=== PATIENT | male | born 1955 | race Caucasian/White ===

== ENCOUNTER → 2017-10-06 | Outpatient (CLI) | payer MEDICARE, SELFPAY | PROVIDERS: Visit Provider Emergency Medicine | DX: Z79.899 Other long term (current) drug therapy (principal) | CPT/HCPCS: 80305 ==

== ENCOUNTER → 2017-10-30 10:54 | Outpatient (REF) | payer MEDICARE, SELFPAY ==
[2017-10-30 13:02] LABS: Amphetamine/Metha Screen,Urine Negative ng/mL (<1000); Barbiturates Screen,Urine Negative ng/mL (<200); Benzodiazepines Screen,Urine Negative ng/mL (200); Cannabinoid Screen,Urine Negative ng/mL (<50); Cocaine Screen,Urine Negative ng/g (<300); Methadone Screen,Urine Negative ng/mL (<300); Opiate Screen,Urine Positive ng/mL (<300); Phencyclidine Screen,Urine Negative ng/mL (<25)
== END ==
LOC: LAB 10:54
PROVIDERS: Visit Provider Emergency Medicine
DX: Z79.899 Other long term (current) drug therapy (principal)
CPT/HCPCS: 80305

== ENCOUNTER → 2017-11-26 11:46 | Outpatient (CLI) | payer MEDICARE, SELFPAY ==
[2017-11-26 12:31] LABS: Anion Gap 11.9 mEq/L (5-15); Blood Urea Nitrogen 16 mg/dL (7-18); Carbon Dioxide 30 mmol/L (21.0-32.0); Chloride 105 mmol/L (98-107); Creatinine,Serum 0.88 mg/dL (0.70-1.30); Estimated Glomerular Filt Rate 87 ml/min (>60); GFR (African American) 106 ML/MIN (>60); Glucose 105 mg/dL (74-106); Potassium 3.9 mmoL/L (3.5-5.1); Sodium 143 mmol/L (136-145)
[2017-11-26 20:33] LABS: Basophils # 0.1 K/mm3 (0-0.2); Basophils % 0.9 % (0.1-2.0); Eosinophils # 0.2 K/mm3 (0.0-0.4); Eosinophils % 3.3 % (0.1-12.0); Hemoglobin 12.9 g/dL (14.1-18.0); Lymphocytes % 31.5 K/mm3 (10-50); Mean Corpuscular HGB Conc 33.2 g/dL (31.8-35.4); Mean Corpuscular Hemoglobin 29.9 pg (27.0-31.2); Mean Platelet Volume 8.5 fl (7.4-10.4); Monocytes # 0.4 K/mm3 (0.1-1.0); Monocytes % 6.5 % (1.7-9.3); Neutrophils # 3.6 K/mm3 (1.8-7.8); Neutrophils % 57.8 % (37.0-80.0); Platelet Count 179 K/mm3 (142-424); Red Blood Count 4.34 M/mm3 (4.60-6.20); Red Cell Distribution Width 12.6 % (11.5-17.5); White Blood Count 6.3 K/mm3 (4.8-10.8)
== END ==
PROVIDERS: PCP Emergency Medicine; Visit Provider Surgery
DX: Z01.818 Encounter for other preprocedural examination (principal)
CPT/HCPCS: 36415; 80048; 85025

== ENCOUNTER 2017-12-03 07:56 | Day surgery (SDC) | payer MEDICARE, SELFPAY ==
[2017-11-30 15:06] VITALS: BMI 36.8
[2017-12-03 08:22] VITALS: BP 134/70; PULSE 85; RESP 20; TEMP 36.9; O2SAT 95
[2017-12-03 08:41] VITALS: O2SAT 98
--- NOTE | 2017-12-03 09:18 | HMH.SCOPE ---
- Procedure: Date: 12/03/17 Procedure Performed:: Esophagogastroduodenoscopy with biopsy Colonoscopy with polypectomy Indications:: This is a 62-year-old gentleman who returns for repeat colonoscopy. On October 18, 2014 he had a colonoscopy that revealed a tubular adenoma at 5 cm. Some difficulty with visualization, as well as a size/nature of the polyp led to the need for short-term reevaluation. In addition, he has some fairly significant heartburn over the past few months. Performing Provider:: Willie Dawn MD Referring Provider:: Dr. Ryan Sedation:: Monitored anesthesia care Procedure:: After informed consent was obtained, the patient was taken to the endoscopy suite. Monitored anesthesia care ensued after he was transferred to the left lateral decubitus position. The gastroscope was advanced. Stomach was entered. Retroflexion revealed a moderate sliding hiatal hernia. Streaking gastritis distally versus GAVE was noted biopsies were obtained. The polyp intubated. The duodenal mucosa appeared relatively normal. The gastroesophageal junction was at 38 cm. The gastroscope was carefully removed. Digital rectal exam revealed some tags. No thrombosis or bleeding was noted. The colonoscope was placed in position. The entire colon was evaluated. Bowel preparation was poor. A cecal polyp was excised by way of snare. Visualization was very limited. The colonoscope was removed and the patient was transferred to recovery. Findings:: Gastroesophageal junction at 38cm GAVE versus streaking gastritis distally Moderate sliding hiatal hernia Bowel preparation poor for colonoscopy Cecal polyp Specimens:: Antral biopsy Cecal polyp (snared) Recommendations:: Repeat colonoscopy is pending pathology but will likely be around 6 months secondary to severe limitations in visualization/poor prep. Complications:: No immediate with the exception of poor bowel preparation Estimated blood obtained (mL): 1
[2017-12-03 09:20] VITALS: BP 116/82; PULSE 93; RESP 16; TEMP 36.8; O2SAT 96
[2017-12-03 09:30] VITALS: BP 117/69; PULSE 88; RESP 18; O2SAT 96
[2017-12-03 09:40] VITALS: BP 99/81; PULSE 81; RESP 16; O2SAT 95
[2017-12-03 09:50] VITALS: BP 109/71; PULSE 80; RESP 16; O2SAT 97
--- NOTE | 2017-12-03 10:20 | P.PN_ITS ---
[facility] Anesthesia Checklist - Structural Data Admitted From: Home Planned Operative Procedure/s: egd/colonoscopy Consent for Planned Operative Procedure(s) Verified: Yes - Airway Assessment C-Spine Mobility Assessed: Yes TMJ Mobility Assessed: Yes Dentition: Good Dentition - Neurological Assessment Level of Consciousness: Awake, Alert - Anesthesia Plan Anesthesia Risk discussed: Yes Anesthesia Plan: Verified ASA Class: III Anesthesia Type: MAC [facility] Anesthesia HX I have reviewed the patient's past medical history: Yes Medical History: Reports:: Coronary Artery Disease, Gastroesophageal Reflux Disease(GERD), Hyperlipidemia, Hypertension Denies:: Diabetes Mellitus Type 1, Diabetes Mellitus Type 2, Internal Pacemaker, Lung Disease, Seizures Other Medical History: Reports: Other (Stroke) Other Surgeries: Yes: Angioplasty, Colonoscopy, Coronary Stent (x4 in 2016), EGD , Other (Heart Stents). No: Pacemaker Amputation: No Fractures: No *Family Hx:: Diabetes, Heart Attack, Coronary Artery Disease
== END 2017-12-03 09:50 | disposition home or self-care (01) ==
LOC: OUTP 07:58
PROVIDERS: PCP Emergency Medicine; Visit Provider Surgery
PROC: 0DJ08ZZ Inspection of Upper Intestinal Tract, Via Natural or Artificial Opening Endoscopic (ICD-10-PCS; CPT 43235; principal; 2017-12-03 08:30)
DX: K44.9 Diaphragmatic hernia without obstruction or gangrene (principal); K29.70 Gastritis, unspecified, without bleeding; Z86.010 Personal history of colon polyps; K63.5 Polyp of colon; Z12.11 Encounter for screening for malignant neoplasm of colon; D12.0 Benign neoplasm of cecum; K31.819 Angiodysplasia of stomach and duodenum without bleeding
CPT/HCPCS: 43239; 45385; 88305

== ENCOUNTER → 2017-12-21 11:07 | Outpatient (REF) | payer MEDICARE, SELFPAY ==
[2017-12-21 15:00] LABS: Amphetamine/Metha Screen,Urine Negative ng/mL (<1000); Barbiturates Screen,Urine Negative ng/mL (<200); Benzodiazepines Screen,Urine Negative ng/mL (200); Cannabinoid Screen,Urine Negative ng/mL (<50); Cocaine Screen,Urine Negative ng/g (<300); Methadone Screen,Urine Negative ng/mL (<300); Opiate Screen,Urine Positive ng/mL (<300); Phencyclidine Screen,Urine Negative ng/mL (<25)
== END ==
LOC: LAB 11:07
PROVIDERS: Visit Provider Emergency Medicine
DX: Z79.899 Other long term (current) drug therapy (principal)
CPT/HCPCS: 80305

== ENCOUNTER → 2018-02-08 10:18 | Outpatient (REF) | payer MEDICARE, SELFPAY ==
[2018-02-08 13:55] LABS: Amphetamine/Metha Screen,Urine Negative ng/mL (<1000); Barbiturates Screen,Urine Negative ng/mL (<200); Benzodiazepines Screen,Urine Negative ng/mL (200); Cannabinoid Screen,Urine Negative ng/mL (<50); Cocaine Screen,Urine Negative ng/g (<300); Methadone Screen,Urine Negative ng/mL (<300); Opiate Screen,Urine Positive ng/mL (<300); Phencyclidine Screen,Urine Negative ng/mL (<25)
== END ==
LOC: LAB 10:18
PROVIDERS: Visit Provider Emergency Medicine
DX: Z79.899 Other long term (current) drug therapy (principal)
CPT/HCPCS: 80305

== ENCOUNTER → 2018-03-08 11:24 | Outpatient (REF) | payer MEDICARE, SELFPAY ==
[2018-03-08 14:21] LABS: Amphetamine/Metha Screen,Urine Negative ng/mL (<1000); Barbiturates Screen,Urine Negative ng/mL (<200); Benzodiazepines Screen,Urine Negative ng/mL (200); Cannabinoid Screen,Urine Negative ng/mL (<50); Cocaine Screen,Urine Negative ng/g (<300); Methadone Screen,Urine Negative ng/mL (<300); Opiate Screen,Urine Positive ng/mL (<300); Phencyclidine Screen,Urine Negative ng/mL (<25)
== END ==
LOC: LAB 11:24
PROVIDERS: Visit Provider Emergency Medicine
DX: Z79.899 Other long term (current) drug therapy (principal)
CPT/HCPCS: 80305

== ENCOUNTER → 2018-03-31 10:12 | Outpatient (REF) | payer MEDICARE, SELFPAY ==
[2018-03-31 14:17] LABS: Amphetamine/Metha Screen,Urine Negative ng/mL (<1000); Barbiturates Screen,Urine Negative ng/mL (<200); Benzodiazepines Screen,Urine Negative ng/mL (200); Cannabinoid Screen,Urine Negative ng/mL (<50); Cocaine Screen,Urine Negative ng/g (<300); Methadone Screen,Urine Negative ng/mL (<300); Opiate Screen,Urine Positive ng/mL (<300); Phencyclidine Screen,Urine Negative ng/mL (<25)
== END ==
LOC: LAB 10:12
PROVIDERS: Visit Provider Emergency Medicine
DX: Z79.899 Other long term (current) drug therapy (principal)
CPT/HCPCS: 80305

== ENCOUNTER → 2018-05-05 10:00 | Outpatient (REF) | payer MEDICARE, SELFPAY ==
[2018-05-05 18:34] LABS: Amphetamine/Metha Screen,Urine Negative ng/mL (<1000); Barbiturates Screen,Urine Negative ng/mL (<200); Benzodiazepines Screen,Urine Negative ng/mL (<200); Cannabinoid Screen,Urine Negative ng/mL (<50); Cocaine Screen,Urine Negative ng/mL (<300); Methadone Screen,Urine Negative ng/mL (<300); Opiate Screen,Urine Positive ng/mL (<300); Phencyclidine Screen,Urine Negative ng/mL (<25)
== END ==
LOC: LAB 10:00
PROVIDERS: Visit Provider Emergency Medicine
DX: Z79.899 Other long term (current) drug therapy (principal)
CPT/HCPCS: 80305

== ENCOUNTER → 2018-06-02 13:20 | Outpatient (REF) | payer MEDICARE, SELFPAY ==
[2018-06-02 19:32] LABS: Basophils % 0.7 % (0.1-2.0); Eosinophils # 0.1 K/mm3 (0.0-0.4); Eosinophils % 1.5 % (0.1-12.0); Hematocrit 40.3 % (42.0-52.0); Lymphocytes # 1.5 K/mm3 (0.7-4.5); Lymphocytes % 25.3 K/mm3 (10-50); Mean Corpuscular HGB Conc 32.4 g/dL (31.8-35.4); Mean Corpuscular Hemoglobin 28.9 pg (27.0-31.2); Mean Corpuscular Volume 89.1 fl (80-94); Monocytes # 0.3 K/mm3 (0.1-1.0); Monocytes % 5.9 % (1.7-9.3); Neutrophils # 3.9 K/mm3 (1.8-7.8); Neutrophils % 66.6 % (37.0-80.0); Platelet Count 228 K/mm3 (142-424); Red Blood Count 4.52 M/mm3 (4.60-6.20); Red Cell Distribution Width 12.6 % (11.5-17.5); White Blood Count 5.8 K/mm3 (4.8-10.8)
[2018-06-02 20:10] LABS: Alanine Aminotransferase 25 U/L (12-78); Albumin Level 3.9 gm/dL (3.4-5.0); Albumin/Globulin Ratio 1.3 (1.1-1.8); Alkaline Phosphatase 55 U/L (46-116); Anion Gap 13.4 mEq/L (5-15); Aspartate Amino Transferase 11 U/L (15-37); Bilirubin,Total 0.3 mg/dL (0.2-1.0); Blood Urea Nitrogen 19 mg/dL (7-18); Carbon Dioxide 28 mmol/L (21.0-32.0); Chloride 105 mmol/L (98-107); Cholesterol 116 mg/dL (140-200); Creatinine,Serum 1.13 mg/dL (0.70-1.30); Estimated Glomerular Filt Rate 66 ml/min (>60); Free T4 (Free Thyroxine) 0.76 ng/dl (0.76-1.46); GFR (African American) 79 ML/MIN (>60); Glucose 113 mg/dL (74-106); HDL Cholesterol 39 mg/dL (27-67); LDL Cholesterol 46 mg/dL (0-130); Potassium 4.4 mmoL/L (3.5-5.1); Sodium 142 mmol/L (136-145); Thyroid Stimulating Hormone 0.73 uIU/ml (0.358-3.740); Total Protein,Serum 6.9 gm/dL (6.4-8.2); Triglycerides 157 mg/dL (30-200); VLDL Cholesterol 31 mg/dL (0-40)
[2018-06-02 20:19] LABS: Amphetamine/Metha Screen,Urine Negative ng/mL (<1000); Barbiturates Screen,Urine Negative ng/mL (<200); Benzodiazepines Screen,Urine Negative ng/mL (<200); Cannabinoid Screen,Urine Negative ng/mL (<50); Cocaine Screen,Urine Negative ng/mL (<300); Methadone Screen,Urine Negative ng/mL (<300); Opiate Screen,Urine Positive ng/mL (<300); Phencyclidine Screen,Urine Negative ng/mL (<25)
[2018-06-02 22:11] LABS: Erythrocyte Sedimentation Rate 15 mm/hr (0-20)
[2018-06-04 09:10] LABS: Vitamin D 25 Hydroxy 36.1 ng/mL (30.0-100.0)
[2018-06-04 18:08] LABS: Vitamin B12 667 pg/mL (232-1245)
[2018-06-08 08:27] LABS: Testosterone, Total, LC/MS 268.9 ng/dL (264.0-916.0); Testosterone,Free 2.3 pg/mL (6.6-18.1)
== END ==
LOC: LAB 13:20
PROVIDERS: Visit Provider Emergency Medicine
DX: Z79.899 Other long term (current) drug therapy (principal); M54.9 Dorsalgia, unspecified; I25.10 Atherosclerotic heart disease of native coronary artery without angina pectoris; E78.5 Hyperlipidemia, unspecified
CPT/HCPCS: 80053; 80061; 80305; 82607; 82652; 84402; 84403; 84439; 84443; 85025; 85651

== ENCOUNTER → 2018-07-02 10:48 | Outpatient (CLI) | payer MEDICARE, SELFPAY ==
[2018-07-02 18:20] LABS: Amphetamine/Metha Screen,Urine Negative ng/mL (<1000); Barbiturates Screen,Urine Negative ng/mL (<200); Benzodiazepines Screen,Urine Negative ng/mL (<200); Cannabinoid Screen,Urine Negative ng/mL (<50); Cocaine Screen,Urine Negative ng/mL (<300); Methadone Screen,Urine Negative ng/mL (<300); Opiate Screen,Urine Positive ng/mL (<300); Phencyclidine Screen,Urine Negative ng/mL (<25)
[2018-07-05 05:25] LABS: PSA, Free 0.17 ng/mL; Prostate Specific Ag 0.9 ng/mL (0.0-4.0)
== END ==
PROVIDERS: Visit Provider Emergency Medicine
DX: Z79.899 Other long term (current) drug therapy (principal); N52.9 Male erectile dysfunction, unspecified; N42.9 Disorder of prostate, unspecified
CPT/HCPCS: 80305; 84153; 84154

== ENCOUNTER → 2018-07-08 09:36 | Outpatient (CLI) | payer MEDICARE, SELFPAY ==
--- NOTE | 2018-07-08 09:37 | CI_ITS ---
Cerebrovascular Exam Indications: 785.9 Bruit. IMPRESSIONS 1. The bilateral vertebral arteries are patent with normal antegrade flow. 2. The bilateral subclavian arteries reveal no evidence of significant stenosis. 3. The bilateral external carotid arteries reveal no evidence of significant stenosis. 4. Study suggests less than 20% stenosis involving the right internal carotid artery. 5. Study suggests less than 20% stenosis involving the left internal carotid artery. Carotid duplex study. Complete study and Doppler flow study including spectral analysis, color and schwarz scale imaging. Height: Height: 172.7cm. Height: 68in. Weight: Weight: 102.1kg. Weight: 224.5lb. Body mass index: BMI: 34.2kg/m^2. Body surface area: BSA: 2.25m^2. Location: Vascular laboratory. Patient status: Outpatient. Tables: Arterial flow: + +---------+--------+ Location V sys V ed + +---------+--------+ Right CCA - proximal 71.7cm/s 19.5cm/s + +---------+--------+ Right CCA - distal -59.9cm/s 17.2cm/s + +---------+--------+ Right ECA 116cm/s 24.3cm/s + +---------+--------+ Right ICA - proximal 61.8cm/s 24.3cm/s + +---------+--------+ Right ICA - mid 70cm/s 33.1cm/s + +---------+--------+ Right ICA - distal 56.2cm/s 20.4cm/s + +---------+--------+ Right vertebral 49.6cm/s 24.3cm/s + +---------+--------+ Left CCA - proximal 104cm/s 27.9cm/s + +---------+--------+ Left CCA - distal 71.1cm/s 22.6cm/s + +---------+--------+ Left ECA 72.8cm/s 20.4cm/s + +---------+--------+ Left ICA - proximal 66.3cm/s 31.4cm/s + +---------+--------+ Left ICA - mid 113cm/s 40.5cm/s + +---------+--------+ Left ICA - distal 66.3cm/s 24.4cm/s + +---------+--------+ Left vertebral 48.1cm/s 20.6cm/s + +---------+--------+ Velocity ratios: + + + + + Right, V ed Left, V sys Left, V ed + + + + + Max ICA/dist CCA 1.92 1.59 1.79 + + + + + (Report amended ) Electronically signed by: Herber Mena [id number]
== END ==
PROVIDERS: PCP Emergency Medicine; Visit Provider Internal Medicine
DX: I73.9 Peripheral vascular disease, unspecified (principal); I25.10 Atherosclerotic heart disease of native coronary artery without angina pectoris; R09.89 Other specified symptoms and signs involving the circulatory and respiratory systems
CPT/HCPCS: 93880

== ENCOUNTER → 2018-07-28 14:28 | Outpatient (REF) | payer MEDICARE, SELFPAY ==
[2018-07-28 19:32] LABS: Amphetamine/Metha Screen,Urine Negative ng/mL (<1000); Barbiturates Screen,Urine Negative ng/mL (<200); Benzodiazepines Screen,Urine Negative ng/mL (<200); Cannabinoid Screen,Urine Negative ng/mL (<50); Cocaine Screen,Urine Negative ng/mL (<300); Methadone Screen,Urine Negative ng/mL (<300); Opiate Screen,Urine Positive ng/mL (<300); Phencyclidine Screen,Urine Negative ng/mL (<25)
== END ==
LOC: LAB 14:28
PROVIDERS: Visit Provider Emergency Medicine
DX: Z79.899 Other long term (current) drug therapy (principal)
CPT/HCPCS: 80305

== ENCOUNTER → 2018-08-26 18:29 | Outpatient (CLI) | payer MEDICARE, SELFPAY ==
[2018-08-26 19:50] LABS: Amphetamine/Metha Screen,Urine Negative ng/mL (<1000); Barbiturates Screen,Urine Negative ng/mL (<200); Benzodiazepines Screen,Urine Negative ng/mL (<200); Cannabinoid Screen,Urine Negative ng/mL (<50); Cocaine Screen,Urine Negative ng/mL (<300); Methadone Screen,Urine Negative ng/mL (<300); Opiate Screen,Urine Positive ng/mL (<300); Phencyclidine Screen,Urine Negative ng/mL (<25)
== END ==
PROVIDERS: Visit Provider Emergency Medicine
DX: Z79.899 Other long term (current) drug therapy (principal)
CPT/HCPCS: 80305

== ENCOUNTER → 2018-09-22 13:44 | Outpatient (CLI) | payer MEDICARE, SELFPAY ==
[2018-09-22 15:19] LABS: Amphetamine/Metha Screen,Urine Negative ng/mL (<1000); Barbiturates Screen,Urine Negative ng/mL (<200); Benzodiazepines Screen,Urine Negative ng/mL (<200); Cannabinoid Screen,Urine Negative ng/mL (<50); Cocaine Screen,Urine Negative ng/mL (<300); Methadone Screen,Urine Negative ng/mL (<300); Opiate Screen,Urine Positive ng/mL (<300); Phencyclidine Screen,Urine Negative ng/mL (<25)
== END ==
PROVIDERS: Visit Provider Emergency Medicine
DX: G89.29 Other chronic pain (principal); M54.5 Low back pain
CPT/HCPCS: 80305

== ENCOUNTER → 2018-10-25 14:03 | Outpatient (CLI) | payer MEDICARE, SELFPAY ==
[2018-10-25 19:16] LABS: Amphetamine/Metha Screen,Urine Negative ng/mL (<1000); Barbiturates Screen,Urine Negative ng/mL (<200); Benzodiazepines Screen,Urine Negative ng/mL (<200); Cannabinoid Screen,Urine Negative ng/mL (<50); Cocaine Screen,Urine Negative ng/mL (<300); Methadone Screen,Urine Negative ng/mL (<300); Opiate Screen,Urine Negative ng/mL (<300); Phencyclidine Screen,Urine Negative ng/mL (<25)
[2018-10-31 07:08] LABS: Oxycodone (GC/MS) 1925 ng/mL (Cutoff=100)
[2018-11-01 07:02] LABS: Opiates Negative (Cutoff=100); Oxymorphone (GC/MS) 392 ng/mL (Cutoff=100)
== END ==
PROVIDERS: Visit Provider Emergency Medicine
DX: G89.29 Other chronic pain (principal); M54.5 Low back pain
CPT/HCPCS: 80305; 80361; 80365; G0480

== ENCOUNTER → 2018-12-22 14:01 | Outpatient (CLI) | payer MEDICARE, SELFPAY ==
[2018-12-22 15:00] LABS: Amphetamine/Metha Screen,Urine Negative ng/mL (<1000); Barbiturates Screen,Urine Negative ng/mL (<200); Benzodiazepines Screen,Urine Negative ng/mL (<200); Cannabinoid Screen,Urine Negative ng/mL (<50); Cocaine Screen,Urine Negative ng/mL (<300); Methadone Screen,Urine Negative ng/mL (<300); Opiate Screen,Urine Negative ng/mL (<300); Phencyclidine Screen,Urine Negative ng/mL (<25)
== END ==
PROVIDERS: Visit Provider Emergency Medicine
DX: Z79.899 Other long term (current) drug therapy (principal)
CPT/HCPCS: 80305

== ENCOUNTER → 2019-02-21 13:48 | Outpatient (CLI) | payer MEDICARE, SELFPAY ==
[2019-02-21 14:29] LABS: Amphetamine/Metha Screen,Urine Negative ng/mL (<1000); Barbiturates Screen,Urine Negative ng/mL (<200); Benzodiazepines Screen,Urine Negative ng/mL (<200); Cannabinoid Screen,Urine Negative ng/mL (<50); Cocaine Screen,Urine Negative ng/mL (<300); Methadone Screen,Urine Negative ng/mL (<300); Opiate Screen,Urine Negative ng/mL (<300); Phencyclidine Screen,Urine Negative ng/mL (<25)
[2019-03-01 15:09] LABS: Oxycodone (GC/MS) 667 ng/mL (Cutoff=100)
[2019-03-02 06:52] LABS: Opiates Negative (Cutoff=100)
== END ==
PROVIDERS: Visit Provider Emergency Medicine
DX: G89.29 Other chronic pain (principal); M54.5 Low back pain; Z79.899 Other long term (current) drug therapy
CPT/HCPCS: 80305; 80361; 80365; G0480

== ENCOUNTER → 2019-03-16 13:16 | Outpatient (CLI) | payer MEDICARE, SELFPAY ==
--- NOTE | 2019-03-16 13:17 | CA_ITS ---
PROCEDURE: 2-D M-mode and color Doppler study INDICATIONS FOR THE TEST: Chest pain+ COPD Heart Murmur Tobacco Smoking Palpitations Fatigue Syncope Edema Hypertension+Diabetes Mellitus Rheumatic Fever SOB [place] Obesity Hyperlipidemia+ Family History HD Additional History CAD, GERD, cath, 4 cardiac stents PATIENT INFORMATION HEIGHT: 68 WEIGHT: 228 GENDER: Male B/P: 118/70 2-D/M-MODE INTERPRETATION: 2-D MEASUREMENTS OBSERVED VALUES IN CMS Right Ventricular Dimension (RVDd) 2.4 Interventricular Septum (Thickness)(IVsd) 0.9 Left Ventricular Internal Dimensions(LVIDd) 4.6 Left Ventricular Posterior Wall (Thickness)(LVPWd) 0.9 Aortic Root 3.0 Aortic Cusp Separation 2.0 Left Atrial Dimensions (LAD) 3.7 2D 1. Left atrium is mildly enlarged, left ventricle is normal size, mild concentric left ventricular hypertrophy, visually estimated ejection fraction of 55% with no regional wall motion abnormality. 2. The right atrium and right ventricle are normal size and contractility. 3. The aortic valve is minimally thickened and fibrosed. 4. The mitral and tricuspid valvular normal. 5. The pulmonic valve is poorly visualized. 6. No significant pericardial effusion noted. DOPPLER INTERROGATION: Doppler interrogation of the aortic, mitral and tricuspid valvular presence of mild mitral and tricuspid regurgitation, tricuspid regurgitation jet velocity is inadequate for calculation of the right ventricular systolic pressure, grade 1 diastolic dysfunction seen without tissue Doppler evidence of raised left atrial pressure. CONCLUSION: 1. Mildly enlarged left atrium, normal left ventricular size, mild concentric left ventricular hypertrophy, visually estimated ejection fraction of 55% with no regional wall motion abnormality, grade 1 diastolic dysfunction seen without tissue Doppler evidence of raised left atrial pressure. 2. Mild mitral and tricuspid regurgitation 3. No significant pericardial effusion noted.
== END ==
PROVIDERS: PCP Emergency Medicine; Visit Provider Urology
DX: I25.10 Atherosclerotic heart disease of native coronary artery without angina pectoris (principal); R06.02 Shortness of breath
CPT/HCPCS: 93306

== ENCOUNTER → 2019-04-19 14:20 | Outpatient (CLI) | payer MEDICARE, SELFPAY ==
[2019-04-19 16:20] LABS: Amphetamine/Metha Screen,Urine Negative ng/mL (<1000); Barbiturates Screen,Urine Negative ng/mL (<200); Benzodiazepines Screen,Urine Negative ng/mL (<200); Cannabinoid Screen,Urine Negative ng/mL (<50); Cocaine Screen,Urine Negative ng/mL (<300); Methadone Screen,Urine Negative ng/mL (<300); Opiate Screen,Urine Negative ng/mL (<300); Phencyclidine Screen,Urine Negative ng/mL (<25)
[2019-05-01 23:20] LABS: Oxycodone Positive (.); Oxymorphone Positive (.)
[2019-05-02 16:40] LABS: Oxycodone Confirm 807 ng/mL (Cutoff=100); Oxymorphone Confirm 148 ng/mL (Cutoff=100)
== END ==
PROVIDERS: Visit Provider Emergency Medicine
DX: G89.29 Other chronic pain (principal); Z79.891 Long term (current) use of opiate analgesic
CPT/HCPCS: 80305; 80365

== ENCOUNTER → 2019-06-07 07:04 | Outpatient (CLI) | payer MEDICARE, SELFPAY ==
[2019-06-07 08:47] LABS: Alanine Aminotransferase 22 U/L (12-78); Albumin Level 3.8 gm/dL (3.4-5.0); Alkaline Phosphatase 50 U/L (46-116); Aspartate Amino Transferase 10 U/L (15-37); Bilirubin,Direct 0.1 mg/dL (0.0-0.2); Bilirubin,Indirect 0.3 mg/dL (0.0-0.9); Bilirubin,Total 0.4 mg/dL (0.2-1.0); Chol/HDL Ratio 4.2 (1-3.5); Cholesterol 160 mg/dL (140-200); HDL Cholesterol 38 mg/dL (27-67); LDL Cholesterol 89 mg/dL (0-130); Total Protein,Serum 7.1 gm/dL (6.4-8.2); Triglycerides 164 mg/dL (30-200); VLDL Cholesterol 33 mg/dL (0-40)
== END ==
PROVIDERS: Visit Provider Internal Medicine
DX: I10 Essential (primary) hypertension (principal); E78.2 Mixed hyperlipidemia; I25.10 Atherosclerotic heart disease of native coronary artery without angina pectoris; Z95.5 Presence of coronary angioplasty implant and graft
CPT/HCPCS: 36415; 80061; 80076

== ENCOUNTER → 2019-06-08 10:36 | Outpatient (CLI) | payer MEDICARE, SELFPAY ==
--- NOTE | 2019-06-08 11:04 | CT_ITS ---
PROCEDURE: CT HEAD/BRAIN WO/W CON CLINICAL INDICATION: chronic headaches COMPARISON: HDWO CT HEAD W/O CONTRAST from 06/05/2017 TECHNIQUE: IV Contrast: 100ML OPITRAY 320 Axial images obtained with sagittal and coronal reformats. All CT scans at the facility use one or more dose reduction, viz: automated exposure control, ma/kV adjustment per patient size (including targeted exams where dose is matched to indication, i.e. head), or iterative reconstruction technique. FINDINGS: No midline shift, mass effect, intracranial hemorrhage, hydrocephalus, or extra-axial fluid collection is evident. No enhancing lesions are evident. The calvarium has an unremarkable appearance. No mastoid effusion or sinus air-fluid level there is mild mucosal thickening of the right maxillary sinus IMPRESSION: Negative CT head without contrast. Mild sinus disease Dictated by: Herber Mena MD 06/08/2019 18:16 Signed by: <Electronically signed by Herber Mena MD in [facility]> 06/08/2019 18:16
[2019-06-08 11:20] LABS: Alanine Aminotransferase 22 U/L (12-78); Alkaline Phosphatase 52 U/L (46-116); Anion Gap 9.6 mEq/L (5-15); Aspartate Amino Transferase 11 U/L (15-37); Bilirubin,Direct 0.1 mg/dL (0.0-0.2); Bilirubin,Indirect 0.3 mg/dL (0.0-0.9); Bilirubin,Total 0.4 mg/dL (0.2-1.0); Blood Urea Nitrogen 17 mg/dL (7-18); Calcium 9.2 mg/dL (8.5-10.1); Carbon Dioxide 32 mmol/L (21.0-32.0); Chloride 99 mmol/L (98-107); Chol/HDL Ratio 3.8 (1-3.5); Cholesterol 150 mg/dL (140-200); Creatinine,Serum 1.23 mg/dL (0.70-1.30); Estimated Glomerular Filt Rate 59 ml/min (>60); GFR (African American) 72 ML/MIN (>60); Glucose 104 mg/dL (74-106); HDL Cholesterol 39 mg/dL (27-67); LDL Cholesterol 80 mg/dL (0-130); Potassium 4.6 mmoL/L (3.5-5.1); Sodium 136 mmol/L (136-145); Total Protein,Serum 7.6 gm/dL (6.4-8.2); Triglycerides 157 mg/dL (30-200); VLDL Cholesterol 31 mg/dL (0-40)
== END ==
PROVIDERS: Visit Provider Urology
DX: E78.2 Mixed hyperlipidemia; I25.118 Atherosclerotic heart disease of native coronary artery with other forms of angina pectoris; R06.02 Shortness of breath; I10 Essential (primary) hypertension; I25.10 Atherosclerotic heart disease of native coronary artery without angina pectoris; R55 Syncope and collapse; E78.5 Hyperlipidemia, unspecified; R42 Dizziness and giddiness; R51 Headache; Z95.5 Presence of coronary angioplasty implant and graft; I65.23 Occlusion and stenosis of bilateral carotid arteries
CPT/HCPCS: 36415; 70470; 80048; 80061; 80076; Q9967

== ENCOUNTER → 2019-06-21 13:40 | Outpatient (CLI) | payer MEDICARE, SELFPAY ==
[2019-06-21 15:58] LABS: Amphetamine/Metha Screen,Urine Negative ng/mL (<1000); Barbiturates Screen,Urine Negative ng/mL (<200); Benzodiazepines Screen,Urine Negative ng/mL (<200); Cannabinoid Screen,Urine Negative ng/mL (<50); Cocaine Screen,Urine Negative ng/mL (<300); Methadone Screen,Urine Negative ng/mL (<300); Opiate Screen,Urine Negative ng/mL (<300); Phencyclidine Screen,Urine Negative ng/mL (<25)
== END ==
PROVIDERS: Visit Provider Emergency Medicine
DX: G89.29 Other chronic pain (principal)
CPT/HCPCS: 80305

== ENCOUNTER → 2019-08-19 13:32 | Outpatient (CLI) | payer MEDICARE, SELFPAY ==
[2019-08-19 15:39] LABS: Amphetamine/Metha Screen,Urine Negative ng/mL (<1000); Barbiturates Screen,Urine Negative ng/mL (<200); Benzodiazepines Screen,Urine Negative ng/mL (<200); Cannabinoid Screen,Urine Negative ng/mL (<50); Cocaine Screen,Urine Negative ng/mL (<300); Methadone Screen,Urine Negative ng/mL (<300); Opiate Screen,Urine Negative ng/mL (<300); Phencyclidine Screen,Urine Negative ng/mL (<25)
[2019-08-28 13:17] LABS: Oxycodone Positive (.); Oxymorphone Negative (Cutoff=100)
[2019-08-28 17:23] LABS: Oxycodone Confirm 935 ng/mL (Cutoff=100)
== END ==
PROVIDERS: Visit Provider Emergency Medicine
DX: Z79.899 Other long term (current) drug therapy (principal)
CPT/HCPCS: 80305; 80365

== ENCOUNTER → 2019-10-05 13:30 | Outpatient (CLI) | payer MEDICARE, SELFPAY ==
[2019-10-05 19:37] LABS: Amphetamine/Metha Screen,Urine Negative ng/mL (<1000); Barbiturates Screen,Urine Negative ng/mL (<200); Benzodiazepines Screen,Urine Negative ng/mL (<200); Cannabinoid Screen,Urine Negative ng/mL (<50); Cocaine Screen,Urine Negative ng/mL (<300); Methadone Screen,Urine Negative ng/mL (<300); Opiate Screen,Urine Positive ng/mL (<300); Phencyclidine Screen,Urine Negative ng/mL (<25)
== END ==
PROVIDERS: Visit Provider Emergency Medicine
DX: Z79.899 Other long term (current) drug therapy (principal)
CPT/HCPCS: 80305

== ENCOUNTER → 2019-12-02 13:20 | Outpatient (CLI) | payer MEDICARE, SELFPAY ==
[2019-12-02 14:02] LABS: Blood Urea Nitrogen 23 mg/dL (7-18); Calcium 9.2 mg/dL (8.5-10.1); Carbon Dioxide 31 mmol/L (21.0-32.0); Chloride 104 mmol/L (98-107); Estimated Glomerular Filt Rate 61 ml/min (>60); GFR (African American) 74 ML/MIN (>60); Glucose 196 mg/dL (74-106); Sodium 143 mmol/L (137-145)
[2019-12-02 16:43] LABS: Amphetamine/Metha Screen,Urine Negative ng/mL (<1000); Barbiturates Screen,Urine Negative ng/mL (<200); Benzodiazepines Screen,Urine Negative ng/mL (<200); Cannabinoid Screen,Urine Negative ng/mL (<50); Cocaine Screen,Urine Negative ng/mL (<300); Methadone Screen,Urine Negative ng/mL (<300); Opiate Screen,Urine Negative ng/mL (<300); Phencyclidine Screen,Urine Negative ng/mL (<25)
[2019-12-02 17:24] LABS: Hemoglobin A1C 7.6 % (0.0-7.0)
[2019-12-11 18:13] LABS: Oxycodone (GC/MS) 1366 ng/mL (Cutoff=100)
[2019-12-11 22:07] LABS: Opiates Negative (Cutoff=100); Oxymorphone (GC/MS) 147 ng/mL (Cutoff=100)
== END ==
PROVIDERS: Visit Provider Emergency Medicine
DX: R53.83 Other fatigue (principal); Z79.899 Other long term (current) drug therapy
CPT/HCPCS: 80048; 80305; 80361; 80365; 83036; G0480

== ENCOUNTER → 2019-12-27 10:20 | Outpatient (CLI) | payer MEDICARE, SELFPAY ==
[2019-12-27 10:57] LABS: Basophils % 0.7 % (0.1-2.0); Eosinophils # 0.2 K/mm3 (0.0-0.4); Eosinophils % 3.9 % (0.1-12.0); Hemoglobin 11.7 g/dL (14.1-18.0); Lymphocytes # 1.2 K/mm3 (0.7-4.5); Lymphocytes % 22.6 % (10-50); Mean Corpuscular HGB Conc 33.5 g/dL (31.8-35.4); Mean Corpuscular Hemoglobin 29.4 pg (27.0-31.2); Mean Corpuscular Volume 87.7 fl (80-94); Mean Platelet Volume 7.6 fl (7.4-10.4); Monocytes # 0.4 K/mm3 (0.1-1.0); Monocytes % 6.5 % (1.7-9.3); Neutrophils # 3.5 K/mm3 (1.8-7.8); Neutrophils % 66.4 % (37.0-80.0); Platelet Count 216 K/mm3 (142-424); Red Blood Count 3.99 M/mm3 (4.60-6.20); Red Cell Distribution Width 12.6 % (11.5-17.5); White Blood Count 5.3 K/mm3 (4.8-10.8)
[2019-12-27 12:18] LABS: Alanine Aminotransferase 18 U/L (12-78); Albumin Level 4.2 g/dl (3.5-5.0); Alkaline Phosphatase 36 U/L (38-126); Aspartate Amino Transferase 27 U/L (17-59); Bilirubin,Indirect 0.4 mg/dL (0.0-0.9); Bilirubin,Total 0.4 mg/dl (0.2-1.3); Bilirubin,Unconjugated 0.4 mg/dL (0.0-1.1); Total Protein,Serum 6.8 g/dl (6.3-8.2)
== END ==
PROVIDERS: Visit Provider Surgery
DX: K82.8 Other specified diseases of gallbladder (principal); K82.9 Disease of gallbladder, unspecified
CPT/HCPCS: 36415; 80076; 85025

== ENCOUNTER → 2019-12-30 07:22 | Outpatient (CLI) | payer MEDICARE, SELFPAY ==
--- NOTE | 2019-12-30 07:23 | US_ITS ---
PROCEDURE: US GALLBLADDER CLINICAL INDICATION: RUQ and epigastric pain Right upper quadrant pain after eating COMPARISON: No exams were available for comparison FINDINGS: Pancreas: Poorly demonstrated and may be better evaluated with CT if clinically warranted Liver: Unremarkable. There is appropriate direction of blood flow within a non dilated portal vein. Right kidney: Unremarkable appearing. No hydronephrosis. Gallbladder: No stones are evident. There is no gallbladder wall thickening. Common duct is normal in diameter. IMPRESSION: Negative gallbladder ultrasound. No stones evident. Dictated by: Herber Mena MD 12/30/2019 10:14 Electronically signed by Herber Mena MD in [place] 12/30/2019 10:14
== END ==
PROVIDERS: PCP Emergency Medicine; Visit Provider Surgery
DX: K82.9 Disease of gallbladder, unspecified (principal); R10.11 Right upper quadrant pain
CPT/HCPCS: 76705

== ENCOUNTER → 2020-01-10 13:54 | Outpatient (CLI) | payer MEDICARE, SELFPAY ==
[2020-01-10 14:18] LABS: Basophils % 0.5 % (0.1-2.0); Eosinophils # 0.2 K/mm3 (0.0-0.4); Eosinophils % 2.6 % (0.1-12.0); Hematocrit 36.8 % (42.0-52.0); Hemoglobin 12.5 g/dL (14.1-18.0); Lymphocytes # 1.6 K/mm3 (0.7-4.5); Lymphocytes % 20.4 % (10-50); Mean Corpuscular HGB Conc 34.1 g/dL (31.8-35.4); Mean Platelet Volume 8.6 fl (7.4-10.4); Monocytes # 0.6 K/mm3 (0.1-1.0); Monocytes % 7.5 % (1.7-9.3); Neutrophils # 5.4 K/mm3 (1.8-7.8); Neutrophils % 68.9 % (37.0-80.0); Platelet Count 249 K/mm3 (142-424); Red Blood Count 4.18 M/mm3 (4.60-6.20); White Blood Count 7.8 K/mm3 (4.8-10.8)
[2020-01-10 14:25] LABS: Chloride 95 mmol/L (98-107); Potassium 4.7 mmoL/L (3.5-5.1); Sodium 136 mmol/L (136-145)
[2020-01-10 14:28] LABS: Anion Gap 14.7 mEq/L (5-15); Blood Urea Nitrogen 14 mg/dl (9-20); Calcium 9.5 mg/dl (8.4-10.2); Carbon Dioxide 31 mmol/L (22.0-30.0); Estimated Glomerular Filt Rate 67 ml/min (>60); GFR (African American) 81 ML/MIN (>60); Glucose 101 mg/dl (74-100)
[2020-01-10 14:41] LABS: Troponin I < 0.01 ng/ml (0.00-0.034)
[2020-01-10 15:12] LABS: Erythrocyte Sedimentation Rate 31 mm/hr (0-20)
== END ==
PROVIDERS: Visit Provider Physician Assistant
DX: R06.02 Shortness of breath (principal); R07.89 Other chest pain; R55 Syncope and collapse; I25.10 Atherosclerotic heart disease of native coronary artery without angina pectoris; R10.11 Right upper quadrant pain; R70.0 Elevated erythrocyte sedimentation rate
CPT/HCPCS: 36415; 80048; 84484; 85025; 85651

== ENCOUNTER → 2020-01-16 08:12 | Outpatient (CLI) | payer MEDICARE, SELFPAY ==
--- NOTE | 2020-01-16 08:13 | NM_ITS ---
PROCEDURE: NM HEPATOBILIARY WO PHARM CLINICAL INDICATION: ruq pain Chest pain with history of coronary stents COMPARISON: No exams were available for comparison TECHNIQUE: DOSE: 8.2 millicuries technetium 99 M Choletec administration FINDINGS: Homogeneous activity is present within the hepatic parenchyma. Activity is present in the gallbladder by 10 minutes. This is within normal limits. Approximately 45 minutes into the exam the patient reported the onset of chest pain and desired to discontinue the exam and present himself to the emergency department for evaluation of chest pain. Activity was not identified within the small intestine at termination of the exam at 45 minutes. This is nonspecific. The gallbladder ejection fraction was not performed. IMPRESSION: No evidence of cholecystitis. The exam was aborted by the patient at 45 minutes due to the onset of chest pain. Dictated by: Jack Salas 01/16/2020 10:00 Electronically signed by Jack Salas in [place] 01/16/2020 10:00
--- NOTE | 2020-01-16 09:46 | HMH.ITSHM ---
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 []RISPERIDONE MIRALAX METFORMIN LISINOPRIL GLIPIZIDE GABAPENTIN FLUOXETINE CLOPIDOGREL ATORVASTATIN FUROSEMIDE ASA PROAIR
== END ==
PROVIDERS: PCP Emergency Medicine; Visit Provider Surgery
DX: R10.11 Right upper quadrant pain (principal)
CPT/HCPCS: 78226; A9537

== ENCOUNTER → 2020-02-21 13:23 | Outpatient (CLI) | payer MEDICARE, SELFPAY ==
[2020-02-21 14:16] LABS: Erythrocyte Sedimentation Rate 28 mm/hr (0-20)
[2020-02-21 15:07] LABS: Thyroid Stimulating Hormone 0.76 uIU/mL (0.465-4.68)
[2020-02-22 08:42] LABS: Vitamin D 25 Hydroxy 19.9 ng/mL (30.0-100.0)
== END ==
PROVIDERS: Visit Provider Emergency Medicine
DX: K59.00 Constipation, unspecified (principal); R41.0 Disorientation, unspecified; R42 Dizziness and giddiness; R51 Headache; E55.9 Vitamin D deficiency, unspecified
CPT/HCPCS: 82652; 84439; 84443; 85651

== ENCOUNTER → 2020-02-23 10:33 | Outpatient (CLI) | payer MEDICARE, SELFPAY | PROVIDERS: PCP Emergency Medicine; Visit Provider Emergency Medicine | DX: J44.9 Chronic obstructive pulmonary disease, unspecified (principal) | CPT/HCPCS: 94060; 94618; 94726; 94729 ==

== ENCOUNTER → 2020-02-27 10:50 | Outpatient (CLI) | payer MEDICARE, SELFPAY ==
--- NOTE | 2020-02-27 10:50 | CA_ITS ---
APPROVED REPORT Nut Sheller: Yolie Padilla RVT Laterality: Bilateral Study Quality: Good Indications: dizziness/ possible TIA Risk Factors Hypertension: Doppler Spectral Velocity Analysis ECA (R) 106.30/8.70 cm/s ECA (L) 73.30/11.20 cm/s dICA (R) 66.60/24.00 cm/s dICA (L) 52.40/18.60 cm/s Lawrence (R) 62.60/22.20 cm/s Lawrence (L) 55.20/18.20 cm/s pICA (R) 68.40/25.30 cm/s pICA (L) 59.40/16.90 cm/s dCCA (R) 66.30/13.90 cm/s dCCA (L) 50.10/15.00 cm/s pCCA (R) 81.30/10.20 cm/s pCCA (L) 69.60/13.70 cm/s Vert (R) 35.40/13.10 cm/s Vert (L) 28.30/9.10 cm/s ICA/CCA 1.03 ICA/CCA 1.18 Conclusion Study suggests less than 20% stenosis of the right internal cartoid artery unchanged from 07/08/18. Study suggests less than 20% stenosis of the left internal cartoid artery unchanged from 07/08/18. Antegrade flow seen bilateral vertebral arteries. Left thyroid nodule visualized. Electronically signed by : Herber Mena MD 02/27/2020 18:18:36
== END ==
PROVIDERS: PCP Emergency Medicine; Visit Provider Emergency Medicine
DX: R42 Dizziness and giddiness (principal)
CPT/HCPCS: 93880

== ENCOUNTER → 2020-08-11 10:24 | Outpatient (CLI) | payer MEDICARE, SELFPAY ==
--- NOTE | 2020-08-11 10:24 | MR_ITS ---
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 3-D MIP and myelographic images are also rendered and reviewed FINDINGS: Normal alignment. Mild lumbar scoliosis convex right. The spinal cord ends at the L1 level. T11-T12: Mild degenerative disc disease with endplate of irregularity. T12-L1: Mild degenerative disc disease. L1-L2: Degenerate disc disease with minimal bulging disc along with facet and ligamentum hypertrophy with left-sided foraminal narrowing and anterior osteophytes. L2-L3: Mild degenerative disc disease with minimal bulging disc with facet and ligamentum hypertrophy with left-sided foraminal narrowing. L3-L4: Degenerative disc disease with bulging disc along with facet and ligamentum hypertrophy and a small central disc protrusion. Bilateral foraminal narrowing is present. The bulging disc is slightly worse in the small central disc protrusion has developed since the previous exam. L4-5: Severe degenerative disc disease with bulging disc and facet and ligamentum hypertrophy. There is severe left-sided foraminal narrowing and moderate right foraminal narrowing. These findings have worsened since the previous exam. There is prominent left lateral recess narrowing from the facet hypertrophy. L5-S1: Transitional segment is present at this level and is labeled as L5. Mild facet hypertrophy. IMPRESSION: 1. Multilevel lumbar spondylosis with degenerative disc disease along with facet and ligamentum hypertrophy and bulging discs. Please see above for detailed description at each level. 2. L3-L4: Degenerative disc disease with bulging disc along with facet and ligamentum hypertrophy and a small central disc protrusion. Bilateral foraminal narrowing is present. The bulging disc is slightly worse in the small central disc protrusion has developed since the previous exam. 3. L4-5: Severe degenerative disc disease with bulging disc and facet and ligamentum hypertrophy. There is severe left-sided foraminal narrowing and moderate right foraminal narrowing. These findings have worsened since the previous exam. There is prominent left lateral recess narrowing from the facet hypertrophy. Dictated by: Herber Mena MD 08/14/2020 11:35 Herber Mena MD in [place] 08/14/2020 11:35
== END ==
PROVIDERS: PCP Emergency Medicine; Visit Provider Emergency Medicine
DX: G89.29 Other chronic pain (principal); M54.5 Low back pain
CPT/HCPCS: 72148; 76376

== ENCOUNTER → 2021-01-23 14:07 | Outpatient (CLI) | payer MEDICARE, SELFPAY ==
[2021-01-23 15:27] LABS: Amphetamine/Metha Screen,Urine Negative ng/ml (<1000)
[2021-01-23 15:28] LABS: Barbiturates Screen,Urine Negative ng/ml (<200)
[2021-01-23 15:29] LABS: Benzodiazepines Screen,Urine Negative ng/ml (<200); Cannabinoid Screen,Urine Negative ng/ml (<50)
[2021-01-23 15:30] LABS: Cocaine Screen,Urine Negative ng/ml (<300); Methadone Screen,Urine Negative ng/ml (<300)
[2021-01-23 15:31] LABS: Opiate Screen,Urine Negative ng/ml (<300)
[2021-01-23 15:32] LABS: Phencyclidine Screen,Urine Negative ng/ml (<25)
== END ==
PROVIDERS: Visit Provider Emergency Medicine
DX: Z79.899 Other long term (current) drug therapy (principal)
CPT/HCPCS: 80305

== ENCOUNTER → 2021-03-08 07:47 | Outpatient (CLI) | payer MEDICARE, SELFPAY ==
[2021-03-08 09:08] LABS: Anion Gap 12.8 mEq/L (5-15); Blood Urea Nitrogen 13 mg/dl (9-20); Calcium 9.4 mg/dl (8.4-10.2); Carbon Dioxide 28 mmol/L (22.0-30.0); Chloride 102 mmol/L (98-107); Estimated Glomerular Filt Rate 75 ml/min (>60); GFR (African American) 90 ML/MIN (>60); Glucose 223 mg/dl (74-100); Potassium 4.8 mmoL/L (3.5-5.1); Sodium 138 mmol/L (136-145)
[2021-03-08 09:18] LABS: NT Pro Brain Natriuretic Pep. 50.4 pg/mL (0-125)
== END ==
PROVIDERS: Visit Provider Physician Assistant
DX: I10 Essential (primary) hypertension (principal); R06.01 Orthopnea
CPT/HCPCS: 36415; 80048; 83880

== ENCOUNTER → 2021-03-12 07:59 | Outpatient (CLI) | payer MEDICARE, SELFPAY ==
[2021-03-12 09:04] LABS: Hemoglobin A1C 7.1 % (4.0-6.0)
== END ==
PROVIDERS: Visit Provider Emergency Medicine
DX: R73.09 Other abnormal glucose (principal)
CPT/HCPCS: 36415; 83036

== ENCOUNTER → 2021-03-20 14:53 | Outpatient (CLI) | payer MEDICARE, SELFPAY ==
[2021-03-20 16:28] LABS: Amphetamine/Metha Screen,Urine Negative ng/ml (<1000); Barbiturates Screen,Urine Negative ng/ml (<200); Benzodiazepines Screen,Urine Negative ng/ml (<200); Cannabinoid Screen,Urine Negative ng/ml (<50); Cocaine Screen,Urine Negative ng/ml (<300); Methadone Screen,Urine Negative ng/ml (<300); Opiate Screen,Urine Negative ng/ml (<300); Phencyclidine Screen,Urine Negative ng/ml (<25)
== END ==
PROVIDERS: Visit Provider Emergency Medicine
DX: Z79.899 Other long term (current) drug therapy (principal)
CPT/HCPCS: 80305

== ENCOUNTER 2021-05-07 16:03 | Emergency (ER) | payer MEDICARE, SELFPAY ==
--- NOTE | 2021-05-07 15:51 | ECG_ITS ---
APPROVED REPORT Exam: Resting ECG HR:83 bpm ECG Measurements Heart Rate 83 AXES ME 144 P 40 QRSd 80 QRS 9 QT 344 T 34 QTc 404 Conclusion Normal sinus rhythm with sinus arrhythmia Normal ECG Electronically signed by : Malcolm Rodriguez, 05/09/2021 14:31:07
[2021-05-07 16:03] VITALS: BP 140/68; PULSE 83; RESP 19; TEMP 36.8; O2SAT 95; BMI 38.0
--- NOTE | 2021-05-07 16:07 | XR_ITS ---
PROCEDURE: XR CHEST 2V CLINICAL HISTORY: cough COMPARISON: CR XR CHEST PORTABLE from 01/04/[address] CHEST W CON from 01/04/2020 CR XR CHEST 2V from 01/13/2020 CR XR CHEST 2V from 01/16/2020 FINDINGS: Background of minor chronic interstitial changes are noted. Minor bibasal atelectasis. No lobar consolidation, pleural effusions or pneumothorax. Cardiac size and central pulmonary vasculature are within normal limits. Degenerative changes of the visualized thoracic spine are noted. IMPRESSION: Background of minor chronic interstitial changes. No lobar consolidation or pleural effusions. Dictated by: Lynette Foster 05/07/2021 16:44 Lynette Foster in [place] 05/07/2021 16:44
--- NOTE | 2021-05-07 16:21 | HMH.EDGENADL ---
ED Disposition Clinical Impression: Dyspnea Qualifiers: Dyspnea type: unspecified Qualified Code(s): R06.00 - Dyspnea, unspecified COPD (chronic obstructive pulmonary disease) Qualifiers: COPD type: COPD with acute exacerbation Qualified Code(s): J44.1 - Chronic obstructive pulmonary disease with (acute) exacerbation Disposition: Home, Self-Care Condition on Discharge: Fair Additional Instructions: You have been evaluated for shortness of breath. Possibly due to sleep apnea or COPD. Please take steroids and antibiotics for COPD exacerbation. Take double Lasix. Follow-up with your primary care doctor as soon as available, within the next 48 hours. Return to the emergency department at once for any new or worsening symptoms. Prescriptions: predniSONE [Prednisone 20mg Tab] 40 mg PO DAILY 5 Days #10 tab Transmission Status: Pending to [facility] Azithromycin [Z-Abdelrahman 250mg Tab] 250 mg PO DIRECTED #6 tab Transmission Status: Pending to [facility] Referrals: Provider,Referral, [Referring] - Time of Disposition: 18:44 - Critical Care Critical Care Time: No Attestation: On 05/07/21, the high probability of a clinically significant, sudden or life threatening deterioration of the following system(s) required my full and direct attention, intervention and personal management. The time I documented below is in addition to time spent performing reported procedures but includes the following listed in this critical care notation. Medical Decision Making - Medical Records Medical records reviewed: Yes: I reviewed the patient's medical records. - Taco Inquiry Pt receiving controlled substance: No Vital Signs: 05/07/21 16:03 05/07/21 17:11 Temperature 98.3 F Temperature Source Oral Pulse Rate 77 Pulse Rate [Right] 83 Respiratory Rate 19 Blood Pressure 113/61 Blood Pressure [Right Arm] 140/68 Blood Pressure Mean [Right Arm] 92 Blood Pressure Source Automatic Cuff Blood Pressure Position Sitting 02 Sat by Pulse Oximetry 95 95 Oxygen Delivery Method Room Air Room Air - Lab Data Lab Results 05/07/21 16:05: WBC 6.6, RBC 4.18 L, Hgb 13.0 L, Hct 37.3 L, MCV 89.2, MCH 31.1, MCHC 34.9, RDW 13.7, Plt Count 237, MPV 7.5, Neut % (Auto) 67.2, Lymph % (Auto) 23.5, [place] % (Auto) 5.3, Eos % (Auto) 3.1, Baso % (Auto) 0.9, Neut # (Auto) 4.4, Lymph # (Auto) 1.5, [place] # (Auto) 0.4, Eos # (Auto) 0.2, Baso # (Auto) 0.1 05/07/21 16:05: Sodium 141, Potassium 4.7, Chloride 106, Carbon Dioxide 22, Anion Gap 17.7 H, BUN 21 H, Creatinine 1.30 H, Estimated Creat Clear 90, Estimated GFR 55 L, Est GFR ( Amer) 67, Glucose 87, Calcium 9.7, Troponin I 0.01, NT-Pro-B Natriuret Pep 868 H 05/07/21 16:05: D-Dimer 0.40 05/07/21 16:26: VBG pH 7.34, VBG pCO2 36.7, VBG pO2 77.5 H, VBG HCO3 19.4 L, VBG Total CO2 20.5 L, VBG O2 Saturation 94.8 H, VBG Base Excess -6.4 L Result diagrams: 05/07/21 16:05 05/07/21 16:05 Orders (Tests/Meds): ED MEDICATIONS Discontinued Medications Generic Name Dose Route Start Last Admin Trade Name Freq PRN Reason Stop Dose Admin Aspirin 324 mg 05/07/21 16:07 05/07/21 16:24 Aspirin 81mg Chewable Tablet PO 05/07/21 16:08 324 mg ONCE ONE Administration Nitroglycerin 0.4 mg 05/07/21 16:07 Nitroglycerin 0.4mg Sl Tablet SL 05/08/21 16:07 Q5MINP PRN Chest Pain ORDERS Category Date Time Status Troponin I Q3H Lab 05/07/21 18:23 Received Troponin I Q3H Lab 05/07/21 22:15 Ordered - ECG Data Tracing #1 Sinus rhythm with ventricular rate of 83 bpm. QRS 80, QTc 404. Sinus arrhythmia. No ST segment elevation. - LORENZA Score for Non-Stemi Age of Patient: 60-69 years old Heart Rate: 70-89 bpm Systolic Blood Pressure: 140-159 mmHg Serum Creatinine: 0.80-1.19 mg/dl CHF [place] Class: I-No CHF Other Risk Factors: None Non-Stemi Risk Score: 98 Medical Decision Narrative: In summary this is a 65-year-old male with history
[2021-05-07 16:26] LABS: Basophils # 0.1 K/mm3 (0-0.2); Basophils % 0.9 % (0.1-2.0); Eosinophils # 0.2 K/mm3 (0.0-0.4); Eosinophils % 3.1 % (0.1-12.0); Hematocrit 37.3 % (42.0-52.0); Lymphocytes # 1.5 K/mm3 (0.7-4.5); Lymphocytes % 23.5 % (10-50); Mean Corpuscular HGB Conc 34.9 g/dL (31.8-35.4); Mean Corpuscular Hemoglobin 31.1 pg (27.0-31.2); Mean Corpuscular Volume 89.2 fl (80-94); Mean Platelet Volume 7.5 fl (7.4-10.4); Monocytes # 0.4 K/mm3 (0.1-1.0); Monocytes % 5.3 % (1.7-9.3); Neutrophils # 4.4 K/mm3 (1.8-7.8); Neutrophils % 67.2 % (37.0-80.0); Platelet Count 237 K/mm3 (142-424); Red Blood Count 4.18 M/mm3 (4.60-6.20); Red Cell Distribution Width 13.7 % (11.5-17.5); White Blood Count 6.6 K/mm3 (4.8-10.8)
[2021-05-07 16:34] LABS: Anion Gap 17.7 mEq/L (5-15); Blood Urea Nitrogen 21 mg/dl (9-20); Calcium 9.7 mg/dl (8.4-10.2); Carbon Dioxide 22 mmol/L (22.0-30.0); Chloride 106 mmol/L (98-107); Creatinine Clearance Estimated 90 mL/min (50-200); Estimated Glomerular Filt Rate 55 ml/min (>60); GFR (African American) 67 ML/MIN (>60); Glucose 87 mg/dl (74-100); Potassium 4.7 mmoL/L (3.5-5.1); Sodium 141 mmol/L (136-145)
[2021-05-07 16:48] LABS: NT Pro Brain Natriuretic Pep. 868 pg/mL (0-125)
[2021-05-07 16:49] LABS: VBG Base Excess -6.4 mmol/L (-2.4-2.3); VBG HCO3 19.4 mmol/L (23-30); VBG Oxygen Saturation 94.8 % (50-70); VBG PCO2 36.7 mmol/L (35-51); VBG PH 7.34 mmol/L (7.31-7.41); VBG PO2 77.5 mmol/L (28-40); VBG Total CO2 20.5 mmol/L (23-27)
[2021-05-07 16:52] LABS: Troponin I 0.01 ng/ml (0.00-0.034)
[2021-05-07 17:11] VITALS: BP 113/61; PULSE 77; O2SAT 95
--- NOTE | 2021-05-07 18:05 | PC.NURSE ---
dr ying states that she would like a 2 hr troponin on patient. I called lab to let them know to draw 2nd trop around 1810.
--- NOTE | 2021-05-07 18:29 | PC.NURSE ---
DR RAI REQUEST 2 HOUR [facility] HERE TO DRAW
[2021-05-07 18:55] LABS: Troponin I < 0.01 ng/ml (0.00-0.034)
[2021-05-07 19:08] VITALS: BP 129/77; PULSE 73; RESP 18; TEMP 36.8; O2SAT 98
== END 2021-05-07 19:10 | disposition home or self-care (01) ==
PROVIDERS: Emergency Provider Emergency Medicine; PCP Emergency Medicine
DX: J44.1 Chronic obstructive pulmonary disease with (acute) exacerbation (principal); E11.9 Type 2 diabetes mellitus without complications; K21.9 Gastro-esophageal reflux disease without esophagitis; E78.5 Hyperlipidemia, unspecified; I10 Essential (primary) hypertension; Z79.899 Other long term (current) drug therapy; Z87.891 Personal history of nicotine dependence
CPT/HCPCS: 36415; 71046; 80048; 82803; 83880; 84484; 85025; 85378; 93005; 99284

== ENCOUNTER → 2021-05-14 09:38 | Outpatient (CLI) | payer MEDICARE, SELFPAY ==
[2021-05-14 10:31] LABS: Basophils % 0.5 % (0.1-2.0); Eosinophils # 0.3 K/mm3 (0.0-0.4); Eosinophils % 2.9 % (0.1-12.0); Hematocrit 39.6 % (42.0-52.0); Hemoglobin 12.9 g/dL (14.1-18.0); Lymphocytes # 1.7 K/mm3 (0.7-4.5); Lymphocytes % 19.2 % (10-50); Mean Corpuscular HGB Conc 32.6 g/dL (31.8-35.4); Mean Corpuscular Volume 92.2 fl (80-94); Mean Platelet Volume 7.5 fl (7.4-10.4); Monocytes # 0.6 K/mm3 (0.1-1.0); Monocytes % 6.4 % (1.7-9.3); Neutrophils # 6.2 K/mm3 (1.8-7.8); Platelet Count 236 K/mm3 (142-424); White Blood Count 8.8 K/mm3 (4.8-10.8)
[2021-05-14 11:04] LABS: Chloride 102 mmol/L (98-107); Potassium 4.8 mmoL/L (3.5-5.1); Sodium 140 mmol/L (136-145)
[2021-05-14 11:07] LABS: Blood Urea Nitrogen 19 mg/dl (9-20); Estimated Glomerular Filt Rate 61 ml/min (>60); GFR (African American) 73 ML/MIN (>60)
[2021-05-14 11:08] LABS: Anion Gap 13.8 mEq/L (5-15); Calcium 8.8 mg/dl (8.4-10.2); Carbon Dioxide 29 mmol/L (22.0-30.0); Glucose 83 mg/dl (74-100)
== END ==
PROVIDERS: Visit Provider Physician Assistant
DX: R55 Syncope and collapse (principal); Z01.812 Encounter for preprocedural laboratory examination; Z20.822 Contact with and (suspected) exposure to COVID-19
CPT/HCPCS: 36415; 80048; 85025; U0003

== ENCOUNTER 2021-05-15 10:36 | Day surgery (SDC) | payer MEDICARE, SELFPAY ==
[2021-05-15] VITALS (13 sets, daily range): BP systolic 92–155; BP diastolic 44–86; PULSE 65–77; RESP 16–18; TEMP 36.7; O2SAT 93–99; BMI 38.0
--- NOTE | 2021-05-15 | IR_ITS ---
APPROVED REPORT Patient Location: Outpatient PROCEDURES Left heart catheterization Left ventriculogram Selective coronary angiogram INDICATION Known multivessel coronary disease, Accelerated angina pectoris, Syncope, Informed consent was obtained prior to the procedure. COMPLICATIONS NONE Estimated Blood Loss: LESS THAN 10 ML TECHNIQUE One percent lidocaine used to anesthetize the right anterior aspect of the wrist. The right radial artery was accessed via the Seldinger technique. A 6 [place] sheath was placed in the right radial artery. 2.5 mg of verapamil, 800 mcg of nitroglycerin, 1mg Lidocaine and 5000 U Heparin were given through the arterial sheath. The trap catheter was also used to perform left heart catheterization, left ventriculogram and selective coronary angiogram. At the end of the procedure the sheath was removed good hemostasis was achieved using Traclet band, patient was transferred to the postop holding area in stable condition. ANGIOGRAPHIC RESULTS The left main artery Normal The left anterior descending artery Has a stent in the proximal through mid segment with all aspects of the stent being widely patent free of in-stent restenosis with excellent proximal distal transitioning. The remaining LAD has mild atheromatous plaque with a 40% mid LAD myocardial bridge. The circumflex artery Is a dominant vessel and has proximal 10 to 20% stenosis with mid vessel 20% stenoses. The right coronary artery Vestigial normal The HU ventriculogram reveals Normal 65% The left ventricular end-diastolic pressure Moderately elevated at 25 mmHg IMPRESSION Widely patent coronary arteries as described above Normal ejection fraction Moderately elevated LVEDP which is the likely etiology for patient's angina PLAN 1. Treatment of diastolic dysfunction 2. Medical management for coronary disease 3. Consideration of loop recorder for syncope Electronically signed by : Dez Toscano, 05/15/2021 13:40:23
== END 2021-05-15 16:19 | disposition home or self-care (01) ==
LOC: CATHLAB 10:37
PROVIDERS: PCP Emergency Medicine; Visit Provider Internal Medicine
DX: I25.118 Atherosclerotic heart disease of native coronary artery with other forms of angina pectoris (principal); R55 Syncope and collapse; E11.9 Type 2 diabetes mellitus without complications; Z79.84 Long term (current) use of oral hypoglycemic drugs; Z95.5 Presence of coronary angioplasty implant and graft; I11.0 Hypertensive heart disease with heart failure; I50.9 Heart failure, unspecified; I65.23 Occlusion and stenosis of bilateral carotid arteries
CPT/HCPCS: 93458; 99152; C1725; C1769; J1644; Q9967

== ENCOUNTER → 2021-05-27 09:22 | Outpatient (CLI) | payer MEDICARE, SELFPAY ==
[2021-05-27 09:47] LABS: Basophils # 0.1 K/mm3 (0-0.2); Basophils % 0.8 % (0.1-2.0); Eosinophils # 0.2 K/mm3 (0.0-0.4); Eosinophils % 2.9 % (0.1-12.0); Hematocrit 38.9 % (42.0-52.0); Hemoglobin 13.4 g/dL (14.1-18.0); Lymphocytes # 1.7 K/mm3 (0.7-4.5); Lymphocytes % 23.5 % (10-50); Mean Corpuscular HGB Conc 34.4 g/dL (31.8-35.4); Mean Corpuscular Hemoglobin 30.7 pg (27.0-31.2); Mean Corpuscular Volume 89.4 fl (80-94); Monocytes # 0.4 K/mm3 (0.1-1.0); Monocytes % 6.1 % (1.7-9.3); Neutrophils # 4.8 K/mm3 (1.8-7.8); Neutrophils % 66.8 % (37.0-80.0); Platelet Count 240 K/mm3 (142-424); Red Blood Count 4.35 M/mm3 (4.60-6.20); White Blood Count 7.1 K/mm3 (4.8-10.8)
[2021-05-27 10:24] LABS: Chloride 100 mmol/L (98-107); Potassium 4.2 mmoL/L (3.5-5.1); Sodium 140 mmol/L (136-145)
[2021-05-27 10:27] LABS: Anion Gap 12.2 mEq/L (5-15); Blood Urea Nitrogen 12 mg/dl (9-20); Calcium 8.9 mg/dl (8.4-10.2); Carbon Dioxide 32 mmol/L (22.0-30.0); Estimated Glomerular Filt Rate 84 ml/min (>60); GFR (African American) 102 ML/MIN (>60); Glucose 139 mg/dl (74-100)
== END ==
PROVIDERS: Visit Provider Physician Assistant
DX: E78.5 Hyperlipidemia, unspecified (principal); I25.10 Atherosclerotic heart disease of native coronary artery without angina pectoris; I50.9 Heart failure, unspecified; I77.9 Disorder of arteries and arterioles, unspecified; R06.00 Dyspnea, unspecified; R55 Syncope and collapse; Z95.5 Presence of coronary angioplasty implant and graft; I11.0 Hypertensive heart disease with heart failure
CPT/HCPCS: 36415; 80048; 85025

== ENCOUNTER → 2021-06-05 12:30 | Outpatient (CLI) | payer MEDICARE, SELFPAY ==
[2021-06-05 13:30] VITALS: PULSE 54; PULSE 62
== END ==
PROVIDERS: PCP Emergency Medicine; Visit Provider Emergency Medicine
DX: J44.9 Chronic obstructive pulmonary disease, unspecified (principal)
CPT/HCPCS: 94060; 94618; 94640; 94727; 94729

== ENCOUNTER → 2021-07-08 13:43 | Outpatient (CLI) | payer MEDICARE, SELFPAY ==
[2021-07-08 15:38] LABS: Amphetamine/Metha Screen,Urine Negative ng/ml (<1000)
[2021-07-08 15:39] LABS: Barbiturates Screen,Urine Negative ng/ml (<200)
[2021-07-08 15:40] LABS: Benzodiazepines Screen,Urine Negative ng/ml (<200); Cannabinoid Screen,Urine Negative ng/ml (<50)
[2021-07-08 15:41] LABS: Cocaine Screen,Urine Negative ng/ml (<300)
[2021-07-08 15:42] LABS: Methadone Screen,Urine Negative ng/ml (<300); Opiate Screen,Urine Negative ng/ml (<300)
[2021-07-08 15:48] LABS: Phencyclidine Screen,Urine Negative ng/ml (<25)
== END ==
PROVIDERS: Visit Provider Emergency Medicine
DX: Z79.899 Other long term (current) drug therapy (principal)
CPT/HCPCS: 80305

== ENCOUNTER → 2021-07-18 09:46 | Outpatient (CLI) | payer MEDICARE, SELFPAY ==
--- NOTE | 2021-07-18 09:47 | CA_ITS ---
APPROVED REPORT EXAM: Comprehensive 2D, Doppler, and color-flow Echocardiogram Pastry Finisher: Yolie Padilla RVT Ht: 5 ft 8 in Wt: 251lbs BSA: 2.25 BP: 140/73 mmHg Indications: SOA,CAD,STENT,HTN,HLD,CHF 2D Dimensions LVOT 2.21 cm (M/F) 1.5-2.5 LA Volume 18.20 mL LA Volume Index 8.08 mL/m2 (M/F) 16-34 M-Mode Dimensions RVDd 2.82 cm (0.9-2.6) LA Diam 3.41 cm (1.9-4.0) LVDd 4.59 cm (3.5-5.7) Ao Diam 3.77 cm (2.0-3.7) LVDs 3.18 cm (3.5-5.7) IVSd 0.68 cm (0.6-1.1) PWd 0.81 cm (0.6-1.1) EF (Teich) 58.40% FS 30.70% EDV (Teich) 96.80 mL TAPSE 2.26 (<1.7) ESV (Teich) 40.30 mL LV Diastology E Decel Time 240.00 (160-240 msec) E/A Ratio 0.6 MED E' 4.90 (< 7 cm/sec) E'/MED E' Ratio 10.12 (>14) LAT E' 7.00 (<10 cm/sec) E/LAT E' Ratio 7.09 (>14) Aortic Valve AO Peak GR. 4.10 mmHg Mitral Valve MV E Max Jag. 50.00 (40-130 cm/s) MV A Velocity 77.00 (40-130 cm/s) E/A Ratio 0.64 MV Decel. Time 240.00 (160-240 ms) MV PHT 70.00 ms Pulmonary Valve PV Peak Velocity 73.00 (50-150 cm/s) Left Ventricle Left atrium is mildly enlarged, left ventricle is normal size, mild concentric left ventricular hypertrophy, visually estimated ejection fraction 55% with no regional wall motion abnormality, grade 1 diastolic dysfunction seen without tissue Doppler evidence of raise left atrial pressure. Right Ventricle Right atrium and right ventricle are mildly enlarged with normal contractility. Aortic Valve Aortic valve is minimally thickened and fibrosed, there is no aortic stenosis or aortic insufficiency. Mitral Valve Mitral valve is grossly normal, there is trace mitral regurgitation Tricuspid Valve Tricuspid valve grossly normal, there is trace tricuspid regurgitation, tricuspid regurgitation jet velocity is inadequate for calculation of the right ventricular systolic pressure. Pulmonic Valve Pulmonic valve is poorly visualized. Great Vessels Aortic root is normal size. Inferior vena cava is normal size with normal inspiratory collapse. Pericardium No significant pericardial effusion noted. There is anterior echo-free space seen. Conclusion 1. Mild biatrial enlargement, normal left ventricular size, mild concentric left ventricular hypertrophy, visually estimated ejection fraction 55% with no regional wall motion abnormality, grade 1 diastolic dysfunction seen without tissue Doppler evidence of raise left atrial pressure. 2. Mildly enlarged right ventricle with normal contractility. 3. Trace mitral and tricuspid regurgitation. 4. No significant pericardial effusion noted, there is anterior echo-free space seen. 5. Inferior vena cava is normal size with normal inspiratory collapse. Electronically signed by : Navneet Castillo MD 07/18/2021 16:04:33
== END ==
PROVIDERS: PCP Emergency Medicine; Visit Provider Urology
DX: E78.5 Hyperlipidemia, unspecified (principal); I25.10 Atherosclerotic heart disease of native coronary artery without angina pectoris; I50.9 Heart failure, unspecified; I77.9 Disorder of arteries and arterioles, unspecified; R06.00 Dyspnea, unspecified; Z95.5 Presence of coronary angioplasty implant and graft; I11.0 Hypertensive heart disease with heart failure; Z87.891 Personal history of nicotine dependence
CPT/HCPCS: 93306

== ENCOUNTER → 2021-09-06 13:22 | Outpatient (CLI) | payer MEDICARE, SELFPAY ==
[2021-09-06 21:24] LABS: Amphetamine/Metha Screen,Urine Negative ng/ml (<1000)
[2021-09-06 21:25] LABS: Barbiturates Screen,Urine Negative ng/ml (<200); Benzodiazepines Screen,Urine Negative ng/ml (<200)
[2021-09-06 21:26] LABS: Cannabinoid Screen,Urine Negative ng/ml (<50)
[2021-09-06 21:27] LABS: Cocaine Screen,Urine Negative ng/ml (<300); Methadone Screen,Urine Negative ng/ml (<300)
[2021-09-06 21:28] LABS: Opiate Screen,Urine Negative ng/ml (<300)
[2021-09-06 21:29] LABS: Phencyclidine Screen,Urine Negative ng/ml (<25)
== END ==
PROVIDERS: Visit Provider Emergency Medicine
DX: Z79.899 Other long term (current) drug therapy (principal)
CPT/HCPCS: 80305

== ENCOUNTER → 2021-11-11 15:43 | Outpatient (CLI) | payer MEDICARE, SELFPAY ==
[2021-11-11 17:37] LABS: Amphetamine/Metha Screen,Urine Negative ng/ml (<1000)
[2021-11-11 17:38] LABS: Barbiturates Screen,Urine Negative ng/ml (<200)
[2021-11-11 17:39] LABS: Benzodiazepines Screen,Urine Negative ng/ml (<200)
[2021-11-11 17:40] LABS: Cannabinoid Screen,Urine Negative ng/ml (<50); Cocaine Screen,Urine Negative ng/ml (<300)
[2021-11-11 17:41] LABS: Methadone Screen,Urine Negative ng/ml (<300)
[2021-11-11 17:42] LABS: Opiate Screen,Urine Negative ng/ml (<300); Phencyclidine Screen,Urine Negative ng/ml (<25)
== END ==
PROVIDERS: Visit Provider Emergency Medicine
DX: Z79.899 Other long term (current) drug therapy (principal)
CPT/HCPCS: 80305

== ENCOUNTER → 2021-11-21 07:37 | Outpatient (CLI) | payer MEDICARE, SELFPAY ==
--- NOTE | 2021-11-21 07:37 | US_ITS ---
FINAL REPORT CLINICAL HISTORY: abdominal pain COMPARISON: 01/17/2020 FINDINGS: RIGHT UPPER QUADRANT ULTRASOUND: Ultrasound images of right upper quadrant were obtained. Limited images of the pancreas are obscured by bowel gas. The liver parenchyma is normal echogenicity. There is sludge in the gallbladder. No stones are identified. There is borderline gallbladder wall thickening measuring 4 mm. The common duct measures 3 mm. There is right renal cortical thinning. IMPRESSION: Sludge in the gallbladder with borderline gallbladder wall thickening. Reviewed, Interpreted and Dictated by Giles Kaufman III, MD Transcribed by Izabela Garcia Authenticated by Giles Kaufman III, MD on 11/21/2021 12:12:57 PM [facility]
== END ==
PROVIDERS: PCP Emergency Medicine; Visit Provider Emergency Medicine
DX: R10.9 Unspecified abdominal pain (principal)
CPT/HCPCS: 76705

== ENCOUNTER 2021-12-09 06:58 | Emergency (ER) | payer MEDICARE, SELFPAY ==
[2021-12-09] VITALS (7 sets, daily range): BP systolic 114–137; BP diastolic 72–85; PULSE 65–84; RESP 14–18; TEMP 36.6–37.1; O2SAT 96–98; BMI 36.0
--- NOTE | 2021-12-09 07:05 | ECG_ITS ---
APPROVED REPORT Exam: Resting ECG HR:74 bpm ECG Measurements Heart Rate 74 AXES [place] 143 P 52 QRSd 84 QRS -7 QT 373 T 16 QTc 400 Conclusion SINUS RHYTHM NORMAL ECG UNCONFIRMED REPORT Electronically signed by : Malcolm Rodriguez MD 12/10/2021 13:51:17
--- NOTE | 2021-12-09 07:08 | XR_ITS ---
FINAL REPORT CLINICAL HISTORY: chest pain COMPARISON: 03/27/2020 FINDINGS: 2 views of the chest were obtained . The heart is normal in size. The mediastinum is within normal limits. The lungs are clear. There is no pneumothorax. Osseous structures are unremarkable. IMPRESSION: No acute cardiopulmonary process. Reviewed, Interpreted and Dictated by Nic Mancera MD Transcribed by Summer Boston Authenticated by Nic Mancera MD on 12/09/2021 08:21:01 AM [facility]
[2021-12-09 07:25] LABS: Basophils % 0.5 % (0.1-2.0); Eosinophils # 0.1 K/mm3 (0.0-0.4); Eosinophils % 1.8 % (0.1-12.0); Hematocrit 43.7 % (42.0-52.0); Hemoglobin 15.3 g/dL (14.1-18.0); Lymphocytes # 1.5 K/mm3 (0.7-4.5); Lymphocytes % 20.8 % (10-50); Mean Corpuscular Hemoglobin 31.8 pg (27.0-31.2); Mean Corpuscular Volume 90.8 fl (80-94); Mean Platelet Volume 7.4 fl (7.4-10.4); Monocytes # 0.3 K/mm3 (0.1-1.0); Monocytes % 4.5 % (1.7-9.3); Neutrophils # 5.2 K/mm3 (1.8-7.8); Neutrophils % 72.4 % (37.0-80.0); Platelet Count 262 K/mm3 (142-424); Red Blood Count 4.81 M/mm3 (4.60-6.20); White Blood Count 7.2 K/mm3 (4.8-10.8)
--- NOTE | 2021-12-09 07:28 | HMH.EDCP ---
ED Disposition Clinical Impression: Chest pain Qualifiers: Chest pain type: precordial pain Qualified Code(s): R07.2 - Precordial pain Disposition: Home, Self-Care Condition on Discharge: Good Instructions: DI for Atypical Chest Pain Additional Instructions: see pcp for follow up Referrals: Kaveh Ryan MD [Primary Care Provider] - - Critical Care Critical Care Time: No Attestation: On 12/09/21, the high probability of a clinically significant, sudden or life threatening deterioration of the following system(s) required my full and direct attention, intervention and personal management. The time I documented below is in addition to time spent performing reported procedures but includes the following listed in this critical care notation. Medical Decision Making - Medical Records Medical records reviewed: Yes: I reviewed the patient's medical records. - Taco Inquiry Pt receiving controlled substance: No Vital Signs: 12/09/21 07:00 12/09/21 07:29 12/09/21 07:32 Temperature 98.7 F Temperature Source Oral Pulse Rate 84 Pulse Rate [Orthostatic Lying] 68 Pulse Rate [Orthostatic Standing] 77 Pulse Rate [Radial] 76 Respiratory Rate 18 16 Blood Pressure 137/72 Blood Pressure [Orthostatic Lying] 137/72 Blood Pressure [Orthostatic Standing] 114/72 Blood Pressure [Right Arm] 127/85 Blood Pressure Mean 84 Blood Pressure Mean [Right Arm] 99 Blood Pressure Position [Right Arm] Sitting 02 Sat by Pulse Oximetry 98 97 Oxygen Delivery Method Room Air 12/09/21 08:00 12/09/21 08:30 12/09/21 09:00 Temperature Temperature Source Pulse Rate 66 72 65 Pulse Rate [Orthostatic Lying] Pulse Rate [Orthostatic Standing] Pulse Rate [Radial] Respiratory Rate 18 16 14 Blood Pressure 126/79 122/76 126/75 Blood Pressure [Orthostatic Lying] Blood Pressure [Orthostatic Standing] Blood Pressure [Right Arm] Blood Pressure Mean 88 84 93 Blood Pressure Mean [Right Arm] Blood Pressure Position [Right Arm] 02 Sat by Pulse Oximetry 96 97 97 Oxygen Delivery Method 12/09/21 09:16 Temperature 98 F Temperature Source Oral Pulse Rate 71 Pulse Rate [Orthostatic Lying] Pulse Rate [Orthostatic Standing] Pulse Rate [Radial] Respiratory Rate 16 Blood Pressure 122/73 Blood Pressure [Orthostatic Lying] Blood Pressure [Orthostatic Standing] Blood Pressure [Right Arm] Blood Pressure Mean Blood Pressure Mean [Right Arm] Blood Pressure Position [Right Arm] 02 Sat by Pulse Oximetry Oxygen Delivery Method Room Air - Lab Data Lab results reviewed: Yes: I reviewed the patient's lab results. Lab Results 12/09/21 07:12: WBC 7.2, RBC 4.81, Hgb 15.3, Hct 43.7, MCV 90.8, MCH 31.8 H, MCHC 35.0, RDW 13.0, Plt Count 262, MPV 7.4, Neut % (Auto) 72.4, Lymph % (Auto) 20.8, [place] % (Auto) 4.5, Eos % (Auto) 1.8, Baso % (Auto) 0.5, Neut # (Auto) 5.2, Lymph # (Auto) 1.5, [place] # (Auto) 0.3, Eos # (Auto) 0.1, Baso # (Auto) 0.0 12/09/21 07:12: Sodium 135 L, Potassium 3.8, Chloride 97 L, Carbon Dioxide 32 H, Anion Gap 9.8, BUN 13, Creatinine 0.90, Estimated Creat Clear 106, Estimated GFR 84, Est GFR ( Amer) 102, Glucose 135 H, Calcium 8.4, Troponin I < 0.01 12/09/21 07:12: Lipase 48 Result diagrams: 12/09/21 07:12 12/09/21 07:12 Orders (Tests/Meds): ED MEDICATIONS Generic Name Dose Route Start Last Admin Trade Name Freq PRN Reason Stop Dose Admin Sodium Chloride 8 ml 12/09/21 07:55 12/09/21 08:03 Sodium Chloride 0.9% 10ml Vial IV 01/08/22 07:54 8 ml NEEDED PRN Administration dilute pepcid Discontinued Medications Generic Name Dose Route Start Last Admin Trade Name Freq PRN Reason Stop Dose Admin Aspirin 324 mg 12/09/21 07:12 12/09/21 07:15 Aspirin 81mg Chewable Tablet PO 12/09/21 07:13 324 mg ONCE ONE Administration Famotidine 20 mg 12/09/21 07:55 12/09/21 08:02 Famotidine 20mg/2ml Vial IV 12/09/21 07:56 20 mg
[2021-12-09 07:33] LABS: Chloride 97 mmol/L (98-107); Sodium 135 mmol/L (136-145)
[2021-12-09 07:34] LABS: Potassium 3.8 mmoL/L (3.5-5.1)
[2021-12-09 07:36] LABS: Blood Urea Nitrogen 13 mg/dl (9-20); Creatinine Clearance Estimated 106 mL/min (50-200); Estimated Glomerular Filt Rate 84 ml/min (>60); GFR (African American) 102 ML/MIN (>60); Lipase 48 U/L (23-300)
[2021-12-09 07:37] LABS: Anion Gap 9.8 mEq/L (5-15); Calcium 8.4 mg/dl (8.4-10.2); Carbon Dioxide 32 mmol/L (22.0-30.0); Glucose 135 mg/dl (74-100)
[2021-12-09 07:49] LABS: Troponin I < 0.01 ng/ml (0.00-0.034)
== END 2021-12-09 09:18 | disposition home or self-care (01) ==
PROVIDERS: Emergency Provider Emergency Medicine; PCP Emergency Medicine
DX: R07.2 Precordial pain (principal); R11.0 Nausea; I25.10 Atherosclerotic heart disease of native coronary artery without angina pectoris; E11.9 Type 2 diabetes mellitus without complications; I10 Essential (primary) hypertension; E78.5 Hyperlipidemia, unspecified; K21.9 Gastro-esophageal reflux disease without esophagitis
CPT/HCPCS: 71046; 80048; 83690; 84484; 85025; 93005; 96365; 96375; 99283

== ENCOUNTER → 2021-12-16 10:10 | Outpatient (CLI) | payer MEDICARE, SELFPAY ==
--- NOTE | 2021-12-16 10:11 | NM_ITS ---
FINAL REPORT TECHNIQUE: The patient was injected with 8.1 mCi of technetium 99m Choletec and subsequently ingested 8 oz of Ensure. Images of the abdomen were obtained for one hour. CLINICAL HISTORY: abn u/s 10:50am 8.11 MCI TC CHOLETEC 12:00PM ENSURE NO PAIN AFTER DRINKING ENSURE FINDINGS: Hepatic uptake is normal. There is bile duct and small bowel activity at 5 minutes. There is gallbladder activity at 10 minutes. Post Ensure images render an ejection fraction of 89 %. Patient has no pain or symptoms after ingestion of Ensure. IMPRESSION: Normal hepatobiliary scan. Normal ejection fraction. Reviewed, Interpreted and Dictated by Giles Kaufman III, MD Transcribed by JAMILA Donahue Authenticated by Giles Kaufman III, MD on 12/16/2021 02:42:[address] [facility]
== END ==
PROVIDERS: PCP Emergency Medicine; Visit Provider Emergency Medicine
DX: R07.2 Precordial pain (principal)
CPT/HCPCS: 78226; A9537

== ENCOUNTER 2022-01-03 12:45 | Emergency (ER) | payer MEDICARE, SELFPAY ==
[2022-01-03] VITALS (11 sets, daily range): BP systolic 109–142; BP diastolic 64–78; PULSE 70–83; RESP 13–18; TEMP 36.7–37.8; O2SAT 93–99; BMI 39.5
--- NOTE | 2022-01-03 12:58 | ECG_ITS ---
APPROVED REPORT Exam: Resting ECG HR:83 bpm ECG Measurements Heart Rate 83 AXES AR 140 P 37 QRSd 84 QRS 1 QT 347 T 9 QTc 387 Conclusion SINUS RHYTHM NORMAL ECG UNCONFIRMED REPORT Electronically signed by : Malcolm Rodriguez MD 01/04/2022 12:27:57
[2022-01-03 13:00] LABS: POC Glucose,Bedside 90 (70-110)
--- NOTE | 2022-01-03 13:02 | XR_ITS ---
FINAL REPORT CLINICAL HISTORY: cough, fever COMPARISON: December 09, 2021 FINDINGS: A single portable view of the chest was obtained. The heart size and pulmonary vascularity are within normal limits. The mediastinum is within normal limits. There are mild bibasilar opacities. The bony thorax is intact. IMPRESSION: Mild bibasilar opacities, atelectasis or pneumonia. Reviewed, Interpreted and Dictated by Giles Kaufman III, MD Transcribed by Aryan Arndt Authenticated by Giles Kaufman III, MD on 01/03/2022 02:11:[address] [facility]
--- NOTE | 2022-01-03 13:04 | PC.NURSE ---
Notified rad of CXR
--- NOTE | 2022-01-03 13:13 | CT_ITS ---
FINAL REPORT CLINICAL HISTORY: Confused, more altered COMPARISON: June 08, 2019 FINDINGS: Axial images of the head were obtained without contrast. Coronal reformatted images were also obtained.This study was performed with techniques to keep radiation doses as low as reasonably achievable (ALARA). Individualized dose reduction techniques using automated exposure control or adjustment of mA and/or kV according to the patient's size were employed. There is no evidence of intracranial hemorrhage or mass. The ventricular size is within normal limits. There is no evidence of shift of the midline structures. No abnormal extra axial fluid collection is identified. No skull abnormality is seen on the bone window images. There is mucosal thickening of the maxillary sinuses. IMPRESSION: No acute intracranial abnormality. Reviewed, Interpreted and Dictated by Giles Kaufman III, MD Transcribed by Aryan Arndt Authenticated by Giles Kaufman III, MD on 01/03/2022 02:11:54 PM [facility]
--- NOTE | 2022-01-03 13:14 | HMH.EDGENADL ---
ED Disposition Clinical Impression: Acute renal failure Qualifiers: Acute renal failure type: unspecified Qualified Code(s): N17.9 - Acute kidney failure, unspecified Disposition: Xfer Critical Access Hosp Condition on Discharge: Fair Referrals: Kaveh Ryan MD [Primary Care Provider] - - Critical Care Critical Care Time: Yes Attestation: On 01/03/22, the high probability of a clinically significant, sudden or life threatening deterioration of the following system(s) required my full and direct attention, intervention and personal management. The time I documented below is in addition to time spent performing reported procedures but includes the following listed in this critical care notation. Total Critical Care Time: 30 Vital system(s) involved:: Renal Failure My critical care processes included: Assessment & monitoring of V/S, Initial and Re-exams, Data Review/Interpretation, Coordinating Care, Medication Orders and management, Documentation Medical Decision Making - Medical Records Medical records reviewed: Yes: I reviewed the patient's medical records. - Taco Inquiry Pt receiving controlled substance: No Vital Signs: 01/03/22 12:46 01/03/22 13:01 01/03/22 14:00 Temperature 100.1 F H Temperature Source Oral Pulse Rate 70 82 Pulse Rate [Right Radial] 83 Respiratory Rate 15 13 13 Blood Pressure 112/68 124/67 Blood Pressure [Right Arm] 121/74 Blood Pressure Mean 86 80 Blood Pressure Mean [Right Arm] 89 Blood Pressure Source [Right Arm] Automatic Cuff Blood Pressure Position [Right Arm] Sitting 02 Sat by Pulse Oximetry 93 L 95 95 Oxygen Delivery Method Room Air 01/03/22 14:31 01/03/22 15:00 01/03/22 15:31 Temperature Temperature Source Pulse Rate 82 81 77 Pulse Rate [Right Radial] Respiratory Rate 15 14 15 Blood Pressure 109/70 L 125/71 110/64 Blood Pressure [Right Arm] Blood Pressure Mean 78 88 79 Blood Pressure Mean [Right Arm] Blood Pressure Source [Right Arm] Blood Pressure Position [Right Arm] 02 Sat by Pulse Oximetry 97 97 95 Oxygen Delivery Method 01/03/22 16:31 01/03/22 17:01 01/03/22 17:30 Temperature Temperature Source Pulse Rate 79 78 81 Pulse Rate [Right Radial] Respiratory Rate 15 16 16 Blood Pressure 119/74 142/71 H 139/78 Blood Pressure [Right Arm] Blood Pressure Mean 82 91 98 Blood Pressure Mean [Right Arm] Blood Pressure Source [Right Arm] Blood Pressure Position [Right Arm] 02 Sat by Pulse Oximetry 95 95 96 Oxygen Delivery Method 01/03/22 18:00 Temperature Temperature Source Pulse Rate 83 Pulse Rate [Right Radial] Respiratory Rate 15 Blood Pressure 135/71 Blood Pressure [Right Arm] Blood Pressure Mean 101 Blood Pressure Mean [Right Arm] Blood Pressure Source [Right Arm] Blood Pressure Position [Right Arm] 02 Sat by Pulse Oximetry 96 Oxygen Delivery Method - Lab Data Lab results reviewed: Yes: I reviewed the patient's lab results. Lab Results 01/03/22 12:49: POC Glucose 90 01/03/22 12:51: WBC 9.8, RBC 3.79 L, Hgb 11.7 L, Hct 35.9 L, MCV 94.6 H, MCH 30.7, MCHC 32.5, RDW 13.5, Plt Count 266, MPV 8.6, Neut % (Auto) 79.5, Lymph % (Auto) 9.1 L, [place] % (Auto) 5.8, Eos % (Auto) 5.0, Baso % (Auto) 0.6, Neut # (Auto) 7.8, Lymph # (Auto) 0.9, [place] # (Auto) 0.6, Eos # (Auto) 0.5 H, Baso # (Auto) 0.1 01/03/22 12:51: Sodium 140, Potassium 4.5, Chloride 105, Carbon Dioxide 17 L, Anion Gap 22.5 H, BUN 85 H, Creatinine 11.30 H, Estimated Creat Clear 11, Estimated GFR 5 L*, Est GFR ( Amer) 5 L*, Glucose 90, Calcium 7.0 L, Total Bilirubin 0.6, AST 32, ALT 16, Alkaline Phosphatase 55, Troponin I < 0.01, Total Protein 7.2, Albumin 4.1, Globulin 3.1, Albumin/Globulin Ratio 1.3 01/03/22 12:51: TSH 0.74, Thyroxine (T4) 4.9 L 01/03/22 12:51: Magnesium 1.4 L 01/03/22 17:25: Urine Color Yellow, Urine Appearance Clear, Urine pH 6.0, Ur Specific [place] >= 1.030, Urine Protein 1+, Urine Glucose (UA) Ne
[2022-01-03 13:19] LABS: Chloride 105 mmol/L (98-107)
[2022-01-03 13:20] LABS: Basophils # 0.1 K/mm3 (0-0.2); Basophils % 0.6 % (0.1-2.0); Eosinophils # 0.5 K/mm3 (0.0-0.4); Hematocrit 35.9 % (42.0-52.0); Hemoglobin 11.7 g/dL (14.1-18.0); Lymphocytes # 0.9 K/mm3 (0.7-4.5); Lymphocytes % 9.1 % (10-50); Mean Corpuscular HGB Conc 32.5 g/dL (31.8-35.4); Mean Corpuscular Hemoglobin 30.7 pg (27.0-31.2); Mean Corpuscular Volume 94.6 fl (80-94); Mean Platelet Volume 8.6 fl (7.4-10.4); Monocytes # 0.6 K/mm3 (0.1-1.0); Monocytes % 5.8 % (1.7-9.3); Neutrophils # 7.8 K/mm3 (1.8-7.8); Neutrophils % 79.5 % (37.0-80.0); Platelet Count 266 K/mm3 (142-424); Potassium 4.5 mmoL/L (3.5-5.1); Red Blood Count 3.79 M/mm3 (4.60-6.20); Red Cell Distribution Width 13.5 % (11.5-17.5); Sodium 140 mmol/L (136-145); White Blood Count 9.8 K/mm3 (4.8-10.8)
[2022-01-03 13:22] LABS: Alanine Aminotransferase 16 U/L (12-78); Aspartate Amino Transferase 32 U/L (17-59); Creatinine Clearance Estimated 11 mL/min (50-200); Estimated Glomerular Filt Rate 5 ml/min (>60); GFR (African American) 5 ML/MIN (>60)
[2022-01-03 13:23] LABS: Albumin Level 4.1 g/dl (3.5-5.0); Albumin/Globulin Ratio 1.3 (1.1-1.8); Alkaline Phosphatase 55 U/L (38-126); Anion Gap 22.5 mEq/L (5-15); Bilirubin,Total 0.6 mg/dl (0.2-1.3); Carbon Dioxide 17 mmol/L (22.0-30.0); Globulin 3.1 g/dL (1.3-3.2); Glucose 90 mg/dl (74-100); Total Protein,Serum 7.2 g/dl (6.3-8.2)
[2022-01-03 13:27] LABS: Blood Urea Nitrogen 85 mg/dl (9-20)
[2022-01-03 13:35] LABS: Troponin I < 0.01 ng/ml (0.00-0.034)
[2022-01-03 13:37] LABS: Magnesium 1.4 mg/dl (1.6-2.3)
[2022-01-03 13:56] LABS: T4 (Thyroxine) 4.9 ug/dl (5.53-11.0)
[2022-01-03 14:09] LABS: Thyroid Stimulating Hormone 0.74 uIU/mL (0.465-4.68)
--- NOTE | 2022-01-03 15:09 | PC.NURSE ---
Called Dr. Ryan, asked if he could call us back in just a bit.
--- NOTE | 2022-01-03 15:19 | PC.NURSE ---
Spoke with pharmacy. They are going to mix the Mag and bring down to the ED
--- NOTE | 2022-01-03 15:40 | CT_ITS ---
FINAL REPORT TECHNIQUE: Axial CT images of the abdomen were obtained without contrast. Coronal reformatted images were also obtained.This study was performed with techniques to keep radiation doses as low as reasonably achievable (ALARA). Individualized dose reduction techniques using automated exposure control or adjustment of mA and/or kV according to the patient''s size were employed. CLINICAL HISTORY: new renal failure COMPARISON: January 04, 2020 FINDINGS: There is bibasilar atelectasis. There is severe coronary artery calcification. The liver has an unremarkable appearance, without evidence of mass. The gallbladder appears normal without evidence of gallstones. There is no evidence of biliary ductal dilatation. The pancreas appears normal. The spleen size is within normal limits. There is a 1.6 cm left adrenal lymph node which is stable and may represent an adenoma. There is no evidence of renal stone or hydronephrosis. There is no evidence of adenopathy. No abnormal fluid collection is seen. No localized inflammatory processes identified. There are moderate vascular calcifications. The appendix appears normal. There is sigmoid diverticulosis. There is a small left inguinal hernia containing fat. IMPRESSION: Stable left adrenal lymph node which may represent an adenoma. No evidence of renal stone or hydronephrosis. Reviewed, Interpreted and Dictated by Giles Kaufman III, MD Transcribed by Radha Allred Authenticated by Giles Kaufman III, MD on 01/03/2022 04:45:09 PM [facility]
[2022-01-03 17:29] LABS: Microscopic, Urine URINE MICROSCOPIC (MICROSCOPIC)
[2022-01-03 17:31] LABS: Appearance,Urine CLEAR (Clear); Bilirubin,Urine Negative (Negative); Blood, Urine Negative (Negative); Color,Urine YELLOW (Yellow); Glucose,Urine (UA) Negative (Negative); Ketones,Urine Negative (Negative); Leukocyte Esterase,Urine Negative (Negative); Nitrate,Urine Negative (Negative); Protein,Urine 1+ (Negative); Specific Gravity, Urine >= 1.030 (1.005-1.030); Urobilinogen,Urine 0.2 EU/dl (0.2)
[2022-01-03 17:51] LABS: Bacteria,Urine Trace /lpf; Squamous Epithelial Cell,Urine Occasional #/hpf (0-5); WBC,Urine Occasional #/hpf (0-3)
--- NOTE | 2022-01-03 17:55 | PC.NURSE ---
[facility] has been called for a bed.
--- NOTE | 2022-01-03 18:00 | PC.NURSE ---
on the phone with hospitalist at [facility]
[2022-01-03 18:06] LABS: Troponin I < 0.01 ng/ml (0.00-0.034)
--- NOTE | 2022-01-03 18:27 | PC.NURSE ---
pt placed on a waiting list at [facility]
[2022-01-03 18:32] LABS: VBG Base Excess -10.1 mmol/L (-2.4-2.3); VBG HCO3 17.2 mmol/L (23-30); VBG Oxygen Saturation 82.8 % (50-70); VBG PCO2 40.6 mmol/L (35-51); VBG PH 7.25 mmol/L (7.31-7.41); VBG PO2 52.3 mmol/L (28-40); VBG Total CO2 18.5 mmol/L (23-27)
--- NOTE | 2022-01-03 18:32 | PC.NURSE ---
[facility] main called patient room on 4A and left number to call report.
--- NOTE | 2022-01-03 18:32 | PC.NURSE ---
number to call report is [phone]
--- NOTE | 2022-01-03 18:36 | PC.NURSE ---
Bere notified of transfer, and Kelli calling report to [facility].
[2022-01-03 19:29] LABS: Lactic Acid 1.2 mmol/L (0.7-2.1)
[2022-01-03 19:42] LABS: Troponin I < 0.01 ng/ml (0.00-0.034)
== END 2022-01-03 19:42 | disposition short-term general hospital (02) ==
PROVIDERS: Emergency Provider Emergency Medicine; PCP Emergency Medicine
DX: R06.02 Shortness of breath (principal); R41.0 Disorientation, unspecified; R53.1 Weakness; R53.81 Other malaise; I10 Essential (primary) hypertension; N17.9 Acute kidney failure, unspecified; I25.10 Atherosclerotic heart disease of native coronary artery without angina pectoris; K21.9 Gastro-esophageal reflux disease without esophagitis; E78.5 Hyperlipidemia, unspecified; E11.9 Type 2 diabetes mellitus without complications; M54.2 Cervicalgia; M54.9 Dorsalgia, unspecified; Z86.73 Personal history of transient ischemic attack (TIA), and cerebral infarction without residual deficits; Z87.891 Personal history of nicotine dependence; Z79.02 Long term (current) use of antithrombotics/antiplatelets; Z79.51 Long term (current) use of inhaled steroids; Z79.82 Long term (current) use of aspirin; Z79.84 Long term (current) use of oral hypoglycemic drugs; Z79.899 Other long term (current) drug therapy; Z88.8 Allergy status to other drugs, medicaments and biological substances
CPT/HCPCS: 36415; 70450; 71045; 74176; 80053; 81001; 82803; 82962; 83605; 83735; 84436; 84443; 84484; 85025; 93005; 96361; 96365; 96367; 96374; 96375; 99285

== ENCOUNTER → 2022-01-13 09:21 | Outpatient (CLI) | payer MEDICARE, SELFPAY ==
[2022-01-13 16:13] LABS: Anion Gap 12.7 mEq/L (5-15); Blood Urea Nitrogen 25 mg/dl (9-20); Calcium 7.9 mg/dl (8.4-10.2); Carbon Dioxide 24 mmol/L (22.0-30.0); Chloride 107 mmol/L (98-107); Estimated Glomerular Filt Rate 51 ml/min (>60); GFR (African American) 61 ML/MIN (>60); Glucose 64 mg/dl (74-100); Potassium 3.7 mmoL/L (3.5-5.1); Sodium 140 mmol/L (136-145)
== END ==
PROVIDERS: Internal Medicine; PCP Emergency Medicine
DX: N17.9 Acute kidney failure, unspecified (principal)
CPT/HCPCS: 36415; 80048

== ENCOUNTER → 2022-01-15 16:00 | Outpatient (CLI) | payer MEDICARE, SELFPAY ==
[2022-01-15 17:53] LABS: Basophils # 0.1 K/mm3 (0-0.2); Basophils % 0.7 % (0.1-2.0); Eosinophils # 0.2 K/mm3 (0.0-0.4); Eosinophils % 2.5 % (0.1-12.0); Hematocrit 36.2 % (42.0-52.0); Hemoglobin 11.9 g/dL (14.1-18.0); Lymphocytes # 1.3 K/mm3 (0.7-4.5); Lymphocytes % 13.8 % (10-50); Mean Corpuscular HGB Conc 32.9 g/dL (31.8-35.4); Mean Corpuscular Hemoglobin 30.7 pg (27.0-31.2); Mean Corpuscular Volume 93.4 fl (80-94); Mean Platelet Volume 8.5 fl (7.4-10.4); Monocytes # 0.6 K/mm3 (0.1-1.0); Monocytes % 5.9 % (1.7-9.3); Neutrophils # 7.3 K/mm3 (1.8-7.8); Neutrophils % 77.1 % (37.0-80.0); Platelet Count 284 K/mm3 (142-424); Red Blood Count 3.87 M/mm3 (4.60-6.20); White Blood Count 9.4 K/mm3 (4.8-10.8)
[2022-01-15 19:29] LABS: Alanine Aminotransferase 37 U/L (12-78); Albumin Level 4.1 g/dl (3.5-5.0); Albumin/Globulin Ratio 1.6 (1.1-1.8); Alkaline Phosphatase 61 U/L (38-126); Anion Gap 18.4 mEq/L (5-15); Aspartate Amino Transferase 35 U/L (17-59); Bilirubin,Total 0.8 mg/dl (0.2-1.3); Blood Urea Nitrogen 14 mg/dl (9-20); Calcium 7.8 mg/dl (8.4-10.2); Carbon Dioxide 21 mmol/L (22.0-30.0); Chloride 106 mmol/L (98-107); Estimated Glomerular Filt Rate 60 ml/min (>60); GFR (African American) 73 ML/MIN (>60); Globulin 2.6 g/dL (1.3-3.2); Potassium 3.4 mmoL/L (3.5-5.1); Sodium 142 mmol/L (136-145); Total Protein,Serum 6.7 g/dl (6.3-8.2)
[2022-01-15 19:48] LABS: Glucose 37 mg/dl (74-100)
== END ==
PROVIDERS: Visit Provider Emergency Medicine
DX: N17.9 Acute kidney failure, unspecified (principal); J44.9 Chronic obstructive pulmonary disease, unspecified
CPT/HCPCS: 80053; 85025

== ENCOUNTER → 2022-01-21 10:49 | Outpatient (CLI) | payer MEDICARE, SELFPAY ==
[2022-01-21 12:22] LABS: Intact Parathyroid Hormone 166.6 pg/mL (7.5-53.5)
[2022-01-21 12:27] LABS: 25-OH Vitamin D, Total 69.5 ng/mL (30-100)
[2022-01-22 17:13] LABS: Calcium, Ionized 4.4 mg/dL (4.5-5.6)
== END ==
PROVIDERS: PCP Emergency Medicine; Visit Provider Physician Assistant
DX: E83.51 Hypocalcemia (principal)
CPT/HCPCS: 36415; 82306; 82330; 83970

== ENCOUNTER → 2022-01-29 12:15 | Outpatient (CLI) | payer MEDICARE, SELFPAY ==
[2022-01-29 12:45] LABS: Basophils # 0.1 K/mm3 (0-0.2); Basophils % 0.9 % (0.1-2.0); Eosinophils # 0.1 K/mm3 (0.0-0.4); Eosinophils % 1.8 % (0.1-12.0); Hematocrit 35.7 % (42.0-52.0); Hemoglobin 11.9 g/dL (14.1-18.0); Lymphocytes # 1.4 K/mm3 (0.7-4.5); Lymphocytes % 24.3 % (10-50); Mean Corpuscular HGB Conc 33.3 g/dL (31.8-35.4); Mean Corpuscular Hemoglobin 30.9 pg (27.0-31.2); Mean Corpuscular Volume 92.9 fl (80-94); Mean Platelet Volume 8.5 fl (7.4-10.4); Monocytes # 0.4 K/mm3 (0.1-1.0); Monocytes % 6.7 % (1.7-9.3); Neutrophils # 3.7 K/mm3 (1.8-7.8); Neutrophils % 66.4 % (37.0-80.0); Platelet Count 247 K/mm3 (142-424); Red Blood Count 3.84 M/mm3 (4.60-6.20); Red Cell Distribution Width 13.6 % (11.5-17.5); White Blood Count 5.6 K/mm3 (4.8-10.8)
[2022-01-29 12:57] LABS: Ammonia < 9 umol/L (9-30)
[2022-01-29 13:15] LABS: Erythrocyte Sedimentation Rate 79 mm/hr (0-20)
[2022-01-29 13:25] LABS: Alanine Aminotransferase 29 U/L (12-78); Albumin Level 4.2 g/dl (3.5-5.0); Albumin/Globulin Ratio 1.6 (1.1-1.8); Alkaline Phosphatase 72 U/L (38-126); Anion Gap 13.3 mEq/L (5-15); Aspartate Amino Transferase 29 U/L (17-59); Bilirubin,Total 0.6 mg/dl (0.2-1.3); Blood Urea Nitrogen 12 mg/dl (9-20); Calcium 9.1 mg/dl (8.4-10.2); Carbon Dioxide 26 mmol/L (22.0-30.0); Chloride 105 mmol/L (98-107); Estimated Glomerular Filt Rate 84 ml/min (>60); GFR (African American) 102 ML/MIN (>60); Globulin 2.6 g/dL (1.3-3.2); Glucose 92 mg/dl (74-100); Potassium 4.3 mmoL/L (3.5-5.1); Sodium 140 mmol/L (136-145); Total Protein,Serum 6.8 g/dl (6.3-8.2)
[2022-01-29 14:13] LABS: Vitamin B12 550 pg/mL (239-931)
== END ==
PROVIDERS: Visit Provider Emergency Medicine
DX: R06.00 Dyspnea, unspecified (principal); J44.9 Chronic obstructive pulmonary disease, unspecified
CPT/HCPCS: 36415; 80053; 82140; 82607; 85025; 85651

== ENCOUNTER 2022-01-30 08:31 | Emergency (ER) | payer MEDICARE, SELFPAY ==
[2022-01-30] VITALS (22 sets, daily range): BP systolic 134–234; BP diastolic 77–124; PULSE 78–107; RESP 14–20; TEMP 36.7–36.9; O2SAT 96–99; BMI 38.3
--- NOTE | 2022-01-30 08:27 | PC.NURSE ---
ED MD at
--- NOTE | 2022-01-30 08:28 | CT_ITS ---
FINAL REPORT TECHNIQUE: Axial CT images were performed through the head. Coronal reformatted images were submitted. This study was performed with techniques to keep radiation doses as low as reasonably achievable (ALARA). Individualized dose reduction techniques using automated exposure control or adjustment of mA and/or kV according to the patient's size were employed. CLINICAL HISTORY: weakness, dizziness, r/o stroke FINDINGS: There is mild atrophy. There is mild to moderate decreased attenuation in the deep white matter which is probably due to chronic ischemia. The ventricles are normal in size. There is no evidence of hemorrhage. There is no mass or edema identified. There is no abnormal extra-axial fluid seen. There is lobular mucoperiosteal thickening in both maxillary sinuses consistent with chronic sinusitis. IMPRESSION: Mild atrophy. Bilateral chronic maxillary sinusitis. Chronic changes of microvascular ischemia. Reviewed, Interpreted and Dictated by Nic Mancera MD Transcribed by Radha Allred Authenticated by Nic Mancera MD on 01/30/2022 08:47:55 AM [facility]
--- NOTE | 2022-01-30 08:28 | PC.NURSE ---
Radiology taking patient to CT by maged
--- NOTE | 2022-01-30 08:29 | XR_ITS ---
FINAL REPORT CLINICAL HISTORY: Acute cough COMPARISON: January 03, 2022 FINDINGS: The heart size is normal. The mediastinum is within normal limits. There are chronic changes at the lung bases. There is no pleural effusion. There is no pneumothorax. The bony thorax is intact. IMPRESSION: No acute cardiopulmonary process. Reviewed, Interpreted and Dictated by Nic Mancera MD Transcribed by Aryan Arndt Authenticated by Nic Mancera MD on 01/30/2022 09:25:24 AM [facility]
--- NOTE | 2022-01-30 08:36 | PC.NURSE ---
pt return from CT
--- NOTE | 2022-01-30 08:37 | PC.NURSE ---
patient back from CT by stretcher with cryptologic technician
--- NOTE | 2022-01-30 08:41 | ECG_ITS ---
APPROVED REPORT Exam: Resting ECG HR:77 bpm ECG Measurements Heart Rate 77 AXES [place] 137 P 59 QRSd 85 QRS 15 QT 367 T 64 QTc 399 Conclusion SINUS RHYTHM NORMAL ECG UNCONFIRMED REPORT Electronically signed by : Malcolm Rodriguez MD 01/30/2022 17:41:17
--- NOTE | 2022-01-30 08:46 | PC.NURSE ---
Family at BS
--- NOTE | 2022-01-30 08:52 | PC.NURSE ---
Patients call light within reach
[2022-01-30 08:57] LABS: Chloride 104 mmol/L (98-107); Potassium 4.5 mmoL/L (3.5-5.1); Sodium 137 mmol/L (136-145)
[2022-01-30 08:59] LABS: Alanine Aminotransferase 27 U/L (12-78); Alkaline Phosphatase 72 U/L (38-126); Aspartate Amino Transferase 38 U/L (17-59); Blood Urea Nitrogen 11 mg/dl (9-20); Creatinine Clearance Estimated 113 mL/min (50-200); Estimated Glomerular Filt Rate 84 ml/min (>60); GFR (African American) 102 ML/MIN (>60)
[2022-01-30 09:00] LABS: Albumin Level 4.2 g/dl (3.5-5.0); Albumin/Globulin Ratio 1.4 (1.1-1.8); Anion Gap 12.5 mEq/L (5-15); Basophils % 0.6 % (0.1-2.0); Calcium 8.6 mg/dl (8.4-10.2); Carbon Dioxide 25 mmol/L (22.0-30.0); Eosinophils # 0.1 K/mm3 (0.0-0.4); Eosinophils % 1.9 % (0.1-12.0); Glucose 97 mg/dl (74-100); Hematocrit 36.6 % (42.0-52.0); Hemoglobin 12.3 g/dL (14.1-18.0); Lymphocytes % 16.1 % (10-50); Mean Corpuscular HGB Conc 33.5 g/dL (31.8-35.4); Mean Corpuscular Volume 92.5 fl (80-94); Mean Platelet Volume 8.5 fl (7.4-10.4); Monocytes # 0.4 K/mm3 (0.1-1.0); Monocytes % 6.3 % (1.7-9.3); Neutrophils # 4.6 K/mm3 (1.8-7.8); Neutrophils % 75.1 % (37.0-80.0); Platelet Count 232 K/mm3 (142-424); Red Blood Count 3.95 M/mm3 (4.60-6.20); Red Cell Distribution Width 13.6 % (11.5-17.5); Total Protein,Serum 7.2 g/dl (6.3-8.2); White Blood Count 6.1 K/mm3 (4.8-10.8)
[2022-01-30 09:02] LABS: Activated Partial Thrombo Time 26.5 seconds (22.8-30.6); INR 1.03 (0.9-1.1); Prothrombin Time 11.6 seconds (10.1-12.5)
[2022-01-30 09:09] LABS: NT Pro Brain Natriuretic Pep. 193 pg/mL (0-125)
[2022-01-30 09:14] LABS: Troponin I < 0.01 ng/ml (0.00-0.034)
--- NOTE | 2022-01-30 09:50 | PC.NURSE ---
contacted MRI to request an MRI for pt per ER MD request. Spoke with [facility], states they can do MRI on pt now. Notified ER .
--- NOTE | 2022-01-30 09:56 | HMH.EDWEAK ---
ED Disposition Clinical Impression: Weakness, Dizziness Hypertension Qualifiers: Hypertension type: primary hypertension Qualified Code(s): I10 - Essential (primary) hypertension Disposition: Home, Self-Care Condition on Discharge: Good Instructions: Dizziness, Nonvertigo Referrals: Kaveh Ryan MD [Primary Care Provider] - Shilpa Menon MD [Staff Physician] - - Critical Care Critical Care Time: No Attestation: On 01/30/22, the high probability of a clinically significant, sudden or life threatening deterioration of the following system(s) required my full and direct attention, intervention and personal management. The time I documented below is in addition to time spent performing reported procedures but includes the following listed in this critical care notation. Medical Decision Making - Medical Records Medical records reviewed: Yes: I reviewed the patient's medical records. - Taco Inquiry Pt receiving controlled substance: No Vital Signs: 01/30/22 08:27 01/30/22 08:43 01/30/22 09:00 Temperature 98.1 F Temperature Source Oral Pulse Rate 78 85 Pulse Rate [Right Radial] 84 Respiratory Rate 18 16 15 Blood Pressure 168/88 H 167/90 H Blood Pressure [Right Arm] 169/94 H Blood Pressure Mean 125 128 Blood Pressure Mean [Right Arm] 119 Blood Pressure Source [Right Arm] Automatic Cuff Blood Pressure Position [Right Arm] Sitting 02 Sat by Pulse Oximetry 99 98 96 Oxygen Delivery Method Room Air Room Air Room Air 01/30/22 09:30 01/30/22 10:52 01/30/22 10:55 Temperature Temperature Source Pulse Rate 83 80 81 Pulse Rate [Right Radial] Respiratory Rate 16 18 15 Blood Pressure 170/92 H 218/124 H Blood Pressure [Right Arm] Blood Pressure Mean 132 163 Blood Pressure Mean [Right Arm] Blood Pressure Source [Right Arm] Blood Pressure Position [Right Arm] 02 Sat by Pulse Oximetry 97 97 Oxygen Delivery Method Room Air Room Air 01/30/22 10:56 01/30/22 11:05 01/30/22 11:31 Temperature Temperature Source Pulse Rate 80 83 97 H Pulse Rate [Right Radial] Respiratory Rate 14 15 18 Blood Pressure 215/117 H 154/93 H 167/84 H Blood Pressure [Right Arm] Blood Pressure Mean 149 113 106 Blood Pressure Mean [Right Arm] Blood Pressure Source [Right Arm] Blood Pressure Position [Right Arm] 02 Sat by Pulse Oximetry 98 99 Oxygen Delivery Method Room Air 01/30/22 12:00 Temperature Temperature Source Pulse Rate 96 H Pulse Rate [Right Radial] Respiratory Rate 15 Blood Pressure 183/102 H Blood Pressure [Right Arm] Blood Pressure Mean 120 Blood Pressure Mean [Right Arm] Blood Pressure Source [Right Arm] Blood Pressure Position [Right Arm] 02 Sat by Pulse Oximetry 99 Oxygen Delivery Method - Lab Data Lab Results 01/30/22 08:45: WBC 6.1, RBC 3.95 L, Hgb 12.3 L, Hct 36.6 L, MCV 92.5, MCH 31.0, MCHC 33.5, RDW 13.6, Plt Count 232, MPV 8.5, Neut % (Auto) 75.1, Lymph % (Auto) 16.1, [place] % (Auto) 6.3, Eos % (Auto) 1.9, Baso % (Auto) 0.6, Neut # (Auto) 4.6, Lymph # (Auto) 1.0, [place] # (Auto) 0.4, Eos # (Auto) 0.1, Baso # (Auto) 0.0 01/30/22 08:45: PT 11.6, INR 1.03, APTT 26.5 01/30/22 08:45: Sodium 137, Potassium 4.5, Chloride 104, Carbon Dioxide 25, Anion Gap 12.5, BUN 11, Creatinine 0.90, Estimated Creat Clear 113, Estimated GFR 84, Est GFR ( Amer) 102, Glucose 97, Calcium 8.6, Total Bilirubin 1.0, AST 38 D, ALT 27, Alkaline Phosphatase 72, Troponin I < 0.01, NT-Pro-B Natriuret Pep 193 H, Total Protein 7.2, Albumin 4.2, Globulin 3.0, Albumin/Globulin Ratio 1.4 Result diagrams: 01/30/22 08:45 01/30/22 08:45 Orders (Tests/Meds): ED MEDICATIONS Generic Name Dose Route Start Last Admin Trade Name Freq PRN Reason Stop Dose Admin Sodium Chloride 10 ml 01/30/22 08:38 Sodium Chloride 0.9% 10ml Flush Syringe IV 03/01/22 08:37 NEEDED PRN Maintain IV Site Discontinued Medications Generic Name Dose Route
--- NOTE | 2022-01-30 09:58 | MR_ITS ---
FINAL REPORT CLINICAL HISTORY: WEAKNESS, DIZZINESS UNABLE TO USE LEFT ARM , STARTED TODAY, NEGATIVE CT HEAD W/O COMPARISON: CT from the same day FINDINGS: Multi planar MR imaging was obtained through the brain without contrast. The midline structures appear intact. There is no evidence of Chiari malformation. There is an area of the vague, subtle abnormal signal in a right posterior parietal cortex best seen on images 19-23 of series 5. This may represent mild cortical edema. The underlying deep white matter appears preserved. There is mild increased signal on restricted diffusion imaging in the right posterior parietal lobe with no corresponding decreased signal on ADC map imaging. There are mild changes of chronic microvascular ischemia bilaterally. On FLAIR axial imaging there is curvilinear signal anterior to the right frontal lobe that appears related to dural thickening best seen on images 15-18 of series 5. There is lobular mucoperiosteal thickening in both maxillary sinuses. The seventh and eighth nerve root complexes are intact. IMPRESSION: Mild cortical edema in the right posterior parietal cortex of unclear significance. Recommend pre and postcontrast MRI. Differentials would include sequela of recent seizure or possibly cerebritis. Abnormal dural thickening anterior to the right frontal cortex. Again recommend pre and postcontrast MRI to better assess for meningitis. Reviewed, Interpreted and Dictated by Nic Mancera MD Transcribed by Aryan Arndt Authenticated by Nic Mancera MD on 01/30/2022 11:33:31 AM [facility]
--- NOTE | 2022-01-30 09:58 | PC.NURSE ---
patient to MRI by stretcher with opthalmic tech
--- NOTE | 2022-01-30 10:51 | PC.NURSE ---
patient back from MRI by stretcher with [employer] techs
--- NOTE | 2022-01-30 12:03 | PC.NURSE ---
ED MD at for update on POC
--- NOTE | 2022-01-30 12:03 | PC.NURSE ---
ER at discussing pt test results with pt and
--- NOTE | 2022-01-30 12:15 | PC.NURSE ---
Myra Rios RN and Peggy Lawrence RN are at BS helping patient get dressed and speaking with friend
--- NOTE | 2022-01-30 12:18 | PC.NURSE ---
ED MD at talking with patient
--- NOTE | 2022-01-30 12:20 | PC.NURSE ---
myself and chinmay dotson attempted to help pt get dressed, assisted pt into standing position, pt states felt like he was going to fall. Pt states he does not feel like he is able to stand independently or to attempt to ambulate. Pt reports he feels disoriented . Notified ER MD, ER MD came to BS to speak with pt and pt . Pt is requesting that we attempt to transfer him.
--- NOTE | 2022-01-30 12:20 | PC.NURSE ---
Contacting [facility] for possible transfer
--- NOTE | 2022-01-30 12:28 | PC.NURSE ---
SILVINO GAGE on phone with MD Neurologist
--- NOTE | 2022-01-30 13:05 | PC.NURSE ---
patient back to MRI by stretcher with emissions testing and repair technician
--- NOTE | 2022-01-30 13:06 | PC.NURSE ---
updated pt and that [facility] is requesting MRI with contrast.
--- NOTE | 2022-01-30 13:12 | MR_ITS ---
FINAL REPORT CLINICAL HISTORY: WEAKNESS, 22ML PROHANCE COMPARISON: 01/30/2022 FINDINGS: Multiplanar MR imaging of the brain was obtained after the administration of IV contrast. There is no evidence of abnormal contrast enhancement in the cortex. There is some asymmetric dural enhancement anteriorly over the right frontal lobe and generally within the right hemisphere. IMPRESSION: No evidence of abnormal enhancement associated with the signal abnormality in the right posterior parietal cortex. Again, findings may be related to sequela of recent seizure or developing cerebritis. Continued follow-up is recommended. Asymmetric dural enhancement in the right hemisphere, most evident anteriorly on the right. Differential diagnosis would include meningitis or post inflammatory reaction. Reviewed, Interpreted and Dictated by Nic Mancera MD Transcribed by Izabela Garcia Authenticated by Nic Mancera MD on 01/30/2022 02:20:59 PM [facility]
--- NOTE | 2022-01-30 13:29 | PC.NURSE ---
Dr Nicolas speaking with [facility]
--- NOTE | 2022-01-30 13:47 | PC.NURSE ---
SILVINO GAGE on phone with MD at [facility]
[2022-01-30 13:51] LABS: Troponin I < 0.01 ng/ml (0.00-0.034)
--- NOTE | 2022-01-30 13:51 | PC.NURSE ---
patient back from MRI by stretcher with senior laboratory technician
--- NOTE | 2022-01-30 13:57 | PC.NURSE ---
Contacting [facility] neurology team; ED speaking with stroke navigator
--- NOTE | 2022-01-30 14:10 | PC.NURSE ---
ED MD on phone with Neurologist at [facility]
--- NOTE | 2022-01-30 14:30 | PC.NURSE ---
patient used urinal with assistance from friend
[2022-01-30 14:39] LABS: Microscopic, Urine URINE MICROSCOPIC (MICROSCOPIC)
--- NOTE | 2022-01-30 14:40 | PC.NURSE ---
made aware of patients BP
[2022-01-30 14:42] LABS: Appearance,Urine CLEAR (Clear); Blood, Urine Negative (Negative); Color,Urine YELLOW (Yellow); Glucose,Urine (UA) Negative (Negative); Ketones,Urine 3+ (Negative); Leukocyte Esterase,Urine Negative (Negative); Nitrate,Urine Negative (Negative); PH,Urine 7.5 (5.0-8.5); Protein,Urine Negative (Negative); Urobilinogen,Urine 0.2 EU/dl (0.2)
[2022-01-30 14:45] LABS: Bilirubin,Urine Negative (Negative)
[2022-01-30 14:48] LABS: Influenza A, PCR Not Detected (NotDetected); Influenza B, PCR Not Detected (NotDetected)
[2022-01-30 14:49] LABS: Coronavirus 19, PCR Not Detected (NotDetected)
[2022-01-30 14:53] LABS: Bacteria,Urine Trace /lpf; Squamous Epithelial Cell,Urine Occasional #/hpf (0-5)
--- NOTE | 2022-01-30 16:08 | PC.NURSE ---
ED MD at for lumbar procedure with assistance from Myra Rios RN and Arelis Gambino Machine Design Checker
--- NOTE | 2022-01-30 16:24 | PC.NURSE ---
January, on phone with [facility] taking bed assignment
--- NOTE | 2022-01-30 17:28 | PC.NURSE ---
report called to breonna diaz rn at on 6th floor [facility]
--- NOTE | 2022-01-30 17:38 | PC.NURSE ---
report given to [facility]
== END 2022-01-30 18:00 | disposition home or self-care (01) ==
PROVIDERS: Emergency Provider Emergency Medicine; PCP Emergency Medicine
DX: R42 Dizziness and giddiness (principal); R20.2 Paresthesia of skin; R53.1 Weakness; M54.2 Cervicalgia; M54.9 Dorsalgia, unspecified; R26.81 Unsteadiness on feet; I10 Essential (primary) hypertension; I25.10 Atherosclerotic heart disease of native coronary artery without angina pectoris; E78.5 Hyperlipidemia, unspecified; K21.9 Gastro-esophageal reflux disease without esophagitis; E11.9 Type 2 diabetes mellitus without complications; J44.9 Chronic obstructive pulmonary disease, unspecified; Z79.02 Long term (current) use of antithrombotics/antiplatelets; Z79.51 Long term (current) use of inhaled steroids; Z79.82 Long term (current) use of aspirin; Z79.899 Other long term (current) drug therapy; Z88.8 Allergy status to other drugs, medicaments and biological substances; Z86.73 Personal history of transient ischemic attack (TIA), and cerebral infarction without residual deficits; Z87.891 Personal history of nicotine dependence; Z82.49 Family history of ischemic heart disease and other diseases of the circulatory system; Z83.3 Family history of diabetes mellitus; W17.89XA Other fall from one level to another, initial encounter; Y93.01 Activity, walking, marching and hiking; Y92.002 Bathroom of unspecified non-institutional (private) residence as the place of occurrence of the external cause
CPT/HCPCS: 70450; 70551; 70552; 71045; 80053; 81001; 83880; 84484; 85025; 85610; 85730; 93005; 96374; 96375; 99285; A9576; C9803; U0003; U0005

== ENCOUNTER 2022-06-23 03:41 | Emergency (ER) | payer MEDICARE, SELFPAY ==
[2022-06-23 03:41] VITALS: BP 145/82; PULSE 62; RESP 16; TEMP 36.6; O2SAT 98; BMI 34.4
--- NOTE | 2022-06-23 03:47 | CT_ITS ---
PROCEDURE INFORMATION: Exam: CT Thoracic Spine Without Contrast Exam date and time: 06/23/2022 4:12 AM Age: 66 years old Clinical indication: Injury or trauma; Fall; Blunt trauma (contusions or hematomas); Additional info: Fall, back pain TECHNIQUE: Imaging protocol: Computed tomography of the thoracic spine without contrast. Radiation optimization: All CT scans at this facility use at least one of these dose optimization techniques: automated exposure control; mA and/or kV adjustment per patient size (includes targeted exams where dose is matched to clinical indication); or iterative reconstruction. COMPARISON: CT CERVICAL SPINE WO CON 06/23/2022 4:10 AM FINDINGS: Bones/joints: No acute fracture. Normal alignment. No significant disc protrusion. No severe spinal canal stenosis. Small anterior osteophytes at multiple levels. Soft tissues: Unremarkable. Lymph nodes: Small calcified left hilar nodes. Other findings: Coronary artery calcifications are present. IMPRESSION: No thoracic spine fracture, subluxation or wedge compression deformity.
--- NOTE | 2022-06-23 03:47 | XR_ITS ---
PROCEDURE INFORMATION: Exam: XR Pelvis Exam date and time: 06/23/2022 4:36 AM Age: 66 years old Clinical indication: Injury or trauma; Fall; Blunt trauma (contusions or hematomas); Bilateral; Pelvic region TECHNIQUE: Imaging protocol: Radiologic exam of the pelvis. Views: 1 or 2 view. AP pelvis COMPARISON: CT ABDOMEN PELVIS WO CON 01/03/2022 3:46 PM FINDINGS: Bones/joints: Unremarkable. No acute fracture. Soft tissues: Unremarkable. IMPRESSION: There is no evidence of acute fracture or malalignment.
--- NOTE | 2022-06-23 03:47 | CT_ITS ---
PROCEDURE INFORMATION: Exam: CT Cervical Spine Without Contrast Exam date and time: 06/23/2022 4:10 AM Age: 66 years old Clinical indication: Injury or trauma; Fall; Blunt trauma TECHNIQUE: Imaging protocol: Computed tomography of the cervical spine without contrast. Radiation optimization: All CT scans at this facility use at least one of these dose optimization techniques: automated exposure control; mA and/or kV adjustment per patient size (includes targeted exams where dose is matched to clinical indication); or iterative reconstruction. COMPARISON: CT HEAD/BRAIN WO CON 06/23/2022 4:07 AM FINDINGS: Bones/joints: No acute fracture. Normal alignment. Multilevel discogenic endplate changes with disc ridging, no significant spinal canal narrowing. Multilevel uncovertebral hypertrophy and facet hypertrophic changes bilaterally with associated foraminal narrowing. Lungs: Lung apices are normal. Soft tissues: Unremarkable. IMPRESSION: 1. No acute fracture or malalignment. 2. Multilevel spondylitic changes.
--- NOTE | 2022-06-23 03:47 | XR_ITS ---
PROCEDURE INFORMATION: Exam: XR Chest Exam date and time: 06/23/2022 4:33 AM Age: 66 years old Clinical indication: Injury or trauma; Fall; Blunt trauma (contusions or hematomas); Additional info: Fall landed on his back TECHNIQUE: Imaging protocol: Radiologic exam of the chest. Views: 1 view. COMPARISON: CR XR CHEST PORTABLE 01/30/2022 8:33 AM FINDINGS: Lungs: Hypoventilatory changes of the lungs, with perihilar vascular crowding and a diffuse increase in pulmonary parenchymal density. No consolidation. Pleural spaces: Unremarkable. No pleural effusion. No pneumothorax. Heart/Mediastinum: Unremarkable. No cardiomegaly. Bones/joints: Mild degenerative changes bilateral acromioclavicular joints. No acute fracture. Degenerative changes of the spine. IMPRESSION: Hypoventilatory changes, no acute findings.
--- NOTE | 2022-06-23 03:47 | CT_ITS ---
PROCEDURE INFORMATION: Exam: CT Lumbar Spine Without Contrast Exam date and time: 06/23/2022 4:15 AM Age: 66 years old Clinical indication: Injury or trauma; Fall; Blunt trauma (contusions or hematomas); Additional info: Fall mid and low back pain TECHNIQUE: Imaging protocol: Computed tomography of the lumbar spine without contrast. Radiation optimization: All CT scans at this facility use at least one of these dose optimization techniques: automated exposure control; mA and/or kV adjustment per patient size (includes targeted exams where dose is matched to clinical indication); or iterative reconstruction. COMPARISON: MR LUMBAR SPINE WO CON 08/11/2020 10:36 AM FINDINGS: Bones/joints: Similar scoliosis. No acute fracture. No wedge compression deformity. Multilevel vacuum disc. Multilevel anterior osteophytes. Posterior calcified disc bulges again noted at L2-L3 and L3-L4 with similar spinal canal and foraminal narrowing at these levels. Similar bilateral hypertrophic facet changes. Vasculature: The aorta demonstrates moderate atherosclerotic calcification. 2.3 cm ectasia of the infrarenal abdominal aorta. Soft tissues: Unremarkable. IMPRESSION: No acute fracture or malalignment. Multilevel spondylitic changes appear similar to prior study.
--- NOTE | 2022-06-23 03:47 | CT_ITS ---
PROCEDURE INFORMATION: Exam: CT Head Without Contrast Exam date and time: 06/23/2022 4:07 AM Age: 66 years old Clinical indication: Injury or trauma; Fall; Blunt trauma (contusions or hematomas); Without loss of consciousness; Additional info: Fall landed on his back TECHNIQUE: Imaging protocol: Computed tomography of the head without contrast. Radiation optimization: All CT scans at this facility use at least one of these dose optimization techniques: automated exposure control; mA and/or kV adjustment per patient size (includes targeted exams where dose is matched to clinical indication); or iterative reconstruction. COMPARISON: MR HEAD/BRAIN W CON 01/30/2022 1:23 PM FINDINGS: Brain: There is diffuse enlargement CSF containing spaces consistent with global parenchymal volume loss. No acute intracranial hemorrhage. No evidence of large acute territorial infarct or significant cerebral edema. No midline shift or significant mass effect. Cerebral ventricles: No hydrocephalus. Paranasal sinuses: Mild mucosal thickening within the maxillary sinuses. Mastoid air cells: The mastoid air cells are clear. Orbital cavities: The orbits are unremarkable. Bones/joints: No acute fracture. Postsurgical changes of the right parietal calvarium. Soft tissues: The superficial soft tissues are normal. IMPRESSION: 1. No acute intracranial hemorrhage or large territorial infarct recommend correlation with history/physical exam and if clinical concern persists consider further evaluation with MRI. 2. Other findings as above.
[2022-06-23 04:14] LABS: Microscopic, Urine URINE MICROSCOPIC (MICROSCOPIC)
[2022-06-23 04:15] LABS: Appearance,Urine CLEAR (Clear); Bilirubin,Urine Negative (Negative); Blood, Urine TRACE-I (Negative); Color,Urine YELLOW (Yellow); Glucose,Urine (UA) Negative (Negative); Ketones,Urine Negative (Negative); Leukocyte Esterase,Urine Negative (Negative); Nitrate,Urine Negative (Negative); Protein,Urine Negative (Negative); Specific Gravity, Urine 1.015 (1.005-1.030); Urobilinogen,Urine 0.2 EU/dl (0.2)
--- NOTE | 2022-06-23 04:39 | HMH.EDFALL ---
Discharge Plan Disposition Patient Disposition: Home, Self-Care Condition: Good Prescriptions Prescriptions: No Action nitroglycerin 0.4 mg tablet, sublingual 0.4 mg SUBLINGUAL Q5M PRN (Reason: chest pain) Qty: 25 0RF Rx Instructions: ONE TABLET UNDER TONGUE FOR CHEST PAIN, MAY REPEAT EVERY 5 MINUTES 3 THREE TIMES IF NEEDED lacosamide 150 mg tablet 150 mg PO BID atorvastatin 80 mg tablet 80 mg PO HS divalproex 500 mg tablet,delayed release (DR/EC) 1,000 mg PO BID metformin 500 mg tablet 500 mg PO BID Qty: 60 2RF olanzapine 5 mg tablet 5 mg PO HS Qty: 90 0RF fluconazole [Diflucan] 150 mg tablet 150 mg PO DAILY Qty: 10 0RF clindamycin HCl 300 mg capsule 300 mg PO TID Qty: 30 0RF hydrocodone-acetaminophen 5-325 mg tablet 1 tab PO TID Qty: 90 0RF flu vacc [id number] 6mos up(PF) 60 mcg (15 mcg x 4)/0.5 mL syringe 0.5 ml IM ONCE Qty: 0.5 0RF (DME) OneTouch Verio test strips Strip See Rx Instructions .ROUTE .MEDSUPPLY Qty: 100 1RF Rx Instructions: Test once daily albuterol sulfate 90 mcg/actuation HFA aerosol inhaler 1 inh INHALATION QID Qty: 8.5 2RF Breo Ellipta 100-25 mcg/dose blister with device 1 inh INHALATION Q24H Qty: 60 3RF levetiracetam 1,000 mg tablet 2,000 mg PO BID Qty: 60 0RF metoprolol succinate [Toprol XL] 50 mg tablet extended release 24 hr 50 mg PO DAILY Qty: 90 3RF cholecalciferol (vitamin D3) 25 mcg (1,000 unit) capsule 1,000 unit PO DAILY Qty: 90 2RF aspirin 81 MG tablet,chewable 81 mg PO DAILY clopidogrel 75 MG tablet 75 mg PO DAILY Referrals Follow up/Referrals: Kaveh Ryan MD [Primary Care Provider] - See instructions Activity Restrictions/Add. Instructions Additional Instructions/Restrictions: Please follow up with your primary care physician in 2-3 days for evaluation. Please take tylenol for pain control. May also utilze your pain meds provided to you by your primary care physician. Please continue to do your excercises daily until you have physical therapy to help prevent deconditioning. Walk with walker at all times. Please return if unable to stand, worsening back pain, numbness, weakness or any other concerns. Clinical Impressions Clinical Impression: Fall, Physical deconditioning Instructions Patient Instructions: Strengthening Your Muscles, How to Prevent Falls Discharge ED Provider: Sujata Joyce HPI General Chief Complaint: Fall Stated Complaint: fall Time Seen by Provider: 06/23/22 04:00 Mode of Arrival: Ambulatory Source of Information: Patient Limitations: No Limitations Description of Symptoms (Recalled from ER Triage Doc. by RN): pt from home after a fall from standing in his bathroom pt stateds he turned and fell hitting hard landing on his back. no lacerations. no loc. pt is in a c-collar upon arrival History of Present Illness HPI Narrative: Mr. Maldonado is a 66 yo male w/ PMH significant for physical deconditioning, recent discharge from , walker dependent, chronic back pain, CAD, HLD, HTN presenting to the ED for generalized weakness. Patient reports that he was walking to the rest room and slipped, loosing his footing. He reports he was not using his walker at this time. Patient reports he fell from standing onto bathroom floor. He reports hitting head, -LOC. He landed on his back. He reports lower back pain and neck pain. No numbness, weakness. No sensorimotor changes. Patient denies headache, chest, abdominal, pelvis or other extremtiy pain at this time. Plavix and ASA daily no other blood thinner use. MD complaint: fall Onset (ago): minute(s) Fall from: standing Fall witnessed: no Place fall occurred: home Loss of consciousness: none Prolonged down time: no Symptoms prior to fall: none Context: tripped/slipped Location of injury: neck and back Related Data Home Medications Medication Instructions Recorded Confirmed aspirin 81 mg chewa
[2022-06-23 05:32] VITALS: BP 147/78; PULSE 61; RESP 98; TEMP 36.6
== END 2022-06-23 05:34 | disposition home or self-care (01) ==
PROVIDERS: Emergency Provider Student in an Organized Health Care Education/Training Program; PCP Emergency Medicine
DX: R53.81 Other malaise (principal); W19.XXXA Unspecified fall, initial encounter; Y92.002 Bathroom of unspecified non-institutional (private) residence as the place of occurrence of the external cause; Z72.3 Lack of physical exercise; I25.10 Atherosclerotic heart disease of native coronary artery without angina pectoris; E78.5 Hyperlipidemia, unspecified; I10 Essential (primary) hypertension
CPT/HCPCS: 70450; 71045; 72125; 72128; 72131; 72170; 81001; 99285

== ENCOUNTER 2022-07-06 13:19 | Observation (INO) | payer MEDICARE, SELFPAY ==
[2022-07-06] VITALS (9 sets, daily range): BP systolic 111–146; BP diastolic 64–93; PULSE 66–89; RESP 16–20; TEMP 36.5–36.9; O2SAT 92–98; BMI 27.1; BMI 27.8; BMI 31.4
[2022-07-06 14:17] LABS: Basophils # 0.1 K/mm3 (0-0.2); Eosinophils # 0.1 K/mm3 (0.0-0.4); Eosinophils % 1.7 % (0.1-12.0); Hematocrit 50.5 % (42.0-52.0); Hemoglobin 16.7 g/dL (14.1-18.0); Lymphocytes # 1.5 K/mm3 (0.7-4.5); Lymphocytes % 31.6 % (10-50); Mean Corpuscular HGB Conc 33.1 g/dL (31.8-35.4); Mean Corpuscular Hemoglobin 30.5 pg (27.0-31.2); Mean Corpuscular Volume 92.2 fl (80-94); Mean Platelet Volume 8.7 fl (7.4-10.4); Monocytes # 0.4 K/mm3 (0.1-1.0); Monocytes % 8.1 % (1.7-9.3); Neutrophils # 2.8 K/mm3 (1.8-7.8); Neutrophils % 56.7 % (37.0-80.0); Platelet Count 152 K/mm3 (142-424); Red Blood Count 5.48 M/mm3 (4.60-6.20); Red Cell Distribution Width 13.1 % (11.5-17.5); White Blood Count 4.9 K/mm3 (4.8-10.8)
[2022-07-06 14:21] LABS: Chloride 101 mmol/L (98-107); Sodium 142 mmol/L (136-145)
[2022-07-06 14:22] LABS: Potassium 4.8 mmoL/L (3.5-5.1)
[2022-07-06 14:24] LABS: Alanine Aminotransferase 41 U/L (12-78); Albumin Level 4.4 g/dl (3.5-5.0); Albumin/Globulin Ratio 1.2 (1.1-1.8); Alkaline Phosphatase 54 U/L (38-126); Anion Gap 21.8 mEq/L (5-15); Aspartate Amino Transferase 60 U/L (17-59); Bilirubin,Total 0.3 mg/dl (0.2-1.3); Blood Urea Nitrogen 41 mg/dl (9-20); Carbon Dioxide 24 mmol/L (22.0-30.0); Creatinine Clearance Estimated 92 mL/min (50-200); Estimated Glomerular Filt Rate 84 ml/min (>60); GFR (African American) 102 ML/MIN (>60); Globulin 3.7 g/dL (1.3-3.2); Total Protein,Serum 8.1 g/dl (6.3-8.2)
[2022-07-06 14:25] LABS: Calcium 9.6 mg/dl (8.4-10.2); Glucose 105 mg/dl (74-100)
--- NOTE | 2022-07-06 14:27 | XR_ITS ---
PROCEDURE INFORMATION: Exam: XR Chest Exam date and time: 07/06/2022 3:09 PM Age: 66 years old Clinical indication: Other: Weakness; Additional info: Weak TECHNIQUE: Imaging protocol: Radiologic exam of the chest. Views: 1 view. COMPARISON: CR XR CHEST PORTABLE 06/23/2022 4:33 AM FINDINGS: Lungs: Unremarkable. No consolidation. Pleural spaces: Unremarkable. No pleural effusion. No pneumothorax. Heart/Mediastinum: Unremarkable. No cardiomegaly. Bones/joints: Unremarkable. IMPRESSION: No acute findings.
--- NOTE | 2022-07-06 14:35 | HMH.EDGENADL ---
Discharge Plan Disposition Patient Disposition: Admitted as Observation Condition: Serious Clinical Impressions Clinical Impression: Enceph/encephmye oth dis Discharge ED Provider: Arnaldo Han Adult HPI General Chief complaint: PAIN Stated complaint: weakness Time Seen by Provider: 07/06/22 14:06 Mode of Arrival: EMS Source of Information: Patient Limitations: Physical Limitations Description of Symptoms (Recalled from ER Triage Doc. by RN): to ed per squad history obtained from family. states pt has had a decline in health, becoming combative at home. will not eat or drink. states he has had multiple falls. symptoms worse over the last week. pt d/lawrence from several weeks ago dx with brain lesions family unsure of dx. pt alert confused History of Present Illness HPI narrative: Patient arrives by ambulance. History obtained from the patient's girlfriend, who lives with him. She says that the patient had an extended hospital stay at [facility] for 3 months, last discharged on 04/17/2022. He has had altered mental status, generalized weakness, tremor. She says that brain lesions were found but no definitive diagnosis was made. He has had 1 follow-up at [facility] neurology on 05/28/2022. He was getting physical therapy at home and seemed to initially be improving but she says he is now backsliding. He had 6 falls in the period of 1 week, and has not walked at all in 1 week. He is not eating and is drinking very little. He will not get up even to go to the bathroom. He speaks in just a whisper. He is becoming violent and combative with her. Girlfriend states that she can no longer take care of him and has had it . Related Data Home Medications Medication Instructions Recorded Confirmed aspirin 81 mg chewable tablet 81 mg PO DAILY heart 03/11/19 07/06/22 clopidogrel 75 mg tablet 75 mg PO DAILY heart 01/30/22 07/06/22 atorvastatin 80 mg tablet 80 mg PO HS Cholesterol 05/05/22 07/06/22 divalproex 500 mg tablet,delayed 1,000 mg PO BID seizure 05/05/22 07/06/22 release lacosamide 150 mg tablet 150 mg PO BID unknown 05/05/22 07/06/22 blood sugar diagnostic (OneTouch 07/06/22 07/06/22 Verio test strips) cholecalciferol (vitamin D3) 25 1,000 unit PO DAILY Supplement 07/06/22 07/06/22 mcg (1,000 unit) capsule fluticasone furoate 100 1 inh inhalation Q24H Allergy 07/06/22 07/06/22 mcg-vilanterol 25 mcg/dose symptoms inhalation powder (Breo Ellipta) hydrocodone 5 mg-acetaminophen 325 1 tab PO TID Pain 07/06/22 07/06/22 mg tablet levetiracetam 1,000 mg tablet 2,000 mg PO BID seizure 07/06/22 07/06/22 metformin 500 mg tablet 500 mg PO BID Diabetes 07/06/22 07/06/22 metoprolol succinate 50 mg 50 mg PO DAILY High blood pressure 07/06/22 07/06/22 tablet,extended release 24 hr (Toprol XL) olanzapine 5 mg tablet 5 mg PO HS Anxiety 07/06/22 07/06/22 Previous Rx's Medication Instructions Recorded nitroglycerin 0.4 mg sublingual 0.4 mg sublingual Q5M PRN chest 05/14/21 tablet pain #25 tabs Allergies Allergy/AdvReac Type Severity Reaction Status Date / Time isosorbide [From Imdur] AdvReac Mild Verified 06/25/22 10:[facility] Medical History Carotid artery disease Coronary arteriosclerosis Hyperlipidemia Hypertensive disorder Lesion of brain SOB (shortness of breath) Surgical History Stented coronary artery Family History (Updated 07/06/22 @ 18:54 by Monica Mauro RN) Other No significant family history Social History (Updated 07/06/22 @ 18:54 by Monica Mauro RN) Smoking Status: Former smoker second hand exposure: No alcohol intake: former counseling provided: provider counseling substance use type: denies use current occupational status: retired Travel in the last 8 weeks: None household members: spouse housing: house
--- NOTE | 2022-07-06 14:45 | CT_ITS ---
PROCEDURE INFORMATION: Exam: CT Head Without Contrast Exam date and time: 07/06/2022 2:50 PM Age: 66 years old Clinical indication: Injury or trauma; Other: Fall & weakness; Additional info: AMS, falls, weakness TECHNIQUE: Imaging protocol: Computed tomography of the head without contrast. Radiation optimization: All CT scans at this facility use at least one of these dose optimization techniques: automated exposure control; mA and/or kV adjustment per patient size (includes targeted exams where dose is matched to clinical indication); or iterative reconstruction. COMPARISON: CT HEAD/BRAIN WO CON 06/23/2022 4:07 AM FINDINGS: Brain: Age-related atrophy and chronic white matter ischemic changes, with no evidence of an acute intracranial abnormality. No hemorrhage, mass effect or midline shift. Cerebral ventricles: No ventriculomegaly. Paranasal sinuses: Mild mucosal thickening noted within the maxillary sinuses. Mastoid air cells: Visualized mastoid air cells are well aerated. Bones/joints: Postoperative changes of the right posterior parietal bone. Soft tissues: No acute changes IMPRESSION: 1. Age-related atrophy and chronic white matter ischemic changes, with no evidence of an acute intracranial abnormality. 2. No hemorrhage, mass effect or midline shift.
--- NOTE | 2022-07-06 14:48 | ECG_ITS ---
APPROVED REPORT Exam: Resting ECG HR:79 bpm ECG Measurements Heart Rate 79 AXES IA 161 P 61 QRSd 88 QRS -4 QT 354 T 64 QTc 388 Conclusion SINUS RHYTHM NONSPECIFIC T-WAVE ABNORMALITY BORDERLINE ECG UNCONFIRMED REPORT Electronically signed by : Malcolm Rodriguez MD 07/07/2022 15:12:59
[2022-07-06 14:49] LABS: Valproic Acid, (Depakene) 101.2 ug/ml (50-100)
[2022-07-06 14:56] LABS: Creatine Kinase 68 U/L (55-170)
[2022-07-06 15:01] LABS: C-Reactive Protein 8.9 mg/L (0-4)
[2022-07-06 15:14] LABS: Erythrocyte Sedimentation Rate 11 mm/hr (0-20)
[2022-07-06 15:14] LABS: Coronavirus 19, PCR Not Detected (NotDetected); Influenza A, PCR Not Detected (NotDetected); Influenza B, PCR Not Detected (NotDetected)
[2022-07-06 15:52] LABS: Ammonia 12 umol/L (9-30)
--- NOTE | 2022-07-06 15:52 | PC.NURSE ---
pt changed and dry brief put back on.
--- NOTE | 2022-07-06 16:12 | PC.NURSE ---
Dr Han speaking with Dr Ryan
--- NOTE | 2022-07-06 16:30 | PC.NURSE ---
[facility] called for transfer, they requested images be power shared, they will call back as sooon as possible.
--- NOTE | 2022-07-06 16:33 | PC.NURSE ---
family at bedside pt straight cath pt layne well
[2022-07-06 16:38] LABS: Microscopic, Urine URINE MICROSCOPIC (MICROSCOPIC)
[2022-07-06 16:39] LABS: Appearance,Urine CLEAR (Clear); Blood, Urine TRACE-I (Negative); Color,Urine YELLOW (Yellow); Glucose,Urine (UA) Negative (Negative); Ketones,Urine 1+ (Negative); Leukocyte Esterase,Urine Negative (Negative); Nitrate,Urine Negative (Negative); Protein,Urine Negative (Negative); Specific Gravity, Urine 1.025 (1.005-1.030); Urobilinogen,Urine 0.2 EU/dl (0.2)
[2022-07-06 16:41] LABS: Bilirubin,Urine 2+ (Negative)
[2022-07-06 16:55] LABS: RBC,Urine Occasional #/hpf (0-3)
--- NOTE | 2022-07-06 16:55 | PC.NURSE ---
Dr Han speaking with [facility]
--- NOTE | 2022-07-06 17:06 | PC.NURSE ---
house called for admission
--- NOTE | 2022-07-06 17:54 | PC.NURSE ---
report called to floor
--- NOTE | 2022-07-06 17:56 | PC.NURSE ---
Received report from marisol. Just received two other admissions about 15 mins ago. Once we get them settled we will be down to get pt from ER.
--- NOTE | 2022-07-06 18:35 | PC.NURSE ---
patient arrived to floor from ED by stretcher
--- NOTE | 2022-07-06 19:56 | PC.NURSE ---
Pt was admitted to the floor at 1835. He is A/O to self and place. He whispers when he speaks, and is very disorganized speech.
--- NOTE | 2022-07-07 03:53 | PC.NURSE ---
No changes since previous assessment. Pt has been able to tell us his name and the year this shift. Pt responds to most commands (squeeze fingers, move feet, smile, stick tongue out.) When you ask pt questions he sometimes answers appropriately, and other times he will say random things or not respond at all. Pt has been calm, and cooperative. Pts fsbs at bedtime was 91. Pt has not had much of an appetite, and when asked if he wanted anything to drink he refused. Pt is total care, incontinent, [id number]. He has rested majority of my shift. IV infusing per order. Seizure pads in place, bed alarm on. Call light in reach.
[2022-07-07 04:00] VITALS: BP 124/66; PULSE 58; RESP 18; TEMP 36.5; O2SAT 96
[2022-07-07 05:00] VITALS: BMI 33.3
[2022-07-07 06:56] LABS: Basophils # 0.1 K/mm3 (0-0.2); Basophils % 1.7 % (0.1-2.0); Eosinophils # 0.1 K/mm3 (0.0-0.4); Eosinophils % 2.7 % (0.1-12.0); Hematocrit 44.5 % (42.0-52.0); Lymphocytes # 1.1 K/mm3 (0.7-4.5); Lymphocytes % 29.3 % (10-50); Mean Corpuscular HGB Conc 32.6 g/dL (31.8-35.4); Mean Corpuscular Hemoglobin 30.6 pg (27.0-31.2); Mean Corpuscular Volume 93.8 fl (80-94); Mean Platelet Volume 8.8 fl (7.4-10.4); Monocytes # 0.5 K/mm3 (0.1-1.0); Neutrophils % 53.2 % (37.0-80.0); Platelet Count 91 K/mm3 (142-424); Red Blood Count 4.74 M/mm3 (4.60-6.20); Red Cell Distribution Width 13.2 % (11.5-17.5); White Blood Count 3.7 K/mm3 (4.8-10.8)
[2022-07-07 07:29] LABS: Anion Gap 12.3 mEq/L (5-15); Blood Urea Nitrogen 36 mg/dl (9-20); Calcium 8.7 mg/dl (8.4-10.2); Carbon Dioxide 24 mmol/L (22.0-30.0); Chloride 107 mmol/L (98-107); Creatinine Clearance Estimated 98 mL/min (50-200); Estimated Glomerular Filt Rate 134 ml/min (>60); GFR (African American) 163 ML/MIN (>60); Glucose 86 mg/dl (74-100); Potassium 4.3 mmoL/L (3.5-5.1); Sodium 139 mmol/L (136-145)
[2022-07-07 07:31] LABS: Hemoglobin 14.5 g/dL (14.1-18.0)
--- NOTE | 2022-07-07 07:34 | EXP.PHA.VTE ---
[facility] Pharmacy VTE Monitoring Patient Demographics Admission date: 07/06/22 Report Date: 07/07/22 Time: 07:34 Patient Allergies isosorbide [From Imdur] Adverse Reaction (Mild, Verified 06/25/22 10:46) Height: 1.7 m Weight: 96.247 kg Current Active Problems (Updated 07/06/22 @ 18:40 by Nata Goodman RN) Enceph/encephmye oth dis (Acute) VTE Risk Labs: VTE Related Lab Results Hgb 14.5 g/dL (14.1-18.0) D 07/07/22 06:44 Hct 44.5 % (42.0-52.0) 07/07/22 06:44 Plt Count 91 K/mm3 (142-424) L D 07/07/22 06:44 BUN 36 mg/dl (9-20) H 07/07/22 06:44 Creatinine 0.60 mg/dl (0.66-1.25) L D 07/07/22 06:44 Estimated Creat Clear 98 mL/min (50-200) 07/07/22 06:44 VTE Score: 3 VTE Risk Level: Low Risk Prophylaxis VTE Prophylaxis Ordered?: Yes Types of VTE Prophylaxis: TEDS Knee High Location of Applied Device: Bilateral Lower Extremeties
[2022-07-07 08:00] VITALS: BP 126/62; PULSE 66; RESP 19; TEMP 36.6; O2SAT 96
--- NOTE | 2022-07-07 09:49 | HMH.OTEV ---
OT Inpatient Evaluation Rehab OT IP Evaluation Start: 07/07/22 08:13 Freq: ONCE Status: Complete Protocol: Document 07/07/22 09:42 RUPERTO (Rec: 07/07/22 09:49 [id number] Rehab OT IP Assessment Subjective History Pt oriented x 2 on arrival. Pt agreeable to engage in therapy evaluation. Pt does demonstrate with slight confusion. Pt was admitted via ED on 07/06/22 due to decline in functional status and weakness. Prior to being in the hospital, pt reports he lived at home with his girlfriend. Pt claims he was independent with feeding himself and dressing. However he was dependent upon his girlfriend for assistance while showering. He was also dependent upon girlfriend for all IADLs. Pt did use a walker during ambulation. Pt does require max verbal cueing for instruction during functional transfers. The following information was copied from ER documentation: Patient arrives by ambulance. History obtained from the patient's girlfriend, who lives with him. She says that the patient had an extended hospital stay at [facility] for 3 months, last discharged on 04/17/2022. He has had altered mental status, generalized weakness, tremor. She says that brain lesions were found but no definitive diagnosis was made. He has had 1 follow-up at [facility] neurology on 2021. He was getting physical therapy at home and seemed to initially be improving but she says he is now backsliding . He had 6 falls in the period of 1 week, and has not walked at all in 1 wee
--- NOTE | 2022-07-07 10:46 | HMH.PHAINT1 ---
Pharmacy Intervention Comments: MEDICATION RECONCILIATION COMPLETED ON PATIENT USING EXTERNAL FILL HISTORY FROM PHARMACY. -HECTOR RINCON, PATRIAD
--- NOTE | 2022-07-07 11:21 | HMH.PTEV ---
Physical Therapy Evaluation Rehab PT IP Evaluation Start: 07/07/22 08:12 Freq: ONCE Status: Active Protocol: Document 07/07/22 11:00 ALINA (Rec: 07/07/22 11:21 ALINA [id number]) Subjective/History History History This is the initial IP physical therapy evaluation for Efrain Maldonado, a 66 y/o male admitted to [facility] to monitor encephalitis. Pt has altered mental status, generalized weakness, and tremor. Pt also has h/o recurrent falls. Pt had extended stay at hospital - last discharge from was . Pt is still awaiting definitive diagnosis. Written by Мария Palma, SPT Subjective Subjective Pt presented confused / was poor historian. Pt states that he lives in an apartment w/ girlfriend that doesn't have steps to enter and denied using any AD prior to admission. Rehab PT IP Eval Objective Appearance Patient Behavior Cooperative,Wandering,Confused Patient Orientation Person,Place,Name,Year Difficulty following instructions mild Speech Pattern Coherent,Soft-Spoken Ambulation Patient Able to Ambulate Yes Ambulation Observation IP General Gait Pattern Observation Wide Based Gait,Shuffling Step ,Decrease Stride Lngth (R), Decrease Stride Lngth (L) Ambulation Distance (feet) 4 Ambulation Assistive Device Rolling Walker Ambulation Ability Moderate x 2 (50% assist) Balance Ability to Arise Able, uses arms to help Sitting Balance Leans or slides in chair Standing Balance Unsteady Dynamic Sitting Balance Ability Fair Dynamic Standing Balance Ability Poor Transfers Chair Transfer Ability Supervision/Stand by Sit to Stand Chair Transfer Ability Moderate x 2 (50% assist) MMT RLE PT MMT ABN Abnormal MMT Grade 3-/5 LLE PT MMT ABN Abnormal MMT Grade 3-/5 Rehab PT IP prob,goals,plan Problems Date of Evaluation: 07/07/22 PT IP Problems Bed Mobility,Transfers,Gait, Balance,Self care,Safety Rehab Potential Rehab Potential Fair Equipment Needs Assistive Devices
--- NOTE | 2022-07-07 12:30 | SW/DCPLANNER ---
Addendum entered by [facility] 07/09/22 13:28: [facility]. Patient will discharge today. I have updated patient's significant other. Addendum entered by [facility] 07/09/22 09:48: Per Alona arteaga [facility] patient was approved by insurance yesterday afternoon and then later in the day requested additional information (PT notes). Updated patient information is faxed and Alona stated that she would need to wait to hear back from insurance prior to accepting this patient. Alona gonzalez/ [facility] will contact me once she hears back from insurance. I will call and update patient's significant other. Patient is medically stable for discharge. Addendum entered by [facility] 07/08/22 13:17: Family is updated on plan of discharging to [facility] today. Addendum entered by [facility] 07/08/22 13:01: This patient has been accepted to [facility] SNF level of care. Patient will need a COVID swab prior to discharge. I will call and update MD, patient's nurse and family. Addendum entered by [facility] 07/08/22 10:19: I have updated patient's significant other (Angela) regarding precert at [facility]. Addendum entered by [facility] 07/08/22 07:27: Alona gonzalez/ [facility] stated that precert was started on 07/07/22 for this patient. Original Note: I spoke with patient's significant other (Angela) last week regarding placement for this patient. Angela expressed an interest in placement at [facility]: patient information has been faxed to Alona gonzalez/ [facility] today. I will continue to follow up with Alona until patient is medically stable for discharge. CM attempted to contact Angela this AM: no answer/VM left.
--- NOTE | 2022-07-07 13:07 | EXP.HP ---
History of Present Illness *Admission Date: 07/06/22 *Reason for visit:: altered mental status *History of present illness: this patient presented to the [facility] ed- per squad history obtained from family. states pt has had a decline in health, becoming combative at home. will not eat or drink. states he has had multiple falls. symptoms worse over the last week. pt d/lawrence from several weeks ago dx with brain lesions family unsure of dx. pt alert confused Patient arrives by ambulance.? History obtained from the patient's girlfriend, who lives with him.? She says that the patient had an extended hospital stay at [facility] for 3 months, last discharged on 04/17/2022.? He has had altered mental status, generalized weakness, tremor.? She says that brain lesions were found but no definitive diagnosis was made.? He has had 1 follow-up at [facility] neurology on 05/28/2022.? He was getting physical therapy at home and seemed to initially be improving but she says he is now backsliding.? He had 6 falls in the period of 1 week, and has not walked at all in 1 week.? He is not eating and is drinking very little.? He will not get up even to go to the bathroom.? He speaks in just a whisper.? He is becoming violent and combative with her.? Girlfriend states that she can no longer take care of him and has had it . [facility] Medical History Carotid artery disease Coronary arteriosclerosis Hyperlipidemia Hypertensive disorder Lesion of brain SOB (shortness of breath) Surgical History Stented coronary artery Family History (Updated 07/06/22 @ 18:54 by Monica Mauro RN) No significant family history Social History (Updated 07/06/22 @ 18:54 by Monica Mauro RN) Smoking Status: Former smoker second hand exposure: No alcohol intake: former counseling provided: provider counseling substance use type: denies use current occupational status: retired Travel in the last 8 weeks: None household members: spouse housing: house number of children: 3 current occupational exposures/hazards: No caffeine: Yes Review of Systems Review of Systems Review of systems:: pertinent systems reviewed and negative unless documented below Meds Home Medications and Allergies Home Medications Medication Instructions Recorded Confirmed Type aspirin 81 mg chewable tablet 81 mg PO DAILY HEART HEALTH 03/11/19 07/06/22 History atorvastatin 80 mg tablet 80 mg PO HS Cholesterol 05/05/22 07/06/22 History divalproex 500 mg tablet,delayed 1,000 mg PO BID seizure 05/05/22 07/06/22 History release cholecalciferol (vitamin D3) 25 1,000 unit PO DAILY Supplement 07/06/22 07/06/22 History mcg (1,000 unit) capsule levetiracetam 1,000 mg tablet 2,000 mg PO BID seizure 07/06/22 07/06/22 History metformin 500 mg tablet 500 mg PO BID Diabetes 07/06/22 07/06/22 History metoprolol succinate 50 mg 50 mg PO DAILY High blood pressure 07/06/22 07/06/22 History tablet,extended release 24 hr (Toprol XL) olanzapine 5 mg tablet 5 mg PO HS MOOD 07/06/22 07/06/22 History fluticasone 250 mcg-salmeterol 50 1 inh inhalation BID Breathing 07/07/22 07/07/22 History mcg/dose blistr powdr for problems inhalation clopidogrel 75 mg tablet See Rx Instructions .Route 07/09/22 Rx .COMPLEX #90 tabs hydrocodone 5 mg-acetaminophen 325 1 tab PO TID Pain #90 tabs 07/11/22 Rx mg tablet lacosamide 150 mg tablet 150 mg PO BID SEIZURES #180 tabs 07/17/22 Rx New Prescriptions to Start Prescriptions: Allergies Allergy/AdvReac Type Severity Reaction Status Date / Time isosorbide [From Imdur] AdvReac Mild Verified 06/25/22 10:46 Exam Data for Last 24 hours Vital signs and Labs for Last 24 Hours: Temp Pulse Resp BP Pulse Ox 98 F 66 19 126/62 96 07/07/22 08:00 07/07/22 08:00 07/07/22 08:00 07/07/22 08:00
--- NOTE | 2022-07-07 13:43 | PC.NURSE ---
ROUNDED ON PATIENT. FAMILY IS AT BEDSIDE. FAMILY ASKING ABOUT PLAN OF CARE. EDUCATED FROM ROUNDS THIS MORNING PLAN WAS TO HAVE PATIENT PLACED. FAMILY ASKING ABOUT [facility], MD SEEMED TO FEEL PATIENT WOULD BE READY FOR DISCHARGE, BEFORE WOULD HAVE A BED AVAILABLE AND THIS WAS RELAYED TO FAMILY. FAMILY IS OKAY WITH PLACEMENT TO EITHER [facility] OR [facility]. ALSO ASKING ABOUT MEDICAID AND REFERRED THEM TO FINANCE. FAMILY ALSO ASKING ABOUT MEDICATIONS FOR PARKINSON. PATIENT IS CURRENTLY ON NO MEDICATIONS AT THIS TIME. CALLED MD OFFICE AND LEFT MESSAGE ABOUT ORDERING HOME MEDS (SEIZURE MEDICATIONS, AND HEART MEDS), WELL FAMILY QUESTIONING IF PARKINSON MEDICATIONS MAY BE ORDERED. THEY STATED THEY WOULD CALL BACK AFTER SPEAKING WITH MD. EDUCATED FAMILY ON THIS
[2022-07-07 13:49] VITALS: BMI 33.3
[2022-07-07 16:00] VITALS: BP 134/50; PULSE 74; RESP 20; TEMP 36.8; O2SAT 97
--- NOTE | 2022-07-07 17:09 | PC.NURSE ---
PT IS ALERT TO PERSON AND CAN TELL STAFF HIS NAME. HE HAS BEEN FOLLOWING COMMANDS APPROPRIATELY AND IS ALERT TO HIS SURROUNDINGS. HE HAS BEEN COOPERATIVE WITH STAFF AND PLEASANTLY CONFUSED. HE HAS REQUIRED ASSISTANCE WITH EATING AND TURNING Q2HRS. ORAL INTAKE HAS BEEN FAIR. HE DID SPEND A FEW HOURS UP TO CHAIR AND PARTICIPATED WITH THERAPY. HE HAS NOT REQUIRED O2 SUPPORT. CALLED FOR UPDATE BUT STILL NO BED AVAILABLE. BED ALARM IN PLACE FOR SAFETY. CALL LIGHT WITHIN REACH.
[2022-07-07 20:00] VITALS: BP 147/75; PULSE 72; RESP 19; TEMP 36.6; O2SAT 96
[2022-07-07 20:12] LABS: POC Glucose,Bedside 140 (70-110)
--- NOTE | 2022-07-08 01:25 | PC.NURSE ---
Assumed care of this patient at this time. Report received from Ayaka Kolb RN
[2022-07-08 04:00] VITALS: BP 153/78; PULSE 67; RESP 18; TEMP 36.8; O2SAT 94
--- NOTE | 2022-07-08 05:05 | PC.NURSE ---
Pt has rested off and on this shift since this RN assumed care. Pt remains confused, with jumbled speech. Alert to self only. Pt was incontinent per bladder and bowel, and was digging in his brief. Pt received a total bath and bed change. Unable to answer most questions. Pt is being turned Q2. Bruising noted to left outer buttock. Pt propped on sides with pillows when turned. Remains on RA. VSS. No acute changes this shift. Will continue to monitor.
[2022-07-08 07:02] LABS: Basophils # 0.1 K/mm3 (0-0.2); Basophils % 1.2 % (0.1-2.0); Eosinophils # 0.3 K/mm3 (0.0-0.4); Eosinophils % 5.7 % (0.1-12.0); Hematocrit 41.6 % (42.0-52.0); Hemoglobin 13.6 g/dL (14.1-18.0); Lymphocytes # 1.4 K/mm3 (0.7-4.5); Lymphocytes % 27.3 % (10-50); Mean Corpuscular HGB Conc 32.6 g/dL (31.8-35.4); Mean Corpuscular Hemoglobin 30.6 pg (27.0-31.2); Mean Corpuscular Volume 93.9 fl (80-94); Mean Platelet Volume 8.9 fl (7.4-10.4); Monocytes # 0.6 K/mm3 (0.1-1.0); Monocytes % 10.9 % (1.7-9.3); Neutrophils # 2.8 K/mm3 (1.8-7.8); Neutrophils % 54.8 % (37.0-80.0); Platelet Count 95 K/mm3 (142-424); Red Blood Count 4.44 M/mm3 (4.60-6.20); Red Cell Distribution Width 13.2 % (11.5-17.5); White Blood Count 5.1 K/mm3 (4.8-10.8)
[2022-07-08 07:13] LABS: Anion Gap 12.4 mEq/L (5-15); Blood Urea Nitrogen 27 mg/dl (9-20); Calcium 8.6 mg/dl (8.4-10.2); Carbon Dioxide 28 mmol/L (22.0-30.0); Chloride 105 mmol/L (98-107); Creatinine Clearance Estimated 98 mL/min (50-200); Estimated Glomerular Filt Rate 134 ml/min (>60); GFR (African American) 163 ML/MIN (>60); Glucose 104 mg/dl (74-100); Potassium 4.4 mmoL/L (3.5-5.1); Sodium 141 mmol/L (136-145)
[2022-07-08 08:00] VITALS: BP 149/88; PULSE 76; RESP 17; TEMP 36.4; O2SAT 97
--- NOTE | 2022-07-08 09:48 | EXP.ACUTE.PN ---
Subjective *Date: 07/08/22 *Time: 09:48 Medical Exam Vital signs and Labs for Last 24 Hours: Temp Pulse Resp BP Pulse Ox 98.3 F 67 18 153/78 H 94 L 07/08/22 04:00 07/08/22 04:00 07/08/22 04:00 07/08/22 04:00 07/08/22 04:00 Laboratory Results - last 24 hr 07/07/22 20:02: POC Glucose 140 H 07/08/22 06:50: WBC 5.1 D, RBC 4.44 L, Hgb 13.6 L, Hct 41.6 L, MCV 93.9, MCH 30.6, MCHC 32.6, RDW 13.2, Plt Count 95 L, MPV 8.9, Neut % (Auto) 54.8, Lymph % (Auto) 27.3, [place] % (Auto) 10.9 H, Eos % (Auto) 5.7, Baso % (Auto) 1.2, Neut # (Auto) 2.8, Lymph # (Auto) 1.4, [place] # (Auto) 0.6, Eos # (Auto) 0.3, Baso # (Auto) 0.1 07/08/22 06:50: Sodium 141, Potassium 4.4, Chloride 105, Carbon Dioxide 28, Anion Gap 12.4, BUN 27 H, Creatinine 0.60 L, Estimated Creat Clear 98, Estimated GFR 134, Est GFR ( Amer) 163, Glucose 104 H, Calcium 8.6 I & O for Labs for Last 24 Hours: Intake & Output 07/05/22 07/06/22 07/07/22 07/08/22 23:59 23:59 23:59 23:59 Intake Total 3535 / 1001 Output Total 0 / 0 0 / 0 Balance 3535 / 3535 1001 / 1001 Weight 200 lb 6 oz 212 lb 2.766 oz
[2022-07-08 13:15] LABS: Coronavirus 19, PCR Not Detected (NotDetected); Influenza A, PCR Not Detected (NotDetected); Influenza B, PCR Not Detected (NotDetected)
--- NOTE | 2022-07-08 13:15 | EXP.DC.SUM ---
General Admission date:: 07/06/22 Discharge date: 07/08/22 HPI HPI HPI: this patient presented to the [facility] ed- per squad history obtained from family. states pt has had a decline in health, becoming combative at home. will not eat or drink. states he has had multiple falls. symptoms worse over the last week. pt d/lawrence from several weeks ago dx with brain lesions family unsure of dx. pt alert confused Patient arrives by ambulance.? History obtained from the patient's girlfriend, who lives with him.? She says that the patient had an extended hospital stay at [facility] for 3 months, last discharged on 04/17/2022.? He has had altered mental status, generalized weakness, tremor.? She says that brain lesions were found but no definitive diagnosis was made.? He has had 1 follow-up at [facility] neurology on 05/28/2022.? He was getting physical therapy at home and seemed to initially be improving but she says he is now backsliding.? He had 6 falls in the period of 1 week, and has not walked at all in 1 week.? He is not eating and is drinking very little.? He will not get up even to go to the bathroom.? He speaks in just a whisper.? He is becoming violent and combative with her.? Girlfriend states that she can no longer take care of him and has had it . Hospital Course Hospital Course Hospital Course: 56-year-old male patient admitted with increasing weakness and altered mental status. Patient had a delayed stay at [facility] family is unable to provide specific details but do report brain lesions . Lab work on admission essentially normal 07/06/[address]: FINDINGS: Brain: Age-related atrophy and chronic white matter ischemic changes, with no evidence of an acute intracranial abnormality. No hemorrhage, mass effect or midline shift. Cerebral ventricles: No ventriculomegaly. Paranasal sinuses: Mild mucosal thickening noted within the maxillary sinuses. Mastoid air cells: Visualized mastoid air cells are well aerated. Bones/joints: Postoperative changes of the right posterior parietal bone. Soft tissues: No acute changes IMPRESSION: 1. Age-related atrophy and chronic white matter ischemic changes, with no evidence of an acute intracranial abnormality. 2. No hemorrhage, mass effect or midline shift. Electronically signed by Sebastián Ribera DO 07/06/2022 chest x-ray: FINDINGS: Lungs: Unremarkable. No consolidation. Pleural spaces: Unremarkable. No pleural effusion. No pneumothorax. Heart/Mediastinum: Unremarkable. No cardiomegaly. Bones/joints: Unremarkable. IMPRESSION: No acute findings. Electronically signed by Sebastián Ribera DO Ammonia level 12 Keppra level 101 (100 high end of normal) 66-year-old male patient sitting up in bed resting quietly, he denies any chest pain, shortness of breath, or other needs. Is alert to name and follows simple commands. Discussed discharge to [facility]dc, he is in agreement with this. Discharged to [facility] today Exam Data for Last 24 hours Vital signs and Labs for Last 24 Hours: Temp Pulse Resp BP Pulse Ox 97.5 F L 76 17 149/88 H 97 07/08/22 08:00 07/08/22 08:00 07/08/22 08:00 07/08/22 08:00 07/08/22 08:00 Laboratory Results - last 24 hr 07/07/22 20:02: POC Glucose 140 H 07/08/22 06:50: WBC 5.1 D, RBC 4.44 L, Hgb 13.6 L, Hct 41.6 L, MCV 93.9, MCH 30.6, MCHC 32.6, RDW 13.2, Plt Count 95 L, MPV 8.9, Neut % (Auto) 54.8, Lymph % (Auto) 27.3, [place] % (Auto) 10.9 H, Eos % (Auto) 5.7, Baso % (Auto) 1.2, Neut # (Auto) 2.8, Lymph # (Auto) 1.4, [place] # (Auto) 0.6, Eos # (Auto) 0.3, Baso # (Auto) 0.1 07/08/22 06:50: Sodium 141, Potassium 4.4, Chloride 105, Carbon Dioxide 28, Anion Gap 12.4, BUN 27 H, Creatinine 0.60 L, Estimated Creat Clear 98, Estimated GFR 134, Est GFR ( Amer) 163, Glucose 104 H, Calcium 8.6 I & O for Last 24 hours: Intake & Output 07/05/22 07/06/22 07/07/22 07/08/22 23:59 23:59 23:59 23:59 Intake
--- NOTE | 2022-07-08 13:37 | PC.NURSE ---
ROUNDED ON PATIENT. FAMILY AT BEDSIDE. WENT OVER MEDICATIONS WITH THEM. AWAITING PRECERT AT [facility]. NO SPECIFIC QUESTIONS. ENCOURAGED THEM TO RING OUT NEEDED. CHAIR ALARM ON. CALL LIGHT WITHIN REACH. PATIENT UP IN CHAIR FEEDING SELF WELL. ENCOURAGED HIM TO ASK FOR ASSISTANCE NEEDED (WILL ALSO RELAY TO STAFF TO CHECK DURING MEALS IF HE MAY NEED ASSISTANCE WITH FEEDING.)
--- NOTE | 2022-07-08 14:42 | PC.NURSE ---
Addendum entered by Antonieta Mendoza RN 07/08/22 18:21: Called [facility] spoke with Roseanne they are still waiting for email from insurance approval; patient family aware Addendum entered by Antonieta Mendoza RN 07/08/22 16:13: Family here, called report to [facility] and they recvd notice from insurance company that PT notes were not sufficient; Delmy in CM and PT notified. Original Note: discharge delayed - patient waiting on ride
[2022-07-08 16:49] LABS: POC Glucose,Bedside 123 (70-110)
--- NOTE | 2022-07-08 17:29 | PC.NURSE ---
Patient VSS, has been up to chair since lunch, pending transfer to [facility]. Has episodes of confusion, is Alert x 4. No s/s of acute distress noted, call light within reach, bed at lowest level for safety; will continue to monitor.
[2022-07-08 20:00] VITALS: BP 136/72; PULSE 68; RESP 18; TEMP 36.6; O2SAT 97
--- NOTE | 2022-07-09 02:46 | PC.NURSE ---
Updated [facility] on pt status and care at this time. No beds available.
[2022-07-09 04:00] VITALS: BP 125/67; PULSE 59; RESP 16; TEMP 36.4; O2SAT 99
[2022-07-09 05:48] VITALS: BMI 32.2
[2022-07-09 06:26] LABS: POC Glucose,Bedside 100 (70-110)
[2022-07-09 06:34] LABS: Eosinophils # 0.4 K/mm3 (0.0-0.4); Eosinophils % 9.4 % (0.1-12.0); Hematocrit 40.9 % (42.0-52.0); Lymphocytes # 1.7 K/mm3 (0.7-4.5); Lymphocytes % 45.6 % (10-50); Mean Corpuscular HGB Conc 31.9 g/dL (31.8-35.4); Mean Corpuscular Hemoglobin 30.4 pg (27.0-31.2); Mean Corpuscular Volume 95.4 fl (80-94); Mean Platelet Volume 9.6 fl (7.4-10.4); Monocytes # 0.4 K/mm3 (0.1-1.0); Monocytes % 11.9 % (1.7-9.3); Neutrophils # 1.2 K/mm3 (1.8-7.8); Neutrophils % 32.1 % (37.0-80.0); Platelet Count 106 K/mm3 (142-424); Red Blood Count 4.29 M/mm3 (4.60-6.20); Red Cell Distribution Width 13.5 % (11.5-17.5); White Blood Count 3.7 K/mm3 (4.8-10.8)
[2022-07-09 06:42] LABS: Anion Gap 11.8 mEq/L (5-15); Blood Urea Nitrogen 18 mg/dl (9-20); Calcium 8.4 mg/dl (8.4-10.2); Carbon Dioxide 29 mmol/L (22.0-30.0); Chloride 104 mmol/L (98-107); Creatinine Clearance Estimated 94 mL/min (50-200); Estimated Glomerular Filt Rate 134 ml/min (>60); GFR (African American) 163 ML/MIN (>60); Glucose 109 mg/dl (74-100); Potassium 3.8 mmoL/L (3.5-5.1); Sodium 141 mmol/L (136-145)
--- NOTE | 2022-07-09 07:43 | PC.NURSE ---
Pt alert x1 through majority of shift. Pt has been very tearful and depressive during shift. No c/o voiced to staff. Pt q2 turned. Call light within reach.
[2022-07-09 08:00] VITALS: BP 112/67; PULSE 63; RESP 16; TEMP 36.4; O2SAT 96
[2022-07-09 12:11] LABS: POC Glucose,Bedside 103 (70-110)
--- NOTE | 2022-07-09 14:49 | PC.NURSE ---
PT TAKEN DOWN TO CAR BY STAFF
--- NOTE | 2022-07-10 14:00 | CARE MANAGER ---
Contacted [facility]. They state patient is doing well and deny and questions or concerns. DARIO Roberts
[2022-07-10 15:36] LABS: Levetiracetam (Keppra) 86.7 ug/mL (10.0-40.0)
== END 2022-07-09 14:50 ==
LOC: ER 13:40 → 2ND 17:13
PROVIDERS: Nurse Practitioner Family; Admitting Provider Emergency Medicine; Emergency Provider Emergency Medicine; PCP Emergency Medicine; Visit Provider Emergency Medicine
DX: G93.40 Encephalopathy, unspecified (principal); E86.0 Dehydration; I25.10 Atherosclerotic heart disease of native coronary artery without angina pectoris; E78.5 Hyperlipidemia, unspecified; I10 Essential (primary) hypertension; Z95.5 Presence of coronary angioplasty implant and graft; I65.23 Occlusion and stenosis of bilateral carotid arteries; G47.33 Obstructive sleep apnea (adult) (pediatric); Z20.822 Contact with and (suspected) exposure to COVID-19; E11.9 Type 2 diabetes mellitus without complications; Z79.84 Long term (current) use of oral hypoglycemic drugs; R29.6 Repeated falls; Z79.899 Other long term (current) drug therapy; R45.6 Violent behavior; F09 Unspecified mental disorder due to known physiological condition
CPT/HCPCS: G0378; 36415; 70450; 71045; 80048; 80053; 80164; 80177; 81001; 82140; 82550; 82962; 85025; 85651; 86140; 93005; 97116; 97162; 97166; 97530; 97535; 99285; C9803; U0003; U0005

== ENCOUNTER → 2022-08-22 10:15 | Outpatient (CLI) | payer MEDICARE, SELFPAY ==
--- NOTE | 2022-08-22 10:16 | MR_ITS ---
FINAL REPORT CLINICAL HISTORY: Suspected PRES, abnormal brain MRI, 2021. history brain biopsy March 2022. headache, dizziness and blurred vision. COMPARISON: January 2022 FINDINGS: Multiplanar MR imaging of the brain was performed without contrast. There is age-appropriate atrophy. There is new right parietal encephalomalacia. There is worsening periventricular increased T2 signal greatest in the right parietal region that may represent worsening chronic ischemic/gliotic change or PRES. There is no evidence of intracranial hemorrhage or mass. No abnormal ventricular dilatation is identified. No abnormal extra-axial fluid collection is seen. No abnormality is seen on the diffusion weighted images. The posterior fossa and brainstem are unremarkable. Normal major vessel vascular flow voids are seen. There is presumed postoperative change of the right skull. IMPRESSION: Worsening periventricular increased T2 signal may represent worsening chronic ischemic/gliotic change or PRES. Age-appropriate atrophy. No acute intracranial abnormality. Reviewed, Interpreted and Dictated by Giles Kaufman III, MD Transcribed by Aryan Arndt Authenticated and . [facility]
== END ==
PROVIDERS: PCP Specialist; Visit Provider Specialist
DX: G93.49 Other encephalopathy (principal); R56.9 Unspecified convulsions; R90.89 Other abnormal findings on diagnostic imaging of central nervous system
CPT/HCPCS: 70551

== ENCOUNTER 2022-09-24 20:15 | Emergency (ER) | payer MEDICARE, SELFPAY ==
[2022-09-24 20:15] VITALS: BP 110/59; PULSE 72; RESP 18; TEMP 37.3; O2SAT 97; BMI 29.6
--- NOTE | 2022-09-24 20:15 | ECG_ITS ---
APPROVED REPORT Exam: Resting ECG HR:71 bpm ECG Measurements Heart Rate 71 AXES PA 150 P 67 QRSd 89 QRS 14 QT 360 T 58 QTc 382 Conclusion SINUS RHYTHM NORMAL ECG UNCONFIRMED REPORT Electronically signed by : Malcolm Rodriguez MD 09/25/2022 20:17:11
[2022-09-24 20:30] VITALS: BMI 31.0
--- NOTE | 2022-09-24 20:44 | XR_ITS ---
PROCEDURE INFORMATION: Exam: XR Chest Exam date and time: 09/24/2022 8:59 PM Age: 67 years old Clinical indication: Other: AMS; Additional info: Per protocal TECHNIQUE: Imaging protocol: Radiologic exam of the chest. Views: 1 view. COMPARISON: CR XR CHEST PORTABLE 07/06/2022 3:09 PM FINDINGS: Lungs: No consolidation. Pleural spaces: No pneumothorax. Heart/Mediastinum: No cardiomegaly. Bones/joints: No acute abnormality. IMPRESSION: No acute findings.
[2022-09-24 20:48] LABS: Influenza A, PCR Not Detected (NotDetected); Influenza B, PCR Not Detected (NotDetected)
[2022-09-24 20:48] LABS: Basophils % 0.3 % (0.1-2.0); Eosinophils # 0.1 K/mm3 (0.0-0.4); Eosinophils % 1.3 % (0.1-12.0); Hematocrit 42.7 % (42.0-52.0); Lymphocytes # 1.1 K/mm3 (0.7-4.5); Lymphocytes % 18.6 % (10-50); Mean Corpuscular HGB Conc 32.7 g/dL (31.8-35.4); Mean Corpuscular Hemoglobin 30.3 pg (27.0-31.2); Mean Corpuscular Volume 92.7 fl (80-94); Mean Platelet Volume 8.2 fl (7.4-10.4); Monocytes # 0.3 K/mm3 (0.1-1.0); Monocytes % 5.3 % (1.7-9.3); Neutrophils # 4.5 K/mm3 (1.8-7.8); Neutrophils % 74.5 % (37.0-80.0); Platelet Count 172 K/mm3 (142-424); Red Blood Count 4.61 M/mm3 (4.60-6.20); Red Cell Distribution Width 15.1 % (11.5-17.5)
--- NOTE | 2022-09-24 20:56 | PC.NURSE ---
during inital assessment pt had dried fecal matter that on bottom upon further inspection the coccyx was red and a skin barrier was placed
[2022-09-24 20:59] LABS: C-Reactive Protein 49.5 mg/L (0-4)
[2022-09-24 21:03] LABS: ABG Base Excess 1.1 mmol/L (-2.4-2.3); ABG HCO3 25.8 mmhg (22.0-26.0); ABG Oxygen Saturation 95 % (90-100); ABG PCO2 41.7 mmhg (35.0-45.0); ABG PH 7.41 mmol/L (7.35-7.45); ABG PO2 79.3 mmhg (80-100); ABG TCO2 27.1 mmhg (23-27)
[2022-09-24 21:04] LABS: Microscopic, Urine URINE MICROSCOPIC (MICROSCOPIC)
[2022-09-24 21:04] LABS: Allen's Test Acceptable; Oxygen 21 %; Source Left Brachial
[2022-09-24 21:07] LABS: Chloride 104 mmol/L (98-107); Potassium 4.6 mmoL/L (3.5-5.1); Sodium 140 mmol/L (136-145)
[2022-09-24 21:10] LABS: Alanine Aminotransferase 20 U/L (12-78); Albumin Level 3.9 g/dl (3.5-5.0); Albumin/Globulin Ratio 1.3 (1.1-1.8); Alkaline Phosphatase 58 U/L (38-126); Anion Gap 14.6 mEq/L (5-15); Aspartate Amino Transferase 31 U/L (17-59); Bilirubin,Total 0.2 mg/dl (0.2-1.3); Blood Urea Nitrogen 29 mg/dl (9-20); Carbon Dioxide 26 mmol/L (22.0-30.0); Creatinine Clearance Estimated 90 mL/min (50-200); Estimated Glomerular Filt Rate 134 ml/min (>60); GFR (African American) 162 ML/MIN (>60); Globulin 3.1 g/dL (1.3-3.2)
[2022-09-24 21:11] LABS: Calcium 9.8 mg/dl (8.4-10.2); Glucose 95 mg/dl (74-100)
[2022-09-24 21:18] LABS: Appearance,Urine CLEAR (Clear); Blood, Urine Negative (Negative); Glucose,Urine (UA) Negative (Negative); Ketones,Urine 1+ (Negative); Leukocyte Esterase,Urine Negative (Negative); Nitrate,Urine Negative (Negative); Protein,Urine 1+ (Negative); Specific Gravity, Urine >= 1.030 (1.005-1.030)
[2022-09-24 21:18] LABS: Coronavirus 19, PCR Detected (NotDetected)
[2022-09-24 21:24] LABS: Bilirubin,Urine Negative (Negative); Color,Urine Dark Yellow (Yellow)
[2022-09-24 21:32] LABS: Bacteria,Urine 1+ /lpf; Mucus,Urine 1+ /lpf; RBC,Urine Occasional #/hpf (0-3); WBC,Urine Occasional #/hpf (0-3)
--- NOTE | 2022-09-24 22:04 | HMH.EDWEAK ---
Discharge Plan Disposition Patient Disposition: Home, Self-Care Chief Complaint: Weakness Prescriptions Prescriptions: No Action atorvastatin 80 mg tablet 80 mg PO HS divalproex 500 mg tablet,delayed release (DR/EC) 1,000 mg PO BID hydrocodone-acetaminophen 5-325 mg tablet 1 tab PO TID Qty: 90 0RF metoprolol tartrate 25 mg tablet 50 mg PO DAILY lacosamide 150 mg tablet 150 mg PO BID Qty: 180 1RF aspirin 81 MG tablet,chewable 81 mg PO DAILY clopidogrel 75 mg tablet 75 mg PO DAILY Rx Instructions: TAKE ONE TABLET BY MOUTH EVERY DAY meclizine 25 mg tablet 25 mg PO TID metformin 500 mg tablet 500 mg PO BID olanzapine 5 mg tablet 5 mg PO HS cholecalciferol (vitamin D3) 25 mcg (1,000 unit) capsule 1,000 unit PO DAILY levetiracetam 1,000 mg tablet 2,000 mg PO BID fluticasone propion-salmeterol 250-50 mcg/dose blister with device 1 inh INHALATION BID Referrals Follow up/Referrals: Provider,Referral, MD [Primary Care Provider] - See instructions Clinical Impressions Clinical Impression: COVID-19, Weakness, Adverse effects of medication Instructions Patient Instructions: DI for COVID-19 (Suspected or Confirmed ) Discharge ED Provider: Kaveh Ryan Weakness HPI General Chief complaint: Weakness Stated complaint: altered mental Time Seen by Provider: 09/24/22 22:04 Mode of Arrival: EMS Source of Information: EMS Limitations: No Limitations Description of Symptoms (Recalled from ER Triage Doc. by RN): per Ems pt family stated the pt wont help himself and they are unable to care for him. the pt family states that he came home from [facility] facility because insurance ran out and now he is declining again. History of Present Illness HPI Narrative: [facility] - this pt has complex hx with progressive neuro sx and general decline over the last yr with no def dx - has been seen by neuro at and dr avila - pt with recent admit and stay at [facility] - pt with no fever or vomiting Complaint: generalized weakness Onset (ago): day(s) Duration: intermittent Location: generalized Migration: none Severity: moderate Associated symptoms: denies other symptoms Related Data Home Medications Medication Instructions Recorded Confirmed aspirin 81 mg chewable tablet 81 mg PO DAILY HEART HEALTH 03/11/19 09/25/22 atorvastatin 80 mg tablet 80 mg PO HS Cholesterol 05/05/22 09/25/22 divalproex 500 mg tablet,delayed 1,000 mg PO BID seizure 05/05/22 09/25/22 release cholecalciferol (vitamin D3) 25 1,000 unit PO DAILY Supplement 07/06/22 09/25/22 mcg (1,000 unit) capsule levetiracetam 1,000 mg tablet 2,000 mg PO BID seizure 07/06/22 09/25/22 metformin 500 mg tablet 500 mg PO BID Diabetes 07/06/22 09/25/22 olanzapine 5 mg tablet 5 mg PO HS MOOD 07/06/22 09/25/22 fluticasone 250 mcg-salmeterol 50 1 inh inhalation BID Breathing 07/07/22 09/25/22 mcg/dose blistr powdr for problems inhalation metoprolol tartrate 25 mg tablet 50 mg PO DAILY htn 08/11/22 09/25/22 clopidogrel 75 mg tablet 75 mg PO DAILY antiplatelet 09/25/22 09/25/22 meclizine 25 mg tablet 25 mg PO TID dizziness 09/25/22 09/25/22 Previous Rx's Medication Instructions Recorded hydrocodone 5 mg-acetaminophen 325 1 tab PO TID Pain #90 tabs 08/05/22 mg tablet lacosamide 150 mg tablet 150 mg PO BID SEIZURES #180 tabs 08/14/22 Allergies Allergy/AdvReac Type Severity Reaction Status Date / Time isosorbide [From Imdur] AdvReac Mild Verified 08/20/22 13:31 [facility] Disclaimer: The information contained in this section may have been updated after the patient was seen, as this information can be updated by other users. Medical History Abdominal pain Acute exacerbation of chronic low back pain Acute renal failure CAD (coronary artery disease) Carotid artery dis
[2022-09-24 22:19] VITALS: BP 100/56; PULSE 69; RESP 18; O2SAT 98
[2022-09-24 22:30] VITALS: BP 101/64; PULSE 67; RESP 20; O2SAT 97
[2022-09-24 22:36] VITALS: BP 95/62; PULSE 66; RESP 18; O2SAT 96
[2022-09-24 22:51] LABS: Ammonia 9 umol/L (9-30)
[2022-09-24 22:51] LABS: Lactic Acid 1.3 mmol/L (0.7-2.1)
[2022-09-24 23:00] VITALS: BP 101/60; PULSE 65; RESP 17; O2SAT 97
[2022-09-24 23:31] VITALS: BP 129/85; PULSE 70; RESP 18; O2SAT 100
--- NOTE | 2022-09-24 23:57 | PC.NURSE ---
Called [facility] in [place] requesting discharge summary for patient.
[2022-09-25] VITALS (36 sets, daily range): BP systolic 87–136; BP diastolic 51–85; PULSE 58–89; RESP 16–20; TEMP 36.8; O2SAT 93–100
[2022-09-25 00:02] LABS: Valproic Acid, (Depakene) 114.1 ug/ml (50-100)
--- NOTE | 2022-09-25 03:05 | PC.NURSE ---
Called [facility] for release of medical record at this time
--- NOTE | 2022-09-25 03:19 | PC.NURSE ---
Spoke with nurseYolie, at [facility] regarding patients home medication list at discharged. Per nurse, they are unable to access patients discharge records at night and we should call back after 0800 to confirm the patients medication list. Yolie was able to review the medications that the patient was [facility] from [facility] on based on the discharge summary that they do have access to.
--- NOTE | 2022-09-25 07:21 | PC.NURSE ---
Patient sitting up eating breakfast at this time in tabby-chair. call light within reach
--- NOTE | 2022-09-25 07:46 | SW/DCPLANNER ---
Addendum entered by Shari Conway 09/25/22 14:31: Patient will return home from ED. I have asked Alona gonzalez/ [facility] to please follow up with patient once insurance provides skilled days information. Addendum entered by Shari Conway 09/25/22 13:11: [facility] is currently speaking w/ patient's insurance and I will update me regarding skilled days. Addendum entered by Shari Conway 09/25/22 11:25: All patient information has been faxed to Alona gonzalez/ [facility]. I have updated patient's family that due to patient recently leaving two facilities and not pursing LTC when offered placement may be difficult. I will continue to follow up with patient, family and [facility]. Original Note: Received notification from the ED that this patient is medically stable for discharge. Patient currently resides at home with his girlfriend after a short term stay SNF level of care at [facility]. PT/OT will evaluate this patient in ED. I have attempted to contact patient's S.O. w/ no answer. I will begin searching for placement from ED on this patient.
--- NOTE | 2022-09-25 07:57 | PC.NURSE ---
Pt finsihed with his breakfast tray; he ate about 50%. He is resting at this time
--- NOTE | 2022-09-25 08:06 | PC.NURSE ---
Neha with care management at , to inform patient they are gonna sent therapy to the ER to work with him and he can hopefully be discharged.
--- NOTE | 2022-09-25 08:21 | PC.NURSE ---
speaking with family about POC
--- NOTE | 2022-09-25 09:40 | PC.NURSE ---
PT/OT at the bedside
--- NOTE | 2022-09-25 11:13 | HMH.PTEV ---
Physical Therapy Evaluation Rehab PT IP Evaluation Start: 09/25/22 07:43 Freq: ONCE Status: Active Protocol: Document 09/25/22 10:00 PHORNE (Rec: 09/25/22 11:13 PHORNE [id number]) Subjective/History History History 67 yowm adm to [facility] with generalized weaknes. He reports he lives with significant other, 1-2 steps to enter the home and he ambulates with a RW independently at baseline. Over the past 2-3 days he reports feeling progressively weaker. He does report that generally his significant other assists him with all ADLs. Subjective Subjective Currently he has no c/o. Rehab PT IP Eval Objective Appearance Patient Behavior Appropriate Patient Orientation Person,Place,Time Difficulty following instructions none Speech Pattern Clear Ambulation Patient Able to Ambulate Yes Ambulation Observation IP General Gait Pattern Observation Shuffling Step Ambulation Distance (feet) 30 Ambulation Assistive Device None Ambulation Ability Contact Guard/Hand Hold Balance Ability to Arise Able, uses arms to help Sitting Balance Steady, safe Standing Balance Steady, wide stance Dynamic Sitting Balance Ability Good Dynamic Standing Balance Ability Fair Transfers Chair Transfer Ability Contact Guard/Hand Hold Sit to Stand Bed Transfer Ability Contact Guard/Hand Hold Sit to Stand Chair Transfer Ability Contact Guard/Hand Hold ROM All Extremities PT ROM Status WFL MMT All Extremities PT MMT WFL Rehab PT IP prob,goals,plan Problems Date of Evaluation: 09/25/22 PT IP Problems Transfers,Gait,Self care Rehab Potential Rehab Potential Good Plan PT Intervention Plan Transfers,Gait,Self care, Therapeutic Exercise PT Plan Frequency Daily Duration LOS Discharge Goals Bed Transfer Ability Supervision/Stand by Sit to Stand Chair Transfer Ability Supervision/Stand by Ambulation Assistive Device Rolling Walker Ambulation Distance (feet) 40 Discharge Plan PT Discharge Plan Pt currently is most appropriate for rehab placement, but could return home if he has family assist
--- NOTE | 2022-09-25 11:55 | PC.NURSE ---
pt continues resting in the chair with no needs voiced. care management working on finding placement for pt
--- NOTE | 2022-09-25 12:00 | PC.NURSE ---
son at the bedside. requesting to speak to care management. amanda dickinson called to the bedside
--- NOTE | 2022-09-25 12:00 | HMH.OTEV ---
OT Inpatient Evaluation Rehab OT IP Evaluation Start: 09/25/22 07:44 Freq: ONCE Status: Complete Protocol: Document 09/25/22 11:07 KATE (Rec: 09/25/22 12:00 KATE [id number]) Rehab OT IP Assessment Subjective History per Ems pt family stated the pt wont help himself and they are unable to care for him. the pt family states that he came home from [facility] nursing facility because insurance ran out and now he is declining again. History of Present Illness HPI Narrative: pt with recent admit at [facility] with weakness - this pt has complex hx with progressive neuro sx and general decline over the last yr with no def dx - has been seen by neuro at and dr avila - pt with recent admit and stay at [facility] - pt with no fever or vomiting. Per CM, Patient has been a short term patient at SNF 2-3 different times for therapy and once insurance stays are over, Patient is recommended to be placed buttermaker continuous churn and patient refuses to be buttermaker continuous churn in a facility and returns home. Family has difficulty per notes to provide care for patient. Patient unable to provide accurate PLOF hx at this time with ADLs and fx'l mobility tasks. Subjective I can try to stand. Instructed Patient on proper hand and foot placement to complete sit->stand transfer requiring Mod/Min A. Patient demonstrated fair+ dynamic standing balance with needing support to prevent fall risk. Objective Patient Orientation Person,Name,Year Upper Extremity Gross ROM WFL Transfer Training Sit/Stand Transfer Assist Level Moderate x 1 (50% assist) Chair Transfer Ability Moderate x 1 (50% assist)
--- NOTE | 2022-09-25 12:03 | PC.NURSE ---
amanda dickinson at the bedside
--- NOTE | 2022-09-25 13:12 | PC.NURSE ---
SO at the bedside with pt
--- NOTE | 2022-09-25 13:20 | PC.NURSE ---
DARIO Martinez took patient his lunch tray. SO at BS assisting patient
--- NOTE | 2022-09-25 14:38 | PC.NURSE ---
spoke with patient and family who is agreeable to care managements plan. pt is to be d/c home and [facility] for [facility].
[2022-09-29 19:20] LABS: Levetiracetam (Keppra) 72.3 ug/mL (10.0-40.0)
== END 2022-09-25 15:10 | disposition home or self-care (01) ==
PROVIDERS: Emergency Provider Emergency Medicine
DX: U07.1 COVID-19 (principal); T50.905A Adverse effect of unspecified drugs, medicaments and biological substances, initial encounter; Z79.82 Long term (current) use of aspirin; Z79.899 Other long term (current) drug therapy; Z79.84 Long term (current) use of oral hypoglycemic drugs; Z88.8 Allergy status to other drugs, medicaments and biological substances; J44.9 Chronic obstructive pulmonary disease, unspecified; I25.10 Atherosclerotic heart disease of native coronary artery without angina pectoris; I11.0 Hypertensive heart disease with heart failure; I50.9 Heart failure, unspecified; E78.5 Hyperlipidemia, unspecified; Z95.5 Presence of coronary angioplasty implant and graft; G47.33 Obstructive sleep apnea (adult) (pediatric)
CPT/HCPCS: 71045; 80053; 80164; 80177; 81001; 82140; 82803; 83605; 85025; 86140; 87040; 93005; 96365; 96366; 99284; C9803; U0003; U0005

== ENCOUNTER 2022-12-24 14:00 | Outpatient (RCR) | payer MEDICARE, SELFPAY ==
--- NOTE | 2022-11-05 11:46 | HMH.PTOPEV ---
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 Pt reports he was hospitalized at for ~3 months due to seizures and brain lesions and was mostly bedridden. Pt also reports noted weakness of the left side of his body since but is unsure if he had a stroke. Pt denies visual changes but his girlfriend states in the hospital he was having issues with peripheral vision of the left eye. Pt reports he continues to followup with neurology and has an appointment in January and he also sees a doctor for epilepsy in February. Pt's girlfriend reports when he has seizures his only symptom is severe headache. Pt's caregiver also reports he was having short-term memory issues but that has improved. Pt's girlfriend reports tremors have improved as well. Pt states he went to [facility] for rehab after his hospital stay but after ~1 week he returned to for further health issues. Pt states he has had home health OT/PT therapy since. Pt reports he was walking independently without a walker prior to these issues but uses it at all times now. Pt reports he has had 6-7 falls within the last year mostly at night time. Pt reports he had had multiple head/neck
--- NOTE | 2022-12-02 14:37 | HMH.RHREAS ---
Rehab Reassessment Rehab OP Re-assessment Start: 12/02/22 13:01 Freq: Status: Active Protocol: Document 12/02/22 13:05 ADDISONOVIDIO (Rec: 12/02/22 14:36 LYN [id number]) E-signed By Alona Jacobson PT Rehab Re-assessment Subjective Subjective Pt reports he feels that his strength and balance are improving with PT. Pt denies recent falls but states he still gets tired with prolonged walking. Pt reports he also continues to get dizzyheaded a lot. Pt reports this occurs in various positions such as sitting, standing, in the car and performing transfers and is often accompanied by feeling nauseous. Pt reports when he gets dizzy it lasts for awhile before it calms down. Pt's caregiver states he saw Dr. Toscano yesterday who decreased the dosage of one of his seizure medications. Objective Objective Notes BP: 122/78 mmHg taken seated in R arm during dizzy spell Special tests: oculomotor testing reproduced symptoms of dizziness/nausea RLE MMT: 5/5 grossly, LLE: 4+/ 5 grossly TU without AD Assessment Progress Assessment Progressing as Expected Assessment Notes Pt has attended 5 PT visits consisting of aerobic exercise , LE strengthening, and balance/proprioception training with good tolerance. Pt demonstrated improved TUG score and LE MMT this date compared to initial evaluation . Due to increased subjective complaint of dizziness per pt, oculomotor testing was performed causing repordiction of symptoms therefore pt was provided with written/ illustrated instructions of habituation exercises to incorporate into HEP whi
== END 2022-12-24 14:05 | disposition home or self-care (01) ==
LOC: PT 14:00
PROVIDERS: PCP Emergency Medicine; Visit Provider Emergency Medicine
DX: R53.1 Weakness (principal); W19.XXXA Unspecified fall, initial encounter
CPT/HCPCS: 97110; 97112; 97163; 97164; 97530

== ENCOUNTER 2022-12-24 15:00 | Outpatient (RCR) | payer MEDICARE, SELFPAY ==
--- NOTE | 2022-11-10 16:52 | HMH.OTOPEV ---
OT Inpatient Evaluation Rehab OT Outpatient Eval Start: 11/10/22 16:39 Freq: Status: Active Protocol: Document 11/10/22 16:39 KATE (Rec: 11/10/22 16:52 DEEPTHICHEMA [id number]) E-signed By Monika Persaud, OT Outpatient Therapy Subjective History Subjective History 67 year old male referred to skilled OP OT services for L shld weakness and limited AROM . present during initial evaluation this date and verbalize that patient injured his L shld back in late summer after falling out of the bed. Patient has a hx of falling at home. stated that patient has been in and out of the hosptial at last year for lesion in the brain. Patient has showned a significant decline with fx'l mobility and ADLs with needing increase assistance with drsg and bathing vs being independent 2* pain and limited AROM. Patient verbalize having numbness and tingling intermitted down the left hand. Patient is currently seeing PT for LE weakness. OT consulted with evaluating PT re: pain possibly may be coming from the neck and the c/o of symptoms. HOwever Patient would benefit from OP OT services to address the limited AROM, overall shoulder /ornament setter strength in order to improve mobility and ADLs at home. Chief Complaint Pain,Weakness,Decreased Chargeback Analyst Strength Symptom Type Ache,Sharp,Tingling,Shooting Symptoms Relieved By Nothing Symptoms Aggravated By Physical Activity Prior Functional Limitations None Current Functional Limitations Reaching,Lifting,Recreation Activity Symptom Description Constant and Continuous Level of pain today (0-10) 7 Pain scale - at its best (0-10) 7 Pain scale - at its worst (0-10) 9 Shoulder/Elbow Eval Shoulder Objective Measurements Shoulder ROM Left Sh
== END 2022-12-24 15:05 | disposition home or self-care (01) ==
LOC: OT 15:00
PROVIDERS: PCP Emergency Medicine; Visit Provider Emergency Medicine
DX: R29.898 Other symptoms and signs involving the musculoskeletal system (principal); M79.602 Pain in left arm
CPT/HCPCS: 97010; 97014; 97110; 97140; 97164; 97165; 97530; G0283

== ENCOUNTER → 2023-03-24 23:19 | Outpatient (CLI) | payer MEDICARE, SELFPAY ==
[2023-03-24 21:07] LABS: Benzodiazepines Screen,Urine Negative ng/ml (<200)
[2023-03-24 21:08] LABS: Amphetamine/Metha Screen,Urine Negative ng/ml (<1000)
[2023-03-24 21:09] LABS: Barbiturates Screen,Urine Negative ng/ml (<200); Cannabinoid Screen,Urine Negative ng/ml (<50)
[2023-03-24 21:10] LABS: Cocaine Screen,Urine Negative ng/ml (<300)
[2023-03-24 21:11] LABS: Methadone Screen,Urine Negative ng/ml (<300); Opiate Screen,Urine Positive ng/ml (<300)
[2023-03-24 21:12] LABS: Phencyclidine Screen,Urine Negative ng/ml (<25)
== END ==
PROVIDERS: PCP Emergency Medicine; Visit Provider Emergency Medicine
DX: R56.9 Unspecified convulsions (principal); Z79.899 Other long term (current) drug therapy
CPT/HCPCS: 80305

== ENCOUNTER → 2023-05-20 13:38 | Outpatient (CLI) | payer MEDICARE, SELFPAY ==
[2023-05-20 18:34] LABS: Cannabinoid Screen,Urine Negative ng/ml (<50); Methadone Screen,Urine Negative ng/ml (<300)
[2023-05-20 18:35] LABS: Opiate Screen,Urine Positive ng/ml (<300)
[2023-05-20 19:42] LABS: Amphetamine/Metha Screen,Urine Negative ng/ml (<1000); Barbiturates Screen,Urine Negative ng/ml (<200); Benzodiazepines Screen,Urine Negative ng/ml (<200)
[2023-05-20 20:28] LABS: Cocaine Screen,Urine Negative ng/ml (<300); Phencyclidine Screen,Urine Negative ng/ml (<25)
== END ==
PROVIDERS: PCP Emergency Medicine; Visit Provider Emergency Medicine
DX: R56.9 Unspecified convulsions (principal)
CPT/HCPCS: 80305

== ENCOUNTER → 2023-06-01 11:14 | Outpatient (CLI) | payer MEDICARE, SELFPAY ==
[2023-06-01 11:56] LABS: Basophils % 0.4 % (0.1-2.0); Eosinophils # 0.6 K/mm3 (0.0-0.4); Eosinophils % 10.5 % (0.1-12.0); Hematocrit 40.8 % (42.0-52.0); Hemoglobin 13.1 g/dL (14.1-18.0); Lymphocytes # 1.6 K/mm3 (0.7-4.5); Lymphocytes % 26.6 % (10-50); Mean Corpuscular HGB Conc 32.1 g/dL (31.8-35.4); Mean Corpuscular Hemoglobin 31.3 pg (27.0-31.2); Mean Corpuscular Volume 97.6 fl (80-94); Mean Platelet Volume 7.6 fl (7.4-10.4); Monocytes # 0.3 K/mm3 (0.1-1.0); Monocytes % 4.6 % (1.7-9.3); Neutrophils # 3.5 K/mm3 (1.8-7.8); Neutrophils % 57.9 % (37.0-80.0); Platelet Count 194 K/mm3 (142-424); Red Blood Count 4.18 M/mm3 (4.60-6.20); Red Cell Distribution Width 12.7 % (11.5-17.5)
[2023-06-01 12:04] LABS: Alanine Aminotransferase 22 U/L (12-78); Albumin Level 3.9 g/dl (3.5-5.0); Alkaline Phosphatase 46 U/L (38-126); Anion Gap 11.2 mEq/L (5-15); Aspartate Amino Transferase 23 U/L (17-59); Bilirubin,Unconjugated 0.4 mg/dL (0.0-1.1); Blood Urea Nitrogen 13 mg/dl (9-20); Calcium 8.9 mg/dl (8.4-10.2); Carbon Dioxide 30 mmol/L (22.0-30.0); Chloride 104 mmol/L (98-107); Chol/HDL Ratio 2.5 (1-3.5); Cholesterol 123 mg/dl (140-200); Estimated Glomerular Filt Rate 96 ml/min (>60); GFR (African American) 116 ML/MIN (>60); Glucose 153 mg/dl (74-100); HDL Cholesterol 49 mg/dl (40-60); Potassium 4.2 mmoL/L (3.5-5.1); Sodium 141 mmol/L (136-145); Total Protein,Serum 6.5 g/dl (6.3-8.2); Triglycerides 128 mg/dl (30-150); VLDL Cholesterol 26 mg/dL (0-40)
[2023-06-01 12:05] LABS: Bilirubin,Indirect 0.1 mg/dL (0.0-0.9); Bilirubin,Total 0.1 mg/dl (0.2-1.3)
[2023-06-01 12:15] LABS: Direct LDL Cholesterol 54.14 mg/dL (100-129)
[2023-06-01 12:35] LABS: Thyroid Stimulating Hormone 1.79 uIU/mL (0.465-4.68)
[2023-06-01 12:36] LABS: Free T4 (Free Thyroxine) 0.84 ng/dl (0.78-2.19)
== END ==
PROVIDERS: PCP Emergency Medicine; Visit Provider Nurse Practitioner
DX: E66.9 Obesity, unspecified (principal); E78.5 Hyperlipidemia, unspecified; G47.33 Obstructive sleep apnea (adult) (pediatric); I25.10 Atherosclerotic heart disease of native coronary artery without angina pectoris; I50.9 Heart failure, unspecified; I63.9 Cerebral infarction, unspecified; I77.9 Disorder of arteries and arterioles, unspecified; J44.9 Chronic obstructive pulmonary disease, unspecified; Z95.5 Presence of coronary angioplasty implant and graft; R06.00 Dyspnea, unspecified; E11.9 Type 2 diabetes mellitus without complications; I11.0 Hypertensive heart disease with heart failure; Z79.84 Long term (current) use of oral hypoglycemic drugs; Z68.31 Body mass index [BMI] 31.0-31.9, adult
CPT/HCPCS: 36415; 80048; 80061; 80076; 84439; 84443; 85025

== ENCOUNTER → 2023-07-06 13:00 | Outpatient (CLI) | payer MEDICARE, SELFPAY ==
[2023-07-06 23:38] LABS: Amphetamine/Metha Screen,Urine Negative ng/ml (<1000)
[2023-07-06 23:40] LABS: Cannabinoid Screen,Urine Negative ng/ml (<50)
[2023-07-06 23:41] LABS: Barbiturates Screen,Urine Negative ng/ml (<200); Benzodiazepines Screen,Urine Negative ng/ml (<200)
[2023-07-06 23:42] LABS: Opiate Screen,Urine Positive ng/ml (<300)
[2023-07-06 23:43] LABS: Cocaine Screen,Urine Negative ng/ml (<300); Methadone Screen,Urine Negative ng/ml (<300)
[2023-07-06 23:44] LABS: Phencyclidine Screen,Urine Negative ng/ml (<25)
== END ==
PROVIDERS: PCP Emergency Medicine; Visit Provider Emergency Medicine
DX: R56.9 Unspecified convulsions (principal); Z79.899 Other long term (current) drug therapy
CPT/HCPCS: 80305

== ENCOUNTER → 2023-07-22 13:18 | Outpatient (CLI) | payer MEDICARE, SELFPAY ==
--- NOTE | 2023-07-22 13:19 | MR_ITS ---
FINAL REPORT CLINICAL HISTORY: lumbar pain, no injury COMPARISON: 08/11/2020 FINDINGS: Multiplanar MR imaging of the lumbar spine was performed without contrast. There is S shaped scoliosis. On the sagittal T2-weighted images, disc degeneration is seen throughout. There is mild retrolisthesis of L2 on 3 and L3 on 4. Endplate changes are seen at multiple levels. There are Schmorl's nodes at multiple levels. There is no evidence of fracture. The conus has an unremarkable appearance. L1-2: An annular bulge is present. Facet arthropathy and osteophytes are present. There is mild right and moderate left neural foraminal narrowing. L2-3: An annular bulge is present. Facet arthropathy and osteophytes are present. There is a left foraminal disc protrusion with mild right and severe left neural foraminal narrowing. L3-4: An annular bulge is present. Facet arthropathy and osteophytes are present. There is moderate bilateral neural foraminal narrowing. L4-5: An annular bulge is present. Facet arthropathy and osteophytes are present. There is moderate right and severe left neural foraminal narrowing. L5-S1: There is partial sacralization of L5. Facet arthropathy is present. IMPRESSION: Multilevel degenerative disc disease and spondylosis. Left foraminal disc protrusion at L2-3 with severe left neural foraminal narrowing. Reviewed, Interpreted and Dictated by Giles Kaufman III, MD Transcribed by Izabela Garcia Authenticated and . [facility]
== END ==
PROVIDERS: PCP Emergency Medicine; Visit Provider Emergency Medicine
DX: M54.16 Radiculopathy, lumbar region (principal); M54.50 Low back pain, unspecified
CPT/HCPCS: 72148; 76376

== ENCOUNTER → 2023-08-24 08:25 | Outpatient (CLI) | payer MEDICARE, SELFPAY ==
[2023-08-24 20:07] LABS: Amphetamine/Metha Screen,Urine Negative ng/ml (<1000)
[2023-08-24 20:08] LABS: Barbiturates Screen,Urine Negative ng/ml (<200); Benzodiazepines Screen,Urine Negative ng/ml (<200)
[2023-08-24 20:09] LABS: Cannabinoid Screen,Urine Negative ng/ml (<50)
[2023-08-24 20:10] LABS: Cocaine Screen,Urine Negative ng/ml (<300); Methadone Screen,Urine Negative ng/ml (<300)
[2023-08-24 20:11] LABS: Opiate Screen,Urine Positive ng/ml (<300)
[2023-08-24 20:13] LABS: Phencyclidine Screen,Urine Negative ng/ml (<25)
== END ==
PROVIDERS: PCP Emergency Medicine; Visit Provider Emergency Medicine
DX: Z79.899 Other long term (current) drug therapy (principal)
CPT/HCPCS: 80305

== ENCOUNTER 2023-10-20 07:16 | Outpatient (CLI) | payer MEDICARE, SELFPAY ==
[2023-10-20 18:31] LABS: Basophils % 0.6 % (0.1-2.0); Eosinophils # 0.2 K/mm3 (0.0-0.4); Eosinophils % 2.3 % (0.1-12.0); Hemoglobin 14.8 g/dL (14.1-18.0); Lymphocytes # 1.9 K/mm3 (0.7-4.5); Lymphocytes % 24.2 % (10-50); Mean Corpuscular HGB Conc 32.8 g/dL (31.8-35.4); Mean Corpuscular Hemoglobin 30.8 pg (27.0-31.2); Mean Corpuscular Volume 93.8 fl (80-94); Mean Platelet Volume 8.7 fl (7.4-10.4); Monocytes # 0.4 K/mm3 (0.1-1.0); Monocytes % 5.2 % (1.7-9.3); Neutrophils # 5.4 K/mm3 (1.8-7.8); Neutrophils % 67.8 % (37.0-80.0); Platelet Count 248 K/mm3 (142-424); Red Cell Distribution Width 13.1 % (11.5-17.5); White Blood Count 7.9 K/mm3 (4.8-10.8)
[2023-10-20 18:54] LABS: Alanine Aminotransferase 22 U/L (12-78); Albumin Level 4.7 g/dl (3.5-5.0); Albumin/Globulin Ratio 1.8 (1.1-1.8); Alkaline Phosphatase 51 U/L (38-126); Anion Gap 14.7 mEq/L (5-15); Aspartate Amino Transferase 26 U/L (17-59); Bilirubin,Total 0.5 mg/dl (0.2-1.3); Blood Urea Nitrogen 19 mg/dl (9-20); Calcium 9.1 mg/dl (8.4-10.2); Carbon Dioxide 24 mmol/L (22.0-30.0); Chloride 102 mmol/L (98-107); Estimated Glomerular Filt Rate 84 ml/min (>60); GFR (African American) 101 ML/MIN (>60); Globulin 2.6 g/dL (1.3-3.2); Glucose 106 mg/dl (74-100); Potassium 4.7 mmoL/L (3.5-5.1); Sodium 136 mmol/L (136-145); Total Protein,Serum 7.3 g/dl (6.3-8.2)
[2023-10-20 19:12] LABS: 25-OH Vitamin D, Total 51.4 ng/mL (30-100)
[2023-10-20 19:27] LABS: Prostate Specific Ag Screen 0.8 ng/ml (0.0-4.0)
[2023-10-20 19:48] LABS: Iron 98 ug/dL (49-181)
[2023-10-20 19:57] LABS: Total Iron Binding Capacity 413 ug/dL (261-462)
[2023-10-20 20:24] LABS: Ferritin 61.8 ng/ml (17.9-464)
[2023-10-20 20:35] LABS: Hemoglobin A1C 6.1 % (4.0-6.0)
[2023-10-20 21:55] LABS: Amphetamine/Metha Screen,Urine Negative ng/ml (<1000); Barbiturates Screen,Urine Negative ng/ml (<200); Benzodiazepines Screen,Urine Negative ng/ml (<200); Cannabinoid Screen,Urine Negative ng/ml (<50); Cocaine Screen,Urine Negative ng/ml (<300); Methadone Screen,Urine Negative ng/ml (<300); Opiate Screen,Urine Positive ng/ml (<300); Phencyclidine Screen,Urine Negative ng/ml (<25)
[2023-10-20 22:22] LABS: Creatinine,Urine Random 276 mg/dL (Not Estab.); Microalbumin/Creatinine Ratio 4.6
== END 2023-10-20 23:59 ==
LOC: LAB.DROPOF 10-21 07:17
PROVIDERS: PCP Internal Medicine; Visit Provider Internal Medicine
DX: I25.10 Atherosclerotic heart disease of native coronary artery without angina pectoris (principal); Z68.31 Body mass index [BMI] 31.0-31.9, adult; E11.9 Type 2 diabetes mellitus without complications; M54.16 Radiculopathy, lumbar region; R56.9 Unspecified convulsions; R42 Dizziness and giddiness; I50.9 Heart failure, unspecified; D64.9 Anemia, unspecified; Z12.5 Encounter for screening for malignant neoplasm of prostate; E66.9 Obesity, unspecified; Z79.84 Long term (current) use of oral hypoglycemic drugs
CPT/HCPCS: 80053; 80307; 82043; 82306; 82570; 82728; 83036; 83540; 83550; 85025; G0103

== ENCOUNTER 2024-02-08 12:47 | Outpatient (CLI) | payer MEDICARE, SELFPAY ==
[2024-02-08 13:26] LABS: Blood Urea Nitrogen 17 mg/dl (9-20); Estimated Glomerular Filt Rate 84 ml/min (>60); GFR (African American) 101 ML/MIN (>60)
== END 2024-02-08 23:59 | disposition home or self-care (01) ==
PROVIDERS: PCP Internal Medicine; Visit Provider Specialist
DX: Z01.812 Encounter for preprocedural laboratory examination (principal)
CPT/HCPCS: 36415; 82565; 84520

== ENCOUNTER 2024-02-09 08:43 | Outpatient (CLI) | payer MEDICARE, SELFPAY ==
--- NOTE | 2024-02-09 08:44 | MR_ITS ---
FINAL REPORT CLINICAL HISTORY: Abnormal MRI COMPARISON: 08/22/2022 FINDINGS: Multiplanar MR imaging of the brain was performed without and with contrast. There is mild to moderate abnormal signal in the periventricular white matter, as well as in the right posterior parietal lobe cortex, which is stable since the prior MR examination of 08/22/2022. There is no evidence of intracranial hemorrhage or mass. No abnormal extra-axial fluid collection is seen. The ventricular size is within normal limits. There is no evidence of shift of the midline structures. The posterior fossa and brainstem have an unremarkable appearance. No area of abnormal restricted diffusion is identified. No abnormal contrast enhancement is seen. Normal major vessel vascular flow voids are noted. IMPRESSION: Mild to moderate abnormal signal is present in the periventricular white matter and in the right posterior parietal cortex, which is stable when compared to the prior exam of August 2022. This is likely the sequela of prior ischemia. There is no evidence of focal enhancement or restricted diffusion. Reviewed, Interpreted and Dictated by Nic Mancera MD Transcribed by Elsy Dominique Authenticated and [facility]
[2024-02-09] MEDS: SODIUM CHLORIDE 0.9% 10ML SYR (RAD ONLY) 10 ML IV (10:38)
[2024-02-09] MEDS: GADOTERIDOL INJ 17ML SYRINGE 19 ML IV (10:38)
== END 2024-02-09 23:59 | disposition home or self-care (01) ==
LOC: RAD 08:44
PROVIDERS: PCP Internal Medicine; Visit Provider Specialist
DX: R90.89 Other abnormal findings on diagnostic imaging of central nervous system (principal); R51.9 Headache, unspecified; G89.29 Other chronic pain; G93.49 Other encephalopathy
CPT/HCPCS: 70553; A9576

== ENCOUNTER 2024-02-24 12:08 | Outpatient (CLI) | payer MEDICARE, SELFPAY ==
[2024-02-24 12:14] LABS: MANUAL DIFFERENTIAL MANUAL DIFFERENTIAL (MANUAL DIFF)
[2024-02-24 12:27] LABS: Basophils # 0.1 K/mm3 (0-0.2); Basophils % 1.1 % (0.1-2.0); Eosinophils # 0.3 K/mm3 (0.0-0.4); Eosinophils % 4.3 % (0.1-12.0); Hematocrit 42.6 % (42.0-52.0); Hemoglobin 14.1 g/dL (14.1-18.0); Lymphocytes # 1.9 K/mm3 (0.7-4.5); Lymphocytes % 28.5 % (10-50); Mean Corpuscular HGB Conc 33.1 g/dL (31.8-35.4); Mean Corpuscular Hemoglobin 31.2 pg (27.0-31.2); Mean Corpuscular Volume 94.1 fl (80-94); Mean Platelet Volume 7.9 fl (7.4-10.4); Monocytes # 0.4 K/mm3 (0.1-1.0); Monocytes % 6.6 % (1.7-9.3); Neutrophils # 3.9 K/mm3 (1.8-7.8); Neutrophils % 59.5 % (37.0-80.0); Platelet Count 246 K/mm3 (142-424); Red Blood Count 4.53 M/mm3 (4.60-6.20); Red Cell Distribution Width 13.5 % (11.5-17.5); White Blood Count 6.6 K/mm3 (4.8-10.8)
[2024-02-24 12:53] LABS: Alanine Aminotransferase 18 U/L (12-78); Albumin Level 4.2 g/dl (3.5-5.0); Albumin/Globulin Ratio 1.7 (1.1-1.8); Alkaline Phosphatase 46 U/L (38-126); Anion Gap 14.2 mEq/L (5-15); Aspartate Amino Transferase 25 U/L (17-59); Bilirubin,Total 0.4 mg/dl (0.2-1.3); Blood Urea Nitrogen 16 mg/dl (9-20); Calcium 9.5 mg/dl (8.4-10.2); Carbon Dioxide 29 mmol/L (22.0-30.0); Chloride 98 mmol/L (98-107); Estimated Glomerular Filt Rate 84 ml/min (>60); GFR (African American) 101 ML/MIN (>60); Globulin 2.5 g/dL (1.3-3.2); Glucose 93 mg/dl (74-100); Potassium 4.2 mmoL/L (3.5-5.1); Sodium 137 mmol/L (136-145); Total Protein,Serum 6.7 g/dl (6.3-8.2)
[2024-02-24 14:33] LABS: Eosinophils % 1 % (0-3); Lymphocytes % 26 % (10-50); Monocytes % 13 % (2-9); Neutrophils % 60 % (42-76); Total Cells Counted 100
[2024-02-24 14:34] LABS: Platelet Estimate Normal; RBC Morphology Normal
== END 2024-02-24 23:59 | disposition home or self-care (01) ==
LOC: LAB 12:09
PROVIDERS: PCP Internal Medicine; Visit Provider Specialist
DX: D64.9 Anemia, unspecified (principal); R56.9 Unspecified convulsions; R51.9 Headache, unspecified; G89.29 Other chronic pain; T50.905A Adverse effect of unspecified drugs, medicaments and biological substances, initial encounter; D69.6 Thrombocytopenia, unspecified
CPT/HCPCS: 36415; 80053; 85007; 85014; 85018; 85048; 85049

== ENCOUNTER 2024-04-05 22:23 | Outpatient (CLI) | payer MEDICARE, SELFPAY ==
[2024-04-05 23:29] LABS: Chol/HDL Ratio 4.1 (1-3.5); Cholesterol 186 mg/dl (140-200); HDL Cholesterol 45 mg/dl (40-60); Triglycerides 154 mg/dl (30-150); VLDL Cholesterol 31 mg/dL (0-40)
[2024-04-05 23:40] LABS: Direct LDL Cholesterol 112.99 mg/dL (100-129)
== END 2024-04-05 23:59 | disposition home or self-care (01) ==
LOC: LAB 22:25
PROVIDERS: PCP Internal Medicine; Visit Provider Internal Medicine
DX: E78.5 Hyperlipidemia, unspecified (principal)
CPT/HCPCS: 80061

== ENCOUNTER 2024-04-14 09:24 | Outpatient (CLI) | payer MEDICARE, SELFPAY ==
[2024-04-14 09:30] LABS: MANUAL DIFFERENTIAL MANUAL DIFFERENTIAL (MANUAL DIFF)
[2024-04-14 10:36] LABS: Basophils # 0.1 K/mm3 (0-0.2); Basophils % 0.9 % (0.1-2.0); Eosinophils # 0.5 K/mm3 (0.0-0.4); Eosinophils % 9.3 % (0.1-12.0); Lymphocytes # 1.7 K/mm3 (0.7-4.5); Mean Corpuscular HGB Conc 33.4 g/dL (31.8-35.4); Mean Corpuscular Hemoglobin 31.6 pg (27.0-31.2); Mean Corpuscular Volume 94.7 fl (80-94); Monocytes # 0.4 K/mm3 (0.1-1.0); Monocytes % 7.8 % (1.7-9.3); Neutrophils # 2.4 K/mm3 (1.8-7.8); Platelet Count 228 K/mm3 (142-424); Red Blood Count 4.43 M/mm3 (4.60-6.20); Red Cell Distribution Width 13.8 % (11.5-17.5); White Blood Count 4.9 K/mm3 (4.8-10.8)
[2024-04-14 11:19] LABS: Eosinophils % 3 % (0-3); Lymphocytes % 30 % (10-50); Monocytes % 7 % (2-9); Neutrophils % 60 % (42-76); Platelet Estimate Normal; RBC Morphology Normal; Total Cells Counted 100
== END 2024-04-14 23:59 | disposition home or self-care (01) ==
LOC: LAB 09:25
PROVIDERS: PCP Internal Medicine; Visit Provider Specialist
DX: R51.9 Headache, unspecified (principal); G89.29 Other chronic pain
CPT/HCPCS: 36415; 85007; 85014; 85018; 85048; 85049

== ENCOUNTER 2024-04-25 15:12 | Outpatient (CLI) | payer MEDICARE, SELFPAY ==
--- NOTE | 2024-04-25 15:12 | MR_ITS ---
FINAL REPORT CLINICAL HISTORY: Chronic intractable headache FINDINGS: Multiple projection images of the brain arterial and venous vasculature were obtained. The distal internal carotid, distal vertebral and basilar arteries are patent without significant stenosis or occlusion. The proximal anterior, middle and posterior cerebral arteries are patent without evidence of significant stenosis or major branch occlusion. There is no evidence of aneurysm or vascular malformation. The major dural venous sinuses appear patent. IMPRESSION: Unremarkable MR angiogram and MR venogram of the head. Authenticated and [facility]
[2024-04-25 15:54] LABS: Blood Urea Nitrogen 16 mg/dl (9-20); Estimated Glomerular Filt Rate 84 ml/min (>60); GFR (African American) 101 ML/MIN (>60)
[2024-04-25] MEDS: GADOTERIDOL INJ 20ML SYRINGE 19 ML IV (16:32)
[2024-04-25] MEDS: SODIUM CHLORIDE 0.9% 10ML SYR (RAD ONLY) 10 ML IV (16:33)
[2024-04-25] MEDS: 0.9 % SODIUM CHLORIDE 50 ML VIAL 10 ML IV (16:33)
== END 2024-04-25 23:59 | disposition home or self-care (01) ==
LOC: RAD 15:12
PROVIDERS: PCP Internal Medicine; Visit Provider Specialist
DX: I67.83 Posterior reversible encephalopathy syndrome (principal); Z86.61 Personal history of infections of the central nervous system; R51.9 Headache, unspecified; G89.29 Other chronic pain; R56.9 Unspecified convulsions; Z87.891 Personal history of nicotine dependence
CPT/HCPCS: 36415; 70546; 82565; 84520; A9576

== ENCOUNTER 2024-05-20 12:34 | Day surgery (SDC) | payer MEDICARE, SELFPAY ==
[2024-05-20 12:50] VITALS: BP 172/91; PULSE 63; RESP 18; TEMP 36.7; O2SAT 98; BMI 33.8
[2024-05-20 13:02] VITALS: BP 157/78; PULSE 66; RESP 18; O2SAT 97
[2024-05-20 14:11] VITALS: BP 182/91; PULSE 62; RESP 18; O2SAT 97
[2024-05-20 14:55] LABS: Glucose,CSF 74 mg/dl (40-70)
[2024-05-20 15:39] LABS: Appearance,CSF Clear (Clear); Red Blood Cell,CSF 2 cells/uL (0); Volume,CSF 7 mL; White Blood Cell,CSF 4 cells/uL (0-5)
[2024-05-20 15:41] LABS: Polynuclear WBCs,CSF 0 %
--- NOTE | 2024-05-20 15:41 | EXP.PAIN.PRO ---
Procedure Date: 05/20/24 Time: 15:42 Anesthesiologist:: Sukumar Euceda MD Complications:: None Pre-procedure Diagnosis:: Headaches Post-procedure Diagnosis:: Same Indications for Procedure:: This patient is a pleasant 68-year-old white male who is referred by Dr. Menon for diagnostic lumbar puncture with opening closing pressures for headaches. Procedure Details:: Informed consent was obtained risk and benefits of the procedure were explained to the patient. Patient was placed in left lateral decubitus position. C-arm fluoroscopy was used to view the L4-5 interspace. The skin and subcutaneous tissues were anesthetized using lidocaine. A 20-gauge spinal needle was inserted we did obtain clear CSF. Opening pressures were found to be 26 cm of water. We obtained approximately 10 mL of CSF this was placed into 4 tubes. We had trouble getting additional fluid. Closing pressures were not able to be obtained because of stoppage of flow CSF. We tried multiple times to reaccessed intrathecal space without success. We attempted multiple times to get additional fluid we were not able to get any additional fluid from this patient. Patient tolerated the procedure well with no complications. Plan and Disposition:: Will follow-up with this patient as needed.
[2024-05-20 15:45] LABS: Appearance,CSF Clear (Clear); Mononuclear WBCs,CSF 100 %; Polynuclear WBCs,CSF 0 %; Red Blood Cell,CSF 2 cells/uL (0); Volume,CSF 7 mL; White Blood Cell,CSF 3 cells/uL (0-5)
[2024-05-23 16:18] LABS: VDRL, Cerebrospinal Fluid Non Reactive (Non Rea:<1:1)
[2024-05-24 15:14] LABS: CAP Mandated Reflex to Culture Not Indicated (.); Cryptococcus Antigen, CSF Negative (Negative)
[2024-05-25 12:36] LABS: Lyme B. burgdorferi PCR Blood Negative (Negative)
== END 2024-05-20 14:11 | disposition home or self-care (01) ==
LOC: SC.PAINP 12:36
PROVIDERS: PCP Internal Medicine; Visit Provider Anesthesiology
DX: R51.9 Headache, unspecified (principal)
CPT/HCPCS: 62328; 82945; 84155; 86592; 87070; 87102; 87116; 87205; 87206; 87476; 87899; 89051

== ENCOUNTER 2024-05-23 09:53 | Outpatient (CLI) | payer MEDICARE, SELFPAY ==
[2024-05-24 12:45] LABS: Immunoglobulin G, Qn 885 mg/dL (603-1613)
== END 2024-05-23 23:59 | disposition home or self-care (01) ==
LOC: LAB 09:55
PROVIDERS: PCP Internal Medicine; Visit Provider Specialist
DX: R51.9 Headache, unspecified (principal); G89.29 Other chronic pain
CPT/HCPCS: 36415; 82784

== ENCOUNTER 2024-07-07 09:19 | Day surgery (SDC) | payer MEDICARE, SELFPAY ==
[2024-07-07] VITALS (12 sets, daily range): BP systolic 99–162; BP diastolic 59–98; PULSE 62–77; RESP 18–20; TEMP 36.9; O2SAT 93–95; BMI 34.2
--- NOTE | 2024-07-07 07:07 | IR_ITS ---
APPROVED REPORT Patient Location: Outpatient Health Policy Manager: ALISSON Carpio RT (R) PROCEDURES Left heart catheterization Left ventriculogram Selective coronary angiogram INDICATION Abnormal Myoview, Angina pectoris, Known coronary artery disease Informed consent was obtained prior to the procedure. COMPLICATIONS NONE Estimated Blood Loss: LESS THAN 10 ML TECHNIQUE One percent lidocaine used to anesthetize the right anterior aspect of the wrist. The right radial artery was accessed via the Seldinger technique. A 6 Syriac sheath was placed in the right radial artery. 2.5 mg of Verapamil, 800 mcg of nitroglycerin, 1mg Lidocaine and 5000 U Heparin were given through the arterial sheath. The papa catheter was also used to perform left heart catheterization, left ventriculogram and selective coronary angiogram. At the end of the procedure the sheath was removed good hemostasis was achieved using Traclet band, patient was transferred to the postop holding area in stable condition. ANGIOGRAPHIC RESULTS The left main artery Has a stent in the ostial segment which extends distally and bifurcates into the proximal LAD and proximal dominant circumflex artery The left anterior descending artery Has a stent originating off the left main artery and in the proximal segment. The stent is widely patent with minimal ostial in-stent restenosis with excellent distal transitioning. The remaining LAD is widely patent The circumflex artery Large dominant vessel with a stent originating off the left main artery. The ostial stent has a 30% compression with wide patency of the remaining vessel. The right coronary artery Small nondominant normal The HU ventriculogram reveals Normal 65% The left ventricular end-diastolic pressure 20 mmHg IMPRESSION Widely patent coronary artery stents as described above Normal ejection fraction Elevated LVEDP PLAN 1. Medical management for coronary disease 2. Maximize antianginal medications 3. Treatment of diastolic dysfunction 4. Consider sleep study if clinically appropriate Electronically signed by : Dez Toscano MD 07/07/2024 14:38:08
[2024-07-07 09:49] LABS: Basophils # 0.1 K/mm3 (0-0.2); Eosinophils # 0.3 K/mm3 (0.0-0.4); Eosinophils % 4.1 % (0.1-12.0); Hematocrit 43.6 % (42.0-52.0); Hemoglobin 14.2 g/dL (14.1-18.0); Lymphocytes % 24.6 % (10-50); Mean Corpuscular HGB Conc 32.6 g/dL (31.8-35.4); Mean Corpuscular Hemoglobin 31.7 pg (27.0-31.2); Mean Corpuscular Volume 97.4 fl (80-94); Mean Platelet Volume 8.1 fl (7.4-10.4); Monocytes # 0.6 K/mm3 (0.1-1.0); Monocytes % 7.6 % (1.7-9.3); Neutrophils # 5.1 K/mm3 (1.8-7.8); Neutrophils % 62.6 % (37.0-80.0); Platelet Count 268 K/mm3 (142-424); Red Blood Count 4.48 M/mm3 (4.60-6.20); Red Cell Distribution Width 13.6 % (11.5-17.5); White Blood Count 8.1 K/mm3 (4.8-10.8)
[2024-07-07 09:54] LABS: Chloride 98 mmol/L (98-107); Potassium 4.2 mmoL/L (3.5-5.1); Sodium 135 mmol/L (136-145)
[2024-07-07 09:57] LABS: Anion Gap 12.2 mEq/L (5-15); Blood Urea Nitrogen 23 mg/dl (9-20); Calcium 9.9 mg/dl (8.4-10.2); Carbon Dioxide 29 mmol/L (22.0-30.0); Creatinine Clearance Estimated 75 mL/min (50-200); Estimated Glomerular Filt Rate 55 ml/min (>60); GFR (African American) 66 ML/MIN (>60); Glucose 129 mg/dl (74-100)
[2024-07-07] MEDS: HEPARIN 1,000 UNITS/ML 10ML VIAL (CATH LAB) 10000 UNIT IV (10:51)
[2024-07-07] MEDS: LIDOCAINE 1% 10ML MDV 20 ML IJ (10:52)
[2024-07-07] MEDS: diphenhydrAMINE 50MG/ML VIAL 50 MG IV (10:52)
[2024-07-07] MEDS: 0.9 % SODIUM CHLORIDE 500 ML 25 ML IV (10:52)
[2024-07-07] MEDS: VERAPAMIL 2.5MG/ML 2ML VIAL 2.5 MG IV (10:52)
[2024-07-07] MEDS: NITROGLYCERIN 800MCG/8ML SYR (CATH LAB) 800 MCG IA (10:53)
[2024-07-07] MEDS: HEPARIN 1,000 UNITS/500ML NS (CATH LAB) 3000 UNIT IV (10:53)
[2024-07-07] MEDS: FENTANYL 100MCG/2ML VIAL 50 MCG IV (11:31)
[2024-07-07] MEDS: MIDAZOLAM HCL 1MG/1ML 5ML VIAL 1 MG IV (11:32)
[2024-07-07] MEDS: IOPAMIDOL-370 (76%);100ML BOTTLE 70 ML IV (14:16)
== END 2024-07-07 14:07 | disposition home or self-care (01) ==
LOC: CATHLAB 09:21
PROVIDERS: PCP Internal Medicine; Visit Provider Internal Medicine
DX: R93.1 Abnormal findings on diagnostic imaging of heart and coronary circulation (principal); I25.118 Atherosclerotic heart disease of native coronary artery with other forms of angina pectoris; I65.23 Occlusion and stenosis of bilateral carotid arteries; Z95.5 Presence of coronary angioplasty implant and graft; E55.9 Vitamin D deficiency, unspecified; Z79.899 Other long term (current) drug therapy; I11.0 Hypertensive heart disease with heart failure; I50.9 Heart failure, unspecified; F17.210 Nicotine dependence, cigarettes, uncomplicated
CPT/HCPCS: 80048; 85025; 93458; 99152; C1725; C1769; J1200; J1644; J2250; J3010; Q9967

== ENCOUNTER 2024-07-19 10:15 | Outpatient (CLI) | payer MEDICARE, SELFPAY ==
[2024-07-19 23:16] LABS: Hemoglobin A1C 6.8 % (4.0-6.0)
[2024-07-19 23:36] LABS: Alanine Aminotransferase 23 U/L (12-78); Albumin Level 4.5 g/dl (3.5-5.0); Albumin/Globulin Ratio 1.6 (1.1-1.8); Alkaline Phosphatase 41 U/L (38-126); Anion Gap 16.9 mEq/L (5-15); Aspartate Amino Transferase 25 U/L (17-59); Bilirubin,Total 0.4 mg/dl (0.2-1.3); Blood Urea Nitrogen 35 mg/dl (9-20); Carbon Dioxide 27 mmol/L (22.0-30.0); Chloride 97 mmol/L (98-107); Estimated Glomerular Filt Rate 46 ml/min (>60); GFR (African American) 56 ML/MIN (>60); Globulin 2.8 g/dL (1.3-3.2); Glucose 109 mg/dl (74-100); Potassium 4.9 mmoL/L (3.5-5.1); Sodium 136 mmol/L (136-145); Total Protein,Serum 7.3 g/dl (6.3-8.2)
== END 2024-07-19 23:59 | disposition home or self-care (01) ==
LOC: LAB.DROPOF 07-20 11:13
PROVIDERS: PCP Internal Medicine; Visit Provider Internal Medicine
DX: Z13.1 Encounter for screening for diabetes mellitus (principal); E66.9 Obesity, unspecified; Z68.34 Body mass index [BMI] 34.0-34.9, adult
CPT/HCPCS: 80053; 83036

== ENCOUNTER 2024-07-28 12:05 | Outpatient (CLI) | payer MEDICARE, SELFPAY | END 2024-07-28 23:59 | disposition home or self-care (01) | LOC: RT 12:08 | PROVIDERS: PCP Internal Medicine; Visit Provider Specialist | DX: G47.33 Obstructive sleep apnea (adult) (pediatric) (principal); R51.9 Headache, unspecified; G89.29 Other chronic pain | CPT/HCPCS: 94762 ==

== ENCOUNTER 2024-08-18 11:41 | Outpatient (CLI) | payer MEDICARE, SELFPAY ==
[2024-08-18 12:22] LABS: Alanine Aminotransferase 20 U/L (12-78); Albumin Level 4.3 g/dl (3.5-5.0); Albumin/Globulin Ratio 1.8 (1.1-1.8); Alkaline Phosphatase 32 U/L (38-126); Anion Gap 15.3 mEq/L (5-15); Aspartate Amino Transferase 25 U/L (17-59); Bilirubin,Total 0.6 mg/dl (0.2-1.3); Blood Urea Nitrogen 27 mg/dl (9-20); Calcium 9.5 mg/dl (8.4-10.2); Carbon Dioxide 30 mmol/L (22.0-30.0); Chloride 94 mmol/L (98-107); Estimated Glomerular Filt Rate 40 ml/min (>60); GFR (African American) 49 ML/MIN (>60); Globulin 2.4 g/dL (1.3-3.2); Glucose 114 mg/dl (74-100); Potassium 3.3 mmoL/L (3.5-5.1); Sodium 136 mmol/L (136-145); Total Protein,Serum 6.7 g/dl (6.3-8.2)
== END 2024-08-18 23:59 | disposition home or self-care (01) ==
LOC: LAB 11:42
PROVIDERS: PCP Internal Medicine; Visit Provider Internal Medicine
DX: I10 Essential (primary) hypertension (principal); N28.9 Disorder of kidney and ureter, unspecified
CPT/HCPCS: 80053

== ENCOUNTER 2024-08-22 09:09 | Outpatient (CLI) | payer MEDICARE, SELFPAY ==
[2024-08-22 09:44] LABS: Blood Urea Nitrogen 22 mg/dl (9-20); Estimated Glomerular Filt Rate 50 ml/min (>60); GFR (African American) 61 ML/MIN (>60)
[2024-08-22 09:53] LABS: Anion Gap 11.8 mEq/L (5-15); Blood Urea Nitrogen 23 mg/dl (9-20); Calcium 9.6 mg/dl (8.4-10.2); Carbon Dioxide 30 mmol/L (22.0-30.0); Chloride 95 mmol/L (98-107); Estimated Glomerular Filt Rate 55 ml/min (>60); GFR (African American) 66 ML/MIN (>60); Glucose 110 mg/dl (74-100); Potassium 3.8 mmoL/L (3.5-5.1); Sodium 133 mmol/L (136-145)
== END 2024-08-22 23:59 | disposition home or self-care (01) ==
LOC: LAB 09:10
PROVIDERS: PCP Internal Medicine; Visit Provider Nurse Practitioner Family
DX: R79.89 Other specified abnormal findings of blood chemistry (principal); I50.9 Heart failure, unspecified; I65.23 Occlusion and stenosis of bilateral carotid arteries; I10 Essential (primary) hypertension; E78.2 Mixed hyperlipidemia; I25.10 Atherosclerotic heart disease of native coronary artery without angina pectoris; N28.9 Disorder of kidney and ureter, unspecified
CPT/HCPCS: 36415; 80048; 82565; 84520

== ENCOUNTER 2024-09-02 08:00 | Outpatient (RCR) | payer MEDICARE, SELFPAY ==
--- NOTE | 2024-08-17 16:19 | HMH.PTOPEV ---
PT Outpatient Evaluation Rehab PT Outpatient Evaluation Start: 08/17/24 12:58 Freq: Status: Active Protocol: Document 08/17/24 12:58 ABHINAV (Rec: 08/17/24 16:17 ABHINAV [id number]) E-signed By Maru Hicks, PT Outpatient Therapy Subjective History Subjective History This is an initial PT eval for 68 y/o male, Efrain Maldonado, who presents to PT for fall assessment . Pt's present to assist with providing history. Pt reports he gets dizzy frequently and falls. Pt reports he was at for almost 4 months (in 2020) for unknown neurological diagnosis . Pt has had success with PT in the past for his balance and strength. Pt does see a neurologist but reports they don't know the diagnosis to explain his HAs or dizziness. Pt with difficulty negotiating uneven surfaces, stairs, and obstacles. Pt's reports he has depth perception impairments and cataracts. Denies neuropathy in feet. Pt falls frequently. Falls: 4 falls in past week. Mobility: Pt uses RW most of the time. No cane or w/c. Uses walker for household and community ambulation. PMH: diabetes, cardiac stents, Encephalopathy chronic, Lesion of brain New diagnosis of cancer in past 12 No months? Chief Complaint Gives out/Unstable,Weakness Hip/Knee Eval Assistive Device Assistive Devices Rolling / Wheeled Walker MMT right Hip Flexion Strength Grade 4 Good Hip Abduction Strength Grade 4 Good Hip Adduction Strength Grade 4 Good Hip Extension Strength Grade 4 Good Knee Extension Strength Grade 4 Good Knee Flexion Strength Grade 4 Good left Hip Flexion Strength Grade 4- Good- Hip Abduction Strength Grade 4 Good Hip Adduction Strength Grade 4 Good Hip Extension Strength Grade 4 Good Knee Extension Strength Grade 4 Good Knee Flexion Strength Grade 4 Good Balance Eval Timed Up and Go Test 1. Is the Timed Up and Go test result > yes or = to 12 seconds? Rhomberg Feet Together/Eyes open/Stable Surface pass Feet Together/Eyes Closed/Stable Surface pass Feet Together/Eyes open/Unstable Surface pass Feet Together/Eyes Closed/Unstable fail Surface Dynamic Gait Index Test Protocol Gait Level Surface Mild Impairment Query Text: Instructions: Walk at your normal speed from here to the next ely (20'). Grading: Ely the lowest category that applies. Change in Gait Speed Mild Impairment Query Text: Instructions: Begin walking at your normal pace (for 5'), when I tell you go , walk as fast as you can (for 5'). When I tell you slow , walk as slowly as you can (for 5'). Grading: Ely the lowest category that applies. Gait with Horizontal Head Turns Mild Impairment Query Text: Instructions: Begin walking at your normal pace. When I tell you to look right , keep walking straight, but turn you head to the right. Keep looking to the right unit I tell you look left , then keep walking straight and turn your head to the left. Keep your head to the left until I tell you look straight , then keep walking straight, but return you head to the center. Grading: Ely the lowest category that applies. Gait with Vertical Head Turns Mild Impairment Query Text: Instructions: Begin walking at your normal pace. When I tell you to look up , keep walking staight, but tip your head up. Keep looking up until I tell you to look down , then keep walking straight and tip your head down. Keep your head down until I tell you look straight , then keep walking straight, but return your head to the center. Grading: Ely the lowest category that applies. Gait and Pivot Turn Mild Impairment Query Text: Instructions: Begin walking at your normal pace. When I tell you turn and stop , turn as quickly as you can to face the opposite direction and stop. Grading: Ely the lowest category that applies. Step Over Obstacle Severe Impairment Query Text: Instructions: Begin walking at your normal speed. When you come to the shoebox, step over it, not around it and keep walking. Grading: Ely the lowest category that applies. Step Around Obstacles Severe Impairment Query Text: Instructions: Begin walking at normal speed. When you come to the first cone (about 6' away), walk around the right side of it. When you come to the second cone (6' past first cone), walk around it to the left. Grading: Ely the lowest category that applies. Steps Moderate Impairment Query Text: Instructions: Walk up these stairs as you would at home. At the top, turn around and walk down. Grading: Ely the lowest category that applies. Scoring Dynamic Gait Index Score 11 Miscellaneous Dx PT Eval Objective Objective 5 x STS: 16 seconds TU seconds with RW Romberg: Fail eyes closed on uneven. DGI: 09/11 (fall risk) Tandem stance: requires UE support to prevent fall. [id number]: pass/ normal Alternating toe taps: pass/ normal Miscellaneous Goals Short Term Goals In 4 weeks, pt will: 1) Verbalize IND with HEP 2) Improve TUG to 17 seconds with LRAD 3) Improve DGI by 2 points to improve safety 4) Will negotiate 4 4 tall obstacles without LOB on 3/4 trials Retirement Goals In 8 weeks, pt will: 1) Verbalize IND with HEP 2) Improve TUG to 15 seconds with LRAD 3) Improve DGI to 15 points to improve safety 4) Will negotiate 4 6 obstacles without LOB on 3/4 trials 5) Demo 5/5 strength to maximize daily functioning Outpatient Therapy Assessment Impairments Problems/Impairmments Impaired Strength,Impaired Endurance,Impaired Transfers, Impaired Gait Pattern,Impaired Walking,Impaired Standing, Impaired Stair Climbing, Impaired Incline Stepping, Impaired Stepping on Uneven Surface,Impaired Squatting, Impaired Bending,Impaired Recreational Activities, Impaired Balance,Impaired DGI Score,Impaired TUG Time Prognosis Rehab Potential Good Comment Pt presents with impaired balance and impaired safety awareness. Pt's objective measures (TUG, 5xSTS, DGI, and Romberg) all put him at an increased risk for falls. Pt would benefit from skilled OP PT to address deficits. Clinical Impression Consistent with Diagnosis Yes Outpatient Therapy Plan of Care Treatment Plan May Include Therapeutic Exercise Including Home Yes Exercise Program Manual Therapy Techniques Yes Neuromuscular Re-education Yes Therapeutic Activities to Return to Yes Previous Functional/Work Level Gait Training Yes ADL/Self Care Education Yes Eval/Re-Eval Yes Frequency Times per week 2-3 times Duration Number of Weeks 6-8 weeks Addendums This patient is a candidate for social No or vocational rehab? Patient/Guardian verbally acknowledges Yes understanding of treatment program and consents to further treatment? Patient/Guardian verbally acknowledges Yes understanding of diagnosis, prognosis and goals for treatment? Eval Complexity PT Charges 21790 - Moderate Complexity Shoulder/Elbow Eval Shoulder Objective Measurements Elbow Objective Measurements PHYSICIAN CERTIFICATION: I certify the specified therapy services for Efrain Maldonado are required, authorized, and reviewed every 30 days.
== END 2024-09-02 23:59 | disposition home or self-care (01) ==
LOC: PT 08:00
PROVIDERS: Visit Provider Internal Medicine
DX: R26.81 Unsteadiness on feet (principal); R53.1 Weakness
CPT/HCPCS: 97110; 97112; 97163; 97530

== ENCOUNTER 2024-09-14 12:20 | Outpatient (CLI) | payer MEDICARE, SELFPAY ==
[2024-09-14 13:35] LABS: Anion Gap 13.6 mEq/L (5-15); Blood Urea Nitrogen 20 mg/dl (9-20); Calcium 9.4 mg/dl (8.4-10.2); Carbon Dioxide 27 mmol/L (22.0-30.0); Chloride 99 mmol/L (98-107); Estimated Glomerular Filt Rate 74 ml/min (>60); GFR (African American) 89 ML/MIN (>60); Glucose 98 mg/dl (74-100); Potassium 4.6 mmoL/L (3.5-5.1); Sodium 135 mmol/L (136-145)
== END 2024-09-14 23:59 | disposition home or self-care (01) ==
LOC: LAB 12:21
PROVIDERS: Nurse Practitioner Family; PCP Internal Medicine; Visit Provider Obstetrics & Gynecology
DX: I65.23 Occlusion and stenosis of bilateral carotid arteries (principal); R40.0 Somnolence; G47.33 Obstructive sleep apnea (adult) (pediatric)
CPT/HCPCS: 36415; 80048

== ENCOUNTER 2024-11-03 09:08 | Outpatient (CLI) | payer MEDICARE, SELFPAY ==
[2024-11-03 19:09] LABS: Hemoglobin A1C 5.4 % (4.0-6.0)
[2024-11-03 19:16] LABS: Microalbumin/Creatinine Ratio 4.4; Prostate Specific Ag Screen 0.8 ng/ml (0.0-4.0)
[2024-11-03 19:21] LABS: Creatinine,Urine Random 205 mg/dL (Not Estab.)
== END 2024-11-03 23:59 | disposition home or self-care (01) ==
LOC: LAB.DROPOF 11-04 09:09
PROVIDERS: PCP Internal Medicine; Visit Provider Internal Medicine
DX: I10 Essential (primary) hypertension (principal); Z12.5 Encounter for screening for malignant neoplasm of prostate; Z13.1 Encounter for screening for diabetes mellitus
CPT/HCPCS: 82043; 82570; 83036; G0103

== ENCOUNTER 2024-12-26 09:38 | Outpatient (CLI) | payer MEDICARE, SELFPAY ==
[2024-12-26 09:47] LABS: Microscopic, Urine URINE MICROSCOPIC (MICROSCOPIC)
[2024-12-26 10:20] LABS: Hematocrit 40.1 % (42.0-52.0); Hemoglobin 13.4 g/dL (14.1-18.0); Mean Corpuscular HGB Conc 33.4 g/dL (31.8-35.4); Mean Corpuscular Hemoglobin 31.7 pg (27.0-31.2); Mean Corpuscular Volume 94.8 fl (80-94); Platelet Count 222 K/mm3 (142-424); Red Blood Count 4.23 M/mm3 (4.60-6.20); Red Cell Distribution Width 12.7 % (11.5-17.5); White Blood Count 6.7 K/mm3 (4.8-10.8)
[2024-12-26 10:44] LABS: Total Protein,Urine Random < 5.0 mg/dL (0.0-12.0)
[2024-12-26 10:48] LABS: Albumin Level 4.9 g/dl (3.5-5.0); Blood Urea Nitrogen 26 mg/dl (9-20); Carbon Dioxide 28 mmol/L (22.0-30.0); Chloride 102 mmol/L (98-107); Estimated Glomerular Filt Rate 60 ml/min (>60); GFR (African American) 72 ML/MIN (>60); Glucose 95 mg/dl (74-100); Phosphorous 3.3 mg/dl (2.5-4.5); Sodium 139 mmol/L (136-145)
[2024-12-26 10:52] LABS: Anion Gap 13.4 mEq/L (5-15); Potassium 4.4 mmoL/L (3.5-5.1)
[2024-12-26 11:00] LABS: Creatinine,Urine Random 425 mg/dL (Not Estab.); Intact Parathyroid Hormone 95.9 pg/mL (7.5-53.5)
[2024-12-26 11:07] LABS: 25-OH Vitamin D, Total 48.8 ng/mL (30-100)
[2024-12-26 11:12] LABS: Appearance,Urine Clear (Clear); Blood, Urine Negative (Negative); Color,Urine Dark Yellow (Yellow); Glucose,Urine (UA) M (Negative); Ketones,Urine Negative (Negative); Nitrate,Urine Negative (Negative); PH,Urine 5.5 (5.0-8.5); Protein,Urine 1+ (Negative)
[2024-12-26 11:13] LABS: Bilirubin,Urine Negative (Negative); Leukocyte Esterase,Urine Negative (Negative); Urobilinogen,Urine 0.2 EU/dl (0.2); WBC,Urine Occasional #/hpf (0-3)
== END 2024-12-26 23:59 | disposition home or self-care (01) ==
LOC: LAB 09:39
PROVIDERS: PCP Internal Medicine; Visit Provider Nurse Practitioner
DX: N18.30 Chronic kidney disease, stage 3 unspecified (principal); E55.9 Vitamin D deficiency, unspecified
CPT/HCPCS: 36415; 80069; 81001; 82306; 82570; 83970; 84156; 85027

== ENCOUNTER 2025-03-02 09:10 | Outpatient (CLI) | payer MEDICARE, SELFPAY ==
--- NOTE | 2025-03-02 10:00 | CT_ITS ---
FINAL REPORT TECHNIQUE: Axial CT images of the chest were obtained without contrast. Low-dose protocol was utilized. This study was performed with techniques to keep radiation doses as low as reasonably achievable (ALARA). Individualized dose reduction techniques using automated exposure control or adjustment of mA and/or kV according to the patient's size were employed. CLINICAL HISTORY: lung cancer screening, former smoker (quit 6 yrs ago), smoked 1 1/2 pack per day for 10 yrs. exposed to second hand smoke COMPARISON: None FINDINGS: CT CHEST WITHOUT, LOW DOSE SCREENING CT Di Vol: 2.90 mGy DLP: 100.03 mGy*cm There is no axillary, mediastinal, or hilar adenopathy. The heart size is normal. There are dense coronary artery calcifications. There is no pleural or pericardial effusion. The lung windows show a 3 mm noncalcified nodule in the posterior right upper lobe, well-seen on image 32 of series 4. Limited images of the upper abdomen demonstrate no acute findings. IMPRESSION: 3 mm right upper lobe nodule. LR Category 2S: 12 month follow-up low-dose chest CT is recommended per Fleischner criteria. Modifier S: Dense coronary artery calcifications. Reviewed, Interpreted and Dictated by Nic Mancera MD Transcribed by Neha Arreola Authenticated and [facility]
== END 2025-03-02 23:59 | disposition home or self-care (01) ==
LOC: RAD 09:10
PROVIDERS: PCP Family Medicine; Visit Provider Family Medicine
DX: R91.1 Solitary pulmonary nodule (principal); F17.210 Nicotine dependence, cigarettes, uncomplicated; Z12.2 Encounter for screening for malignant neoplasm of respiratory organs
CPT/HCPCS: 71271

== ENCOUNTER 2025-03-19 17:01 | Inpatient (IN) | payer MEDICARE, SELFPAY ==
[2025-03-19] VITALS (10 sets, daily range): BP systolic 123–137; BP diastolic 69–80; PULSE 63–72; RESP 13–17; TEMP 36.6–36.8; O2SAT 96–100; BMI 29.2; BMI 29.1
--- NOTE | 2025-03-19 17:05 | ECG_ITS ---
APPROVED REPORT Exam: Resting ECG HR:75 bpm ECG Measurements Heart Rate 75 AXES VT 172 P 73 QRSd 92 QRS 1 QT 374 T 70 QTc 403 Conclusion SINUS RHYTHM WITH OCCASIONAL SUPRAVENTRICULAR PREMATURE COMPLEXES BORDERLINE ECG WARNING: DATA QUALITY MAY AFFECT INTERPRETATION UNCONFIRMED REPORT Electronically signed by : Ivan Clifford, 03/21/2025 23:14:52
--- OUTSIDE RECORDS SUMMARY | 2025-03-19 17:09 | XMS_ITS ---
Author Organization Unknown Encounters Encounter Type Performer Location Encounter Date Encoun ter Notes virtual Aislinn Salas - [id number]:22.00 0Z no notes virtual [employer] User - [id number] :22.000Z no notes virtual [employer] User - [id number] :02.000Z no notes virtual [employer] User - [id number] :12.000Z no notes virtual Humbertorenuka Brandon - [id number]:28.000 Z no notes Patient Care team information Name Category Status Period Participants - - Proposed period not known -
--- NOTE | 2025-03-19 17:16 | XR_ITS ---
PROCEDURE INFORMATION: Exam: XR Chest Exam date and time: 03/19/2025 5:20 PM Age: 69 years old Clinical indication: Dyspnea TECHNIQUE: Imaging protocol: Radiologic exam of the chest. Views: 1 view. COMPARISON: CT LUNG SCREENING 03/02/2025 9:16 AM FINDINGS: Lungs: Lung volumes are mildly diminished. The lungs appear clear. No focal areas of consolidation. Pleural spaces: No pleural effusions. Negative for pneumothorax. Heart/Mediastinum: Cardiac silhouette and pulmonary vasculature are within range of normal. Bones/joints: There is no evidence of acute fracture. The thoracic spine is normal. IMPRESSION: 1. Diminished lung volumes. 2. Otherwise, negative for an acute cardiopulmonary abnormality.
--- NOTE | 2025-03-19 17:20 | ED_ITS ---
Discharge Plan Disposition Patient Disposition: Admitted Prescriptions Prescriptions: No Action divalproex 125 mg capsule, delayed rel sprinkle 500 mg PO HS MDD 500 mg 90 Days Qty: 360 3RF ranolazine 1,000 mg tablet extended release 12 hr 1,000 mg PO BID 90 Days Qty: 180 3RF fluticasone propionate [Flonase Allergy Relief] 50 mcg/actuation spray,suspension 1 spray intranasal BID Qty: 16 3RF Rx Instructions: administer into each nostril azelastine 137 mcg (0.1 %) spray,non-aerosol 1 spray intranasal BID Qty: 30 2RF Rx Instructions: administer into each nostril for 1 week amoxicillin-pot clavulanate 875-125 mg tablet 1 tab PO BID Qty: 14 0RF metformin 500 mg tablet 500 mg PO BID 90 Days Qty: 180 4RF lacosamide 150 mg tablet 150 mg PO BID 90 Days Qty: 180 4RF sildenafil [Viagra] 50 mg tablet 50 mg PO .PRN Qty: 30 2RF chlorthalidone 25 mg tablet 25 mg PO DAILY 90 Days Qty: 90 3RF potassium chloride 10 mEq tablet extended release 10 meq PO DAILY 90 Days Qty: 90 2RF clopidogrel 75 mg tablet See Rx Instructions .ROUTE .COMPLEX Qty: 90 4RF Dose Instruction: TAKE 1 TABLET BY MOUTH DAILY FOR ANTIPLATELET Rx Instructions: TAKE 1 TABLET BY MOUTH DAILY FOR ANTIPLATELET quetiapine 50 mg tablet See Rx Instructions .ROUTE .COMPLEX Qty: 90 0RF Dose Instruction: TAKE 1 TABLET ORALLY EVERY DAY AT BEDTIME Rx Instructions: TAKE 1 TABLET ORALLY EVERY DAY AT BEDTIME prochlorperazine maleate 10 mg tablet 10 mg PO Q8H PRN (Reason: nausea and vomiting) Qty: 90 1RF levocetirizine 5 mg tablet 5 mg PO DAILY Qty: 120 4RF atorvastatin 80 mg tablet 80 mg PO DAILY 90 Days Qty: 90 4RF cholecalciferol (vitamin D3) 25 mcg (1,000 unit) capsule 25 mcg PO DAILY 90 Days Qty: 90 4RF hydrocodone-acetaminophen 7.5-325 mg tablet 1 tab PO QID PRN (Reason: pain) Qty: 120 0RF metoprolol succinate 50 mg tablet extended release 24 hr 50 mg PO DAILY 90 Days Qty: 90 4RF aspirin 81 MG tablet,chewable 81 mg PO DAILY Referrals Follow up/Referrals: Provider,Referral, [Referring, Medical] - See instructions Clinical Impressions Clinical Impression: Chest pain, Headache, Acute hyponatremia Print Language Print Language: Romanian Discharge ED Provider: Stacie Clifford HPI General Chief Complaint: Chest Pain Stated Complaint: cp Time Seen by Provider: 03/19/25 17:12 Mode of Arrival: Wheelchair Source of Information: Patient Description of Symptoms (Recalled from ER Triage Doc. by RN): Pt reports CP with radiation to left arm, that started this date. Pt also c/o PIÑA, N/V. Pt rates pain 8/10 and sharp. History of Present Illness HPI narrative: Patient is a 69-year-old male with known history of coronary artery disease has had 4 stents in the past most recent heart cath he states was several years ago is accompanied by his significant other who states that he also has some dementia at baseline. She states that he has chronic chest pain as well as chronic headaches the patient complains of both today. She states that his chest pain is at a proportion to what his has been in the past which is why he came to the emergency department today. He states it started about 5 hours ago has been constant. He has exertional took some nitroglycerin without any significant improvement still is having the chest pain at the moment. No diaphoresis or shortness of breath associated with this. Headache is chronic in at his baseline according to the significant other. Related Data Home Medications ?Medication ?Instructions ?Recorded ?Confirmed aspirin 81 mg chewable tablet 81 mg PO DAILY HEART HEA LTH 03/11/03/10/25 Previous Rx's ?Medication ?Instructions ?Recorded divalproex 125 mg capsule,delayed 500 mg (4 x 125 mg) PO HS History 09/22/24 release sprinkle of seizures, headache 90 day s #360 caps ranolazine 1,000 mg 1,000 mg PO BID 90 days #180 tabs 09/22/24 tablet,extended release,12 hr metformin 500 mg tablet 500 mg PO BID 90 days #180 t abs 10/17/24 lacosamide 150 mg tablet 150 mg PO BID 90 days #180 t abs 10/31/24 sildenafil 50 mg tablet (Viagra) 50 mg PO .PRN #30 tab s 11/08/24 chlorthalidone 25 mg tablet 25 mg PO DAILY 90 days #90 tabs 11/14/24 potassium chloride 10 mEq 10 meq PO DAILY 90 days #90 tabs 11/14/24 tablet,extended release clopidogrel 75 mg tablet See Rx Instructions .Route 0 12/22/24 .COMPLEX #90 tabs prochlorperazine maleate 10 mg 10 mg PO Q8H PRN nausea and 01/02/25 tablet vomiting #90 tabs quetiapine 50 mg tablet See Rx Instructions .Route 0 01/02/25 .COMPLEX #90 tabs levocetirizine 5 mg tablet 5 mg PO DAILY #120 tabs atorvastatin 80 mg tablet 80 mg PO DAILY 90 days #90 t abs 01/17/25 cholecalciferol (vitamin D3) 25 25 mcg PO DAILY 90 day s #90 caps 01/25/25 mcg (1,000 unit) capsule fluticasone propionate 50 1 spray intranasal BID #16 g laney 02/02/25 mcg/actuation nasal spray,suspension (Flonase Allergy Relief) hydrocodone 7.5 mg-acetaminophen 1 tab PO QID PRN pain #120 tabs 03/02/25 325 mg tablet amoxicillin 875 mg-potassium 1 tab PO BID #14 tabs clavulanate 125 mg tablet azelastine 137 mcg (0.1 %) nasal 1 spray intranasal BI D #30 mL 03/10/25 spray metoprolol succinate 50 mg 50 mg PO DAILY 90 days #90 tabs 03/14/25 tablet,extended release 24 hr Allergies Allergy/AdvReac Type Severity Reaction Status Date / Time isosorbide (From Imdur) AdvReac Mild Verified 03/10/25 08:20 PFSH PFS Disclaimer: The information contained in this section may have been updated after the patient was seen, as this information can be updated by other users. Medical History Cigarette smoker 40 pack years, quit in 2014 Diabetes SNHL (sensorineural hearing loss) Fluid level behind tympanic membrane of both ears Worsening headaches Hearing loss Poor balance Elevated serum creatinine Decreased GFR SOB (shortness of breath) on exertion Angina pectoris Elevated left ventricular end-diastolic pressure (LVEDP) Colon cancer screening Abnormal findings on diagnostic imaging of heart and coronary circulation Typical angina Diastolic dysfunction Encephalopathy chronic Major depressive disorder Lesion of brain Acute renal failure Chest pain Dyspnea Palpitations Sinus tachycardia Vitamin D deficiency Orthopnea COPD exacerbation Constipation Abdominal pain Near syncope Headache Lightheadedness SOB (shortness of breath) Other director long term care (current) drug therapy Chest pain, atypical CAD (coronary artery disease) Acute exacerbation of chronic low back pain Carotid artery disease Hypertensive disorder Hyperlipidemia Coronary arteriosclerosis Surgical History History of cardiac catheterization Stented coronary artery Family History Other Coronary artery disease Diabetes Heart attack Hyperlipidemia Hypertension No significant family history Stroke Social History Smoking Status: Smoker, status unknown tobacco type: cigarettes packs per day: 1 years smoked: 40 how long ago did patient quit smokin years ago second hand exposure: No alcohol intake: former counseling provided: provider counseling substance use type: denies use current occupational status: retired Travel in the last 8 weeks?: None household members: significant other housing: house number of children: 3 current occupational exposures/hazards: No caffeine: Yes Have you lived/traveled outside [place] in past 30 days?: No Contact w/someone who lives/traveled outside [place] past 30 days?: No Exposure to someone with infectious disease in past 14 days?: No Do you have a fever (greater than 100.4 F or 38 C)?: No Have you tested positive for COVID-19?: No Exposed to someone with COVID-19 in past 14 days?: No Do you have a sore throat?: No Do you have a cough?: No Do you have any weakness?: No Do you have any diarrhea?: No Are you experiencing any unusual bleeding?: No Do you have any muscle aches/pain?: No Do you have any abdominal pain?: No Are you experiencing loss of taste or smell?: No Other Medical History Have you received the Flu Vaccine for this season: No Have you received the Pneumonia Vaccine: Yes ROS Obtained: Yes All systems reviewed & no additional complaints except as documented Physical Exam General General appearance: alert Respiratory Respiratory exam: Present normal lung sounds bilaterally; Absent respiratory distress Cardiovascular Cardiovascular exam: Present regular rate; Absent normal rhythm Neurological Exam Neurological exam: Present alert and oriented X3 HEART Score HEART Score HEART Score assessment performed?: Yes History (anamnesis): Moderately suspicious ECG: Non-specific disturbance Age: >65 years Risk factors: Atherosclerosis history Troponin: </= normal limit HEART Score: 6 Critical Care Critical Care Time Critical Care Time: Yes Attestation: On 03/19/25, the high probability of a clinically significant, sudden or life threatening deterioration of the following system(s) required my full and direct attention, intervention and personal management. The time I documented below is in addition to time spent performing reported procedures but includes the following listed in this critical care notation. Total Time Total Critical Care Time: 35 Medical Decision Making Taco Inquiry Pt receiving controlled substance: No Vital Signs Vital Signs: 03/19/25 17:03 03/19/25 17:14 03/19/25 17:30 Temperature 97.8 F Temperature Source Oral Pulse Rate 66 70 Pulse Rate [Left] 68 Respiratory Rate 14 15 Blood Pressure 127/78 125/69 Blood Pressure [Right Arm] 127/78 Blood Pressure Mean [Right Arm] 94 Blood Pressure Source [Right Arm] Automatic Cuff 02 Sat by Pulse Oximetry 98 98 98 Oxygen Delivery Method Room Air 03/19/25 18:00 03/19/25 18:30 Temperature Temperature Source Pulse Rate 70 63 Pulse Rate [Left] Respiratory Rate 13 15 Blood Pressure 132/71 123/71 Blood Pressure [Right Arm] Blood Pressure Mean [Right Arm] Blood Pressure Source [Right Arm] 02 Sat by Pulse Oximetry 98 98 Oxygen Delivery Method Room Air Lab Data Lab results reviewed: Yes I reviewed the patient's lab results. Labs: Lab Results 03/19/25 16:54: WBC 9.6, RBC 4.35 L, Hgb 13.1 L, Hct 37.8 L, MCV 86.9, MCH 30.1, MCHC 34.7, RDW 13.0, Plt Count 312, MPV 9.3, Neut % (Auto) 56.7, Lymph % (Auto) 25.4, Gaines % (Auto) 12.9 H, Eos % (Auto) 1.7, Baso % (Auto) 0.6, Neut # (Auto) 5.4, Lymph # (Auto) 2.4, Gaines # (Auto) 1.2 H, Eos # (Auto) 0.2, Baso # (Auto) 0.1, D-Dimer 0.73 H, Sodium 124 L, Potassium 3.7, Chloride 87 L, Carbon Dioxide 26, Anion Gap 14.7, BUN 23 H, Creatinine 1.30 H, Estimated Creat Clear 65, E stimated GFR 55 L, Est GFR ( Amer) 66, Glucose 108 H, Calcium 9.8, Total Bilirubin 0.5, AST 31, ALT 18, Alkaline Phosphatase 43, Troponin I < 0.01, Total Protein 7.6, Albumin 4.6, Globulin 3.0, Albumin/Globulin Ratio 1.5 03/19/25 16:54 03/19/25 16:54 Response Orders (Tests/Meds): ED MEDICATIONS Discontinued Medications Generic Name Dose Route Start Last Admin Trade Name Freq PRN Reason Stop Dose Admin Acetaminophen 1,000 mg 03/19/25 17:16 03/19/25 17:23 Acetaminophen 1,000mg/100ml Vial IV 03/19/25 17:17 1,000 mg ONCE ONE Administration Lactated Ringer's 1,000 mls @ 999 mls/hr 03/19/25 17:30 03/19/25 17:23 Lactated Ringer's 1000 Ml Bag IV 03/19/25 18:30 999 mls/hr .Q1H1M FRANK Administration ORDERS Category Date Time Status CXR --portable [XR chest portable] Stat Exams 03/19/25 17:16 Taken CBC w/Auto Diff [Complete Blood Count Auto Diff] Stat Lab 03/19/25 16:54 Completed CMP [Comprehensive Metabolic Panel] Stat Lab 03/19/25 16:54 Completed D-Dimer Stat Lab 03/19/25 16:54 Completed Trop I [Troponin I] Stat Lab 03/19/25 16:54 Completed Troponin I Q3H Lab 03/19/25 20:30 Ordered Troponin I Q3H Lab 03/19/25 23:30 Ordered ECG Data Tracing #1: Attestation: I reviewed this ECG and interpreted as documented below: ECG Narrative: Ventricular rate of 75 sinus rhythm no acute ischemic changes noted no significant conduction abnormalities indeterminate axis MDM Narrative Medical Decision Narrative: Patient with above history and physical presented of chest pain. Cannot utilize pulmonary embolism rule out criteria to rule out a PE will obtain a D-dimer and use years criteria with cutoff of 1.[address] PE. Given the fact this patient is within 8 hours of symptoms will get serial troponins to rule out acute coronary syndrome which I believe is unlikely. EKG is nonischemic. Chest x-ray was performed which I personally interpreted shows no acute cardiopulmonary emergency. Patient will be placed in ED observation status pending second troponin assuming that the first 1 is undetectable. Reassessment 7:13 PM patient still pending second troponin however first set of labs came back and incidentally were found to have a sodium of 124. Patient does have a history of lesions in his brain according to his significant other and has been on multiple medications including quetiapine lacosamide and valproic acid for treatment of this all of which could cause hyponatremia. I have no other explanation for his hyponatremia at the moment but he will need to be admitted given the severity of this. Currently no symptoms from this that I am aware of. No hypertonic saline is indicated for the treatment. He is stable to be evaluated further and worked up by hospital medicine. I spoke with Anselmo with hospital medicine who agreed to admit the patient for further evaluation management. ACS has not given completely ruled out at this point but is unlikely at the moment. From chest pain standpoint aside from the hyponatremia I believe he is stable for outpatient management however will be admitted for this severe hyponatremia.
[2025-03-19] MEDS: ACETAMINOPHEN 1,000MG/100ML VIAL 1000 MG IV (17:23)
[2025-03-19] MEDS: LACTATED RINGERS 1000ML 1,000 ML 999 ML IV (17:23)
[2025-03-19 17:24] LABS: Basophils # 0.1 K/mm3 (0-0.2); Basophils % 0.6 % (0.1-2.0); Eosinophils # 0.2 Kmm3 (0.0-0.4); Eosinophils % 1.7 % (0.1-12.0); Hematocrit 37.8 % (42.0-52.0); Hemoglobin 13.1 g/dL (14.1-18.0); Immature Granulocytes # 0.26 10^3uL; Immature Granulocytes % 2.7 %; Lymphocytes # 2.4 K/mm3 (0.7-4.5); Lymphocytes % 25.4 % (10-50); Mean Corpuscular HGB Conc 34.7 g/dL (31.8-35.4); Mean Corpuscular Hemoglobin 30.1 pg (27.0-31.2); Mean Corpuscular Volume 86.9 fl (80-94); Mean Platelet Volume 9.3 fl (7.4-10.4); Monocytes # 1.2 K/mm3 (0.1-1.0); Monocytes % 12.9 % (1.7-9.3); Neutrophils # 5.4 K/mm3 (1.8-7.8); Neutrophils % 56.7 % (37.0-80.0); Nucleated Red Blood Cells # 0 10^3/uL; Nucleated Red Blood Cells % 0 %; Platelet Count 312 K/mm3 (142-424); Red Blood Count 4.35 M/mm3 (4.60-6.20); White Blood Count 9.6 K/mm3 (4.8-10.8)
[2025-03-19 17:32] LABS: Alanine Aminotransferase 18 U/L (12-78); Albumin Level 4.6 g/dl (3.5-5.0); Albumin/Globulin Ratio 1.5 (1.1-1.8); Alkaline Phosphatase 43 U/L (38-126); Anion Gap 14.7 mEq/L (5-15); Aspartate Amino Transferase 31 U/L (17-59); Bilirubin,Total 0.5 mg/dl (0.2-1.3); Blood Urea Nitrogen 23 mg/dl (9-20); Calcium 9.8 mg/dl (8.4-10.2); Carbon Dioxide 26 mmol/L (22.0-30.0); Chloride 87 mmol/L (98-107); Creatinine Clearance Estimated 65 mL/min (50-200); Estimated Glomerular Filt Rate 55 ml/min (>60); GFR (African American) 66 ML/MIN (>60); Glucose 108 mg/dl (74-100); Potassium 3.7 mmoL/L (3.5-5.1); Sodium 124 mmol/L (136-145); Total Protein,Serum 7.6 g/dl (6.3-8.2)
[2025-03-19 17:36] LABS: D-Dimer 0.73 ug/mL (0.0-0.5)
[2025-03-19 17:48] LABS: Troponin I < 0.01 ng/ml (0.00-0.034)
--- NOTE | 2025-03-19 19:51 | PC.NURSE ---
Notified house pt is being admitted and will need room assignment
--- NOTE | 2025-03-19 20:01 | PC.NURSE ---
Report given to Keagan BISHOP
--- NOTE | 2025-03-19 20:24 | PC.NURSE ---
pt arrived to floor at this time
--- NOTE | 2025-03-19 20:29 | P.HP_ITS ---
<Statement entered by Ivan Alonso MD - 03/20/25 16:57> Rounded on patient after nurse practitioner. Personally examined and interviewed patient. Agree with exam findings and care plan as documented. Concern for SIADH. Urine sodium pending. Review of labs shows sodium of 123. Having confusion and weakness. Case was discussed with ER physician, requesting admission for further management. Medicine decided to admit. Repeat CBC, CMP, magnesium ordered for the morning and repeat serial sodium levels every 8 hours. Correct between 8 to 10 mEq a day. Holding diuretics. Cautiously resume seizure medications. Would benefit from fluid restriction. 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 The significant other noted that he has a history of chronic chest pain and also chronic headaches. Patient has a past history of alcohol and substance abuse, also history of cardiac vascular disease with several stents. Noting a chronic renal insufficiency started since around 07/07/2024. HIs creatinine kicked up with BUN from 16/0.9 to 23/1.30 and now higher. This correlates with a admission related to chest pain and cardiac catheterization. Also noting about that time that Lasix was stopped. Noting that the patient's weights been kind of variable as high as 226 presently at 191. Approximately May 2024 was at 217 pounds. No signs of congestive heart failure at this time and patient is not complaining of chest pain during my exam Mentation evaluation: Patient's significant other (they have been together for 50 years, lived together for last 10 yrs.) tells me that his sundowning is getting worse. Review of chart shows this problem has been addressed for the last 7 months. There has been an increase in Seroquel due to behavior and sundowning. Patient also noted with chronic headaches. Has been on several antiseizure medications including valproic acid. Noted that also patient had been seeing a physician and in note stated that hydrocodone had helped his headaches. Present plan is to have the patient admitted to determine the cause of the new onset hyponatremia question medications and renal status. Awaiting serial troponin results for anything cardiac. D-dimer is slightly elevated but no signs of any shortness of breath. Also will have pharmacology consult to evaluate medications if this hyponatremia cannot be corrected as to what might be a cause on a medication basis. Will admit patient to the floor. Continue to monitor labs and check for any cardiac abnormalities. Physical therapy to evaluate due to unstable walking risk of falls. And will have case management involved to check with significant other about any help that can be done in the home as the patient is becoming more confused with continued sundowning. Also note that the patient has the hydrocodone prescribed for his back pain averages 4 tablets a day. Patient also let the nurse know on the floor that he was having heartburn/reflux symptoms, medication ordered [facility] Disclaimer: The information contained in this section may have been updated after the patient was seen, as this information can be updated by other users. Medical History Cigarette smoker 40 pack years, quit in 2014 Diabetes SNHL (sensorineural hearing loss) Fluid level behind tympanic membrane of both ears Worsening headaches Hearing loss Poor balance Elevated serum creatinine Decreased GFR SOB (shortness of breath) on exertion Angina pectoris Elevated left ventricular end-diastolic pressure (LVEDP) Colon cancer screening Abnormal findings on diagnostic imaging of heart and coronary circulation Typical angina Diastolic dysfunction Encephalopathy chronic Major depressive disorder Lesion of brain Acute renal failure Chest pain Dyspnea Palpitations Sinus tachycardia Vitamin D deficiency Orthopnea COPD exacerbation Constipation Abdominal pain Near syncope Headache Lightheadedness SOB (shortness of breath) Other assisted (current) drug therapy Chest pain, atypical CAD (coronary artery disease) Acute exacerbation of chronic low back pain Carotid artery disease Hypertensive disorder Hyperlipidemia Coronary arteriosclerosis Surgical History History of cardiac catheterization Stented coronary artery Family History Other Coronary artery disease Diabetes Heart attack Hyperlipidemia Hypertension No significant family history Stroke Social History Smoking Status: Smoker, status unknown tobacco type: cigarettes packs per day: 1 years smoked: 40 how long ago did patient quit smokin years ago second hand exposure: No alcohol intake: former counseling provided: provider counseling substance use type: denies use current occupational status: retired Travel in the last 8 weeks?: None household members: significant other housing: house number of children: 3 current occupational exposures/hazards: No caffeine: Yes Have you lived/traveled outside [place] in past 30 days?: No Contact w/someone who lives/traveled outside US past 30 days?: No Exposure to someone with infectious disease in past 14 days?: No Do you have a fever (greater than 100.4 F or 38 C)?: No Have you tested positive for COVID-19?: No Exposed to someone with COVID-19 in past 14 days?: No Do you have a sore throat?: No Do you have a cough?: No Do you have any weakness?: No Do you have any diarrhea?: No Are you experiencing any unusual bleeding?: No Do you have any muscle aches/pain?: No Do you have any abdominal pain?: No Are you experiencing loss of taste or smell?: No Other Medical History Have you received the Flu Vaccine for this season: No Have you received the Pneumonia Vaccine: Yes Review of Systems Review of Systems Review of systems:: pertinent systems reviewed and negative unless documented below Constitutional Constitutional: Reports as per HPI and Reports headache(s) (History of chronic headache) Eyes Eyes: Reports as per HPI Comments: Denies changes in vision ENT Ears, Nose, Mouth, and Throat: Reports as per HPI and Reports headache(s) (History of chronic headache) *Cardiovascular Cardiovascular: Reports as per HPI and Reports chest pain Comments: Patient was complaining of chest pain none at this time *Respiratory Comments: Patient has no cough no signs of difficulty breathing on room air *Gastrointestinal Gastrointestinal: Reports as per HPI *Genitourinary Genitourinary: Reports as per HPI *Musculoskeletal Musculoskeletal: Reports as per HPI and Reports abnormal gait Integumentary/Breasts Skin/Breast: Reports as per HPI *Neurologic Neurologic: Reports as per HPI, Reports abnormal gait, Reports behavioral changes, Reports confusion, Reports headache(s) (History of chronic headache) and Reports memory loss Psychiatric Psychiatric: Reports behavioral changes, Reports confusion and Reports memory loss Endocrine Endocrine: Reports as per HPI Hematologic/Lymphatic Hematologic/Lymphatic: Reports as per HPI Allergic/Immunologic Allergic/Immunologic: Reports as per HPI Meds Home Medications and Allergies Home Medications ?Medication ?Instructions ?Recorded ?Confirmed ?Type aspirin 81 mg chewable tablet 81 mg PO DAILY [facility] 03/11/19 03/19/25 History divalproex 125 mg capsule,delayed 500 mg (4 x 125 mg) PO HS History 09/22/24 03/19/25 Rx release sprinkle of seizures, headache 90 day s #360 caps ranolazine 1,000 mg 1,000 mg PO BID 90 days #180 tabs 09/22/24 03/19/25 Rx tablet,extended release,12 hr metformin 500 mg tablet 500 mg PO BID 90 days #180 t abs 10/17/24 03/19/25 Rx lacosamide 150 mg tablet 150 mg PO BID 90 days #180 t abs 10/31/24 03/19/25 Rx sildenafil 50 mg tablet (Viagra) 50 mg PO .PRN #30 tab s 11/08/24 03/19/25 Rx chlorthalidone 25 mg tablet 25 mg PO DAILY 90 days #90 tabs 11/14/24 03/19/25 Rx potassium chloride 10 mEq 10 meq PO DAILY 90 days #90 tabs 11/14/24 03/19/25 Rx tablet,extended release prochlorperazine maleate 10 mg 10 mg PO Q8H PRN nausea and 01/02/25 03/19/25 Rx tablet vomiting #90 tabs levocetirizine 5 mg tablet 5 mg PO DAILY #120 tabs 03/19/25 Rx atorvastatin 80 mg tablet 80 mg PO DAILY 90 days #90 t abs 01/17/25 03/19/25 Rx cholecalciferol (vitamin D3) 25 25 mcg PO DAILY 90 day s #90 caps 01/25/25 03/19/25 Rx mcg (1,000 unit) capsule fluticasone propionate 50 1 spray intranasal BID #16 g laney 02/02/25 03/19/25 Rx mcg/actuation nasal spray,suspension (Flonase Allergy Relief) hydrocodone 7.5 mg-acetaminophen 1 tab PO QID PRN pain #120 tabs 03/02/25 03/19/25 Rx 325 mg tablet azelastine 137 mcg (0.1 %) nasal 1 spray intranasal BI D #30 mL 03/10/25 03/19/25 Rx spray metoprolol succinate 50 mg 50 mg PO DAILY 90 days #90 tabs 03/14/25 03/19/25 Rx tablet,extended release 24 hr clopidogrel 75 mg tablet 75 mg PO DAILY 03/19/2511/12 History nitroglycerin 0.4 mg sublingual 0.4 mg sublingual N EEDED PRN 03/19/25 03/19/25 History tablet Chest Pain quetiapine 50 mg tablet 50 mg PO HS PRN Insomnia 11/1203/19/25 History New Prescriptions to Start Prescriptions: Allergies Allergy/AdvReac Type Severity Reaction Status Date / Time isosorbide (From Imdur) AdvReac Mild Verified 03/10/25 08:20 Exam Data for Last 24 hours Vital signs and Labs for Last 24 Hours: Temp Pulse Resp BP Pulse Ox O2 Del Method 97.9 F 69 15 136/80 100 Room Air 03/19/25 20:25 03/19/25 20:25 03/19/25 20:25 03/19/25 20:25 03/19/25 19:31 03/19/25 20:25 Laboratory Results - last 24 hr 03/19/25 16:54: WBC 9.6, RBC 4.35 L, Hgb 13.1 L, Hct 37.8 L, MCV 86.9, MCH 30.1, MCHC 34.7, RDW 13.0, Plt Count 312, MPV 9.3, Neut % (Auto) 56.7, Lymph % (Auto) 25.4, [place] % (Auto) 12.9 H, Eos % (Auto) 1.7, Baso % (Auto) 0.6, Neut # (Auto) 5.4, Lymph # (Auto) 2.4, [place] # (Auto) 1.2 H, Eos # (Auto) 0.2, Baso # (Auto) 0.1, D-Dimer 0.73 H, Sodium 124 L, Potassium 3.7, Chloride 87 L, Carbon Dioxide 26, Anion Gap 14.7, BUN 23 H, Creatinine 1.30 H, Estimated Creat Clear 65, Estimated GFR 55 L, Est GFR ( Amer) 66, Glucose 108 H, Calcium 9.8, Total Bilirubin 0.5, AST 31, ALT 18, Alkaline Phosphatase 43, Troponin I < 0.01, Total Protein 7.6, Albumin 4.6, Globulin 3.0, Albumin/Globulin Ratio 1.5 I & O for Last 24 hours: Intake & Output 05/30/03/18/25 03/19/25 03/20/25 05:59 05:59 05:59 05:59 Weight 192 lb Radiology Reports for the Last 24 Hours: Chest x-ray really no acute findings Constitutional Constitutional: mild distress and cooperative Comments: Patient is calm he is cooperative but does appear to be slightly blunted as far as mental response. Most questions being answered by significant other who is at bedside *Routine HEENT Exam Head: Present normocephalic Eye: Present EOMI, PERRL and normal accommodation ENT: Present mucous membranes moist *Routine Neck Exam Neck: Present supple and full ROM Routine Chest/Breast/Axilla Exam Comments: No signs of chest wall injury or pain, no lip adenopathy found *Routine Respiratory Exam Respiratory: Present CTA bilaterally, normal respiratory effort, able to speak in complete sentences and symmetric chest movement *Routine Cardiovascular Exam Cardiovascular: Present RRR, Normal S1 and Normal S2 *Routine Abdominal Exam Abdominal: Present soft and normoactive bowel sounds Comments: No tenderness on abdominal exam *Routine Rectal Exam Rectal:: deferred *Routine Genitalia Exam Genitalia:: deferred *Routine Extremities Exam Comments: Examination of arms and legs find no edema brisk capillary refill equal strength bilaterally equal sensation bilateral Routine Back/Spine/Pelvis Exam Back/Spine: Present full ROM Comments: Patient has a long history of back pain being treated with narcotics I did not stand him during this exam but he was able to sit up without assistance he is able to turn both directions and did not appear to be in any discomfort *Routine Skin Exam Skin: Present intact, dry and warm Comments: No abnormal bruising or lesions found on skin exam *Routine Neurological Exam Neurological: Present alert, oriented X3, CN II-XII intact, normal reflexes, vision grossly intact, hearing grossly intact and normal speech Comments: Patient shows no obvious signs of dementia while talking to him slowly. But he does seem blunted looks as if he is a little confused when you are talking to him. But was able to respond appropriately to me. Routine Psychiatric Exam Psychiatric: Present cooperative H&P: Result Impressions 1. Chest pain, mid sternum history of cardiovascular disease with stents 2. Decreased renal function over past 7 months with sudden onset of hyponatremia of unknown cause 3. Dementia with sundowning by history slowly worsening. On multiple medications that may be contributing to hyponatremia 4. Chronic back pain and over the past 8 months headaches on a regular basis has hydrocodone ordered for the back pain. Imaging and Cardiology Chest x-ray: Status: image reviewed by me Additional comments: No acute finding Assessment and Plan *Assessment and plan (1) Chest pain: Status: Acute Qualifiers: Chest pain type: precordial pain Qualified Code(s): R07.2 - Precordial pain Category: Medical Code(s): R07.9 - Chest pain, unspecified (2) Acute hyponatremia: Status: Acute Category: Medical Code(s): E87.1 - Hypo-osmolality and hyponatremia (3) Decreased GFR: Status: Acute Category: Medical Code(s): R94.4 - Abnormal results of kidney function studies (4) Headache: Status: Acute Qualifiers: Headache chronicity pattern: episodic headache Headache type: unspecified Intractability: not intractable Qualified Code(s): R51.9 - Headache, unspecified Category: Medical Code(s): R51.9 - Headache, unspecified (5) Dementia: Status: Chronic Qualifiers: Alzheimer's disease onset: late onset Dementia behavioral or psychological symptom: with mood disturbance Dementia severity: moderate Dementia type: Alzheimer's Qualified Code(s): G30.1 - Alzheimer's disease with late onset; F02.B3 - Dementia in other diseases classified elsewhere, moderate, with mood disturbance Category: Medical Code(s): F03.90 - Unspecified dementia, unspecified severity, without behavioral disturbance, psychotic disturbance, mood disturbance, and anxiety (6) History of seizure: Status: Resolved Category: Medical Code(s): Z87.898 - Personal history of other specified conditions (7) Diabetes: Status: Acute Qualifiers: Diabetes mellitus complication status: with other specified complication 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: without assisted use Diabetes mellitus type: type 2 Qualified Code(s): E11.69 - Type 2 diabetes mellitus with other specified complication Category: Medical Code(s): E11.9 - Type 2 diabetes mellitus without complications (8) Low back pain: Status: Acute Qualifiers: Back pain laterality: unspecified Chronicity: unspecified Sciatica laterality: sciatica laterality unspecified Sciatica presence: with sciatica Qualified Code(s): M54.40 - Lumbago with sciatica, unspecified side Category: Medical Code(s): M54.50 - Low back pain, unspecified (9) Coronary arteriosclerosis: Status: Chronic Category: Medical Code(s): I25.10 - Atherosclerotic heart disease of [place] coronary artery without angina pectoris (10) Dizziness: Status: Acute Category: Medical Code(s): R42 - Dizziness and giddiness (11) Abnormal finding on MRI of brain: Problem Comment: History, findings on brain MRI in January 2022, work-up results and clinical course consistent with acute encephalopathy in the setting of symptomatic hypertension over imposed on chronic multifactorial dementia. 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 Atypical, focal enhancement including meningeal enhancement can be seen with PRESS. Extensive work-up failed to demonstrate another etiology He also has history of left-sided numbness, weakness in 2014 and was admitted to [facility]?neurology. 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 Cannot exclude acute sinus thrombosis with partial revascularization. Status: Chronic Category: Medical Code(s): R90.89 - Other abnormal findings on diagnostic imaging of central nervous system Plan 1. Patient will be admitted to the floor continue to evaluate for any abnormal labs.. Pharmacology consult to look at medications that could be causing hyponatremia and with evaluation of renal function.. Patient is diabetic but will keep on a regular diet at this time to increase the amount of sodium. Noted elevated PTH, also increased D-dimer. Will have cardiac evaluation to make sure that cardiology does not deem necessary for any type of testing. 2. If hyponatremia was to worsen the balance of changing medications for his seizure activity could be complicated. Plus may be possible further evaluation of lesions of the brain making sure the pituitary is not involved question SAIDH.
[2025-03-19 20:42] LABS: Troponin I < 0.01 ng/ml (0.00-0.034)
[2025-03-19] MEDS: FAMOTIDINE 20MG TABLET 40 MG PO (21:22)
[2025-03-20] VITALS: PULSE 70
[2025-03-20 00:04] LABS: Troponin I < 0.01 ng/ml (0.00-0.034)
[2025-03-20 04:00] VITALS: BP 144/78; PULSE 63; PULSE 70; RESP 17; TEMP 36.9; O2SAT 98; BMI 29.3
--- NOTE | 2025-03-20 06:25 | PC.NURSE ---
Pt A&OX4 and has tolerated room air. Lung sounds clear and bowel sounds active. He has ambulated the room with standby assist. He did complain of heart burn once and was medicated per DEC. Seizure pads and bed alarm in place. No complaints at this time, call light within reach.
[2025-03-20 06:48] LABS: Eosinophils # 0.2 Kmm3 (0.0-0.4); Eosinophils % 2.6 % (0.1-12.0); Nucleated Red Blood Cells # 0 10^3/uL; Nucleated Red Blood Cells % 0 %
[2025-03-20 07:06] LABS: Albumin Level 3.8 g/dl (3.5-5.0); Chloride 90 mmol/L (98-107); Sodium 123 mmol/L (136-145)
[2025-03-20 07:07] LABS: Potassium 3.5 mmoL/L (3.5-5.1)
[2025-03-20 07:09] LABS: Alanine Aminotransferase 11 U/L (12-78); Anion Gap 11.5 mEq/L (5-15); Aspartate Amino Transferase 26 U/L (17-59); Blood Urea Nitrogen 18 mg/dl (9-20); Carbon Dioxide 25 mmol/L (22.0-30.0); Creatinine Clearance Estimated 85 mL/min (50-200); Estimated Glomerular Filt Rate 74 ml/min (>60); GFR (African American) 89 ML/MIN (>60)
[2025-03-20 07:10] LABS: Albumin/Globulin Ratio 1.7 (1.1-1.8); Alkaline Phosphatase 37 U/L (38-126); Bilirubin,Total 0.3 mg/dl (0.2-1.3); Globulin 2.3 g/dL (1.3-3.2); Glucose 86 mg/dl (74-100); Total Protein,Serum 6.1 g/dl (6.3-8.2)
[2025-03-20 07:43] LABS: Magnesium 1.3 mg/dl (1.6-2.3)
[2025-03-20 07:45] LABS: Basophils % 0.6 % (0.1-2.0); Immature Granulocytes # 0.12 10^3uL; Immature Granulocytes % 1.7 %; Lymphocytes # 1.8 K/mm3 (0.7-4.5); Mean Corpuscular HGB Conc 34.1 g/dL (31.8-35.4); Mean Corpuscular Hemoglobin 29.6 pg (27.0-31.2); Mean Corpuscular Volume 86.7 fl (80-94); Mean Platelet Volume 9.6 fl (7.4-10.4); Monocytes # 0.9 K/mm3 (0.1-1.0); Monocytes % 12.8 % (1.7-9.3); Neutrophils % 57.3 % (37.0-80.0); Platelet Count 261 K/mm3 (142-424); Red Blood Count 3.92 M/mm3 (4.60-6.20); Red Cell Distribution Width 13.1 % (11.5-17.5)
[2025-03-20 07:52] LABS: Hemoglobin 11.6 g/dL (14.1-18.0)
[2025-03-20] MEDS: ACETAMINOPHEN 325MG TAB 650 MG PO (07:52)
[2025-03-20] MEDS: ONDANSETRON 4MG/2ML VIAL 4 MG IV (07:53)
[2025-03-20 08:00] VITALS: BP 129/63; PULSE 66; PULSE 70; RESP 18; TEMP 36.7; O2SAT 99
--- NOTE | 2025-03-20 10:25 | HMH.PTEV ---
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 The significant other noted that he has a history of chronic chest pain and also chronic headaches. Patient has a past history of alcohol and substance abuse, also history of cardiac vascular disease with several stents. Subjective Subjective Pt reports he lives with his friend in a single-story home. Pt reports he is usually IND with mobility but his friend helps with walking sometimes. Pt uses a RW. Pt not driving. New diagnosis of No cancer in past 12 months? [facility] How much help from another person do you currently need... Turning from your None back to your side while in a flat bed without using bedrails? Moving from lying on None back to sitting on the side of a flat bed without using bedrails? Moving to and from a None bed to a chair ( including a wheelchair)? Standing up from a None chair using your arms? (e.g., wheelchair, bedside chair) Walking in hospital A little room? Climbing 3-5 steps A little with a railing? Mobility Score [address] [facility] Mobility 7 Walk 25 feet or more Mobility Calculator Rehab PT IP Eval Objective Appearance Patient Behavior Appropriate,Cooperative Patient Orientation Person,Situation Difficulty following none instructions Speech Pattern Clear Ambulation Patient Able to Yes Ambulate Ambulation Observation IP General Gait Shuffling Step Pattern Observation Ambulation Distance 50 (feet) Ambulation Assistive Standard Walker Device Ambulation Ability Supervision/Stand by Balance Ability to Arise Able, uses arms to help Sitting Balance Steady, safe Standing Balance Steady, wide stance Dynamic Sitting Good Balance Ability Dynamic Standing Good Balance Ability Transfers Bed Transfer Ability Independent Sit to Stand Bed Supervision/Stand by Transfer Ability Sit to Stand Chair Supervision/Stand by Transfer Ability Rehab PT IP prob,goals,plan Problems Date of Evaluation: 03/20/25 Rehab Potential Rehab Potential Innapropriate for Skilled Therapy Discharge Plan PT Discharge Plan Pt most appropriate to d/c home when deemed medically necessary d/t current level of mobility, home set-up, and friend support. PT recommending HH to address strength and endurance deficits. Pt not appropriate for skilled acute care PT at this time d/t pt?s mobility being at baseline. Eval Complexity Eval Charge Codes 56934 - Moderate Complexity PHYSICIAN CERTIFICATION: I certify the specified therapy services for Efrain Maldonado JR are required, authorized, and reviewed every 30 days.
--- NOTE | 2025-03-20 10:43 | EXP.CARD.CON ---
History of Present Illness History of Present Illness Consult date: 03/20/25 Requesting physician: Ivan Alonso Consult reason: chest pain Chief complaint: chest pain History of present illness: This is a 69-year-old white male with past medical history of dementia, CAD and seizures/encephalopathy who presented to emergency department with complaints of headache and chest pain. Patient reports he suffers from both chronic headaches and chronic chest pain. Upon presentation to emergency department initial EKG shows sinus rhythm with occasional PVCs at a rate of 75 without acute ischemic changes noted. A chest x-ray was obtained which showed diminished lung volumes but otherwise negative for acute cardiopulmonary process. Initial labs as follow: WBC 9.6, hemoglobin 13.1, D-dimer elevated at 0.75, sodium 124, BUN 23, creatinine 1.3 trending down to 1 on repeat labs and serial troponins negative. Patient was admitted for hyponatremia and cardiology evaluation. This morning patient is resting comfortably in bed and denies chest pain. He reports he continues to have a headache. [facility] Disclaimer: The information contained in this section may have been updated after the patient was seen, as this information can be updated by other users. Medical History Cigarette smoker 40 pack years, quit in 2014 Diabetes SNHL (sensorineural hearing loss) Fluid level behind tympanic membrane of both ears Worsening headaches Hearing loss Poor balance Elevated serum creatinine Decreased GFR SOB (shortness of breath) on exertion Angina pectoris Elevated left ventricular end-diastolic pressure (LVEDP) Colon cancer screening Abnormal findings on diagnostic imaging of heart and coronary circulation Typical angina Diastolic dysfunction Encephalopathy chronic Major depressive disorder Lesion of brain Acute renal failure Chest pain Dyspnea Palpitations Sinus tachycardia Vitamin D deficiency Orthopnea COPD exacerbation Constipation Abdominal pain Near syncope Headache Lightheadedness SOB (shortness of breath) Other fpc (current) drug therapy Chest pain, atypical CAD (coronary artery disease) Acute exacerbation of chronic low back pain Carotid artery disease Hypertensive disorder Hyperlipidemia Coronary arteriosclerosis Surgical History History of cardiac catheterization Stented coronary artery Family History Other Coronary artery disease Diabetes Heart attack Hyperlipidemia Hypertension No significant family history Stroke Social History Smoking Status: Smoker, status unknown tobacco type: cigarettes packs per day: 1 years smoked: 40 how long ago did patient quit smokin years ago second hand exposure: No alcohol intake: former counseling provided: provider counseling substance use type: denies use current occupational status: retired Travel in the last 8 weeks?: None household members: significant other housing: house number of children: 3 current occupational exposures/hazards: No caffeine: Yes Have you lived/traveled outside [place] in past 30 days?: No Contact w/someone who lives/traveled outside US past 30 days?: No Exposure to someone with infectious disease in past 14 days?: No Do you have a fever (greater than 100.4 F or 38 C)?: No Have you tested positive for COVID-19?: No Exposed to someone with COVID-19 in past 14 days?: No Do you have a sore throat?: No Do you have a cough?: No Do you have any weakness?: No Do you have any diarrhea?: No Are you experiencing any unusual bleeding?: No Do you have any muscle aches/pain?: No Do you have any abdominal pain?: No Are you experiencing loss of taste or smell?: No Review of Systems Constitutional Constitutional: Reports headache(s) (History of chronic headache) ENT Ears, Nose, Mouth, and Throat: Reports headache(s) (History of chronic headache) *Cardiovascular Cardiovascular: Reports chest pain *Musculoskeletal Musculoskeletal: Reports abnormal gait *Neurologic Neurologic: Reports as per HPI, Reports abnormal gait, Reports behavioral changes, Reports confusion, Reports headache(s) (History of chronic headache) and Reports memory loss Psychiatric Psychiatric: Reports behavioral changes, Reports confusion and Reports memory loss Exam Data for Last 24 hours Vital signs and Labs for Last 24 Hours: Temp Pulse Resp BP Pulse Ox O2 Del Method 98.0 F 70 18 129/63 99 Room Air 03/20/25 08:00 03/20/25 08:00 03/20/25 08:00 03/20/25 08:00 03/20/25 08:00 03/20/25 09:00 Laboratory Results - last 24 hr 03/19/25 16:54: WBC 9.6, RBC 4.35 L, Hgb 13.1 L, Hct 37.8 L, MCV 86.9, MCH 30.1, MCHC 34.7, RDW 13.0, Plt Count 312, MPV 9.3, Neut % (Auto) 56.7, Lymph % (Auto) 25.4, [place] % (Auto) 12.9 H, Eos % (Auto) 1.7, Baso % (Auto) 0.6, Neut # (Auto) 5.4, Lymph # (Auto) 2.4, [place] # (Auto) 1.2 H, Eos # (Auto) 0.2, Baso # (Auto) 0.1, D-Dimer 0.73 H, Sodium 124 L, Potassium 3.7, Chloride 87 L, Carbon Dioxide 26, Anion Gap 14.7, BUN 23 H, Creatinine 1.30 H, Estimated Creat Clear 65, Estimated GFR 55 L, Est GFR ( Amer) 66, Glucose 108 H, Calcium 9.8, Total Bilirubin 0.5, AST 31, ALT 18, Alkaline Phosphatase 43, Troponin I < 0.01, Total Protein 7.6, Albumin 4.6, Globulin 3.0, Albumin/Globulin Ratio 1.5 03/19/25 20:12: Troponin I < 0.01 03/19/25 23:25: Troponin I < 0.01 03/20/25 06:00: WBC 7.0 D, RBC 3.92 L, Hgb 11.6 L D, Hct 34.0 L, MCV 86.7, MCH 29.6, MCHC 34.1, RDW 13.1, Plt Count 261, MPV 9.6, Neut % (Auto) 57.3, Lymph % (Auto) 25.0, [place] % (Auto) 12.8 H, Eos % (Auto) 2.6, Baso % (Auto) 0.6, Neut # (Auto) 4.0, Lymph # (Auto) 1.8, [place] # (Auto) 0.9, Eos # (Auto) 0.2, Baso # (Auto) 0.0, Sodium 123 L, Potassium 3.5, Chloride 90 L, Carbon Dioxide 25, Anion Gap 11.5, BUN 18, Creatinine 1.00 D, Estimated Creat Clear 85, Estimated GFR 74, Est GFR ( Amer) 89 D, Glucose 86 D, Calcium 9.0, Magnesium 1.3 L, Total Bilirubin 0.3, AST 26, ALT 11 L D, Alkaline Phosphatase 37 L, Total Protein 6.1 L, Albumin 3.8 D, Globulin 2.3, Albumin/Globulin Ratio 1.7 I & O for Last 24 hours: Intake & Output 03/17/25 03/18/25 03/19/25 03/20/25 23:59 23:59 23:59 23:59 Intake Total 270 / 270 Output Total 0 / 0 Balance 270 / 270 Weight 192 lb 6.4 oz 193 lb 8 oz Constitutional Constitutional: no acute distress *Routine Respiratory Exam Respiratory: Present CTA bilaterally and symmetric chest movement *Routine Cardiovascular Exam Cardiovascular: Present RRR, Normal S1 and Normal S2 *Routine Abdominal Exam Abdominal: Present soft and normoactive bowel sounds; Absent tenderness *Routine Extremities Exam Extremities: Present full ROM and normal capillary refill; Absent edema *Routine Skin Exam Skin: Present intact, dry and warm Detailed Neck Exam: Thyroids Thyroid: Absent bruit Meds Home Medications and Allergies Home Medications ?Medication ?Instructions ?Recorded ?Confirmed ?Type aspirin 81 mg chewable tablet 81 mg PO DAILY 03/11/19 03/19/25 History divalproex 125 mg capsule,delayed 500 mg (4 x 125 mg) PO HS History 09/22/24 03/19/25 Rx release sprinkle of seizures, headache 90 days #360 caps ranolazine 1,000 mg 1,000 mg PO BID 90 days #180 tabs 09/22/24 03/19/25 Rx tablet,extended release,12 hr metformin 500 mg tablet 500 mg PO BID 90 days #180 tabs 10/17/24 03/19/25 Rx lacosamide 150 mg tablet 150 mg PO BID 90 days #180 tabs 10/31/24 03/19/25 Rx chlorthalidone 25 mg tablet 25 mg PO DAILY 90 days #90 tabs 11/14/24 03/19/25 Rx potassium chloride 10 mEq 10 meq PO DAILY 90 days #90 tabs 11/14/24 03/19/25 Rx tablet,extended release prochlorperazine maleate 10 mg 10 mg PO Q8H PRN nausea and 01/02/25 03/19/25 Rx tablet vomiting #90 tabs levocetirizine 5 mg tablet 5 mg PO DAILY #120 tabs 01/16/25 03/19/25 Rx atorvastatin 80 mg tablet 80 mg PO DAILY 90 days #90 tabs 01/17/25 03/19/25 Rx cholecalciferol (vitamin D3) 25 25 mcg PO DAILY 90 days #90 caps 01/25/25 03/19/25 Rx mcg (1,000 unit) capsule fluticasone propionate 50 1 spray intranasal BID #16 grams 02/02/25 03/19/25 Rx mcg/actuation nasal spray,suspension (Flonase Allergy Relief) hydrocodone 7.5 mg-acetaminophen 1 tab PO QID PRN pain #120 tabs 03/02/25 03/19/25 Rx 325 mg tablet azelastine 137 mcg (0.1 %) nasal 1 spray intranasal BID #30 mL 03/10/25 03/19/25 Rx spray metoprolol succinate 50 mg 50 mg PO DAILY 90 days #90 tabs 03/14/25 03/19/25 Rx tablet,extended release 24 hr clopidogrel 75 mg tablet 75 mg PO DAILY 03/19/25 03/19/25 History nitroglycerin 0.4 mg sublingual 0.4 mg sublingual NEEDED PRN 03/19/25 03/19/25 History tablet Chest Pain quetiapine 50 mg tablet 50 mg PO HS PRN Insomnia 03/19/25 03/19/25 History sildenafil 50 mg tablet (Viagra) 50 mg PO DIRECTED 03/20/25 03/20/25 History New Prescriptions to Start Prescriptions: Allergies Allergy/AdvReac Type Severity Reaction Status Date / Time isosorbide (From Imdur) AdvReac Mild Verified 03/10/25 08:20 Assessment and Plan *Assessment and plan (1) Acute hyponatremia: Status: Acute Category: Medical Code(s): E87.1 - Hypo-osmolality and hyponatremia (2) Chest pain: Status: Acute Qualifiers: Chest pain type: precordial pain Qualified Code(s): R07.2 - Precordial pain Category: Medical Code(s): R07.9 - Chest pain, unspecified Plan History of coronary artery disease History of stenting 2016 Stable angina Elevated D-dimer Serial troponins negative EKG without acute ischemic changes noted D-dimer was positive on admission. Suspicion for PE is low, however, cannot be ruled out at this time. Will obtain cta chest to r/o PE. Medical management heart cath noted June 2024, 2020 and 2018 Continue aspirin 81 mg p.o. daily atorvastatin 80 mg p.o. daily Continue Ranexa 1000 mg p.o. twice daily Continue metoprolol succinate 50 mg p.o. daily Add Imdur 30 mg p.o. daily Echo shows normal biventricular systolic function with no significant valvular stenosis or regurg Repeat outpatient ischemic evaluation to further evaluate ongoing chest pain Hyponatremia Stop chlorthalidone If diuretic is later needed can consider low-dose Lasix or Aldactone instead CV summary 03/20/2025: Echocardiogram shows normal biventricular systolic function with no significant valvular stenosis or regurg noted. Recommend stopping chlorthalidone in the setting of hyponatremia. Will add Imdur 30 mg p.o. daily to medication regiment for ongoing episodes of chest pain. Also recommend outpatient ischemic evaluation. Cardiac meds Aspirin 81 mg daily Atorvastatin 80 mg p.o. daily Ranexa 1000 mg p.o. twice daily Imdur 30 mg p.o. daily Metoprolol succinate 50 mg p.o. daily
--- NOTE | 2025-03-20 10:49 | SW/DCPLANNER ---
I spoke w/ this patient regarding plans once medically stable for discharge. PT evaluated patient and recommended home health services. Patient is agreeable to home health and does not have an agency preference. I will set up home health at time of discharge. Discharge date is unknown at this time. I will continue to follow up.
--- NOTE | 2025-03-20 10:52 | CA_ITS ---
APPROVED REPORT EXAM: Comprehensive 2D, Doppler, and color-flow Echocardiogram [employer] Analyst: Yolie Padilla RVT Ht: 5 ft 7 in Wt: 216lbs BSA: 2.09 BP: 129/63 mmHg Indications: CP,CAD,DM,HTN,HLD,DEMENTIA 2D Dimensions IVSd 0.78 cm M: 0.6-1.2 LVEF (Visual) 59.00 % PWd 1.19 cm M: 0.6 - 1.2 LA Volume 17.10 mL LVDd 4.94 cm M: 4.2 - 5.9 LA Volume Index 8.18 mL/m2 (M/F) 16-34 LVDs 3.39 cm M: 2.5 - 4.0 EF AP4 72.60 % GL Strain -28.1 % M-Mode Dimensions LA Diam 3.03 cm (1.9-4.0) TAPSE 2.11 (<1.7) LV Diastology E Decel Time 150 (160-240 msec) E/A Ratio 0.7 Aortic Valve AoV Peak Jag. 114.0 (50-130 cm/s) AO Peak GR. 5.20 mmHg AO Mean GR. 3.40 (<5 mmHg) AO VTI 22.1 (18-25 cm) KAMAR (VTI) 4.18 (2.5-4.5 cm2) Mitral Valve MV E Max Jag. 54.0 (40-130 cm/s) MV A Velocity 75.0 (40-130 cm/s) E/A Ratio 0.71 MV PHT 44.0 ms Pulmonary Valve PV Peak Velocity 60.0 (50-150 cm/s) Tricuspid Valve TR P. Velocity 248.00 cm/s RAP Estimate 10.00 mmHg RVSP 34.60 mmHg Left Ventricle The left ventricle is normal size. The left ventricular systolic function is normal. The left ventricular ejection fraction is within the normal range. There is normal left ventricular wall thickness. There is normal LV segmental wall motion. Transmitral Doppler flow pattern suggests impaired LV relaxation. LVEF is 60%. Right Ventricle The right ventricle is normal size. The right ventricular systolic function is normal. Atria The left atrium size is normal. The right atrium size is normal. There is no Doppler evidence of interatrial shunt. Aortic Valve The aortic valve is mildly thickened. There is no aortic valvular stenosis. No aortic regurgitation is present. Mitral Valve The mitral valve is normal in structure. No evidence of mitral valve stenosis. There is no mitral valve regurgitation noted. Tricuspid Valve Tricuspid valve is grossly normal in structure and function. Trace tricuspid regurgitation. There is insufficient TR jet to estimate RVSP. Pulmonic Valve The pulmonary valve is normal in structure. Trace pulmonic regurgitation. Great Vessels The aortic root is normal in size. IVC is normal in size and collapses >50% with inspiration. Pericardium There is no pericardial effusion. Other Information Study Quality: Fair Conclusion Normal biventricular systolic function. No significant valvular stenosis or regurgitation. Electronically signed by : Raquel Cuellar MD 03/20/2025 12:56:57
[2025-03-20] MEDS: METOPROLOL SUCCINATE XL 50MG TABLET 50 MG PO (11:36)
[2025-03-20] MEDS: ISOSORBIDE MONO 30MG TAB.ER.24H 30 MG PO (11:36)
[2025-03-20] MEDS: ASPIRIN EC 81MG TABLET 81 MG PO (11:36)
[2025-03-20] MEDS: RANOLAZINE 500MG ER TABLET 1000 MG PO ×2 (11:37→21:12)
[2025-03-20 12:00] VITALS: PULSE 80
[2025-03-20] MEDS: MAGNESIUM SULFATE IN WATER 2 GM/50 ML PIGGYBACK IV ×3 (12:20→14:12)
[2025-03-20] MEDS: POTASSIUM CHLORIDE 20MEQ TAB 40 MEQ PO ×2 (12:21→17:55)
--- NOTE | 2025-03-20 12:45 | P.PN_ITS ---
<Statement entered by Ivan Alonso MD - 03/20/25 19:48> Rounded on patient with nurse practitioner. Personally examined and interviewed patient. Agree with exam findings and care plan as documented. Subjective *Date: 03/20/25 *Time: 14:18 Medical Exam Vital signs and Labs for Last 24 Hours: Vital Signs Temp Pulse Pulse Resp BP BP Pulse Ox 03/20/25 09:00 03/20/25 08:00 98.0 F 70 18 129/63 99 03/20/25 08:00 66 03/20/25 08:00 03/20/25 06:32 03/20/25 05:00 03/20/25 04:00 98.4 F 63 17 144/78 H 98 03/20/25 04:00 70 03/20/25 03:00 03/20/25 01:00 03/20/25 00:00 70 03/19/25 23:00 03/19/25 21:00 03/19/25 21:00 70 03/19/25 20:25 97.9 F 69 15 136/80 03/19/25 20:00 98.3 F 72 16 136/80 98 03/19/25 19:58 03/19/25 19:31 72 17 133/79 100 03/19/25 19:01 72 14 137/78 98 03/19/25 18:30 63 15 123/71 98 03/19/25 18:00 70 13 132/71 98 03/19/25 17:30 70 15 125/69 98 03/19/25 17:14 97.8 F 68 14 127/78 98 03/19/25 17:03 66 127/78 98 O2 Del Method 03/20/25 09:00 Room Air 03/20/25 08:00 Room Air 03/20/25 08:00 03/20/25 08:00 Room Air 03/20/25 06:32 Room Air 03/20/25 05:00 Room Air 03/20/25 04:00 Room Air 03/20/25 04:00 03/20/25 03:00 Room Air 03/20/25 01:00 Room Air 03/20/25 00:00 03/19/25 23:00 Room Air 03/19/25 21:00 Room Air 03/19/25 21:00 03/19/25 20:25 Room Air 03/19/25 20:00 Room Air 03/19/25 19:58 Room Air 03/19/25 19:31 03/19/25 19:01 03/19/25 18:30 03/19/25 18:00 Room Air 03/19/25 17:30 03/19/25 17:14 Room Air 03/19/25 17:03 Intake and Output 03/19/25 03/20/25 03/20/25 23:59 07:59 15:59 Intake Total 150 / 270 120 / 270 Output Total 0 / 0 Balance 150 / 270 120 / 270 Intake: Intake, Oral Amount 150 / 270 120 / 270 Output: Output, Urine Amount 0 / 0 Other: Number of Unmeasured Voids 1 Weight 87.271 kg 87.77 kg Patient Weight 03/20/25 23:59 Weight 87.77 kg Laboratory Results - last 24 hr 03/19/25 16:54: WBC 9.6, RBC 4.35 L, Hgb 13.1 L, Hct 37.8 L, MCV 86.9, MCH 30.1, MCHC 34.7, RDW 13.0, Plt Count 312, MPV 9.3, Neut % (Auto) 56.7, Lymph % (Auto) 25.4, [place] % (Auto) 12.9 H, Eos % (Auto) 1.7, Baso % (Auto) 0.6, Neut # (Auto) 5.4, Lymph # (Auto) 2.4, Will # (Auto) 1.2 H, Eos # (Auto) 0.2, Baso # (Auto) 0.1, D-Dimer 0.73 H, Sodium 124 L, Potassium 3.7, Chloride 87 L, Carbon Dioxide 26, Anion Gap 14.7, BUN 23 H, Creatinine 1.30 H, Estimated Creat Clear 65, Estimated GFR 55 L, Est GFR ( Amer) 66, Glucose 108 H, Calcium 9.8, Total Bilirubin 0.5, AST 31, ALT 18, Alkaline Phosphatase 43, Troponin I < 0.01, Total Protein 7.6, Albumin 4.6, Globulin 3.0, Albumin/Globulin Ratio 1.5 03/19/25 20:12: Troponin I < 0.01 03/19/25 23:25: Troponin I < 0.01 03/20/25 06:00: WBC 7.0 D, RBC 3.92 L, Hgb 11.6 L D, Hct 34.0 L, MCV 86.7, MCH 29.6, MCHC 34.1, RDW 13.1, Plt Count 261, MPV 9.6, Neut % (Auto) 57.3, Lymph % (Auto) 25.0, Will % (Auto) 12.8 H, Eos % (Auto) 2.6, Baso % (Auto) 0.6, Neut # (Auto) 4.0, Lymph # (Auto) 1.8, Will # (Auto) 0.9, Eos # (Auto) 0.2, Baso # (Auto) 0.0, Sodium 123 L, Potassium 3.5, Chloride 90 L, Carbon Dioxide 25, Anion Gap 11.5, BUN 18, Creatinine 1.00 D, Estimated Creat Clear 85, Estimated GFR 74, Est GFR ( Amer) 89 D, Glucose 86 D, Calcium 9.0, Magnesium 1.3 L, Total Bilirubin 0.3, AST 26, ALT 11 L D, Alkaline Phosphatase 37 L, Total Protein 6.1 L, Albumin 3.8 D, Globulin 2.3, Albumin/Globulin Ratio 1.7 03/20/25 11:06: Urine Sodium 142.0 H I & O for Labs for Last 24 Hours: Intake & Output 03/17/25 03/18/25 03/19/25 03/20/25 23:59 23:59 23:59 23:59 Intake Total 270 / 270 Output Total 0 / 0 Balance 270 / 270 Weight 87.271 kg 87.77 kg Constitutional: Present no acute distress Neck: Present normal inspection Respiratory: Present CTA bilaterally, normal respiratory effort and able to speak in complete sentences Cardiac: Present Reg Rate and Rhythm GI: Present soft and hyperactive bowel sounds Rectal (male): Present deferred (male): Present deferred Extremities: Present normal inspection Skin: Present intact, dry and normal turgor Neuro: Present Weakness, alert, awake, oriented x 3 and moves all extremities Assessment and Plan *Assessment and plan (1) Acute hyponatremia: Status: Acute Category: Medical Code(s): E87.1 - Hypo-osmolality and hyponatremia (2) Chest pain: Status: Acute Qualifiers: Chest pain type: precordial pain Qualified Code(s): R07.2 - Precordial pain Category: Medical Code(s): R07.9 - Chest pain, unspecified (3) Decreased GFR: Status: Acute Category: Medical Code(s): R94.4 - Abnormal results of kidney function studies (4) Headache: Status: Acute Qualifiers: Headache chronicity pattern: episodic headache Headache type: unspecified Intractability: not intractable Qualified Code(s): R51.9 - Headache, unspecified Category: Medical Code(s): R51.9 - Headache, unspecified (5) Dementia: Status: Chronic Qualifiers: Alzheimer's disease onset: late onset Dementia behavioral or psychological symptom: with mood disturbance Dementia severity: moderate Dementia type: Alzheimer's Qualified Code(s): G30.1 - Alzheimer's disease with late onset; F02.B3 - Dementia in other diseases classified elsewhere, moderate, with mood disturbance Category: Medical Code(s): F03.90 - Unspecified dementia, unspecified severity, without behavioral disturbance, psychotic disturbance, mood disturbance, and anxiety (6) History of seizure: Status: Resolved Category: Medical Code(s): Z87.898 - Personal history of other specified conditions (7) Diabetes: Status: Acute Qualifiers: Diabetes mellitus complication status: with other specified complication Diabetes mellitus prison insulin use: without prison use Diabetes mellitus type: type 2 Qualified Code(s): E11.69 - Type 2 diabetes mellitus with other specified complication Category: Medical Code(s): E11.9 - Type 2 diabetes mellitus without complications (8) Low back pain: Status: Acute Qualifiers: Back pain laterality: unspecified Chronicity: unspecified Sciatica laterality: sciatica laterality unspecified Sciatica presence: with sciatica Qualified Code(s): M54.40 - Lumbago with sciatica, unspecified side Category: Medical Code(s): M54.50 - Low back pain, unspecified (9) Coronary arteriosclerosis: Status: Chronic Category: Medical Code(s): I25.10 - Atherosclerotic heart disease of [place]o coronary artery without angina pectoris (10) Dizziness: Status: Acute Category: Medical Code(s): R42 - Dizziness and giddiness (11) Abnormal finding on MRI of brain: Problem Comment: History, findings on brain MRI in January 2022, work-up results and clinical course consistent with acute encephalopathy in the setting of symptomatic hypertension over imposed on chronic multifactorial dementia. 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 Atypical, focal enhancement including meningeal enhancement can be seen with PRESS. Extensive work-up failed to demonstrate another etiology He also has history of left-sided numbness, weakness in 2014 and was admitted to [facility]?neurology. 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 Cannot exclude acute sinus thrombosis with partial revascularization. Status: Chronic Category: Medical Code(s): R90.89 - Other abnormal findings on diagnostic imaging of central nervous system Plan Pt. admitted over night for assessment of hyponatremia and weakness. Cardiology consulted. Acute Hyponatremia: Urine sodium results of 142 this morning to evaluate for SIADH. Patient sodium this morning 123, potassium 3.5, chloride 90. Kidney function normal BUN 18, creatinine 1. Magnesium low at 1.3. Replacing per protocol. Monitor sodium with a correction rate of 8 to 10 mEq/day. Repeat BMP ordered every 8 hours. CBC, CMP, magnesium ordered for the morning. Fluid restriction to 1500 mL/day. Chest Pain: D-dimer positive on admission, serial troponins negative. Heart cath 2023 recommended medical management. Echo performed today normal per cardiology. Resume home medications: Aspirin 81 mg daily, atorvastatin 80 mg daily, metoprolol 50 mg daily, and ranolazine 1000 mg twice a day. Add Imdur 30 mg per cards. History of Seizures: Seizure precautions in place. Home medication resumed. Including divalproex acid 500 mg twice a day, lacosamide 150 mg twice a day. Patient does follow with outpatient neurology. Dementia: Hold Seroquel 50 mg at night to evaluate for confusion/ sundowners related to dementia versus SIADH.
--- NOTE | 2025-03-20 12:48 | CT_ITS ---
FINAL REPORT TECHNIQUE: Postcontrast axial images of the chest were performed in a CTA protocol. This study was performed with techniques to keep radiation doses as low as reasonably achievable, (ALARA). Individualized dose reduction technique using automated exposure control or adjustment of mA and/or kV according to the patient's size were employed. CLINICAL HISTORY: elevated d dimer COMPARISON: 03/02/2025 FINDINGS: The heart is normal in size. No adenopathy is identified. No pleural or pericardial effusion is identified. The thoracic aorta is normal in caliber with no focal aneurysm or dissection identified. There is no filling defect to suggest pulmonary embolism. Again seen is a 2-3 mm posterior right lower lobe nodule seen on series 3, image 22. This is unchanged from prior exam performed 03/02/2025. Lungs are otherwise clear. The images of the upper abdomen demonstrate a stable left adrenal nodule consistent with adenoma. IMPRESSION: No evidence for PE on this exam. Reviewed, Interpreted and Dictated by Gwendolyn Bryant MD Transcribed by Summer Boston Authenticated and [facility]
[2025-03-20] MEDS: SODIUM CHLORIDE 0.9% 10ML SYR (RAD ONLY) 10 ML IV (13:39)
[2025-03-20] MEDS: 0.9 % SODIUM CHLORIDE 50 ML VIAL IV (13:39)
[2025-03-20] MEDS: IOPAMIDOL-370 (76%);100ML BOTTLE 75 ML IV (13:40)
[2025-03-20 16:00] VITALS: BP 134/76; PULSE 77; RESP 16; TEMP 36.7; O2SAT 98
[2025-03-20 17:32] LABS: Anion Gap 14.6 mEq/L (5-15); Blood Urea Nitrogen 17 mg/dl (9-20); Calcium 9.4 mg/dl (8.4-10.2); Carbon Dioxide 26 mmol/L (22.0-30.0); Chloride 87 mmol/L (98-107); Creatinine Clearance Estimated 85 mL/min (50-200); Estimated Glomerular Filt Rate 74 ml/min (>60); GFR (African American) 89 ML/MIN (>60); Glucose 130 mg/dl (74-100); Potassium 3.6 mmoL/L (3.5-5.1); Sodium 124 mmol/L (136-145)
--- NOTE | 2025-03-20 18:12 | PC.NURSE ---
AOX4, HAS NOT REQUIRED O2 SUPPORT. HAS RESTED IN BED FOR MOST OF SHIFT. ELECTROLYTES REPLACED TODAY.
[2025-03-20 20:00] VITALS: BP 124/67; PULSE 72; RESP 16; TEMP 36.7; O2SAT 96
[2025-03-20] MEDS: METFORMIN 500MG TABLET 500 MG PO (21:12)
[2025-03-20] MEDS: DIVALPROEX SOD SPRINKLE 125MG CAPSULE 500 MG PO (21:12)
[2025-03-20] MEDS: ATORVASTATIN 40MG TABLET 80 MG PO (21:12)
[2025-03-21 04:00] VITALS: BP 139/78; PULSE 67; RESP 16; TEMP 36.8; O2SAT 98; BMI 28.7
[2025-03-21 06:36] LABS: Basophils # 0.1 K/mm3 (0-0.2); Basophils % 0.7 % (0.1-2.0); Eosinophils # 0.2 Kmm3 (0.0-0.4); Hematocrit 34.4 % (42.0-52.0); Hemoglobin 11.7 g/dL (14.1-18.0); Immature Granulocytes # 0.11 10^3uL; Immature Granulocytes % 1.4 %; Lymphocytes # 1.9 K/mm3 (0.7-4.5); Lymphocytes % 25.3 % (10-50); Mean Corpuscular Hemoglobin 29.8 pg (27.0-31.2); Mean Corpuscular Volume 87.8 fl (80-94); Mean Platelet Volume 9.9 fl (7.4-10.4); Monocytes % 12.8 % (1.7-9.3); Neutrophils # 4.4 K/mm3 (1.8-7.8); Neutrophils % 57.8 % (37.0-80.0); Nucleated Red Blood Cells # 0 10^3/uL; Nucleated Red Blood Cells % 0 %; Platelet Count 117 K/mm3 (142-424); Red Blood Count 3.92 M/mm3 (4.60-6.20); Red Cell Distribution Width 13.3 % (11.5-17.5); Red Cell Distribution Width-SD 42.1 fL; White Blood Count 7.6 K/mm3 (4.8-10.8)
[2025-03-21 07:07] LABS: Chloride 94 mmol/L (98-107)
[2025-03-21 07:08] LABS: Albumin Level 3.9 g/dl (3.5-5.0); Potassium 4.7 mmoL/L (3.5-5.1); Sodium 122 mmol/L (136-145)
[2025-03-21 07:10] LABS: Blood Urea Nitrogen 18 mg/dl (9-20); Creatinine Clearance Estimated 83 mL/min (50-200); Estimated Glomerular Filt Rate 83 ml/min (>60); GFR (African American) 101 ML/MIN (>60)
[2025-03-21 07:11] LABS: Alanine Aminotransferase 11 U/L (12-78); Albumin/Globulin Ratio 1.6 (1.1-1.8); Alkaline Phosphatase 31 U/L (38-126); Anion Gap 11.7 mEq/L (5-15); Aspartate Amino Transferase 33 U/L (17-59); Bilirubin,Total 0.5 mg/dl (0.2-1.3); Calcium 8.5 mg/dl (8.4-10.2); Carbon Dioxide 21 mmol/L (22.0-30.0); Globulin 2.5 g/dL (1.3-3.2); Glucose 94 mg/dl (74-100); Magnesium 1.9 mg/dl (1.6-2.3); Total Protein,Serum 6.4 g/dl (6.3-8.2)
[2025-03-21 08:00] VITALS: BP 144/70; PULSE 73; RESP 16; TEMP 36.6; O2SAT 98
[2025-03-21] MEDS: CLOPIDOGREL 75MG TAB 75 MG PO (08:06)
[2025-03-21] MEDS: ASPIRIN EC 81MG TABLET 81 MG PO (08:06)
[2025-03-21] MEDS: METFORMIN 500MG TABLET 500 MG PO ×2 (08:07→20:49)
[2025-03-21] MEDS: ISOSORBIDE MONO 30MG TAB.ER.24H 30 MG PO (08:07)
[2025-03-21] MEDS: METOPROLOL SUCCINATE XL 50MG TABLET 50 MG PO (08:07)
[2025-03-21] MEDS: RANOLAZINE 500MG ER TABLET 1000 MG PO ×2 (08:08→20:49)
[2025-03-21] MEDS: ACETAMINOPHEN 325MG TAB 650 MG PO ×2 (09:47→16:38)
[2025-03-21] MEDS: SODIUM CHLORIDE 1,000MG TABLET 1000 MG PO ×3 (10:28→20:49)
[2025-03-21] MEDS: APAP/HYDROCODONE 325MG/7.5MG TAB 1 TAB PO (12:27)
--- NOTE | 2025-03-21 13:21 | SW/DCPLANNER ---
Spoke with patient about once he is medically stable and ready for discharge if he would be interested in home health services. Patient stated that he would and he has no preference of what agency. I sent the patient's information to [facility] and they are able to accept. Dieter Hernandez
--- NOTE | 2025-03-21 13:47 | P.PN_ITS ---
<Statement entered by Kaveh Johnson MD - 03/27/25 17:48> Personally evaluated the patient and agree with the plan of care as outlined by the [employer]AMINER. Subjective *Date: 03/21/25 *Time: 16:00 Interval history: Pt. resting comfortably in the bed this morning.? Discussed with the patient fluid intake at home.? Patient states he is drinking 500 mL bottles of water 5-6 times a day in addition to Mountain Dew.? This information gives high suspicion for polydipsia induced hyponatremia. Medical Exam Vital signs and Labs for Last 24 Hours: Vital Signs Temp Pulse Resp BP Pulse Ox O2 Del Method 03/21/25 11:00 Room Air 03/21/25 09:00 Room Air 03/21/25 08:00 Room Air 03/21/25 08:00 97.9 F 73 16 144/70 H 98 Room Air 03/21/25 07:00 Room Air 03/21/25 05:00 Room Air 03/21/25 04:00 98.3 F 67 16 139/78 98 Room Air 03/21/25 03:00 Room Air 03/21/25 01:00 Room Air 03/20/25 23:00 Room Air 03/20/25 21:00 Room Air 03/20/25 20:00 Room Air 03/20/25 20:00 98.0 F 72 16 124/67 96 Room Air 03/20/25 18:11 Room Air 03/20/25 17:00 Room Air 03/20/25 16:00 98.0 F 77 16 134/76 98 Room Air 03/20/25 15:00 Room Air Intake and Output 03/20/25 03/21/25 03/21/25 23:59 07:59 15:59 Intake Total 600 / 1110 Output Total 0 / 0 0 / 0 Balance 600 / 860 0 / 0 0 / 0 Intake: Intake, Oral Amount 600 / 1110 Output: Output, Urine Amount 0 / 0 0 / 0 Other: Number of Unmeasured Voids 1 1 Weight 85.865 kg Patient Weight 03/21/25 23:59 Weight 85.865 kg Laboratory Results - last 24 hr 03/20/25 17:14: Sodium 124 L, Potassium 3.6, Chloride 87 L, Carbon Dioxide 26, Anion Gap 14.6, BUN 17, Creatinine 1.00, Estimated Creat Clear 85, Estimated GFR 74, Est GFR ( Amer) 89, Glucose 130 H D, Calcium 9.4 03/21/25 05:57: WBC 7.6, RBC 3.92 L, Hgb 11.7 L, Hct 34.4 L, MCV 87.8, MCH 29.8, MCHC 34.0, RDW 13.3, Plt Count 117 L D, MPV 9.9, Neut % (Auto) 57.8, Lymph % (Auto) 25.3, [place] % (Auto) 12.8 H, Eos % (Auto) 2.0, Baso % (Auto) 0.7, Neut # (Auto) 4.4, Lymph # (Auto) 1.9, [place] # (Auto) 1.0, Eos # (Auto) 0.2, Baso # (Auto) 0.1, Sodium 122 L, Potassium 4.7 D, Chloride 94 L, Carbon Dioxide 21 L, Anion Gap 11.7, BUN 18, Creatinine 0.90, Estimated Creat Clear 83, Estimated GFR 83, Est GFR ( Amer) 101, Glucose 94 D, Calcium 8.5, Magnesium 1.9 D, Total Bilirubin 0.5, AST 33 D, ALT 11 L, Alkaline Phosphatase 31 L, Total Protein 6.4, Albumin 3.9, Globulin 2.5, Albumin/Globulin Ratio 1.6 I & O for Labs for Last 24 Hours: Intake & Output 03/18/25 03/19/25 03/20/25 03/21/25 23:59 23:59 23:59 23:59 Intake Total 1110 / 1110 Output Total 250 / 250 0 / 0 Balance 860 / 860 0 / 0 Weight 87.271 kg 87.77 kg 85.865 kg Constitutional: Present no acute distress Head: Present normocephalic Neck: Present normal inspection Respiratory: Present CTA bilaterally, normal respiratory effort and able to speak in complete sentences Comment:: Dry cough Cardiac: Present Reg Rate and Rhythm GI: Present soft and normal bowel sounds Rectal (male): Present deferred (male): Present deferred Extremities: Present normal inspection Skin: Present intact, dry and normal turgor Neuro: Present Weakness, alert, awake, oriented x 3 and moves all extremities Assessment and Plan *Assessment and plan (1) Acute hyponatremia: Status: Acute Category: Medical Code(s): E87.1 - Hypo-osmolality and hyponatremia (2) Chest pain: Status: Acute Qualifiers: Chest pain type: precordial pain Qualified Code(s): R07.2 - Precordial pain Category: Medical Code(s): R07.9 - Chest pain, unspecified (3) Decreased GFR: Status: Acute Category: Medical Code(s): R94.4 - Abnormal results of kidney function studies (4) Headache: Status: Acute Qualifiers: Headache chronicity pattern: episodic headache Headache type: unspecified Intractability: not intractable Qualified Code(s): R51.9 - Headache, unspecified Category: Medical Code(s): R51.9 - Headache, unspecified (5) Dementia: Status: Chronic Qualifiers: Alzheimer's disease onset: late onset Dementia behavioral or psychological symptom: with mood disturbance Dementia severity: moderate Dementia type: Alzheimer's Qualified Code(s): G30.1 - Alzheimer's disease with late onset; F02.B3 - Dementia in other diseases classified elsewhere, moderate, with mood disturbance Category: Medical Code(s): F03.90 - Unspecified dementia, unspecified severity, without behavioral disturbance, psychotic disturbance, mood disturbance, and anxiety (6) History of seizure: Status: Resolved Category: Medical Code(s): Z87.898 - Personal history of other specified conditions (7) Diabetes: Status: Acute Qualifiers: Diabetes mellitus complication status: with other specified complication Diabetes mellitus intermediate insulin use: without intermediate use Diabetes mellitus type: type 2 Qualified Code(s): E11.69 - Type 2 diabetes mellitus with other specified complication Category: Medical Code(s): E11.9 - Type 2 diabetes mellitus without complications (8) Low back pain: Status: Acute Qualifiers: Back pain laterality: unspecified Chronicity: unspecified Sciatica laterality: sciatica laterality unspecified Sciatica presence: with sciatica Qualified Code(s): M54.40 - Lumbago with sciatica, unspecified side Category: Medical Code(s): M54.50 - Low back pain, unspecified (9) Coronary arteriosclerosis: Status: Chronic Category: Medical Code(s): I25.10 - Atherosclerotic heart disease of [place] coronary artery without angina pectoris (10) Dizziness: Status: Acute Category: Medical Code(s): R42 - Dizziness and giddiness (11) Abnormal finding on MRI of brain: Problem Comment: History, findings on brain MRI in January 2022, work-up results and clinical course consistent with acute encephalopathy in the setting of symptomatic hypertension over imposed on chronic multifactorial dementia. 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 Atypical, focal enhancement including meningeal enhancement can be seen with PRESS. Extensive work-up failed to demonstrate another etiology He also has history of left-sided numbness, weakness in 2014 and was admitted to [facility]?neurology. 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 Cannot exclude acute sinus thrombosis with partial revascularization. Status: Chronic Category: Medical Code(s): R90.89 - Other abnormal findings on diagnostic imaging of central nervous system Plan #Acute Hyponatremia: - Sodium today was 122, potassium 4.7. - Continued fluid restriction to 1500 mL a day. - Initiated sodium tablets 1000 mg 3 times a day. - Discussed with patient in detail the importance of fluid restriction. - Continue to check BMP every 8 hours. - Magnesium back within normal range at 1.9 today after replacement. ?Urine osmolarity, TSH, cortisol, and lipid panel ordered to further investigate hyponatremia. #Chest Pain: -Continued home medications: Aspirin 81 mg daily, atorvastatin 80 mg daily, metoprolol 50 mg daily, and ranolazine 1000 mg twice a day. Add Imdur 30 mg per cards. -Continuing to hold chlorthalidone. Patient tolerating Imdur 30 without issues. Vital signs stable blood pressure 144/70, pulse 73. #History of Seizures: - Seizure precautions in place. - No seizure-like activity noted. - Home medication continued. divalproex acid 500 mg twice a day, lacosamide 150 mg twice a day. Patient does follow with outpatient neurology. #Dementia: Continuing to hold Seroquel 50 mg at night to evaluate for confusion/ sundowners related to dementia versus SIADH.
--- NOTE | 2025-03-21 14:06 | EXP.CARD.PN ---
Subjective Subjective Date: 03/21/25 Time: 08:30 Principal diagnosis: Chest pain and headache with hyponatremia Interval history: Patient reports he continues to feel better. He denies any chest pain or shortness of breath with the addition of Imdur. He reports he still has a mild headache but better than it was when he came in. Morning labs reviewed and sodium remains low at 122. Exam Data for Last 24 hours Vital signs and Labs for Last 24 Hours: Temp Pulse Resp BP Pulse Ox O2 Del Method 97.9 F 73 16 144/70 H 98 Room Air 03/21/25 08:00 03/21/25 08:00 03/21/25 08:00 03/21/25 08:00 03/21/25 08:00 03/21/25 13:00 Laboratory Results - last 24 hr 03/20/25 17:14: Sodium 124 L, Potassium 3.6, Chloride 87 L, Carbon Dioxide 26, Anion Gap 14.6, BUN 17, Creatinine 1.00, Estimated Creat Clear 85, Estimated GFR 74, Est GFR ( Amer) 89, Glucose 130 H D, Calcium 9.4 03/21/25 05:57: WBC 7.6, RBC 3.92 L, Hgb 11.7 L, Hct 34.4 L, MCV 87.8, MCH 29.8, MCHC 34.0, RDW 13.3, Plt Count 117 L D, MPV 9.9, Neut % (Auto) 57.8, Lymph % (Auto) 25.3, [place] % (Auto) 12.8 H, Eos % (Auto) 2.0, Baso % (Auto) 0.7, Neut # (Auto) 4.4, Lymph # (Auto) 1.9, [place] # (Auto) 1.0, Eos # (Auto) 0.2, Baso # (Auto) 0.1, Sodium 122 L, Potassium 4.7 D, Chloride 94 L, Carbon Dioxide 21 L, Anion Gap 11.7, BUN 18, Creatinine 0.90, Estimated Creat Clear 83, Estimated GFR 83, Est GFR ( Amer) 101, Glucose 94 D, Calcium 8.5, Magnesium 1.9 D, Total Bilirubin 0.5, AST 33 D, ALT 11 L, Alkaline Phosphatase 31 L, Total Protein 6.4, Albumin 3.9, Globulin 2.5, Albumin/Globulin Ratio 1.6 I & O for Last 24 hours: Intake & Output 03/18/25 03/19/25 03/20/25 03/21/25 23:59 23:59 23:59 23:59 Intake Total 1110 / 1110 Output Total 250 / 250 0 / 0 Balance 860 / 860 0 / 0 Weight 192 lb 6.4 oz 193 lb 8 oz 189 lb 4.8 oz Constitutional Constitutional: no acute distress *Routine Respiratory Exam Respiratory: Present CTA bilaterally and symmetric chest movement *Routine Cardiovascular Exam Cardiovascular: Present RRR, Normal S1 and Normal S2 *Routine Abdominal Exam Abdominal: Present soft and normoactive bowel sounds; Absent tenderness *Routine Extremities Exam Extremities: Present full ROM and normal capillary refill; Absent edema *Routine Skin Exam Skin: Present intact, dry and warm Detailed Neck Exam: Thyroids Thyroid: Absent bruit Progress Note: A&P Assessment and plan (1) Acute hyponatremia: Status: Acute (2) Chest pain: Status: Acute (3) Decreased GFR: Status: Acute (4) Headache: Status: Acute (5) Dementia: Status: Chronic (6) History of seizure: Status: Resolved (7) Diabetes: Status: Acute (8) Low back pain: Status: Acute (9) Coronary arteriosclerosis: Status: Chronic (10) Dizziness: Status: Acute (11) Abnormal finding on MRI of brain: Problem details: History, findings on brain MRI in January 2022, work-up results and clinical course consistent with acute encephalopathy in the setting of symptomatic hypertension over imposed on chronic multifactorial dementia. 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 Atypical, focal enhancement including meningeal enhancement can be seen with PRESS. Extensive work-up failed to demonstrate another etiology He also has history of left-sided numbness, weakness in 2015 and was admitted to [facility]?neurology. 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 Cannot exclude acute sinus thrombosis with partial revascularization. Status: Chronic Assessment and Plan Assessment and Plan for All Diagnoses:: History of coronary artery disease History of stenting 2015 Stable angina Elevated D-dimer Serial troponins negative EKG without acute ischemic changes noted CTA negative for PE Medical management heart cath noted June 2024, 2020 and 2018 Continue aspirin 81 mg p.o. daily atorvastatin 80 mg p.o. daily Continue Ranexa 1000 mg p.o. twice daily Continue metoprolol succinate 50 mg p.o. daily Continue Imdur 30 mg p.o. daily Echo shows normal biventricular systolic function with no significant valvular stenosis or regurg Repeat outpatient ischemic evaluation to further evaluate ongoing chest pain Hyponatremia Continue to hold chlorthalidone Continue fluid restrictions of to 1500 mL a day Primary service is initiating sodium tablets 1000 mg 3 times daily TSH and cortisol pending CV summary 03/21/2025: Continue to monitor sodium and hold chlorthalidone. Cardiac meds Aspirin 81 mg daily Atorvastatin 80 mg p.o. daily Ranexa 1000 mg p.o. twice daily Imdur 30 mg p.o. daily Metoprolol succinate 50 mg p.o. daily
[2025-03-21 14:32] LABS: NT Pro Brain Natriuretic Pep. 121 pg/mL (0-125)
[2025-03-21 15:53] LABS: Chol/HDL Ratio 2.4 (1-3.5); Cholesterol 158 mg/dl (140-200); HDL Cholesterol 66 mg/dl (40-60); Triglycerides 171 mg/dl (30-150); VLDL Cholesterol 34 mg/dL (0-40)
[2025-03-21 16:00] VITALS: BP 130/77; PULSE 71; RESP 18; TEMP 36.7; O2SAT 97
[2025-03-21 16:03] LABS: Direct LDL Cholesterol 47.87 mg/dL (100-129)
[2025-03-21 16:25] LABS: Thyroid Stimulating Hormone 2.12 uIU/mL (0.465-4.68)
[2025-03-21 17:51] LABS: Anion Gap 13.5 mEq/L (5-15); Blood Urea Nitrogen 19 mg/dl (9-20); Calcium 8.9 mg/dl (8.4-10.2); Carbon Dioxide 23 mmol/L (22.0-30.0); Chloride 93 mmol/L (98-107); Creatinine Clearance Estimated 83 mL/min (50-200); Estimated Glomerular Filt Rate 83 ml/min (>60); GFR (African American) 101 ML/MIN (>60); Glucose 97 mg/dl (74-100); Potassium 4.5 mmoL/L (3.5-5.1); Sodium 125 mmol/L (136-145)
[2025-03-21 20:00] VITALS: BP 149/82; PULSE 77; RESP 18; TEMP 36.6; O2SAT 97
[2025-03-21] MEDS: DIVALPROEX SOD SPRINKLE 125MG CAPSULE 500 MG PO (20:48)
[2025-03-21] MEDS: ATORVASTATIN 40MG TABLET 80 MG PO (20:49)
[2025-03-21 23:10] LABS: Anion Gap 11.3 mEq/L (5-15); Blood Urea Nitrogen 18 mg/dl (9-20); Carbon Dioxide 26 mmol/L (22.0-30.0); Chloride 94 mmol/L (98-107); Creatinine Clearance Estimated 83 mL/min (50-200); Estimated Glomerular Filt Rate 96 ml/min (>60); GFR (African American) 116 ML/MIN (>60); Glucose 85 mg/dl (74-100); Potassium 4.3 mmoL/L (3.5-5.1); Sodium 127 mmol/L (136-145)
--- NOTE | 2025-03-22 03:48 | PC.NURSE ---
Pt A&OX4 and has tolerated room air. Lung sounds clear and bowel sounds active. He has rested well in bed. He has ambulated room with standby assist. No complaints at this time, call light within reach.
[2025-03-22 04:00] VITALS: BP 158/80; PULSE 75; RESP 16; TEMP 37; O2SAT 94; BMI 28.5
[2025-03-22 06:50] LABS: Albumin Level 3.8 g/dl (3.5-5.0); Chloride 95 mmol/L (98-107); Potassium 4.1 mmoL/L (3.5-5.1); Sodium 127 mmol/L (136-145)
[2025-03-22 06:52] LABS: Blood Urea Nitrogen 16 mg/dl (9-20)
[2025-03-22 06:53] LABS: Alanine Aminotransferase 11 U/L (12-78); Albumin/Globulin Ratio 1.6 (1.1-1.8); Alkaline Phosphatase 40 U/L (38-126); Anion Gap 11.1 mEq/L (5-15); Aspartate Amino Transferase 26 U/L (17-59); Bilirubin,Total 0.2 mg/dl (0.2-1.3); Calcium 8.9 mg/dl (8.4-10.2); Carbon Dioxide 25 mmol/L (22.0-30.0); Creatinine Clearance Estimated 83 mL/min (50-200); Estimated Glomerular Filt Rate 96 ml/min (>60); GFR (African American) 116 ML/MIN (>60); Globulin 2.4 g/dL (1.3-3.2); Glucose 90 mg/dl (74-100); Total Protein,Serum 6.2 g/dl (6.3-8.2)
[2025-03-22 08:00] VITALS: BP 132/59; PULSE 71; RESP 14; TEMP 36.8; O2SAT 96
[2025-03-22] MEDS: METOPROLOL SUCCINATE XL 50MG TABLET 50 MG PO (08:33)
[2025-03-22] MEDS: ASPIRIN EC 81MG TABLET 81 MG PO (08:33)
[2025-03-22] MEDS: SODIUM CHLORIDE 1,000MG TABLET 1000 MG PO (08:33)
[2025-03-22] MEDS: CLOPIDOGREL 75MG TAB 75 MG PO (08:33)
[2025-03-22] MEDS: RANOLAZINE 500MG ER TABLET 1000 MG PO (08:33)
[2025-03-22] MEDS: METFORMIN 500MG TABLET 500 MG PO (08:34)
[2025-03-22] MEDS: ISOSORBIDE MONO 30MG TAB.ER.24H 30 MG PO (08:35)
--- NOTE | 2025-03-22 11:21 | P.DS_ITS ---
<Statement entered by Kaveh Johnson MD - 03/27/25 17:47> Personally evaluated the patient and agree with the plan of care as outlined by the CONTACT LENS LATHE OPERATOR. 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 The significant other noted that he has a history of chronic chest pain and also chronic headaches. Patient has a past history of alcohol and substance abuse, also history of cardiac vascular disease with several stents. Noting a chronic renal insufficiency started since around 07/07/2024. HIs creatinine kicked up with BUN from 16/0.9 to 23/1.30 and now higher. This co rrelates with a admission related to chest pain and cardiac catheterization. Also noting about that time that Lasix was stopped. Noting that the patient's weights been kind of variable as high as 226 presently at 191. Approximately May 2024 was at 217 pounds. No signs of congestive heart failure at this time and patient is not complaining of chest pain during my exam Mentation evaluation: Patient's significant other (they have been together for 50 years, lived together for last 10 yrs.) tells me that his sundowning is getting worse. Review of chart shows this problem has been addressed for the last 7 months. There has been an increase in Seroquel due to behavior and sundowning. Patient also noted with chronic headaches. Has been on several antiseizure medications including valproic acid. Noted that also patient had been seeing a physician and in note stated that hydrocodone had helped his headaches. Present plan is to have the patient admitted to determine the cause of the new onset hyponatremia question medications and renal status. Awaiting serial troponin results for anything cardiac. D-dimer is slightly elevated but no signs of any shortness of breath. Also will have pharmacology consult to evaluate medications if this hyponatremia cannot be corrected as to what might be a cause on a medication basis. Will admit patient to the floor. Continue to monitor labs and check for any cardiac abnormalities. Physical therapy to evaluate due to unstable walking risk of falls. And will have case management involved to check with significant other about any help that can be done in the home as the patient is becoming more confused with continued sundowning. Also note that the patient has the hydrocodone prescribed for his back pain averages 4 tablets a day. Patient also let the nurse know on the floor that he was having heartburn/reflux symptoms, medication ordered Hospital Course Hospital Course Hospital Course: Hyponatremia likely secondary to chlorthalidone, polydipsia with free water. Lower suspicion for SIADH from seizure medications as hyponatremia is chronic and patient has been taking seizure medications for a long time. Cardiology started Imdur 30 mg for stable angina. Will follow-up with cardiology within 2 weeks. Patient is agreeable to discontinuing Viagra which she does not use often due to risk of hypotension with Imdur/nitrates. Will get repeat BMP on Thursday, and hopefully follow-up with PCP on that day too. #Acute Hyponatremia: -Sodium on admission was 124, 127 at discharge today. -Discussed continued fluid restriction to 1500 mL a day. - Initiated sodium tablets 1000 mg 3 times a day during inpatient stay. - Discussed with patient in detail the importance of fluid restriction. - BMP every 8 hours. - Magnesium replaced per protocol. ?Urine osmolarity, TSH, cortisol, and lipid panel unremarkable. #Chest Pain: -Continued home medications: Aspirin 81 mg daily, atorvastatin 80 mg daily, metoprolol 50 mg daily, and ranolazine 1000 mg twice a day. Add Imdur 30 mg per cards. -Continuing to hold chlorthalidone. Patient tolerating Imdur 30 without issues. Vital signs stable blood pressure at discharge 132/59, pulse 71, respirations 14, temperature 98.3, O2 96% on room air. ?Discussed with patient stopping Viagra while taking the Imdur. Discussed with patient to inform cardiology if he would like to go back on his Viagra to switch to an alternative medication. ?Chlorthalidone stopped. #History of Seizures: - Seizure precautions in place during admission. - No seizure-like activity noted. - Home medication continued. divalproex acid 500 mg twice a day, lacosamide 150 mg twice a day. Patient does follow with outpatient neurology. #Dementia: ?Seroquel 50 mg at night held during admission, patient to restart medication upon discharge Total time spent on discharge: 32 minutes on chart review, counseling, documentation, and direct care with patient. Exam Data for Last 24 hours Vital signs and Labs for Last 24 Hours: Temp Pulse Resp BP Pulse Ox O2 Del Method 98.3 F 71 14 132/59 L 96 Room Air 03/22/25 08:00 03/22/25 08:00 03/22/25 08:00 03/22/25 08:00 03/22/25 08:00 03/22/25 08:45 Laboratory Results - last 24 hr 03/21/25 05:57: NT-Pro-B Natriuret Pep 121 03/21/25 15:06: Sodium 125 L, Potassium 4.5, Chloride 93 L, Carbon Dioxide 23, Anion Gap 13.5, BUN 19, Creatinine 0.90, Estimated Creat Clear 83, Estimated GFR 83, Est GFR ( Amer) 101, Glucose 97, Calcium 8.9, Triglycerides 171 H, Cholesterol 158, LDL Cholesterol Direct 47.87 L, VLDL Cholesterol 34, HDL Cholesterol 66 H, Cholesterol/HDL Ratio 2.4, TSH 2.12 03/21/25 22:28: Sodium 127 L, Potassium 4.3, Chloride 94 L, Carbon Dioxide 26, Anion Gap 11.3, BUN 18, Creatinine 0.80, Estimated Creat Clear 83, Estimated GFR 96, Est GFR ( Amer) 116, Glucose 85, Calcium 9.0 03/22/25 06:02: Sodium 127 L, Potassium 4.1, Chloride 95 L, Carbon Dioxide 25, Anion Gap 11.1, BUN 16, Creatinine 0.80, Estimated Creat Clear 83, Estimated GFR 96, Est GFR ( Amer) 116, Glucose 90, Calcium 8.9, Total Bilirubin 0.2, AST 26, ALT 11 L, Alkaline Phosphatase 40, Total Protein 6.2 L, Albumin 3.8, Globulin 2.4, Albumin/Globulin Ratio 1.6 I & O for Last 24 hours: Intake & Output 03/19/25 03/20/25 03/21/25 03/22/25 23:59 23:59 23:59 23:59 Intake Total 1110 / 1110 1220 / 1370 390 / 390 Output Total 250 / 250 0 / 0 Balance 860 / 860 1220 / 1370 390 / 390 Weight 87.271 kg 87.77 kg 85.865 kg 85.445 kg Constitutional Constitutional: no acute distress and cooperative *Routine Neck Exam Neck: Present full ROM; Absent JVD *Routine Respiratory Exam Respiratory: Present CTA bilaterally, normal respiratory effort and symmetric chest movement *Routine Cardiovascular Exam Cardiovascular: Present RRR, Normal S1 and Normal S2 *Routine Abdominal Exam Abdominal: Present soft and normoactive bowel sounds; Absent tenderness *Routine Extremities Exam Extremities: Present full ROM and normal capillary refill; Absent edema *Routine Skin Exam Skin: Present intact, dry and warm *Routine Neurological Exam Neurological: Present alert, oriented X3 and normal speech Detailed Neck Exam: Thyroids Thyroid: Absent bruit Results Data Completed and Pending Labs on day of discharge: Labs from last 24 hours 03/22/25 03/21/25 03/21/25 06:02 22:28 15:06 Sodium 127 L 127 L 125 L Potassium 4.1 4.3 4.5 Chloride 95 L 94 L 93 L Carbon Dioxide 25 26 23 Anion Gap 11.1 11.3 13.5 BUN 16 18 19 Creatinine 0.80 0.80 0.90 Estimated Creat Clear 83 83 83 Estimated GFR 96 96 83 Est GFR ( Amer) 116 116 101 Glucose 90 85 97 Calcium 8.9 9.0 8.9 Total Bilirubin 0.2 AST 26 ALT 11 L Alkaline Phosphatase 40 NT-Pro-B Natriuret Pep Total Protein 6.2 L Albumin 3.8 Globulin 2.4 Albumin/Globulin Ratio 1.6 Triglycerides 171 H Cholesterol 158 LDL Cholesterol Direct 47.87 L VLDL Cholesterol 34 HDL Cholesterol 66 H Cholesterol/HDL Ratio 2.4 TSH 2.12 03/21/25 05:57 Sodium Potassium Chloride Carbon Dioxide Anion Gap BUN Creatinine Estimated Creat Clear Estimated GFR Est GFR ( Amer) Glucose Calcium Total Bilirubin AST ALT Alkaline Phosphatase NT-Pro-B Natriuret Pep 121 Total Protein Albumin Globulin Albumin/Globulin Ratio Triglycerides Cholesterol LDL Cholesterol Direct VLDL Cholesterol HDL Cholesterol Cholesterol/HDL Ratio TSH DS: Diagnosis Discharge Diagnosis (1) Acute hyponatremia: Status: Acute Code(s): E87.1 - Hypo-osmolality and hyponatremia (2) Chest pain: Status: Acute Code(s): R07.9 - Chest pain, unspecified Qualifiers: Chest pain type: precordial pain Qualified Code(s): R07.2 - Precordial pain (3) Decreased GFR: Status: Acute Code(s): R94.4 - Abnormal results of kidney function studies (4) Headache: Status: Acute Code(s): R51.9 - Headache, unspecified Qualifiers: Headache chronicity pattern: episodic headache Headache type: unspecified Intractability: not intractable Qualified Code(s): R51.9 - Headache, unspecified (5) Dementia: Status: Chronic Code(s): F03.90 - Unspecified dementia, unspecified severity, without behavioral disturbance, psychotic disturbance, mood disturbance, and anxiety Qualifiers: Alzheimer's disease onset: late onset Dementia behavioral or psychological symptom: with mood disturbance Dementia severity: moderate Dementia type: Alzheimer's Qualified Code(s): G30.1 - Alzheimer's disease with late onset; F02.B3 - Dementia in other diseases classified elsewhere, moderate, with mood disturbance (6) History of seizure: Status: Resolved Code(s): Z87.898 - Personal history of other specified conditions (7) Diabetes: Status: Acute Code(s): E11.9 - Type 2 diabetes mellitus without complications Qualifiers: Diabetes mellitus complication status: with other specified complication Diabetes mellitus care home insulin use: without tank terminal gauger use Diabetes mellitus type: type 2 Qualified Code(s): E11.69 - Type 2 diabetes mellitus with other specified complication (8) Low back pain: Status: Acute Code(s): M54.50 - Low back pain, unspecified Qualifiers: Back pain laterality: unspecified Chronicity: unspecified Sciatica laterality: sciatica laterality unspecified Sciatica presence: with sciatica Qualified Code(s): M54.40 - Lumbago with sciatica, unspecified side (9) Coronary arteriosclerosis: Status: Chronic Code(s): I25.10 - Atherosclerotic heart disease of [place] coronary artery without angina pectoris (10) Dizziness: Status: Acute Code(s): R42 - Dizziness and giddiness (11) Abnormal finding on MRI of brain: Status: Chronic Code(s): R90.89 - Other abnormal findings on diagnostic imaging of central nervous system Problem details: History, findings on brain MRI in January 2022, work-up results and clinical course consistent with acute encephalopathy in the setting of symptomatic hypertension over imposed on chronic multifactorial dementia. 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 Atypical, focal enhancement including meningeal enhancement can be seen with PRESS. Extensive w ork-up failed to demonstrate another etiology He also has history of left-sided numbness, weakness in 2015 and was admitted to [facility]?neurology. 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 Cannot exclude acute sinus thrombosis with partial revascularization. Meds Home Medications and Allergies Home Medications ?Medication ?Instructions ?Recorded ?Confirmed ?Type aspirin 81 mg chewable tablet 81 mg PO DAILY 03/11/19 03/19/25 History divalproex 125 mg capsule,delayed 500 mg (4 x 125 mg) PO HS History 09/22/24 03/19/25 Rx release sprinkle of seizures, headache 90 day s #360 caps ranolazine 1,000 mg 1,000 mg PO BID 90 days #180 tabs 09/22/24 03/19/25 Rx tablet,extended release,12 hr metformin 500 mg tablet 500 mg PO BID 90 days #180 t abs 10/17/24 03/19/25 Rx lacosamide 150 mg tablet 150 mg PO BID 90 days #180 t abs 10/31/24 03/19/25 Rx potassium chloride 10 mEq 10 meq PO DAILY 90 days #90 tabs 11/14/24 03/19/25 Rx tablet,extended release levocetirizine 5 mg tablet 5 mg PO DAILY #120 tabs 03/19/25 Rx atorvastatin 80 mg tablet 80 mg PO DAILY 90 days #90 t abs 01/17/25 03/19/25 Rx cholecalciferol (vitamin D3) 25 25 mcg PO DAILY 90 day s #90 caps 01/25/25 03/19/25 Rx mcg (1,000 unit) capsule fluticasone propionate 50 1 spray intranasal BID #16 g laney 02/02/25 03/19/25 Rx mcg/actuation nasal spray,suspension (Flonase Allergy Relief) hydrocodone 7.5 mg-acetaminophen 1 tab PO QID PRN pain #120 tabs 03/02/25 03/19/25 Rx 325 mg tablet azelastine 137 mcg (0.1 %) nasal 1 spray intranasal BI D #30 mL 03/10/25 03/19/25 Rx spray metoprolol succinate 50 mg 50 mg PO DAILY 90 days #90 tabs 03/14/25 03/19/25 Rx tablet,extended release 24 hr clopidogrel 75 mg tablet 75 mg PO DAILY 03/19/2511/12 History nitroglycerin 0.4 mg sublingual 0.4 mg sublingual N EEDED PRN 03/19/25 03/19/25 History tablet Chest Pain quetiapine 50 mg tablet 50 mg PO HS PRN Insomnia 11/1203/19/25 History isosorbide mononitrate 30 mg 30 mg PO DAILY 30 days #3 0 tabs 03/22/25 Rx tablet,extended release 24 hr New Prescriptions to Start Prescriptions: isosorbide mononitrate Kaveh Johnson Allergies Allergy/AdvReac Type Severity Reaction Status Date / Time isosorbide (From Imdur) AdvReac Mild Verified 03/10/25 08:20 Discharge Plan Disposition Patient Disposition: Home, Self-Care Condition: Fair Discharge Order Discharge Orders: Discharge Order (Routine); Ordered 03/22/25 Ordered By: Kaveh Jonhson Follow up Plan Follow up with: Brandon Mays PA [Physician Customer Quality Engineer, Cardiology] - 04/05/25 10:30 am Malcolm Dickerson MD [Primary Care Provider, Family Practice] - 04/04/25 9:00 am Prescriptions/Medication Reconciliation: New isosorbide mononitrate 30 mg Tablet Extended Release 24 Hr 30 mg PO DAILY 30 Days Qty: 30 0RF Continued divalproex 125 mg capsule, delayed rel sprinkle 500 mg PO HS 90 Days Qty: 360 3RF ranolazine 1,000 mg tablet extended release 12 hr 1,000 mg PO BID 90 Days Qty: 180 3RF fluticasone propionate [Flonase Allergy Relief] 50 mcg/actuation spray,suspension 1 spray intranasal BID Qty: 16 3RF Rx Instructions: administer into each nostril azelastine 137 mcg (0.1 %) spray,non-aerosol 1 spray intranasal BID Qty: 30 2RF Rx Instructions: administer into each nostril for 1 week metformin 500 mg tablet 500 mg PO BID 90 Days Qty: 180 4RF lacosamide 150 mg tablet 150 mg PO BID 90 Days Qty: 180 4RF potassium chloride 10 mEq tablet extended release 10 meq PO DAILY 90 Days Qty: 90 2RF levocetirizine 5 mg tablet 5 mg PO DAILY Qty: 120 4RF atorvastatin 80 mg tablet 80 mg PO DAILY 90 Days Qty: 90 4RF cholecalciferol (vitamin D3) 25 mcg (1,000 unit) capsule 25 mcg PO DAILY 90 Days Qty: 90 4RF hydrocodone-acetaminophen 7.5-325 mg tablet 1 tab PO QID PRN (Reason: pain) Qty: 120 0RF metoprolol succinate 50 mg tablet extended release 24 hr 50 mg PO DAILY 90 Days Qty: 90 4RF aspirin 81 MG tablet,chewable 81 mg PO DAILY nitroglycerin 0.4 mg tablet, sublingual 0.4 mg sublingual NEEDED PRN (Reason: Chest Pain) clopidogrel 75 mg tablet 75 mg PO DAILY quetiapine 50 mg tablet 50 mg PO HS PRN (Reason: Insomnia) Discontinued chlorthalidone 25 mg tablet 25 mg PO DAILY 90 Days Qty: 90 3RF prochlorperazine maleate 10 mg tablet 10 mg PO Q8H PRN (Reason: nausea and vomiting) Qty: 90 1RF sildenafil [Viagra] 50 mg tablet 50 mg PO DIRECTED Other Ambulatory Orders: Basic Metabolic Panel (Routine) Timeframe: [id number] Facility: [facility] - Location: Laboratory Ordered By: Kaveh Johnson Problem Reconciliation Problems Reviewed?: Yes Patient Discharge Instructions Patient Instructions: DI for Hyponatremia, DI for Headache, DI for Chest Pain Print Language: Swedish Providers Primary Care Provider: Malcolm Dickerson Admit Provider: Ivan Alonso Attending Provider: Ivan Alonso
--- NOTE | 2025-03-22 12:08 | EXP.DC.SUM ---
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 The significant other noted that he has a history of chronic chest pain and also chronic headaches. Patient has a past history of alcohol and substance abuse, also history of cardiac vascular disease with several stents. Noting a chronic renal insufficiency started since around 07/07/2024. HIs creatinine kicked up with BUN from 16/0.9 to 23/1.30 and now higher. This correlates with a admission related to chest pain and cardiac catheterization. Also noting about that time that Lasix was stopped. Noting that the patient's weights been kind of variable as high as 226 presently at 191. Approximately May 2024 was at 217 pounds. No signs of congestive heart failure at this time and patient is not complaining of chest pain during my exam Mentation evaluation: Patient's significant other (they have been together for 50 years, lived together for last 10 yrs.) tells me that his sundowning is getting worse. Review of chart shows this problem has been addressed for the last 7 months. There has been an increase in Seroquel due to behavior and sundowning. Patient also noted with chronic headaches. Has been on several antiseizure medications including valproic acid. Noted that also patient had been seeing a physician and in note stated that hydrocodone had helped his headaches. Present plan is to have the patient admitted to determine the cause of the new onset hyponatremia question medications and renal status. Awaiting serial troponin results for anything cardiac. D-dimer is slightly elevated but no signs of any shortness of breath. Also will have pharmacology consult to evaluate medications if this hyponatremia cannot be corrected as to what might be a cause on a medication basis. Will admit patient to the floor. Continue to monitor labs and check for any cardiac abnormalities. Physical therapy to evaluate due to unstable walking risk of falls. And will have case management involved to check with significant other about any help that can be done in the home as the patient is becoming more confused with continued sundowning. Also note that the patient has the hydrocodone prescribed for his back pain averages 4 tablets a day. Patient also let the nurse know on the floor that he was having heartburn/reflux symptoms, medication ordered Exam Data for Last 24 hours Vital signs and Labs for Last 24 Hours: Temp Pulse Resp BP Pulse Ox O2 Del Method 98.3 F 71 14 132/59 L 96 Room Air 03/22/25 08:00 03/22/25 08:00 03/22/25 08:00 03/22/25 08:00 03/22/25 08:00 03/22/25 08:45 Laboratory Results - last 24 hr 03/21/25 05:57: NT-Pro-B Natriuret Pep 121 03/21/25 15:06: Sodium 125 L, Potassium 4.5, Chloride 93 L, Carbon Dioxide 23, Anion Gap 13.5, BUN 19, Creatinine 0.90, Estimated Creat Clear 83, Estimated GFR 83, Est GFR ( Amer) 101, Glucose 97, Calcium 8.9, Triglycerides 171 H, Cholesterol 158, LDL Cholesterol Direct 47.87 L, VLDL Cholesterol 34, HDL Cholesterol 66 H, Cholesterol/HDL Ratio 2.4, TSH 2.12 03/21/25 22:28: Sodium 127 L, Potassium 4.3, Chloride 94 L, Carbon Dioxide 26, Anion Gap 11.3, BUN 18, Creatinine 0.80, Estimated Creat Clear 83, Estimated GFR 96, Est GFR ( Amer) 116, Glucose 85, Calcium 9.0 03/22/25 06:02: Sodium 127 L, Potassium 4.1, Chloride 95 L, Carbon Dioxide 25, Anion Gap 11.1, BUN 16, Creatinine 0.80, Estimated Creat Clear 83, Estimated GFR 96, Est GFR ( Amer) 116, Glucose 90, Calcium 8.9, Total Bilirubin 0.2, AST 26, ALT 11 L, Alkaline Phosphatase 40, Total Protein 6.2 L, Albumin 3.8, Globulin 2.4, Albumin/Globulin Ratio 1.6 I & O for Last 24 hours: Intake & Output 03/19/25 03/20/25 03/21/25 03/22/25 23:59 23:59 23:59 23:59 Intake Total 1110 / 1110 1220 / 1370 390 / 390 Output Total 250 / 250 0 / 0 Balance 860 / 860 1220 / 1370 390 / 390 Weight 87.271 kg 87.77 kg 85.865 kg 85.445 kg Constitutional Constitutional: no acute distress *Routine HEENT Exam Head: Present normocephalic ENT: Present mucous membranes moist *Routine Neck Exam Neck: Present full ROM *Routine Respiratory Exam Respiratory: Present CTA bilaterally, normal respiratory effort and symmetric chest movement *Routine Cardiovascular Exam Cardiovascular: Present RRR, Normal S1 and Normal S2 *Routine Abdominal Exam Abdominal: Present soft and normoactive bowel sounds; Absent tenderness *Routine Extremities Exam Extremities: Present full ROM and normal capillary refill; Absent edema *Routine Skin Exam Skin: Present intact, dry and warm *Routine Neurological Exam Neurological: Present alert and oriented X3 Detailed Neck Exam: Thyroids Thyroid: Absent bruit Results Data Completed and Pending Labs on day of discharge: Labs from last 24 hours 03/22/25 03/21/25 03/21/25 06:02 22:28 15:06 Sodium 127 L 127 L 125 L Potassium 4.1 4.3 4.5 Chloride 95 L 94 L 93 L Carbon Dioxide 25 26 23 Anion Gap 11.1 11.3 13.5 BUN 16 18 19 Creatinine 0.80 0.80 0.90 Estimated Creat Clear 83 83 83 Estimated GFR 96 96 83 Est GFR ( Amer) 116 116 101 Glucose 90 85 97 Calcium 8.9 9.0 8.9 Total Bilirubin 0.2 AST 26 ALT 11 L Alkaline Phosphatase 40 NT-Pro-B Natriuret Pep Total Protein 6.2 L Albumin 3.8 Globulin 2.4 Albumin/Globulin Ratio 1.6 Triglycerides 171 H Cholesterol 158 LDL Cholesterol Direct 47.87 L VLDL Cholesterol 34 HDL Cholesterol 66 H Cholesterol/HDL Ratio 2.4 TSH 2.12 03/21/25 05:57 Sodium Potassium Chloride Carbon Dioxide Anion Gap BUN Creatinine Estimated Creat Clear Estimated GFR Est GFR ( Amer) Glucose Calcium Total Bilirubin AST ALT Alkaline Phosphatase NT-Pro-B Natriuret Pep 121 Total Protein Albumin Globulin Albumin/Globulin Ratio Triglycerides Cholesterol LDL Cholesterol Direct VLDL Cholesterol HDL Cholesterol Cholesterol/HDL Ratio TSH DS: Diagnosis Discharge Diagnosis (1) Acute hyponatremia: Status: Acute Code(s): E87.1 - Hypo-osmolality and hyponatremia (2) Chest pain: Status: Acute Code(s): R07.9 - Chest pain, unspecified Qualifiers: Chest pain type: precordial pain Qualified Code(s): R07.2 - Precordial pain (3) Decreased GFR: Status: Acute Code(s): R94.4 - Abnormal results of kidney function studies (4) Headache: Status: Acute Code(s): R51.9 - Headache, unspecified Qualifiers: Headache type: unspecified Headache chronicity pattern: episodic headache Intractability: not intractable Qualified Code(s): R51.9 - Headache, unspecified (5) Dementia: Status: Chronic Code(s): F03.90 - Unspecified dementia, unspecified severity, without behavioral disturbance, psychotic disturbance, mood disturbance, and anxiety Qualifiers: Dementia type: Alzheimer's Alzheimer's disease onset: late onset Dementia severity: moderate Dementia behavioral or psychological symptom: with mood disturbance Qualified Code(s): G30.1 - Alzheimer's disease with late onset; F02.B3 - Dementia in other diseases classified elsewhere, moderate, with mood disturbance (6) History of seizure: Status: Resolved Code(s): Z87.898 - Personal history of other specified conditions (7) Diabetes: Status: Acute Code(s): E11.9 - Type 2 diabetes mellitus without complications Qualifiers: Diabetes mellitus type: type 2 Diabetes mellitus skilled nursing insulin use: without skilled nursing use Diabetes mellitus complication status: with other specified complication Qualified Code(s): E11.69 - Type 2 diabetes mellitus with other specified complication (8) Low back pain: Status: Acute Code(s): M54.50 - Low back pain, unspecified Qualifiers: Chronicity: unspecified Back pain laterality: unspecified Sciatica presence: with sciatica Sciatica laterality: sciatica laterality unspecified Qualified Code(s): M54.40 - Lumbago with sciatica, unspecified side (9) Coronary arteriosclerosis: Status: Chronic Code(s): I25.10 - Atherosclerotic heart disease of [place] coronary artery without angina pectoris (10) Dizziness: Status: Acute Code(s): R42 - Dizziness and giddiness (11) Abnormal finding on MRI of brain: Status: Chronic Code(s): R90.89 - Other abnormal findings on diagnostic imaging of central nervous system Problem details: History, findings on brain MRI in January 2022, work-up results and clinical course consistent with acute encephalopathy in the setting of symptomatic hypertension over imposed on chronic multifactorial dementia. 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 Atypical, focal enhancement including meningeal enhancement can be seen with PRESS. Extensive work-up failed to demonstrate another etiology He also has history of left-sided numbness, weakness in 2015 and was admitted to [facility]?neurology. 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 Cannot exclude acute sinus thrombosis with partial revascularization. Meds Home Medications and Allergies Home Medications ?Medication ?Instructions ?Recorded ?Confirmed ?Type aspirin 81 mg chewable tablet 81 mg PO DAILY 03/11/19 03/19/25 History divalproex 125 mg capsule,delayed 500 mg (4 x 125 mg) PO HS History 09/22/24 03/19/25 Rx release sprinkle of seizures, headache 90 days #360 caps ranolazine 1,000 mg 1,000 mg PO BID 90 days #180 tabs 09/22/24 03/19/25 Rx tablet,extended release,12 hr metformin 500 mg tablet 500 mg PO BID 90 days #180 tabs 10/17/24 03/19/25 Rx lacosamide 150 mg tablet 150 mg PO BID 90 days #180 tabs 10/31/24 03/19/25 Rx potassium chloride 10 mEq 10 meq PO DAILY 90 days #90 tabs 11/14/24 03/19/25 Rx tablet,extended release levocetirizine 5 mg tablet 5 mg PO DAILY #120 tabs 01/16/25 03/19/25 Rx atorvastatin 80 mg tablet 80 mg PO DAILY 90 days #90 tabs 01/17/25 03/19/25 Rx cholecalciferol (vitamin D3) 25 25 mcg PO DAILY 90 days #90 caps 01/25/25 03/19/25 Rx mcg (1,000 unit) capsule fluticasone propionate 50 1 spray intranasal BID #16 grams 02/02/25 03/19/25 Rx mcg/actuation nasal spray,suspension (Flonase Allergy Relief) hydrocodone 7.5 mg-acetaminophen 1 tab PO QID PRN pain #120 tabs 03/02/25 03/19/25 Rx 325 mg tablet azelastine 137 mcg (0.1 %) nasal 1 spray intranasal BID #30 mL 03/10/25 03/19/25 Rx spray metoprolol succinate 50 mg 50 mg PO DAILY 90 days #90 tabs 03/14/25 03/19/25 Rx tablet,extended release 24 hr clopidogrel 75 mg tablet 75 mg PO DAILY 03/19/25 03/19/25 History nitroglycerin 0.4 mg sublingual 0.4 mg sublingual NEEDED PRN 03/19/25 03/19/25 History tablet Chest Pain quetiapine 50 mg tablet 50 mg PO HS PRN Insomnia 03/19/25 03/19/25 History isosorbide mononitrate 30 mg 30 mg PO DAILY 30 days #30 tabs 03/22/25 Rx tablet,extended release 24 hr New Prescriptions to Start Prescriptions: isosorbide mononitrate Kaveh Johnson Allergies Allergy/AdvReac Type Severity Reaction Status Date / Time isosorbide (From Imdur) AdvReac Mild Verified 03/10/25 08:20 Discharge Plan Disposition Patient Disposition: Home, Self-Care Condition: Fair Discharge Order Discharge Orders: Discharge Order (Routine); Ordered 03/22/25 Ordered By: Kaveh Johnson Follow up Plan Follow up with: Brandon Mays PA [Physician Quality Reviewer, Cardiology] - 04/05/25 10:30 am Malcolm Dickerson MD [Primary Care Provider, Family Practice] - 04/04/25 9:00 am Prescriptions/Medication Reconciliation: New isosorbide mononitrate 30 mg Tablet Extended Release 24 Hr 30 mg PO DAILY 30 Days Qty: 30 0RF Continued divalproex 125 mg capsule, delayed rel sprinkle 500 mg PO HS 90 Days Qty: 360 3RF ranolazine 1,000 mg tablet extended release 12 hr 1,000 mg PO BID 90 Days Qty: 180 3RF fluticasone propionate [Flonase Allergy Relief] 50 mcg/actuation spray,suspension 1 spray intranasal BID Qty: 16 3RF Rx Instructions: administer into each nostril azelastine 137 mcg (0.1 %) spray,non-aerosol 1 spray intranasal BID Qty: 30 2RF Rx Instructions: administer into each nostril for 1 week metformin 500 mg tablet 500 mg PO BID 90 Days Qty: 180 4RF lacosamide 150 mg tablet 150 mg PO BID 90 Days Qty: 180 4RF potassium chloride 10 mEq tablet extended release 10 meq PO DAILY 90 Days Qty: 90 2RF levocetirizine 5 mg tablet 5 mg PO DAILY Qty: 120 4RF atorvastatin 80 mg tablet 80 mg PO DAILY 90 Days Qty: 90 4RF cholecalciferol (vitamin D3) 25 mcg (1,000 unit) capsule 25 mcg PO DAILY 90 Days Qty: 90 4RF hydrocodone-acetaminophen 7.5-325 mg tablet 1 tab PO QID PRN (Reason: pain) Qty: 120 0RF metoprolol succinate 50 mg tablet extended release 24 hr 50 mg PO DAILY 90 Days Qty: 90 4RF aspirin 81 MG tablet,chewable 81 mg PO DAILY nitroglycerin 0.4 mg tablet, sublingual 0.4 mg sublingual NEEDED PRN (Reason: Chest Pain) clopidogrel 75 mg tablet 75 mg PO DAILY quetiapine 50 mg tablet 50 mg PO HS PRN (Reason: Insomnia) Discontinued chlorthalidone 25 mg tablet 25 mg PO DAILY 90 Days Qty: 90 3RF prochlorperazine maleate 10 mg tablet 10 mg PO Q8H PRN (Reason: nausea and vomiting) Qty: 90 1RF sildenafil [Viagra] 50 mg tablet 50 mg PO DIRECTED Other Ambulatory Orders: Basic Metabolic Panel (Routine) Timeframe: [id number] Facility: [facility] - Location: Laboratory Ordered By: Kaveh Johnson Problem Reconciliation Problems Reviewed?: Yes Patient Discharge Instructions Patient Instructions: DI for Hyponatremia, DI for Headache, DI for Chest Pain Print Language: Haitian Providers Primary Care Provider: Malcolm Dickerson Admit Provider: Ivan Alonso Attending Provider: Ivan Alonso
--- NOTE | 2025-03-23 10:42 | SW/DCPLANNER ---
Spoke with patient on the phone. Patient's stated that he is doing well. Patient's stated that she is aware of his upcoming appointments. Patient's stated that she is going today to pick up and delivery driver his new medicine due to [facility] not having it. Patient's stated that she has no concerns or questions at this time. Dieter BEATTY Residence Counselor.
[2025-03-24 02:14] LABS: Osmolality, Urine 735 mOsmol/kg (.)
== END 2025-03-22 12:03 | disposition home health service (06) | DRG 641 ==
LOC: ER 19:12 → 2ND 19:59
PROVIDERS: Nurse Practitioner Family; Student in an Organized Health Care Education/Training Program; Admitting Provider Internal Medicine Adolescent Medicine; Emergency Provider Student in an Organized Health Care Education/Training Program; PCP Family Medicine; Visit Provider Internal Medicine Adolescent Medicine
DX: E87.1 Hypo-osmolality and hyponatremia (principal); F02.83 Dementia in other diseases classified elsewhere, unspecified severity, with mood disturbance; G30.1 Alzheimer's disease with late onset; M54.40 Lumbago with sciatica, unspecified side; E11.9 Type 2 diabetes mellitus without complications; T50.2X5A Adverse effect of carbonic-anhydrase inhibitors, benzothiadiazides and other diuretics, initial encounter; R51.9 Headache, unspecified; R07.2 Precordial pain; I25.118 Atherosclerotic heart disease of native coronary artery with other forms of angina pectoris; Z79.82 Long term (current) use of aspirin; Z87.891 Personal history of nicotine dependence; Z79.84 Long term (current) use of oral hypoglycemic drugs; Z95.5 Presence of coronary angioplasty implant and graft
CPT/HCPCS: 36415; 71045; 71275; 80048; 80053; 80061; 82533; 83735; 83880; 83935; 84443; 84484; 84540; 85025; 85378; 93005; 93306; 97162; J0131; J2405; J3475; J7120; Q9967

== ENCOUNTER 2025-03-24 07:35 | Outpatient (CLI) | payer MEDICARE, SELFPAY ==
[2025-03-24 09:18] LABS: Chloride 95 mmol/L (98-107); Potassium 4.5 mmoL/L (3.5-5.1); Sodium 129 mmol/L (136-145)
[2025-03-24 09:21] LABS: Anion Gap 10.5 mEq/L (5-15); Blood Urea Nitrogen 16 mg/dl (9-20); Calcium 9.5 mg/dl (8.4-10.2); Carbon Dioxide 28 mmol/L (22.0-30.0); Estimated Glomerular Filt Rate 74 ml/min (>60); GFR (African American) 89 ML/MIN (>60); Glucose 101 mg/dl (74-100)
== END 2025-03-24 23:59 | disposition home or self-care (01) ==
LOC: LAB 07:35
PROVIDERS: PCP Family Medicine; Visit Provider Student in an Organized Health Care Education/Training Program
DX: E87.1 Hypo-osmolality and hyponatremia (principal)
CPT/HCPCS: 80048

== ENCOUNTER 2025-03-30 09:59 | Outpatient (CLI) | payer MEDICARE, SELFPAY ==
[2025-03-30 19:44] LABS: Alanine Aminotransferase 11 U/L (12-78); Albumin/Globulin Ratio 1.5 (1.1-1.8); Alkaline Phosphatase 36 U/L (38-126); Anion Gap 13.8 mEq/L (5-15); Aspartate Amino Transferase 23 U/L (17-59); Bilirubin,Total 0.4 mg/dl (0.2-1.3); Blood Urea Nitrogen 24 mg/dl (9-20); Calcium 9.4 mg/dl (8.4-10.2); Carbon Dioxide 25 mmol/L (22.0-30.0); Chloride 102 mmol/L (98-107); Estimated Glomerular Filt Rate 66 ml/min (>60); GFR (African American) 80 ML/MIN (>60); Globulin 2.6 g/dL (1.3-3.2); Glucose 90 mg/dl (74-100); Potassium 5.8 mmoL/L (3.5-5.1); Sodium 135 mmol/L (136-145); Total Protein,Serum 6.6 g/dl (6.3-8.2)
--- OUTSIDE RECORDS SUMMARY | 2025-03-31 23:42 | XMS_ITS | Encounter Summary ---
Author Organization [facility] [facility] Address [address] [place] [address] Care Team Providers Care Technology Lab Teacher Name Role Phone Unavailable Primary Care Provider Unavailabl e Encounter Details Date Type Department Care Team (Late st Contact Info) Description 01/08/2022 Transcribed Document [facility] [place] [facility] [address] ProviderCarlos MD [facility] [place] [id number] Social History Tobacco Use Types Packs/Day Years Used Date Smoking Tobacco: Never Assessed Sex and Gender Information Value Date Recorded Sex Assigned at Male 04/15/2022 4:33 PM CDT Legal Sex Male 4:33 PM CDT Gender Identity Male 04/15/2022 4:33 PM CDT Sexual Orientation Not on file documented as of this encounter Miscellaneous Notes * Cerner Conversion Note - Carlos ProviderMD - 01/08/2022 2:04 PM CDT UM Authorization Entered On: 01/08/2022 14:04 EDT Performed On: 01/08/2022 14:04 EDT by Angelique Joyce, Sign Shop Supervisor Primary Insurance Authorization Authorization and Policy Numbers : Insurance 1 Health Plan: [place] [employer] Policy Number: [id number] Authorization Number: Insurance Primary Name : [place] [employer] - Policy Number: [id number] Authorization Status-Primary : Drg approved Auth/Referral Contact Name-Primary : DC Reference Number-Primary : [id number] Authorization Number-Primary : [id number] Number of Days Authorized-Primary : 5 Day(s) Authorized Service Begin Date-Primary : 01/03/2022 EDT Authorized Service End Date-Primary : 01/08/2022 EDT Authorization Comments-Primary : Discharge summary faxed. Historical Authorization Comments-Primary : Comment 1: Authorized per fax 01/08/22 @ 1237. Approved DRG inpatient length of stay 01/03 - 01/09. (Angelique Joyce, Sign Shop Supervisor 01/08/2022 14:03) Comment 2: Clinicals faxed via [employer] for IP approval (ISAIAS NAVARRO RN 01/07/2022 12:21) Comment 3: AUTH SUBMITTED VIA [employer] CLINICALS ATTACHED (Olive Dolan RN 01/04/2022 15:27) Angelique Joyce, Sign Shop Supervisor - 01/08/2022 14:04 EDT Electronically signed by Jayde Babin Conversion Adjunct Psychology Faculty Member Cerner at 02/02/2023 1:40 PM CDT documented in this encounter Plan of Treatment Not on file documented as of this encounter Visit Diagnoses Not on filedocumented in this encounter
--- OUTSIDE RECORDS SUMMARY | 2025-03-31 23:42 | XMS_ITS | Encounter Summary ---
Author Organization [employer] Address [address] [place] [address] Care Team Providers Care Mailroom Supervisor Name Role Phone Unavailable Primary Care Provider Unavailabl e Encounter Details Date Type Department Care Team (Late st Contact Info) Description 01/06/2022 Transcribed Document [facility] [place] [address] [place] [address] ProviderCarlos MD [address] [place] [address] Social History Tobacco Use Types Packs/Day Years Used Date Smoking Tobacco: Never Assessed Sex and Gender Information Value Date Recorded Sex Assigned at Male 04/15/2022 4:33 PM CDT Legal Sex Male 4:33 PM CDT Gender Identity Male 04/15/2022 4:33 PM CDT Sexual Orientation Not on file documented as of this encounter Miscellaneous Notes * Cerner Conversion Note - Historical Provider, - 01/06/2022 12:07 PM CDT Patient: INEZ SHOOK JR Age: 66 years Sex: Male : 1955 Associated Diagnoses: None Author: ANA TORRES DO Subjective pt seen by me this morning, he tells me that he is doing ok, no coughing or sob, no abd pain or n/v, no wheezing. did have a bm overnight. Objective Intake and Output Intake & Output Totals Last 24 Hours (7a-7a) Intake (11 Events) Continuous Infusions (800 mL) Medications (1 mL) Oral Intake (720 mL) Output (2 Events) Schmid Catheter (1000 mL) Input Total: 1521 mL Output Total: 1000 mL Balance: 521 mL VS/Measurements Vitals Signs (last 24 hrs) Last Charted Minimum Maximum Temp 97.5 (JAN 06 06:00) 97.5 (JAN 06 06:00) 98.3 (JAN 05 15:35) Apical HR 60 (JAN 06 09:41) 60 (JAN 06 09:41) 60 (JAN 06 09:41) Mon HR 69 (JAN 06 11:27) 58 (JAN 05 15:35) 77 (JAN 06 08:23) Resp Rate 20 (JAN 06:) 16 (JAN 05 18:00) 20 (JAN 06 11:23) SBP 120 (JAN 06 06:00) 112 (JAN 05:35) 135 (JAN 05 18:00) DBP 74 (JAN 06 06:00) 66 (JAN 05 23:45) 74 (JAN 06 06:00) MAP 103 (JAN 06 03:30) 82 (JAN 05:35) 108 (JAN 05 18:00) SpO2 98 (JAN 06:) 95 (JAN 05 23:45) 98 (JAN 06:) General: No acute distress. Eye: Pupils are equal, round and reactive to light, Normal conjunctiva. HENT: Normocephalic, Normal hearing. Respiratory: on room air, no wheezing or rhonchi. Cardiovascular: Normal rate, Regular rhythm, No murmur, No edema. Gastrointestinal: Soft, Non-tender, Non-distended, Normal bowel sounds. Genitourinary: schmid in place draining clear pink urine. . Integumentary: Warm, Dry. Neurologic: Alert, knows its december 2021. tells me that he is 23 yo. no tremor. . Psychiatric: Cooperative, Appropriate mood & affect. Results Review General results Interpretation: JAN 06 06:38 L 134 103 C 109 / H 161 4.0 L 19 H 8.60 \ JAN 06 06:38 \ L 9.8 / 8.5 217 / L 29.4 \ Labs (Last four charted values) WBC 8.5 (JAN 06) 5.3 (JAN 05) 6.7 (JAN 04) 8.2 (JAN 03) HB L 9.8 (JAN 06) L 11.2 (JAN 05) L 11.4 (JAN 04) L 11.3 (JAN 03) HCT L 29.4 (JAN 06) L 32.8 (JAN 05) L 36.4 (JAN 04) L 34.6 (DEC 18) Plt 217 (JAN 06) 228 (JAN 05) 206 (JAN 04) 207 (JAN 03) Na L 134 (JAN 06) 136 (JAN 05) L 135 (JAN 04) 138 (JAN 04) K 4.0 (JAN 06) 4.7 (JAN 05) 4.2 (JAN 04) 4.7 (JAN 04) Cl 103 (JAN 06) 103 (JAN 05) 103 (JAN 04) 106 (JAN 04) CO2 L 19 (JAN 06) 21 (JAN 05) L 19 (JAN 04) L 15 (JAN 04) BUN C 109 (JAN 06) C 108 (JAN 05) C 98 (JAN 04) C 97 (JAN 04) Cr H 8.60 (JAN 06) H 9.90 (JAN 05) H 10.60 (JAN 04) H 11.00 (JAN 04) Glu R H 161 (JAN 06) H 159 (JAN 05) 104 (JAN 04) 94 (JAN 04) Ca L 8.1 (JAN 06) 8.7 (JAN 05) L 8.2 (JAN 04) L 8.1 (JAN 04) Lactic 1.7 (JAN 04) PT 10.6 (JAN 04) INR 1.0 (JAN 04) AST 25 (JAN 04) 25 (JAN 03) ALT L 14 (JAN 04) 16 (JAN 03) ALK P 51 (JAN 04) 49 (JAN 03) T Bili 0.4 (JAN 04) 0.4 (JAN 03) PTN 6.7 (JAN 04) 7.3 (JAN 03) ALB L 2.5 (JAN 06) L 2.6 (JAN 05) L 2.8 (JAN 04) L 2.9 (JAN 03) Radiology Results (Last 48 hours) [id number] -- 01/03/2022 20:35 CR Abdomen 1 Vw Portable (01/05/2022 07:40) Result: Single view abdomenHISTORY: Epigastric pain .ABDOMEN: Single view of the abdomen demonstrates a nonspecific bowelgas pattern . No abnormal calcifications are identified .IMPRESSION: Nonspecific bowel gas pattern .Images reviewed, interpreted, and dictated by Jose Aaron MD Impression and Plan ZAHRA with metabolic acidosis, improving. - baseline renal function, per ER note, with creatinine of 0.9 on 11/08. - added po bicarb on 01/04 -renal us nml - nephrology consult appreciated - creatinine slowly improving with iv fluids. - hold lasix/lisinopril - ER CT Abd showed no hydronephrosis or stones uremic encephalopathy - from above - monitor copd with acute exacerbation from rhinovirus, poa - wean solumedrol to prednisone 40 mg x 5 days today. - continue nebs and doxy - stopped smoking in 2014 [place] - noncompliant with cpap at home htn - hold lisinopril chf, type unknown - continue aspirin, statin, plavix. type 2 dm - a1c 6.7 - ssi d/w rn and CM 01/04 d/w girlfriend yajaira, via phone on 01/04. pt has 2 sons and daughter. per girlfriend pt does not have HCS or POA. 01/05: no family present. creatinine slightly improved, pt less confused, no wheezing today- wean solumedrol to prednisone. 01/06: creatinine continues to slowly improve, pt still confused today- tells me that he is 23 yo- mentation is slightly better than two days ago. continue ivf and monitor renal function. time spent: 28 min discharge goals: monitor renal function anticipated discharge disposition: home when ZAHRA resolved, likely in 2 days. Ana Tabor Hospitalist pager- [phone] documented in this encounter Plan of Treatment Not on file documented as of this encounter Visit Diagnoses Not on filedocumented in this encounter
--- OUTSIDE RECORDS SUMMARY | 2025-03-31 23:42 | XMS_ITS | Encounter Summary ---
Author Organization [employer] Address [address] [place] [address] Care Team Providers Care Veneer Clipper Name Role Phone Unavailable Primary Care Provider Unavailabl e Encounter Details Date Type Department Care Team (Late st Contact Info) Description 01/03/2022 Transcribed Document [facility] [place] [facility] [place] [address] ProviderCarlos MD [facility] [place], [place] [id number] Social History Tobacco Use Types Packs/Day Years Used Date Smoking Tobacco: Never Assessed Sex and Gender Information Value Date Recorded Sex Assigned at Male 04/15/2022 4:33 PM CDT Legal Sex Male 4:33 PM CDT Gender Identity Male 04/15/2022 4:33 PM CDT Sexual Orientation Not on file documented as of this encounter Miscellaneous Notes * Cerner Conversion Note - Historical Provider, - 01/03/2022 8:32 PM CDT Admission History, Adult Entered On: 01/03/2022 21:46 EDT Performed On: 01/03/2022 20:32 EDT by nAg Regan NON EMP RN Advance Directive Patient has Advance Directive *Q : Yes, Advance Directive with the patient Advance Directive Type : Living will Copy Advance Directive Verified/on Chart : No Ang Regan NON EMP RN - 01/03/2022 21:38 EDT Anesthesia/Transfusion History Family History of Anesthesia Reaction : No prior transfusion(s) Transfusion History : Prior anesthesia without reaction Family History of Anesthesia Reaction : None Ang Regan NON EMP RN - 01/03/2022 21:38 EDT Functional Assessment Living Situation : Home Patient Lives With : Significant other(s) Current Home Treatments : Blood glucose monitoring Ang Regan NON EMP RN - 01/03/2022 21:38 EDT General Info Want Family/Rep/Phys Notified of Admit : No Emergency Contact #1 : Izabela Stovall Emergency Contact #1 Phone Number : [phone] Emergency Contact #1 Relationship : girlfriend Emergency Contact #2 : none Emergency Contact #2 Phone Number : none Emergency Contact #2 Relationship : none Primary Language : Danish Communication Barrier : Cognitive Corn Cutter Operator Needed : No Ang Regan NON EMP RN - 01/03/2022 21:38 EDT Fall Risk Scales ABCs Fall Injury Risk Identification : Bones ABC Fall Injury Risk : Moderate to high injury risk SUAREZ Hx Falls Immediate/Within 3 Months : Yes Suarez Secondary Diagnosis : Yes SUAREZ Use of Ambulatory Aid : None SUAREZ IV Therapy or IV Access : Yes Suarez Gait/Transferring : Weak Suarez Mental Status : Overestimates/Forgets limitations Suarez Fall Risk Score : 85 SUAREZ Fall Scale Risk Level : 46 or > High Risk [place] Fall Interventions : Adequate lighting, Assistive devices within reach, Bed in low position, Call device within reach, Hourly comfort/safety rounds, Non-slip footwear, Personal items within reach, Reinforced to call for assistance before getting out of bed, Room free of clutter/spills, Upper side-rails up, Wheels locked Ang Regan NON EMP RN - 01/03/2022 21:38 EDT Health Histories Smoking Status : Former smoker, quit more than 30 days ago Smokeless Tobacco Status : Former smokeless tobacco user, quit more than 30 days ago Ang Regan NON EMP RN - 01/03/2022 21:38 EDT Social History (As Of: 01/03/2022 21:46:59 EDT) Height and Weight, Clinical Dosing Weight Source : Stated Farzana Lomeli RN-PATIENT CARE BEDSIDE NON-EXEMPT - 01/04/2022 14:43 EDT Height Source : Stated Height Entry Format : [place] Height, Feet : 5 ft(Converted to: 152 cm, 60 Inch) Height, Inches : 8 Inch(Converted to: 0 ft 8 Inch, 20.32 cm) Clinical Height : 172.72 cm [place] Body Weight : 67 kg Ang Regan NON EMP RN - 01/03/2022 21:38 EDT Estimated Weight Type of Weight Measurement Est : [place] Weight, est lb : 260 lb(Converted to: 118 kg) Estimated Clinical Dosing Weight : 118.18 kg Farzana Lomeli RN-PATIENT CARE BEDSIDE NON-EXEMPT - 01/04/2022 14:43 EDT Infectious Disease History Does patient have symptoms of COVID-19? : Unable to obtain or unsure Has the Patient Been Tested for COVID-19 in the last 14 days? : Unable to obtain or unsure Does the Patient state known exposure to a COVID-19 positive case in the last 14 days? : Unable to obtain or unsure Patient Vaccinated for COVID-19 : Fully vaccinated Ang Regan NON EMP RN - 01/03/2022 21:38 EDT Infectious Disease Risk Screening Grid Cough < 2 wks of unknown origin : NO Cough > 2 weeks : NO Blood in Sputum : NO Fever or self-reported Fever : NO Rash of unknown origin : NO Headache : NO Stiff neck : NO Night Sweats : NO Unexplained Weight Loss : NO Diarrhea (3 episode per day) : NO Ang Regan NON EMP RN - 01/03/2022 21:38 EDT Physical contact outside [place] in the last 30 days : No Hospitalized in Foreign Country : No Infectious Disease History : None INF Disease TB Screening Calc : 0 INF Disease Recent Travel Calc : 0 Ang Regan NON EMP RN - 01/03/2022 21:38 EDT Influenza Vaccine Asmt, Adult Previous Vaccines from Immunization Schedule : No qualifying data available. Influenza Immunization, Current Season : Yes Ang Regan NON EMP RN - 01/03/2022 21:38 EDT Pneumococcal Vaccine Previous Vaccines from Immunization Schedule : No qualifying data available. Pneumonia Immunization Received : Unknown Pneumococcal Risk Assessment < Age 65 : N/A- Patient 65 years of age or older Pneumococcal Vaccine Contraindications : No contraindications to pneumococcal vaccine Transplant Workup/Recent Transplant : No Order for Pneumococcal Vaccine : Declined Vaccination Ang Regan NON EMP RN - 01/03/2022 21:38 EDT Order Details Isolation Precautions Order Detail : Standard Precautions Order Detail : N/A Oxygen Order Detail : 1 Lift/Transfer : Moderate assist Room Service : Not Appropriate Patient Needs Meds Crushed/Liquid : No Ang Regan NON EMP RN - 01/03/2022 21:38 EDT Nutrition History Eating Poorly Due to Decreased Appetite : No Unplanned Weight Loss in Past 3-6 Months : No Malnutrition Screening Tool Total(mal) : 0 Malnutrition Screening Tool Risk Level : Patient not at risk Ang Regan NON EMP RN - 01/03/2022 21:38 EDT [place] Suicide Severity Rating Scale (C-SSRS) CSSRS Past Month Wish to be : No CSSRS Past Month Suicidal Thoughts : No CSSRS Lifetime Suicide Behavior : No Suicide Severity Rating Score : 0 Suicide Severity Rating : No Additional Care Required at this time Jorgetoriepauline SHAYE Fry RN - 01/03/2022 21:38 EDT Psychosocial History Currently in Unsafe Situation : No Ang Regan NON EMP RN - 01/03/2022 21:38 EDT Sleep Apnea Risk Assmt BiPAP/CPAP Ordered for Home Use : No Hx of Obstructive Sleep Apnea Diagnosis : Yes Age over 50 Years Old : Yes Gender Male : Yes Ang Regan NON EMP RN - 01/03/2022 21:38 EDT Valuables and Belongings Valuables and Belongings : Clothing Clothing : Common streetwear Clothing Disposition : With patient Jass SHAYE Fry RN - 01/03/2022 21:38 EDT documented in this encounter Plan of Treatment Not on file documented as of this encounter Visit Diagnoses Not on filedocumented in this encounter
--- OUTSIDE RECORDS SUMMARY | 2025-03-31 23:42 | XMS_ITS | Encounter Summary ---
Author Organization [employer] Address [address] [place] [address] Care Team Providers Care Sales Program Coordinator Name Role Phone Unavailable Primary Care Provider Unavailabl e Encounter Details Date Type Department Care Team (Late st Contact Info) Description 01/05/2022 Transcribed Document [facility] [place] [address] [place] [address] ProviderCarlos MD [address], [place] [id number] Social History Tobacco Use Types Packs/Day Years Used Date Smoking Tobacco: Never Assessed Sex and Gender Information Value Date Recorded Sex Assigned at Male 04/15/2022 4:33 PM CDT Legal Sex Male 4:33 PM CDT Gender Identity Male 04/15/2022 4:33 PM CDT Sexual Orientation Not on file documented as of this encounter Miscellaneous Notes * Cerner Conversion Note - Historical ProviderMD - 01/05/2022 12:11 PM CDT Patient: INEZ SHOOK JR Age: 66 Years Sex: Male : 1955 Subjective At the time of nephrology rounds, he is much more clear headed. He denies worsening tremor, confusion or nausea. Review of his laboratory data shows that his urine output has been improving and his serum creatinine is downtrending. He is tolerating his medications. I performed a basic mental status assessment and he is alert and oriented x4. He correctly identifies the [place] president. He does not attempt mental calculations such as subtractions. However, he speaks in full sentences and is appropriate. Vital Signs T: 36.6 ??C TMIN: 36.1 ??C TMAX: 37.7 ??C HR: 68(Monitored) RR: 18 BP: 140/82 SpO2: 96% Oxygen Settings (Last) Oxygen Therapy Mode: Room air (01/05/22 11:39:00) Intake & Output Totals Last 24 Hours (7a-7a) Input Total: 952 mL Output Total: 1350 mL Balance: -398 mL Physical Exam Gen.: Alert, no acute distress, well-nourished, conversant, oriented HEENT: No temporal wasting, no scleral icterus, no conjunctival erythema Neck: Supple no masses Cardiovascular: Normal S1-S2, regular rhythm, normal rate no rub no gallop Pulmonary: Clear to auscultation bilaterally no wheezes or rhonchi, fair air movement Gastrointestinal: Abdomen is soft, nontender, nondistended, no guarding Genitourinary: Resendiz catheter draining pink urine, no clots Musculoskeletal good muscle tone no significant lower extremity edema Neuro/psych: Mood and affect are appropriate, thoughts are fluent, moves all extremities spontaneously, no focal deficits, no tremor/asterixis Skin: No lesions, rashes or ecchymoses, I did not examine the sacral area Assessment and plan: Acute kidney injury, severe-nonoliguric Uremia with uremic encephalopathy Viral bronchitis Diabetes mellitus on insulin Toxic metabolic encephalopathy Acute kidney injury, nonoliguric I am reassured that his renal ultrasound, CPK, lactic acid and electrolytes are all normal. His serum creatinine is slowly downtrending. I asked the nursing staff to continue with maintenance IV fluids and I have challenged the patient have good oral nutrition/good oral fluid intake. I have ordered a serologic work-up to evaluate for autoimmune mediated glomerulonephritis. I am reassured that his mental status is much improved and he is oriented today. I think he may just have had severe volume depletion compounded by possible NSAIDs. I am reassured that his urine output is improving and his electrolytes are stable. We will continue with sodium bicarbonate therapy. -I will defer to hospital medicine regarding strategies to maintain his diabetes control with insulin especially in the setting of his steroid use for his pulmonary infection. We will provide supportive care for his viral bronchitis. He seems to be globally improving. Although he has severely elevated uremic toxin levels, there is no urgent indication for dialysis today. Hopefully, with supportive care, fluids, diabetes control and good nutrition his kidney function will continue to improve. Sebastián Sanchez M.D. Nephrology Partner with , Dr. Paulson and Dr. Rocha Note dictated with Dragon voice recognition system Medications acetaminophen, 650 mg= 2 Tab, Oral, Q6H, PRN acetaminophen-oxyCODONE 325 mg-10 mg oral tablet, 1 Tab, Oral, Q6H, PRN aspirin, 81 mg= 1 Tab, Oral, Daily Ativan, 0.5 mg= 0.25 mL, IntraMuscular, 1-Time, PRN clopidogrel, 75 mg= 1 Tab, Oral, Daily Colace, 100 mg= 1 Cap, Oral, BID Dextrose 50% injection, 25 Gram= 50 mL, IV Push, Q15Min, PRN Dextrose 50% injection, 25 Gram= 50 mL, IV Push, Q15Min, PRN Dextrose 50% injection, 25 Gram= 50 mL, IV Push, Q15Min, PRN Dextrose 50% injection, 12.5 Gram= 25 mL, IV Push, Q15Min, PRN doxycycline, 100 mg= 1 Cap, Oral, BID DuoNeb 0.5 mg-2.5 mg/3 mL inhalation solution, 3 mL, Nebulized Inhalation , RT_Q6H glucagon, 1 mg= 1 mL, IntraMuscular, Q15Min, PRN glucose 4 g oral tablet, chewable, 16 Gram= 4 Tab, Chew, Q15Min, PRN glucose 40% oral gel, 15 Gram= 37.5 mL, Oral, Q15Min, PRN heparin, 5000 Units= 1 mL, SubCutaneous, Q8HInt insulin lispro sliding scale, Scale A:, SubCutaneous, AC and at Bedtime Lipitor, 80 mg= 2 Tab, Oral, Daily Normal Saline 1,000 mL, 1000 mL, IntraVENous predniSONE, 40 mg= 2 Tab, Oral, Daily Pulmicort Respules, 0.5 mg= 2 mL, Nebulized Inhalation , RT_BID senna, 8.6 mg= 1 Tab, Oral, BID sodium bicarbonate 650 mg oral tablet, 1300 mg= 2 Tab, Oral, TID Toprol-XL, 50 mg= 1 Tab, Oral, Daily Vitamin D2, 58676 Units= 1 Cap, Oral, Weekly Lab Results Test Name Test Result Date/Time Sodium Level 136 mmol/L 01/05/2022 08:52 EDT Sodium Level 135 mmol/L (Low) 01/04/2022 13:47 EDT Potassium Level 4.7 mmol/L 01/05/2022 08:52 EDT Potassium Level 4.2 mmol/L 01/04/2022 13:47 EDT Chloride Level 103 mmol/L 01/05/2022 08:52 EDT Chloride Level 103 mmol/L 01/04/2022 13:47 EDT Carbon Dioxide Level 21 mmol/L 01/05/2022 08:52 EDT Carbon Dioxide Level 19 mmol/L (Low) 01/04/2022 13:47 EDT Anion Gap 17 01/05/2022 08:52 EDT Anion Gap 17 01/04/2022 13:47 EDT Glucose Level 159 mg/dL (High) 01/05/2022 08:52 EDT Glucose Level 104 mg/dL 01/04/2022 13:47 EDT Blood Urea Nitrogen 108 mg/dL (Critical) 01/05/2022 08:52 EDT Blood Urea Nitrogen 98 mg/dL (Critical) 01/04/2022 13:47 EDT Creatinine Level 9.90 mg/dL (High) 01/05/2022 08:52 EDT Creatinine Level 10.60 mg/dL (High) 01/04/2022 13:47 EDT eGFR 6 mL/min/1.73m2 (Low) 01/05/2022 08:52 EDT eGFR 6 mL/min/1.73m2 (Low) 01/04/2022 13:47 EDT eGFR NonAfrican 5 mL/min/1.73m2 (Low) 01/05/2022 08:52 EDT eGFR NonAfrican 5 mL/min/1.73m2 (Low) 01/04/2022 13:47 EDT Bun/Creatinine 10.9 01/05/2022 08:52 EDT Bun/Creatinine 9.2 01/04/2022 13:47 EDT Calcium Level 8.7 mg/dL 01/05/2022 08:52 EDT Calcium Level 8.2 mg/dL (Low) 01/04/2022 13:47 EDT Albumin Level 2.6 Gram/dL (Low) 01/05/2022 08:52 EDT Phosphorus 7.9 mg/dL (High) 01/05/2022 08:52 EDT Phosphorus 7.7 mg/dL (High) 01/04/2022 13:47 EDT Device Comment 1 Notified Nurse RBV 01/05/2022 11:10 EDT Device Comment 1 Notified Nurse RBV 01/05/2022 06:02 EDT Device Comment 1 Notified Nurse RBV 01/04/2022 19:40 EDT Device Comment 1 Notified Nurse RBV 01/04/2022 16:19 EDT Glucose POC2 176 mg/dL (High) 01/05/2022 11:10 EDT Glucose POC2 160 mg/dL (High) 01/05/2022 06:02 EDT Glucose POC2 229 mg/dL (High) 01/04/2022 19:40 EDT Glucose POC2 115 mg/dL (High) 01/04/2022 16:19 EDT Lactic Acid Level 1.7 mmol/L 01/04/2022 13:47 EDT Creatinine Urine Random 133 mg/dL 01/05/2022 10:47 EDT Sodium Ur [place] 31 mMole/Liter 01/05/2022 10:47 EDT CK 311 Units/Liter (High) 01/04/2022 13:47 EDT WBC 5.3 K/uL 01/05/2022 08:52 EDT RBC 3.59 Million/uL (Low) 01/05/2022 08:52 EDT Hgb 11.2 g/dL (Low) 01/05/2022 08:52 EDT Hct 32.8 % (Low) 01/05/2022 08:52 EDT MCV 91.4 fL 01/05/2022 08:52 EDT MCH 31.2 pg 01/05/2022 08:52 EDT MCHC 34.1 Gram/dL 01/05/2022 08:52 EDT Platelet Count 228 K/uL 01/05/2022 08:52 EDT MPV 10.3 fL 01/05/2022 08:52 EDT RDW 12.7 % 01/05/2022 08:52 EDT Neut % 82.1 % (High) 01/05/2022 08:52 EDT Neut # 4.33 K/uL 01/05/2022 08:52 EDT Lymph % 11.0 % (Low) 01/05/2022 08:52 EDT Lymph # 0.58 x10(3)/uL (Low) 01/05/2022 08:52 EDT Morton % 5.9 % 01/05/2022 08:52 EDT Morton # 0.31 K/uL 01/05/2022 08:52 EDT Eos % 0.0 % 01/05/2022 08:52 EDT Eos # 0.00 x10(3)/uL 01/05/2022 08:52 EDT Baso % 0.2 % 01/05/2022 08:52 EDT Baso # .01 x10(3)/uL 01/05/2022 08:[address] Oth 0 % 01/05/2022 10:47 EDT Slide Review No 01/05/2022 08:52 EDT IG# 0.04 x10(3)/uL 01/05/2022 08:52 EDT IG% 0.80 % (High) 01/05/2022 08:52 EDT PT 10.6 Second(s) 01/04/2022 13:47 EDT INR 1.0 01/04/2022 13:47 EDT Hep A IgM AB Non Reactive 01/04/2022 13:47 EDT Hep B Surf AG Non Reactive 01/04/2022 13:47 EDT Hep B Core Non Reactive 01/04/2022 13:47 EDT Hep C AB Non Reactive 01/04/2022 13:47 EDT Bordatella pertussis Not Detected 01/04/2022 13:24 EDT Chlamydia pneumoniae Not Detected2 01/04/2022 13:24 EDT Mycoplasma pneumoniae Not Detected 01/04/2022 13:24 EDT Bordatella parapertussis Not Detected 01/04/2022 13:24 EDT Adenovirus Not Detected 01/04/2022 13:24 EDT Coronavirus 229E Not Detected 01/04/2022 13:24 EDT Coronavirus HKU1 Not Detected 01/04/2022 13:24 EDT Coronavirus NL63 Not Detected 01/04/2022 13:24 EDT Coronavirus OC43 Not Detected 01/04/2022 13:24 EDT Human metapneumovirus Not Detected 01/04/2022 13:24 EDT Influenza A Not Detected 01/04/2022 13:24 EDT Influenza A H3 Not Detected 01/04/2022 13:24 EDT Influenza A 2009 H1N1 Not Detected 01/04/2022 13:24 EDT Influenza A H1 Not Detected 01/04/2022 13:24 EDT Influenza B Not Detected 01/04/2022 13:24 EDT Parainfluenza 1 Not Detected 01/04/2022 13:24 EDT Parainfluenza 2 Not Detected 01/04/2022 13:24 EDT Parainfluenza 3 Not Detected 01/04/2022 13:24 EDT Parainfluenza 4 Not Detected 01/04/2022 13:24 EDT Respiratory Syncytial Virus Not Detected 01/04/2022 13:24 EDT Rhinovirus/Enterovirus Detected (Abnormal) 01/04/2022 13:24 EDT SARS-CoV-2 (COVID19 PCR) Not Detected 01/04/2022 13:24 EDT Electronically signed by Jayde Babin Conversion Continuous Pickling Line Pickler Helper Cerner at 02/02/2023 1:51 PM CDT documented in this encounter Plan of Treatment Not on file documented as of this encounter Visit Diagnoses Not on filedocumented in this encounter
--- OUTSIDE RECORDS SUMMARY | 2025-03-31 23:42 | XMS_ITS | Encounter Summary ---
Author Organization [employer] Address [address] [facility] [address] Care Team Providers Care Cnc Maintenance Mechanic Name Role Phone Unavailable Primary Care Provider Unavailabl e Encounter Details Date Type Department Care Team (Late st Contact Info) Description 01/06/2022 Transcribed Document [facility] [place] [address] [place] [address] ProviderCarlos MD [address] [place] [address] Social History Tobacco Use Types Packs/Day Years Used Date Smoking Tobacco: Never Assessed Sex and Gender Information Value Date Recorded Sex Assigned at Male 04/15/2022 4:33 PM CDT Legal Sex Male 4:33 PM CDT Gender Identity Male 04/15/2022 4:33 PM CDT Sexual Orientation Not on file documented as of this encounter Miscellaneous Notes * Cerner Conversion Note - Historical ProviderMD - 01/06/2022 2:[address] Light Wirer Details Entered On: 01/06/2022 2:10 EDT Performed On: 01/06/2022 2:00 EDT by EMMA DIEGO LPN Order Details Transport Mode Order Detail : Wheelchair Isolation Precautions Order Detail : Standard Precautions Order Detail : N/A IV Order Detail : 1 Oxygen Order Detail : 0 Nurse Collect Order Detail : 0 Lift/Transfer : Minimal Central Line Order Detail : No Room Service : Not Appropriate Arterial Line : No Patient Needs Meds Crushed/Liquid : No EMMA DIEGO LPN - 01/06/2022 2:10 EDT documented in this encounter Plan of Treatment Not on file documented as of this encounter Visit Diagnoses Not on filedocumented in this encounter
--- OUTSIDE RECORDS SUMMARY | 2025-03-31 23:42 | XMS_ITS | Encounter Summary ---
Author Organization [employer] i[employer] Address [address] [place] [address] Care Team Providers Care Tin Worker Name Role Phone Unavailable Primary Care Provider Unavailabl e Encounter Details Date Type Department Care Team (Late st Contact Info) Description 01/04/2022 Transcribed Document [facility] [place] Family Medicine [address] [place] [address] ProviderCarlos MD [address] [place], [place] [id number] Social History Tobacco Use Types Packs/Day Years Used Date Smoking Tobacco: Never Assessed Sex and Gender Information Value Date Recorded Sex Assigned at Male 04/15/2022 4:33 PM CDT Legal Sex Male 4:33 PM CDT Gender Identity Male 04/15/2022 4:33 PM CDT Sexual Orientation Not on file documented as of this encounter Miscellaneous Notes * Cerner Conversion Note - Historical ProviderMD - 01/04/2022 1:20 PM CDT Patient: INEZ SHOOK JR Age: 66 Years Sex: Male : 1955 Chief Complaint Confusion, acute kidney injury Reason for Consultation Confusion, acute kidney injury History of Present Illness Mr. Shook is a 66-year-old man with a past medical history significant for diabetes and coronary artery disease who was transferred to our facility for evaluation of altered mental status and acute kidney injury. He is a very distractible and poor historian. He has slowed mentation and poor recall. He cannot identify his hometown. He does not know his medications. He believes that he takes NSAIDs with ibuprofen and/or naproxen but he is not certain. He cannot tell me how long he has had diabetes. No family is at the bedside at the time of my interview. He has had a renal ultrasound which was unremarkable. He also has severely abnormal lab work with a serum creatinine as high as 11.6 mg/dL at presentation at our facility. His outpatient medication regimen includes CONCEPCION inhibitor and loop diuretics. He denies GI fluid losses with vomiting or diarrhea. He complains that he is simply very tired and sleepy. He denies focal pain, fever, sweats, chills. He denies worsening shortness of breath. Review of Systems He is distractible and its difficult to collect a comprehensive review of systems due to his altered mental status Vital Signs T: 37.9 ??C TMIN: 37.2 ??C TMAX: 37.9 ??C HR: 86(Monitored) RR: 18 BP: 141/90 SpO2: 96% HT: 172.72 cm Oxygen Settings (Last) Oxygen Therapy Mode: Room air (01/04/22 11:13:00) Physical Exam Gen.: Alert, no acute distress, obese, confused, positive tremor HEENT: No temporal wasting, no scleral icterus, no conjunctival erythema Neck: Supple no masses Cardiovascular: Normal S1-S2, regular rhythm, normal rate no rub no gallop Pulmonary: Clear to auscultation bilaterally no wheezes or rhonchi, fair air movement Gastrointestinal: Abdomen is soft, nontender, nondistended, no guarding Genitourinary: No CVA tenderness to percussion, Resendiz catheter draining pink urine Musculoskeletal good muscle tone no significant lower extremity edema Neuro/psych: Awake but sleepy, positive tremor, confused Skin: No lesions, rashes or ecchymoses, I did not examine the sacral area Assessment/Plan Acute kidney injury-severe Uremia with uremic encephalopathy Diabetes mellitus Hypertension History of coronary artery disease Obesity Altered mental status/toxic metabolic encephalopathy Acute kidney injury: -I am reassured that his renal ultrasound was unremarkable and there is a good amount of urine in his Resendiz catheter collection bag. -Is plausible that he could have reduced renal perfusion in the setting of his loop diuretics and CONCEPCION inhibitor compounded by decreased oral nutrition/decreased oral fluid intake. At the time of my evaluation, his initial IV fluid bolus of lactated Ringer's has completed and have asked the nursing staff to restart his fluids with normal saline. I have also challenged the patient have good oral fluid intake. -We are avoiding his CONCEPCION inhibitor, diuretics and Metformin. I will order a lactic acid level. -He has a history of coronary artery disease and he may have a component of cardiorenal syndrome. He is undergoing an assessment for LVEF/systolic congestive heart failure. -His diabetes is well controlled and he does not have hyperglycemia. Currently, he is on Solu-Medrol in the setting of his history of COPD. He will need good glycemic control in order to avoid hyperglycemia, glucosuria and osmotic diuresis. He should avoid Metformin in the setting of his reduced kidney function. -We will check his laboratory data this afternoon to assess for improvement in his clearance and to evaluate for metabolic indications for dialysis. -He has asterixis/tremor and confusion all consistent with uremic encephalopathy. I have discontinued his gabapentin since this can also be a factor with altered mental status. -I have increased his sodium bicarbonate dosing to 1300 mg p.o. 3 times daily. -I am reassured that he does not have hyperkalemia. -Although he has uremic encephalopathy I would like to avoid dialysis today. Hopefully with his improving urine output, improving volume status, avoidance of CONCEPCION inhibitor, avoidance of diuretics and stable blood pressure his kidney function can improve soon. It is reassuring that his renal ultrasound was unremarkable. We will follow closely with you. Sebastián Sanchez M.D. Nephrology Partner with , Dr. Paulson and Dr. Rocha Note dictated with [employer] recognition system Problem List/Past Medical History Ongoing Back pain COPD (chronic obstructive pulmonary disease) Coronary disease Diabetes GERD (gastroesophageal reflux disease) History of obstructive sleep apnea Procedure/Surgical History DIAGNOSTIC COLONOSCOPY, stent placement. Medications Inpatient acetaminophen, 650 mg= 2 Tab, Oral, Q6H, PRN acetaminophen-oxyCODONE 325 mg-10 mg oral tablet, 1 Tab, Oral, Q6H, PRN aspirin, 81 mg= 1 Tab, Oral, Daily clopidogrel, 75 mg= 1 Tab, Oral, Daily Dextrose 50% injection, 25 Gram= 50 mL, IV Push, Q15Min, PRN Dextrose 50% injection, 25 Gram= 50 mL, IV Push, Q15Min, PRN Dextrose 50% injection, 25 Gram= 50 mL, IV Push, Q15Min, PRN Dextrose 50% injection, 12.5 Gram= 25 mL, IV Push, Q15Min, PRN doxycycline, 100 mg= 1 Cap, Oral, BID Dulera 200 mcg-5 mcg/inh inhalation aerosol, 2 Puff, Inhalation, RT_BID DuoNeb 0.5 mg-2.5 mg/3 mL inhalation solution, 3 mL, Nebulized Inhalation , RT_Q6H glucagon, 1 mg= 1 mL, IntraMuscular, Q15Min, PRN glucose 4 g oral tablet, chewable, 16 Gram= 4 Tab, Chew, Q15Min, PRN glucose 40% oral gel, 15 Gram= 37.5 mL, Oral, Q15Min, PRN heparin, 5000 Units= 1 mL, SubCutaneous, Q8HInt hydrALAZINE, 10 mg= 0.5 mL, IV Push, Q6H, PRN insulin lispro sliding scale, Scale A:, SubCutaneous, AC and at Bedtime labetalol, 10 mg= 2 mL, IV Push, Q6H, PRN Lipitor, 80 mg= 2 Tab, Oral, Daily morphine, 2 mg= 1 mL, IV Push, Q4H, PRN ondansetron, 4 mg= 2 mL, IV Push, Q6H, PRN sodium bicarbonate 650 mg oral tablet, 1300 mg= 2 Tab, Oral, TID SOLU-Medrol, 40 mg, IV Push, Q12H Toprol-XL, 50 mg= 1 Tab, Oral, Daily Vitamin D2, 54547 Units= 1 Cap, Oral, Weekly Home acetaminophen-oxyCODONE 325 mg-10 mg oral tablet, 1 Tab, Oral, Q6H, PRN aspirin 81 mg oral tablet, chewable, 81 mg= 1 Tab, Oral, Daily atorvastatin 80 mg oral tablet, Oral, Daily Breo Ellipta 100 mcg-25 mcg inhalation powder, 1 Puff, Inhalation, Daily clopidogrel 75 mg oral tablet, Oral, Daily furosemide 40 mg oral tablet, Oral, BID gabapentin 600 mg oral tablet, 600 mg= 1 Tab, Oral, TID glipiZIDE 10 mg oral tablet, Oral, Daily lisinopril 20 mg oral tablet, 20 mg= 1 Tab, Oral, BID metFORMIN 500 mg oral tablet, 500 mg= 1 Tab, Oral, BID metoprolol succinate 50 mg oral capsule, extended release, Oral, Daily Vitamin D3 25 mcg (1000 intl units) oral tablet, 25 mcg= 1 Tab, Oral, Daily Vitamin D3 50,000 units oral capsule, 1250 mcg= 1 Cap, Oral, Weekly Allergies Imdur Social History , lives in [facility], former smoker, no active illegal drug use or alcohol use Family History He is uncertain of his family history. He is too confused to give a reliable family history regarding kidney disease Diagnostic Results Renal ultrasound FINDINGS: Limited images of the liver parenchyma demonstrate normal echogenicity . The right kidney measures 12 cm in length. It is normal echogenicity . There is no hydronephrosis . The left kidney measures 13 cm in length. It is normal echogenicity . There is no hydronephrosis . IMPRESSION: Normal renal ultrasound . Lab Results Test Name Test Result Date/Time Sodium Level 138 mmol/L 01/04/2022 06:38 EDT Sodium Level 136 mmol/L 01/03/2022 21:48 EDT Potassium Level 4.7 mmol/L 01/04/2022 06:38 EDT Potassium Level 4.9 mmol/L 01/03/2022 21:48 EDT Chloride Level 106 mmol/L 01/04/2022 06:38 EDT Chloride Level 106 mmol/L 01/03/2022 21:48 EDT Carbon Dioxide Level 15 mmol/L (Low) 01/04/2022 06:38 EDT Carbon Dioxide Level 18 mmol/L (Low) 01/03/2022 21:48 EDT Anion Gap 22 (High) 01/04/2022 06:38 EDT Anion Gap 17 01/03/2022 21:48 EDT Glucose Level 94 mg/dL 01/04/2022 06:38 EDT Glucose Level 85 mg/dL 01/03/2022 21:48 EDT Blood Urea Nitrogen 97 mg/dL (Critical) 01/04/2022 06:38 EDT Blood Urea Nitrogen 95 mg/dL (Critical) 01/03/2022 21:48 EDT Creatinine Level 11.00 mg/dL (High) 01/04/2022 06:38 EDT Creatinine Level 11.60 mg/dL (High) 01/03/2022 21:48 EDT eGFR 6 mL/min/1.73m2 (Low) 01/04/2022 06:38 EDT eGFR 5 mL/min/1.73m2 (Low) 01/03/2022 21:48 EDT eGFR NonAfrican 5 mL/min/1.73m2 (Low) 01/04/2022 06:38 EDT eGFR NonAfrican 4 mL/min/1.73m2 (Low) 01/03/2022 21:48 EDT Bun/Creatinine 8.8 01/04/2022 06:38 EDT Bun/Creatinine 8.2 01/03/2022 21:48 EDT Calcium Level 8.1 mg/dL (Low) 01/04/2022 06:38 EDT Calcium Level 8.0 mg/dL (Low) 01/03/2022 21:48 EDT Protein Total 6.7 Gram/dL 01/04/2022 06:38 EDT Protein Total 7.3 Gram/dL 01/03/2022 21:48 EDT Albumin Level 2.8 Gram/dL (Low) 01/04/2022 06:38 EDT Albumin Level 2.9 Gram/dL (Low) 01/03/2022 21:48 EDT Globulin 3.9 Gram/dL 01/04/2022 06:38 EDT Globulin 4.4 Gram/dL 01/03/2022 21:48 EDT A/G Ratio 0.7 (Low) 01/04/2022 06:38 EDT A/G Ratio 0.7 (Low) 01/03/2022 21:48 EDT Bilirubin Total 0.4 mg/dL 01/04/2022 06:38 EDT Bilirubin Total 0.4 mg/dL 01/03/2022 21:48 EDT Alk Phos 51 Units/Liter 01/04/2022 06:38 EDT Alk Phos 49 Units/Liter 01/03/2022 21:48 EDT AST 25 Units/Liter 01/04/2022 06:38 EDT AST 25 Units/Liter 01/03/2022 21:48 EDT ALT 14 Units/Liter (Low) 01/04/2022 06:38 EDT ALT 16 Units/Liter 01/03/2022 21:48 EDT Magnesium Level 1.9 mg/dL 01/04/2022 06:38 EDT Device Comment 1 Notified Nurse RBV 01/04/2022 11:12 EDT Device Comment 1 Protocols Followed 01/04/2022 06:28 EDT Device Comment 1 Notified Nurse RBV 01/04/2022 05:47 EDT Glucose POC2 100 mg/dL 01/04/2022 11:12 EDT Glucose POC2 80 mg/dL 01/04/2022 06:28 EDT Glucose POC2 67 mg/dL (Low) 01/04/2022 05:47 EDT Hgb A1C 6.7 % 01/04/2022 06:38 EDT eAVG Glucose 146 mg/dL 01/04/2022 06:38 EDT WBC 6.7 K/uL 01/04/2022 06:38 EDT WBC 8.2 K/uL 01/03/2022 21:48 EDT RBC 3.75 Million/uL (Low) 01/04/2022 06:38 EDT RBC 3.69 Million/uL (Low) 01/03/2022 21:48 EDT Hgb 11.4 g/dL (Low) 01/04/2022 06:38 EDT Hgb 11.3 g/dL (Low) 01/03/2022 21:48 EDT Hct 36.4 % (Low) 01/04/2022 06:38 EDT Hct 34.6 % (Low) 01/03/2022 21:48 EDT MCV 97.1 fL (High) 01/04/2022 06:38 EDT MCV 93.8 fL 01/03/2022 21:48 EDT MCH 30.4 pg 01/04/2022 06:38 EDT MCH 30.6 pg 01/03/2022 21:48 EDT MCHC 31.3 Gram/dL (Low) 01/04/2022 06:38 EDT MCHC 32.7 Gram/dL 01/03/2022 21:48 EDT Platelet Count 206 K/uL 01/04/2022 06:38 EDT Platelet Count 207 K/uL 01/03/2022 21:48 EDT MPV 9.9 fL 01/04/2022 06:38 EDT MPV 9.6 fL 01/03/2022 21:48 EDT RDW 13.0 % 01/04/2022 06:38 EDT RDW 13.1 % 01/03/2022 21:48 EDT Neut % 72.6 % (High) 01/04/2022 06:38 EDT Neut % 78.6 % (High) 01/03/2022 21:48 EDT Neut # 4.88 K/uL 01/04/2022 06:38 EDT Neut # 6.48 K/uL (High) 01/03/2022 21:48 EDT Lymph % 12.0 % (Low) 01/04/2022 06:38 EDT Lymph % 8.7 % (Low) 01/03/2022 21:48 EDT Lymph # 0.81 x10(3)/uL (Low) 01/04/2022 06:38 EDT Lymph # 0.72 x10(3)/uL (Low) 01/03/2022 21:48 EDT [place] % 11.9 % (High) 01/04/2022 06:38 EDT [place] % 8.9 % 01/03/2022 21:48 EDT [place] # 0.80 K/uL 01/04/2022 06:38 EDT [place] # 0.73 K/uL 01/03/2022 21:48 EDT Eos % 2.2 % 01/04/2022 06:38 EDT Eos % 2.8 % 01/03/2022 21:48 EDT Eos # 0.15 x10(3)/uL 01/04/2022 06:38 EDT Eos # 0.23 x10(3)/uL 01/03/2022 21:48 EDT Baso % 0.7 % 01/04/2022 06:38 EDT Baso % 0.5 % 01/03/2022 21:48 EDT Baso # 0.05 x10(3)/uL 01/04/2022 06:38 EDT Baso # 0.04 x10(3)/uL 01/03/2022 21:48 EDT Slide Review No 01/04/2022 06:38 EDT Slide Review No 01/03/2022 21:48 EDT IG# 0.04 x10(3)/uL 01/04/2022 06:38 EDT IG# 0.04 x10(3)/uL 01/03/2022 21:48 EDT IG% 0.60 % 01/04/2022 06:38 EDT IG% 0.50 % 01/03/2022 21:48 EDT Electronically signed by Talya [facility] Conversion Backing In Machine Tender Cerner at 02/02/2023 1:41 PM CDT documented in this encounter Plan of Treatment Not on file documented as of this encounter Visit Diagnoses Not on filedocumented in this encounter
--- OUTSIDE RECORDS SUMMARY | 2025-03-31 23:42 | XMS_ITS | Encounter Summary ---
Author Organization [employer] Address [address] [place] [address] Care Team Providers Care Nursing Home Manager Name Role Phone Unavailable Primary Care Provider Unavailabl e Encounter Details Date Type Department Care Team (Late st Contact Info) Description 01/06/2022 Transcribed Document [facility] [place] [address] [place] [address] ProviderCarlos MD [address] [place] [address] Social History Tobacco Use Types Packs/Day Years Used Date Smoking Tobacco: Never Assessed Sex and Gender Information Value Date Recorded Sex Assigned at Male 04/15/2022 4:33 PM CDT Legal Sex Male 4:33 PM CDT Gender Identity Male 04/15/2022 4:33 PM CDT Sexual Orientation Not on file documented as of this encounter Miscellaneous Notes * [employer]ner Conversion Note - Historical ProviderMD - 01/06/2022 1:33 PM CDT Meds to Bed Enrollment Entered On: 01/06/2022 13:33 EDT Performed On: 01/06/2022 13:33 EDT by Donaldo Darden Tv News Director Cert Lead Meds to Bed Enrollment Patient Enrollment Decision: : Yes/enroll in meds to bed program Donaldo Darden Tv News Director Cert Lead - 01/06/2022 13:33 EDT documented in this encounter Plan of Treatment Not on file documented as of this encounter Visit Diagnoses Not on filedocumented in this encounter
--- OUTSIDE RECORDS SUMMARY | 2025-03-31 23:42 | XMS_ITS | Encounter Summary ---
Author Organization [employer] Address [address] [place] [address] Care Team Providers Care Sap Bi Architect Name Role Phone Unavailable Primary Care Provider Unavailabl e Encounter Details Date Type Department Care Team (Late st Contact Info) Description 01/05/2022 Transcribed Document [facility] [place] [address] [place] [address] ProviderCarlos MD [facility] [place], [place] [id number] Social History Tobacco Use Types Packs/Day Years Used Date Smoking Tobacco: Never Assessed Sex and Gender Information Value Date Recorded Sex Assigned at Male 04/15/2022 4:33 PM CDT Legal Sex Male 4:33 PM CDT Gender Identity Male 04/15/2022 4:33 PM CDT Sexual Orientation Not on file documented as of this encounter Miscellaneous Notes * [employer]ner Conversion Note - Historical ProviderMD - 01/05/2022 12:40 AM CDT Event Note Entered On: 01/05/2022 0:47 EDT Performed On: 01/05/2022 0:40 EDT by Monica Callahan RN Event Note Event Date/Time : 01/04/2022 19:00 EDT Event Location : Assigned room Event Details : Nursing assessment additional narrative Description of Event : DELIVERY ARCHITECT approached RN at shift change stating that patient was walking around his room, attempted to pull out his catheter, and had pulled out his IV. RN entered the room to find patient standing by the bed, visibly irritated stating, I'm getting the fuck out of this place where are my clothes? RN persuaded patient to sit in the bed to phone his girlfriend. Patient was able to be redirected and placed back in the bed with Monica Alarm and Fall Socks in place. A new IV was placed and patient left comfortable with call light. At approximately 0015, DELIVERY ARCHITECT approached RN stating that patient had again started to get irritable and want to leave. Patient had pulled out his new IV. Patient was moved closer to the nurses station and MD was consulted. MD stated to D/C IV until dayshift and give a 1 Time dose of 0.5mg Ativan IM. RN will continue to monitor patient. Monica Callahan V RN - 01/05/2022 0:40 EDT documented in this encounter Plan of Treatment Not on file documented as of this encounter Visit Diagnoses Not on filedocumented in this encounter
--- OUTSIDE RECORDS SUMMARY | 2025-03-31 23:42 | XMS_ITS | Encounter Summary ---
Author Organization [employer] Address [address] [place] [address] Care Team Providers Care Criminal Investigator Name Role Phone Unavailable Primary Care Provider Unavailabl e Encounter Details Date Type Department Care Team (Late st Contact Info) Description 01/03/2022 Transcribed Document [facility] [place] [address] [place] [address] ProviderCarlos MD [address] [place] [address] Social History Tobacco Use Types Packs/Day Years Used Date Smoking Tobacco: Never Assessed Sex and Gender Information Value Date Recorded Sex Assigned at Male 04/15/2022 4:33 PM CDT Legal Sex Male 4:33 PM CDT Gender Identity Male 04/15/2022 4:33 PM CDT Sexual Orientation Not on file documented as of this encounter Miscellaneous Notes * [employer]ner Conversion Note - Historical ProviderMD - 01/03/2022 11:39 PM CDT Education-Diabetes Topics Entered On: 01/05/2022 0:19 EDT Performed On: 01/03/2022 23:39 EDT by Monica Callahan V RN Teaching/Learning Assessment Barriers To Learning : Acuity of Illness, Cognitive deficit Monica Callahan V RN - 01/05/2022 0:19 EDT Education, Diabetes Diabetes Education Grid Symptom Identification & Action Plan *Q : Needs reinforcement Acute Complications : Needs reinforcement Blood Glucose Monitoring : Needs reinforcement Chronic Complications : Needs reinforcement Community Resources : Needs reinforcement Compliance Strategies : Needs reinforcement Coping/Care Regimen : Needs reinforcement Cost Issues : Needs reinforcement Disease Process : Needs reinforcement DKA Signs and Symptoms : Needs reinforcement Follow-up Care : Needs reinforcement Foot Care : Needs reinforcement Gestational Management : Needs reinforcement Infection Control : Needs reinforcement Insulin Administration : Needs reinforcement Insulin Types/Onset/Duration : Needs reinforcement Medical Alert Band : Needs reinforcement Medication Storage : Needs reinforcement Medication Dosage/Route : Needs reinforcement Medication Generic/Brand : Needs reinforcement Medication Precautions : Needs reinforcement Medication Special Administration : Needs reinforcement Medication, Preadministration : Needs reinforcement Monitoring Results : Needs reinforcement Nutritional Management/Exercise : Needs reinforcement Oral Agents : Needs reinforcement Physical Activity : Needs reinforcement Post-Contrast Instructions : Needs reinforcement Preconception Care : Needs reinforcement Management : Needs reinforcement Psychosocial Adjustment : Needs reinforcement Sexual Dysfunction : Needs reinforcement Treatment Plan/Options : Needs reinforcement Treatment/Management Goal : Needs reinforcement Urine Ketone Monitoring : Needs reinforcement Weight Loss : Needs reinforcement Diabetes, Other : Needs reinforcement Monica Callahan RN - 01/05/2022 0:19 EDT documented in this encounter Plan of Treatment Not on file documented as of this encounter Visit Diagnoses Not on filedocumented in this encounter
--- OUTSIDE RECORDS SUMMARY | 2025-03-31 23:42 | XMS_ITS | Encounter Summary ---
Author Organization [employer] Address [address] [place] [address] Care Team Providers Care Plush Weaver Name Role Phone Unavailable Primary Care Provider Unavailabl e Encounter Details Date Type Department Care Team (Late st Contact Info) Description 01/07/2022 Transcribed Document [facility] [place] Family Medicine [address] [place] [address] ProviderCarlos MD [address] [place] [address] Social History Tobacco Use Types Packs/Day Years Used Date Smoking Tobacco: Never Assessed Sex and Gender Information Value Date Recorded Sex Assigned at Male 04/15/2022 4:33 PM CDT Legal Sex Male 4:33 PM CDT Gender Identity Male 04/15/2022 4:33 PM CDT Sexual Orientation Not on file documented as of this encounter Miscellaneous Notes * Cerner Conversion Note - Historical Provider, - 01/07/2022 12:52 PM CDT Patient: INEZ SHOOK JR Age: 66 years Sex: Male : 1955 Associated Diagnoses: None Author: ANA TORRES, Subjective pt seen by me this morning, he denies cp or sob, no abd pain or n/v. admits to some confusion but it is improving. Objective Intake and Output Intake & Output Totals Last 24 Hours (7a-7a) Intake (0 Events) No intake events found in the last 24 hours. Output (1 Events) Schmid Catheter (1000 mL) Input Total: 0 mL Output Total: 1000 mL Balance: -1000 mL VS/Measurements Vitals Signs (last 24 hrs) Last Charted Minimum Maximum Temp 98.1 (JAN 07 11:04) 97.6 (JAN 07 06:04) 98.1 (JAN 07 11:04) Apical HR 64 (JAN 07 11:04) 64 (JAN 07 11:01) 64 (JAN 07 11:01) Mon HR 65 (JAN 07:20) 57 (JAN 07 06:04) 75 (JAN 06 21:00) Resp Rate 18 (JAN 07:20) 14 (JAN 07 06:00) 18 (JAN 06:00) SBP 130 (JAN 07 11:04) 124 (JAN 07 03:12) 134 (JAN 07 06:04) DBP 71 (JAN 07 11:04) 63 (JAN 07 03:12) 81 (JAN 07 06:04) MAP 85 (JAN 07 11:04) 80 (JAN 07 03:12) 97 (JAN 07 06:04) SpO2 96 (JAN 07:20) 94 (JAN 06:01) 98 (JAN 06 21:00) General: No acute distress. Eye: Pupils are equal, round and reactive to light, Normal conjunctiva. HENT: Normocephalic, Normal hearing. Respiratory: on room air, no wheezing or rhonchi. Cardiovascular: Normal rate, Regular rhythm, No murmur, No edema. Gastrointestinal: Soft, Non-tender, Non-distended, Normal bowel sounds. Genitourinary: schmid in place draining clear urine. Integumentary: Warm, Dry. Neurologic: Alert, knows its december 2021 and that he is at [facility], knows correct age and . no tremor. Psychiatric: Cooperative, Appropriate mood & affect. Results Review General results Interpretation: JAN 07 06:08 Labs (Last four charted values) WBC 8.5 (JAN 06) 5.3 (JAN 05) 6.7 (JAN 04) 8.2 (JAN 03) HB L 9.8 (JAN 06) L 11.2 (JAN 05) L 11.4 (JAN 04) L 11.3 (JAN 03) HCT L 29.4 (JAN 06) L 32.8 (JAN 05) L 36.4 (JAN 04) L 34.6 (JAN 03) Plt 217 (JAN 06) 228 (JAN 05) 206 (JAN 04) 207 (JAN 03) Na 138 (JAN 07) L 134 (JAN 06) 136 (JAN 05) L 135 (JAN 04) K 4.3 (JAN 07) 4.0 (JAN 06) 4.7 (JAN 05) 4.2 (JAN 04) Cl 106 (JAN 07) 103 (JAN 06) 103 (JAN 05) 103 (JAN 04) CO2 22 (JAN 07) L 19 (JAN 06) 21 (JAN 05) L 19 (JAN 04) BUN C 111 (JAN 07) C 109 (JAN 06) C 108 (JAN 05) C 98 (JAN 04) Cr H 7.00 (JAN 07) H 8.60 (JAN 06) H 9.90 (JAN 05) H 10.60 (JAN 04) Glu R H 131 (JAN 07) H 161 (JAN 06) H 159 (JAN 05) 104 (JAN 04) Ca L 8.2 (JAN 07) L 8.1 (JAN 06) 8.7 (JAN 05) L 8.2 (JAN 04) Lactic 1.7 (JAN 04) PT 10.6 (JAN 04) INR 1.0 (JAN 04) AST 25 (JAN 04) 25 (JAN 03) ALT L 14 (JAN 04) 16 (JAN 03) ALK P 51 (JAN 04) 49 (JAN 03) T Bili 0.4 (JAN 04) 0.4 (JAN 03) PTN 6.7 (JAN 04) 7.3 (JAN 03) ALB L 2.5 (JAN 07) L 2.5 (JAN 06) L 2.6 (JAN 05) L 2.8 (JAN 04) No Radiology Results Found Impression and Plan ZAHRA with metabolic acidosis, improving. - baseline renal function, per ER note, with creatinine of 0.9 on 11/08. - added po bicarb on 01/04 -renal us nml - nephrology consult appreciated - creatinine slowly improving with iv fluids. - hold lasix/lisinopril - dc schmid and pvr today. - ER CT Abd showed no hydronephrosis [...] ago. continue ivf and monitor renal function. 01/07: creatinine improving. mentation better today. netta schmid and do PVR today. d/w dr starks, possible dc tomorrow if renal function continues to improve. time spent: 28 min discharge goals: monitor renal function anticipated discharge disposition: home hopefully tomorrow if creatinine < 6.0 Ana Tabor Hospitalist pager- [phone] documented in this encounter Plan of Treatment Not on file documented as of this encounter Visit Diagnoses Not on filedocumented in this encounter
--- OUTSIDE RECORDS SUMMARY | 2025-03-31 23:42 | XMS_ITS | Encounter Summary ---
Author Organization [employer] Address [address] [place] [address] Care Team Providers Care Animal Care Taker Name Role Phone Unavailable Primary Care Provider Unavailabl e Encounter Details Date Type Department Care Team (Late st Contact Info) Description 01/03/2022 Transcribed Document [facility] [place] [address] [place] [address] ProviderCarlos MD [facility] [place], [place] [address] Social History Tobacco Use Types Packs/Day Years Used Date Smoking Tobacco: Never Assessed Sex and Gender Information Value Date Recorded Sex Assigned at Male 04/15/2022 4:33 PM CDT Legal Sex Male 4:33 PM CDT Gender Identity Male 04/15/2022 4:33 PM CDT Sexual Orientation Not on file documented as of this encounter Miscellaneous Notes * Cerner Conversion Note - Historical ProviderMD - 01/03/2022 11:48 PM CDT Patient: INEZ MALDONADO JR Age: 66 Years Sex: Male : 1955 Chief Complaint weakness Primary Care Provider SAMY, UNKNOWN History of Present Illness 66 yo m w/ h/o dm2, htn chf with unknown lvef presents to [facility] from outside facility where he allegedly presented c/o generalized weakness. he is confused, oriented only to self, has no idea where he is or why, has no physical complaints at this time. he arrives with no documentation other than labs and allergies. unknown onset, inciting event, exacerbating or relieving factors or severity of his initial complaints. in the ed his cr was 11, bun 85. the erst of his labs are grossly unrevealing. will admit for acute renal failure and uremic encephalopathy. Review of Systems A 14 point review of systems was obtained and is noncontributory except as noted above. All past medical, social and family history reviewed. Social & Psychosocial Habits No Data Available Vital Signs T: 37.3 ??C HR: 78(Monitored) RR: 16 BP: 122/81 SpO2: 94% HT: 172.72 cm Oxygen Settings (Last) Oxygen Therapy Mode: Room air (01/03/22 20:53:00) Physical Exam Based on new provisions and guidance offered in setting of COVID 19 outbreak and in order to preserve personal protective equipment in accordance with the flexibilities announced by [facility] limited examination is performed. General: Well appearing, not diaphoretic, no acute distress Head: Normocephalic, atraumatic Eyes: No ocular discharge, no scleral injection, no icterus Ears: Normal external auricles Nose: No rhinorrhea, no epistaxis Throat: Not examined, no difficulty swallowing Pulm: No apparent respiratory distress Cardio: Normal rate, regular rhythm, no peripheral edema GI: non-distended Neuro: Alert but disoriented, cn2-12 grossly intact, strength 5/5 bilaterally. Psych: Cooperative Skin: No jaundice Assessment/Plan - acute renal failure, pt confused unsure if h/o renal disease - stop lisinopril, lasix - ivf - nephrology consult, urine studies, suspect pre-renal andrei - guru, cpap if pt tolerates - Continue to monitor electrolytes and replete as appropriate - Pt high risk for vte, UFH for vte ppx. - Continue medications for chronic problems - Pt will require inpatient admission for >48 hrs for work up and stabilization of their condition - NSOC: Remains admitted I have personally reviewed pertinent laboratory, ekg and imaging results, as well as documentation in the patient's emr. Laboratory and imaging orders per the above plan have been addressed, see orders below. Home medications have been reviewed. Patient's case, assessment and plan have been discussed on this date with patient and RN. Code Status Start: 01/03/22 21:25:00 EDT, Full Code, Continuous Order 1. Acute renal failure 2. HTN (hypertension) 3. CHF with unknown LVEF 4. COPD (chronic obstructive pulmonary disease) 5. Diabetes mellitus type 2, noninsulin dependent 6. History of obstructive sleep apnea 7. Uremic encephalopathy Orders: acetaminophen, 650 mg, Oral, Tab, Q6H, PRN for Pain (Mild 1-3), Routine, Start 01/03/22 21:55:00 EDT, 01/03/22 21:55:00 EDT acetaminophen-oxyCODONE, 1 Tab, Oral, Tab, Q6H, PRN for Pain (Moderate 4-6), Routine, Start 01/04/22 0:06:00 EDT aspirin, 81 mg, Oral, Chew Tab, Daily, Routine, Start 01/04/22 9:00:00 EDT, 01/04/22 0:06:00 EDT cholecalciferol, 1,250 mcg, Oral, Cap, Weekly, Routine, Start 01/04/22 1:00:00 EDT, 01/04/22 0:06:00 EDT cholecalciferol, 25 mcg, Oral, Tab, Daily, Routine, Start 01/04/22 9:00:00 EDT, 01/04/22 0:06:00 EDT formoterol-mometasone, 2 Puff, Inhalation, Inh, BID, Routine, Start 01/04/22 0:06:00 EDT gabapentin, 600 mg, Oral, Tab, TID, Routine, Start 01/04/22 0:06:00 EDT, 01/04/22 0:06:00 EDT glucagon, 1 mg, IntraMuscular, Inj, Q15Min, PRN for Other (See Comment), Routine, Start 01/04/22 0:09:00 EDT, 01/04/22 0:09:00 EDT glucose, 15 Gram 37.5 mL, Oral, Gel, Q15Min, PRN for Other (See Comment), Routine, Start 01/04/22 0:09:00 EDT, 01/04/22 0:09:00 EDT glucose, 25 Gram, IV Push, Inj, Q15Min, PRN for Other (See Comment), Routine, Start 01/04/22 0:09:00 EDT, 01/04/22 0:09:00 EDT glucose, 25 Gram, IV Push, Inj, Q15Min, PRN for Other (See Comment), Routine, Start 01/04/22 0:09:00 EDT, 01/04/22 0:09:00 EDT glucose, 25 Gram, IV Push, Inj, Q15Min, PRN for Other (See Comment), Routine, Start 01/04/22 0:09:00 EDT, 01/04/22 0:09:00 EDT glucose, 16 Gram, 4 Tab, Chew, Tab, Q15Min, PRN for Other (See Comment), Routine, Start 01/04/22 0:09:00 EDT glucose, 12.5 Gram, IV Push, Inj, Q15Min, PRN for Other (See Comment), Routine, Start 01/04/22 0:09:00 EDT, 01/04/22 0:09:00 EDT heparin, 5,000 Units, SubCutaneous, Inj, Q8HInt, Routine, Start 01/03/22 22:00:00 EDT, 01/03/22 21:55:00 EDT hydrALAZINE, 10 mg, IV Push, Inj, Q6H, order duration: 24 Hour(s), PRN for Hypertension, Routine, Start 01/03/22 21:55:00 EDT, Stop 01/04/22 21:54:00 EDT, 01/03/22 21:55:00 EDT insulin lispro, Scale A:, SubCutaneous, Inj, AC and at Bedtime, Routine, Start 01/04/22 7:00:00 EDT, At HS give only if FSBG > 180 mg/dL labetalol, 10 mg, IV Push, Inj, Q6H, order duration: 24 Hour(s), PRN for Hypertension, Routine, Start 01/03/22 21:55:00 EDT, Stop 01/04/22 21:54:00 EDT, 01/03/22 21:55:00 EDT Lactated Ringers Injection intravenous solution 1,000 mL, 1,000 mL, Bag Volume (mL) = 1,000, IntraVENous, Rate = 150 mL/Hr, start date 01/04/22 0:03:00 EDT, Routine morphine, 2 mg, IV Push, Inj, Q4H, order duration: 24 Hour(s), PRN for Pain (Severe 7-10), Routine, Start 01/03/22 21:55:00 EDT, Stop 01/04/22 21:54:00 EDT, 01/03/22 21:55:00 EDT ondansetron, 4 mg, IV Push, Inj, Q6H, order duration: 24 Hour(s), PRN for Nausea/Vomiting, Routine, Start 01/03/22 21:55:00 EDT, Stop 01/04/22 21:54:00 EDT, 01/03/22 21:55:00 EDT CBC w/ Auto Diff CMP Comprehensive Metabolic Panel Communication to Nursing Communication to Nursing Communication to Nursing Communication to Nursing Communication to Nursing Consult to Physician CPAP Creatinine Urine Random Diabetes Education (Nursing) Diet, Adult Eosinophil Count Other Intake and Output Strict Lab Order Instructions to Nursing Medication Administration Instructions Notify Provider Notify Provider Notify Provider Patient Position Peripheral IV Insertion Platelet Count POC Glucose Resuscitation Status Seizure Precautions Seizure Precautions Sequential Compression Device Sodium Level Urine Random Urinalysis UA Rflx Microscopic Cult if Ind VTE Prophylaxis - Medical Heparin 5,000 Units, SubCutaneous, Inj, Q8HInt, Routine, Start 01/03/22 22:00:00 EDT, 01/03/22 21:55:00 EDT ([facility]) Sequential Compression Device Start: 01/03/22 21:25:00 EDT, Bilateral, Length: Knee High, While patient is in bed, Continuous Order ([facility]) Problem List/Past Medical History Ongoing Back pain COPD (chronic obstructive pulmonary disease) Coronary disease Diabetes GERD (gastroesophageal reflux disease) History of obstructive sleep apnea Renal failure Historical No qualifying data Procedure/Surgical History DIAGNOSTIC COLONOSCOPY, stent placement. Home Medications (13) Active acetaminophen-oxyCODONE 325 mg-10 mg oral tablet 1 Tab, PRN, Oral, Q6H aspirin 81 mg oral tablet, chewable 81 mg = 1 Tab, Oral, Daily atorvastatin 80 mg oral tablet , Oral, Daily Breo Ellipta 100 mcg-25 mcg inhalation powder 1 Puff, Inhalation, Daily clopidogrel 75 mg oral tablet , Oral, Daily furosemide 40 mg oral tablet , Oral, BID gabapentin 600 mg oral tablet 600 mg = 1 Tab, Oral, TID glipiZIDE 10 mg oral tablet , Oral, Daily lisinopril 20 mg oral tablet 20 mg = 1 Tab, Oral, BID metFORMIN 500 mg oral tablet 500 mg = 1 Tab, Oral, BID metoprolol succinate 50 mg oral capsule, extended release , Oral, Daily Vitamin D3 25 mcg (1000 intl units) oral tablet 25 mcg = 1 Tab, Oral, Daily Vitamin D3 50,000 units oral capsule 1,250 mcg = 1 Cap, Oral, Weekly Allergies Imdur Social History nonsmoker Family History Unable to assess due to pt's condition Diagnostic Results No Radiology Results Found Lab Results Test Name Test Result Date/Time Sodium Level 136 mmol/L 01/03/2022 21:48 EDT Potassium Level 4.9 mmol/L 01/03/2022 21:48 EDT Chloride Level 106 mmol/L 01/03/2022 21:48 EDT Carbon Dioxide Level 18 mmol/L (Low) 01/03/2022 21:48 EDT Anion Gap 17 01/03/2022 21:48 EDT Glucose Level 85 mg/dL 01/03/2022 21:48 EDT Blood Urea Nitrogen 95 mg/dL (Critical) 01/03/2022 21:48 EDT Creatinine Level 11.60 mg/dL (High) 01/03/2022 21:48 EDT eGFR 5 mL/min/1.73m2 (Low) 01/03/2022 21:48 EDT eGFR NonAfrican 4 mL/min/1.73m2 (Low) 01/03/2022 21:48 EDT Bun/Creatinine 8.2 01/03/2022 21:48 EDT Calcium Level 8.0 mg/dL (Low) 01/03/2022 21:48 EDT Protein Total 7.3 Gram/dL 01/03/2022 21:48 EDT Albumin Level 2.9 Gram/dL (Low) 01/03/2022 21:48 EDT Globulin 4.4 Gram/dL 01/03/2022 21:48 EDT A/G Ratio 0.7 (Low) 01/03/2022 21:48 EDT Bilirubin Total 0.4 mg/dL 01/03/2022 21:48 EDT Alk Phos 49 Units/Liter 01/03/2022 21:48 EDT AST 25 Units/Liter 01/03/2022 21:48 EDT ALT 16 Units/Liter 01/03/2022 21:48 EDT WBC 8.2 K/uL 01/03/2022 21:48 EDT RBC 3.69 Million/uL (Low) 01/03/2022 21:48 EDT Hgb 11.3 g/dL (Low) 01/03/2022 21:48 EDT Hct 34.6 % (Low) 01/03/2022 21:48 EDT MCV 93.8 fL 01/03/2022 21:48 EDT MCH 30.6 pg 01/03/2022 21:48 EDT MCHC 32.7 Gram/dL 01/03/2022 21:48 EDT Platelet Count 207 K/uL 01/03/2022 21:48 EDT MPV 9.6 fL 01/03/2022 21:48 EDT RDW 13.1 % 01/03/2022 21:48 EDT Neut % 78.6 % (High) 01/03/2022 21:48 EDT Neut # 6.48 K/uL (High) 01/03/2022 21:48 EDT Lymph % 8.7 % (Low) 01/03/2022 21:48 EDT Lymph # 0.72 x10(3)/uL (Low) 01/03/2022 21:48 EDT Callaway % 8.9 % 01/03/2022 21:48 EDT Callaway # 0.73 K/uL 01/03/2022 21:48 EDT Eos % 2.8 % 01/03/2022 21:48 EDT Eos # 0.23 x10(3)/uL 01/03/2022 21:48 EDT Baso % 0.5 % 01/03/2022 21:48 EDT Baso # 0.04 x10(3)/uL 01/03/2022 21:48 EDT Slide Review No 01/03/2022 21:48 EDT IG# 0.04 x10(3)/uL 01/03/2022 21:48 EDT IG% 0.50 % 01/03/2022 21:48 EDT Additional Documentation Code Status Start: 01/03/22 21:25:00 EDT, Full Code, Continuous Order documented in this encounter Plan of Treatment Not on file documented as of this encounter Visit Diagnoses Not on filedocumented in this encounter
--- OUTSIDE RECORDS SUMMARY | 2025-03-31 23:42 | XMS_ITS | Encounter Summary ---
Author Organization [email or web address] Address [address] [place] [address] Care Team Providers Care Operations Team Leader Name Role Phone Unavailable Primary Care Provider Unavailabl e Encounter Details Date Type Department Care Team (Late st Contact Info) Description 01/07/2022 Transcribed Document [facility] [place] Family Medicine [address] [place] [address] ProviderCarlos MD [address] [place], [place] [address] Social History Tobacco Use Types Packs/Day Years Used Date Smoking Tobacco: Never Assessed Sex and Gender Information Value Date Recorded Sex Assigned at Male 04/15/2022 4:33 PM CDT Legal Sex Male 4:33 PM CDT Gender Identity Male 04/15/2022 4:33 PM CDT Sexual Orientation Not on file documented as of this encounter Miscellaneous Notes * Cerner Conversion Note - Historical ProviderMD - 01/07/2022 12:21 PM CDT UM Authorization Entered On: 01/07/2022 12:22 EDT Performed On: 01/07/2022 12:21 EDT by ISAIAS NAVARRO RN Primary Insurance Authorization Authorization and Policy Numbers : Insurance 1 Health Plan: [employer] Policy Number: [id number] Authorization Number: Insurance Primary Name : [employer] Policy Number: [id number] Authorization Status-Primary : Awaiting callback Reference Number-Primary : [id number] Authorized Service Begin Date-Primary : 01/03/2022 EDT Authorization Comments-Primary : Clinicals faxed via [employer] for IP approval Historical Authorization Comments-Primary : Comment 1: AUTH SUBMITTED VIA [employer] /w CLINICALS ATTACHED (Olive Dolan RN 01/04/2022 15:27) ISAIAS NAVARRO RN - 01/07/2022 12:21 EDT documented in this encounter Plan of Treatment Not on file documented as of this encounter Visit Diagnoses Not on filedocumented in this encounter
--- OUTSIDE RECORDS SUMMARY | 2025-03-31 23:42 | XMS_ITS | Encounter Summary ---
Author Organization [employer] Address [address] [place] [address] Care Team Providers Care Interstate Planner Name Role Phone Unavailable Primary Care Provider Unavailabl e Encounter Details Date Type Department Care Team (Late st Contact Info) Description 01/04/2022 Transcribed Document [facility] [place] Family Medicine [address] [place] [address] ProviderCarlos MD [address] [place] [address] Social History Tobacco Use Types Packs/Day Years Used Date Smoking Tobacco: Never Assessed Sex and Gender Information Value Date Recorded Sex Assigned at Male 04/15/2022 4:33 PM CDT Legal Sex Male 4:33 PM CDT Gender Identity Male 04/15/2022 4:33 PM CDT Sexual Orientation Not on file documented as of this encounter Miscellaneous Notes * Cerner Conversion Note - Historical ProviderMD - 01/04/2022 10:16 AM CDT Consult Phone Call Documentation Entered On: 01/04/2022 10:52 EDT Performed On: 01/04/2022 10:16 EDT by Mikaela Mendoza Patient Latex Caster Phan Phone Call for Consults Consult Phone Call/Page Attempt : First call Consult Reason : ZAHRA Provider Service Notified Name : Nephrology Physician Returning Call : SEBASTIÁN RUTH MD-NEP Consult, Additional Information : Consult called on 01/04/2022 spoke with Sebastián Montanez. is aware of the consult and pt is on his list. Mikaela Mendoza Patient Latex Caster I - 01/04/2022 10:49 EDT documented in this encounter Plan of Treatment Not on file documented as of this encounter Visit Diagnoses Not on filedocumented in this encounter
--- OUTSIDE RECORDS SUMMARY | 2025-03-31 23:42 | XMS_ITS | Encounter Summary ---
Author Organization [employer] Address [address] [place] [address] Care Team Providers Care Veterinary Laboratory Diagnostician Name Role Phone Unavailable Primary Care Provider Unavailabl e Encounter Details Date Type Department Care Team (Late st Contact Info) Description 01/08/2022 Transcribed Document [facility] [place] Family Medicine [address] [place] [address] ProviderCarlos MD [address] [place] [address] Social History Tobacco Use Types Packs/Day Years Used Date Smoking Tobacco: Never Assessed Sex and Gender Information Value Date Recorded Sex Assigned at Male 04/15/2022 4:33 PM CDT Legal Sex Male 4:33 PM CDT Gender Identity Male 04/15/2022 4:33 PM CDT Sexual Orientation Not on file documented as of this encounter Miscellaneous Notes * Cerner Conversion Note - Historical ProviderMD - 01/08/2022 1:12 PM CDT Nursing Discharge Summary Entered On: 01/08/2022 13:13 EDT Performed On: 01/08/2022 13:12 EDT by Irene Gomez Discharge Documentation Discharge Date/Time : 01/08/2022 13:12 EDT Patient Disposition, General : Discharge Discharge To : Home with ambulatory/outpatient follow-up Mode Of Departure, General Discharge : Private vehicle Accompanied By, Discharge : Spouse IV Discontinued : Yes Personal Belongings With Patient : Yes Prescriptions Given to Patient : Yes Education Comment : patient verbalizes understanding of POC, meds, safety Irene Gomez - 01/08/2022 13:12 EDT documented in this encounter Plan of Treatment Not on file documented as of this encounter Visit Diagnoses Not on filedocumented in this encounter
--- OUTSIDE RECORDS SUMMARY | 2025-03-31 23:42 | XMS_ITS | Encounter Summary ---
Author Organization [employer] Address [address] [place] [address] Care Team Providers Care Principal Trainer Name Role Phone Unavailable Primary Care Provider Unavailabl e Encounter Details Date Type Department Care Team (Late st Contact Info) Description 01/04/2022 Transcribed Document [facility] [place] Family Medicine [address] [place] [address] ProviderCarlos MD [facility] [address] [place], [place] [address] Social History Tobacco Use Types Packs/Day Years Used Date Smoking Tobacco: Never Assessed Sex and Gender Information Value Date Recorded Sex Assigned at Male 04/15/2022 4:33 PM CDT Legal Sex Male 4:33 PM CDT Gender Identity Male 04/15/2022 4:33 PM CDT Sexual Orientation Not on file documented as of this encounter Miscellaneous Notes * Cerner Conversion Note - Historical ProviderMD - 01/04/2022 8:01 AM CDT Patient: INEZ SHOOK JR Age: 66 years Sex: Male : 1955 Associated Diagnoses: None Author: MIRTHA TORRES, Subjective 01/04 d/w girlfriend- yajaira via phone today. had been sick with no energy and was nausea and vomiting for 1 week. he also complained of not being able to urinate with lower output. patient seen by met his morning, no coughing or sob, no n/v, no abd pain. Health Status Current medications: Medications (24) Active Scheduled: (10) aspirin 81 mg chew tab 81 mg 1 Tab, Oral, Daily atorvastatin 40 mg tab 80 mg 2 Tab, Oral, Daily clopidogrel 75 mg tab 75 mg 1 Tab, Oral, Daily ergocalciferol 50,000 unit cap 50,000 Units 1 Cap, Oral, Weekly gabapentin 600 mg tab 600 mg 1 Tab, Oral, TID heparin 5,000 units/1 mL inj 5,000 Units 1 mL, SubCutaneous, Q8HInt insulin lispro 1 unit/0.01 mL inj Scale A:, SubCutaneous, AC and at Bedtime metoprolol succinate XL 50 mg tab 50 mg 1 Tab, Oral, Daily mometasone/formoterol 200/5 mcg inh 2 Puff, Inhalation, RT_BID sodium bicarbonate 650 mg tab 1,300 mg 2 Tab, Oral, BID Continuous: (1) lactated ringers 1,000 mL 1,000 mL, IntraVENous, 150 mL/Hr PRN: (13) acetaminophen 325 mg tab 650 mg 2 Tab, Oral, Q6H acetaminophen/oxyCODONE 325/10 mg tab 1 Tab, Oral, Q6H dextrose 50% 25 g/50 mL inj syr 25 Gram 50 mL, IV Push, Q15Min dextrose 50% 25 g/50 mL inj syr 25 Gram 50 mL, IV Push, Q15Min dextrose 50% 25 g/50 mL inj syr 25 Gram 50 mL, IV Push, Q15Min dextrose 50% 25 g/50 mL inj syr 12.5 Gram 25 mL, IV Push, Q15Min glucagon 1 mg/1 mL inj 1 mg 1 mL, IntraMuscular, Q15Min glucose 4 g tab 16 Gram 4 Tab, Chew, Q15Min glucose 40% gel 15 g 15 Gram 37.5 mL, Oral, Q15Min hydrALAZINE 20 mg/1 mL inj 10 mg 0.5 mL, IV Push, Q6H labetalol 100 mg/20 mL inj 10 mg 2 mL, IV Push, Q6H morphine 2 mg/1 ml inj 2 mg 1 mL, IV Push, Q4H ondansetron 4 mg/2 mL inj 4 mg 2 mL, IV Push, Q6H Objective Intake and Output Intake & Output Totals Last 24 Hours (7a-7a) Intake (0 Events) No intake events found in the last 24 hours. Output (1 Events) Schmid Catheter (350 mL) Input Total: 0 mL Output Total: 350 mL Balance: -350 mL VS/Measurements Vitals Signs (last 24 hrs) Last Charted Minimum Maximum Temp 98.9 (JAN 04 06:00) 98.9 (JAN 04 06:00) 99.2 (JAN 03 20:53) Mon HR 75 (JAN 04 06:00) 75 (JAN 04 06:00) 81 (JAN 04 03:28) Resp Rate 16 (JAN 04 06:00) 16 (JAN 03 20:53) 18 (JAN 04 03:28) SBP H 167 (JAN 04 06:00) 122 (JAN 03 20:53) H 167 (JAN 04 06:00) DBP 90 (JAN 04 06:00) 81 (JAN 03 20:53) 90 (JAN 04 06:00) MAP 112 (JAN 04:00) 92 (JAN 03 20:53) 112 (JAN 04 06:00) SpO2 L 93 (JAN 04:) L 93 (JAN 04:) 100 (JAN 04:28) General: No acute distress. Eye: Pupils are equal, round and reactive to light, Normal conjunctiva. HENT: Normocephalic, Normal hearing. Respiratory: on room air, bilateral wheezing at bases, no rhonchi. Cardiovascular: Normal rate, Regular rhythm, No murmur, No edema. Gastrointestinal: Soft, Non-tender, Non-distended, Normal bowel sounds. Genitourinary: schmid in place draining clear pink urine. . Integumentary: Warm, Dry. Neurologic: Alert, knows name and but not month. tells me that it is 2022. for age he tells me that he is getting up in age . . Psychiatric: Cooperative, Appropriate mood & affect. Results Review General results Interpretation: JAN 04 06:38 138 106 C 97 / 94 4.7 L 15 H 11.00 \ JAN 04 06:38 \ L 11.4 / 6.7 206 / L 36.4 \ Labs (Last four charted values) WBC 6.7 (JAN 04) 8.2 (JAN 03) HB L 11.4 (JAN 04) L 11.3 (JAN 03) HCT L 36.4 (JAN 04) L 34.6 (JAN 03) Plt 206 (JAN 04) 207 (JAN 03) Na 138 (JAN 04) 136 (JAN 03) K 4.7 (JAN 04) 4.9 (JAN 03) Cl 106 (JAN 04) 106 (JAN 03) CO2 L 15 (JAN 04) L 18 (JAN 03) BUN C 97 (JAN 04) C 95 (JAN 03) Cr H 11.00 (JAN 04) H 11.60 (JAN 03) Glu R 94 (JAN 04) 85 (JAN 03) Ca L 8.1 (JAN 04) L 8.0 (JAN 03) AST 25 (JAN 04) 25 (JAN 03) ALT L 14 (JAN 04) 16 (JAN 03) ALK P 51 (JAN 04) 49 (JAN 03) T Bili 0.4 (JAN 04) 0.4 (JAN 03) PTN 6.7 (JAN 04) 7.3 (JAN 03) ALB L 2.8 (JAN 04) L 2.9 (JAN 03) No Radiology Results Found Impression and Plan ZAHRA with metabolic acidosis - baseline renal function, per ER note, with creatinine of 0.9 on 11/08. - add po bicarb - check renal US - check UA - nephrology consulted - hold lasix/lisinopril - ER CT Abd showed no hydronephrosis or stones uremic encephalopathy - from above - monitor copd with acute exacerbation, poa - start nebs, steroids, doxy -check resp pcr panel. - stopped smoking in 2014 [place] - noncompliant with cpap htn - hold lisinopril chf, type unknown - continue aspirin, statin, plavix. type 2 dm - check a1c - ssi d/w rn d/w girlfriend yajaira, via phone today. pt has 2 sons and daughter. per girlfriend pt does not have HCS or POA. time spent: 28 min discharge goals: eval renal function, nephrology consult, monitor closely. wheezing on exam- start steroids/nebs/doxy for copd exac anticipated discharge disposition: home when ZAHRA resolved. Mirtha Tabor Hospitalist pager- [phone] documented in this encounter Plan of Treatment Not on file documented as of this encounter Visit Diagnoses Not on filedocumented in this encounter
--- OUTSIDE RECORDS SUMMARY | 2025-03-31 23:42 | XMS_ITS | Encounter Summary ---
Author Organization [employer] Address [address] [place] [address] Care Team Providers Care Bone Plant Supervisor Name Role Phone Unavailable Primary Care Provider Unavailabl e Encounter Details Date Type Department Care Team (Late st Contact Info) Description 01/05/2022 Transcribed Document [facility] [place] [address] [place] [address] ProviderCarlos MD [address] [place] [address] Social History Tobacco Use Types Packs/Day Years Used Date Smoking Tobacco: Never Assessed Sex and Gender Information Value Date Recorded Sex Assigned at Male 04/15/2022 4:33 PM CDT Legal Sex Male 4:33 PM CDT Gender Identity Male 04/15/2022 4:33 PM CDT Sexual Orientation Not on file documented as of this encounter Miscellaneous Notes * Cerner Conversion Note - Historical ProviderMD - 01/05/2022 5:00 AM CDT Chart Check - Review Order Profile Entered On: 01/05/2022 4:39 EDT Performed On: 01/05/2022 5:00 EDT by Monica Callahan V RN Chart Check Powerplans Initiated/Discontinued as Appropriate : Yes All Active Orders Reviewed : Yes Monica Callahan RN - 01/05/2022 4:39 EDT documented in this encounter Plan of Treatment Not on file documented as of this encounter Visit Diagnoses Not on filedocumented in this encounter
--- OUTSIDE RECORDS SUMMARY | 2025-03-31 23:42 | XMS_ITS | Encounter Summary ---
Author Organization [employer] Address [address] [place] [address] Care Team Providers Care Nursing Home Admissions Director Name Role Phone Unavailable Primary Care Provider Unavailabl e Encounter Details Date Type Department Care Team (Late st Contact Info) Description 01/08/2022 Transcribed Document [facility] [place] [address] ProviderCarlos MD [facility] [address], [place] [address] Social History Tobacco Use Types Packs/Day Years Used Date Smoking Tobacco: Never Assessed Sex and Gender Information Value Date Recorded Sex Assigned at Male 04/15/2022 4:33 PM CDT Legal Sex Male 4:33 PM CDT Gender Identity Male 04/15/2022 4:33 PM CDT Sexual Orientation Not on file documented as of this encounter Miscellaneous Notes * Cerner Conversion Note - Historical ProviderMD - 01/08/2022 2:03 PM CDT UM Authorization Entered On: 01/08/2022 14:04 EDT Performed On: 01/08/2022 14:03 EDT by Angelique Joyce, Steam Heating Installer Primary Insurance Authorization Authorization and Policy Numbers : Insurance 1 Health Plan: [employer] Policy Number: [id number] Authorization Number: Insurance Primary Name : [employer] - Policy Number: [id number] Authorization Status-Primary : Drg approved Auth/Referral Contact Name-Primary : [place] Reference Number-Primary : [id number] Authorization Number-Primary : [id number] Number of Days Authorized-Primary : 5 Day(s) Authorized Service Begin Date-Primary : 01/03/2022 EDT Authorized Service End Date-Primary : 01/08/2022 EDT Authorization Comments-Primary : Authorized per fax 01/08/22 @ 1237. Approved DRG inpatient length of stay 01/03 - 01/09. Historical Authorization Comments-Primary : Comment 1: Clinicals faxed via [employer] for IP approval (ISAIAS NAVARRO RN 01/07/2022 12:21) Comment 2: AUTH SUBMITTED VIA [employer] CLINICALS ATTACHED (Olive Dolan RN 01/04/2022 15:27) Angelique Joyce, Steam Heating Installer - 01/08/2022 14:03 EDT Electronically signed by Jayde Babin Conversion Billing And Accounting Staff Assistant Cerner at 02/02/2023 1:42 PM CDT documented in this encounter Plan of Treatment Not on file documented as of this encounter Visit Diagnoses Not on filedocumented in this encounter
--- OUTSIDE RECORDS SUMMARY | 2025-03-31 23:42 | XMS_ITS | Encounter Summary ---
Author Organization [employer] Address [address] [facility] [place] [address] Care Team Providers Care Food Service Aide Name Role Phone Unavailable Primary Care Provider Unavailabl e Encounter Details Date Type Department Care Team (Late st Contact Info) Description 01/03/2022 Transcribed Document [facility] [place] Family Medicine [address] [place] [address] ProviderCarlos MD [address] [place] [address] Social History Tobacco Use Types Packs/Day Years Used Date Smoking Tobacco: Never Assessed Sex and Gender Information Value Date Recorded Sex Assigned at Male 04/15/2022 4:33 PM CDT Legal Sex Male 4:33 PM CDT Gender Identity Male 04/15/2022 4:33 PM CDT Sexual Orientation Not on file documented as of this encounter Miscellaneous Notes * Cerner Conversion Note - Historical ProviderMD - 01/03/2022 11:33 PM CDT Education-Wound Care Entered On: 01/05/2022 0:19 EDT Performed On: 01/03/2022 23:33 EDT by Monica Callahan V RN Teaching/Learning Assessment Barriers To Learning : Acuity of Illness, Cognitive deficit Monica Callahan RN - 01/05/2022 0:18 EDT Education Topics, Wound Care Wound Education Grid Cleansing Wound : Needs reinforcement Debridement : Needs reinforcement Decrease Friction/Shear : Needs reinforcement Dressing Changes : Needs reinforcement Diapering : Needs reinforcement Etiology/Risk Factors : Needs reinforcement Hygiene : Needs reinforcement Incontinence Management : Needs reinforcement Infection Control : Needs reinforcement Nutritional Support : Needs reinforcement Pain Management : Needs reinforcement Plan of Care : Needs reinforcement Positioning : Needs reinforcement Postoperative Care : Needs reinforcement Pressure Relief : Needs reinforcement Pressure Ulcer Definition : Needs reinforcement Prevention : Needs reinforcement Principles of Wound Healing : Needs reinforcement Product Use : Needs reinforcement Recognize Signs and Symptoms of Skin Integrity Impairment : Needs reinforcement Reports Skin Changes to Healthcare Team : Needs reinforcement Risk Assessment : Needs reinforcement Skin Assessment : Needs reinforcement Skin Care : Needs reinforcement Support Surfaces : Needs reinforcement Wound Symptoms of Infection : Needs reinforcement Wound vacuum : Needs reinforcement Wound Care, Other : Needs reinforcement Monica Callahan RN - 01/05/2022 0:18 EDT Electronically signed by Talya [facility] Conversion Blast Furnace Auxiliaries Supervisor Cerner at 02/02/2023 1:49 PM CDT documented in this encounter Plan of Treatment Not on file documented as of this encounter Visit Diagnoses Not on filedocumented in this encounter
--- OUTSIDE RECORDS SUMMARY | 2025-03-31 23:42 | XMS_ITS | Encounter Summary ---
Author Organization [employer] Address [address] [facility] [place] [address] Care Team Providers Care Flotation Tender Name Role Phone Unavailable Primary Care Provider Unavailabl e Encounter Details Date Type Department Care Team (Late st Contact Info) Description 01/08/2022 Transcribed Document [facility] [place] Family Medicine [address] [place] [address] ProviderCarlos MD [address] [place], [place] [address] Social History Tobacco Use Types Packs/Day Years Used Date Smoking Tobacco: Never Assessed Sex and Gender Information Value Date Recorded Sex Assigned at Male 04/15/2022 4:33 PM CDT Legal Sex Male 4:33 PM CDT Gender Identity Male 04/15/2022 4:33 PM CDT Sexual Orientation Not on file documented as of this encounter Miscellaneous Notes * Cerner Conversion Note - Historical ProviderMD - 01/08/2022 7:27 AM CDT Stroke/Warfarin Instructions Entered On: 01/08/2022 7:28 EDT Performed On: 01/08/2022 7:27 EDT by Lilian Lucero RN Stroke/Warfarin Instructions Stroke/TIA Discharge Ins : Open Warfarin Discharge Ins : N/A Lilian Lucero RN - 01/08/2022 7:27 EDT Stroke/TIA Discharge Instructions Individualized Stroke Risk Factors *Q : Congestive heart failure, Diabetes, Hypertension/High blood pressure Stroke Education Handouts Given *Q : Yes Lilian Lucero RN - 01/08/2022 7:27 EDT Stroke Education Materials Given-Grid Activation of EMS *Q : Verbalizes understanding Follow-up Care After Discharge *Q : Verbalizes understanding Medications prescribed at DC *Q : Verbalizes understanding Risk Factors for Stroke *Q : Verbalizes understanding Warning S&S of Stroke *Q : Verbalizes understanding Lilian Lucero RN - 01/08/2022 7:27 EDT Stroke/TIA Signs/Symptoms to Report Immediately : Sudden onset difficulty speaking, Sudden onset difficulty understanding speech, Sudden onset change in vision, Sudden onset weakness particulary on one side of the body, Sudden onset numbness/tingling, Sudden severe headache, Sudden dizziness or trouble with gait, Call 9-: EMS activation is crucial My LDL Level: : LDL Level No qualifying data available. Lilian Lucero RN - 01/08/2022 7:27 EDT Education Topics: Anticoagulant Education Anticoagulant : Anticoagulant other than warfarin Compliance Issues *Q : Verbalizes understanding Diet *Q : Verbalizes understanding Adverse drug reactions/interactions *Q : Verbalizes understanding Action/Interaction with Other Drugs : Verbalizes understanding Follow-up care/monitoring *Q : Verbalizes understanding Follow-up Care Details : Physician's office/clinic Lilian Lucero RN - 01/08/2022 7:27 EDT documented in this encounter Plan of Treatment Not on file documented as of this encounter Visit Diagnoses Not on filedocumented in this encounter
--- OUTSIDE RECORDS SUMMARY | 2025-03-31 23:42 | XMS_ITS | Encounter Summary ---
Author Organization [employer] Address [address] [facility] [place] [address] Care Team Providers Care Poolroom Table Attendant Name Role Phone Unavailable Primary Care Provider Unavailabl e Encounter Details Date Type Department Care Team (Late st Contact Info) Description 01/04/2022 Transcribed Document [facility] [place] [address] [place] [address] ProviderCarlos MD [address] [place], [place] [address] Social History Tobacco Use Types Packs/Day Years Used Date Smoking Tobacco: Never Assessed Sex and Gender Information Value Date Recorded Sex Assigned at Male 04/15/2022 4:33 PM CDT Legal Sex Male 4:33 PM CDT Gender Identity Male 04/15/2022 4:33 PM CDT Sexual Orientation Not on file documented as of this encounter Miscellaneous Notes * Cerner Conversion Note - Historical ProviderMD - 01/04/2022 3:27 PM CDT UM Authorization Entered On: 01/04/2022 15:33 EDT Performed On: 01/04/2022 15:27 EDT by TERESA RUEDA RN Primary Insurance Authorization Authorization and Policy Numbers : Insurance 1 Health Plan: [employer] Medicaid Policy Number: [id number] Authorization Number: Insurance Primary Name : [employer] Medicaid Policy Number: [id number] Reference Number-Primary : [id number] Authorized Service Begin Date-Primary : 01/03/2022 EDT Authorization Comments-Primary : AUTH SUBMITTED VIA [employer] /[employer] CLINICALS ATTACHED Historical Authorization Comments-Primary : No Authorization Comments Found TERESA RUEDA RN - 01/04/2022 15:27 EDT documented in this encounter Plan of Treatment Not on file documented as of this encounter Visit Diagnoses Not on filedocumented in this encounter
--- OUTSIDE RECORDS SUMMARY | 2025-03-31 23:42 | XMS_ITS ---
Author Organization Unknown Encounters Encounter Type Performer Location Encounter Date Encoun ter Notes virtual Aislinn Salas - [id number]:22.00 0Z no notes virtual [employer] User - [id number] :22.000Z no notes virtual [employer] User - [id number] :02.000Z no notes virtual [employer] User - [id number] :12.000Z no notes virtual Humbertorenuka Brandon - [id number]:57:28.000 Z no notes Patient Care team information Name Category Status Period Participants - - Proposed period not known -
--- OUTSIDE RECORDS SUMMARY | 2025-03-31 23:42 | XMS_ITS | Encounter Summary ---
Author Organization [employer] Address [address] [place] [address] Care Team Providers Care Supervisor Engraving Name Role Phone Unavailable Primary Care Provider Unavailabl e Encounter Details Date Type Department Care Team (Late st Contact Info) Description 01/06/2022 Transcribed Document [facility] [place] [address] [place] [address] ProviderCarlos MD [facility] [place] [id number] Social History Tobacco Use Types Packs/Day Years Used Date Smoking Tobacco: Never Assessed Sex and Gender Information Value Date Recorded Sex Assigned at Male 04/15/2022 4:33 PM CDT Legal Sex Male 4:33 PM CDT Gender Identity Male 04/15/2022 4:33 PM CDT Sexual Orientation Not on file documented as of this encounter Miscellaneous Notes * Cerner Conversion Note - Historical ProviderMD - 01/06/2022 11:25 AM CDT Patient: INEZ SHOOK JR Age: 66 years Sex: Male : 1955 Associated Diagnoses: None Author: BARBRA HANNA MD-NEP Subjective Patient is feeling better, his urine output improved and his serum creatinine slowly improving with hydration Health Status Allergies: Allergic Reactions (Selected) Severity Not Documented Imdur- No reactions were documented., Allergies (1) Active Reaction Imdur None Documented Current medications: (Selected) Inpatient Medications Ordered Ativan: 0.5 mg, IntraMuscular, 1-Time, PRN: Irritability Colace: 100 mg, Oral, BID Dextrose 50% injection: 12.5 Gram, IV Push, Q15Min, PRN: Other (See Comment) Dextrose 50% injection: 25 Gram, IV Push, Q15Min, PRN: Other (See Comment) Dextrose 50% injection: 25 Gram, IV Push, Q15Min, PRN: Other (See Comment) Dextrose 50% injection: 25 Gram, IV Push, Q15Min, PRN: Other (See Comment) DuoNeb 0.5 mg-2.5 mg/3 mL inhalation solution: 3 mL, Nebulized Inhalation, RT_Q6H Lipitor: 80 mg, Oral, Daily Normal Saline 1,000 mL: 100 mL/Hr, IntraVENous Pulmicort Respules: 0.5 mg, Nebulized Inhalation, RT_BID Toprol-XL: 50 mg, Oral, Daily Vitamin D2: 50,000 Units, Oral, Weekly acetaminophen-oxyCODONE 325 mg-10 mg oral tablet: 1 Tab, Oral, Q6H, PRN: Pain (Moderate 4-6) acetaminophen: 650 mg, Oral, Q6H, PRN: Pain (Mild 1-3) aspirin: 81 mg, Oral, Daily clopidogrel: 75 mg, Oral, Daily doxycycline: 100 mg, Oral, BID glucagon: 1 mg, IntraMuscular, Q15Min, PRN: Other (See Comment) glucose 4 g oral tablet, chewable: 16 Gram, 4 Tab, Chew, Q15Min, PRN: Other (See Comment) glucose 40% oral gel: 15 Gram, 37.5 mL, Oral, Q15Min, PRN: Other (See Comment) heparin: 5,000 Units, SubCutaneous, Q8HInt insulin lispro sliding scale: Scale A:, SubCutaneous, AC and at Bedtime predniSONE: 40 mg, Oral, Daily senna: 8.6 mg, Oral, BID sodium bicarbonate 650 mg oral tablet: 1,300 mg, 2 Tab, Oral, TID Documented Medications Documented Breo Ellipta 100 mcg-25 mcg inhalation powder: 1 Puff, Inhalation, Daily, 0 Refill(s) Vitamin D3 25 mcg (1000 intl units) oral tablet: 1 Tab, Oral, Daily, 30 Tab, 0 Refill(s) Vitamin D3 50,000 units oral capsule: 1 Cap, Oral, Weekly, 12 Cap, 0 Refill(s) acetaminophen-oxyCODONE 325 mg-10 mg oral tablet: 1 Tab, Oral, Q6H, PRN: for pain, 0 Refill(s) aspirin 81 mg oral tablet, chewable: 1 Tab, Oral, Daily, 30 Tab, 0 Refill(s) atorvastatin 80 mg oral tablet: Tab, Oral, Daily, 0 Refill(s) clopidogrel 75 mg oral tablet: Tab, Oral, Daily, 0 Refill(s) furosemide 40 mg oral tablet: Tab, Oral, BID, 0 Refill(s) gabapentin 600 mg oral tablet: 1 Tab, Oral, TID, 90 Tab, 0 Refill(s) glipiZIDE 10 mg oral tablet: Tab, Oral, Daily, 0 Refill(s) lisinopril 20 mg oral tablet: 1 Tab, Oral, BID, 60 Tab, 0 Refill(s) metFORMIN 500 mg oral tablet: 1 Tab, Oral, BID, 60 Tab, 0 Refill(s) metoprolol succinate 50 mg oral capsule, extended release: Cap, Oral, Daily, 0 Refill(s), Home Medications (13) Active acetaminophen-oxyCODONE 325 mg-10 [...] 1,250 mcg = 1 Cap, Oral, Weekly , Medications (25) Active Scheduled: (14) albuterol-ipratropium inh 3 mL 3 mL, Nebulized Inhalation, RT_Q6H aspirin 81 mg chew tab 81 mg 1 Tab, Oral, Daily atorvastatin 40 mg tab 80 mg 2 Tab, Oral, Daily budesonide 0.5 mg/2 mL inh susp 0.5 mg 2 mL, Nebulized Inhalation, RT_BID clopidogrel 75 mg tab 75 mg 1 Tab, Oral, Daily docusate sodium 100 mg cap 100 mg 1 Cap, Oral, BID doxycycline hyclate 100 mg cap 100 mg 1 Cap, Oral, BID ergocalciferol 50,000 unit cap 50,000 Units 1 Cap, Oral, Weekly heparin 5,000 units/1 mL inj 5,000 Units 1 mL, SubCutaneous, Q8HInt insulin lispro 1 unit/0.01 mL inj Scale A:, SubCutaneous, AC and at Bedtime metoprolol succinate XL 50 mg tab 50 mg 1 Tab, Oral, Daily predniSONE 20 mg tab 40 mg 2 Tab, Oral, Daily senna 8.6 mg tab 8.6 mg 1 Tab, Oral, BID sodium bicarbonate 650 mg tab 1,300 mg 2 Tab, Oral, TID Continuous: (1) NaCl 0.9% 1,000 mL 1,000 mL, IntraVENous, 100 mL/Hr PRN: (10) acetaminophen 325 mg tab 650 mg 2 [...] g 15 Gram 37.5 mL, Oral, Q15Min LORazepam 2 mg/mL inj 0.5 mg 0.25 mL, IntraMuscular, 1-Time Problem list: Medical At risk for violence / IMO [id number] / Confirmed History of obstructive sleep apnea / IMO [id number] / Confirmed, Active Problems (8) At risk for violence Back pain COPD (chronic obstructive pulmonary disease) Coronary disease Diabetes GERD (gastroesophageal reflux disease) History of obstructive sleep apnea Renal failure Objective Intake and Output 24 hour intake VS/Measurements Vitals Signs (last 24 hrs) Last Charted Minimum Maximum Temp 97.5 (JAN 06 06:00) 97.5 (JAN 06 06:00) 98.3 (JAN 05 15:35) Apical HR 60 (JAN 06 09:41) 60 (JAN 06 09:41) 60 (JAN 06 09:41) Mon HR 77 (JAN 06 08:23) 58 (JAN 05 15:35) 77 (JAN 06 08:23) Resp Rate 16 (JAN 06 08:23) 16 (JAN 05 18:00) 18 (JAN 05 23:45) SBP 120 (JAN 06 06:00) 112 (JAN 05 15:35) 135 (JAN 05 18:00) DBP 74 (JAN 06 06:00) 66 (JAN 05 23:45) 74 (JAN 06 06:00) MAP 103 (JAN 06 03:30) 82 (JAN 05 15:35) 108 (JAN 05 18:00) SpO2 96 (JAN 06 08:23) 95 (JAN 05 23:45) 97 (JAN 05:35) General: Alert and oriented, No acute distress. Eye: Normal conjunctiva. HENT: Normocephalic, Normal hearing, Oral mucosa is moist. Neck: Supple, No carotid bruit, No jugular venous distention, No lymphadenopathy, No thyromegaly. Respiratory: Lungs are clear to auscultation, Respirations are non-labored, Breath sounds are equal, Symmetrical chest wall expansion. Cardiovascular: No murmur, No gallop. Gastrointestinal: Soft, Non-tender, Non-distended, Normal bowel sounds, No organomegaly. Musculoskeletal: No swelling. Neurologic: Alert. Psychiatric: Cooperative, Appropriate mood & affect, Normal judgment, Non-suicidal. Results Review Intake & Output Totals Last 24 Hours (7a-7a) Intake (11 Events) Continuous Infusions (800 mL) Medications (1 mL) Oral Intake (720 mL) Output (2 Events) Resendiz Catheter (1000 mL) Input Total: 1521 mL Output Total: 1000 mL Balance: 521 mL Labs (Last four charted values) WBC 8.5 [...] 2.8 (JAN 04) L 2.9 (JAN 03) Impression and Plan Acute kidney injury, severe-nonoliguric Uremia with uremic [...] have good oral nutrition/good oral fluid intake. Serum creatinine is trending down, I will continue with hydration and correction of the metabolic acidosis, no indication for dialysis at this point and will keep watching. documented in this encounter Plan of Treatment Not on file documented as of this encounter Visit Diagnoses Not on filedocumented in this encounter
--- OUTSIDE RECORDS SUMMARY | 2025-03-31 23:42 | XMS_ITS | Encounter Summary ---
Author Organization [employer] Address [address] [place] [address] Care Team Providers Care Swatch Checker Name Role Phone Unavailable Primary Care Provider Unavailabl e Encounter Details Date Type Department Care Team (Late st Contact Info) Description 01/05/2022 Transcribed Document [facility] [place] Family Medicine [address] [place] [address] ProviderCarlos MD [address] [place] [address] Social History Tobacco Use Types Packs/Day Years Used Date Smoking Tobacco: Never Assessed Sex and Gender Information Value Date Recorded Sex Assigned at Male 04/15/2022 4:33 PM CDT Legal Sex Male 4:33 PM CDT Gender Identity Male 04/15/2022 4:33 PM CDT Sexual Orientation Not on file documented as of this encounter Miscellaneous Notes * Cerner Conversion Note - Historical ProviderMD - 01/05/2022 2:00 AM CDT Spreader Box Operator Details Entered On: 01/05/2022 0:20 EDT Performed On: 01/05/2022 2:00 EDT by Monica Callahan V, RN Order Details Transport Mode Order Detail : Wheelchair Isolation Precautions Order Detail : Standard Precautions Order Detail : N/A IV Order Detail : 0 Oxygen Order Detail : 0 Nurse Collect Order Detail : 0 Lift/Transfer : Minimal Central Line Order Detail : No Room Service : Not Appropriate Arterial Line : No Patient Needs Meds Crushed/Liquid : No Monica Callahan V, RN - 01/05/2022 0:20 EDT Electronically signed by Jayde Babin Conversion Straight Slicing Machine Operator Cerner at 02/02/2023 2:07 PM CDT documented in this encounter Plan of Treatment Not on file documented as of this encounter Visit Diagnoses Not on filedocumented in this encounter
--- OUTSIDE RECORDS SUMMARY | 2025-03-31 23:42 | XMS_ITS | Encounter Summary ---
Author Organization [employer] Address [address] [place] [address] Care Team Providers Care Informatics Consultant Name Role Phone Unavailable Primary Care Provider Unavailabl e Encounter Details Date Type Department Care Team (Late st Contact Info) Description 01/06/2022 Transcribed Document [facility] [place] [address] [place] [address] ProviderCarlos MD [address] [place], [place] [address] Social History Tobacco Use Types Packs/Day Years Used Date Smoking Tobacco: Never Assessed Sex and Gender Information Value Date Recorded Sex Assigned at Male 04/15/2022 4:33 PM CDT Legal Sex Male 4:33 PM CDT Gender Identity Male 04/15/2022 4:33 PM CDT Sexual Orientation Not on file documented as of this encounter Miscellaneous Notes * Cerner Conversion Note - Historical ProviderMD - 01/06/2022 3:50 PM CDT Initial Discharge Planning Entered On: 01/06/2022 15:52 EDT Performed On: 01/06/2022 15:50 EDT by RODDY PHILLIPS RN - Combine Inspector Initial Assessment I Previously Documented Living Environment : No qualifying data available. Living Situation : Home Patient Lives With : Significant other(s) Emergency Contact #1 : Izabela Sanchezn Emergency Contact #1 Phone Number : [phone] Emergency Contact #1 Relationship : girlfriend Emergency Contact #2 : none Emergency Contact #2 Phone Number : none Emergency Contact #2 Relationship : none Identified Medical Decision Maker : self Number of People in Class : 1 Identified Medical Decision Maker Class : self Enter Doctors Name : Dr. Ryan Does Patient have PCP Listed? : Yes Legal Guardian : No RODDY PHILLIPS RN - Combine Inspector - 01/06/2022 15:50 EDT Initial Assessment II Current Home Treatments and Equipment : DONTE BradleyH, RN - Combine Inspector - 01/06/2022 15:50 EDT Discharge Needs I Anticipated Discharge Date : 01/07/2022 EDT Anticipated Discharge To, CM : Home independently Current Home Treatment/Equipment : Current Home Treatment/Equipment No qualifying data available. Documentation Status Complete : Yes RODDY PHILLIPS RN - Combine Inspector - 01/06/2022 15:50 EDT Discharge Needs II Professional Skilled Services : Professional Skilled Services No qualifying data available. Needs Assistance with Transportation : No Patient Discharge Goal : Home RODDY PHILLIPS RN - Combine Inspector - 01/06/2022 15:50 EDT Narrative Note Narrative Note : RRS Mod Day 3 Patient was admitted for ZAHRA, AMS. Hx CHF, COPD. Has Rhinovirus in precautions. Consult to nephrology. He lives at home with his girlfriend. Has a walker. No oxygen or home health. covid x 3. He says he is ind with ADLs and can get in and out of a car. Probable discharge home with girlfriend to transport. RODDY PHILLIPS RN - Combine Inspector - 01/06/2022 15:50 EDT documented in this encounter Plan of Treatment Not on file documented as of this encounter Visit Diagnoses Not on filedocumented in this encounter
--- OUTSIDE RECORDS SUMMARY | 2025-03-31 23:42 | XMS_ITS | Referral Summary ---
Author Organization [employer] Address [address] [place] [address] Care Team Providers Care Tool Planner Name Role Phone Unavailable Primary Care Provider Unavailabl e Social History Tobacco Use Types Packs/Day Years Used Date Smoking Tobacco: Never Assessed Sex and Gender Information Value Date Recorded Sex Assigned at Male 04/15/2022 4:33 PM CDT Legal Sex Male 4:33 PM CDT Gender Identity Male 04/15/2022 4:33 PM CDT Sexual Orientation Not on file Plan of Treatment Not on file
--- OUTSIDE RECORDS SUMMARY | 2025-03-31 23:42 | XMS_ITS | Encounter Summary ---
Author Organization [employer] Address [address] [place] [address] Care Team Providers Care Teletypist Name Role Phone Unavailable Primary Care Provider Unavailabl e Encounter Details Date Type Department Care Team (Late st Contact Info) Description 01/05/2022 Transcribed Document [facility] [place] [address] [place] [address] ProviderCarlos MD [facility] [place] [address] Social History Tobacco Use Types [...] Conversion Note - Historical ProviderMD - 01/05/2022 11:16 AM CDT Patient: INEZ SHOOK JR Age: 66 years Sex: Male : 1955 Associated Diagnoses: None Author: ANA TORRES, Subjective pt seen by me this morning, he tells me that he is having some pain from the schmid and would like it dc'd. he denies cp or sob, no wheezing, no abd pain. no bm in 3 days and he does feel constipated. he is passing gas. Objective Intake and Output Intake & Output Totals Last 24 Hours (7a-7a) Intake (6 Events) Medications (2 mL) Oral Intake (950 mL) Output (2 Events) Schmid Catheter (1350 mL) Input Total: 952 mL Output Total: 1350 mL Balance: -398 mL VS/Measurements Vitals Signs (last 24 hrs) Last Charted Minimum Maximum Temp 97.9 (JAN 05 10:23) 96.9 (JAN 05 07:00) H 99.8 (JAN 04 14:29) Apical HR 67 (JAN 05 10:25) 67 (JAN 05 10:25) 67 (JAN 05 10:25) Mon HR 62 (JAN 05 10:23) 53 (JAN 05 07:00) 121 (JAN 05 02:24) Resp Rate 18 (JAN 05 07:00) L 12 (JAN 04 23:34) 19 (JAN 04 23:51) SBP 140 (JAN 05 10:) 118 (JAN 05 07:00) H 173 (JAN 04 18:31) DBP 82 (JAN 05 10:) 73 (JAN 04 14:29) 86 (JAN 04 18:31) MAP 101 (JAN 05 10:) 90 (JAN 05 07:00) 122 (JAN 04 18:31) SpO2 96 (JAN 05:23) L 93 (JAN 04 14:29) 96 (JAN 04 23:34) General: No acute distress. Eye: Pupils are equal, round and reactive to light, Normal conjunctiva. HENT: Normocephalic, Normal hearing. Respiratory: on room air, bilateral wheezing at bases, no rhonchi. Cardiovascular: Normal rate, Regular rhythm, No murmur, No edema. Gastrointestinal: Soft, Non-tender, Non-distended, Normal bowel sounds. Genitourinary: schmid in place draining clear pink urine. . Integumentary: Warm, Dry. Neurologic: Alert, knows its december 2021. knows . no tremor. Psychiatric: Cooperative, Appropriate mood & affect. Results Review General results Interpretation: JAN 05 08:52 136 103 C 108 / H 159 4.7 21 H 9.90 \ JAN 05 08:52 \ L 11.2 / 5.3 228 / L 32.8 \ Labs (Last four charted values) WBC 5.3 (JAN 05) 6.7 (JAN 04) 8.2 (JAN 03) HB L 11.2 (JAN 05) L 11.4 (JAN 04) L 11.3 (MAR 18) HCT L 32.8 (DEC 20) L 36.4 (DEC 19) L 34.6 (DEC 18) Plt 228 (DEC 20) 206 (DEC 19) 207 (DEC 18) Na 136 (DEC 20) L 135 (DEC 19) 138 (DEC 19) 136 (DEC 18) K 4.7 (DEC 20) 4.2 (DEC 19) 4.7 (DEC 19) 4.9 (DEC 18) Cl 103 (DEC 20) 103 (JAN 04) 106 (JAN 04) 106 (DEC 18) CO2 21 (DEC 20) L 19 (JAN 04) L 15 (JAN 04) L 18 (DEC 18) BUN C 108 (JAN 05) C 98 (JAN 04) C 97 (JAN 04) C 95 (JAN 03) Cr H 9.90 (JAN 05) H 10.60 (JAN 04) H 11.00 (JAN 04) H 11.60 (DEC 18) Glu R H 159 (JAN 05) 104 (JAN 04) 94 (JAN 04) 85 (DEC 18) Ca 8.7 (JAN 05) L 8.2 (JAN 04) L 8.1 (JAN 04) L 8.0 (JAN 03) Lactic 1.7 (JAN 04) PT 10.6 (JAN 04) INR 1.0 (JAN 04) AST 25 (JAN 04) 25 (JAN 03) ALT L 14 (JAN 04) 16 (JAN 03) ALK P 51 (JAN 04) 49 (JAN 03) T Bili 0.4 (JAN 04) 0.4 (JAN 03) PTN 6.7 (JAN 04) 7.3 (JAN 03) ALB L 2.6 (JAN 05) L 2.8 (JAN 04) L 2.9 (JAN 03) Radiology Results (Last 48 hours) [id number] -- 01/03/2022 20:35 US Renal Comp (01/04/2022 09:56) Result: RENAL ULTRASOUNDHISTORY: Renal failure .PROCEDURE: Ultrasound images of the kidneys were obtained.FINDINGS: Limited images of the liver parenchyma demonstrate normal echogenicity . The right kidney measures 12 cm in length. It is normal echogenicity . There is no hydronephrosis .The left kidney measures 13 cm in length. It is normal echogenicity . There is no hydronephrosis .IMPRESSION: Normal renal ultrasound .Images reviewed, interpreted, and dictated by Jose Aaron MD CR Chest 1 Vw Portable (01/04/2022 10:43) Result: PORTABLE CHEST 01/04/2022 10:17 AM HISTORY: Cough.COMPARISON: None.FINDINGS: The heart is normal in size . The mediastinum isunremarkable . Prominent perihilar interstitial changes are noted,likely secondary to viral pneumonia. There is no pneumothorax . Theosseous structures are unremarkable . The lungs are hypoaerated.IMPRESSION: Prominent interstitial changes are likely secondary toviral pneumonia. Continued follow-up is recommended .Images reviewed, interpreted, and dictated by Jose Aaron MD Impression and Plan ZAHRA with metabolic acidosis - baseline renal function, per ER note, with creatinine of 0.9 on 11/08. - added po bicarb on 01/04 -renal us nml - nephrology consult appreciated - hold lasix/lisinopril - ER CT Abd [...] - a1c 6.7 - ssi d/w rn 01/04 d/w girlfriend yajaira, via phone on 01/04. pt has 2 sons and daughter. per girlfriend pt does not have HCS or POA. 01/05: no family present. creatinine slightly improved, pt less confused, no wheezing today- wean solumedrol to prednisone. time spent: 28 min discharge goals: monitor renal function anticipated discharge disposition: home when ZAHRA resolved. Ana Tabor Hospitalist pager- [phone] documented in this encounter Plan of Treatment Not on file documented as of this encounter Visit Diagnoses Not on filedocumented in this encounter
--- OUTSIDE RECORDS SUMMARY | 2025-03-31 23:42 | XMS_ITS | Encounter Summary ---
Author Organization [employer] Address [address] [place] [address] Care Team Providers Care Termite Treater Helper Name Role Phone Unavailable Primary Care Provider Unavailabl e Encounter Details Date Type Department Care Team (Late st Contact Info) Description 01/03/2022 Transcribed Document [facility] [place] Family [place] [address] [place] [address] ProviderCarlos MD [address] [place] [address] Social History Tobacco Use Types Packs/Day Years Used Date Smoking Tobacco: Never Assessed Sex and Gender Information Value Date Recorded Sex Assigned at Male 04/15/2022 4:33 PM CDT Legal Sex Male 4:33 PM CDT Gender Identity Male 04/15/2022 4:33 PM CDT Sexual Orientation Not on file documented as of this encounter Miscellaneous Notes * Cerner Conversion Note - Historical ProviderMD - 01/03/2022 9:25 PM CDT Consult Phone Call Documentation Entered On: 01/04/2022 17:27 EDT Performed On: 01/03/2022 21:25 EDT by Mikaela Mendoza Patient Stress Analyst Phan Phone Call for Consults Consult Phone Call/Page Attempt : First call Consult Reason : ZAHRA Consult, Additional Information : pt was seen on by Dr. Sanchez [place]. Mikaela Mendoza, Patient Stress Analyst I - 01/04/2022 17:26 EDT documented in this encounter Plan of Treatment Not on file documented as of this encounter Visit Diagnoses Not on filedocumented in this encounter
--- OUTSIDE RECORDS SUMMARY | 2025-03-31 23:42 | XMS_ITS | Encounter Summary ---
Author Organization [employer] Address [address] [place] [address] Care Team Providers Care Warehouse Worker Name Role Phone Unavailable Primary Care Provider Unavailabl e Encounter Details Date Type Department Care Team (Late st Contact Info) Description 01/07/2022 Transcribed Document [facility] [place] [address] [place] [address] ProviderCarlos MD [facility] [place] [address] Social History Tobacco Use Types Packs/Day Years Used Date Smoking Tobacco: Never Assessed Sex and Gender Information Value Date Recorded Sex Assigned at Male 04/15/2022 4:33 PM CDT Legal Sex Male 4:33 PM CDT Gender Identity Male 04/15/2022 4:33 PM CDT Sexual Orientation Not on file documented as of this encounter Miscellaneous Notes * Cerner Conversion Note - Historical ProviderMD - 01/07/2022 12:22 PM CDT Patient: INEZ SHOOK JR Age: [...] Inhalation, RT_Q6H Lipitor: 80 mg, Oral, Daily Pulmicort Respules: 0.5 mg, Nebulized Inhalation, RT_BID [...] tablet: 1,300 mg, 2 Tab, Oral, TID sodium bicarbonate injection 75 mEq + Sodium Chloride 0.45% intravenous solution 1,000 mL: 150 mL/Hr, IntraVENous Documented Medications Documented Breo Ellipta 100 mcg-25 [...] mg 2 Tab, Oral, TID Continuous: (1) sodium bicarbonate 75 mEq + NaCl 0.45% 1,000 mL 1,000 mL, IntraVENous, 150 mL/Hr PRN: (10) acetaminophen 325 mg tab [...] Medical At risk for violence / IMO [id number] / Confirmed History of obstructive sleep apnea / IMO [id number] / Confirmed, Active Problems (8) At risk [...] HR 64 (JAN 07 11:04) 64 (JAN 07:01) 64 (JAN 07:01) Mon HR 65 (JAN 07:20) 57 (JAN 07 06:04) 75 (JAN 06:00) Resp Rate 18 (JAN 07:20) 14 (JAN 07 06:00) 18 (JAN 06:00) SBP 130 (JAN 07 11:04) 124 (JAN 07 03:12) 134 (JAN 07 06:04) DBP 71 (JAN 07 11:04) 63 (JAN 07 03:12) 81 (JAN 07 06:04) MAP 85 (JAN 07:) 80 (JAN 07 03:12) 97 (JAN 07 06:04) SpO2 96 (JAN 07) 94 (JAN 06:) 98 (JAN 06:00) General: Alert and oriented, No acute distress. [...] the last 24 hours. Output (1 Events) Resendiz Catheter (1000 mL) Input Total: 0 mL Output Total: 1000 mL Balance: -1000 mL Labs (Last four charted values) WBC [...] 2.6 (JAN 05) L 2.8 (JAN 04) Impression and Plan Acute kidney injury, severe-nonoliguric Uremia with uremic encephalopathy Viral bronchitis Diabetes mellitus on insulin Toxic metabolic encephalopathy Acute kidney injury, nonoliguric I am reassured that his renal ultrasound, CPK, lactic acid and electrolytes are all normal. His serum creatinine is slowly downtrending. I will continue with IV fluids at the current rate with added sodium bicarbonate to correct the acidosis. If the serum creatinine continues to improve in a.m. patient can be discharged from the renal point of view and we will follow him up as outpatient next week. documented in this encounter Plan of Treatment Not on file documented as of this encounter Visit Diagnoses Not on filedocumented in this encounter
--- OUTSIDE RECORDS SUMMARY | 2025-03-31 23:42 | XMS_ITS | Encounter Summary ---
Author Organization [employer] Address [address] [facility] [place] [address] Care Team Providers Care Investment Professional Name Role Phone Unavailable Primary Care Provider Unavailabl e Encounter Details Date Type Department Care Team (Late st Contact Info) Description 01/07/2022 Transcribed Document [facility] [place] [address] [place] [address] ProviderCarlos MD [address], [place] [address] Social History Tobacco Use Types Packs/Day Years Used Date Smoking Tobacco: Never Assessed Sex and Gender Information Value Date Recorded Sex Assigned at Male 04/15/2022 4:33 PM CDT Legal Sex Male 4:33 PM CDT Gender Identity Male 04/15/2022 4:33 PM CDT Sexual Orientation Not on file documented as of this encounter Miscellaneous Notes * Cerner Conversion Note - Historical Provider, - 01/07/2022 2:16 PM CDT On Going Discharge Planning Entered On: 01/07/2022 14:18 EDT Performed On: 01/07/2022 14:16 EDT by RODDY PHILLIPS RN - Photographic EditorCall Center Nurse Progress Note Discharge Arrangements : Patient Post-Acute Information Patient Name: INEZ MALDONADO JR Gender: Male : [birth year] Age: 66 Years No Post-Acute Placement(s) Listed No Post-Acute Service(s) Listed No Curaspan Referral(s) Listed Patient Discharge Goal : Home Is the Patient Meeting Medical Necessity : Yes Did you Attend Multidisciplinary Rounds? : Yes RODDY PHILLIPS RN - Photographic Editor - 01/07/2022 14:16 EDT Narrative Progress Note Narrative Progress Note : RRS Mod Day 01/20 Patient was admitted for renal failure. Hx CHF, COPD. Consults to neph. Order to discontinue his schmid catheter today. Per hospitalist note if his creatinine stays under 6 he can go home tomorrow 01/08. Probable discharge home with girlfriend to transport. DCP: home RODDY PHILLIPS, RN - Photographic Editor - 01/07/2022 14:16 EDT Electronically signed by Talya [facility] Conversion Museum Tour Guide Cerner at 02/02/2023 1:53 PM CDT documented in this encounter Plan of Treatment Not on file documented as of this encounter Visit Diagnoses Not on filedocumented in this encounter
--- OUTSIDE RECORDS SUMMARY | 2025-03-31 23:42 | XMS_ITS | Encounter Summary ---
Author Organization [employer] Address [address] [place] [address] Care Team Providers Care Finishing Tunnel Operator Name Role Phone Unavailable Primary Care Provider Unavailabl e Encounter Details Date Type Department Care Team (Late st Contact Info) Description 01/04/2022 Transcribed Document [facility] [place] [address] [place] [address] ProviderCarlos MD [facility] [place], [place] [id number] Social History Tobacco Use Types Packs/Day Years Used Date Smoking Tobacco: Never Assessed Sex and Gender Information Value Date Recorded Sex Assigned at Male 04/15/2022 4:33 PM CDT Legal Sex Male 4:33 PM CDT Gender Identity Male 04/15/2022 4:33 PM CDT Sexual Orientation Not on file documented as of this encounter Miscellaneous Notes * Cerner Conversion Note - Historical ProviderMD - 01/04/2022 12:06 AM CDT Pain Assessment Entered On: 01/06/2022 2:09 EDT Performed On: 01/05/2022 21:58 EDT by EMMA DIEGO LPN Intervention Information: acetaminophen-oxyCODONE Performed by EMMA DIEGO LPN on 01/05/2022 20:58:00 EDT acetaminophen-oxyCODONE,1Tab Oral,Pain (Moderate 4-6) Pain Assessment Pain Assessment : Follow-up assessment Pain Scale Goal : 4 Pain Scale Used : 0-10 Scale EMMA DIEGO LPN - 01/06/2022 2:09 EDT Pain Scale Intensity : 0 EMMA DIEGO LPN - 01/06/2022 2:09 EDT Image 4 - Images currently included in the form version of this document have not been included in the text rendition version of the form. documented in this encounter Plan of Treatment Not on file documented as of this encounter Visit Diagnoses Not on filedocumented in this encounter
--- OUTSIDE RECORDS SUMMARY | 2025-03-31 23:43 | XMS_ITS | Clinical Summary ---
Author Organization [facility] Address [address] [place] [address] Care Team Providers Care Mailer Apprentice Name Role Phone Kaveh Ryan MD Primary Care Provider + [phone] Kalli Shipley MD Unavailable + [phone] Allergies Active Allergy Reactions Criticality Noted Date Comments Isosorbide Headache Low 08/20/2022 Medications atorvastatin (Lipitor) 80 MG tablet Take 1 tablet (80 mg) by mouth every night. Active clopidogrel (Plavix) 75 MG tabletIndications: Dual anti-platelet therapy for 3 months (End date: 03/30/2022) for management of Right subclavian artery dissection. Take 1 tablet (75 mg) by mouth 1 (one) time each day. Active metFORMIN (Glucophage) 850 MG tablet Take 500 mg by mouth in the morning and 500 mg in the evening. Take with meals. Active aspirin 81 MG EC tablet Take 1 tablet (81 mg) by mouth 1 (one) time each day. Active acetaminophen (Tylenol) 325 MG tablet Take 2 tablets (650 mg) by mouth every 4 (four) hours if needed for mild pain. Active pantoprazole (Protonix) 40 MG EC tablet Take 40 mg by mouth 2 (two) times a day. Do not crush, chew, or split. Active albuterol 108 (90 Base) MCG/ACT inhaler Inhale 2 puffs every 4 (four) hours if needed for wheezing or shortness of breath. 18 g 04/17/20 22 Active Additional Information Patient not taking.Reported on 12/30/2024 metoprolol tartrate (Lopressor) 25 MG tablet Take 1 tablet (25 mg total) by mouth 2 (two) times a day. 60 tablet 1 04/17/20 22 Active Additional Information Patient not taking.Reason: Other, Reported on 12/30/2024 mometasone-formote rol (Dulera 200) 200-5 MCG/ACT inhaler Inhale 2 puffs 2 (two) times a day. Rinse mouth with water after use to reduce aftertaste and incidence of candidiasis. Do not swallow. 13 g 1 04/17/20 22 Active Additional Information Patient not taking.Reason: Other, Reported on 12/30/2024 OLANZapine zydis (ZyPREXA) 5 MG disintegrating tablet Take 1 tablet (5 mg total) by mouth every night. 30 tablet 1 04/17/20 22 Active Additional Information Patient not taking.Reason: Other, Reported on 12/30/2024 levETIRAcetam (Keppra) 1000 MG tablet Take 1 tablet (1,000 mg total) by mouth 2 (two) times a day. 60 tablet 5 04/25/20 22 Active Additional Information Patient not taking.Reported on 12/30/2024 metoprolol succinate XL (Toprol-XL) 50 MG 24 hr tablet Take 1 tablet (50 mg) by mouth in the morning. 05/16/20 22 Active HYDROcodone-acetam inophen ([place]) 5-325 MG tablet 01/27/20 23 Active nitroglycerin (Nitrostat) 0.4 MG SL tablet 05/05/20 23 Active lacosamide (Vimpat) 150 mg tablet tablet Take 1 tablet (150 mg) by mouth 2 (two) times a day. 60 tablet 3 07/04/20 24 Active chlorthalidone (Hygroton) 25 MG tablet Take 1 tablet (25 mg) by mouth in the morning. 06/21/20 24 Active cyproheptadine (Periactin) 4 MG tablet 06/13/20 24 Active ranolazine (Ranexa) 1000 MG 12 hr tablet Take 1 tablet (1,000 mg) by mouth in the morning and 1 tablet (1,000 mg) before bedtime. 06/29/20 24 Active venlafaxine XR (Effexor-XR) 150 MG 24 hr capsule Take 1 capsule (150 mg) by mouth in the morning. 06/08/20 24 Active divalproex sprinkle (Depakote Sprinkle) [address] capsule Take 1 capsule (125 mg) by mouth in the morning and 1 capsule (125 mg) in the evening and 1 capsule (125 mg) before bedtime. 06/08/20 24 Active furosemide (Lasix) 20 MG tablet Take 1 tablet (20 mg) by mouth as needed. Active cholecalciferol (Vitamin D3) 25 MCG (1000 UT) capsule Take 1 capsule (1,000 Units) by mouth in the morning. Active prochlorperazine (Compazine) 10 MG tablet Take 1 tablet (10 mg) by mouth every 6 hours as needed for nausea or vomiting. Active sildenafil (Viagra) 50 MG tablet Take 1 tablet (50 mg) by mouth daily as needed for erectile dysfunction. Active HYDROcodone-acetam inophen ([place]) 7.5-325 MG tablet Take 7.5 tablets (56.25 mg of hydrocodone) by mouth as needed for severe pain. Active QUEtiapine (SEROquel) 25 MG tablet Take 1 tablet (25 mg) by mouth nightly. Active Active Problems Problem Noted Date Diagnosed Date Chronic tension-type headache, not intractable 0 01/28/2023 Left-sided weakness 10/22/2022 Dissection of right subclavian artery 02/17/2022 Overview (02/17/2022): Seen on angio 02/05 Vascular surgery consulted Was initially on heparin gtt, discontinued 02/12, transitioned to DAPT Follow up with repeat imaging in 3months Focal seizure 02/16/2022 Overview (02/17/2022): 02/16 overnight had focal seizures arising from right hemisphere. S/p 8mg ativan and 300mg lacosamide load per Neurology Continue antiseizure medications per Neurology: Levetiracetam 2000mg BID, VPA 1000mg BID, Lacosamide 150mg BID Continues on video EEG, per neurology plan to discontinue today Seizure precautions Management per Neurology Diabetes 02/16/2022 Overview (02/18/2022): 01/30/22: A1c 6.0 Glucose, Plasma (mg/dL) Date/Time Value 02/08/2022 0447 155 (H) Sliding Scale Insulin for glycemic control while in ICU Hold home regimen while in ICU Well controlled on current regimen COPD (chronic obstructive pulmonary disease) 10/2021 Overview (02/18/2022): Will monitor end tidal CO2 O2 titrate per NC to maintain SpO2 >88% PRN duoNebs CAD (coronary artery disease) 02/16/2022 Overview (02/16/2022): Monitor closely Continue home medications as appropriate CKD (chronic kidney disease) 02/16/2022 Overview (02/18/2022): BUN and Cr stable Avoid nephrotoxins Renally dose medications to GFR Hypertension 02/16/2022 Overview (02/17/2022): Continue current medications: Lisinopril 20mg and Metoprolol 50mg daily BP goals per Neurology Encephalitis 01/30/2022 Overview (02/18/2022): Refer to CJD and focal seizure problems below Frequent neuro checks with NIHSS Limit sedation to continue to assess mentation Brain lesion 01/30/2022 Overview (02/25/2022): Added automatically from request for surgery [id number] Thrombocytopenia Resolved Problems Problem Noted Date Diagnosed Date Resolved Date 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 02/24/2022 Overview (02/17/2022): Per Neurology 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 MRI brain w/wo: asymmetric dural enhancement of right frontal lobe with cortical edema in right posterior parietal cortex, evolution of left occipital lobe cortical enhancement PET with increased uptake in same areas seen on MRI LP at OSH negative for malignancy Repeat LP 02/11: glucose 70, protein 49, NCC 0 (NCC 2 on recheck), negative for malignancy Protein 14-3-3 and RT QuIC pending Monitor for decline in Neuro status Encounters Date Type Department Care Team Description 12/30/2024 10:00 AM EDT Consult [facility] [address] [place] [phone] Juliann Adrian APRN Stage 3a chronic kidney disease ([facility]) (Primary Dx); Abnormal results of kidney function studies; Acute kidney injury superimposed on CKD ([facility]); Chronic kidney disease-mineral and bone disorder 12/30/2024 Travel from Last 3 Months Immunizations Immunization Administration Dates Next Due Influenza, high-dose, quadrivalent 09/06/2021, Influenza, injectable, quadrivalent 12/02/2019 Influenza, injectable, quadrivalent, preservativ e free 10/25/2018 Influenza, seasonal, injectable 10/30/2017 Pneumococcal Conjugate PCV 13 12/02/2019 Pneumococcal Polysaccharide PPV23 01/23/2021 Family History Medical History Relation Name Comments Stroke Other 1 Heart attack Other 2 Relation Name Status Comments Other 1 Other 2 Social History Tobacco Use Types Packs/Day Years Used Date Smoking Tobacco: Former Cigarettes Smokeless Tobacco: Never Alcohol Use Standard Drinks/Week Comments Not Currently 0 (1 standard drink = 0.6 oz pur e alcohol) Sex and Gender Information Value Date Recorded Sex Assigned at Male 01/30/2022 11:52 PM EDT Legal Sex Male 7:16 PM EDT Gender Identity Male 01/30/2022 11:52 PM EDT Sexual Orientation Not on file Last Filed Vital Signs Vital Sign Reading Time Taken Comments Blood Pressure 131/74 12/30/2024 9:49 AM EDT Pulse 71 12/30/2024 9:49 AM EDT Temperature 36.3 C (97.3 F) 09/29/2022 9:05 AM EST Respiratory Rate 18 12/30/2024 9:49 AM EDT Oxygen Saturation 99% 12/30/2024 9:49 AM EDT Inhaled Oxygen Concentration - - Weight 89.4 kg (197 lb) 12/30/2024 9:49 AM EDT Height 170.2 cm (5' 7 ) 12/30/2024 9:49 AM EDT Body Mass Index 30.85 12/30/2024 9:49 AM EDT Plan of Treatment Upcoming Encounters Date Type Department Care Team (Late st Contact Info) Description 05/12/2025 10:40 AM EDT Office Visit [facility] [address] [place] [phone] Juliann Adrian, LANE ATTENDANT [address] [facility] [address] [place] [address] Health Maintenance Due Date Last Done Comments [facility]-Depression Screening 1954 [facility]-Medicare Annual Wellness (AWV) 1955 [facility]-Infant/Child/Adol SDOH Screenings 1954 Diabetes: Dental Exam 1964 [facility]- SDOH Screenings 1972 [facility]-Adult SDOH Screenings 1972 [facility]-DTaP,Tdap,and Td Vaccines (1 - Tdap) 1973 CT Colonography 1999 Colonoscopy 1999 FIT-DNA 1999 FIT 1999 FOBT 1999 Sigmoidoscopy 1999 [facility]-Colorectal Cancer Screening 1999 [facility]-Zoster Vaccines (1 of 2) 2004 [facility]-RSV Vaccine: 60+ Years or (1 - Risk 60-74 years 1-dose series) 2014 [facility]-Abdominal Aortic Aneurysm (AAA) Screening 2019 [facility]-Diabetes: Hemoglobin A1C 02/25/202307/2022, 01/30/2022, 10/15/2015 [facility]-ABGOP-16 Vaccine ( season) 2024 07/21/2022, 09/09/2021, 01/16/2021, Additional history exists [facility]-Pneumococcal Vaccine: 50+ Years Completed 01/23/2021, 12/02/2019 [facility]-Hepatitis C Screening Completed 03/19/2022 [facility]-Influenza Vaccine Completed 11/03/2024 , 10/20/2023, 10/29/2022, Additional history exists [facility]-Obesity Intervention Completed 025, 08/05/2023, 02/26/2023, Additional history exists HPV Vaccines Aged Out No longer eligi ble based on patient's age to complete this topic [facility]-HIB Vaccines Aged Out No longer e ligible based on patient's age to complete this topic [facility]-Hepatitis A Vaccines Aged Out No longer eligible based on patient's age to complete this topic [facility]-IPV Vaccines Aged Out No longer e ligible based on patient's age to complete this topic [facility]-Rotavirus Vaccines Aged Out No lo nger eligible based on patient's age to complete this topic Medical Devices Implanted Type Area Infection Preventionist Device Identifier Shelf Expiration Date Model / Serial / Lot Graft Collagen 5x5cm Durepair Mater - [id number] Implanted:Qty: 1 on 02/26/2022 by Martin Banegas MD at [facility] [employer] (Tissue [id number] 07/18/2023 [id number] / / [id number] Cement Bone Pneum Mix 5cc Strl - [id number] Implanted:Qty: 1 on 02/26/2022 by Martin Banegas MD at [facility]-[id number] 12/16/2022 [id number] .[id number] / / [id number] Procedures Procedure Name Priority Date/Time Associated Diagnosis Comments HEPATITIS C ANTIBODY - ED W/REFLEX TO HCV QUANT PCR STAT 03/19/2022 10:48 AM EDT HEMOGLOBIN A1C Add-On 01/30/2022 8:46 PM EDT from Last 3 Months or Most Recently Relevant to Health Maintenance Results * [place] Hepatitis C Antibody (03/19/2022 10:48 AM EDT) Hepatitis C Antibody Negative Negative 03/19/2022 12:52 PM EDT [facility] Blood Venous blood specimen / Unknown Venipuncture / Unknown 03/19/2022 10:48 AM EDT 03/19/2022 11:14 AM EDT us Giles Gonzales MD LAB BLOOD ORDERABLES Radha alves Result [facility] [address] [place] [phone] * (ABNORMAL) Hemoglobin A1c (01/30/2022 8:46 PM EDT) Hemoglobin A1c 6.0(H) <5.7 % 01/31/2022 4:03 PM EDT [facility] Blood Venous blood specimen / Unknown Venipuncture / Unknown 01/30/2022 8:46 PM EDT 01/30/2022 8:54 PM EDT Narrative [facility] - 01/31/2022 4:03 PM EDT HA1C Interpretive Data: Diagnosis of Diabetes: Diabetic > or = 6.5% Pre-diabetic 5.7 to 6.4% Non-diabetic < or = 5.6% Glycemic Targets for Type I and Type II Diabetics: Non- Adults <7.0% Adults <6.0% Children and Adolescents <7.5% Source: [place] [employer]. Standards of medical care in diabetes,2017. Diabetes Care.2017:40 (suppl 1):S1-S135. HbA1c assay performed by an ion-exchange chromatography method that is certified traceable to the DCCT. Omid Steven MD LAB BLOOD ORDERABLES Final Result [facility] [address] [place] [phone] from Last 3 Months or Most Recently Relevant to Health Maintenance Insurance [facility] MEDICARE [place] [id number] Advance Directives * DNR/DNI (Latest Code Status on File) Date Activated Date Inactivated Comments 03/19/2022 2:28 PM 04/17/2022 1:09 PM Question Answer Comments DNR determined on/before admission date? Yes Patient has decision-making capacity? No Healthcare Surrogate: Adult child of the patient Name of Healthcare Surrogate: Elias Maldonado * DNR/DNI Date Activated Date Inactivated Comments 02/18/2022 2:32 PM 03/11/2022 4:37 PM Pts son maite rmed with siblings that they would like to go with hospice care and make pt DNR/DNI Question Answer Comments DNR determined on/before admission date? No Patient has decision-making capacity? No Healthcare Surrogate: Adult child of the patient Name of Healthcare Surrogate: Elias Maldonado * DNR - Ok to intubate Date Activated Date Inactivated Comments 02/17/2022 3:29 PM 02/18/2022 2:32 PM Elias has a goo d understanding of his fathers progressive dementia. He does not want his father to have resuscitation or intubation at the end of life, however in the temporary setting of increased seizures he is ok to intubate with the acknowledgement that he would not be sustained on a ventilator residential. Question Answer Comments DNR determined on/before admission date? No Patient has decision-making capacity? No Healthcare Surrogate: Adult child of the patient Name of Healthcare Surrogate: Elias Maldonado * DNR/DNI Date Activated Date Inactivated Comments 02/14/2022 2:57 PM 02/17/2022 3:29 PM Elias has a go od understanding of his fathers progressive dementia. He does not want his father to have resuscitation or intubation at the end of life. Question Answer Comments DNR determined on/before admission date? No Patient has decision-making capacity? No Healthcare Surrogate: Adult child of the patient Name of Healthcare Surrogate: Elias Maldonado Care Teams Mailer Apprentice Relationship Specialty Start Date End Date Kaveh Ryan MD [address] [facility] [place] [address] PCP - General 05/28/22 Kalli Shipley MD [address] [place] [address] Service Attending Neurology 05/28/22
--- OUTSIDE RECORDS SUMMARY | 2025-03-31 23:43 | XMS_ITS | Clinical Summary ---
Author Organization [employer] Address [address] [place] [address] Care Team Providers Care [facility] Counselor Name Role Phone Unavailable Primary Care Provider [...]
--- OUTSIDE RECORDS SUMMARY | 2025-03-31 23:43 | XMS_ITS | Encounter Summary ---
Author Organization [employer] Address [address] [facility] [place] [address] Care Team Providers Care Manager Trade Name Role Phone Unavailable Primary Care Provider Unavailabl e Encounter Details Date Type Department Care Team (Late st Contact Info) Description 01/08/[address] [facility] [place] [address] [place] [address] ProviderCarlos MD [facility] [place] [address] Social History Tobacco Use Types [...] Conversion Note - Historical ProviderMD - 01/08/2022 10:37 AM CDT Patient: INEZ SHOOK JR Age: 66 years Sex: Male : 1955 Associated Diagnoses: None Author: ANA TORRES, Results Review Admission Date: Admit Date 01/03/2022 20:35 Discharge Date: 01/08/2022 Discharge Information discharge to home Physical Examination VS/Measurements Vitals Signs (last 24 hrs) Last Charted Minimum Maximum Temp 97.7 (JAN 08 07:00) 97.7 (JAN 08 07:00) 98.1 (JAN 07 11:04) Apical HR 63 (JAN 08 09:03) 63 (JAN 08 09:03) 64 (JAN 07 11:01) Mon HR 63 (JAN 08 07:00) 63 (JAN 08 03:40) 80 (JAN 07 19:49) Resp Rate 18 (JAN 08 07:00) 16 (JAN 08 03:40) 18 (JAN 07 11:04) SBP H 161 (JAN 08 07:00) 130 (JAN 07 11:04) H 161 (JAN 08 07:00) DBP 86 (JAN 08 07:00) 71 (JAN 07 11:04) 86 (JAN 08 07:00) MAP 116 (JAN 08 07:00) 85 (JAN 07 11:04) 116 (JAN 08 07:00) SpO2 95 (JAN 08 07:00) 94 (JAN 07 23:00) 97 (JAN 08 04:41) on 01/08 he is awake, alert and pleasant, heart RRR, lungs CTA bilaterally ,abd soft, no le edema. Hospital Course Significant labs/imaging: No Radiology Results Found CBC Results (Current Encounter/Past 24 Hours) WBC 7.2 K/uL 01/08/2022 09:08 Hct 29.3 % LOW 01/08/2022 09:08 Hgb 9.8 g/dL LOW 01/08/2022 09:21 Platelet Count 207 K/uL 01/08/2022 09:08 CMP Results (Current Encounter/Past 24 Hours) eGFR 14 mL/min/1.73m2 LOW 01/08/2022 09:26 Bun/Creatinine 21.0 [place] 01/08/2022 09:26 eGFR NonAfrican 12 mL/min/1.73m2 LOW 01/08/2022 09:26 Creatinine Level 4.90 mg/dL [place] 01/08/2022 09:26 Sodium Level 143 mmol/L 01/08/2022 09:26 Potassium Level 3.7 mmol/L 01/08/2022 09:26 Chloride Level 109 mmol/L 01/08/2022 09:26 Carbon Dioxide Level 22 mmol/L 01/08/2022 09:26 Anion Gap 16 01/08/2022 09:26 Blood Urea Nitrogen 103 mg/dL CRIT 01/08/2022 09:26 Glucose Level 137 mg/dL [place] 01/08/2022 09:26 Albumin Level 2.5 Gram/dL LOW 01/07/2022 07:26 Calcium Level 8.0 mg/dL LOW 01/08/2022 09:26 01/04 renal ultrasound: RENAL ULTRASOUND HISTORY: Renal failure . PROCEDURE: Ultrasound images of the kidneys were obtained. FINDINGS: Limited images of the liver parenchyma demonstrate normal echogenicity . The right kidney measures 12 cm in length. It is normal echogenicity . There is no hydronephrosis . The left kidney measures 13 cm in length. It is normal echogenicity . There is no hydronephrosis . IMPRESSION: Normal renal ultrasound . Consultants: dr solomon/dr starks- nephrology Procedures: none Problem List: ZAHRA with metabolic acidosis, improving. - baseline renal function, per ER note, with creatinine of 0.9 on 11/08. - added po bicarb on 01/04, acidosis improved, will not dc on bicarb. -renal us nml - nephrology consult appreciated - creatinine slowly improving with iv fluids initial creatinine of 11 down to 4.9 on day of discharge - hold lasix/lisinopril/metformin - ER CT Abd showed no hydronephrosis or stones uremic encephalopathy - from above - improved copd with acute exacerbation from rhinovirus, poa - wean solumedrol to prednisone 40 mg while in hospital, no steroids needed on dc - continue nebs and doxy - stopped smoking in 2014 INOCENTE - noncompliant with cpap at home htn - hold lisinopril, continue home metoprolol, start hydralazine on 01/08 chf, type unknown - continue aspirin, statin, plavix. type 2 dm - a1c 6.7 - [facility]: Mr. Shook is a 66 year old male with history of CHF type unknown, HTN, INOCENTE, COPD who presented to outside hospital with one week of nausea and vomiting, there he was found ot have creatinine over 11 and was sent to [facility] for nephrology evaluation. Here IV fluids were started and po bicarb, his home lasix and lisinopril were held. Renal ultrasound here was normal. P-ANCA, ALEXIS and c-anca here were normal. He had slow improvement of creatinine down to 4.9 on day of discharge. He also had rhinovirus copd exacerbation on admission, he was given solumedrol which was quickly weaned to prednisone here and wheezing has resolved. His creatinine is still 4.9 at time of discharge I have instructed him to STOP his metformin, lasix, lisinopril, gabapentin 600 mg po tid until he follows up with PCP next week, i gave him a lab slip to see have BMP drawn next week with results to pcp prior to his 01/15 appointment. I did give him gabapentin 100 bid for a week to prevent gabapentin withdrawal and will give him hydralazine for Blood pressure control on dc. Discharge Follow Up HALLIE SOLOMON - 03:15 PM SAMINA BONILLA - 03:15 PM Discharge Activity Activity as tolerated Discharge Plan Discharge Summary Plan Discharge Status: improved. Discharge instructions given: to patient. Prescriptions: Home Medications (16) Active acetaminophen-oxyCODONE 325 mg-10 mg oral tablet 1 Tab, PRN, Oral, Q6H aspirin 81 mg oral tablet, chewable 81 mg = 1 Tab, Oral, Daily atorvastatin 80 mg oral tablet , Oral, Daily Breo Ellipta 100 mcg-25 mcg inhalation powder 1 Puff, Inhalation, Daily clopidogrel 75 mg oral tablet , Oral, Daily furosemide 40 mg oral tablet 40 mg = 1 Tab, Oral, BID DO NOT RESTART UNTIL AFTER YOU SEE YOUR PRIMARY CARE DOCTOR gabapentin 100 mg oral capsule 200 mg = 2 Cap, Oral, BID gabapentin 600 mg oral tablet 600 mg = 1 Tab, Oral, TID DO NOT RESTART UNTIL AFTER YOU SEE YOUR PRIMARY CARE DOCTOR glipiZIDE 10 mg oral tablet , Oral, Daily hydrALAZINE 25 mg oral tablet 25 mg = 1 Tab, Oral, BID lab draw See Instructions- BMP drawn on 01/13 with results to PCP and nephrology lisinopril 20 mg oral tablet 20 mg = 1 Tab, Oral, BID DO NOT RESTART UNTIL AFTER YOU SEE YOUR PRIMARY CARE DOCTOR metFORMIN 500 mg oral tablet 500 mg = 1 Tab, Oral, BID DO NOT RESTART UNTIL AFTER YOU SEE YOUR PRIMARY CARE DOCTOR metoprolol succinate 50 mg oral capsule, extended release , Oral, Daily Vitamin D3 25 mcg (1000 intl units) oral tablet 25 mcg = 1 Tab, Oral, Daily Vitamin D3 50,000 units oral capsule 1,250 mcg = 1 Cap, Oral, Weekly . Time spent on discharge: 35 min Ana [facility]abor Hospitalist Electronically signed by Jayde Babin Conversion Quality Assurance Test Program Manager Cerner at 02/02/2023 1:59 PM CDT documented in this encounter Plan of Treatment Not on file documented as of this encounter Visit Diagnoses Not on filedocumented in this encounter
--- OUTSIDE RECORDS SUMMARY | 2025-03-31 23:43 | XMS_ITS | Encounter Summary ---
Author Organization [employer] Address [address] [place] [address] Care Team Providers Care Global Marketing Specialist Name Role Phone Unavailable Primary Care Provider Unavailabl e Encounter Details Date Type Department Care Team (Late st Contact Info) Description 01/08/2022 Transcribed Document [facility] [place] [address] [place] [address] ProviderCarlos MD [facility] [place], [place] [id number] Social History Tobacco Use Types Packs/Day Years Used Date Smoking Tobacco: Never Assessed Sex and Gender Information Value Date Recorded Sex Assigned at Male 04/15/2022 4:33 PM CDT Legal Sex Male 4:33 PM CDT Gender Identity Male 04/15/2022 4:33 PM CDT Sexual Orientation Not on file documented as of this encounter Miscellaneous Notes * [employer]ner Conversion Note - Historical ProviderMD - 01/08/2022 10:30 AM CDT Patient: INEZ MALDONADO JR Age: 66 years Sex: Male : 1955 Associated Diagnoses: None Author: BARBRA HANNA MD-NEP Subjective Patient is feeling better, he started having swelling in the lower extremities and IV fluids will be stopped, his serum creatinine continues to improve Health Status Allergies: Allergic Reactions (Selected) Severity [...] (See Comment) heparin: 5,000 Units, SubCutaneous, Q8HInt hydrALAZINE: 25 mg, Oral, BID insulin lispro sliding scale: Scale A:, SubCutaneous, [...] Oral, Weekly , Medications (25) Active Scheduled: (15) albuterol-ipratropium inh 3 mL 3 mL, Nebulized [...] inj 5,000 Units 1 mL, SubCutaneous, Q8HInt hydrALAZINE 25 mg tab 25 mg 1 Tab, Oral, BID insulin lispro 1 unit/0.01 mL inj Scale A:, SubCutaneous, AC and at Bedtime metoprolol succinate XL 50 mg tab 50 mg 1 Tab, Oral, Daily predniSONE 20 mg tab 40 mg 2 Tab, Oral, Daily senna 8.6 mg tab 8.6 mg 1 Tab, Oral, BID sodium bicarbonate 650 mg tab 1,300 mg 2 Tab, Oral, TID Continuous: (0) PRN: (10) acetaminophen 325 mg tab 650 [...] Medical At risk for violence / IMO 98632702 / Confirmed History of obstructive sleep apnea / IMO [id number] / Confirmed, Active Problems (8) At risk [...] 116 (JAN 08 07:00) SpO2 95 (JAN 08:) 94 (JAN 07 23:00) 97 (JAN 08 04:41) General: Alert and oriented, No acute distress. [...] Output Totals Last 24 Hours (7a-7a) Intake (2 Events) Oral Intake (360 mL) Output (2 Events) Urine Voided (Volume) (950 mL) Input Total: 360 mL Output Total: 950 mL Balance: -590 mL Labs (Last four charted values) WBC 7.2 (JAN 08) 8.5 (JAN 06) 5.3 (JAN 05) 6.7 (JAN 04) HB L 9.8 (JAN 08) L 9.8 (JAN 06) L 11.2 (JAN 05) L 11.4 (JAN 04) HCT L 29.3 (JAN 08) L 29.4 (JAN 06) L 32.8 (JAN 05) L 36.4 (JAN 04) Plt 207 (JAN 08) 217 (JAN 06) 228 (JAN 05) 206 (JAN 04) Na 143 (JAN 08) 138 (JAN 07) L 134 (JAN 06) 136 (JAN 05) K 3.7 (JAN 08) 4.3 (JAN 07) 4.0 (JAN 06) 4.7 (JAN 05) Cl 109 (JAN 08) 106 (JAN 07) 103 (JAN 06) 103 (JAN 05) CO2 22 (JAN 08) 22 (JAN 07) L 19 (JAN 06) 21 (JAN 05) BUN C 103 (JAN 08) C 111 (JAN 07) C 109 (JAN 06) C 108 (JAN 05) Cr H 4.90 (JAN 08) H 7.00 (JAN 07) H 8.60 (JAN 06) H 9.90 (JAN 05) Glu R H 137 (JAN 08) H 131 (JAN 07) H 161 (JAN 06) H 159 (JAN 05) Ca L 8.0 (JAN 08) L 8.2 (JAN 07) L 8.1 (JAN 06) 8.7 (JAN 05) Lactic 1.7 (JAN 04) PT 10.6 (JAN [...] are all normal. His serum creatinine is improving down to 4.9 milligrams, I will discontinue IV fluids by now due to worsening peripheral edema. Patient is eager to go home, at this point we can continue to follow up as outpatient after discharge. documented in this encounter Plan of Treatment Not on file documented as of this encounter Visit Diagnoses Not on filedocumented in this encounter
--- OUTSIDE RECORDS SUMMARY | 2025-03-31 23:43 | XMS_ITS | Encounter Summary ---
Author Organization [employer] Address [address] [facility] [place] [address] Care Team Providers Care Vegetables Cook Name Role Phone Unavailable Primary Care Provider Unavailabl e Encounter Details Date Type Department Care Team (Late st Contact Info) Description 01/08/2022 Transcribed Document [facility] [address] [place] [address] ProviderCarlos MD [address] [place] [id number] Social History Tobacco Use Types Packs/Day Years Used Date Smoking Tobacco: Never Assessed Sex and Gender Information Value Date Recorded Sex Assigned at Male 04/15/2022 4:33 PM CDT Legal Sex Male 4:33 PM CDT Gender Identity Male 04/15/2022 4:33 PM CDT Sexual Orientation Not on file documented as of this encounter Miscellaneous Notes * Cerner Conversion Note - Carlos ProviderMD - 01/08/2022 11:05 AM CDT [facility] [place] [address] INEZ SHOOK JR :1955 Visit Time:01/03/2022 Your Visit Summary Your Care Team Admitting Physician - LUISA WILSON MD-INT Attending Physician - ANA TORRES DO Primary Care Physician - SINCERE BONILLA (REF)MD-FAM Referring Physician - SAMY, SELF REFERRED Your Diagnosis Acute renal failure HTN (hypertension) CHF with unknown LVEF COPD (chronic obstructive pulmonary disease) Diabetes mellitus type 2, noninsulin dependent History of obstructive sleep apnea Uremic encephalopathy These Are Your Goals Patient Discharge Goal Patient Discharge Goal: Home Discharge Vitals Temperature 36.5 ??C Heart Rate 63 Heart Rate 63 Respiratory Rate 18 Blood Pressure 161/86 What to do next Instructions From Your Care Team HOLD the following medications: HOLD Lasix (furosemide) HOLD Gabapentin 600 mg tablets --- New, lower dose RX has been provided until your kidney function improves. HOLD Lisinopril HOLD Metformin Discharge Activity: Discharge Activity: Activity as tolerated Diet: limits all liquids to less than 2L of fluid a day, Discharge Diet: Resume usual diet as tolerated Follow-Up Appointments Follow Up with HALLIE SANCHEZ When 01/22/2022 03:15 PM EDT Comments NEPH appt made, Bring discharge instructions with you Where: [address] [place] [address]- Business (1) Follow Up with SINCERE BONILLA When 01/15/2022 03:15 PM EDT Comments PCP appt made, Bring discharge instructions with you Where: [address] [place] [address]- Medications What How Much When Instructions Next Dose hydrALAZINE (hydrALAZINE 25 mg oral tablet) 1 Tablet(s) Oral Two Times A Day Duration: 30 Day(s) Pickup at [facility] this evening Non Formulary (lab draw) See instructions BMP drawn on 2021 with results to PCP, sincere Martines and Dieter Sanchez. diagnosis ZAHRA. Printed Prescription as directed furosemide (furosemide 40 mg oral tablet) 1 Tablet(s) Oral Two Times A Day Duration: 30 Day(s) DO NOT RESTART UNTIL AFTER YOU SEE YOUR PRIMARY CARE DOCTOR as directed gabapentin (gabapentin 100 mg oral capsule) 2 Capsule(s) Oral Two Times A Day Duration: 7 Day(s) New Dose. 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 Pickup at [facility] this evening gabapentin (gabapentin 600 mg oral tablet) 1 Tablet(s) Oral Three Times A Day DO NOT RESTART UNTIL AFTER YOU SEE YOUR PRIMARY CARE DOCTOR as directed lisinopril (lisinopril 20 mg oral tablet) 1 Tablet(s) Oral Two Times A Day DO NOT RESTART UNTIL AFTER YOU SEE YOUR PRIMARY CARE DOCTOR as directed metFORMIN (metFORMIN 500 mg oral tablet) 1 Tablet(s) Oral Two Times A Day DO NOT RESTART UNTIL AFTER YOU SEE YOUR PRIMARY CARE DOCTOR as directed acetaminophen-oxyCODONE (acetaminophen-oxyCODONE 325 mg-10 mg oral tablet) 1 Tablet(s) Oral Every 6 Hours as needed for for pain as needed aspirin (aspirin 81 mg oral tablet, chewable) 1 Tablet(s) Oral Every Day tomorrow atorvastatin (atorvastatin 80 mg oral tablet) Oral Every Day tomorrow cholecalciferol (Vitamin D3 25 mcg (1000 intl units) oral tablet) 1 Tablet(s) Oral Every Day resume home schedule cholecalciferol (Vitamin D3 50,000 units oral capsule) 1 Capsule(s) Oral Weekly resume home schedule clopidogrel (clopidogrel 75 mg oral tablet) Oral Every Day tomorrow fluticasone-vilanterol (Breo Ellipta 100 mcg-25 mcg inhalation powder) 1 Puff(s) Inhalation Every Day resume home schedule glipiZIDE (glipiZIDE 10 mg oral tablet) Oral Every Day resume home schedule metoprolol (metoprolol succinate 50 mg oral capsule, extended release) Oral Every Day tomorrow Pharmacy Information On License Of [facility] [place]: [address] [place], [place] [id number] [phone] Take your medications faithfully. Do NOT skip medication. Do NOT stop taking medications without the direction of a physician. Carry a list of your medications with you at all times, and take this medication list with you to your first follow up visit. Report any side effects. Avoid herbal remedies unless discussed with your physician. As part of your treatment plan, your physician may have prescribed a limited course of a controlled substance. This medication may be given to help people with moderate or severe pain or for other medical conditions, but there are risks involved with treatment. Common side effects may include nausea, constipation, drowsiness, sweating, itching, dry mouth, and rash. More serious side effects may include cognitive and motor impairment, like problems with thinking, concentrating, alertness, and movement (e.g. slowed reflexes), and driving and operating heavy machinery can be dangerous. It is important for you to talk to your physician if you have these side effects or questions. These controlled substances can produce physical dependence and be habit-forming if taken for an extended period of time, which means that the body has gotten used to them and may experience withdrawal symptoms if they are abruptly stopped. Withdrawal symptoms can include runny nose, sweating, goose bumps, diarrhea, abdominal cramping, rapid heartbeat, difficulty sleeping, and nervousness. Please dispose of unused and medications per your retail pharmacy guidance. Allergies Imdur Immunizations This Visit No Immunizations Found Stroke/TIA Instructions Individualized Stroke Risk Factors Individualized Stroke Risk Factors *Q: Congestive heart failure, Diabetes, Hypertension/High blood pressure Stroke/TIA Signs/Symptoms to Report Immediately: Sudden onset difficulty speaking, Sudden onset difficulty understanding speech, Sudden onset change in vision, Sudden onset weakness particulary on one side of the body, Sudden onset numbness/tingling, Sudden severe headache, Sudden dizziness or trouble with gait, Call : EMS activation is crucial Mutually Agreed Upon Goals My LDL Level: My LDL Level: Education Materials Acute Kidney Injury, Adult Acute kidney injury is a sudden worsening of kidney function. The kidneys are organs that have several jobs. They filter the blood to remove waste products and extra fluid. They also maintain a healthy balance of minerals and hormones in the body, which helps control blood pressure and keep bones strong. With this condition, your kidneys do not do their jobs as well as they should. This condition ranges from mild to severe. Over time, it may develop into long-lasting (chronic) kidney disease. Early detection and treatment may prevent acute kidney injury from developing into a chronic condition. What are the causes? Common causes of this condition include: ??? A problem with blood flow to the kidneys. This may be caused by: ? Low blood pressure (hypotension) or shock. ? Blood loss. ? Heart and blood vessel (cardiovascular) disease. ? Severe taylor. ? Liver disease. ??? Direct damage to the kidneys. This may be caused by: ? Certain medicines. ? A kidney infection. ? Poisoning. ? Being around or in contact with toxic substances. ? A surgical wound. ? A hard, direct hit to the kidney area. ??? A sudden blockage of urine flow. This may be caused by: ? Cancer. ? Kidney stones. ? An enlarged prostate in males. What increases the risk? You are more likely to develop this condition if you: ??? Are older than age 65. ??? Are female. ??? Are hospitalized, especially if you are in critical condition. ??? Have certain conditions, such as: ? Chronic kidney disease. ? Diabetes. ? Coronary artery disease and heart failure. ? Pulmonary disease. ? Chronic liver disease. What are the signs or symptoms? Symptoms of this condition may not be obvious until the condition becomes severe. Symptoms of this condition can include: ??? Tiredness (lethargy) or difficulty staying awake. ??? Nausea or vomiting. ??? Swelling (edema) of the face, legs, ankles, or feet. ??? Problems with urination, such as: ? Pain in the abdomen, or pain along the side of your stomach (flank). ? Producing little or no urine. ? Passing urine with a weak flow. ??? Muscle twitches and cramps, especially in the legs. ??? Confusion or trouble concentrating. ??? Loss of appetite. ??? Fever. How is this diagnosed? Your health care provider can diagnose this condition based on your symptoms, medical history, and a physical exam. You may also have other tests, such as: ??? Blood tests. ??? Urine tests. ??? Imaging tests. ??? A test in which a sample of tissue is removed from the kidneys to be examined under a microscope (kidney biopsy). How is this treated? Treatment for this condition depends on the cause and how severe the condition is. In mild cases, treatment may not be needed. The kidneys may heal on their own. In more severe cases, treatment will involve: ??? Treating the cause of the kidney injury. This may involve changing any medicines you are taking or adjusting your dosage. ??? Fluids. You may need specialized IV fluids to balance your body's needs. ??? Having a catheter placed to drain urine and prevent blockages. ??? Preventing problems from occurring. This may mean avoiding certain medicines or procedures that can cause further injury to the kidneys. In some cases, treatment may also require: ??? A procedure to remove toxic wastes from the body (dialysis or continuous renal replacement therapy, CRRT). ??? Surgery. This may be done to repair a torn kidney or to remove the blockage from the urinary system. Follow these instructions at home: Medicines ??? Take guen-ppf-fdmhlem and prescription medicines only as told by your health care provider. ??? Do not take any new medicines without your health care provider's approval. Many medicines can worsen your kidney damage. ??? Do not take any vitamin and mineral supplements without your health care provider's approval. Many nutritional supplements can worsen your kidney damage. Lifestyle ??? If your health care provider prescribed changes to your diet, follow them. You may need to decrease the amount of protein you eat. ??? Achieve and maintain a healthy weight. If you need help with this, ask your health care provider. ??? Start or continue an exercise plan. Try to exercise at least 30 minutes a day, 5 days a week. ??? Do not use any products that contain nicotine or tobacco, such as cigarettes, e-cigarettes, and chewing tobacco. If you need help quitting, ask your health care provider. General instructions ??? Keep track of your blood pressure. Report changes in your blood pressure as told by your health care provider. ??? Stay up to date with your vaccines. Ask your health care provider which vaccines you need. ??? Keep all follow-up visits as told by your health care provider. This is important. Where to find more information ??? [place] Association of Kidney Patients: www.aakp.org ??? National Kidney Foundation: www.kidney.org ??? [place] Kid[employer]: www.akfinc.org ??? Life Options Rehabilitation Program: ? www.lifeoptions.org ? www.kidneyschool.org Contact a health care provider if: ??? Your symptoms get worse. ??? You develop new symptoms. Get help right away if: ??? You develop symptoms of worsening kidney disease, which include: ? Headaches. ? Abnormally dark or light skin. ? Easy bruising. ? Frequent hiccups. ? Chest pain. ? Shortness of breath. ? End of menstruation in women. ? Seizures. ? Confusion or altered mental status. ? Abdominal or back pain. ? Itchiness. ??? You have a fever. ??? Your body is producing less urine. ??? You have pain or bleeding when you urinate. Summary ??? Acute kidney injury is a sudden worsening of kidney function. ??? Acute kidney injury can be caused by problems with blood flow to the kidneys, direct damage to the kidneys, and sudden blockage of urine flow. ??? Symptoms of this condition may not be obvious until it becomes severe. Symptoms may include edema, lethargy, confusion, nausea or vomiting, and problems passing urine. ??? This condition can be diagnosed with blood tests, urine tests, and imaging tests. Sometimes a kidney biopsy is done to diagnose this condition. ??? Treatment for this condition often involves treating the underlying cause. It is treated with fluids, medicines, diet changes, dialysis, or surgery. This information is not intended to replace advice given to you by your health care provider. Make sure you discuss any questions you have with your health care provider. Document Revised: 08/14/2020 Document Reviewed: 08/14/2020 [employer] Patient Education ?? 2020 [employer]. Heart Failure Action Plan A heart failure action plan helps you understand what to do when you have symptoms of heart failure. Follow the plan that was created by you and your health care provider. Review your plan each time you visit your health care provider. Red zone These signs and symptoms mean you should get medical help right away: ??? You have trouble breathing when resting. ??? You have a dry cough that is getting worse. ??? You have swelling or pain in your legs or abdomen that is getting worse. ??? You suddenly gain more than 2???3 lb (0.9???1.4 kg) in a day, or more than 5 lb (2.3 kg) in one week. This amount may be more or less depending on your condition. ??? You have trouble staying awake or you feel confused. ??? You have chest pain. ??? You do not have an appetite. ??? You pass out. If you experience any of these symptoms: ??? Call your local emergency services (911 in the [place] right away or seek help at the emergency department of the nearest hospital. Yellow zone These signs and symptoms mean your condition may be getting worse and you should make some changes: ??? You have trouble breathing when you are active or you need to sleep with extra pillows. ??? You have swelling in your legs or abdomen. ??? You gain 2???3 lb (0.9???1.4 kg) in one day, or 5 lb (2.3 kg) in one week. This amount may be more or less depending on your condition. ??? You get tired easily. ??? You have trouble sleeping. ??? You have a dry cough. If you experience any of these symptoms: ??? Contact your health care provider within the next day. ??? Your health care provider may adjust your medicines. Green zone These signs mean you are doing well and can continue what you are doing: ??? You do not have shortness of breath. ??? You have very little swelling or no new swelling. ??? Your weight is stable (no gain or loss). ??? You have a normal activity level. ??? You do not have chest pain or any other new symptoms. Follow these instructions at home: ??? Take mhyf-qga-iewflis and prescription medicines only as told by your health care provider. ??? Weigh yourself daily. Your target weight is lb ( kg). ? Call your health care provider if you gain more than lb ( kg) in a day, or more than lb ( kg) in one week. ??? Eat a heart-healthy diet. Work with a diet and compensation specialist (dietitian) to create an eating plan that is best for you. ??? Keep all follow-up visits as told by your health care provider. This is important. Where to find more information ??? [place] Heart Association: www.heart.org Summary ??? Follow the action plan that was created by you and your health care provider. ??? Get help right away if you have any symptoms in the Red zone. This information is not intended to replace advice given to you by your health care provider. Make sure you discuss any questions you have with your health care provider. Document Revised: 09/17/2018 Document Reviewed: 11/14/2017 [employer] Patient Education ?? 2020 [employer]. Chronic Obstructive Pulmonary Disease Exacerbation Chronic obstructive pulmonary disease (COPD) is a long-term (chronic) lung problem. In COPD, the flow of air from the lungs is limited. COPD exacerbations are times that breathing gets worse and you need more than your normal treatment. Without treatment, they can be life threatening. If they happen often, your lungs can become more damaged. If your COPD gets worse, your doctor may treat you with: ??? Medicines. ??? Oxygen. ??? Different ways to clear your airway, such as using a mask. Follow these instructions at home: Medicines ??? Take fbon-hxv-jjsumku and prescription medicines only as told by your doctor. ??? If you take an antibiotic or steroid medicine, do not stop taking the medicine even if you start to feel better. ??? Keep up with shots (vaccinations) as told by your doctor. Be sure to get a yearly (annual) flu shot. Lifestyle ??? Do not smoke. If you need help quitting, ask your doctor. ??? Eat healthy foods. ??? Exercise regularly. ??? Get plenty of sleep. ??? Avoid tobacco smoke and other things that can bother your lungs. ??? Wash your hands often with soap and water. This will help keep you from getting an infection. If you cannot use soap and water, use hand material engineer. ??? During flu season, avoid areas that are crowded with people. General instructions ??? Drink enough fluid to keep your pee (urine) clear or pale yellow. Do not do this if your doctor has told you not to. ??? Use a cool mist machine (vaporizer). ??? If you use oxygen or a machine that turns medicine into a mist (nebulizer), continue to use it as told. ??? Follow all instructions for rehabilitation. These are steps you can take to make your body work better. ??? Keep all follow-up visits as told by your doctor. This is important. Contact a doctor if: ??? Your COPD symptoms get worse than normal. Get help right away if: ??? You are short of breath and it gets worse. ??? You have trouble talking. ??? You have chest pain. ??? You cough up blood. ??? You have a fever. ??? You keep throwing up (vomiting). ??? You feel weak or you pass out (faint). ??? You feel confused. ??? You are not able to sleep because of your symptoms. ??? You are not able to do daily activities. Summary ??? COPD exacerbations are times that breathing gets worse and you need more treatment than normal. ??? COPD exacerbations can be very serious and may cause your lungs to become more damaged. ??? Do not smoke. If you need help quitting, ask your doctor. ??? Stay up-to-date on your shots. Get a flu shot every year. This information is not intended to replace advice given to you by your health care provider. Make sure you discuss any questions you have with your health care provider. Document Revised: 09/17/2018 Document Reviewed: 11/09/2017 [employer] Patient Education ?? 2020 [employer] Carbohydrate Counting for Diabetes Mellitus, Adult Carbohydrate counting is a method of keeping track of how many carbohydrates you eat. Eating carbohydrates naturally increases the amount of sugar (glucose) in the blood. Counting how many carbohydrates you eat improves your blood glucose control, which helps you manage your diabetes. It is important to know how many carbohydrates you can safely have in each meal. This is different for every person. A dietitian can help you make a meal plan and calculate how many carbohydrates you should have at each meal and snack. What foods contain carbohydrates? Carbohydrates are found in the following foods: ??? Grains, such as breads and cereals. ??? Dried beans and soy products. ??? Starchy vegetables, such as potatoes, peas, and corn. ??? Fruit and fruit juices. ??? Milk and yogurt. ??? Sweets and snack foods, such as cake, cookies, candy, chips, and soft drinks. How do I count carbohydrates in foods? There are two ways to count carbohydrates in food. You can read food labels or learn standard serving sizes of foods. You can use either of the methods or a combination of both. Using the Nutrition Facts label The Nutrition Facts list is included on the labels of almost all packaged foods and beverages in the [place] It includes: ??? The serving size. ??? Information about nutrients in each serving, including the grams (g) of carbohydrate per serving. To use the Nutrition Facts: ??? Decide how many servings you will have. ??? Multiply the number of servings by the number of carbohydrates per serving. ??? The resulting number is the total amount of carbohydrates that you will be having. Learning the standard serving sizes of foods When you eat carbohydrate foods that are not packaged or do not include Nutrition Facts on the label, you need to measure the servings in order to count the amount of carbohydrates. ??? Measure the foods that you will eat with a food scale or measuring cup, if needed. ??? Decide how many standard-size servings you will eat. ??? Multiply the number of servings by 15. For foods that contain carbohydrates, one serving equals 15 g of carbohydrates. ? For example, if you eat 2 cups or 10 oz (300 g) of strawberries, you will have eaten 2 servings and 30 g of carbohydrates (2 servings x 15 g = 30 g). ??? For foods that have more than one food mixed, such as soups and casseroles, you must count the carbohydrates in each food that is included. The following list contains standard serving sizes of common carbohydrate-rich foods. Each of these servings has about 15 g of carbohydrates: ??? 1 slice of bread. ??? 1 six-inch (15 cm) tortilla. ? cup or 2 oz (53 g) cooked rice or pasta. ? cup or 3 oz (85 g) cooked or canned, drained and rinsed beans or lentils. ? cup or 3 oz (85 g) starchy vegetable, such as peas, corn, or squash. ? cup or 4 oz (120 g) hot cereal. ? cup or 3 oz (85 g) boiled or mashed potatoes, or ?? or 3 oz (85 g) of a large baked potato. ? cup or 4 fl oz (118 mL) fruit juice. ??? 1 cup or 8 fl oz (237 mL) milk. ??? 1 small or 4 oz (106 g) apple. ? or 2 oz (63 g) of a medium banana. ??? 1 cup or 5 oz (150 g) strawberries. ??? 3 cups or 1 oz (24 g) popped popcorn. What is an example of carbohydrate counting? To calculate the number of carbohydrates in this sample meal, follow the steps shown below. Sample meal ??? 3 oz (85 g) chicken breast. ? cup or 4 oz (106 g) brown rice. ? cup or 3 oz (85 g) corn. ??? 1 cup or 8 fl oz (237 mL) milk. ??? 1 cup or 5 oz (150 g) strawberries with sugar-free whipped topping. Carbohydrate calculation 1. Identify the foods that contain carbohydrates: ??? Rice. ??? [place]. ??? Milk. ??? Strawberries. 2. Calculate how many servings you have of each food: ??? 2 servings rice. ??? 1 serving corn. ??? 1 serving milk. ??? 1 serving strawberries. 3. Multiply each number of servings by 15 g: ??? 2 servings rice x 15 g = 30 g. ??? 1 serving corn x 15 g = 15 g. ??? 1 serving milk x 15 g = 15 g. ??? 1 serving strawberries x 15 g = 15 g. 4. Add together all of the amounts to find the total grams of carbohydrates eaten: ??? 30 g + 15 g + 15 g + 15 g = 75 g of carbohydrates total. What are tips for following this plan? Shopping ??? Develop a meal plan and then make a shopping list. ??? Buy fresh and frozen vegetables, fresh and frozen fruit, dairy, eggs, beans, lentils, and whole grains. ??? Look at food labels. Choose foods that have more fiber and less sugar. ??? Avoid processed foods and foods with added sugars. Meal planning ??? Aim to have the same amount of carbohydrates at each meal and for each snack time. ??? Plan to have regular, balanced meals and snacks. Where to find more information ??? [place] Diabetes Association: www.diabetes.org ??? Centers for Disease Control and Prevention: www.cdc.gov Summary ??? Carbohydrate counting is a method of keeping track of how many carbohydrates you eat. ??? Eating carbohydrates naturally increases the amount of sugar (glucose) in the blood. ??? Counting how many carbohydrates you eat improves your blood glucose control, which helps you manage your diabetes. ??? A dietitian can help you make a meal plan and calculate how many carbohydrates you should have at each meal and snack. This information is not intended to replace advice given to you by your health care provider. Make sure you discuss any questions you have with your health care provider. Document Revised: 10/04/2020 Document Reviewed: 10/05/2020 Elsevier Patient Education ?? 2020 [employer]. Diabetes Mellitus and Skin Care Diabetes, also called diabetes mellitus, can lead to skin problems. People with diabetes have a higher risk for many types of skin complications because poorly controlled blood sugar (glucose) levels can cause problems over time. These problems include: ??? Damage to nerves. This can affect your ability to feel wounds, which means you may not notice minor skin injuries that could lead to serious problems. This can also decrease the amount that you sweat, causing dry skin that can break down. ??? Damage to blood vessels. The lack of blood flow can cause skin to break down and can slow healing time, which can lead to infections. ??? Areas of skin that become thick or discolored. What are some common skin conditions that affect people with diabetes? There are certain skin conditions that commonly affect people who have diabetes, such as: ??? Dry skin. ??? Thin skin. The skin on the feet may get thinner, break more easily, and heal more slowly than normal. ??? Bacterial skin infections, including: ? Styes. ? Boils. ? Infected hair follicles. ? Infections of the skin around the nails. ??? Fungal skin infections. These are most common in areas where skin rubs together, such as in the armpits or under the breasts. Diabetes can also cause the skin to change. You may develop: ??? Dark, velvety markings on the skin that usually appear on the face, neck, armpits, inner thighs, and groin (acanthosis nigricans). ??? Red, raised, scar-like tissue that may itch, feel painful, or develop into a wound (necrobiosis lipoidica). ??? Blisters on the feet, toes, hands, or fingers (bullosis diabeticorum). ??? Thickened, wax-like areas of skin that usually occur on the hands, forehead, or toes (digital sclerosis). ??? Brown or red, ring-shaped or [id number] patches of skin on the ears or fingers (disseminated granuloma). ??? Pea-shaped, yellow bumps that may be itchy and surrounded by a red ring (eruptive xanthomatosis). This usually affects the arms, feet, buttocks, and the top of the hands. ??? Round, discolored patches of anderson skin that do not hurt or itch (diabetic dermopathy). These may look like age spots. What do I need to know about itchy skin? It is common for people with diabetes to have itchy skin caused by dryness. Frequent high blood glucose levels can cause itchiness, and poor circulation and certain skin infections can make dry, itchy skin worse. If you have itchy skin that is red or covered in a rash, this could be a sign of an allergic reaction to a medicine. If you have a rash or if your skin is very itchy, contact your health care provider. You may need help to manage your diabetes better, or you may need treatment for an infection. Untreated fungal infections can be dangerous because they allow more serious bacterial infections to enter the body. To relieve dry skin and itching: ??? Avoid very hot showers and baths. ??? Use mild soap and gentle skin cleansers. Do not use soap that is perfumed or harsh or that dries your skin. Moisturizing soaps may help. ??? Put on lotion as soon as you finish bathing. How can I prevent skin problems? Most skin problems can be prevented or treated easily if caught early. Talk with your health care provider if you have any concerns. General tips usually include: ??? Check your skin every day for cuts, bruises, redness, blisters, or sores, especially on your feet. Tell your health care provider about any cuts, wounds, or sores that you have and if they are healing slowly. ??? Keep your skin clean and dry. Do not use hot water. ??? Moisturize your skin to prevent chapping. ??? Do not scratch dry skin. Scratching dry skin can open it up to infection. ??? Keep your blood glucose controlled. Follow these instructions at home: ??? Schedule a foot exam with your health care provider once every year. This exam includes an inspection of the structure and skin of your feet. ??? Make sure that your health care provider performs a visual foot exam at every medical visit. ??? If you get a skin injury, such as a cut, blister, or sore, check the area every day for signs of infection. Check for: ? Redness, swelling, or pain. ? Fluid or blood. ? Warmth. ? Pus or a bad smell. ??? Do not use any products that contain nicotine or tobacco, such as cigarettes, e-cigarettes, and chewing tobacco. These can delay healing. If you need help quitting, ask your health care provider. Contact a health care provider if you: ??? Develop a cut or sore, especially on your feet. ??? Develop signs of infection after a skin injury. ??? Have itchy skin that develops redness or a rash. ??? Have discolored areas of skin. ??? Have areas where your skin is changing, such as thickening or appearing shiny. Summary ??? People with diabetes have a higher risk for many types of skin complications. This is because poorly controlled blood sugar (glucose) levels can cause problems over time. ??? Check your skin every day for cuts, bruises, redness, blisters, or sores, especially on your feet. ??? Most skin problems can be prevented or treated easily if caught early. ??? Tell your health care provider about any cuts, wounds, or sores that you have and if they are healing slowly. This information is not intended to replace advice given to you by your health care provider. Make sure you discuss any questions you have with your health care provider. Document Revised: 07/10/2020 Document Reviewed: 07/24/2020 [employer] Patient Education ?? 2020 [employer] Diabetes Mellitus and Nutrition, Adult When you have diabetes, or diabetes mellitus, it is very important to have healthy eating habits because your blood sugar (glucose) levels are greatly affected by what you eat and drink. Eating healthy foods in the right amounts, at about the same times every day, can help you: ??? Control your blood glucose. ??? Lower your risk of heart disease. ??? Improve your blood pressure. ??? Reach or maintain a healthy weight. What can affect my meal plan? Every person with diabetes is different, and each person has different needs for a meal plan. Your health care provider may recommend that you work with a dietitian to make a meal plan that is best for you. Your meal plan may vary depending on factors such as: ??? The calories you need. ??? The medicines you take. ??? Your weight. ??? Your blood glucose, blood pressure, and cholesterol levels. ??? Your activity level. ??? Other health conditions you have, such as heart or kidney disease. How do carbohydrates affect me? Carbohydrates, also called carbs, affect your blood glucose level more than any other type of food. Eating carbs naturally raises the amount of glucose in your blood. Carb counting is a method for keeping track of how many carbs you eat. Counting carbs is important to keep your blood glucose at a healthy level, especially if you use insulin or take certain oral diabetes medicines. It is important to know how many carbs you can safely have in each meal. This is different for every person. Your dietitian can help you calculate how many carbs you should have at each meal and for each snack. How does alcohol affect me? Alcohol can cause a sudden decrease in blood glucose (hypoglycemia), especially if you use insulin or take certain oral diabetes medicines. Hypoglycemia can be a life-threatening condition. Symptoms of hypoglycemia, such as sleepiness, dizziness, and confusion, are similar to symptoms of having too much alcohol. ??? Do not drink alcohol if: ? Your health care provider tells you not to drink. ? You are , may be , or are planning to become . ??? If you drink alcohol: ? Do not drink on an empty stomach. ? Limit how much you use to: ? 0???1 drink a day for women. ? 0???2 drinks a day for men. ? Be aware of how much alcohol is in your drink. In the [place] one drink equals one 12 oz bottle of beer (355 mL), one 5 oz glass of wine (148 mL), or one 1?? oz glass of hard liquor (44 mL). ? Keep yourself hydrated with water, diet soda, or unsweetened iced tea. ? Keep in mind that regular soda, juice, and other mixers may contain a lot of sugar and must be counted as carbs. What are tips for following this plan? Reading food labels ??? Start by checking the serving size on the Nutrition Facts label of packaged foods and drinks. The amount of calories, carbs, fats, and other nutrients listed on the label is based on one serving of the item. Many items contain more than one serving per package. ??? Check the total grams (g) of carbs in one serving. You can calculate the number of servings of carbs in one serving by dividing the total carbs by 15. For example, if a food has 30 g of total carbs per serving, it would be equal to 2 servings of carbs. ??? Check the number of grams (g) of saturated fats and trans fats in one serving. Choose foods that have a low amount or none of these fats. ??? Check the number of milligrams (mg) of salt (sodium) in one serving. Most people should limit total sodium intake to less than 2,300 mg per day. ??? Always check the nutrition information of foods labeled as low-fat or nonfat. These foods may be higher in added sugar or refined carbs and should be avoided. ??? Talk to your dietitian to identify your daily goals for nutrients listed on the label. Shopping ??? Avoid buying canned, pre-made, or processed foods. These foods tend to be high in fat, sodium, and added sugar. ??? Shop around the outside edge of the grocery store. This is where you will most often find fresh fruits and vegetables, bulk grains, fresh meats, and fresh dairy. Cooking ??? Use low-heat cooking methods, such as baking, instead of high-heat cooking methods like deep frying. ??? Cook using healthy oils, such as olive, canola, or sunflower oil. ??? Avoid cooking with butter, cream, or high-fat meats. Meal planning ??? Eat meals and snacks regularly, preferably at the same times every day. Avoid going long periods of time without eating. ??? Eat foods that are high in fiber, such as fresh fruits, vegetables, beans, and whole grains. Talk with your dietitian about how many servings of carbs you can eat at each meal. ??? Eat 4???6 oz (112???168 g) of lean protein each day, such as lean meat, chicken, fish, eggs, or tofu. One ounce (oz) of lean protein is equal to: ? 1 oz (28 g) of meat, chicken, or fish. ? 1 egg. ? ?? cup (62 g) of tofu. ??? Eat some foods each day that contain healthy fats, such as avocado, nuts, seeds, and fish. What foods should I eat? Fruits Berries. Apples. Oranges. Peaches. Apricots. Plums. Grapes. Kelvin. Papaya. Pomegranate. Kiwi. Cherries. Vegetables Lettuce. Spinach. Leafy greens, including kale, chard, giovanni greens, and mustard greens. Beets. Cauliflower. Cabbage. Broccoli. Carrots. Green beans. Tomatoes. Peppers. Onions. Cucumbers. [place] sprouts. Grains Whole grains, such as whole-wheat or whole-grain bread, crackers, tortillas, cereal, and pasta. Unsweetened oatmeal. Quinoa. Brown or wild rice. Meats and other proteins Seafood. Poultry without skin. Lean cuts of poultry and beef. Tofu. Nuts. Seeds. Dairy Low-fat or fat-free dairy products such as milk, yogurt, and cheese. The items listed above may not be a complete list of foods and beverages you can eat. Contact a dietitian for more information. What foods should I avoid? Fruits Fruits canned with syrup. Vegetables Canned vegetables. Frozen vegetables with butter or cream sauce. Grains Refined white flour and flour products such as bread, pasta, snack foods, and cereals. Avoid all processed foods. Meats and other proteins Fatty cuts of meat. Poultry with skin. Breaded or fried meats. Processed meat. Avoid saturated fats. Dairy Full-fat yogurt, cheese, or milk. Beverages Sweetened drinks, such as soda or iced tea. The items listed above may not be a complete list of foods and beverages you should avoid. Contact a dietitian for more information. Questions to ask a health care provider ??? Do I need to meet with a after school driver? Do I need to meet with a dietitian? What number can I call if I have questions? When are the best times to check my blood glucose? Where to find more information: ??? [place] [employer]: diabetes.org ??? Academy of Nutrition and Dietetics: www.eatright.org ??? National [place] of Diabetes and Digestive and Kidney Diseases: www.niddk.nih.gov ??? Association of Diabetes Care and Education Specialists: www.diabeteseducator.org Summary ??? It is important to have healthy eating habits because your blood sugar (glucose) levels are greatly affected by what you eat and drink. ??? A healthy meal plan will help you control your blood glucose and maintain a healthy lifestyle. ??? Your health care provider may recommend that you work with a dietitian to make a meal plan that is best for you. ??? Keep in mind that carbohydrates (carbs) and alcohol have immediate effects on your blood glucose levels. It is important to count carbs and to use alcohol carefully. This information is not intended to replace advice given to you by your health care provider. Make sure you discuss any questions you have with your health care provider. Document Revised: 09/11/2020 Document Reviewed: 09/11/2020 [employer] Patient Education ?? 2020 [employer]. gabapentin (GA ba PEN tin) Gralise, Horizant, Neurontin What is the most important information I should know about gabapentin? Gabapentin can cause life-threatening breathing problems, especially if you already have a breathing disorder or if you use other medicines that can make you drowsy or slow your breathing. Seek emergency medical attention if you have very slow breathing. Some people have thoughts about suicide or behavior changes while taking gabapentin. Stay alert to changes in your mood or symptoms. Report any new or worsening symptoms to your doctor. Do not stop using gabapentin suddenly, even if you feel fine. What is gabapentin? Gabapentin is used together with other medicines to treat partial seizures in adults and children at least 3 years old. Gabapentin is also used to treat nerve pain caused by herpes virus or shingles (herpes zoster) in adults. Use only the brand and form of gabapentin your doctor has prescribed. Check your medicine each time you get a refill to make sure you receive the correct form. Gralise is used only to treat nerve pain. Horizant is used to treat nerve pain and restless legs syndrome (RLS). Neurontin is used to treat nerve pain and seizures. Gabapentin may also be used for purposes not listed in this medication guide. What should I discuss with my healthcare provider before taking gabapentin? You should not use gabapentin if you are allergic to it. Tell your doctor if you have ever had: ?? breathing problems or lung disease, such as chronic obstructive pulmonary disease (COPD); ?? kidney disease (or if you are on dialysis); ?? diabetes; ?? depression, a mood disorder, or suicidal thoughts or actions; ?? a drug addiction; ?? a seizure (unless you take gabapentin to treat seizures); ?? liver disease; ?? heart disease; or ?? (for patients with RLS) if you are a day sleeper or work a seasonal package handler. Some people have thoughts about suicide while taking this medicine. Children taking gabapentin may have behavior changes. Stay alert to changes in your mood or symptoms. Report any new or worsening symptoms to your doctor. It is not known whether this medicine will harm an unborn baby. Tell your doctor if you are or plan to become . Seizure control is very important during , and having a seizure could harm both mother and baby. Do not start or stop taking gabapentin for seizures without your doctor's advice, and tell your doctor right away if you become . If you are , your name may be listed on a registry to track the effects of gabapentin on the baby. It may not be safe to breastfeed while using this medicine. Ask your doctor about any risk. How should I take gabapentin? Follow all directions on your prescription label. Do not take this medicine in larger or smaller amounts or for longer than recommended. If your doctor changes your brand, strength, or type of gabapentin, your dosage needs may change. Ask your pharmacist if you have any questions about the new kind of gabapentin you receive at the pharmacy. Both Gralise and Horizant should be taken with food. Neurontin can be taken with or without food. If you break a Neurontin tablet and take only half of it, take the other half at your next dose. Any tablet that has been broken should be used as soon as possible or within a few days. Swallow the capsule or tablet whole and do not crush, chew, break, or open it. Measure liquid medicine carefully. Use the dosing syringe provided, or use a medicine dose-measuring device (not a kitchen spoon). Do not stop using gabapentin suddenly, even if you feel fine. Stopping suddenly may cause increased seizures. Follow your doctor's instructions about tapering your dose. In case of emergency, wear or carry medical identification to let others know you have seizures. This medicine can cause unusual results with certain medical tests. Tell any doctor who treats you that you are using gabapentin. Store gabapentin tablets and capsules at room temperature away from light and moisture. Store the liquid medicine in the refrigerator. Do not freeze. What happens if I miss a dose? Take the medicine as soon as you can, but skip the missed dose if it is almost time for your next dose. Do not take two doses at one time. If you take Horizant: Skip the missed dose and use your next dose at the regular time. Do not use two doses of Horizant at one time. What happens if I overdose? Seek emergency medical attention or call the Poison Help line at . What should I avoid while taking gabapentin? Avoid driving or hazardous activity until you know how this medicine will affect you. Your reactions could be impaired. Dizziness or drowsiness can cause falls, accidents, or severe injuries. Avoid taking an antacid within 2 hours before you take gabapentin. Antacids can make it harder for your body to absorb gabapentin. Avoid drinking alcohol while taking gabapentin. What are the possible side effects of gabapentin? Get emergency medical help if you have signs of an allergic reaction: hives; difficult breathing; swelling of your face, lips, tongue, or throat. Seek medical treatment if you have a serious drug reaction that can affect many parts of your body. Symptoms may include: skin rash, fever, swollen glands, muscle aches, severe weakness, unusual bruising, upper stomach pain, or yellowing of your skin or eyes. Report any new or worsening symptoms to your doctor, such as: mood or behavior changes, anxiety, panic attacks, trouble sleeping, or if you feel impulsive, irritable, agitated, hostile, aggressive, restless, hyperactive (mentally or physically), depressed, or have thoughts about suicide or hurting yourself. Call your doctor at once if you have: ?? weak or shallow breathing; ?? blue-colored skin, lips, fingers, and toes; ?? confusion, extreme drowsiness or weakness; ?? problems with balance or muscle movement; ?? unusual or involuntary eye movements; or ?? increased seizures. Gabapentin can cause life-threatening breathing problems. A person caring for you should seek emergency medical attention if you have slow breathing with long pauses, blue colored lips, or if you are hard to wake up. Breathing problems may be more likely in older adults or in people with COPD. Some side effects are more likely in children taking gabapentin. Contact your doctor if the child taking this medicine has any of the following side effects: ?? changes in behavior; ?? memory problems; ?? trouble concentrating; or ?? acting restless, hostile, or aggressive. Common side effects may include: ?? fever, chills, sore throat, body aches, unusual tiredness; ?? jerky movements; ?? headache; ?? double vision; ?? swelling of your legs and feet; ?? tremors; ?? trouble speaking; ?? dizziness, drowsiness, tiredness; ?? problems with balance or eye movements; or ?? nausea, vomiting. This is not a complete list of side effects and others may occur. Call your doctor for medical advice about side effects. You may report side effects to FDA at 0-853-EDQ-8940. What other drugs will affect gabapentin? Using gabapentin with other drugs that make you drowsy or slow your breathing can cause dangerous side effects or . Ask your doctor before using opioid medication, a sleeping pill, cold or allergy medicine, a muscle relaxer, or medicine for anxiety or seizures. Other drugs may affect gabapentin, including prescription and [id number]-gauwlfu medicines, vitamins, and herbal products. Tell your doctor about all your current medicines and any medicine you start or stop using. Where can I get more information? Your pharmacist can provide more information about gabapentin. Remember, keep this and all other medicines out of the reach of children, never share your medicines with others, and use this medication only for the indication prescribed. Every effort has been made to ensure that the information provided by [employer]. [employer]') is accurate, up-to-date, and complete, but no guarantee is made to that effect. Drug information contained herein may be time sensitive. [employer] information has been compiled for use by healthcare practitioners and consumers in the [place] and therefore [employer] does not warrant that uses outside of the [place] are appropriate, unless specifically indicated otherwise. [employer] drug information does not endorse drugs, diagnose patients or recommend therapy. [employer] drug information is an informational resource designed to assist licensed healthcare practitioners in caring for their patients and/or to serve consumers viewing this service as a supplement to, and not a substitute for, the expertise, skill, knowledge and judgment of healthcare practitioners. The absence of a warning for a given drug or drug combination in no way should be construed to indicate that the drug or drug combination is safe, effective or appropriate for any given patient. [facility] does not assume any responsibility for any aspect of healthcare administered with the aid of information [facility] provides. The information contained herein is not intended to cover all possible uses, directions, precautions, warnings, drug interactions, allergic reactions, or adverse effects. If you have questions about the drugs you are taking, check with your doctor, nurse or pharmacist. Copyright 8835-2730 [facility] [employer]. Version: 17.. Revision Date: 11/13/2020. hydralazine (ju burnette) Apresoline What is the most important information I should know about hydralazine? You should not use this medicine if you have coronary artery disease, or rheumatic heart disease affecting the mitral valve. What is hydralazine? Hydralazine is a vasodilator that works by relaxing the muscles in your blood vessels to help them dilate (widen). This lowers blood pressure and allows blood to flow more easily through your veins and arteries. Hydralazine is used to treat high blood pressure (hypertension). Hydralazine may also be used for purposes not listed in this medication guide. What should I discuss with my healthcare provider before taking hydralazine? You should not use hydralazine if you are allergic to it, or if you have: ?? coronary artery disease; or ?? rheumatic heart disease affecting the mitral valve. To make sure hydralazine is safe for you, tell your doctor if you have ever had: ?? kidney disease; ?? systemic lupus erythematosus; ?? angina (chest pain); or ?? a stroke. It is not known whether this medicine will harm an unborn baby. Tell your doctor if you are or plan to become . Hydralazine can pass into breast milk, but effects on the nursing baby are not known. Tell your doctor if you are breast-feeding. Hydralazine is not approved for use by anyone younger than 18 years old. How should I take hydralazine? Follow all directions on your prescription label. Do not take this medicine in larger or smaller amounts or for longer than recommended. Your blood pressure will need to be checked often. You may also need frequent blood tests. Keep using this medicine as directed, even if you feel well. High blood pressure often has no symptoms. You may need to use blood pressure medicine for the rest of your life. Store at room temperature away from moisture and heat. What happens if I miss a dose? Take the missed dose as soon as you remember. Skip the missed dose if it is almost time for your next scheduled dose. Do not take extra medicine to make up the missed dose. What happens if I overdose? Seek emergency medical attention or call the Poison Help line at . Overdose symptoms may include rapid heartbeats, warmth or tingling under your skin, chest pain, or fainting. What should I avoid while taking hydralazine? Avoid getting up too fast from a sitting or lying position, or you may feel dizzy. Get up slowly and steady yourself to prevent a fall. What are the possible side effects of hydralazine? Get emergency medical help if you have signs of an allergic reaction: hives; difficult breathing; swelling of your face, lips, tongue, or throat. Call your doctor at once if you have: ?? chest pain or pressure, pain spreading to your jaw or shoulder; ?? fast or pounding heartbeats; ?? a light-headed feeling, like you might pass out; ?? numbness, tingling, or burning pain in your hands or feet; ?? painful or difficult urination; ?? little or no urination; or ?? lupus-like syndrome--joint pain or swelling with fever, swollen glands, muscle aches, chest pain, vomiting, unusual thoughts or behavior, and patchy skin color. Common side effects may include: ?? chest pain, fast heart rate; ?? headache; or ?? nausea, vomiting, diarrhea, loss of appetite. This is not a complete list of side effects and others may occur. Call your doctor for medical advice about side effects. You may report side effects to FDA at 6-220-NKE-4408. What other drugs will affect hydralazine? Tell your doctor about all your current medicines and any you start or stop using, especially: ?? diazoxide (an injectable blood pressure medication); or ?? an MAO inhibitor--isocarboxazid, linezolid, methylene blue injection, phenelzine, rasagiline, selegiline, tranylcypromine, and others. This list is not complete. Other drugs may interact with hydralazine, including prescription and jrqv-xtl-pkvvorg medicines, vitamins, and herbal products. Not all possible interactions are listed in this medication guide. Where can I get more information? Your pharmacist can provide more information about hydralazine. Remember, keep this and all other medicines out of the reach of children, never share your medicines with others, and use this medication only for the indication prescribed. Every effort has been made to ensure that the information provided by [employer]. ('[employer]') is accurate, up-to-date, and complete, but no guarantee is made to that effect. Drug information contained herein may be time sensitive. [employer] information has been compiled for use by healthcare practitioners and consumers in the [place] and therefore [employer] does not warrant that uses outside of the [place] are appropriate, unless specifically indicated otherwise. [employer] drug information does not endorse drugs, diagnose patients or recommend therapy. [employer] drug information is an informational resource designed to assist licensed healthcare practitioners in caring for their patients and/or to serve consumers viewing this service as a supplement to, and not a substitute for, the expertise, skill, knowledge and judgment of healthcare practitioners. The absence of a warning for a given drug or drug combination in no way should be construed to indicate that the drug or drug combination is safe, effective or appropriate for any given patient. [employer] does not assume any responsibility for any aspect of healthcare administered with the aid of information [employer] provides. The information contained herein is not intended to cover all possible uses, directions, precautions, warnings, drug interactions, allergic reactions, or adverse effects. If you have questions about the drugs you are taking, check with your doctor, nurse or pharmacist. Copyright 4812-1703 [employer]. Version: 5.01. Revision Date: 10/28/2017. lisinopril (lyse [place] pril) Prinivil, Qbrelis, Zestril What is the most important information I should know about lisinopril? Do not use if you are , and tell your doctor right away if you become . If you have diabetes, do not use lisinopril together with any medication that contains aliskiren (a blood pressure medicine). Do not take lisinopril within 36 hours before or after taking medicine that contains sacubitril (such as Entresto). What is lisinopril? Lisinopril is an CONCEPCION inhibitor that is used to treat high blood pressure (hypertension) in adults and children who are at least 6 years old. Lisinopril is also used to treat congestive heart failure in adults, or to improve survival after a heart attack. Lisinopril may also be used for purposes not listed in this medication guide. What should I discuss with my healthcare provider before taking lisinopril? You should not use lisinopril if you are allergic to it, or if you: ?? have a history of angioedema; ?? recently took a heart medicine called sacubitril; or ?? are allergic to any other CONCEPCION inhibitor, such as benazepril, captopril, enalapril, fosinopril, moexipril, perindopril, quinapril, ramipril, or trandolapril. Do not take lisinopril within 36 hours before or after taking medicine that contains sacubitril (such as Entresto). If you have diabetes, do not use lisinopril together with any medication that contains aliskiren (a blood pressure medicine). You may also need to avoid taking lisinopril with aliskiren if you have kidney disease. Tell your doctor if you have ever had: ?? kidney disease (or if you are on dialysis); ?? liver disease; or ?? high levels of potassium in your blood. Do not use if you are , and tell your doctor right away if you become . Lisinopril can cause injury or to the unborn baby if you take the medicine during your second or third trimester. You should not breastfeed while using this medicine. How should I take lisinopril? Follow all directions on your prescription label and read all medication guides or instruction sheets. Your doctor may occasionally change your dose. Use the medicine exactly as directed. Drink plenty of water each day while you are taking this medicine. Lisinopril can be taken with or without food. Measure liquid medicine carefully. Use the dosing syringe provided, or use a medicine dose-measuring device (not a kitchen spoon). Your blood pressure will need to be checked often. Your kidney function and electrolytes may also need to be checked. Call your doctor if you are sick with vomiting or diarrhea, or if you are sweating more than usual. You can easily become dehydrated while taking lisinopril. This can lead to very low blood pressure, a serious electrolyte imbalance, or kidney failure. If you need surgery, tell the surgeon ahead of time that you are using lisinopril. If you have high blood pressure, keep using this medicine even if you feel well. High blood pressure often has no symptoms. You may need to use blood pressure medicine for the rest of your life. Store at room temperature away from moisture and heat. Do not freeze the oral liquid. What happens if I miss a dose? Take the medicine as soon as you can, but skip the missed dose if it is almost time for your next dose. Do not take two doses at one time. What happens if I overdose? Seek emergency medical attention or call the Poison Help line at . What should I avoid while taking lisinopril? Drinking alcohol can further lower your blood pressure and may increase certain side effects of lisinopril. Avoid becoming overheated or dehydrated during exercise, in hot weather, or by not drinking enough fluids. Lisinopril can decrease sweating and you may be more prone to heat stroke. Do not use potassium supplements or salt substitutes, unless your doctor has told you to. Avoid getting up too fast from a sitting or lying position, or you may feel dizzy. What are the possible side effects of lisinopril? Get emergency medical help if you have signs of an allergic reaction: hives; severe stomach pain; difficulty breathing; swelling of your face, lips, tongue, or throat. You may be more likely to have an allergic reaction if you are -Polish. Call your doctor at once if you have: ?? a light-headed feeling, like you might pass out; ?? fever, sore throat; documented in this encounter Plan of Treatment Not on file documented as of this encounter Visit Diagnoses Not on filedocumented in this encounter
--- OUTSIDE RECORDS SUMMARY | 2025-03-31 23:43 | XMS_ITS | Encounter Summary ---
Author Organization [employer] Address [address] [place] [address] Care Team Providers Care Technical Stenographer Name Role Phone Unavailable Primary Care Provider Unavailabl e Encounter Details Date Type Department Care Team (Late st Contact Info) Description 01/08/2022 Transcribed Document [facility] Family Medicine [address] [place] [address] ProviderCarlos MD [address] [place] [address] Social History Tobacco Use Types Packs/Day Years Used Date Smoking Tobacco: Never Assessed Sex and Gender Information Value Date Recorded Sex Assigned at Male 04/15/2022 4:33 PM CDT Legal Sex Male 4:33 PM CDT Gender Identity Male 04/15/2022 4:33 PM CDT Sexual Orientation Not on file documented as of this encounter Miscellaneous Notes * Cerner Conversion Note - Historical ProviderMD - 01/08/2022 2:00 AM CDT Helper/Driver Details Entered On: 01/08/2022 6:49 EDT Performed On: 01/08/2022 2:00 EDT by Dedra Lucero NON EMP RN - INTERNATIONAL Order Details Transport Mode Order Detail : Wheelchair Isolation Precautions Order Detail : Standard Precautions Order Detail : N/A IV Order Detail : 1 Lift/Transfer : Minimal Central Line Order Detail : No Room Service : Not Appropriate Arterial Line : No Patient Needs Meds Crushed/Liquid : No Dedra Lucero NON EMP RN - INTERNATIONAL - 01/08/2022 6:49 EDT documented in this encounter Plan of Treatment Not on file documented as of this encounter Visit Diagnoses Not on filedocumented in this encounter
--- OUTSIDE RECORDS SUMMARY | 2025-03-31 23:43 | XMS_ITS | Encounter Summary ---
Author Organization [employer] Address [address] [place] [address] Care Team Providers Care Medical Cost Consultant Name Role Phone Unavailable Primary Care Provider Unavailabl e Encounter Details Date Type Department Care Team (Late st Contact Info) Description 01/06/2022 Transcribed Document [facility] [place] Family Medicine [address] [place] [address] ProviderCarlos MD [address] [place] [address] Social History Tobacco Use Types Packs/Day Years Used Date Smoking Tobacco: Never Assessed Sex and Gender Information Value Date Recorded Sex Assigned at Male 04/15/2022 4:33 PM CDT Legal Sex Male 4:33 PM CDT Gender Identity Male 04/15/2022 4:33 PM CDT Sexual Orientation Not on file documented as of this encounter Miscellaneous Notes * Cerner Conversion Note - Historical ProviderMD - 01/06/2022 5:00 AM CDT Chart Check - Review Order Profile Entered On: 01/06/2022 5:08 EDT Performed On: 01/06/2022 5:00 EDT by EMMA DIEGO LPN Chart Check Powerplans Initiated/Discontinued as Appropriate : Yes All Active Orders Reviewed : Yes EMMA DIEGO LPN - 01/06/2022 5:08 EDT documented in this encounter Plan of Treatment Not on file documented as of this encounter Visit Diagnoses Not on filedocumented in this encounter
--- OUTSIDE RECORDS SUMMARY | 2025-03-31 23:43 | XMS_ITS | Encounter Summary ---
Author Organization [employer] Address [address] [place] [address] Care Team Providers Care Internal Corrosion Specialist Name Role Phone Unavailable Primary Care Provider Unavailabl e Encounter Details Date Type Department Care Team (Late st Contact Info) Description 01/08/2022 Transcribed Document [facility] [place] [address] [place] [address] ProviderCarlos MD [address] [place] [address] Social History Tobacco Use Types Packs/Day Years Used Date Smoking Tobacco: Never Assessed Sex and Gender Information Value Date Recorded Sex Assigned at Male 04/15/2022 4:33 PM CDT Legal Sex Male 4:33 PM CDT Gender Identity Male 04/15/2022 4:33 PM CDT Sexual Orientation Not on file documented as of this encounter Miscellaneous Notes * Cerner Conversion Note - Historical ProviderMD - 01/08/2022 5:00 AM CDT Chart Check - Review Order Profile Entered On: 01/08/2022 6:49 EDT Performed On: 01/08/2022 5:00 EDT by Dedra Lucero NON EMP RN - INTERNATIONAL Chart Check Powerplans Initiated/Discontinued as Appropriate : Yes All Active Orders Reviewed : Yes Dedra Lucero NON EMP RN - INTERNATIONAL - 01/08/2022 6:49 EDT documented in this encounter Plan of Treatment Not on file documented as of this encounter Visit Diagnoses Not on filedocumented in this encounter
--- OUTSIDE RECORDS SUMMARY | 2025-03-31 23:43 | XMS_ITS | Encounter Summary ---
Author Organization [employer] Address [address] [place] [address] Care Team Providers Care Construction Inspector Name Role Phone Unavailable Primary Care Provider Unavailabl e Encounter Details Date Type Department Care Team (Late st Contact Info) Description 01/08/2022 Transcribed Document [facility] [place] Family Medicine [address] [place] [address] ProviderCarlos MD [address] [place] [address] Social History Tobacco Use Types Packs/Day Years Used Date Smoking Tobacco: Never Assessed Sex and Gender Information Value Date Recorded Sex Assigned at Male 04/15/2022 4:33 PM CDT Legal Sex Male 4:33 PM CDT Gender Identity Male 04/15/2022 4:33 PM CDT Sexual Orientation Not on file documented as of this encounter Miscellaneous Notes * Cerner Conversion Note - Historical ProviderMD - 01/08/2022 12:49 PM CDT Final Discharge Planning Entered On: 01/08/2022 12:50 EDT Performed On: 01/08/2022 12:49 EDT by RODDY PHILLIPS RN - Structural Metal Worker Final Discharge Planning Discharge Arrangements : Patient Post-Acute Information Patient Name: INEZ MALDONADO JR Gender: Male : [birth year] Age: 66 Years No Post-Acute Placement(s) Listed No Post-Acute Service(s) Listed No [place] Referral(s) Listed Transportation Needs : Family/Friend Follow Up Appointment Scheduled : Yes Is Patient High/Moderate Readmission Risk? : Yes Is Patient Ready for Discharge? : Yes Physician Notified Patient is Ready for Discharge? : Yes Discharge To Care Management : Home/Residential/Halfway or Self Care -01 JACQUELINE, RODDY, RN - Structural Metal Worker - 01/08/2022 12:49 EDT documented in this encounter Plan of Treatment Not on file documented as of this encounter Visit Diagnoses Not on filedocumented in this encounter
--- OUTSIDE RECORDS SUMMARY | 2025-03-31 23:43 | XMS_ITS | Encounter Summary ---
Author Organization [employer] Address [address] [place] [address] Care Team Providers Care Fiber Product Cutting Machine Operator Name Role Phone Unavailable Primary Care Provider Unavailabl e Encounter Details Date Type Department Care Team (Late st Contact Info) Description 01/08/2022 Transcribed Document [facility] Family Medicine [address] [place] [address] ProviderCarlos MD [facility] [place], [place] [address] Social History Tobacco Use Types Packs/Day Years Used Date Smoking Tobacco: Never Assessed Sex and Gender Information Value Date Recorded Sex Assigned at Male 04/15/2022 4:33 PM CDT Legal Sex Male 4:33 PM CDT Gender Identity Male 04/15/2022 4:33 PM CDT Sexual Orientation Not on file documented as of this encounter Miscellaneous Notes * Cerner Conversion Note - Carlos ProviderMD - 01/08/2022 8:33 AM CDT Patient Resource Center Entered On: 01/08/2022 8:35 EDT Performed On: 01/08/2022 8:33 EDT by Celia Rodriguez, DIAGNOSTIC ASSISTANT Patient Resource Center Provider Status : EST Other Established Provider Name : Kaveh Ryan Patient Phone Number : [phone] Patient Insurance Type : Medicaid (ex. Wellcare, Passport) Source of Referral : Case management Location of Patient : Case management referral Primary Care Scheduled : Yes Primary Care Scheduled Type : Non CMG Primary Care Provider Name : Kaveh Ryan Primary Care Appointment Date/Time : 01/15/2022 15:15 EDT Specialty Care Scheduled : Yes Specialty Type Scheduled2 : Nephrology Nephrology Provider Name : Sebastián Sanchez Nephrology Appointment Date/Time : 01/22/2022 15:30 EDT Qualify for Diabetes and/or Nutrition Referral : No Wound Care Appointment Made : No Why Patient Visited ED- Specialty spent : Other How Patient Arrived at ED : Other Primary Language : Nigerien Patient Resource Center Comment : PCP and NEPH appts made Follow Up Needed : Celia James, DIAGNOSTIC ASSISTANT - 01/08/2022 8:33 EDT Electronically signed by [facility] Conversion Motorcycle Repairer Cerner at 02/02/2023 2:06 PM CDT documented in this encounter Plan of Treatment Not on file documented as of this encounter Visit Diagnoses Not on filedocumented in this encounter
--- OUTSIDE RECORDS SUMMARY | 2025-03-31 23:43 | XMS_ITS | Encounter Summary ---
Author Organization [employer] Address [address] [place] [address] Care Team Providers Care File Drawer Finisher Name Role Phone Unavailable Primary Care Provider Unavailabl e Encounter Details Date Type Department Care Team (Late st Contact Info) Description 01/08/2022 Transcribed Document [facility] [place] Family Medicine [address] [place] [address] ProviderCarlos MD [address] [place], [place] [id number] Social History Tobacco Use Types Packs/Day Years Used Date Smoking Tobacco: Never Assessed Sex and Gender Information Value Date Recorded Sex Assigned at Male 04/15/2022 4:33 PM CDT Legal Sex Male 4:33 PM CDT Gender Identity Male 04/15/2022 4:33 PM CDT Sexual Orientation Not on file documented as of this encounter Miscellaneous Notes * Cerner Conversion Note - Carlos ProviderMD - 01/08/2022 11:04 AM CDT Patient Education Materials Follows: Heart Failure Action Plan A heart failure [...] worse. ??? You suddenly gain more than 2?3 lb (0.9?1.4 kg) in a day, or more than [...] your legs or abdomen. ??? You gain 2?3 lb (0.9?1.4 kg) in one day, or 5 lb [...] Follow these instructions at home: ??? Take xcjl-bpw-mcjiyok and prescription medicines only as told by your health care provider. ??? Weigh yourself daily. Your target weight is lb ( kg). ? Call your health care provider if you gain more than lb ( kg) in a day, or more than lb ( kg) in one week. ??? Eat a heart-healthy diet. Work with a diet and shredding specialist (dietitian) to create an eating plan that is best for you. ??? Keep all follow-up visits as told by your health care provider. This is important. Where to find more information ??? [place] [employer] Association: www.heart.org Summary ??? Follow the [...] provider. Document Revised: 09/17/2018 Document Reviewed: 11/14/2017 [employer] Patient Education ? 2020 [employer] Endocrinology Carbohydrate Counting for Diabetes Mellitus, Adult Carbohydrate [...] (85 g) boiled or mashed potatoes, or ? or 3 oz (85 g) of a [...] foods that contain carbohydrates: ??? Rice. ??? [place]. ??? Milk. ??? Strawberries. 2. Calculate how [...] snacks. Where to find more information ??? [place] Diabetes Association: www.diabetes.org ??? Centers for Disease [...] provider. Document Revised: 10/04/2020 Document Reviewed: 10/05/2020 [employer] Patient Education ? 2020 [employer] Diabetes Mellitus and Skin Care Diabetes, also [...] sclerosis). ??? Brown or red, ring-shaped or oumy-nida-qiffch patches of skin on the ears or [...] provider. Document Revised: 07/10/2020 Document Reviewed: 07/24/2020 [employer] Patient Education ? 2020 [employer] Diabetes Mellitus and Nutrition, Adult When [...] Limit how much you use to: ? 0?1 drink a day for women. ? 0?2 drinks a day for men. ? Be aware of how much alcohol is in your drink. In the [place] one drink equals one 12 oz bottle of beer (355 mL), one 5 oz glass of wine (148 mL), or one 1? oz glass of hard liquor (44 mL). [...] can eat at each meal. ??? Eat 4?6 oz (112?168 g) of lean protein each day, such as lean meat, chicken, fish, eggs, or tofu. One ounce (oz) of lean protein is equal to: ? 1 oz (28 g) of meat, chicken, or fish. ? 1 egg. ? ? cup (62 g) of tofu. ??? Eat some foods each day that contain healthy fats, such as avocado, nuts, seeds, and fish. What foods should I eat? Fruits Berries. Apples. Oranges. Peaches. Apricots. Plums. Grapes. [place]. Papaya. Pomegranate. Kiwi. Cherries. Vegetables Lettuce. Spinach. Leafy greens, including kale, chard, giovanni greens, and mustard greens. Beets. Cauliflower. Cabbage. Broccoli. Carrots. Green beans. Tomatoes. Peppers. Onions. Cucumbers. [place] sprouts. Grains Whole grains, such as whole-wheat [...] Do I need to meet with a scale operator? Do I need to meet with a dietitian? What number can I call if I have questions? When are the best times to check my blood glucose? Where to find more information: ??? [place] Diabetes Association: diabetes.org ??? Academy of Nutrition and Dietetics: www.eatright.org ??? National [place] of Diabetes and Digestive and Kidney Diseases: [...] provider. Document Revised: 09/11/2020 Document Reviewed: 09/11/2020 [employer] Patient Education ? 2020 [employer]. Nephrology Acute Kidney Injury, Adult Acute kidney injury [...] these instructions at home: Medicines ??? Take xhco-qlu-hxkxgsd and prescription medicines only as told by [...] important. Where to find more information ??? [place] Association of Kidney Patients: www.aakp.org ??? National Kidney Foundation: www.kidney.org ??? [place] Kidney Fund: www.akfinc.org ??? [employer] [facility] [...] provider. Document Revised: 08/14/2020 Document Reviewed: 08/14/2020 [employer] [facility] Patient Education ? 2020 [employer]. Pulmonary Medicine Chronic Obstructive Pulmonary Disease Exacerbation Chronic obstructive [...] these instructions at home: Medicines ??? Take qpab-tnu-rwpvlyp and prescription medicines only as told by [...] cannot use soap and water, use hand redrying machine operator. ??? During flu season, avoid areas that [...] provider. Document Revised: 09/17/2018 Document Reviewed: 11/09/2017 [employer] [facility] Patient Education ? 2020 [employer] documented in this encounter Plan of Treatment Not on file documented as of this encounter Visit Diagnoses Not on filedocumented in this encounter
--- OUTSIDE RECORDS SUMMARY | 2025-03-31 23:43 | XMS_ITS | Encounter Summary ---
Author Organization [employer] i[employer] Address [address] [place] [address] Care Team Providers Care Newsperson Name Role Phone Unavailable Primary Care Provider Unavailabl e Encounter Details Date Type Department Care Team (Late st Contact Info) Description 01/08/2022 Transcribed Document [facility] Family Medicine [address] [place] [address] ProviderCarlos MD [address] [place], [place] [address] Social History Tobacco Use Types Packs/Day Years Used Date Smoking Tobacco: Never Assessed Sex and Gender Information Value Date Recorded Sex Assigned at Male 04/15/2022 4:33 PM CDT Legal Sex Male 4:33 PM CDT Gender Identity Male 04/15/2022 4:33 PM CDT Sexual Orientation Not on file documented as of this encounter Miscellaneous Notes * Cerner Conversion Note - Historical ProviderMD - 01/08/2022 2:24 PM CDT SAMINA BONILLA, [address] [place] [address] Re: INEZ SHOOK Date of Visit: 01/03/2022 Dear SAMINA BONILLA Thank you for allowing me to participate in your patient's care. Please see the accompanying information that I would like to share with you regarding your patient. This Document is confidential and intended solely for the use of the individual or entity to which it is addressed. If you are not the named addressee, please disregard and do not disseminate, distribute or copy this information. If you are the intended recipient any disclosure of this information and its contents is strictly prohibited. Sincerely, ANA TORRES [address] [facility] [address] [place] [address] The following document(s) were included in the letter: January 08, 2022 10:37:00 EDT - (01/08/2022) Discharge Summary * documented in this encounter Plan of Treatment Not on file documented as of this encounter Visit Diagnoses Not on filedocumented in this encounter
--- OUTSIDE RECORDS SUMMARY | 2025-03-31 23:43 | XMS_ITS | Encounter Summary ---
Author Organization [facility] Address [address] [place] [address] Care Team Providers Care Main Line Assembler Name Role Phone Kaveh Ryan MD Primary Care Provider + [phone] Kalli Shipley MD Unavailable + [phone] Reason for Visit * Reason Comments Med Refill Encounter Details Date Type Department Care Team (Late st Contact Info) Description 05/07/2023 [facility]ill [place] [facility] [address] [place] [address] Kalli Shipley MD [address] [place] [address] Social History Tobacco Use Types Packs/Day Years Used Date Smoking Tobacco: Never Smokeless Tobacco: Never Alcohol Use Standard Drinks/Week Comments Not Currently 0 (1 standard drink = 0.6 oz pur e alcohol) Sex and Gender Information Value Date Recorded Sex Assigned at Male 01/30/2022 11:52 PM EDT Legal Sex Male 7:16 PM EDT Gender Identity Male 01/30/2022 11:52 PM EDT Sexual Orientation Not on file documented as of this encounter Miscellaneous Notes * Telephone Encounter - Quinn Alford MD - 05/07/2023 3:44 PM EDT I reviewed the PDMP and refilled the lacosamide 150mg BID. documented in this encounter Plan of Treatment Upcoming Encounters Date Type Department Care Team (Late st Contact Info) Description 05/12/2025 10:40 AM EDT Office Visit [facility] [address] [place] [address] [place] [address] Juliann Adrian, WEATHER FORCASTER [address] [facility] [address] [place] [address] documented as of this encounter Visit Diagnoses Not on filedocumented in this encounter Additional Health Concerns Assessment Noted Time A fall risk assessment has been complete d for the patient 02/26/2023 9:15 AM EDT A Body Mass Index follow-up plan has been documented for the patient 02/26/2023 12:36 PM EDT documented as of this encounter Care Teams Main Line Assembler Relationship Specialty Start Date End Date Kaveh Ryan MD [address] [facility] [place] [address] PCP - General 05/28/22 Kalli Shipley MD [address] [facility] [address] [place] [address] Service Attending Neurology 05/28/22 documented as of this encounter
--- OUTSIDE RECORDS SUMMARY | 2025-04-01 00:42 | XMS_ITS | CCD ---
Author Organization Unknown Care Team Providers Care Screed Person Name Role Phone Unavailable Primary Care Provider Unavailabl e Unavailable Chronic Care Management Unavaila ble Summary Purpose DataExchange Insurance Providers Payer name Policy type / Coverage type Covered libertarian ID Effective Begin Date Effective End Date [facility] [id number] Unknown Unknown Family History Family History data not found Medication Administered No Medication Administered data Reason For Visit No Reason For Visit data Medical Equipment No Medical Equipment data Advance Directives No Advance Directive data
--- OUTSIDE RECORDS SUMMARY | 2025-04-01 00:42 | XMS_ITS | CCD ---
Author Organization Unknown Care Team Providers Care Gate Shear Operator Name Role Phone Unavailable Primary Care Provider Unavailabl e Unavailable Chronic Care Management Unavaila ble Summary Purpose DataExchange Insurance Providers Payer name Policy type / Coverage type Covered libertarian ID Effective Begin Date Effective End Date [facility] [id number] Unknown Unknown Family History Family History data not found Medication Administered No Medication Administered data Reason For Visit No Reason For Visit data Medical Equipment No Medical Equipment data Advance Directives No Advance Directive data
--- OUTSIDE RECORDS SUMMARY | 2025-05-25 20:00 | XMS_ITS | Clinical Summary ---
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 Active 03-28 00:00: 00 TYPE 2 DIABETES MELLITUS WITHOUT COMPLICATION S Active 03-28 00:00: 00 CHRONIC OBSTRUCTIVE PULMONARY DISEASE, UNSPECIFIED Active 03-28 00:00: 00 ESSENTIAL (PRIMARY) HYPERTENSION Active 03-28 00:00: 00 OLD MYOCARDIAL INFARCTION Active 03-28 00:00: 00 HYPERLIPIDEM IA, UNSPECIFIED Active 03-28 00:00: 00 PRSNL HX OF TIA (TIA), AND CEREB INFRC W/O RESID DEFICITS Active 03-28 00:00: 00 UNSP DEMENTIA, UNSP SEVERITY, WITHOUT BEH/PSYCH/MO OD/ANX Active 03-28 00:00: 00 Allergies, Adverse Reactions, Alerts Allergy Name Allergy Type Status Severity Reaction(s) Onset Date Inactive Date Treating Clinician Comments NO KNOWN ALLERGIES Propensity to adverse reactions Active 03-28 10:00: 25 Vital Signs Vital Name Observation Time Observation Value Commen ts Temperature 2025-03-28 10:42:00.000 97.6 [degF] BMI (%) 2025-03-28 10:42:00.000 29 kg/m2 Height 2025-03-28 10:42:00.000 68 [in_us] Pulse 2025-03-28 10:42:00.000 68 /min O2 Saturation (%) 2025-03-28 10:42:00.000 96 % Respirations 2025-03-28 10:42:00.000 18 /min Weight (lbs) 2025-03-28 10:42:00.000 192 [lb_av] Systolic Blood Pressure 2025-03-28 10:42:00.000 114 mm [Hg] Diastolic Blood Pressure 2025-03-28 10:42:00.000 68 mm [Hg] Plan of Treatment Planned Activity Planned Date Details Comments Future Scheduled Test RN TO OBSE RVE, ASSESS, EVALUATE, AND DEVELOP AN INDIVIDUALIZED PLAN OF CARE. AGENCY MAY ACCEPT ORDERS FROM CONSULTING PHYSICIANS PCP RN TO OBSERVE AND ASSESS, GAS LEAK TESTER/DIRECTOR SOFTWARE TO OBSERVE FOR RISK FOR FALLS AND INSTRUCT IN FALL PREVENTION, HOME SAFETY, MEDICATION MANAGEMENT, INFECTION PREVENTION, AND NUTRITION MANAGEMENT. RN/GAS LEAK TESTER/DIRECTOR SOFTWARE NURSE MAY PERFORM O2 SATURATION LEVEL ON ADMISSION AND PRN FOR SOB FOR RN TO ASSESS/GAS LEAK TESTER TO OBSERVE PATIENT, WITH NOTIFICATION TO THE PHYSICIAN IF SATURATION IS 90% IN THE ABSENCE OF MORE SPECIFIC PARAMETERS FROM THE PHYSICIAN. AGENCY MAY PERFORM A RESUMPTION OF CARE VISIT FOLLOWING ANY HOSPITAL ADMISSION. RN/GAS LEAK TESTER/DIRECTOR SOFTWARE TO MONITOR CO-MORBID CONDITIONS LISTED ON THE PLAN OF CARE AND ANY NEW CONDITIONS THAT PRESENT THEMSELVES DURING THIS EPISODE TO IDENTIFY CHANGES AND INTERVENE TO MINIMIZE COMPLICATIONS. [code = RN TO OBSERVE, ASSESS, EVALUATE, AND DEVELOP AN INDIVIDUALIZED PLAN OF CARE. AGENCY MAY ACCEPT ORDERS FROM CONSULTING PHYSICIANS PCP RN TO OBSERVE AND ASSESS, GAS LEAK TESTER/DIRECTOR SOFTWARE TO OBSERVE FOR RISK FOR FALLS AND INSTRUCT IN FALL PREVENTION, HOME SAFETY, MEDICATION MANAGEMENT, INFECTION PREVENTION, AND NUTRITION MANAGEMENT. RN/GAS LEAK TESTER/DIRECTOR SOFTWARE NURSE MAY PERFORM O2 SATURATION LEVEL ON ADMISSION AND PRN FOR SOB FOR RN TO ASSESS/GAS LEAK TESTER TO OBSERVE PATIENT, WITH NOTIFICATION TO THE PHYSICIAN IF SATURATION IS 90% IN THE ABSENCE OF MORE SPECIFIC PARAMETERS FROM THE PHYSICIAN. AGENCY MAY PERFORM A RESUMPTION OF CARE VISIT FOLLOWING ANY HOSPITAL ADMISSION. RN/GAS LEAK TESTER/DIRECTOR SOFTWARE TO MONITOR CO-MORBID CONDITIONS LISTED ON THE PLAN OF CARE AND ANY NEW CONDITIONS THAT PRESENT THEMSELVES DURING THIS EPISODE TO IDENTIFY CHANGES AND INTERVENE TO MINIMIZE COMPLICATIONS.] Future Scheduled Test MEDICATION MANAGEMENT; RN/GAS LEAK TESTER/DIRECTOR SOFTWARE TO REVIEW MEDICATIONS FOR INTERACTIONS, EFFECTIVENESS OF DRUG THERAPY, AND SIGNS/SYMPTOMS OF ADVERSE REACTIONS. MAY INSTRUCT AND REINFORCE MEDICATION TEACHING RELATED TO THE USE OF MEDICATIONS, DOSAGE, FREQUENCY, PURPOSE, SIDE EFFECTS, AND TO REPORT COMPLICATIONS. [code = MEDICATION MANAGEMENT; RN/GAS LEAK TESTER/DIRECTOR SOFTWARE TO REVIEW MEDICATIONS FOR INTERACTIONS, EFFECTIVENESS OF DRUG THERAPY, AND SIGNS/SYMPTOMS OF ADVERSE REACTIONS. MAY INSTRUCT AND REINFORCE MEDICATION TEACHING RELATED TO THE USE OF MEDICATIONS, DOSAGE, FREQUENCY, PURPOSE, SIDE EFFECTS, AND TO REPORT COMPLICATIONS.] Future Scheduled Test CARDIOVASC ULAR SYSTEM; RN TO ASSESS/TEACH, GAS LEAK TESTER/DIRECTOR SOFTWARE TO OBSERVE/TEACH RELATED TO ALTERED CARDIOVASCULAR STATUS TO MINIMIZE COMPLICATIONS AND REDUCE HOSPITALIZATION. [code = CARDIOVASCULAR SYSTEM; RN TO ASSESS/TEACH, GAS LEAK TESTER/DIRECTOR SOFTWARE TO OBSERVE/TEACH RELATED TO ALTERED CARDIOVASCULAR STATUS TO MINIMIZE COMPLICATIONS AND REDUCE HOSPITALIZATION.] Future Scheduled Test ANGINA MAN AGEMENT; RN TO ASSESS AND TEACH, GAS LEAK TESTER/DIRECTOR SOFTWARE TO OBSERVE AND TEACH WARNING SIGNS AND SYMPTOMS TO AVOID HOSPITALIZATION. [code = ANGINA MANAGEMENT; RN TO ASSESS AND TEACH, GAS LEAK TESTER/DIRECTOR SOFTWARE TO OBSERVE AND TEACH WARNING SIGNS AND SYMPTOMS TO AVOID HOSPITALIZATION.] Future Scheduled Test RESPIRATOR Y SYSTEM MANAGEMENT; RN TO ASSESS AND TEACH, GAS LEAK TESTER/DIRECTOR SOFTWARE TO OBSERVE AND TEACH RELATED TO ALTERED RESPIRATORY STATUS TO MINIMIZE COMPLICATIONS AND REDUCE HOSPITALIZATION. [code = RESPIRATORY SYSTEM MANAGEMENT; RN TO ASSESS AND TEACH, GAS LEAK TESTER/DIRECTOR SOFTWARE TO OBSERVE AND TEACH RELATED TO ALTERED RESPIRATORY STATUS TO MINIMIZE COMPLICATIONS AND REDUCE HOSPITALIZATION.] Future Scheduled Test COPD MANAG EMENT; RN TO ASSESS AND TEACH, GAS LEAK TESTER/DIRECTOR SOFTWARE TO OBSERVE AND TEACH SIGNS/SYMPTOMS OF COPD EXACERBATION AND PROVIDE EARLY INTERVENTIONS TO MINIMIZE RISK OF HOSPITALIZATION. RN/GAS LEAK TESTER/DIRECTOR SOFTWARE TO INSTRUCT ON SELF-CARE MANAGEMENT INCLUDING BREATHING TECHNIQUES, AIRWAY CLEARANCE, AND PROPER USE OF COPD MEDICATIONS. RN TO ASSESS AND TEACH, GAS LEAK TESTER/DIRECTOR SOFTWARE TO OBSERVE AND TEACH PATIENT/CAREGIVER ABILITY TO MONITOR AND RECORD VITAL SIGNS INCLUDING PULSE OXIMETRY AND BLOOD PRESSURE. PULSE OXIMETER AND BP MONITOR TO BE PROVIDED IF NEEDED [code = COPD MANAGEMENT; RN TO ASSESS AND TEACH, GAS LEAK TESTER/DIRECTOR SOFTWARE TO OBSERVE AND TEACH SIGNS/SYMPTOMS OF COPD EXACERBATION AND PROVIDE EARLY INTERVENTIONS TO MINIMIZE RISK OF HOSPITALIZATION. RN/GAS LEAK TESTER/DIRECTOR SOFTWARE TO INSTRUCT ON SELF-CARE MANAGEMENT INCLUDING BREATHING TECHNIQUES, AIRWAY CLEARANCE, AND PROPER USE OF COPD MEDICATIONS. RN TO ASSESS AND TEACH, GAS LEAK TESTER/DIRECTOR SOFTWARE TO OBSERVE AND TEACH PATIENT/CAREGIVER ABILITY TO MONITOR AND RECORD VITAL SIGNS INCLUDING PULSE OXIMETRY AND BLOOD PRESSURE. PULSE OXIMETER AND BP MONITOR TO BE PROVIDED IF NEEDED ] Future Scheduled Test SKIN INTEG RITY RN TO ASSESS AND TEACH, GAS LEAK TESTER/DIRECTOR SOFTWARE TO OBSERVE AND TEACH INTEGUMENTARY STATUS TO IDENTIFY CHANGES AND INTERVENE TO MINIMIZE COMPLICATIONS. PROVIDE SKILLED TEACHING OF GENERAL WOUND AND SKIN CARE AND PREVENTION RELATED TO POTENTIAL FOR OR ACTUAL ALTERED SKIN INTEGRITY [code = SKIN INTEGRITY RN TO ASSESS AND TEACH, GAS LEAK TESTER/DIRECTOR SOFTWARE TO OBSERVE AND TEACH INTEGUMENTARY STATUS TO IDENTIFY CHANGES AND INTERVENE TO MINIMIZE COMPLICATIONS. PROVIDE SKILLED TEACHING OF GENERAL WOUND AND SKIN CARE AND PREVENTION RELATED TO POTENTIAL FOR OR ACTUAL ALTERED SKIN INTEGRITY ] Future Scheduled Test PAIN MANAG EMENT; RN TO ASSESS AND TEACH, DIRECTOR SOFTWARE/GAS LEAK TESTER TO OBSERVE AND TEACH AND PROVIDE EDUCATION ON PAIN MANAGEMENT TECHNIQUES. [code = PAIN MANAGEMENT; RN TO ASSESS AND TEACH, DIRECTOR SOFTWARE/GAS LEAK TESTER TO OBSERVE AND TEACH AND PROVIDE EDUCATION ON PAIN MANAGEMENT TECHNIQUES.] Future Scheduled Test FALL REDUC TION MANAGEMENT; RN TO ASSESS AND OBSERVE, GAS LEAK TESTER/DIRECTOR SOFTWARE TO OBSERVE FALL RISK FACTORS AND EDUCATE PATIENT/CAREGIVER ON STRATEGIES TO MINIMIZE THE RISK OF FALLING. [code = FALL REDUCTION MANAGEMENT; RN TO ASSESS AND OBSERVE, GAS LEAK TESTER/DIRECTOR SOFTWARE TO OBSERVE FALL RISK FACTORS AND EDUCATE [...] End Date/Time Encounter Type Admission Type Attending [facility] Care Department Encounter ID Discharge Date Discharge Status Discharge Condition Discharge Reason Percent Goals Met 2025-03-28 00:00:00 2025-05-26 00:00:00 Outpatient WILFREDO KELLEY [facility] [id number] 100.00
--- OUTSIDE RECORDS SUMMARY | 2025-05-25 20:00 | XMS_ITS | Clinical Summary ---
Author Organization Unknown Care Team Providers Care Clay Preparation Supervisor Name Role Phone OBINNA GAGE, MUSA Unavailable Unavailable KARI PT, WILFREDO Unavailable Unavailable BILLIE FLEET ASSISTANT, JESSICA Unavailable Unavailable SAPPHIRE OT, MICA Unavailable Unavailable Payers Payer Name Policy Type Policy Number Effective Date Expira tion Date HOPEAUTH [id number] Problems Condition Name Condition Details Condition Category Status Onset Date Resolution Date Last Treatment Date Treating Clinician Comments HYPO-OSMOLAL ITY AND HYPONATREMIA Active 03-21 00:00: 00 ATHSCL HEART DISEASE OF [place] [employer] ART W UNSP ANG PCTRS Active [...] PHYSICIANS PCP RN TO OBSERVE AND ASSESS, SHAGGER/AIR PRESS OPERATOR TO OBSERVE FOR RISK FOR FALLS AND INSTRUCT IN FALL PREVENTION, HOME SAFETY, MEDICATION MANAGEMENT, INFECTION PREVENTION, AND NUTRITION MANAGEMENT. RN/SHAGGER/AIR PRESS OPERATOR NURSE MAY PERFORM O2 SATURATION LEVEL ON ADMISSION AND PRN FOR SOB FOR RN TO ASSESS/SHAGGER TO OBSERVE PATIENT, WITH NOTIFICATION TO THE PHYSICIAN IF SATURATION IS 90% IN THE ABSENCE OF MORE SPECIFIC PARAMETERS FROM THE PHYSICIAN. AGENCY MAY PERFORM A RESUMPTION OF CARE VISIT FOLLOWING ANY HOSPITAL ADMISSION. RN/SHAGGER/AIR PRESS OPERATOR TO MONITOR CO-MORBID CONDITIONS LISTED ON THE PLAN OF CARE AND ANY NEW CONDITIONS THAT PRESENT THEMSELVES DURING THIS EPISODE TO IDENTIFY CHANGES AND INTERVENE TO MINIMIZE COMPLICATIONS. [code = RN TO OBSERVE, ASSESS, EVALUATE, AND DEVELOP AN INDIVIDUALIZED PLAN OF CARE. AGENCY MAY ACCEPT ORDERS FROM CONSULTING PHYSICIANS PCP RN TO OBSERVE AND ASSESS, SHAGGER/AIR PRESS OPERATOR TO OBSERVE FOR RISK FOR FALLS AND INSTRUCT IN FALL PREVENTION, HOME SAFETY, MEDICATION MANAGEMENT, INFECTION PREVENTION, AND NUTRITION MANAGEMENT. RN/SHAGGER/AIR PRESS OPERATOR NURSE MAY PERFORM O2 SATURATION LEVEL ON ADMISSION AND PRN FOR SOB FOR RN TO ASSESS/SHAGGER TO OBSERVE PATIENT, WITH NOTIFICATION TO THE PHYSICIAN IF SATURATION IS 90% IN THE ABSENCE OF MORE SPECIFIC PARAMETERS FROM THE PHYSICIAN. AGENCY MAY PERFORM A RESUMPTION OF CARE VISIT FOLLOWING ANY HOSPITAL ADMISSION. RN/SHAGGER/AIR PRESS OPERATOR TO MONITOR CO-MORBID CONDITIONS LISTED ON THE PLAN OF CARE AND ANY NEW CONDITIONS THAT PRESENT THEMSELVES DURING THIS EPISODE TO IDENTIFY CHANGES AND INTERVENE TO MINIMIZE COMPLICATIONS.] Future Scheduled Test MEDICATION MANAGEMENT; RN/SHAGGER/AIR PRESS OPERATOR TO REVIEW MEDICATIONS FOR INTERACTIONS, EFFECTIVENESS OF DRUG THERAPY, AND SIGNS/SYMPTOMS OF ADVERSE REACTIONS. MAY INSTRUCT AND REINFORCE MEDICATION TEACHING RELATED TO THE USE OF MEDICATIONS, DOSAGE, FREQUENCY, PURPOSE, SIDE EFFECTS, AND TO REPORT COMPLICATIONS. [code = MEDICATION MANAGEMENT; RN/SHAGGER/AIR PRESS OPERATOR TO REVIEW MEDICATIONS FOR INTERACTIONS, EFFECTIVENESS OF DRUG THERAPY, AND SIGNS/SYMPTOMS OF ADVERSE REACTIONS. MAY INSTRUCT AND REINFORCE MEDICATION TEACHING RELATED TO THE USE OF MEDICATIONS, DOSAGE, FREQUENCY, PURPOSE, SIDE EFFECTS, AND TO REPORT COMPLICATIONS.] Future Scheduled Test CARDIOVASC ULAR SYSTEM; RN TO ASSESS/TEACH, SHAGGER/AIR PRESS OPERATOR TO OBSERVE/TEACH RELATED TO ALTERED CARDIOVASCULAR STATUS TO MINIMIZE COMPLICATIONS AND REDUCE HOSPITALIZATION. [code = CARDIOVASCULAR SYSTEM; RN TO ASSESS/TEACH, SHAGGER/AIR PRESS OPERATOR TO OBSERVE/TEACH RELATED TO ALTERED CARDIOVASCULAR STATUS TO MINIMIZE COMPLICATIONS AND REDUCE HOSPITALIZATION.] Future Scheduled Test ANGINA MAN AGEMENT; RN TO ASSESS AND TEACH, SHAGGER/AIR PRESS OPERATOR TO OBSERVE AND TEACH WARNING SIGNS AND SYMPTOMS TO AVOID HOSPITALIZATION. [code = ANGINA MANAGEMENT; RN TO ASSESS AND TEACH, SHAGGER/AIR PRESS OPERATOR TO OBSERVE AND TEACH WARNING SIGNS AND SYMPTOMS TO AVOID HOSPITALIZATION.] Future Scheduled Test RESPIRATOR Y SYSTEM MANAGEMENT; RN TO ASSESS AND TEACH, SHAGGER/AIR PRESS OPERATOR TO OBSERVE AND TEACH RELATED TO ALTERED RESPIRATORY STATUS TO MINIMIZE COMPLICATIONS AND REDUCE HOSPITALIZATION. [code = RESPIRATORY SYSTEM MANAGEMENT; RN TO ASSESS AND TEACH, SHAGGER/AIR PRESS OPERATOR TO OBSERVE AND TEACH RELATED TO ALTERED RESPIRATORY STATUS TO MINIMIZE COMPLICATIONS AND REDUCE HOSPITALIZATION.] Future Scheduled Test COPD MANAG EMENT; RN TO ASSESS AND TEACH, SHAGGER/AIR PRESS OPERATOR TO OBSERVE AND TEACH SIGNS/SYMPTOMS OF COPD EXACERBATION AND PROVIDE EARLY INTERVENTIONS TO MINIMIZE RISK OF HOSPITALIZATION. RN/SHAGGER/AIR PRESS OPERATOR TO INSTRUCT ON SELF-CARE MANAGEMENT INCLUDING BREATHING TECHNIQUES, AIRWAY CLEARANCE, AND PROPER USE OF COPD MEDICATIONS. RN TO ASSESS AND TEACH, SHAGGER/AIR PRESS OPERATOR TO OBSERVE AND TEACH PATIENT/CAREGIVER ABILITY TO MONITOR AND RECORD VITAL SIGNS INCLUDING PULSE OXIMETRY AND BLOOD PRESSURE. PULSE OXIMETER AND BP MONITOR TO BE PROVIDED IF NEEDED [code = COPD MANAGEMENT; RN TO ASSESS AND TEACH, SHAGGER/AIR PRESS OPERATOR TO OBSERVE AND TEACH SIGNS/SYMPTOMS OF COPD EXACERBATION AND PROVIDE EARLY INTERVENTIONS TO MINIMIZE RISK OF HOSPITALIZATION. RN/SHAGGER/AIR PRESS OPERATOR TO INSTRUCT ON SELF-CARE MANAGEMENT INCLUDING BREATHING TECHNIQUES, AIRWAY CLEARANCE, AND PROPER USE OF COPD MEDICATIONS. RN TO ASSESS AND TEACH, SHAGGER/AIR PRESS OPERATOR TO OBSERVE AND TEACH PATIENT/CAREGIVER ABILITY TO MONITOR AND RECORD VITAL SIGNS INCLUDING PULSE OXIMETRY AND BLOOD PRESSURE. PULSE OXIMETER AND BP MONITOR TO BE PROVIDED IF NEEDED ] Future Scheduled Test SKIN INTEG RITY RN TO ASSESS AND TEACH, SHAGGER/AIR PRESS OPERATOR TO OBSERVE AND TEACH INTEGUMENTARY STATUS TO IDENTIFY CHANGES AND INTERVENE TO MINIMIZE COMPLICATIONS. PROVIDE SKILLED TEACHING OF GENERAL WOUND AND SKIN CARE AND PREVENTION RELATED TO POTENTIAL FOR OR ACTUAL ALTERED SKIN INTEGRITY [code = SKIN INTEGRITY RN TO ASSESS AND TEACH, SHAGGER/AIR PRESS OPERATOR TO OBSERVE AND TEACH INTEGUMENTARY STATUS TO IDENTIFY CHANGES AND INTERVENE TO MINIMIZE COMPLICATIONS. PROVIDE SKILLED TEACHING OF GENERAL WOUND AND SKIN CARE AND PREVENTION RELATED TO POTENTIAL FOR OR ACTUAL ALTERED SKIN INTEGRITY ] Future Scheduled Test PAIN MANAG EMENT; RN TO ASSESS AND TEACH, AIR PRESS OPERATOR/SHAGGER TO OBSERVE AND TEACH AND PROVIDE EDUCATION ON PAIN MANAGEMENT TECHNIQUES. [code = PAIN MANAGEMENT; RN TO ASSESS AND TEACH, AIR PRESS OPERATOR/SHAGGER TO OBSERVE AND TEACH AND PROVIDE EDUCATION ON PAIN MANAGEMENT TECHNIQUES.] Future Scheduled Test FALL REDUC TION MANAGEMENT; RN TO ASSESS AND OBSERVE, SHAGGER/AIR PRESS OPERATOR TO OBSERVE FALL RISK FACTORS AND EDUCATE PATIENT/CAREGIVER ON STRATEGIES TO MINIMIZE THE RISK OF FALLING. [code = FALL REDUCTION MANAGEMENT; RN TO ASSESS AND OBSERVE, SHAGGER/AIR PRESS OPERATOR TO OBSERVE FALL RISK FACTORS AND EDUCATE [...] End Date/Time Encounter Type Admission Type Attending [facility] Care Department Encounter ID Discharge Date Discharge Status Discharge Condition Discharge Reason Percent Goals Met 2025-03-28 00:00:00 2025-05-26 00:00:00 Outpatient WILFREDO KEL[facility] [id number] 100.00
== END 2025-03-30 23:59 | disposition home or self-care (01) ==
LOC: LAB.DROPOF 03-31 23:40
PROVIDERS: PCP Family Medicine; Visit Provider Family Medicine
DX: E87.1 Hypo-osmolality and hyponatremia (principal)
CPT/HCPCS: 80053

== ENCOUNTER 2025-04-06 13:46 | Outpatient (CLI) | payer MEDICARE, SELFPAY ==
--- OUTSIDE RECORDS SUMMARY | 2025-04-06 13:49 | XMS_ITS | Encounter Summary ---
Author Organization [employer] i[employer] Address [address] [facility] [place] [address] Care Team Providers Care Product Safety Professional Name Role Phone Unavailable Primary Care Provider Unavailabl e Encounter Details Date Type Department Care Team (Late st Contact Info) Description 01/03/2022 Transcribed Document [facility] [place] [facility] [place] [address] ProviderCarlos MD [facility] [place], [place] [address] Social History Tobacco Use Types Packs/Day Years [...] EDT Performed On: 01/03/2022 20:32 EDT by Ang Regan NON EMP RN Advance Directive Patient [...] [place] Emergency Contact #1 Phone Number : [phone] Emergency Contact #1 Relationship : girlfriend Emergency Contact #2 : none Emergency Contact #2 Phone Number : none Emergency Contact #2 Relationship : none Primary Language : Armenian Communication Barrier : Cognitive Buffing Line Set Up Worker Needed : No Ang Regan NON EMP [...] Level : 46 or > High Risk [place] Fall Interventions : Adequate lighting, Assistive devices [...] Source : Stated Height Entry Format : [place] Height, Feet : 5 ft(Converted to: 152 cm, 60 Inch) Height, Inches : 8 Inch(Converted to: 0 ft 8 Inch, 20.32 cm) Clinical Height : 172.72 cm [place] Body Weight : 67 kg Ang Regan NON EMP RN - 01/03/2022 21:38 EDT Estimated Weight Type of Weight Measurement Est : [place] Weight, est lb : 260 lb(Converted to: [...] NON EMP RN - 01/03/2022 21:38 EDT [place] Suicide Severity Rating Scale (C-SSRS) CSSRS Past [...]
--- OUTSIDE RECORDS SUMMARY | 2025-04-06 13:49 | XMS_ITS | Encounter Summary ---
Author Organization [employer] [facility] Address [address] [facility] [place] [address] Care Team Providers Care Elastic Tape Inserter Name Role Phone Unavailable Primary Care Provider Unavailabl e Encounter Details Date Type Department Care Team (Late st Contact Info) Description 01/03/2022 Transcribed Document [facility] [place] [address] [place] [address] ProviderCarlos MD [address] [place] [address] Social History Tobacco Use Types Packs/Day Years [...] 01/03/2022 21:25 EDT by Mikaela Mendoza Patient Spring Encaser Phan Phone Call for Consults Consult Phone Call/Page Attempt : First call Consult Reason : ZAHRA Consult, Additional Information : pt was seen on by Dr. Sanchez [place]. Mikaela Mendoza, Patient Spring Encaser I - 01/04/2022 17:26 EDT documented in this encounter Plan of Treatment Not on file documented as of this encounter Visit Diagnoses Not on filedocumented in this encounter
--- OUTSIDE RECORDS SUMMARY | 2025-04-06 13:49 | XMS_ITS | Encounter Summary ---
Author Organization [employer] iatives Address [address] [place] [address] Care Team Providers Care Nut Culler Name Role Phone Unavailable Primary Care Provider Unavailabl e Encounter Details Date Type Department Care Team (Late st Contact Info) Description 01/03/2022 Transcribed Document [facility] [place] [address] [place] [address] ProviderCarlos MD [facility] [place] [address] Social History Tobacco Use Types Packs/Day Years [...] htn chf with unknown lvef presents [facility] from outside facility where he allegedly presented [...] in accordance with the flexibilities announced by [facility] limited examination is performed. General: Well [...] # 0.72 x10(3)/uL (Low) 01/03/2022 21:48 EDT [place] % 8.9 % 01/03/2022 21:48 EDT [place] # 0.73 K/uL 01/03/2022 21:48 EDT Eos [...]
--- OUTSIDE RECORDS SUMMARY | 2025-04-06 13:49 | XMS_ITS | Referral Summary ---
Author Organization [employer] i[employer] Address [address] [place] [address] Care Team Providers Care Twister Frame Tender Name Role Phone Unavailable Primary Care [...]
--- OUTSIDE RECORDS SUMMARY | 2025-04-06 13:49 | XMS_ITS | Encounter Summary ---
Author Organization [employer] i[employer] Address [address] [place] [address] Care Team Providers Care Commercial Litigation Attorney Name Role Phone Unavailable Primary Care Provider Unavailabl e Encounter Details Date Type Department Care Team (Late st Contact Info) Description 01/04/2022 Transcribed Document [facility] [place] [address] [place] [address] ProviderCarlos MD [address] [place] [address] Social History Tobacco Use Types Packs/Day Years [...] 01/04/2022 10:16 EDT by Mikaela Mendoza Patient Annealing Furnace Operator Phan Phone Call for Consults Consult Phone Call/Page Attempt : First call Consult Reason : ZAHRA Provider Service Notified Name : Nephrology Physician Returning Call : SEBASTIÁN RUTH MD-NEP Consult, Additional Information : Consult called on 01/04/2022 spoke with Sebastián Montanez. is aware of the consult and pt is on his list. Mikaela Mendoza Patient Annealing Furnace Operator I - 01/04/2022 10:49 EDT documented in this encounter Plan of Treatment Not on file documented as of this encounter Visit Diagnoses Not on filedocumented in this encounter
--- OUTSIDE RECORDS SUMMARY | 2025-04-06 13:49 | XMS_ITS | Encounter Summary ---
Author Organization [employer] i[employer] Address [address] [place] [address] Care Team Providers Care Hands Assembler Name Role Phone Unavailable Primary Care Provider Unavailabl e Encounter Details Date Type Department Care Team (Late st Contact Info) Description 01/04/2022 Transcribed Document [facility] [place] [address] [place] [address] ProviderCarlos MD [address] [place], [place] [address] Social History Tobacco Use Types Packs/Day Years [...] Paulson and Dr. Rocha Note dictated with ICEdot recognition system Problem List/Past Medical History Ongoing [...] mg= 1 Tab, Oral, Daily Vitamin D2, [address]282 Units= 1 Cap, Oral, Weekly Home acetaminophen-oxyCODONE [...] Allergies Imdur Social History , [facility], former smoker, no active illegal drug use [...] # 0.72 x10(3)/uL (Low) 01/03/2022 21:48 EDT [place] % 11.9 % (High) 01/04/2022 06:38 EDT [place] % 8.9 % 01/03/2022 21:48 EDT [place] # 0.80 K/uL 01/04/2022 06:38 EDT [place] # 0.73 K/uL 01/03/2022 21:48 EDT Eos [...] 01/03/2022 21:48 EDT Electronically signed by Talya [facility] Conversion Freezer Machine Operator Cerner at 02/02/2023 1:41 PM CDT documented in this encounter Plan of Treatment Not on file documented as of this encounter Visit Diagnoses Not on filedocumented in this encounter
--- OUTSIDE RECORDS SUMMARY | 2025-04-06 13:49 | XMS_ITS | Encounter Summary ---
Author Organization [employer] iatives Address [address] [place] [address] Care Team Providers Care Flatbed Company Driver Name Role Phone Unavailable Primary Care Provider Unavailabl e Encounter Details Date Type Department Care Team (Late st Contact Info) Description 01/03/2022 Transcribed Document [facility] [place] Medicine [address] [place] [address] ProviderCarlos MD [address] [place] [address] Social History Tobacco Use Types Packs/Day Years [...]
--- OUTSIDE RECORDS SUMMARY | 2025-04-06 13:49 | XMS_ITS | Encounter Summary ---
Author Organization [employer] Address [address] [place] [address] Care Team Providers Care Power Driven Brush Maker Name Role Phone Unavailable Primary Care Provider Unavailabl e Encounter Details Date Type Department Care Team (Late st Contact Info) Description 01/04/2022 Transcribed Document [facility] [place] Family Medicine [address] [place] [address] ProviderCarlos MD [facility] [place], [place] [address] Social History Tobacco Use Types Packs/Day Years [...] the text rendition version of the form. Electronically signed by Jayde Babin Conversion Associate Director Data & Analytics [place] at 02/08/2023 12:59 PM CDT documented in this encounter Plan of Treatment Not on file documented as of this encounter Visit Diagnoses Not on filedocumented in this encounter
--- OUTSIDE RECORDS SUMMARY | 2025-04-06 13:49 | XMS_ITS | Encounter Summary ---
Author Organization [employer] i[employer] Address [address] [place] [address] Care Team Providers Care Publishing Director Name Role Phone Unavailable Primary Care Provider Unavailabl e Encounter Details Date Type Department Care Team (Late st Contact Info) Description 01/06/2022 Transcribed Document [facility] [place] [address] [place] [address] ProviderCarlos MD [address] [place] [address] Social History Tobacco Use Types [...] (JAN 03) Radiology Results (Last 48 hours) [id number] -- 01/03/2022 20:35 CR Abdomen 1 Vw [...] in 2 days. Ana Tabor Hospitalist pager- [phone] documented in this encounter Plan of Treatment Not on file documented as of this encounter Visit Diagnoses Not on filedocumented in this encounter
--- OUTSIDE RECORDS SUMMARY | 2025-04-06 13:49 | XMS_ITS | Encounter Summary ---
Author Organization [employer] Address [address] [place] [address] Care Team Providers Care Pvc Monitor Name Role Phone Unavailable Primary Care Provider Unavailabl e Encounter Details Date Type Department Care Team (Late st Contact Info) Description 01/06/2022 Transcribed Document [facility] [place] [address] [place] [address] ProviderCarlos MD [address] [place], [place] [address] Social History Tobacco Use Types Packs/Day Years [...] 15:50 EDT by RODDY PHILLIPS RN - Movie Producer Initial Assessment I Previously Documented Living Environment : No qualifying data available. Living Situation : Home Patient Lives With : Significant other(s) Emergency Contact #1 : Izabela Sanchezn Emergency Contact #1 Phone Number : [phone] Emergency Contact #1 Relationship : girlfriend Emergency [...] Guardian : No RODDY PHILLIPS RN - Movie Producer - 01/06/2022 15:50 EDT Initial Assessment II Current Home Treatments and Equipment : DONTE BradleyH, RN - Movie Producer - 01/06/2022 15:50 EDT Discharge Needs I Anticipated Discharge Date : 01/07/2022 EDT Anticipated Discharge To, CM : Home independently Current Home Treatment/Equipment : Current Home Treatment/Equipment No qualifying data available. Documentation Status Complete : Yes RODDY PHILLIPS RN - Movie Producer - 01/06/2022 15:50 EDT Discharge Needs II Professional Skilled Services : Professional Skilled Services No qualifying data available. Needs Assistance with Transportation : No Patient Discharge Goal : Home RODDY PHILLIPS RN - Movie Producer - 01/06/2022 15:50 EDT Narrative Note Narrative [...] girlfriend to transport. RODDY PHILLIPS RN - Movie Producer - 01/06/2022 15:50 EDT documented in this encounter Plan of Treatment Not on file documented as of this encounter Visit Diagnoses Not on filedocumented in this encounter
--- OUTSIDE RECORDS SUMMARY | 2025-04-06 13:49 | XMS_ITS | Encounter Summary ---
Author Organization [employer] Address [address] [place] [address] Care Team Providers Care Regional Liaison Name Role Phone Unavailable Primary Care Provider Unavailabl e Encounter Details Date Type Department Care Team (Late st Contact Info) Description 01/03/2022 Transcribed Document [facility] [place] [address] [place] [address] ProviderCarlos MD [address] [place] [address] Social History Tobacco Use Types Packs/Day Years [...] Monica Callahan RN - 01/05/2022 0:18 EDT documented in this encounter Plan of Treatment Not on file documented as of this encounter Visit Diagnoses Not on filedocumented in this encounter
--- OUTSIDE RECORDS SUMMARY | 2025-04-06 13:49 | XMS_ITS | Encounter Summary ---
Author Organization [employer] Address [address] [place] [address] Care Team Providers Care Oncology Transplant Network Manager Name Role Phone Unavailable Primary Care Provider Unavailabl e Encounter Details Date Type Department Care Team (Late st Contact Info) Description 01/06/2022 Transcribed Document [facility] [place] [address] [place] [address] ProviderCarlos MD [address] [place] [address] Social History Tobacco Use Types Packs/Day Years [...] Historical ProviderMD - 01/06/2022 2:00 AM CDT Summer Child Caregiver Details Entered On: 01/06/2022 2:10 EDT Performed [...]
--- OUTSIDE RECORDS SUMMARY | 2025-04-06 13:49 | XMS_ITS | Encounter Summary ---
Author Organization [employer] i[employer] Address [address] [place] [address] Care Team Providers Care Nitriles Lab Technician Name Role Phone Unavailable Primary Care Provider Unavailabl e Encounter Details Date Type Department Care Team (Late st Contact Info) Description 01/04/2022 Transcribed Document [facility] [place] [address] [place] [address] ProviderCarlos MD [facility] [place], [place] [address] Social History Tobacco Use Types Packs/Day Years [...] Associated Diagnoses: None Author: ANA TORRES, Subjective 01/04 d/w girlfriend- yajaira via [...] when ZAHRA resolved. Ana Tabor Hospitalist pager- [phone] documented in this encounter Plan of Treatment Not on file documented as of this encounter Visit Diagnoses Not on filedocumented in this encounter
--- OUTSIDE RECORDS SUMMARY | 2025-04-06 13:49 | XMS_ITS | Encounter Summary ---
Author Organization [facility] Address [address] [facility] [place] [address] Care Team Providers Care Risk Management Manager Name Role Phone Unavailable Primary Care Provider Unavailabl e Encounter Details Date Type Department Care Team (Late st Contact Info) Description 01/04/2022 Transcribed Document [facility] [address] [place] [address] ProviderCarlos MD [address] [place], [place] [address] Social History Tobacco Use Types Packs/Day Years [...] Policy Numbers : Insurance 1 Health Plan: [place] Medicaid Policy Number: [id number] Authorization Number: Insurance Primary Name : [place] Medicaid Policy Number: [id number] Reference Number-Primary : [id number] Authorized Service Begin Date-Primary : 01/03/2022 EDT Authorization Comments-Primary : AUTH SUBMITTED VIA [employer] /w CLINICALS ATTACHED Historical Authorization Comments-Primary : No Authorization Comments Found TERESA RUEDA RN - 01/04/2022 15:27 EDT documented in this encounter Plan of Treatment Not on file documented as of this encounter Visit Diagnoses Not on filedocumented in this encounter
--- OUTSIDE RECORDS SUMMARY | 2025-04-06 13:50 | XMS_ITS | Encounter Summary ---
Author Organization [employer] Address [address] [place] [address] Care Team Providers Care Security Controls Assessor Name Role Phone Unavailable Primary Care Provider Unavailabl e Encounter Details Date Type Department Care Team (Late st Contact Info) Description 01/07/2022 Transcribed Document [facility] [address] [place] [address] ProviderCarlos MD [address] [place], [place] [id number] Social History Tobacco Use Types Packs/Day Years [...] Policy Numbers : Insurance 1 Health Plan: [place] Medicaid Policy Number: [id number] Authorization Number: Insurance Primary Name : [place] Medicaid Policy Number: [id number] Authorization Status-Primary : Awaiting callback Reference Number-Primary : [id number] Authorized Service Begin Date-Primary : 01/03/2022 EDT Authorization Comments-Primary : Clinicals faxed via [employer] for IP approval Historical Authorization Comments-Primary : Comment 1: AUTH SUBMITTED VIA [employer] /w CLINICALS ATTACHED (Olive Dolan RN 01/04/2022 15:27) ISAIAS NAVARRO RN - 01/07/2022 12:21 EDT documented in this encounter Plan of Treatment Not on file documented as of this encounter Visit Diagnoses Not on filedocumented in this encounter
--- OUTSIDE RECORDS SUMMARY | 2025-04-06 13:50 | XMS_ITS | Encounter Summary ---
Author Organization [employer] Address [address] [place] [address] Care Team Providers Care Fire Systems Inspector Name Role Phone Unavailable Primary Care Provider Unavailabl e Encounter Details Date Type Department Care Team (Late st Contact Info) Description 01/08/2022 Transcribed Document [facility] [place] [address] [place] [address] ProviderCarlos MD [facility] [place], [place] [address] Social History Tobacco Use Types Packs/Day Years [...] On: 01/08/2022 8:33 EDT by Celia Rodriguez, MACHINE REPAIRER MAINTENANCE Patient Resource Center Provider Status : EST Other Established Provider Name : Kaveh Ryan Patient Phone Number : [phone] Patient Insurance Type : Medicaid (ex. [employer], [...] at ED : Other Primary Language : Cymraes Patient Resource Center Comment : PCP and NEPH appts made Follow Up Needed : Celia James, MACHINE REPAIRER MAINTENANCE - 01/08/2022 8:33 EDT Electronically signed by [facility] Conversion Hub Cutter Cerner at 02/02/2023 2:06 PM CDT documented in this encounter Plan of Treatment Not on file documented as of this encounter Visit Diagnoses Not on filedocumented in this encounter
--- OUTSIDE RECORDS SUMMARY | 2025-04-06 13:50 | XMS_ITS | Encounter Summary ---
Author Organization [employer] iatives Address [address] [facility] [place] [address] Care Team Providers Care Dental Laboratory Worker Name Role Phone Unavailable Primary Care Provider Unavailabl e Encounter Details Date Type Department Care Team (Late st Contact Info) Description 01/06/2022 Transcribed Document [facility] [place] [address] [place] [address] ProviderCarlos MD [address] [place] [address] Social History Tobacco Use Types Packs/Day Years [...] On: 01/06/2022 13:33 EDT by Donaldo Darden Phone Representative Cert Lead Meds to Bed Enrollment Patient Enrollment Decision: : Yes/enroll in meds to bed program Donaldo Darden Phone Representative Cert Lead - 01/06/2022 13:33 EDT documented in this encounter Plan of Treatment Not on file documented as of this encounter Visit Diagnoses Not on filedocumented in this encounter
--- OUTSIDE RECORDS SUMMARY | 2025-04-06 13:50 | XMS_ITS | Encounter Summary ---
Author Organization [facility] [employer] iatives Address [address] [place] [address] Care Team Providers Care Automatic Vulcanizing Lead Operator Name Role Phone Unavailable Primary Care Provider Unavailabl e Encounter Details Date Type Department Care Team (Late st Contact Info) Description 01/08/2022 Transcribed Document [facility] [place] [address] [place] [address] ProviderCarlos MD [address] [place] [address] Social History Tobacco Use Types Packs/Day Years [...] 12:49 EDT by RODDY PHILLIPS RN - Legal Manager Final Discharge Planning Discharge Arrangements : Patient [...] : Yes Discharge To Care Management : Home/Residential/Long Term or Self Care -01 JACQUELINE, RODDY, RN - Legal Manager - 01/08/2022 12:49 EDT documented in this encounter Plan of Treatment Not on file documented as of this encounter Visit Diagnoses Not on filedocumented in this encounter
--- OUTSIDE RECORDS SUMMARY | 2025-04-06 13:50 | XMS_ITS | Encounter Summary ---
Author Organization [employer] i[employer] Address [address] [place] [address] Care Team Providers Care Law Enforcement Officer Name Role Phone Unavailable Primary Care Provider Unavailabl e Encounter Details Date Type Department Care Team (Late st Contact Info) Description 01/08/2022 Transcribed Document [facility] [place] [address] [place] [address] ProviderCarlos MD [address] [place], [place] [address] Social History Tobacco Use Types Packs/Day Years [...] 01/08/2022 2:24 PM CDT SAMINA BONILLA, [address] [place] [address] Re: INEZ SHOOK Date of Visit: 01/03/2022 [...] is strictly prohibited. Sincerely, ANA TORRES [address] [facility] [address] [place] [address] The following document(s) were included in the letter: January 08, 2022 10:37:00 EDT - (01/08/2022) Discharge Summary * documented in this encounter Plan of Treatment Not on file documented as of this encounter Visit Diagnoses Not on filedocumented in this encounter
--- OUTSIDE RECORDS SUMMARY | 2025-04-06 13:50 | XMS_ITS | Encounter Summary ---
Author Organization [employer] iatives Address [address] [place] [address] Care Team Providers Care Reclamation Kettle Tender Name Role Phone Unavailable Primary Care Provider Unavailabl e Encounter Details Date Type Department Care Team (Late st Contact Info) Description 01/06/2022 Transcribed Document [facility] [place] [address] [place] [address] ProviderCarlos MD [facility] [place], [place] [address] Social History Tobacco Use Types Packs/Day Years [...] Medical At risk for violence / IMO [id number] / Confirmed History of obstructive sleep apnea / IMO [id number] / Confirmed, Active Problems (8) At risk [...]
--- OUTSIDE RECORDS SUMMARY | 2025-04-06 13:50 | XMS_ITS | Encounter Summary ---
Author Organization [employer] iatives Address [address] [facility] [place] [address] Care Team Providers Care Caseworker Intake Name Role Phone Unavailable Primary Care Provider Unavailabl e Encounter Details Date Type Department Care Team (Late st Contact Info) Description 01/08/2022 Transcribed Document [facility] [place] [address] [place] [address] ProviderCarlos MD [address] [place], [place] [address] Social History Tobacco Use Types Packs/Day Years [...] LDL Level No qualifying data available. Lilian Luceor RN - 01/08/2022 7:27 EDT Education Topics: [...]
--- OUTSIDE RECORDS SUMMARY | 2025-04-06 13:50 | XMS_ITS | Encounter Summary ---
Author Organization [employer] iatives Address [address] [place] [address] Care Team Providers Care Advanced Practice Provider Name Role Phone Unavailable Primary Care Provider Unavailabl e Encounter Details Date Type Department Care Team (Late st Contact Info) Description 01/08/2022 Transcribed Document [facility] [place] [address] [place] [address] ProviderCarlos MD [address] [place] [address] Social History Tobacco Use Types Packs/Day Years [...]
--- OUTSIDE RECORDS SUMMARY | 2025-04-06 13:50 | XMS_ITS | Encounter Summary ---
Author Organization [employer] iatives Address [address] [place] [address] Care Team Providers Care Risk Control Analyst Name Role Phone Unavailable Primary Care Provider Unavailabl e Encounter Details Date Type Department Care Team (Late st Contact Info) Description 01/07/2022 Transcribed Document [facility] [place] Family Medicine [address] [place] [address] ProviderCarlos MD [facility] [place], [place] [address] Social History Tobacco Use Types Packs/Day Years [...] Medical At risk for violence / IMO [id number] / Confirmed History of obstructive sleep apnea / IMO [id number] / Confirmed, Active Problems (8) At risk [...]
--- OUTSIDE RECORDS SUMMARY | 2025-04-06 13:50 | XMS_ITS | Clinical Summary ---
Author Organization [facility] Address [address] [place] [address] Care Team Providers Care Insurance Claims Representative Name Role Phone Kaveh Ryan MD Primary Care Provider + [phone] Kalli Shipley MD Unavailable + [phone] Allergies Active Allergy Reactions Criticality Noted Date [...] the morning. 05/16/20 22 Active HYDROcodone-acetam inophen ([place]) 5-325 MG tablet 01/27/20 23 Active nitroglycerin [...] needed for erectile dysfunction. Active HYDROcodone-acetam inophen ([place]) 7.5-325 MG tablet Take 7.5 tablets (56.25 [...] (02/25/2022): Added automatically from request for surgery [id number] Thrombocytopenia Resolved Problems Problem Noted Date Diagnosed [...] pending Monitor for decline in Neuro status Immunizations Immunization Administration Dates Next Due Influenza, [...] Description 05/12/2025 10:40 AM EDT Office Visit [facility] [address] [place] [address] Juliann Adrian, MEAT CLERK [address] [address] Health Maintenance Due Date Last Done [...] 2019 [facility]Y-Diabetes: Hemoglobin A1C 02/25/202307/2022, 01/30/2022, 10/15/2015 [id number] Vaccine ( season) 2024 07/21/2022, 09/09/2021, 01/16/2021, [...] this topic Medical Devices Implanted Type Area Railroad Construction Director Device Identifier Shelf Expiration Date Model / Serial / Lot Graft Collagen 5x5cm Durepair Mater - [id number] Implanted:Qty: 1 on 02/26/2022 by Martin Banegas MD at [facility] [employer] (Tissue [id number] 07/18/2023 [id number] / / [id number] Cement Bone Pneum Mix 5cc Strl - [id number] Implanted:Qty: 1 on 02/26/2022 by Martin Banegas MD at [facility]-[id number] 12/16/2022 615.05 .01S / / [id number] Procedures Procedure Name Priority Date/Time Associated Diagnosis Comments HEPATITIS C ANTIBODY - ED W/REFLEX TO HCV QUANT PCR STAT 03/19/2022 10:48 AM EDT HEMOGLOBIN A1C Add-On 01/30/2022 8:46 PM EDT from Last 3 Months or Most Recently Relevant to Health Maintenance Results * [place] Hepatitis C Antibody (03/19/2022 10:48 AM EDT) Hepatitis C Antibody Negative Negative 03/19/2022 12:52 PM EDT [facility] Blood Venous blood specimen / Unknown Venipuncture / Unknown 03/19/2022 10:48 AM EDT 03/19/2022 11:14 AM EDT Giles [place] MD LAB BLOOD ORDERABLES Radha alves Result [facility] [address] [place] [address] * (ABNORMAL) Hemoglobin A1c (01/30/2022 8:46 PM [...] Adults <6.0% Children and Adolescents <7.5% Source: [place] Diabetes Association. Standards of medical care in diabetes,2017. Diabetes Care.2017:40 (suppl 1):S1-S135. HbA1c assay performed by an ion-exchange chromatography method that is certified traceable to the DCCT. Omid Steven MD LAB BLOOD ORDERABLES Final Result [facility] [address] [place] [address] from Last 3 Months or Most Recently Relevant to Health Maintenance Insurance [employer] MEDICARE Advance Directives * DNR/DNI (Latest Code Status [...] would not be sustained on a ventilator termite treater helper. Question Answer Comments DNR determined on/before admission [...] of Healthcare Surrogate: Elias Maldonado Care Teams Insurance Claims Representative Relationship Specialty Start Date End Date Kaveh Ryan MD [address] [place] [address] PCP - General 05/28/22 Kalli Shipley MD [id number] [place] [address] Service Attending Neurology 05/28/22
--- OUTSIDE RECORDS SUMMARY | 2025-04-06 13:50 | XMS_ITS | Encounter Summary ---
Author Organization [employer] iatives Address [address] [place] [address] Care Team Providers Care Metal Window Frame Maker Name Role Phone Unavailable Primary Care Provider Unavailabl e Encounter Details Date Type Department Care Team (Late st Contact Info) Description 01/08/2022 Transcribed Document [facility] [place] Family Medicine [address] [place] [address] ProviderCarlos MD [address] [place], [place] [address] Social History Tobacco Use Types Packs/Day Years [...] Follow these instructions at home: ??? Take yikq-vah-dtagpob and prescription medicines only as told by your health care provider. ??? Weigh yourself daily. Your target weight is lb ( kg). ? Call your health care provider if you gain more than lb ( kg) in a day, or more than lb ( kg) in one week. ??? Eat a heart-healthy diet. Work with a diet and marketing communications specialist (dietitian) to create an eating plan that is best for you. ??? Keep all follow-up visits as told by your health care provider. This is important. Where to find more information ??? [place] Heart Association: www.heart.org Summary ??? Follow the [...] provider. Document Revised: 09/17/2018 Document Reviewed: 11/14/2017 Else[employer]PAD Patient Education ? 2020 [employer]. Endocrinology Carbohydrate Counting for Diabetes Mellitus, [...] foods that contain carbohydrates: ??? Rice. ??? [place]. ??? Milk. ??? Strawberries. 2. Calculate how [...] snacks. Where to find more information ??? [place] Diabetes Association: www.diabetes.org ??? Centers for Disease [...] provider. Document Revised: 10/04/2020 Document Reviewed: 10/05/2020 [employer] Patient Education ? 2020 [employer]. Diabetes Mellitus and Skin Care Diabetes, [...] sclerosis). ??? Brown or red, ring-shaped or ifyl-pija-lirrqs patches of skin on the ears or [...] provider. Document Revised: 07/10/2020 Document Reviewed: 07/24/2020 [employer] Patient Education ? 2020 [employer]. Diabetes Mellitus and Nutrition, Adult When [...] Berries. Apples. Oranges. Peaches. Apricots. Plums. Grapes. [place]. Papaya. Pomegranate. Kiwi. Cherries. Vegetables Lettuce. Spinach. Leafy greens, including kale, chard, giovanni greens, and mustard greens. Beets. Cauliflower. Cabbage. Broccoli. Carrots. Green beans. Tomatoes. Peppers. Onions. Cucumbers. [place] sprouts. Grains Whole grains, such as whole-wheat [...] Do I need to meet with a adult educator? Do I need to meet with a dietitian? What number can I call if I have questions? When are the best times to check my blood glucose? Where to find more information: ??? [place] Diabetes Association: diabetes.org ??? Academy of Nutrition and Dietetics: www.eatright.org ??? National [place] of Diabetes and Digestive and Kidney Diseases: [...] provider. Document Revised: 09/11/2020 Document Reviewed: 09/11/2020 [employer] Patient Education ? 2020 [employer]. Nephrology Acute Kidney Injury, Adult Acute kidney [...] these instructions at home: Medicines ??? Take bslx-moq-jeaacdd and prescription medicines only as told by [...] important. Where to find more information ??? [place] Association of Kidney Patients: www.aakp.org ??? National Kidney Foundation: www.kidney.org ??? [place] Kidney Fund: www.akfinc.org ??? Life Options Rehabilitation [...] provider. Document Revised: 08/14/2020 Document Reviewed: 08/14/2020 [employer] Patient Education ? 2020 [employer]. Pulmonary Medicine Chronic Obstructive Pulmonary Disease Exacerbation [...] these instructions at home: Medicines ??? Take rveb-arn-ngmfcyz and prescription medicines only as told by [...] cannot use soap and water, use hand neon sign servicer. ??? During flu season, avoid areas that [...] provider. Document Revised: 09/17/2018 Document Reviewed: 11/09/2017 [employer] Patient Education ? 2020 [employer]. documented in this encounter Plan of Treatment Not on file documented as of this encounter Visit Diagnoses Not on filedocumented in this encounter
--- OUTSIDE RECORDS SUMMARY | 2025-04-06 13:50 | XMS_ITS | Encounter Summary ---
Author Organization [employer] i[employer] Address [address] [place] [address] Care Team Providers Care Primary Health Organisation Manager Name Role Phone Unavailable Primary Care Provider Unavailabl e Encounter Details Date Type Department Care Team (Late st Contact Info) Description 01/05/2022 Transcribed Document [facility] [place] [address] [place] [address] ProviderCarlos MD [address], [place] [address] Social History Tobacco Use Types Packs/Day Years [...] mg= 1 Tab, Oral, Daily Vitamin D2, 80402 Units= 1 Cap, Oral, Weekly Lab Results [...] 133 mg/dL 01/05/2022 10:47 EDT Sodium Ur [place] 31 mMole/Liter 01/05/2022 10:47 EDT CK 311 [...] # 0.58 x10(3)/uL (Low) 01/05/2022 08:52 EDT [place] % 5.9 % 01/05/2022 08:52 EDT [place] # 0.31 K/uL 01/05/2022 08:52 EDT Eos [...] (COVID19 PCR) Not Detected 01/04/2022 13:24 EDT documented in this encounter Plan of Treatment Not on file documented as of this encounter Visit Diagnoses Not on filedocumented in this encounter
--- OUTSIDE RECORDS SUMMARY | 2025-04-06 13:50 | XMS_ITS | Encounter Summary ---
Author Organization [employer] iatives Address [address] [place] [address] Care Team Providers Care Management Trainer Name Role Phone Unavailable Primary Care Provider Unavailabl e Encounter Details Date Type Department Care Team (Late st Contact Info) Description 01/08/2022 Transcribed Document [facility] [place] Family Medicine Counts include 234 beds at the [facility] [place] [address] ProviderCarlos MD Counts include [address] beds at [facility] [place], [place] [address] Social History Tobacco Use Types Packs/Day Years [...] On: 01/08/2022 14:04 EDT by Angelique Joyce, Senior Lead Project Manager Primary Insurance Authorization Authorization and Policy Numbers : Insurance 1 Health Plan: [place] Medicaid Policy Number: [id number] Authorization Number: Insurance Primary Name : [place] Medicaid - Policy Number: [id number] Authorization Status-Primary : Drg approved Auth/Referral Contact Name-Primary : [place] Reference Number-Primary : [id number] Authorization Number-Primary : [id number] Number of Days Authorized-Primary : 5 Day(s) Authorized Service Begin Date-Primary : 01/03/2022 EDT Authorized Service End Date-Primary : 01/08/2022 EDT Authorization Comments-Primary : Discharge summary faxed. Historical Authorization Comments-Primary : Comment 1: Authorized per fax 01/08/22 @ 1237. Approved DRG inpatient length of stay 01/03 - 01/09. (Angelique Joyce, Senior Lead Project Manager 01/08/2022 14:03) Comment 2: Clinicals faxed via [employer] for IP approval (ISAIAS NAVARRO RN 01/07/2022 12:21) Comment 3: AUTH SUBMITTED VIA [email or web address] CLINICALS ATTACHED (Olive Dolan RN 01/04/2022 15:27) Angelique Joyce, Senior Lead Project Manager - 01/08/2022 14:04 EDT documented in this encounter Plan of Treatment Not on file documented as of this encounter Visit Diagnoses Not on filedocumented in this encounter
--- OUTSIDE RECORDS SUMMARY | 2025-04-06 13:50 | XMS_ITS | Encounter Summary ---
Author Organization [employer] iatives Address [address] [place] [address] Care Team Providers Care Procedure Tech Name Role Phone Unavailable Primary Care Provider Unavailabl e Encounter Details Date Type Department Care Team (Late st Contact Info) Description 01/08/2022 Transcribed Document [facility] [place] [address] [place] [address] ProviderCarlos MD [address] [place] [address] Social History Tobacco Use Types Packs/Day Years [...] Historical ProviderMD - 01/08/2022 2:00 AM CDT Dry Kiln Worker Details Entered On: 01/08/2022 6:49 EDT Performed [...]
--- OUTSIDE RECORDS SUMMARY | 2025-04-06 13:50 | XMS_ITS | Encounter Summary ---
Author Organization [facility] Address [address] [place] [address] Care Team Providers Care Beamer Hand Name Role Phone Kaveh Ryan MD Primary Care Provider + [phone] Kalli Shipley MD Unavailable + [phone] Reason for Visit * Reason Comments Med Refill Encounter Details Date Type Department Care Team (Late st Contact Info) Description 05/07/2023 [facility]ill [place] [facility] [address] [place] [address] Kalli Shipley MD [address] [place] [address] Social History Tobacco Use Types [...] Description 05/12/2025 10:40 AM EDT Office Visit [facility] [address] [place] [address] Juliann Adrian, SPRAY APPLICATOR [address] [facility] [address] [place] [address] documented as of this encounter Visit Diagnoses Not on filedocumented in this encounter Additional Health Concerns Assessment Noted Time A fall risk assessment has been complete d for the patient 02/26/2023 9:15 AM EDT A Body Mass Index follow-up plan has been documented for the patient 02/26/2023 12:36 PM EDT documented as of this encounter Care Teams Beamer Hand Relationship Specialty Start Date End Date Kaveh Ryan MD [address] [facility] [place] [address] PCP - General 05/28/22 Kalli Shipley MD [address] [facility] [address] [place] [address] Service Attending Neurology 05/28/22 documented as of this encounter
--- OUTSIDE RECORDS SUMMARY | 2025-04-06 13:50 | XMS_ITS | Encounter Summary ---
Author Organization [employer] Address [address] [facility] [place] [address] Care Team Providers Care Cushion Padder Name Role Phone Unavailable Primary Care Provider Unavailabl e Encounter Details Date Type Department Care Team (Late st Contact Info) Description 01/07/2022 Transcribed Document [facility] [place] [address] [place] [address] ProviderCarlos MD [address] [place], [place] [address] Social History Tobacco Use Types Packs/Day Years [...] 14:16 EDT by RODDY PHILLIPS RN - Television Antenna InstallerSurveying Or Spatial Science Technician Progress Note Discharge Arrangements : Patient Post-Acute Information Patient Name: INEZ MALDONADO JR Gender: Male : 53 Age: 66 Years No Post-Acute Placement(s) Listed No Post-Acute Service(s) Listed No Curaspan Referral(s) Listed Patient Discharge Goal : Home Is the Patient Meeting Medical Necessity : Yes Did you Attend Multidisciplinary Rounds? : Yes RODDY PHILLIPS RN - Television Antenna Installer - 01/07/2022 14:16 EDT Narrative Progress Note Narrative Progress Note : RRS Mod Day 01/20 Patient was admitted for renal failure. Hx CHF, COPD. Consults to neph. Order to discontinue his schmid catheter today. Per hospitalist note if his creatinine stays under 6 he can go home tomorrow 01/08. Probable discharge home with girlfriend to transport. DCP: home RODDY PHILLIPS, RN - Television Antenna Installer - 01/07/2022 14:16 EDT Electronically signed by [facility] Conversion Transport Driver Cerner at 02/02/2023 1:53 PM CDT documented in this encounter Plan of Treatment Not on file documented as of this encounter Visit Diagnoses Not on filedocumented in this encounter
--- OUTSIDE RECORDS SUMMARY | 2025-04-06 13:50 | XMS_ITS | Encounter Summary ---
Author Organization [employer] Address [address] [place] [address] Care Team Providers Care Beadworker Name Role Phone Unavailable Primary Care Provider Unavailabl e Encounter Details Date Type Department Care Team (Late st Contact Info) Description 01/07/2022 Transcribed Document [facility] [place] Family Medicine [address] [place] [address] ProviderCarlos MD [address] [place] [address] Social History Tobacco Use Types [...] december 2021 and that he is at [facility], knows correct age and . no tremor. [...] creatinine < 6.0 Ana Tabor Hospitalist pager- [phone] documented in this encounter Plan of Treatment Not on file documented as of this encounter Visit Diagnoses Not on filedocumented in this encounter
--- OUTSIDE RECORDS SUMMARY | 2025-04-06 13:50 | XMS_ITS | Encounter Summary ---
Author Organization [employer] Address [address] [place] [address] Care Team Providers Care Chiropractic Physician Name Role Phone Unavailable Primary Care Provider Unavailabl e Encounter Details Date Type Department Care Team (Late st Contact Info) Description 01/08/2022 Transcribed Document [facility] [place] [facility] [place] [address] ProviderCarols MD [facility] [place], [place] [address] Social History Tobacco Use Types Packs/Day Years [...] On: 01/08/2022 14:03 EDT by Angelique Joyce, City Council Member Primary Insurance Authorization Authorization and Policy Numbers : Insurance 1 Health Plan: [place] Policy Number: [id number] Authorization Number: Insurance Primary Name : [place] - Policy Number: [id number] Authorization Status-Primary : Drg approved Auth/Referral Contact Name-Primary : [place] Reference Number-Primary : [id number] Authorization Number-Primary : [id number] Number of Days Authorized-Primary : 5 Day(s) Authorized Service Begin Date-Primary : 01/03/2022 EDT Authorized Service End Date-Primary : 01/08/2022 EDT Authorization Comments-Primary : Authorized per fax 01/08/22 @ 1237. Approved DRG inpatient length of stay 01/03 - 01/09. Historical Authorization Comments-Primary : Comment 1: Clinicals faxed via [employer] for IP approval (ISAIAS NAVARRO RN 01/07/2022 12:21) Comment 2: AUTH SUBMITTED VIA [employer] CLINICALS ATTACHED (Olive Dolan RN 01/04/2022 15:27) Angelique Joyce, City Council Member - 01/08/2022 14:03 EDT documented in this encounter Plan of Treatment Not on file documented as of this encounter Visit Diagnoses Not on filedocumented in this encounter
--- OUTSIDE RECORDS SUMMARY | 2025-04-06 13:50 | XMS_ITS | Encounter Summary ---
Author Organization [employer] iatives Address [address] [place] [address] Care Team Providers Care Insulation Engineman Name Role Phone Unavailable Primary Care Provider Unavailabl e Encounter Details Date Type Department Care Team (Late st Contact Info) Description 01/05/2022 Transcribed Document [facility] [address] [place] [address] ProviderCarlos [place] [address] Social History Tobacco Use Types [...] (JAN 03) Radiology Results (Last 48 hours) [id number] -- 01/03/2022 20:35 US Renal Comp (01/04/2022 [...] when ZAHRA resolved. Ana Tabor Hospitalist pager- [phone] documented in this encounter Plan of Treatment Not on file documented as of this encounter Visit Diagnoses Not on filedocumented in this encounter
--- OUTSIDE RECORDS SUMMARY | 2025-04-06 13:50 | XMS_ITS | Encounter Summary ---
Author Organization [employer] iatives Address [address] [place] [address] Care Team Providers Care Lead Java J2Ee Developer Name Role Phone Unavailable Primary Care Provider Unavailabl e Encounter Details Date Type Department Care Team (Late st Contact Info) Description 01/05/2022 Transcribed Document [facility] Family Medicine [address] [place] [address] ProviderCarlos MD [facility] [place], [place] [address] Social History Tobacco Use Types Packs/Day Years [...] assessment additional narrative Description of Event : SCRAP COLLECTOR approached RN at shift change stating that [...] comfortable with call light. At approximately 0015, SCRAP COLLECTOR approached RN stating that patient had again [...]
--- OUTSIDE RECORDS SUMMARY | 2025-04-06 13:50 | XMS_ITS | Encounter Summary ---
Author Organization [employer] iatives Address [address] [place] [address] Care Team Providers Care Vocational Adviser Name Role Phone Unavailable Primary Care Provider Unavailabl e Encounter Details Date Type Department Care Team (Late st Contact Info) Description 01/08/2022 Transcribed Document [facility] Family Medicine [address] [place] [address] ProviderCarlos MD [address] [place] [address] Social History Tobacco Use Types Packs/Day Years [...]
--- OUTSIDE RECORDS SUMMARY | 2025-04-06 13:50 | XMS_ITS | Encounter Summary ---
Author Organization [employer] iatives Address [address] [place] [address] Care Team Providers Care Slubber Tender Name Role Phone Unavailable Primary Care Provider Unavailabl e Encounter Details Date Type Department Care Team (Late st Contact Info) Description 01/06/2022 Transcribed Document [facility] Family Medicine [address] [place] [address] ProviderCarlos MD [address] [place] [address] Social History Tobacco Use Types Packs/Day Years [...]
--- OUTSIDE RECORDS SUMMARY | 2025-04-06 13:50 | XMS_ITS | Encounter Summary ---
Author Organization [employer] iatives Address [address] [facility] [place] [address] Care Team Providers Care Instructional Supervisor Name Role Phone Unavailable Primary Care Provider Unavailabl e Encounter Details Date Type Department Care Team (Late st Contact Info) Description 01/05/2022 Transcribed Document [facility] [address] [place] [address] ProviderCarlos MD [address] [place] [address] Social History Tobacco Use Types Packs/Day Years [...] Historical ProviderMD - 01/05/2022 2:00 AM CDT Dioramist Details Entered On: 01/05/2022 0:20 EDT Performed [...] Callahan V, RN - 01/05/2022 0:20 EDT documented in this encounter Plan of Treatment Not on file documented as of this encounter Visit Diagnoses Not on filedocumented in this encounter
--- OUTSIDE RECORDS SUMMARY | 2025-04-06 13:50 | XMS_ITS | Encounter Summary ---
Author Organization [employer] iatives [facility] [address] [facility] [place] [address] Care Team Providers Care Reel Hooker Name Role Phone Unavailable Primary Care Provider Unavailabl e Encounter Details Date Type Department Care Team (Late st Contact Info) Description 01/08/2022 Transcribed Document [facility] [place] [address] [place] [address] ProviderCarlos MD [facility] [place] [address] Social History Tobacco Use Types [...] Carlos ProviderMD - 01/08/2022 11:05 AM CDT [facility] [place] [address] INEZ SHOOK JR :1955 Visit [...] you Where: [address] [place] [address]- Business (1) Follow Up with SINCERE BONILLA When 01/15/2022 03:15 PM EDT Comments PCP appt made, Bring discharge instructions with you Where: [address] [place] [address]- Medications What How Much When Instructions Next Dose hydrALAZINE (hydrALAZINE 25 mg oral tablet) 1 Tablet(s) Oral Two Times A Day Duration: 30 Day(s) Pickup at [facility] this evening Non Formulary (lab draw) [...] improves and your are cleared by your mainspring barrel assembly cleaner to resume higher dose. Pickup at [facility] this evening gabapentin (gabapentin 600 mg [...] release) Oral Every Day tomorrow Pharmacy Information [facility] [place]: [address] [place] [address] [place], [place] [phone] Take your medications faithfully. Do NOT skip [...] these instructions at home: Medicines ??? Take sxtb-kwi-heslhqu and prescription medicines only as told by [...] important. Where to find more information ??? [place] Association of Kidney Patients: www.aakp.org ??? National Kidney Foundation: www.kidney.org ??? [place] Kidney Fund: www.akfinc.org ??? [facility] [...] provider. Document Revised: 08/14/2020 Document Reviewed: 08/14/2020 [employer] Patient Education ?? 2020 [employer]. Heart Failure Action Plan A heart failure [...] Follow these instructions at home: ??? Take eahx-hut-vmqwxed and prescription medicines only as told by your health care provider. ??? Weigh yourself daily. Your target weight is lb ( kg). ? Call your health care provider if you gain more than lb ( kg) in a day, or more than lb ( kg) in one week. ??? Eat a heart-healthy diet. Work with a diet and alternative financing specialist (dietitian) to create an eating plan that is best for you. ??? Keep all follow-up visits as told by your health care provider. This is important. Where to find more information ??? [place] Heart Association: www.heart.org Summary ??? Follow the [...] provider. Document Revised: 09/17/2018 Document Reviewed: 11/14/2017 [employer] Patient Education ?? 2020 Elsevier Inc. Chronic [...] these instructions at home: Medicines ??? Take ibir-sqy-khyqmgr and prescription medicines only as told by [...] cannot use soap and water, use hand graphic editor. ??? During flu season, avoid areas that [...] provider. Document Revised: 09/17/2018 Document Reviewed: 11/09/2017 [employer] Patient Education ?? 2020 [employer] Inc. Carbohydrate Counting for Diabetes Mellitus, Adult [...] foods that contain carbohydrates: ??? Rice. ??? [place]. ??? Milk. ??? Strawberries. 2. Calculate how [...] snacks. Where to find more information ??? [place] Diabetes Association: www.diabetes.org ??? Centers for Disease [...] Reviewed: 10/05/2020 Elsevier Patient Education ?? 2020 [employer]. Diabetes Mellitus and Skin Care Diabetes, also [...] sclerosis). ??? Brown or red, ring-shaped or fqsj-fuan-hjfauo patches of skin on the ears or [...] provider. Document Revised: 07/10/2020 Document Reviewed: 07/24/2020 [employer] Patient Education ?? 2020 [employer] Inc. Diabetes Mellitus and Nutrition, Adult When [...] Carrots. Green beans. Tomatoes. Peppers. Onions. Cucumbers. [place] sprouts. Grains Whole grains, such as whole-wheat [...] Do I need to meet with a cloth printing back tender? Do I need to meet with a dietitian? What number can I call if I have questions? When are the best times to check my blood glucose? Where to find more information: ??? [place] Diabetes Association: diabetes.org ??? Academy of Nutrition and Dietetics: www.eatright.org ??? National [place] of Diabetes and Digestive and Kidney Diseases: [...] provider. Document Revised: 09/11/2020 Document Reviewed: 09/11/2020 [employer] Patient Education ?? 2020 [employer]. gabapentin (GA ba PEN tin) Gralise, Horizant, [...] are a day sleeper or work a night auditor. Some people have thoughts about suicide while [...] may report side effects to FDA at 9-708-PRH-5911. What other drugs will affect gabapentin? Using gabapentin with other drugs that make you drowsy or slow your breathing can cause dangerous side effects or . Ask your doctor before using opioid medication, a sleeping pill, cold or allergy medicine, a muscle relaxer, or medicine for anxiety or seizures. Other drugs may affect gabapentin, including prescription and gyis-wnl-hvisimp medicines, vitamins, and herbal products. Tell your [...] to ensure that the information provided by [employer]Time. ('Multum') is accurate, up-to-date, and complete, but no guarantee is made to that effect. Drug information contained herein may be time sensitive. Power[employer]onic information has been compiled for use by healthcare practitioners and consumers in the [place] and therefore Power[employer]onic does not warrant that uses outside of the [place] are appropriate, unless specifically indicated otherwise. RunTitles drug information does not endorse drugs, diagnose patients or recommend therapy. RunTitles drug information is an informational resource designed [...] effective or appropriate for any given patient. [facility] does not assume any responsibility for any aspect of healthcare administered with the aid of information [facility] provides. The information contained herein is not intended to cover all possible uses, directions, precautions, warnings, drug interactions, allergic reactions, or adverse effects. If you have questions about the drugs you are taking, check with your doctor, nurse or pharmacist. Copyright 0990-5614 [facility]. Version: 17.. Revision Date: 11/13/2020. hydralazine (ju [...] may report side effects to FDA at 5-991-NRF-9324. What other drugs will affect hydralazine? Tell your doctor about all your current medicines and any you start or stop using, especially: ?? diazoxide (an injectable blood pressure medication); or ?? an MAO inhibitor--isocarboxazid, linezolid, methylene blue injection, phenelzine, rasagiline, selegiline, tranylcypromine, and others. This list is not complete. Other drugs may interact with hydralazine, including prescription and pugl-hzx-fodnpzn medicines, vitamins, and herbal products. Not all [...] to ensure that the information provided by [employer]. ('Multum') is accurate, up-to-date, and complete, but no guarantee is made to that effect. Drug information contained herein may be time sensitive. [employer] information has been compiled for use by healthcare practitioners and consumers in the [place] and therefore [employer] does not warrant that uses outside of the [place] are appropriate, unless specifically indicated otherwise. RunTitles drug information does not endorse drugs, diagnose patients or recommend therapy. [employer]it[employer] drug information is an informational resource designed [...] effective or appropriate for any given patient. [employer] does not assume any responsibility for any aspect of healthcare administered with the aid of information [employer] provides. The information contained herein is not intended to cover all possible uses, directions, precautions, warnings, drug interactions, allergic reactions, or adverse effects. If you have questions about the drugs you are taking, check with your doctor, nurse or pharmacist. Copyright 7514-7500 [employer]. Version: 5.01. Revision Date: 10/28/2017. lisinopril (lyse [...] have an allergic reaction if you are -[place]vorian. Call your doctor at once if you have: ?? a light-headed feeling, like you might pass out; ?? fever, sore throat; Electronically signed by Jayde Babin Conversion Vice President And Portfolio Manager Cerner at 02/02/2023 2:02 PM CDT documented in this encounter Plan of Treatment Not on file documented as of this encounter Visit Diagnoses Not on filedocumented in this encounter
--- OUTSIDE RECORDS SUMMARY | 2025-04-06 13:50 | XMS_ITS | Encounter Summary ---
Author Organization [employer] i[employer] Address [address] [place] [address] Care Team Providers Care Software Development Engineer Name Role Phone Unavailable Primary Care Provider Unavailabl e Encounter Details Date Type Department Care Team (Late st Contact Info) Description 01/08/2022 Transcribed Document [facility] [place] [address] [place] [address] ProviderCarlos MD [facility] [place], [place] [address] Social History Tobacco Use Types Packs/Day Years [...] Medical At risk for violence / IMO [id number] / Confirmed History of obstructive sleep apnea / IMO [id number] / Confirmed, Active Problems (8) At risk [...]
--- OUTSIDE RECORDS SUMMARY | 2025-04-06 13:50 | XMS_ITS | Encounter Summary ---
Author Organization [employer] Address [address] [place] [address] Care Team Providers Care Technician Biological Health Name Role Phone Unavailable Primary Care Provider Unavailabl e Encounter Details Date Type Department Care Team (Late st Contact Info) Description 01/08/2022 Transcribed Document [facility] Family Medicine [address] [place] [address] ProviderCarlos MD [facility] [place] [address] Social History Tobacco Use Types [...] 14 mL/min/1.73m2 LOW 01/08/2022 09:26 Bun/Creatinine 21.0 NV 01/08/2022 09:26 eGFR NonAfrican 12 mL/min/1.73m2 LOW 01/08/2022 09:26 Creatinine Level 4.90 mg/dL NV 01/08/2022 09:26 Sodium Level 143 mmol/L 01/08/2022 09:26 Potassium Level 3.7 mmol/L 01/08/2022 09:26 Chloride Level 109 mmol/L 01/08/2022 09:26 Carbon Dioxide Level 22 mmol/L 01/08/2022 09:26 Anion Gap 16 01/08/2022 09:26 Blood Urea Nitrogen 103 mg/dL CRIT 01/08/2022 09:26 Glucose Level 137 mg/dL NV 01/08/2022 09:26 Albumin Level 2.5 Gram/dL LOW [...] type 2 dm - a1c 6.7 - [facility]: Mr. Shook is a 66 year old male with history of CHF type unknown, HTN, INOCENTE, COPD who presented to outside hospital with one week of nausea and vomiting, there he was found ot have creatinine over 11 and was sent to [facility] for nephrology evaluation. Here IV fluids were [...] Hospitalist Electronically signed by Jayde Babin Conversion Semiconductor Equipment Technician Cerner at 02/02/2023 1:59 PM CDT documented in this encounter Plan of Treatment Not on file documented as of this encounter Visit Diagnoses Not on filedocumented in this encounter
--- OUTSIDE RECORDS SUMMARY | 2025-04-06 13:50 | XMS_ITS | Clinical Summary ---
Author Organization [employer] iatives Address [address] [place] [address] Care Team Providers Care Relocation Associate Name Role Phone Unavailable Primary Care Provider [...]
--- OUTSIDE RECORDS SUMMARY | 2025-04-06 13:50 | XMS_ITS | Encounter Summary ---
Author Organization [employer] iatives Address [address] [place] [address] Care Team Providers Care Model Maker Plaster Name Role Phone Unavailable Primary Care Provider Unavailabl e Encounter Details Date Type Department Care Team (Late st Contact Info) Description 01/05/2022 Transcribed Document [facility] Family Medicine [address] [place] [address] ProviderCarlos MD [address] [place] [address] Social History Tobacco Use Types Packs/Day Years [...]
--- OUTSIDE RECORDS SUMMARY | 2025-04-06 14:48 | XMS_ITS | CCD ---
Author Organization Unknown Care Team Providers Care Medical Care Administrator Name Role Phone Unavailable Primary Care Provider Unavailabl e Unavailable Chronic Care Management Unavaila ble Summary Purpose DataExchange Insurance Providers Payer name Policy type / Coverage type Covered republican ID Effective Begin Date Effective End Date [facility] [id number] Unknown Unknown Family History Family History data not found Medication Administered No Medication Administered data Reason For Visit No Reason For Visit data Medical Equipment No Medical Equipment data Advance Directives No Advance Directive data
--- OUTSIDE RECORDS SUMMARY | 2025-04-06 14:50 | XMS_ITS | CCD ---
Author Organization Unknown Care Team Providers Care Can Crimper Name Role Phone Unavailable Primary Care Provider Unavailabl e Unavailable Chronic Care Management Unavaila ble Summary Purpose DataExchange Insurance Providers Payer name Policy type / Coverage type Covered green party ID Effective Begin Date Effective End Date [facility] [id number] Unknown Unknown Family History Family History data not found Medication Administered No Medication Administered data Reason For Visit No Reason For Visit data Medical Equipment No Medical Equipment data Advance Directives No Advance Directive data
[2025-04-06 14:52] LABS: Anion Gap 13.2 mEq/L (5-15); Blood Urea Nitrogen 24 mg/dl (9-20); Calcium 10.1 mg/dl (8.4-10.2); Carbon Dioxide 27 mmol/L (22.0-30.0); Chloride 101 mmol/L (98-107); Estimated Glomerular Filt Rate 74 ml/min (>60); GFR (African American) 89 ML/MIN (>60); Glucose 90 mg/dl (74-100); Potassium 4.2 mmoL/L (3.5-5.1); Sodium 137 mmol/L (136-145)
--- OUTSIDE RECORDS SUMMARY | 2025-05-25 20:00 | XMS_ITS | Clinical Summary ---
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 Active [...] Observation Time Observation Value Commen ts Temperature 2025-04-04 14:15:00.000 98.2 [degF] Temperature 2025-03-28 10:42:00.000 97.6 [degF] BMI (%) 2025-03-28 10:42:00.000 29 kg/m2 Height 2025-03-28 10:42:00.000 68 [in_us] Pulse 2025-04-04 14:15:00.000 77 /min Pulse 2025-03-28 10:42:00.000 68 /min O2 Saturation (%) 2025-04-04 14:16:00.000 97 % O2 Saturation (%) 2025-03-28 10:42:00.000 96 % Respirations 2025-04-04 14:15:00.000 18 /min Respirations 2025-03-28 10:42:00.000 18 /min Weight (lbs) 2025-03-28 10:42:00.000 192 [lb_av] Systolic Blood Pressure 2025-04-04 14:15:00.000 118 mm [Hg] Systolic Blood Pressure 2025-03-28 10:42:00.000 114 mm [Hg] Diastolic Blood Pressure 2025-04-04 14:15:00.000 64 mm [Hg] Diastolic Blood Pressure 2025-03-28 10:42:00.000 68 mm [Hg] Plan of Treatment Planned Activity Planned Date Details Comments Future Scheduled Test RN TO OBSE RVE, ASSESS, EVALUATE, AND DEVELOP AN INDIVIDUALIZED PLAN OF CARE. AGENCY MAY ACCEPT ORDERS FROM CONSULTING PHYSICIANS PCP RN TO OBSERVE AND ASSESS, DIRECTOR CORRECTIONAL AGENCY/BARNWORKER GROOM TO OBSERVE FOR RISK FOR FALLS AND INSTRUCT IN FALL PREVENTION, HOME SAFETY, MEDICATION MANAGEMENT, INFECTION PREVENTION, AND NUTRITION MANAGEMENT. RN/DIRECTOR CORRECTIONAL AGENCY/BARNWORKER GROOM NURSE MAY PERFORM O2 SATURATION LEVEL ON ADMISSION AND PRN FOR SOB FOR RN TO ASSESS/DIRECTOR CORRECTIONAL AGENCY TO OBSERVE PATIENT, WITH NOTIFICATION TO THE PHYSICIAN IF SATURATION IS 90% IN THE ABSENCE OF MORE SPECIFIC PARAMETERS FROM THE PHYSICIAN. AGENCY MAY PERFORM A RESUMPTION OF CARE VISIT FOLLOWING ANY HOSPITAL ADMISSION. RN/DIRECTOR CORRECTIONAL AGENCY/BARNWORKER GROOM TO MONITOR CO-MORBID CONDITIONS LISTED ON THE PLAN OF CARE AND ANY NEW CONDITIONS THAT PRESENT THEMSELVES DURING THIS EPISODE TO IDENTIFY CHANGES AND INTERVENE TO MINIMIZE COMPLICATIONS. [code = RN TO OBSERVE, ASSESS, EVALUATE, AND DEVELOP AN INDIVIDUALIZED PLAN OF CARE. AGENCY MAY ACCEPT ORDERS FROM CONSULTING PHYSICIANS PCP RN TO OBSERVE AND ASSESS, DIRECTOR CORRECTIONAL AGENCY/BARNWORKER GROOM TO OBSERVE FOR RISK FOR FALLS AND INSTRUCT IN FALL PREVENTION, HOME SAFETY, MEDICATION MANAGEMENT, INFECTION PREVENTION, AND NUTRITION MANAGEMENT. RN/DIRECTOR CORRECTIONAL AGENCY/BARNWORKER GROOM NURSE MAY PERFORM O2 SATURATION LEVEL ON ADMISSION AND PRN FOR SOB FOR RN TO ASSESS/DIRECTOR CORRECTIONAL AGENCY TO OBSERVE PATIENT, WITH NOTIFICATION TO THE PHYSICIAN IF SATURATION IS 90% IN THE ABSENCE OF MORE SPECIFIC PARAMETERS FROM THE PHYSICIAN. AGENCY MAY PERFORM A RESUMPTION OF CARE VISIT FOLLOWING ANY HOSPITAL ADMISSION. RN/DIRECTOR CORRECTIONAL AGENCY/BARNWORKER GROOM TO MONITOR CO-MORBID CONDITIONS LISTED ON THE PLAN OF CARE AND ANY NEW CONDITIONS THAT PRESENT THEMSELVES DURING THIS EPISODE TO IDENTIFY CHANGES AND INTERVENE TO MINIMIZE COMPLICATIONS.] Future Scheduled Test MEDICATION MANAGEMENT; RN/DIRECTOR CORRECTIONAL AGENCY/BARNWORKER GROOM TO REVIEW MEDICATIONS FOR INTERACTIONS, EFFECTIVENESS OF DRUG THERAPY, AND SIGNS/SYMPTOMS OF ADVERSE REACTIONS. MAY INSTRUCT AND REINFORCE MEDICATION TEACHING RELATED TO THE USE OF MEDICATIONS, DOSAGE, FREQUENCY, PURPOSE, SIDE EFFECTS, AND TO REPORT COMPLICATIONS. [code = MEDICATION MANAGEMENT; RN/DIRECTOR CORRECTIONAL AGENCY/BARNWORKER GROOM TO REVIEW MEDICATIONS FOR INTERACTIONS, EFFECTIVENESS OF DRUG THERAPY, AND SIGNS/SYMPTOMS OF ADVERSE REACTIONS. MAY INSTRUCT AND REINFORCE MEDICATION TEACHING RELATED TO THE USE OF MEDICATIONS, DOSAGE, FREQUENCY, PURPOSE, SIDE EFFECTS, AND TO REPORT COMPLICATIONS.] Future Scheduled Test CARDIOVASC ULAR SYSTEM; RN TO ASSESS/TEACH, DIRECTOR CORRECTIONAL AGENCY/BARNWORKER GROOM TO OBSERVE/TEACH RELATED TO ALTERED CARDIOVASCULAR STATUS TO MINIMIZE COMPLICATIONS AND REDUCE HOSPITALIZATION. [code = CARDIOVASCULAR SYSTEM; RN TO ASSESS/TEACH, DIRECTOR CORRECTIONAL AGENCY/BARNWORKER GROOM TO OBSERVE/TEACH RELATED TO ALTERED CARDIOVASCULAR STATUS TO MINIMIZE COMPLICATIONS AND REDUCE HOSPITALIZATION.] Future Scheduled Test ANGINA MAN AGEMENT; RN TO ASSESS AND TEACH, DIRECTOR CORRECTIONAL AGENCY/BARNWORKER GROOM TO OBSERVE AND TEACH WARNING SIGNS AND SYMPTOMS TO AVOID HOSPITALIZATION. [code = ANGINA MANAGEMENT; RN TO ASSESS AND TEACH, DIRECTOR CORRECTIONAL AGENCY/BARNWORKER GROOM TO OBSERVE AND TEACH WARNING SIGNS AND SYMPTOMS TO AVOID HOSPITALIZATION.] Future Scheduled Test RESPIRATOR Y SYSTEM MANAGEMENT; RN TO ASSESS AND TEACH, DIRECTOR CORRECTIONAL AGENCY/BARNWORKER GROOM TO OBSERVE AND TEACH RELATED TO ALTERED RESPIRATORY STATUS TO MINIMIZE COMPLICATIONS AND REDUCE HOSPITALIZATION. [code = RESPIRATORY SYSTEM MANAGEMENT; RN TO ASSESS AND TEACH, DIRECTOR CORRECTIONAL AGENCY/BARNWORKER GROOM TO OBSERVE AND TEACH RELATED TO ALTERED RESPIRATORY STATUS TO MINIMIZE COMPLICATIONS AND REDUCE HOSPITALIZATION.] Future Scheduled Test COPD MANAG EMENT; RN TO ASSESS AND TEACH, DIRECTOR CORRECTIONAL AGENCY/BARNWORKER GROOM TO OBSERVE AND TEACH SIGNS/SYMPTOMS OF COPD EXACERBATION AND PROVIDE EARLY INTERVENTIONS TO MINIMIZE RISK OF HOSPITALIZATION. RN/DIRECTOR CORRECTIONAL AGENCY/BARNWORKER GROOM TO INSTRUCT ON SELF-CARE MANAGEMENT INCLUDING BREATHING TECHNIQUES, AIRWAY CLEARANCE, AND PROPER USE OF COPD MEDICATIONS. RN TO ASSESS AND TEACH, DIRECTOR CORRECTIONAL AGENCY/BARNWORKER GROOM TO OBSERVE AND TEACH PATIENT/CAREGIVER ABILITY TO MONITOR AND RECORD VITAL SIGNS INCLUDING PULSE OXIMETRY AND BLOOD PRESSURE. PULSE OXIMETER AND BP MONITOR TO BE PROVIDED IF NEEDED [code = COPD MANAGEMENT; RN TO ASSESS AND TEACH, DIRECTOR CORRECTIONAL AGENCY/BARNWORKER GROOM TO OBSERVE AND TEACH SIGNS/SYMPTOMS OF COPD EXACERBATION AND PROVIDE EARLY INTERVENTIONS TO MINIMIZE RISK OF HOSPITALIZATION. RN/DIRECTOR CORRECTIONAL AGENCY/BARNWORKER GROOM TO INSTRUCT ON SELF-CARE MANAGEMENT INCLUDING BREATHING TECHNIQUES, AIRWAY CLEARANCE, AND PROPER USE OF COPD MEDICATIONS. RN TO ASSESS AND TEACH, DIRECTOR CORRECTIONAL AGENCY/BARNWORKER GROOM TO OBSERVE AND TEACH PATIENT/CAREGIVER ABILITY TO MONITOR AND RECORD VITAL SIGNS INCLUDING PULSE OXIMETRY AND BLOOD PRESSURE. PULSE OXIMETER AND BP MONITOR TO BE PROVIDED IF NEEDED ] Future Scheduled Test SKIN INTEG RITY RN TO ASSESS AND TEACH, DIRECTOR CORRECTIONAL AGENCY/BARNWORKER GROOM TO OBSERVE AND TEACH INTEGUMENTARY STATUS TO IDENTIFY CHANGES AND INTERVENE TO MINIMIZE COMPLICATIONS. PROVIDE SKILLED TEACHING OF GENERAL WOUND AND SKIN CARE AND PREVENTION RELATED TO POTENTIAL FOR OR ACTUAL ALTERED SKIN INTEGRITY [code = SKIN INTEGRITY RN TO ASSESS AND TEACH, DIRECTOR CORRECTIONAL AGENCY/BARNWORKER GROOM TO OBSERVE AND TEACH INTEGUMENTARY STATUS TO IDENTIFY CHANGES AND INTERVENE TO MINIMIZE COMPLICATIONS. PROVIDE SKILLED TEACHING OF GENERAL WOUND AND SKIN CARE AND PREVENTION RELATED TO POTENTIAL FOR OR ACTUAL ALTERED SKIN INTEGRITY ] Future Scheduled Test PAIN MANAG EMENT; RN TO ASSESS AND TEACH, BARNWORKER GROOM/DIRECTOR CORRECTIONAL AGENCY TO OBSERVE AND TEACH AND PROVIDE EDUCATION ON PAIN MANAGEMENT TECHNIQUES. [code = PAIN MANAGEMENT; RN TO ASSESS AND TEACH, BARNWORKER GROOM/DIRECTOR CORRECTIONAL AGENCY TO OBSERVE AND TEACH AND PROVIDE EDUCATION ON PAIN MANAGEMENT TECHNIQUES.] Future Scheduled Test FALL REDUC TION MANAGEMENT; RN TO ASSESS AND OBSERVE, DIRECTOR CORRECTIONAL AGENCY/BARNWORKER GROOM TO OBSERVE FALL RISK FACTORS AND EDUCATE PATIENT/CAREGIVER ON STRATEGIES TO MINIMIZE THE RISK OF FALLING. [code = FALL REDUCTION MANAGEMENT; RN TO ASSESS AND OBSERVE, DIRECTOR CORRECTIONAL AGENCY/BARNWORKER GROOM TO OBSERVE FALL RISK FACTORS AND EDUCATE [...] End Date/Time Encounter Type Admission Type Attending [facility] Care Department Encounter ID Discharge Date Discharge Status Discharge Condition Discharge Reason Percent Goals Met 2025-03-28 00:00:00 2025-05-26 00:00:00 Outpatient WILFREDO KELLEY [facility] [id number] 46.15
--- OUTSIDE RECORDS SUMMARY | 2025-05-25 20:00 | XMS_ITS | Clinical Summary ---
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 RN/SUPERVISOR SKI PRODUCTION/BRICK PICKER NURSE MAY PERFORM O2 SATURATION LEVEL ON ADMISSION AND PRN FOR SOB FOR RN TO ASSESS/SUPERVISOR SKI PRODUCTION TO OBSERVE PATIENT, WITH NOTIFICATION TO THE PHYSICIAN IF SATURATION IS 90% IN THE ABSENCE OF MORE SPECIFIC PARAMETERS FROM THE PHYSICIAN. AGENCY MAY PERFORM A RESUMPTION OF CARE VISIT FOLLOWING ANY HOSPITAL ADMISSION. RN/SUPERVISOR SKI PRODUCTION/BRICK PICKER TO MONITOR CO-MORBID CONDITIONS LISTED ON THE PLAN OF CARE AND ANY NEW CONDITIONS THAT PRESENT THEMSELVES DURING THIS EPISODE TO IDENTIFY CHANGES AND INTERVENE TO MINIMIZE COMPLICATIONS. [code = RN TO OBSERVE, ASSESS, EVALUATE, AND DEVELOP AN INDIVIDUALIZED PLAN OF CARE. AGENCY MAY ACCEPT ORDERS FROM CONSULTING PHYSICIANS PCP RN TO OBSERVE AND ASSESS, SUPERVISOR SKI PRODUCTION/BRICK PICKER TO OBSERVE FOR RISK FOR FALLS AND INSTRUCT IN FALL PREVENTION, HOME SAFETY, MEDICATION MANAGEMENT, INFECTION PREVENTION, AND NUTRITION MANAGEMENT. RN/SUPERVISOR SKI PRODUCTION/BRICK PICKER NURSE MAY PERFORM O2 SATURATION LEVEL ON ADMISSION AND PRN FOR SOB FOR RN TO ASSESS/SUPERVISOR SKI PRODUCTION TO OBSERVE PATIENT, WITH NOTIFICATION TO THE PHYSICIAN IF SATURATION IS 90% IN THE ABSENCE OF MORE SPECIFIC PARAMETERS FROM THE PHYSICIAN. AGENCY MAY PERFORM A RESUMPTION OF CARE VISIT FOLLOWING ANY HOSPITAL ADMISSION. RN/SUPERVISOR SKI PRODUCTION/BRICK PICKER TO MONITOR CO-MORBID CONDITIONS LISTED ON THE PLAN OF CARE AND ANY NEW CONDITIONS THAT PRESENT THEMSELVES DURING THIS EPISODE TO IDENTIFY CHANGES AND INTERVENE TO MINIMIZE COMPLICATIONS.] Future Scheduled Test MEDICATION MANAGEMENT; RN/SUPERVISOR SKI PRODUCTION/BRICK PICKER TO REVIEW MEDICATIONS FOR INTERACTIONS, EFFECTIVENESS OF DRUG THERAPY, AND SIGNS/SYMPTOMS OF ADVERSE REACTIONS. MAY INSTRUCT AND REINFORCE MEDICATION TEACHING RELATED TO THE USE OF MEDICATIONS, DOSAGE, FREQUENCY, PURPOSE, SIDE EFFECTS, AND TO REPORT COMPLICATIONS. [code = MEDICATION MANAGEMENT; RN/SUPERVISOR SKI PRODUCTION/BRICK PICKER TO REVIEW MEDICATIONS FOR INTERACTIONS, EFFECTIVENESS OF DRUG THERAPY, AND SIGNS/SYMPTOMS OF ADVERSE REACTIONS. MAY INSTRUCT AND REINFORCE MEDICATION TEACHING RELATED TO THE USE OF MEDICATIONS, DOSAGE, FREQUENCY, PURPOSE, SIDE EFFECTS, AND TO REPORT COMPLICATIONS.] Future Scheduled Test CARDIOVASC ULAR SYSTEM; RN TO ASSESS/TEACH, SUPERVISOR SKI PRODUCTION/BRICK PICKER TO OBSERVE/TEACH RELATED TO ALTERED CARDIOVASCULAR STATUS TO MINIMIZE COMPLICATIONS AND REDUCE HOSPITALIZATION. [code = CARDIOVASCULAR SYSTEM; RN TO ASSESS/TEACH, SUPERVISOR SKI PRODUCTION/BRICK PICKER TO OBSERVE/TEACH RELATED TO ALTERED CARDIOVASCULAR STATUS TO MINIMIZE COMPLICATIONS AND REDUCE HOSPITALIZATION.] Future Scheduled Test ANGINA MAN AGEMENT; RN TO ASSESS AND TEACH, SUPERVISOR SKI PRODUCTION/BRICK PICKER TO OBSERVE AND TEACH WARNING SIGNS AND SYMPTOMS TO AVOID HOSPITALIZATION. [code = ANGINA MANAGEMENT; RN TO ASSESS AND TEACH, SUPERVISOR SKI PRODUCTION/BRICK PICKER TO OBSERVE AND TEACH WARNING SIGNS AND SYMPTOMS TO AVOID HOSPITALIZATION.] Future Scheduled Test RESPIRATOR Y SYSTEM MANAGEMENT; RN TO ASSESS AND TEACH, SUPERVISOR SKI PRODUCTION/BRICK PICKER TO OBSERVE AND TEACH RELATED TO ALTERED RESPIRATORY STATUS TO MINIMIZE COMPLICATIONS AND REDUCE HOSPITALIZATION. [code = RESPIRATORY SYSTEM MANAGEMENT; RN TO ASSESS AND TEACH, SUPERVISOR SKI PRODUCTION/BRICK PICKER TO OBSERVE AND TEACH RELATED TO ALTERED RESPIRATORY STATUS TO MINIMIZE COMPLICATIONS AND REDUCE HOSPITALIZATION.] Future Scheduled Test COPD MANAG EMENT; RN TO ASSESS AND TEACH, SUPERVISOR SKI PRODUCTION/BRICK PICKER TO OBSERVE AND TEACH SIGNS/SYMPTOMS OF COPD EXACERBATION AND PROVIDE EARLY INTERVENTIONS TO MINIMIZE RISK OF HOSPITALIZATION. RN/SUPERVISOR SKI PRODUCTION/BRICK PICKER TO INSTRUCT ON SELF-CARE MANAGEMENT INCLUDING BREATHING TECHNIQUES, AIRWAY CLEARANCE, AND PROPER USE OF COPD MEDICATIONS. RN TO ASSESS AND TEACH, SUPERVISOR SKI PRODUCTION/BRICK PICKER TO OBSERVE AND TEACH PATIENT/CAREGIVER ABILITY TO MONITOR AND RECORD VITAL SIGNS INCLUDING PULSE OXIMETRY AND BLOOD PRESSURE. PULSE OXIMETER AND BP MONITOR TO BE PROVIDED IF NEEDED [code = COPD MANAGEMENT; RN TO ASSESS AND TEACH, SUPERVISOR SKI PRODUCTION/BRICK PICKER TO OBSERVE AND TEACH SIGNS/SYMPTOMS OF COPD EXACERBATION AND PROVIDE EARLY INTERVENTIONS TO MINIMIZE RISK OF HOSPITALIZATION. RN/SUPERVISOR SKI PRODUCTION/BRICK PICKER TO INSTRUCT ON SELF-CARE MANAGEMENT INCLUDING BREATHING TECHNIQUES, AIRWAY CLEARANCE, AND PROPER USE OF COPD MEDICATIONS. RN TO ASSESS AND TEACH, SUPERVISOR SKI PRODUCTION/BRICK PICKER TO OBSERVE AND TEACH PATIENT/CAREGIVER ABILITY TO MONITOR AND RECORD VITAL SIGNS INCLUDING PULSE OXIMETRY AND BLOOD PRESSURE. PULSE OXIMETER AND BP MONITOR TO BE PROVIDED IF NEEDED ] Future Scheduled Test SKIN INTEG RITY RN TO ASSESS AND TEACH, SUPERVISOR SKI PRODUCTION/BRICK PICKER TO OBSERVE AND TEACH INTEGUMENTARY STATUS TO IDENTIFY CHANGES AND INTERVENE TO MINIMIZE COMPLICATIONS. PROVIDE SKILLED TEACHING OF GENERAL WOUND AND SKIN CARE AND PREVENTION RELATED TO POTENTIAL FOR OR ACTUAL ALTERED SKIN INTEGRITY [code = SKIN INTEGRITY RN TO ASSESS AND TEACH, SUPERVISOR SKI PRODUCTION/BRICK PICKER TO OBSERVE AND TEACH INTEGUMENTARY STATUS TO IDENTIFY CHANGES AND INTERVENE TO MINIMIZE COMPLICATIONS. PROVIDE SKILLED TEACHING OF GENERAL WOUND AND SKIN CARE AND PREVENTION RELATED TO POTENTIAL FOR OR ACTUAL ALTERED SKIN INTEGRITY ] Future Scheduled Test PAIN MANAG EMENT; RN TO ASSESS AND TEACH, BRICK PICKER/SUPERVISOR SKI PRODUCTION TO OBSERVE AND TEACH AND PROVIDE EDUCATION ON PAIN MANAGEMENT TECHNIQUES. [code = PAIN MANAGEMENT; RN TO ASSESS AND TEACH, BRICK PICKER/SUPERVISOR SKI PRODUCTION TO OBSERVE AND TEACH AND PROVIDE EDUCATION ON PAIN MANAGEMENT TECHNIQUES.] Future Scheduled Test FALL REDUC TION MANAGEMENT; RN TO ASSESS AND OBSERVE, SUPERVISOR SKI PRODUCTION/BRICK PICKER TO OBSERVE FALL RISK FACTORS AND EDUCATE PATIENT/CAREGIVER ON STRATEGIES TO MINIMIZE THE RISK OF FALLING. [code = FALL REDUCTION MANAGEMENT; RN TO ASSESS AND OBSERVE, SUPERVISOR SKI PRODUCTION/BRICK PICKER TO OBSERVE FALL RISK FACTORS AND EDUCATE [...] 00:00:00 2025-05-26 00:00:00 Outpatient WILFREDO KELLEY [facility] [place] [id number] 46.15
== END 2025-04-06 23:59 | disposition home or self-care (01) ==
LOC: LAB 13:47
PROVIDERS: PCP Family Medicine; Visit Provider Physician Assistant
DX: E87.1 Hypo-osmolality and hyponatremia (principal); E87.5 Hyperkalemia
CPT/HCPCS: 36415; 80048

== ENCOUNTER 2025-04-15 12:53 | Emergency (ER) | payer MEDICARE, SELFPAY ==
[2025-04-15] VITALS (10 sets, daily range): BP systolic 114–150; BP diastolic 67–84; PULSE 58–66; RESP 18–20; TEMP 36.7–36.8; O2SAT 95–98; BMI 28.8
--- OUTSIDE RECORDS SUMMARY | 2025-04-15 13:21 | XMS_ITS ---
Author Organization Unknown Encounters Encounter Type Performer Location Encounter Date Encoun ter Notes virtual Aislinn Salas - [id number]:01:22.00 0Z no notes virtual Data Migration User - [id number] :22.000Z no notes virtual Data Migration User - [id number] :02.000Z no notes virtual Data Migration User - [id number] :12.000Z no notes virtual Humbertorenuka Brandon - [id number]:57:28.000 Z no notes Patient Care team information Name Category Status Period Participants - - Proposed period not known -
--- OUTSIDE RECORDS SUMMARY | 2025-04-15 13:22 | XMS_ITS | Encounter Summary ---
Author Organization [employer]atives Address [address] [facility] [place] [address] Care Team Providers Care Safety Instruction Police Officer Name Role Phone Unavailable Primary Care Provider Unavailabl e Encounter Details Date Type Department Care Team (Late st Contact Info) Description 01/06/2022 Transcribed Document [facility] Family Medicine [address] [place] [address] ProviderCarlos MD [address] [place], [place] [address] Social History Tobacco Use Types Packs/Day Years [...] 15:50 EDT by RODDY PHILLIPS RN - Supervisor Weaving Initial Assessment I Previously Documented Living Environment : No qualifying data available. Living Situation : Home Patient Lives With : Significant other(s) Emergency Contact #1 : Izabela Sanchezn Emergency Contact #1 Phone Number : [phone] Emergency Contact #1 Relationship : girlfriend Emergency [...] Guardian : No RODDY PHILLIPS RN - Supervisor Weaving - 01/06/2022 15:50 EDT Initial Assessment II Current Home Treatments and Equipment : DONTE BradleyH, RN - Supervisor Weaving - 01/06/2022 15:50 EDT Discharge Needs I Anticipated Discharge Date : 01/07/2022 EDT Anticipated Discharge To, CM : Home independently Current Home Treatment/Equipment : Current Home Treatment/Equipment No qualifying data available. Documentation Status Complete : Yes RODDY PHILLIPS RN - Supervisor Weaving - 01/06/2022 15:50 EDT Discharge Needs II Professional Skilled Services : Professional Skilled Services No qualifying data available. Needs Assistance with Transportation : No Patient Discharge Goal : Home RODDY PHILLIPS RN - Supervisor Weaving - 01/06/2022 15:50 EDT Narrative Note Narrative [...] girlfriend to transport. RODDY PHILLIPS RN - Supervisor Weaving - 01/06/2022 15:50 EDT documented in this encounter Plan of Treatment Not on file documented as of this encounter Visit Diagnoses Not on filedocumented in this encounter
--- OUTSIDE RECORDS SUMMARY | 2025-04-15 13:22 | XMS_ITS | Clinical Summary ---
Author Organization [employer] iatives Address [address] [place] [address] Care Team Providers Care Expander Name Role Phone Unavailable Primary Care Provider [...]
--- OUTSIDE RECORDS SUMMARY | 2025-04-15 13:22 | XMS_ITS | Encounter Summary ---
Author Organization [employer] iatives Address [address] [place] [address] Care Team Providers Care Rotary Operator Name Role Phone Unavailable Primary Care Provider Unavailabl e Encounter Details Date Type Department Care Team (Late st Contact Info) Description 01/08/2022 Transcribed Document [facility] [place] [facility] [place] [address] ProviderCarlos MD [facility] [place], [place] [address] Social History Tobacco Use Types Packs/Day Years [...] On: 01/08/2022 14:03 EDT by Angelique Joyce, Tankage Grinder Primary Insurance Authorization Authorization and Policy Numbers : Insurance 1 Health Plan: [place] [employer] Policy Number: [id number] Authorization Number: Insurance Primary Name : [place] [employer] - Policy Number: [id number] Authorization Status-Primary : Drg approved Auth/Referral Contact Name-Primary : DC Reference Number-Primary : [id number] Authorization Number-Primary : [id number] Number of Days Authorized-Primary : 5 Day(s) Authorized Service Begin Date-Primary : 01/03/2022 EDT Authorized Service End Date-Primary : 01/08/2022 EDT Authorization Comments-Primary : Authorized per fax 01/08/22 @ 1237. Approved DRG inpatient length of stay 01/03 - 01/09. Historical Authorization Comments-Primary : Comment 1: Clinicals faxed via onefinestay for IP approval (ISAIAS NAVARRO RN 01/07/2022 12:21) Comment 2: AUTH SUBMITTED VIA [employer] /Other Machine CLINICALS ATTACHED (Olive Dolan RN 01/04/2022 15:27) Angelique Joyce, Tankage Grinder - 01/08/2022 14:03 EDT documented in this encounter Plan of Treatment Not on file documented as of this encounter Visit Diagnoses Not on filedocumented in this encounter
--- OUTSIDE RECORDS SUMMARY | 2025-04-15 13:22 | XMS_ITS | Encounter Summary ---
Author Organization [employer] iatives Address [address] [place] [address] Care Team Providers Care Biztalk Software Developer Name Role Phone Unavailable Primary Care Provider Unavailabl e Encounter Details Date Type Department Care Team (Late st Contact Info) Description 01/03/2022 Transcribed Document [facility] Family Medicine [address] [place] [address] ProviderCarlos MD [address] [place] [id number] Social History Tobacco Use Types Packs/Day Years [...] 01/05/2022 0:18 EDT Electronically signed by Talya [facility] Conversion Carry Out Clerk Cerner at 02/02/2023 1:49 PM CDT documented in this encounter Plan of Treatment Not on file documented as of this encounter Visit Diagnoses Not on filedocumented in this encounter
--- OUTSIDE RECORDS SUMMARY | 2025-04-15 13:22 | XMS_ITS | Encounter Summary ---
Author Organization [employer] iatives Address [address] [place] [address] Care Team Providers Care Pre Owned Sales Manager Name Role Phone Unavailable Primary Care Provider Unavailabl e Encounter Details Date Type Department Care Team (Late st Contact Info) Description 01/08/2022 Transcribed Document [facility] Family Medicine [address] [place] [address] ProviderCarlos MD [address] [place] [address] Social History Tobacco Use Types Packs/Day Years [...]
--- OUTSIDE RECORDS SUMMARY | 2025-04-15 13:22 | XMS_ITS | Encounter Summary ---
Author Organization [employer] Address [address] [place] [address] Care Team Providers Care Mobile Device Developer Name Role Phone Unavailable Primary Care Provider Unavailabl e Encounter Details Date Type Department Care Team (Late st Contact Info) Description 01/07/2022 Transcribed Document [facility] [place] Family Medicine [address] [place] [address] ProviderCarlos MD [address], [place] [id number] Social History Tobacco Use Types Packs/Day Years [...] Policy Numbers : Insurance 1 Health Plan: [place] Medicaid Policy Number: [id number] Authorization Number: Insurance Primary Name : [place] Medicaid Policy Number: [id number] Authorization Status-Primary : Awaiting callback Reference Number-Primary : [id number] Authorized Service Begin Date-Primary : 01/03/2022 EDT Authorization Comments-Primary : Clinicals faxed via TalkTo for IP approval Historical Authorization Comments-Primary : Comment 1: AUTH SUBMITTED VIA [employer] ([employer]) /w CLINICALS ATTACHED (Olive Dolan RN 01/04/2022 15:27) ISAIAS NAVARRO RN - 01/07/2022 12:21 EDT documented in this encounter Plan of Treatment Not on file documented as of this encounter Visit Diagnoses Not on filedocumented in this encounter
--- OUTSIDE RECORDS SUMMARY | 2025-04-15 13:22 | XMS_ITS | Encounter Summary ---
Author Organization [employer] Address [address] [place] [address] Care Team Providers Care Plumbing Assembler Installer Name Role Phone Unavailable Primary Care Provider Unavailabl e Encounter Details Date Type Department Care Team (Late st Contact Info) Description 01/04/2022 Transcribed Document [facility] [place] [address] [place] [address] ProviderCarlos MD [address] [place], [place] [id number] Social History Tobacco Use Types Packs/Day Years [...] Policy Numbers : Insurance 1 Health Plan: [place] Medicaid Policy Number: [id number] Authorization Number: Insurance Primary Name : [place] Medicaid Policy Number: [id number] Reference Number-Primary : [id number] Authorized Service Begin Date-Primary : 01/03/2022 EDT Authorization Comments-Primary : AUTH SUBMITTED VIA [employer] /w CLINICALS ATTACHED Historical Authorization Comments-Primary : No Authorization Comments Found TERESA RUEDA RN - 01/04/2022 15:27 EDT documented in this encounter Plan of Treatment Not on file documented as of this encounter Visit Diagnoses Not on filedocumented in this encounter
--- OUTSIDE RECORDS SUMMARY | 2025-04-15 13:22 | XMS_ITS | Encounter Summary ---
Author Organization [employer] Address [address] [place] [address] Care Team Providers Care Territory Account Representative Name Role Phone Unavailable Primary Care Provider Unavailabl e Encounter Details Date Type Department Care Team (Late st Contact Info) Description 01/07/2022 Transcribed Document [facility] [place] Family Medicine [address] [place] [address] ProviderCarlos MD [address] [place], [place] [id number] Social History Tobacco Use Types Packs/Day Years [...] 14:16 EDT by RODDY PHILLIPS RN - Business Solutions ConsultantDepartment Secretary Progress Note Discharge Arrangements : Patient Post-Acute Information Patient Name: INEZ MALDONADO JR Gender: Male : 53 Age: 66 Years No Post-Acute Placement(s) Listed No Post-Acute Service(s) Listed No Curaspan Referral(s) Listed Patient Discharge Goal : Home Is the Patient Meeting Medical Necessity : Yes Did you Attend Multidisciplinary Rounds? : Yes RODDY PHILLIPS RN - Business Solutions Consultant - 01/07/2022 14:16 EDT Narrative Progress Note Narrative Progress Note : RRS Mod Day 01/20 Patient was admitted for renal failure. Hx CHF, COPD. Consults to neph. Order to discontinue his schmid catheter today. Per hospitalist note if his creatinine stays under 6 he can go home tomorrow 01/08. Probable discharge home with girlfriend to transport. DCP: home RODDY PHILLIPS, RN - Business Solutions Consultant - 01/07/2022 14:16 EDT Electronically signed by Talya [facility] Conversion Frame Stylist Cerner at 02/02/2023 1:53 PM CDT documented in this encounter Plan of Treatment Not on file documented as of this encounter Visit Diagnoses Not on filedocumented in this encounter
--- OUTSIDE RECORDS SUMMARY | 2025-04-15 13:22 | XMS_ITS | Clinical Summary ---
Author Organization [facility] Address [address] [place] [address] Care Team Providers Care Caster Helper Name Role Phone Kaveh Ryan MD Primary Care Provider + [phone] Kalli Shipley MD Unavailable + [phone] Allergies Active Allergy Reactions Criticality Noted Date [...] the morning. 05/16/20 22 Active HYDROcodone-acetam inophen (Saffell) 5-325 MG tablet 01/27/20 23 Active nitroglycerin [...] needed for erectile dysfunction. Active HYDROcodone-acetam inophen (Saffell) 7.5-325 MG tablet Take 7.5 tablets (56.25 [...] (02/25/2022): Added automatically from request for surgery [id number] Thrombocytopenia Resolved Problems Problem Noted Date Diagnosed [...] Description 05/12/2025 10:40 AM EDT Office Visit [facility] [address] [place] [address] Juliann Adrian, COMPENSATION CONSULTING MANAGER [address] [address] Health Maintenance Due Date Last [...] 2019 UKY-Diabetes: Hemoglobin A1C 02/25/202307/2022, 01/30/2022, 10/15/2015 [id number] Vaccine ( season) 2024 07/21/2022, 09/09/2021, 01/16/2021, [...] this topic Medical Devices Implanted Type Area Construction Millwright Device Identifier Shelf Expiration Date Model / Serial / Lot Graft Collagen 5x5cm Durepair Mater - [id number] Implanted:Qty: 1 on 02/26/2022 by Martin Banegas MD at [facility] [employer] (Tissue [id number] 07/18/2023 [id number] / / [id number] Cement Bone Pneum Mix 5cc Strl - [id number] Implanted:Qty: 1 on 02/26/2022 by Martin Banegas MD at [facility]-[id number] 12/16/2022 615.05 .01S / / [id number] Procedures Procedure Name Priority Date/Time Associated Diagnosis Comments HEPATITIS C ANTIBODY - ED W/REFLEX TO HCV QUANT PCR STAT 03/19/2022 10:48 AM EDT HEMOGLOBIN A1C Add-On 01/30/2022 8:46 PM EDT from Last 3 Months or Most Recently Relevant to Health Maintenance Results * [place] Hepatitis C Antibody (03/19/2022 10:48 AM EDT) Hepatitis C Antibody Negative Negative 03/19/2022 12:52 PM EDT [facility] Blood Venous blood specimen / Unknown Venipuncture / Unknown 03/19/2022 10:48 AM EDT 03/19/2022 11:14 AM EDT Giles Gonzales MD LAB BLOOD ORDERABLES Radha alves Result [facility] [address] [place] [id number] * (ABNORMAL) Hemoglobin A1c (01/30/2022 8:46 PM [...] Adults <6.0% Children and Adolescents <7.5% Source: [place] Diabetes Association. Standards of medical care in diabetes,2017. Diabetes Care.2017:40 (suppl 1):S1-S135. HbA1c assay performed by an ion-exchange chromatography method that is certified traceable to the DCCT. Omid Steven MD LAB BLOOD ORDERABLES Final Result [facility]ARE [facility] [address] [place] [address] from Last 3 Months or Most Recently [...] would not be sustained on a ventilator longwall shearer operator. Question Answer Comments DNR determined on/before admission [...] of Healthcare Surrogate: Elias Maldonado Care Teams Caster Helper Relationship Specialty Start Date End Date Kaveh Ryan MD [address] [place] [id number] PCP - General 05/28/22 Kalli Shipley MD [id number] [place] [address] Service Attending Neurology 05/28/22
--- OUTSIDE RECORDS SUMMARY | 2025-04-15 13:22 | XMS_ITS | Encounter Summary ---
Author Organization [employer] Address [address] [place] [address] Care Team Providers Care Nuclear Weapons Mechanical Specialist Name Role Phone Unavailable Primary Care Provider Unavailabl e Encounter Details Date Type Department Care Team (Late st Contact Info) Description 01/05/2022 Transcribed Document [facility] [place] [address] [place] [address] ProviderCarlos MD [address] [place] [address] Social History Tobacco Use Types Packs/Day Years [...]
--- OUTSIDE RECORDS SUMMARY | 2025-04-15 13:22 | XMS_ITS | Encounter Summary ---
Author Organization [employer] Address [address] [place] [address] Care Team Providers Care Sailor Name Role Phone Unavailable Primary Care Provider Unavailabl e Encounter Details Date Type Department Care Team (Late st Contact Info) Description 01/08/2022 Transcribed Document [facility] [place] [address] [place] [address] ProviderCarlos MD [address] [place] [address] Social History Tobacco Use Types Packs/Day Years [...]
--- OUTSIDE RECORDS SUMMARY | 2025-04-15 13:22 | XMS_ITS | Encounter Summary ---
Author Organization [employer] Address [address] [place] [address] Care Team Providers Care Fisher Terrapin Name Role Phone Unavailable Primary Care Provider Unavailabl e Encounter Details Date Type Department Care Team (Late st Contact Info) Description 01/08/2022 Transcribed Document [facility] [place] [address] [place] [address] ProviderCarlos MD [address] [place] [address] Social History Tobacco Use Types Packs/Day Years [...] Historical ProviderMD - 01/08/2022 2:00 AM CDT Cooling Room Attendant Details Entered On: 01/08/2022 6:49 EDT Performed [...]
--- OUTSIDE RECORDS SUMMARY | 2025-04-15 13:22 | XMS_ITS | Encounter Summary ---
Author Organization [employer] Address [address] [place] [address] Care Team Providers Care Java Solutions Architect Name Role Phone Unavailable Primary Care Provider Unavailabl e Encounter Details Date Type Department Care Team (Late st Contact Info) Description 01/08/2022 Transcribed Document [facility] [place] Family Medicine [address] [place] [address] ProviderCarlos MD [facility] [place] [address] Social History Tobacco Use Types [...] Carlos ProviderMD - 01/08/2022 11:05 AM CDT [facility] [place] [address] INEZ SHOOK JR :1955 Visit Time:01/03/2022 Your Visit Summary Your Care Team Admitting Physician - LUISA WILSON MD-INT Attending Physician - ANA TORRES DO Primary Care Physician - SINCERE OBNILLA (REF)MD-FAM Referring Physician - SAMY, SELF REFERRED [...] you Where: [address] [place] [address]- Business (1) Follow Up with SINCERE BONILLA When 01/15/2022 03:15 PM EDT Comments PCP appt made, Bring discharge instructions with you Where: [address] [place] [address]- Medications What How Much When Instructions Next Dose hydrALAZINE (hydrALAZINE 25 mg oral tablet) 1 Tablet(s) Oral Two Times A Day Duration: 30 Day(s) Pickup at [facility] this evening Non Formulary (lab draw) See [...] improves and your are cleared by your pattern hand to resume higher dose. Pickup at [facility] this evening gabapentin (gabapentin 600 mg oral [...] release) Oral Every Day tomorrow Pharmacy Information [facility] [place]: [address] [facility] [address] [place], [place] [id number] [phone] Take your medications faithfully. Do NOT skip [...] these instructions at home: Medicines ??? Take hdvr-myk-bqvrztj and prescription medicines only as told by [...] important. Where to find more information ??? [place] Association of Kidney Patients: www.aakp.org ??? National Kidney Foundation: www.kidney.org ??? [place] Kidney Fund: www.akfinc.org ??? [facility] [...] provider. Document Revised: 08/14/2020 Document Reviewed: 08/14/2020 Elsecrealytics Patient Education ?? 2020 [employer] Heart Failure Action Plan A heart failure [...] Follow these instructions at home: ??? Take cwoh-rkk-hxlcorh and prescription medicines only as told by your health care provider. ??? Weigh yourself daily. Your target weight is lb ( kg). ? Call your health care provider if you gain more than lb ( kg) in a day, or more than lb ( kg) in one week. ??? Eat a heart-healthy diet. Work with a diet and nutrition coordinator (dietitian) to create an eating plan that is best for you. ??? Keep all follow-up visits as told by your health care provider. This is important. Where to find more information ??? [place] Heart Association: www.heart.org Summary ??? Follow the [...] provider. Document Revised: 09/17/2018 Document Reviewed: 11/14/2017 Elsecrealytics Patient Education ?? 2020 Elsevier Inc. Chronic [...] these instructions at home: Medicines ??? Take zxch-oyl-cdznwpq and prescription medicines only as told by [...] cannot use soap and water, use hand dipper and baker. ??? During flu season, avoid areas that [...] provider. Document Revised: 09/17/2018 Document Reviewed: 11/09/2017 Elsecrealytics Patient Education ?? 2020 [employer]. Carbohydrate Counting for Diabetes Mellitus, Adult [...] foods that contain carbohydrates: ??? Rice. ??? [place]. ??? Milk. ??? Strawberries. 2. Calculate how [...] snacks. Where to find more information ??? [place] Diabetes Association: www.diabetes.org ??? Centers for Disease [...] Reviewed: 10/05/2020 Elsevier Patient Education ?? 2020 [employer] Diabetes Mellitus and Skin Care Diabetes, also [...] sclerosis). ??? Brown or red, ring-shaped or maby-hwuu-attgbl patches of skin on the ears or [...] provider. Document Revised: 07/10/2020 Document Reviewed: 07/24/2020 [employer]lane Patient Education ?? 2020 [employer]. Diabetes Mellitus and Nutrition, Adult When [...] Carrots. Green beans. Tomatoes. Peppers. Onions. Cucumbers. [place] sprouts. Grains Whole grains, such as whole-wheat [...] Do I need to meet with a museum educator? Do I need to meet with a dietitian? What number can I call if I have questions? When are the best times to check my blood glucose? Where to find more information: ??? [place] Diabetes Association: diabetes.org ??? Academy of Nutrition and Dietetics: www.eatright.org ??? National [place] of Diabetes and Digestive and Kidney Diseases: [...] provider. Document Revised: 09/11/2020 Document Reviewed: 09/11/2020 [employer] Patient Education ?? 2020 [employer] 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 Some people have thoughts about suicide while [...] may report side effects to FDA at 1-104-NES-8373. What other drugs will affect gabapentin? Using gabapentin with other drugs that make you drowsy or slow your breathing can cause dangerous side effects or . Ask your doctor before using opioid medication, a sleeping pill, cold or allergy medicine, a muscle relaxer, or medicine for anxiety or seizures. Other drugs may affect gabapentin, including prescription and tadl-mji-xeohpyi medicines, vitamins, and herbal products. Tell your [...] to ensure that the information provided by [employer]. ('Multum') is accurate, up-to-date, and complete, but no guarantee is made to that effect. Drug information contained herein may be time sensitive. [employer] information has been compiled for use by healthcare practitioners and consumers in the [place] and therefore [employer] does not warrant that uses outside of the [place] are appropriate, unless specifically indicated otherwise. [employer] drug information does not endorse drugs, diagnose patients or recommend therapy. [employer] drug information is an informational resource designed [...] effective or appropriate for any given patient. [facility] does not assume any responsibility for any aspect of healthcare administered with the aid of information [facility] provides. The information contained herein is not intended to cover all possible uses, directions, precautions, warnings, drug interactions, allergic reactions, or adverse effects. If you have questions about the drugs you are taking, check with your doctor, nurse or pharmacist. Copyright 2133-8793 [facility]Algebraix Data. Version: 17.. Revision Date: 11/13/2020. hydralazine (ju [...] may report side effects to FDA at 5-060-CDL-9973. What other drugs will affect hydralazine? Tell your doctor about all your current medicines and any you start or stop using, especially: ?? diazoxide (an injectable blood pressure medication); or ?? an MAO inhibitor--isocarboxazid, linezolid, methylene blue injection, phenelzine, rasagiline, selegiline, tranylcypromine, and others. This list is not complete. Other drugs may interact with hydralazine, including prescription and xdxo-gih-ggtehkk medicines, vitamins, and herbal products. Not all [...] to ensure that the information provided by [employer]. ('Multum') is accurate, up-to-date, and complete, but no guarantee is made to that effect. Drug information contained herein may be time sensitive. [employer] information has been compiled for use by healthcare practitioners and consumers in the [place] and therefore [employer] does not warrant that uses outside of the [place] are appropriate, unless specifically indicated otherwise. [employer] drug information does not endorse drugs, diagnose patients or recommend therapy. [employer] drug information is an informational resource designed [...] effective or appropriate for any given patient. [employer] does not assume any responsibility for any aspect of healthcare administered with the aid of information [employer] provides. The information contained herein is not intended to cover all possible uses, directions, precautions, warnings, drug interactions, allergic reactions, or adverse effects. If you have questions about the drugs you are taking, check with your doctor, nurse or pharmacist. Copyright 4093-0623 [employer]. Version: 5.01. Revision Date: 10/28/2017. lisinopril (lyse [...] have an allergic reaction if you are -[place]. Call your doctor at once if you have: ?? a light-headed feeling, like you might pass out; ?? fever, sore throat; documented in this encounter Plan of Treatment Not on file documented as of this encounter Visit Diagnoses Not on filedocumented in this encounter
--- OUTSIDE RECORDS SUMMARY | 2025-04-15 13:22 | XMS_ITS | Encounter Summary ---
Author Organization [employer] Address [address] [place] [address] Care Team Providers Care Director Of Convention Services Name Role Phone Unavailable Primary Care Provider Unavailabl e Encounter Details Date Type Department Care Team (Late st Contact Info) Description 01/08/2022 Transcribed Document [facility] [place] Family [place] [address] [place] [address] ProviderCarlos MD [facility] [place], [place] [address] Social History Tobacco Use Types Packs/Day Years [...] Medical At risk for violence / IMO [id number] / Confirmed History of obstructive sleep apnea / IMO [id number] / Confirmed, Active Problems (8) At risk [...] to follow up as outpatient after discharge. Electronically signed by Jayde Babin Conversion Early Childhood Services Coordinator Cerner at 02/02/2023 2:02 PM CDT documented in this encounter Plan of Treatment Not on file documented as of this encounter Visit Diagnoses Not on filedocumented in this encounter
--- OUTSIDE RECORDS SUMMARY | 2025-04-15 13:22 | XMS_ITS | Encounter Summary ---
Author Organization [employer] Address [address] [place] [address] Care Team Providers Care Facilities Supervisor Name Role Phone Unavailable Primary Care Provider Unavailabl e Encounter Details Date Type Department Care Team (Late st Contact Info) Description 01/08/2022 Transcribed Document [facility] [place] Family Medicine [address] [place] [address] ProviderCalros MD [facility] [place] [place] [address] Social History Tobacco Use Types [...] 14 mL/min/1.73m2 LOW 01/08/2022 09:26 Bun/Creatinine 21.0 [place] 01/08/2022 09:26 eGFR NonAfrican 12 mL/min/1.73m2 LOW 01/08/2022 09:26 Creatinine Level 4.90 mg/dL [place] 01/08/2022 09:26 Sodium Level 143 mmol/L 01/08/2022 09:26 Potassium Level 3.7 mmol/L 01/08/2022 09:26 Chloride Level 109 mmol/L 01/08/2022 09:26 Carbon Dioxide Level 22 mmol/L 01/08/2022 09:26 Anion Gap 16 01/08/2022 09:26 Blood Urea Nitrogen 103 mg/dL CRIT 01/08/2022 09:26 Glucose Level 137 mg/dL [place] 01/08/2022 09:26 Albumin Level 2.5 Gram/dL LOW [...] type 2 dm - a1c 6.7 - [facility]: Mr. Shook is a 66 year old male with history of CHF type unknown, HTN, INOCENTE, COPD who presented to outside hospital with one week of nausea and vomiting, there he was found ot have creatinine over 11 and was sent to [facility] for nephrology evaluation. Here IV fluids [...] on discharge: 35 min Ana [facility]abor Hospitalist documented in this encounter Plan of Treatment Not on file documented as of this encounter Visit Diagnoses Not on filedocumented in this encounter
--- OUTSIDE RECORDS SUMMARY | 2025-04-15 13:22 | XMS_ITS | Encounter Summary ---
Author Organization [employer] Address [address] [place] [address] Care Team Providers Care Assistant City Attorney Name Role Phone Unavailable Primary Care Provider Unavailabl e Encounter Details Date Type Department Care Team (Late st Contact Info) Description 01/04/2022 Transcribed Document [facility] [place] [address] [place] [address] ProviderCarlos MD [address] [place] [address] Social History Tobacco Use Types Packs/Day Years [...] 01/04/2022 10:16 EDT by Mikaela Mendoza Patient Retort Cooler Phan Phone Call for Consults Consult Phone Call/Page Attempt : First call Consult Reason : ZAHRA Provider Service Notified Name : Nephrology Physician Returning Call : SEBASTIÁN RUTH MD-NEP Consult, Additional Information : Consult called on 01/04/2022 spoke with Sebastián Montanez. is aware of the consult and pt is on his list. Mikaela Mendoza Patient Retort Cooler I - 01/04/2022 10:49 EDT documented in this encounter Plan of Treatment Not on file documented as of this encounter Visit Diagnoses Not on filedocumented in this encounter
--- OUTSIDE RECORDS SUMMARY | 2025-04-15 13:22 | XMS_ITS | Encounter Summary ---
Author Organization [employer] Address [address] [place] [address] Care Team Providers Care Community Dietitian Name Role Phone Unavailable Primary Care Provider Unavailabl e Encounter Details Date Type Department Care Team (Late st Contact Info) Description 01/05/2022 Transcribed Document [facility] [place] Family Medicine [address] [place] [address] ProviderCarlos MD [address] [place] [address] Social History Tobacco Use Types Packs/Day Years [...] Historical ProviderMD - 01/05/2022 2:00 AM CDT Crusher Foreman Details Entered On: 01/05/2022 0:20 EDT Performed [...]
--- OUTSIDE RECORDS SUMMARY | 2025-04-15 13:22 | XMS_ITS | Encounter Summary ---
Author Organization [employer]ways InCompany iatives Address [address] [facility] [place] [address] Care Team Providers Care Game Developer Name Role Phone Unavailable Primary Care Provider Unavailabl e Encounter Details Date Type Department Care Team (Late st Contact Info) Description 01/03/2022 Transcribed Document [facility] [place] Family Medicine Replaced by [facility] [place] [address] ProviderCarlos MD [facility]placed [facility] [place] [address] Social History Tobacco Use Types Packs/Day Years [...] [place] Emergency Contact #1 Phone Number : [phone] Emergency Contact #1 Relationship : girlfriend Emergency Contact #2 : none Emergency Contact #2 Phone Number : none Emergency Contact #2 Relationship : none Primary Language : Turkish Communication Barrier : Cognitive Through Operator Needed : No Ang Regan NON [...] Level : 46 or > High Risk [place] Fall Interventions : Adequate lighting, Assistive devices [...] Source : Stated Height Entry Format : [place] Height, Feet : 5 ft(Converted to: 152 cm, 60 Inch) Height, Inches : 8 Inch(Converted to: 0 ft 8 Inch, 20.32 cm) Clinical Height : 172.72 cm [place] Body Weight : 67 kg Ang Regan NON EMP RN - 01/03/2022 21:38 EDT Estimated Weight Type of Weight Measurement Est : [place] Weight, est lb : 260 lb(Converted to: [...] NON EMP RN - 01/03/2022 21:38 EDT [place] Suicide Severity Rating Scale (C-SSRS) CSSRS Past [...]
--- OUTSIDE RECORDS SUMMARY | 2025-04-15 13:22 | XMS_ITS | Encounter Summary ---
Author Organization [employer] iatives Address [address] [facility] [place] [address] Care Team Providers Care Frame Table Operator Helper Name Role Phone Unavailable Primary Care Provider Unavailabl e Encounter Details Date Type Department Care Team (Late st Contact Info) Description 01/08/2022 Transcribed Document [facility] [place] [address] [place] [address] ProviderCarlos MD [address] [place] [address] Social History Tobacco Use Types Packs/Day Years [...] 12:49 EDT by RODDY PHILLIPS RN - Drafter Seismograph Final Discharge Planning Discharge Arrangements : Patient [...] : Yes Discharge To Care Management : Home/Residential/Fdc or Self Care -01 JACQUELINE, RODDY, RN - Drafter Seismograph - 01/08/2022 12:49 EDT documented in this encounter Plan of Treatment Not on file documented as of this encounter Visit Diagnoses Not on filedocumented in this encounter
--- OUTSIDE RECORDS SUMMARY | 2025-04-15 13:22 | XMS_ITS | Encounter Summary ---
Author Organization [employer]als iatives Address [address] [facility] [place] [address] Care Team Providers Care Crabber Name Role Phone Unavailable Primary Care Provider Unavailabl e Encounter Details Date Type Department Care Team (Late st Contact Info) Description 01/03/2022 Transcribed Document [facility] [place] [address] [place] [address] ProviderCarlos MD [address] [place] [address] Social History Tobacco Use Types Packs/Day Years [...]
--- OUTSIDE RECORDS SUMMARY | 2025-04-15 13:22 | XMS_ITS | Encounter Summary ---
Author Organization [employer] iatives Address [address] [facility] [place] [address] Care Team Providers Care Proof Tester Name Role Phone Unavailable Primary Care Provider Unavailabl e Encounter Details Date Type Department Care Team (Late st Contact Info) Description 01/08/2022 Transcribed Document [facility] [place] Family Medicine [address] [place] [address] ProviderCarlos MD [address] [place], [place] [address] Social History Tobacco Use Types Packs/Day Years [...]
--- OUTSIDE RECORDS SUMMARY | 2025-04-15 13:22 | XMS_ITS | Encounter Summary ---
Author Organization [employer]KA [employer] InStand Offer iatives Address [address] [place] [address] Care Team Providers Care Sanitation Worker Cleaning Machinery Name Role Phone Unavailable Primary Care Provider Unavailabl e Encounter Details Date Type Department Care Team (Late st Contact Info) Description 01/05/2022 Transcribed Document [facility] [place] Medicine [address] [place] [address] ProviderCarlos MD [facility] [place] [address] Social History Tobacco Use Types [...] (JAN 03) Radiology Results (Last 48 hours) [id number] -- 01/03/2022 20:35 US Renal Comp (01/04/2022 [...] when ZAHRA resolved. Ana Tabor Hospitalist pager- [phone] documented in this encounter Plan of Treatment Not on file documented as of this encounter Visit Diagnoses Not on filedocumented in this encounter
--- OUTSIDE RECORDS SUMMARY | 2025-04-15 13:22 | XMS_ITS | Encounter Summary ---
Author Organization [employer] iatives Address [address] [place] [address] Care Team Providers Care Associate Professor Of Geography Name Role Phone Unavailable Primary Care Provider Unavailabl e Encounter Details Date Type Department Care Team (Late st Contact Info) Description 01/04/2022 Transcribed Document [facility] [place] [address] [place] [address] ProviderCarlos MD [facility] [place] [address] Social History Tobacco Use Types Packs/Day Years [...] Pain Scale Used : 0-10 Scale EMMA IDEGO LPN - 01/06/2022 2:09 EDT Pain Scale [...]
--- OUTSIDE RECORDS SUMMARY | 2025-04-15 13:22 | XMS_ITS | Referral Summary ---
Author Organization [employer]at In iatives Address [address] [place] [address] Care Team Providers Care Corporation Pilot Name Role Phone Unavailable Primary Care Provider [...]
--- OUTSIDE RECORDS SUMMARY | 2025-04-15 13:22 | XMS_ITS | Encounter Summary ---
Author Organization [employer] iatives Address [address] [place] [address] Care Team Providers Care Television News Photographer Name Role Phone Unavailable Primary Care Provider Unavailabl e Encounter Details Date Type Department Care Team (Late st Contact Info) Description 01/08/2022 Transcribed Document [facility] [place] [address] [place] [address] ProviderCarlos MD [address] [place], [place] [address] Social History Tobacco Use Types Packs/Day Years [...] 01/08/2022 2:24 PM CDT SAMINA BONILLA, [address] [place] [address] Re: INEZ SHOOK Date of Visit: 01/03/2022 [...] is strictly prohibited. Sincerely, ANA TORRES [address] [facility] [address] [place] [address] The following document(s) were included in the letter: January 08, 2022 10:37:00 EDT - (01/08/2022) Discharge Summary * documented in this encounter Plan of Treatment Not on file documented as of this encounter Visit Diagnoses Not on filedocumented in this encounter
--- OUTSIDE RECORDS SUMMARY | 2025-04-15 13:22 | XMS_ITS | Encounter Summary ---
Author Organization [employer]I-[employer] iatives Address [address] [place] [address] Care Team Providers Care Tie Bucker Name Role Phone Unavailable Primary Care Provider Unavailabl e Encounter Details Date Type Department Care Team (Late st Contact Info) Description 01/03/2022 Transcribed Document [facility] [place] [address] [place] [address] ProviderCarlos MD [address] [place] [address] Social History Tobacco Use Types Packs/Day Years [...] 01/03/2022 21:25 EDT by Mikaela Mendoza Patient Estimation Manager Phan Phone Call for Consults Consult Phone Call/Page Attempt : First call Consult Reason : ZAHRA Consult, Additional Information : pt was seen on by Dr. Sanchez Prue. Mikaela Mendoza, Patient Estimation Manager I - 01/04/2022 17:26 EDT documented in this encounter Plan of Treatment Not on file documented as of this encounter Visit Diagnoses Not on filedocumented in this encounter
--- OUTSIDE RECORDS SUMMARY | 2025-04-15 13:22 | XMS_ITS | Encounter Summary ---
Author Organization Stir [employer]Glow[employer] iatives Address [address] [place] [address] Care Team Providers Care Lithostripper Name Role Phone Unavailable Primary Care Provider Unavailabl e Encounter Details Date Type Department Care Team (Late st Contact Info) Description 01/06/2022 Transcribed Document [facility] [place] [address] [place] [address] ProviderCarlos MD [address] [place] [address] Social History Tobacco Use Types Packs/Day Years [...]
--- OUTSIDE RECORDS SUMMARY | 2025-04-15 13:22 | XMS_ITS | Encounter Summary ---
Author Organization [employer] InWeatlas iatives Address [address] [place] [address] Care Team Providers Care Yarn Weigher Name Role Phone Unavailable Primary Care Provider Unavailabl e Encounter Details Date Type Department Care Team (Late st Contact Info) Description 01/07/2022 Transcribed Document [facility] [place] Family Medicine [address] [place] [address] ProviderCarlos MD [address] [place] [address] Social History Tobacco Use Types [...] december 2021 and that he is at [facility], knows correct age and . no tremor. [...] creatinine < 6.0 Ana Tabor Hospitalist pager- [phone] documented in this encounter Plan of Treatment Not on file documented as of this encounter Visit Diagnoses Not on filedocumented in this encounter
--- OUTSIDE RECORDS SUMMARY | 2025-04-15 13:22 | XMS_ITS | Encounter Summary ---
Author Organization [employer]IV[employer] iatives Address [address] [place] [address] Care Team Providers Care Land Clearer Name Role Phone Unavailable Primary Care Provider Unavailabl e Encounter Details Date Type Department Care Team (Late st Contact Info) Description 01/08/2022 Transcribed Document [facility] [place] [place] [address] [place] [address] ProviderCarlos MD [address] [place], [place] [address] Social History Tobacco Use Types Packs/Day Years [...] Follow these instructions at home: ??? Take qjns-fuf-pxpouuu and prescription medicines only as told by your health care provider. ??? Weigh yourself daily. Your target weight is lb ( kg). ? Call your health care provider if you gain more than lb ( kg) in a day, or more than lb ( kg) in one week. ??? Eat a heart-healthy diet. Work with a diet and nutrition representative (dietitian) to create an eating plan that is best for you. ??? Keep all follow-up visits as told by your health care provider. This is important. Where to find more information ??? [place] Heart Association: www.heart.org Summary ??? Follow the [...] provider. Document Revised: 09/17/2018 Document Reviewed: 11/14/2017 [employer] Patient Education ? 2020 [employer] Endocrinology Carbohydrate Counting for Diabetes Mellitus, [...] foods that contain carbohydrates: ??? Rice. ??? [place]. ??? Milk. ??? Strawberries. 2. Calculate how [...] snacks. Where to find more information ??? [place] Diabetes Association: www.diabetes.org ??? Centers for Disease [...] provider. Document Revised: 10/04/2020 Document Reviewed: 10/05/2020 [employer] Patient Education ? 2020 [employer] Diabetes Mellitus and Skin Care Diabetes, [...] sclerosis). ??? Brown or red, ring-shaped or mwmz-qzfz-legjmk patches of skin on the ears or [...] provider. Document Revised: 07/10/2020 Document Reviewed: 07/24/2020 [employer] Patient Education ? 2020 [employer] Diabetes Mellitus and Nutrition, Adult When [...] Berries. Apples. Oranges. Peaches. Apricots. Plums. Grapes. [place]. Papaya. Pomegranate. Kiwi. Cherries. Vegetables Lettuce. Spinach. Leafy greens, including kale, chard, giovanni greens, and mustard greens. Beets. Cauliflower. Cabbage. Broccoli. Carrots. Green beans. Tomatoes. Peppers. Onions. Cucumbers. [place] sprouts. Grains Whole grains, such as whole-wheat [...] Do I need to meet with a assistant professor of sociology? Do I need to meet with a dietitian? What number can I call if I have questions? When are the best times to check my blood glucose? Where to find more information: ??? [place] Diabetes Association: diabetes.org ??? Academy of Nutrition and Dietetics: www.eatright.org ??? National [place] of Diabetes and Digestive and Kidney Diseases: [...] provider. Document Revised: 09/11/2020 Document Reviewed: 09/11/2020 [employer] Patient Education ? 2020 EDAN. Nephrology Acute Kidney Injury, Adult Acute kidney [...] these instructions at home: Medicines ??? Take lnfh-rnf-knsxdqq and prescription medicines only as told by [...] important. Where to find more information ??? [place] Association of Kidney Patients: www.aakp.org ??? National Kidney Foundation: www.kidney.org ??? [place] Kidney Fund: www.akfinc.org ??? Life Options Rehabilitation [...] provider. Document Revised: 08/14/2020 Document Reviewed: 08/14/2020 [employer] Patient Education ? 2020 EDAN. Pulmonary Medicine Chronic Obstructive Pulmonary Disease Exacerbation [...] these instructions at home: Medicines ??? Take wtej-mib-aewvgsr and prescription medicines only as told by [...] cannot use soap and water, use hand trolley car mechanic. ??? During flu season, avoid areas that [...] provider. Document Revised: 09/17/2018 Document Reviewed: 11/09/2017 [employer] Patient Education ? 2020 [employer] documented in this encounter Plan of Treatment Not on file documented as of this encounter Visit Diagnoses Not on filedocumented in this encounter
--- OUTSIDE RECORDS SUMMARY | 2025-04-15 13:22 | XMS_ITS | Encounter Summary ---
Author Organization [employer] on the Run Inavandeo iatives Address [address] [facility] [place] [address] Care Team Providers Care Agricultural Sales Representative Name Role Phone Unavailable Primary Care Provider Unavailabl e Encounter Details Date Type Department Care Team (Late st Contact Info) Description 01/04/2022 Transcribed Document [facility] [place] [address] [place] [address] ProviderCarlos MD [address] [place], [place] [address] Social History Tobacco Use Types Packs/Day Years [...] Paulson and Dr. Rocha Note dictated with [employer] recognition system Problem List/Past Medical History Ongoing [...] mg= 1 Tab, Oral, Daily Vitamin D2, 89228 Units= 1 Cap, Oral, Weekly Home acetaminophen-oxyCODONE [...] Allergies Imdur Social History , lives in [facility], former smoker, no active illegal drug [...] # 0.72 x10(3)/uL (Low) 01/03/2022 21:48 EDT [place] % 11.9 % (High) 01/04/2022 06:38 EDT [place] % 8.9 % 01/03/2022 21:48 EDT [place] # 0.80 K/uL 01/04/2022 06:38 EDT [place] # 0.73 K/uL 01/03/2022 21:48 EDT Eos [...] 01/03/2022 21:48 EDT Electronically signed by Talya [facility] Conversion Air Conditioning Manager Cerner at 02/02/2023 1:41 PM CDT documented in this encounter Plan of Treatment Not on file documented as of this encounter Visit Diagnoses Not on filedocumented in this encounter
--- OUTSIDE RECORDS SUMMARY | 2025-04-15 13:22 | XMS_ITS | Encounter Summary ---
Author Organization ContactUs.com InTelerivet iatives Address [address] [place] [address] Care Team Providers Care School Cafeteria Cook Name Role Phone Unavailable Primary Care Provider Unavailabl e Encounter Details Date Type Department Care Team (Late st Contact Info) Description 01/06/2022 Transcribed Document [facility] [place] [address] [place] [address] ProviderCarlos MD [address] [place] [address] Social History Tobacco Use Types [...] (JAN 03) Radiology Results (Last 48 hours) [id number] -- 01/03/2022 20:35 CR Abdomen 1 Vw [...] in 2 days. Ana Tabor Hospitalist pager- [phone] documented in this encounter Plan of Treatment Not on file documented as of this encounter Visit Diagnoses Not on filedocumented in this encounter
--- OUTSIDE RECORDS SUMMARY | 2025-04-15 13:22 | XMS_ITS | Encounter Summary ---
Author Organization [employer] iatives Address [address] [place] [address] Care Team Providers Care Cobbler Apprentice Name Role Phone Unavailable Primary Care Provider Unavailabl e Encounter Details Date Type Department Care Team (Late st Contact Info) Description 01/05/2022 Transcribed Document [facility] [place] [address] [place] [address] ProviderCarlos MD [facility] [place], [place] [address] Social History Tobacco Use Types Packs/Day Years [...] assessment additional narrative Description of Event : SERVICE ORDER DISPATCHER CHIEF approached RN at shift change stating that [...] comfortable with call light. At approximately 0015, SERVICE ORDER DISPATCHER CHIEF approached RN stating that patient had again [...] Callahan V RN - 01/05/2022 0:40 EDT Electronically signed by Jayde Babin Conversion Program Director/Music Director Cerner at 02/02/2023 1:41 PM CDT documented in this encounter Plan of Treatment Not on file documented as of this encounter Visit Diagnoses Not on filedocumented in this encounter
--- OUTSIDE RECORDS SUMMARY | 2025-04-15 13:22 | XMS_ITS | Encounter Summary ---
Author Organization Digital Message Display Inmemloom iatives Address [address] [place] [address] Care Team Providers Care Lobster Catcher Name Role Phone Unavailable Primary Care Provider Unavailabl e Encounter Details Date Type Department Care Team (Late st Contact Info) Description 01/06/2022 Transcribed Document [facility] [place] [address] [place] [address] ProviderCarlos MD [address] [place] [address] Social History Tobacco Use Types Packs/Day Years [...] Historical ProviderMD - 01/06/2022 2:00 AM CDT Retail Department Supervisor Details Entered On: 01/06/2022 2:10 EDT Performed [...]
--- OUTSIDE RECORDS SUMMARY | 2025-04-15 13:22 | XMS_ITS | Encounter Summary ---
Author Organization [facility] Address [address] [place] [address] Care Team Providers Care Financial Cost Analyst Name Role Phone Kaveh Ryan MD Primary Care Provider + [phone] Kalli Shipley MD Unavailable + [phone] Reason for Visit * Reason Comments Med Refill Encounter Details Date Type Department Care Team (Late st Contact Info) Description 05/07/2023 [facility]ill [place] [facility] [address] [place] [address] Kalli Shipley MD [address] [place] [address] Social History Tobacco Use Types [...] Description 05/12/2025 10:40 AM EDT Office Visit [facility] [address] [place] [address] Juliann Adrian, NECKTIES PAINTER [address] [facility] [address] [place] [address] documented as of this encounter Visit Diagnoses Not on filedocumented in this encounter Additional Health Concerns Assessment Noted Time A fall risk assessment has been complete d for the patient 02/26/2023 9:15 AM EDT A Body Mass Index follow-up plan has been documented for the patient 02/26/2023 12:36 PM EDT documented as of this encounter Care Teams Financial Cost Analyst Relationship Specialty Start Date End Date Kaveh Ryan MD [address] [facility] [place] [address] PCP - General 05/28/22 Kalli Shipley MD [address] [facility] [address] [place] [address] Service Attending Neurology 05/28/22 documented as of this encounter
--- OUTSIDE RECORDS SUMMARY | 2025-04-15 13:22 | XMS_ITS | Encounter Summary ---
Author Organization Omni-ID InHippo Manager Software iatives Address [address] [place] [address] Care Team Providers Care Appliquer Name Role Phone Unavailable Primary Care Provider Unavailabl e Encounter Details Date Type Department Care Team (Late st Contact Info) Description 01/05/2022 Transcribed Document [facility] [place] [address] [place] [address] ProvideraCrlos MD [address] [place], [place] [address] Social History Tobacco Use Types [...] mg= 1 Tab, Oral, Daily Vitamin D2, [address] Units= 1 Cap, Oral, Weekly Lab Results [...] 133 mg/dL 01/05/2022 10:47 EDT Sodium Ur Hyder 31 mMole/Liter 01/05/2022 10:47 EDT [address] [...] # 0.58 x10(3)/uL (Low) 01/05/2022 08:52 EDT [place] % 5.9 % 01/05/2022 08:52 EDT [place] # 0.31 K/uL 01/05/2022 08:52 EDT Eos [...]
--- OUTSIDE RECORDS SUMMARY | 2025-04-15 13:22 | XMS_ITS | Encounter Summary ---
Author Organization [employer] InCloudLink Tech iatives Address [address] [place] [address] Care Team Providers Care Livestock Breeder Name Role Phone Unavailable Primary Care Provider Unavailabl e Encounter Details Date Type Department Care Team (Late st Contact Info) Description 01/07/2022 Transcribed Document [facility] Family Medicine [address] [place] [address] ProviderCarlos MD [facility] [place], [place] [address] Social History Tobacco Use Types Packs/Day Years [...] Medical At risk for violence / IMO [id number] / Confirmed History of obstructive sleep apnea / IMO [id number] / Confirmed, Active Problems (8) At risk [...]
--- OUTSIDE RECORDS SUMMARY | 2025-04-15 13:22 | XMS_ITS | Encounter Summary ---
Author Organization [employer] iatives Address [address] [place] [address] Care Team Providers Care Evp Marketing Name Role Phone Unavailable Primary Care Provider Unavailabl e Encounter Details Date Type Department Care Team (Late st Contact Info) Description 01/06/2022 Transcribed Document [facility] [place] [address] [place] [address] ProviderCarlos MD [address] [place] [address] Social History Tobacco Use Types Packs/Day Years [...] On: 01/06/2022 13:33 EDT by Donaldo Darden Rn Stars Cert Lead Meds to Bed Enrollment Patient Enrollment Decision: : Yes/enroll in meds to bed program Donaldo Darden Rn Stars Cert Lead - 01/06/2022 13:33 EDT documented in this encounter Plan of Treatment Not on file documented as of this encounter Visit Diagnoses Not on filedocumented in this encounter
--- OUTSIDE RECORDS SUMMARY | 2025-04-15 13:22 | XMS_ITS | Encounter Summary ---
Author Organization Gudeng [employer] InWhotever iatives Address [address] [facility] [place] [address] Care Team Providers Care Maternal Fetal Physician Name Role Phone Unavailable Primary Care Provider Unavailabl e Encounter Details Date Type Department Care Team (Late st Contact Info) Description 01/08/2022 Transcribed Document [facility] [place] [address] [place] [address] ProviderCarlos MD [facility] [place], [place] [address] Social History Tobacco Use Types Packs/Day Years [...] On: 01/08/2022 8:33 EDT by Celia Rodriguez, CONTROL OFFICER Patient Resource Center Provider Status : EST Other Established Provider Name : Kaveh Ryan Patient Phone Number : [phone] Patient Insurance Type : Medicaid (ex. Well[employer], [...] at ED : Other Primary Language : [place] Patient Resource Center Comment : PCP and NEPH appts made Follow Up Needed : Celia Jamse, CONTROL OFFICER - 01/08/2022 8:33 EDT Electronically signed by [facility], [facility] Conversion Company Doctor Cerner at 02/02/2023 2:06 PM CDT documented in this encounter Plan of Treatment Not on file documented as of this encounter Visit Diagnoses Not on filedocumented in this encounter
--- OUTSIDE RECORDS SUMMARY | 2025-04-15 13:22 | XMS_ITS | Encounter Summary ---
Author Organization [employer] Address [address] [place] [address] Care Team Providers Care News Clipping Cutter Name Role Phone Unavailable Primary Care Provider Unavailabl e Encounter Details Date Type Department Care Team (Late st Contact Info) Description 01/04/2022 Transcribed Document [facility] [place] Family Medicine [address] [place] [address] ProviderCarlos MD [facility] [place], [place] [id number] Social History Tobacco Use Types Packs/Day Years [...] when ZAHRA resolved. Ana Tabor Hospitalist pager- [phone] documented in this encounter Plan of Treatment Not on file documented as of this encounter Visit Diagnoses Not on filedocumented in this encounter
--- OUTSIDE RECORDS SUMMARY | 2025-04-15 13:22 | XMS_ITS | Encounter Summary ---
Author Organization [employer] [facility] Address [address] [facility] [place] [address] Care Team Providers Care Experimental Technician Name Role Phone Unavailable Primary Care Provider Unavailabl e Encounter Details Date Type Department Care Team (Late st Contact Info) Description 01/03/2022 Transcribed Document [facility] [place] [address] [place] [address] ProviderCarlos MD [facility] [place], [place] [address] Social History Tobacco Use Types Packs/Day Years [...] [facility] l[facility] [...] in accordance with the flexibilities announced by [facility] limited examination is performed. General: Well appearing, [...] # 0.72 x10(3)/uL (Low) 01/03/2022 21:48 EDT [place] % 8.9 % 01/03/2022 21:48 EDT [place] # 0.73 K/uL 01/03/2022 21:48 EDT Eos [...]
--- OUTSIDE RECORDS SUMMARY | 2025-04-15 13:22 | XMS_ITS | Encounter Summary ---
Author Organization [employer] Address [address] [place] [address] Care Team Providers Care Pt Sitter Name Role Phone Unavailable Primary Care Provider Unavailabl e Encounter Details Date Type Department Care Team (Late st Contact Info) Description 01/08/2022 Transcribed Document [facility] [place] Family Medicine [facility] [place] [address] ProviderCarlos MD [facility] [place], [place] [address] Social History Tobacco Use Types Packs/Day Years [...] On: 01/08/2022 14:04 EDT by Angelique Joyce, [employer] Primary Insurance Authorization Authorization and Policy Numbers : Insurance 1 Health Plan: [place] [employer] Policy Number: [id number] Authorization Number: Insurance Primary Name : [place] [employer] - Policy Number: [id number] Authorization Status-Primary : Drg approved Auth/Referral Contact Name-Primary : DC Reference Number-Primary : [id number] Authorization Number-Primary : [id number] Number of Days Authorized-Primary : 5 Day(s) Authorized Service Begin Date-Primary : 01/03/2022 EDT Authorized Service End Date-Primary : 01/08/2022 EDT Authorization Comments-Primary : Discharge summary faxed. Historical Authorization Comments-Primary : Comment 1: Authorized per fax 01/08/22 @ 1237. Approved DRG inpatient length of stay 01/03 - 01/09. (Angelique Joyce, [employer] 01/08/2022 14:03) Comment 2: Clinicals faxed via [employer] for IP approval (ISAIAS NAVARRO RN 01/07/2022 12:21) Comment 3: AUTH SUBMITTED VIA [facility] [facility] ATTACHED (Olive Dolan RN 01/04/2022 15:27) Angelique Joyce, [employer] - 01/08/2022 14:04 EDT documented in this encounter Plan of Treatment Not on file documented as of this encounter Visit Diagnoses Not on filedocumented in this encounter
--- OUTSIDE RECORDS SUMMARY | 2025-04-15 13:22 | XMS_ITS | Encounter Summary ---
Author Organization [employer] Address [address] [place] [address] Care Team Providers Care Credit Specialist Name Role Phone Unavailable Primary Care Provider Unavailabl e Encounter Details Date Type Department Care Team (Late st Contact Info) Description 01/06/2022 Transcribed Document [facility] [place] Family Medicine [address] [place] [address] ProviderCarlos MD [facility] [place], [place] [address] Social History Tobacco Use Types Packs/Day Years [...] Medical At risk for violence / IMO [id number] / Confirmed History of obstructive sleep apnea / IMO [id number] / Confirmed, Active Problems (8) At risk [...]
--- NOTE | 2025-04-15 14:18 | CT_ITS ---
PROCEDURE INFORMATION: Exam: CT Maxillofacial With Contrast, Sinus Exam date and time: 04/15/2025 3:24 PM Age: 69 years old Clinical indication: Other: Refractory sinusitis x 3 weeks TECHNIQUE: Imaging protocol: CT Maxillofacial with intravenous contrast. Focus on the sinuses. Radiation optimization: All CT scans at this facility use at least one of these dose optimization techniques: automated exposure control; mA and/or kV adjustment per patient size (includes targeted exams where dose is matched to clinical indication); or iterative reconstruction. Contrast material: ISOVUE; Contrast volume: 75 ml; Contrast route: IV; COMPARISON: CT HEAD/BRAIN WO CON 04/15/2025 3:21 PM FINDINGS: Frontal sinuses: No mucosal thickening. No air-fluid levels. Ethmoid sinuses: Mild mucosal No air-fluid levels. Sphenoid sinuses: Mild mucosal thickening. No air-fluid levels. Maxillary sinuses: Mild mucosal thickening. No air-fluid levels. Ostiomeatal units are patent. Nasal cavity: Unremarkable. Orbital cavities: Orbits are normal. Globes are unremarkable. Bones: Mild degenerative changes of the spine. Soft tissues: Unremarkable. Teeth: Multiple absent teeth. Vasculature: Atherosclerosis. IMPRESSION: Scattered mild mucosal thickening in the paranasal sinuses. No air-fluid levels.
--- NOTE | 2025-04-15 14:18 | CT_ITS ---
PROCEDURE INFORMATION: Exam: CT Head Without Contrast Exam date and time: 04/15/2025 3:21 PM Age: 69 years old Clinical indication: Pain; Headache; Additional info: PIÑA TECHNIQUE: Imaging protocol: Computed tomography of the head without contrast. Radiation optimization: All CT scans at this facility use at least one of these dose optimization techniques: automated exposure control; mA and/or kV adjustment per patient size (includes targeted exams where dose is matched to clinical indication); or iterative reconstruction. COMPARISON: MR ANGIO HEAD WO/W CON 04/25/2024 4:11 PM FINDINGS: Brain: Moderate brain volume loss. Moderate white matter changes typical of hypertension or chronic small vessel ischemia. Cerebral ventricles: No ventriculomegaly. Paranasal sinuses: Scattered mucosal thickening in the visualized paranasal sinuses. Mastoid air cells: Visualized mastoid air cells are well aerated. Bones: Unremarkable. No acute fracture. Soft tissues: Unremarkable. IMPRESSION: No acute findings.
--- OUTSIDE RECORDS SUMMARY | 2025-04-15 14:21 | XMS_ITS | CCD ---
Author Organization Unknown Care Team Providers Care Campus Coordinator Name Role Phone Unavailable Primary Care Provider Unavailabl e Unavailable Chronic Care Management Unavaila ble Summary Purpose DataExchange Insurance Providers Payer name Policy type / Coverage type Covered democrat ID Effective Begin Date Effective End Date [facility] [id number] Unknown Unknown Family History Family History data not found Medication Administered No Medication Administered data Reason For Visit No Reason For Visit data Medical Equipment No Medical Equipment data Advance Directives No Advance Directive data
--- OUTSIDE RECORDS SUMMARY | 2025-04-15 14:22 | XMS_ITS | CCD ---
Author Organization Unknown Care Team Providers Care Tableman Name Role Phone Unavailable Primary Care Provider Unavailabl e Unavailable Chronic Care Management Unavaila ble Summary Purpose [employer] Insurance Providers Payer name Policy type / Coverage type Covered constitution party ID Effective Begin Date Effective End Date [facility] [id number] Unknown Unknown Family History Family History data not found Medication Administered No Medication Administered data Reason For Visit No Reason For Visit data Medical Equipment No Medical Equipment data Advance Directives No Advance Directive data
--- NOTE | 2025-04-15 14:27 | ED_ITS ---
<Statement entered by Stacie Clifford MD - 04/18/25 16:03> Discharge Plan Disposition Patient Disposition: Home, Self-Care Prescriptions Prescriptions: No Action divalproex 125 mg capsule, delayed rel sprinkle 500 mg PO HS 90 Days Qty: 360 3RF ranolazine 1,000 mg tablet extended release 12 hr 1,000 mg PO BID 90 Days Qty: 180 3RF albuterol sulfate 90 mcg/actuation HFA aerosol inhaler 2 puff inhalation Q4-6H PRN (Reason: shortness of breath or wheezing) Qty: 18 5RF sulfamethoxazole-trimethoprim [Bactrim DS] 800-160 mg tablet 1 tab PO BID Qty: 20 0RF fluticasone propionate [Flonase Allergy Relief] 50 mcg/actuation spray,suspension 1 spray intranasal BID Qty: 16 3RF Rx Instructions: administer into each nostril azelastine 137 mcg (0.1 %) spray,non-aerosol 1 spray intranasal BID Qty: 30 2RF Rx Instructions: administer into each nostril for 1 week metformin 500 mg tablet 500 mg PO BID 90 Days Qty: 180 4RF lacosamide 150 mg tablet 150 mg PO BID 90 Days Qty: 180 4RF levocetirizine 5 mg tablet 5 mg PO DAILY Qty: 120 4RF atorvastatin 80 mg tablet 80 mg PO DAILY 90 Days Qty: 90 4RF cholecalciferol (vitamin D3) 25 mcg (1,000 unit) capsule 25 mcg PO DAILY 90 Days Qty: 90 4RF metoprolol succinate 50 mg tablet extended release 24 hr 50 mg PO DAILY 90 Days Qty: 90 4RF benzonatate 100 mg capsule 100 mg PO TID PRN (Reason: cough) Qty: 30 1RF hydrocodone-acetaminophen 7.5-325 mg tablet 1 tab PO QID PRN (Reason: pain) Qty: 120 0RF nitroglycerin 0.4 mg tablet, sublingual 0.4 mg sublingual NEEDED PRN (Reason: Chest Pain) Qty: 14 0RF aspirin 81 MG tablet,chewable 81 mg PO DAILY clopidogrel 75 mg tablet 75 mg PO DAILY quetiapine 50 mg tablet 50 mg PO HS PRN (Reason: Insomnia) isosorbide mononitrate 30 mg Tablet Extended Release 24 Hr 30 mg PO DAILY 30 Days Qty: 30 0RF Referrals Follow up/Referrals: Malcolm Dickerson MD [Primary Care Provider, Family Practice] - See instructions Jeronimo Gomez MD [Physician, Ear, Nose, Throat] - See instructions Activity Restrictions/Add. Instructions Additional Instructions/Restrictions: Follow-up with ENT (otolaryngology) for further evaluation. Also continue following with your family doctor to ensure resolution and improvement. Clinical Impressions Clinical Impression: Sinusitis, Headache Print Language Print Language: Georgian Discharge ED Provider: Brandon Brewer General Adult HPI <Stacie Clifford MD - Last Filed: 04/15/25 14:37> General Chief complaint: Upper Respiratory Infection Stated complaint: soa headache dizziness Time Seen by Provider: 04/15/25 14:11 Mode of Arrival: Ambulatory Description of Symptoms (Recalled from ER Triage Doc. by RN): c/o headache, nasal congestion causing soa, reports using vapor rub helps his soa, reports that this started 3 weeks. Seen his pcp but nothing has really helped. History of Present Illness HPI narrative: Patient is a 69-year-old male presenting today with 3 weeks of refractory nasal congestion frontal and maxillary sinusitis and severe headache. No neurologic symptoms no high fevers etc. Has seen his primary care doctor multiple times has been on multiple antibiotics steroids and decongestants. Was sent to the emergency department by his primary care doctor because he felt he needed a CT scan. He also has a referral to ENT coming up. Related Data Home Medications ?Medication ?Instructions ?Recorded ?Confirmed aspirin 81 mg chewable tablet 81 mg PO DAILY 03/11/19 04/13/25 clopidogrel 75 mg tablet 75 mg PO DAILY 03/19/2503/20 quetiapine 50 mg tablet 50 mg PO HS PRN Insomnia 11/1204/13/25 Previous Rx's ?Medication ?Instructions ?Recorded divalproex 125 mg capsule,delayed 500 mg (4 x 125 mg) PO HS History 09/22/24 release sprinkle of seizures, headache 90 day s #360 caps ranolazine 1,000 mg 1,000 mg PO BID 90 days #180 tabs 09/22/24 tablet,extended release,12 hr metformin 500 mg tablet 500 mg PO BID 90 days #180 t abs 10/17/24 lacosamide 150 mg tablet 150 mg PO BID 90 days #180 t abs 10/31/24 levocetirizine 5 mg tablet 5 mg PO DAILY #120 tabs atorvastatin 80 mg tablet 80 mg PO DAILY 90 days #90 t abs 01/17/25 cholecalciferol (vitamin D3) 25 25 mcg PO DAILY 90 day s #90 caps 01/25/25 mcg (1,000 unit) capsule fluticasone propionate 50 1 spray intranasal BID #16 g laney 02/02/25 mcg/actuation nasal spray,suspension (Flonase Allergy Relief) azelastine 137 mcg (0.1 %) nasal 1 spray intranasal BI D #30 mL 03/10/25 spray metoprolol succinate 50 mg 50 mg PO DAILY 90 days #90 tabs 03/14/25 tablet,extended release 24 hr isosorbide mononitrate 30 mg 30 mg PO DAILY 30 days #3 0 tabs 03/22/25 tablet,extended release 24 hr albuterol sulfate 90 mcg/actuation 2 puff inhalation Q 4-6H PRN 03/30/25 aerosol inhaler shortness of breath or wheez ing #18 grams benzonatate 100 mg capsule 100 mg PO TID PRN cough #30 caps 04/05/25 hydrocodone 7.5 mg-acetaminophen 1 tab PO QID PRN pain #120 tabs 04/06/25 325 mg tablet sulfamethoxazole 800 1 tab PO BID #20 tabs mg-trimethoprim 160 mg tablet (Bactrim DS) nitroglycerin 0.4 mg sublingual 0.4 mg sublingual N EEDED PRN 04/14/25 tablet Chest Pain #14 tabs Allergies Allergy/AdvReac Type Severity Reaction Status Date / Time No Known Allergies Allergy Verified 04/13/25 09:19 [facility] <Stacie Clifford MD - Last Filed: 04/15/25 14:37> [facility] Disclaimer: The information contained in this section may have been updated after the patient was seen, as this information can be updated by other users. Medical History (Updated 04/15/25 @ 14:20 by Stacie Clifford MD) Sinusitis Hyperkalemia Hyponatremia Chest pain Sinusitis, acute Daytime somnolence History of substance abuse History of alcohol abuse Anemia COVID-19 Thrombocytopenia Seizure BMI 31.0-31.9,adult Enceph/encephmye oth dis Fall CHF (congestive heart failure) Obesity (BMI 30-39.9) Cigarette smoker Diabetes SNHL (sensorineural hearing loss) Fluid level behind tympanic membrane of both ears Worsening headaches Hearing loss Poor balance Elevated serum creatinine Decreased GFR SOB (shortness of breath) on exertion Angina pectoris Elevated left ventricular end-diastolic pressure (LVEDP) Colon cancer screening Abnormal findings on diagnostic imaging of heart and coronary circulation Typical angina Diastolic dysfunction Encephalopathy chronic Major depressive disorder Lesion of brain Acute renal failure Chest pain Dyspnea Palpitations Sinus tachycardia Vitamin D deficiency Orthopnea COPD exacerbation Constipation Abdominal pain Near syncope Headache Lightheadedness SOB (shortness of breath) Other longterm (current) drug therapy Chest pain, atypical CAD (coronary artery disease) Acute exacerbation of chronic low back pain Carotid artery disease Hypertensive disorder Hyperlipidemia Coronary arteriosclerosis Surgical History History of cardiac catheterization Stented coronary artery Family History Other Coronary artery disease Diabetes Heart attack Hyperlipidemia Hypertension No significant family history Stroke Social History Smoking Status: Former smoker tobacco type: cigarettes packs per day: 1 years smoked: 40 how long ago did patient quit smokin years ago second hand exposure: No alcohol intake: former counseling provided: provider counseling substance use type: denies use current occupational status: retired Travel in the last 8 weeks?: None household members: significant other housing: house number of children: 3 current occupational exposures/hazards: No caffeine: Yes Have you lived/traveled outside US in past 30 days?: No Contact w/someone who lives/traveled outside US past 30 days?: No Exposure to someone with infectious disease in past 14 days?: No Do you have a fever (greater than 100.4 F or 38 C)?: No Have you tested positive for COVID-19?: No Exposed to someone with COVID-19 in past 14 days?: No Do you have a sore throat?: No Do you have a cough?: No Do you have any weakness?: No Do you have any diarrhea?: No Are you experiencing any unusual bleeding?: No Do you have any muscle aches/pain?: No Do you have any abdominal pain?: No Are you experiencing loss of taste or smell?: No Other Medical History Have you received the Flu Vaccine for this season: No Have you received the Pneumonia Vaccine: Yes <Barndon Brewer MD - Last Filed: 04/15/25 16:55> ROS Obtained: Yes All systems reviewed & no additional complaints except as documented Physical Exam <Stacie Clifford MD - Last Filed: 04/15/25 14:37> ENT ENT exam: Present other (Tenderness in the frontal and maxillary sinuses worse with leaning forward) Neurological Exam Neurological exam: Present alert, oriented X3, CN II-XII intact, normal gait and reflexes normal; Absent motor sensory deficit <Brandon Brewer MD - Last Filed: 04/15/25 16:55> General General appearance: alert and in no apparent distress Respiratory Respiratory exam: Absent respiratory distress Cardiovascular Cardiovascular exam: Present regular rate Medical Decision Making <Stacie Clifford MD - Last Filed: 04/15/25 14:37> Medical Records Screening: Per USPSTF and CDC recommendations, given the prevalence of disease in our region, it is our hospital?s policy to screen for HIV and viral Hepatitis for all patients aged 18 and over and those with ongoing risk factors. Vital Signs: 04/15/25 13:11 04/15/25 14:11 04/15/25 14:30 Temperature 98.0 F Temperature Source Oral Pulse Rate 66 63 Pulse Rate [Left Radial] 63 Respiratory Rate 18 Blood Pressure 132/79 136/84 Blood Pressure [Right Arm] 129/67 Blood Pressure Mean [Right Arm] 87 02 Sat by Pulse Oximetry 98 98 97 Oxygen Delivery Method Room Air Room Air Room Air 04/15/25 14:46 04/15/25 15:00 Temperature Temperature Source Pulse Rate 59 L 58 L Pulse Rate [Left Radial] Respiratory Rate Blood Pressure 115/71 120/68 Blood Pressure [Right Arm] Blood Pressure Mean [Right Arm] 02 Sat by Pulse Oximetry 98 97 Oxygen Delivery Method Room Air Room Air Lab Data Lab Results 04/15/25 14:44: WBC 6.0, RBC 4.33 L, Hgb 13.2 L, Hct 39.9 L, MCV 92.1, MCH 30.5, MCHC 33.1, RDW 15.0, Plt Count 259, MPV 9.7, Neut % (Auto) 52.3, Lymph % (Auto) 30.7, Gage % (Auto) 12.1 H, Eos % (Auto) 3.0, Baso % (Auto) 0.7, Neut # (Auto) 3.1, Lymph # (Auto) 1.8, Gage # (Auto) 0.7, Eos # (Auto) 0.2, Baso # (Auto) 0.0, Sodium 135 L, Potassium 5.1, Chloride 97 L, Carbon Dioxide 27, Anion Gap 16.1 H, BUN 15, Creatinine 1.10, Estimated Creat Clear 76, Estimated GFR 66, Est GFR ( Amer) 80, Glucose 98, Calcium 10.3 H, Total Bilirubin 0.4, AST 24, ALT 15, Alkaline Phosphatase 43, Total Protein 8.0, Albumin 4.5, Globulin 3.5 H, Albumin/Globulin Ratio 1.3 04/15/25 14:44 04/15/25 14:44 Orders (Tests/Meds): ED MEDICATIONS Discontinued Medications Generic Name Dose Route Start Last Admin Trade Name Freq PRN Reason Stop Dose Admin Diphenhydramine HCl 12.5 mg 04/15/25 14:18 04/15/25 14:53 Diphenhydramine 50mg/Ml Vial IV 04/15/25 14:19 12.5 mg ONCE ONE Administration Sodium Chloride 500 mls @ 999 mls/hr 04/15/25 14:18 04/15/25 14:54 Sod Chlor 0.9% 1000ml Bag IV 04/15/25 14:48 999 mls/hr .Q31M ONE Administration Iopamidol 75 ml 04/15/25 15:20 04/15/25 15:21 Iopamidol-370 (76%);100ml Bottle IV 04/15/25 15:21 75 ml ONCE ONE Administration Ketorolac Tromethamine 15 mg 04/15/25 14:18 04/15/25 14:53 Ketorolac 30mg/Ml Vial IV 04/15/25 14:19 15 mg ONCE ONE Administration Prochlorperazine Edisylate 5 mg 04/15/25 14:18 04/15/25 14:53 Prochlorperazine 10mg/2ml Vial IV 04/15/25 14:19 5 mg ONCE ONE Administration Sodium Chloride 10 ml 04/15/25 15:20 04/15/25 15:21 Sodium Chloride 0.9% 10ml Syr (Rad Only) IV 04/15/25 15:21 10 ml ONCE ONE Administration ORDERS Category Date Time Status CT head/brain wo con Stat Cat Scan 04/15/25 14:[address] sinus w con Stat Cat Scan 04/15/25 14:18 Completed CBC w/Auto Diff [Complete Blood Count Auto Diff] Stat Lab 04/15/25 14:44 Completed CMP [Comprehensive Metabolic Panel] Stat Lab 04/15/25 14:44 Completed Medical Decision Narrative: Patient with above history and physical. Will get a CT scan to confirm the diagnosis see if he has refractory or significant sinusitis and/or extension through the bones into the brain etc. Also will treat his headache. It seems as if he has had appropriate outpatient care at this point. Will entertain putting him in the hospital on IV antibiotics potentially where there is ENT coverage in consultation if his CT scan confirms the diagnosis and does not give us an alternative diagnosis. <Brandon Brewer MD - Last Filed: 04/15/25 16:55> Taco Inquiry Pt receiving controlled substance: No Vital Signs: 04/15/25 13:11 04/15/25 14:11 04/15/25 14:30 Temperature 98.0 F Temperature Source Oral Pulse Rate 66 63 Pulse Rate [Left Radial] 63 Respiratory Rate 18 Blood Pressure 132/79 136/84 Blood Pressure [Right Arm] 129/67 Blood Pressure Mean [Right Arm] 87 02 Sat by Pulse Oximetry 98 98 97 Oxygen Delivery Method Room Air Room Air Room Air 04/15/25 14:46 04/15/25 15:00 Temperature Temperature Source Pulse Rate 59 L 58 L Pulse Rate [Left Radial] Respiratory Rate Blood Pressure 115/71 120/68 Blood Pressure [Right Arm] Blood Pressure Mean [Right Arm] 02 Sat by Pulse Oximetry 98 97 Oxygen Delivery Method Room Air Room Air Lab Data Lab Results 04/15/25 14:44: WBC 6.0, RBC 4.33 L, Hgb 13.2 L, Hct 39.9 L, MCV 92.1, MCH 30.5, MCHC 33.1, RDW 15.0, Plt Count 259, MPV 9.7, Neut % (Auto) 52.3, Lymph % (Auto) 30.7, Gage % (Auto) 12.1 H, Eos % (Auto) 3.0, Baso % (Auto) 0.7, Neut # (Auto) 3.1, Lymph # (Auto) 1.8, Gage # (Auto) 0.7, Eos # (Auto) 0.2, Baso # (Auto) 0.0, Sodium 135 L, Potassium 5.1, Chloride 97 L, Carbon Dioxide 27, Anion Gap 16.1 H, BUN 15, Creatinine 1.10, Estimated Creat Clear 76, Estimated GFR 66, Est GFR ( Amer) 80, Glucose 98, Calcium 10.3 H, Total Bilirubin 0.4, AST 24, ALT 15, Alkaline Phosphatase 43, Total Protein 8.0, Albumin 4.5, Globulin 3.5 H, Albumin/Globulin Ratio 1.3 Orders (Tests/Meds): ED MEDICATIONS Discontinued Medications Generic Name Dose Route Start Last Admin Trade Name Freq PRN Reason Stop Dose Admin Diphenhydramine HCl 12.5 mg 04/15/25 14:18 04/15/25 14:53 Diphenhydramine 50mg/Ml Vial IV 04/15/25 14:19 12.5 mg ONCE ONE Administration Sodium Chloride 500 mls @ 999 mls/hr 04/15/25 14:18 04/15/25 14:54 Sod Chlor 0.9% 1000ml Bag IV 04/15/25 14:48 999 mls/hr .Q31M ONE Administration Iopamidol 75 ml 04/15/25 15:20 04/15/25 15:21 Iopamidol-370 (76%);100ml Bottle IV 04/15/25 15:21 75 ml ONCE ONE Administration Ketorolac Tromethamine 15 mg 04/15/25 14:18 04/15/25 14:53 Ketorolac 30mg/Ml Vial IV 04/15/25 14:19 15 mg ONCE ONE Administration Prochlorperazine Edisylate 5 mg 04/15/25 14:18 04/15/25 14:53 Prochlorperazine 10mg/2ml Vial IV 04/15/25 14:19 5 mg ONCE ONE Administration Sodium Chloride 10 ml 04/15/25 15:20 04/15/25 15:21 Sodium Chloride 0.9% 10ml Syr (Rad Only) IV 04/15/25 15:21 10 ml ONCE ONE Administration ORDERS Category Date Time Status CT head/brain wo con Stat Cat Scan 04/15/25 14:[address] sinus w con Stat Cat Scan 04/15/25 14:18 Completed CBC w/Auto Diff [Complete Blood Count Auto Diff] Stat Lab 04/15/25 14:44 Completed CMP [Comprehensive Metabolic Panel] Stat Lab 04/15/25 14:44 Completed Medical Decision Narrative: Patient with above history and physical. Will get a CT scan to confirm the diagnosis see if he has refractory or significant sinusitis and/or extension through the bones into the brain etc. Also will treat his headache. It seems as if he has had appropriate outpatient care at this point. Will entertain putting him in the hospital on IV antibiotics potentially where there is ENT coverage in consultation if his CT scan confirms the diagnosis and does not give us an alternative diagnosis. Osman: I assumed primary responsibility for this patient after signout from previous physician. Independent interpretation of workup with nonactionable hematologic findings. CTs without any acute actionable findings either. On reevaluation, patient still resting at baseline. He is reassured by the findings, but still remains baseline symptomatic. Recommended he follow-up with ENT and family physician. Because patient at baseline without signs or symptoms of clinical decompensation, deemed appropriate for discharge. Results were relayed to patient who voiced understanding and were agreeable to outpatient management and follow up. I discussed my clinical impression with patient and answered all questions. At this time, the evidence for any other entities in the differential is insufficient to warrant any further testing or ED observation. This was explained as well. Advisory was given that persistent or worsening symptoms require further evaluation. I confirmed the understanding of this discussion. Critical Care <Brandon Brewer MD - Last Filed: 04/15/25 16:55> Critical Care Time Critical Care Time: No
[2025-04-15] MEDS: PROCHLORPERAZINE 10MG/2ML VIAL 5 MG IV (14:53)
[2025-04-15] MEDS: diphenhydrAMINE 50MG/ML VIAL 12.5 MG IV (14:53)
[2025-04-15] MEDS: KETOROLAC 30MG/ML VIAL 15 MG IV (14:53)
[2025-04-15] MEDS: 0.9 % SODIUM CHLORIDE 1000ML 500 ML 999 ML IV (14:54)
[2025-04-15 14:55] LABS: Basophils % 0.7 % (0.1-2.0); Eosinophils # 0.2 Kmm3 (0.0-0.4); Hematocrit 39.9 % (42.0-52.0); Hemoglobin 13.2 g/dL (14.1-18.0); Immature Granulocytes # 0.07 10^3uL; Immature Granulocytes % 1.2 %; Lymphocytes # 1.8 K/mm3 (0.7-4.5); Lymphocytes % 30.7 % (10-50); Mean Corpuscular HGB Conc 33.1 g/dL (31.8-35.4); Mean Corpuscular Hemoglobin 30.5 pg (27.0-31.2); Mean Corpuscular Volume 92.1 fl (80-94); Mean Platelet Volume 9.7 fl (7.4-10.4); Monocytes # 0.7 K/mm3 (0.1-1.0); Monocytes % 12.1 % (1.7-9.3); Neutrophils # 3.1 K/mm3 (1.8-7.8); Neutrophils % 52.3 % (37.0-80.0); Nucleated Red Blood Cells # 0 10^3/uL; Nucleated Red Blood Cells % 0 %; Platelet Count 259 K/mm3 (142-424); Red Blood Count 4.33 M/mm3 (4.60-6.20)
[2025-04-15 15:05] LABS: Alanine Aminotransferase 15 U/L (12-78); Albumin Level 4.5 g/dl (3.5-5.0); Albumin/Globulin Ratio 1.3 (1.1-1.8); Alkaline Phosphatase 43 U/L (38-126); Anion Gap 16.1 mEq/L (5-15); Aspartate Amino Transferase 24 U/L (17-59); Bilirubin,Total 0.4 mg/dl (0.2-1.3); Blood Urea Nitrogen 15 mg/dl (9-20); Calcium 10.3 mg/dl (8.4-10.2); Carbon Dioxide 27 mmol/L (22.0-30.0); Chloride 97 mmol/L (98-107); Creatinine Clearance Estimated 76 mL/min (50-200); Estimated Glomerular Filt Rate 66 ml/min (>60); GFR (African American) 80 ML/MIN (>60); Globulin 3.5 g/dL (1.3-3.2); Glucose 98 mg/dl (74-100); Potassium 5.1 mmoL/L (3.5-5.1); Sodium 135 mmol/L (136-145)
[2025-04-15] MEDS: SODIUM CHLORIDE 0.9% 10ML SYR (RAD ONLY) 10 ML IV (15:21)
[2025-04-15] MEDS: IOPAMIDOL-370 (76%);100ML BOTTLE 75 ML IV (15:21)
--- OUTSIDE RECORDS SUMMARY | 2025-05-25 20:00 | XMS_ITS | Clinical Summary ---
Author Organization Unknown Care Team Providers Care Electrical Panel Builder Name Role Phone OBINNA GAGE, MUSA Unavailable Unavailable KARI PT, WILFREDO Unavailable Unavailable BILLIE BED MANAGER, JESSICA Unavailable Unavailable SAPPHIRE OT, MICA Unavailable Unavailable Payers Payer Name Policy Type Policy Number Effective Date Expira tion Date [employer]OP[place]UTH [id number] Problems Condition Name Condition Details Condition Category Status Onset Date Resolution Date Last Treatment Date Treating Clinician Comments HYPO-OSMOLAL ITY AND HYPONATREMIA Active 03-19 00:00: 00 ALZHEIMER'S DISEASE WITH LATE ONSET Active 10-19 00:00: 00 DEM IN OTH DIS CLASSD ELSWHR, UNSP SEV, WITH OTH BEH DISTRB Active 10-19 00:00: 00 OTHER CHRONIC PAIN Active 10-19 00:00: 00 PRECORDIAL PAIN Active 03-19 00:00: 00 LUMBAGO WITH SCIATICA, UNSPECIFIED SIDE Active 10-19 00:00: 00 HEADACHE, UNSPECIFIED Active 10-19 00:00: 00 TYPE 2 DIABETES MELLITUS WITHOUT COMPLICATION S Active 10-19 00:00: 00 CHRONIC OBSTRUCTIVE PULMONARY DISEASE, UNSPECIFIED Active 10-19 00:00: 00 ESSENTIAL (PRIMARY) HYPERTENSION Active 10-19 00:00: 00 ATHSCL HEART DISEASE OF [place] CORONARY ARTERY W/O ANG PCTRS Active 10-19 00:00: 00 HYPERLIPIDEM IA, UNSPECIFIED Active 10-19 00:00: 00 DIZZINESS AND GIDDINESS Active 10-19 00:00: 00 UNSPECIFIED SENSORINEURA L HEARING LOSS Active 10-19 00:00: 00 DEPRESSION, UNSPECIFIED Active 10-19 00:00: 00 DISORDER OF BRAIN, UNSPECIFIED Active 10-19 00:00: 00 PERSONAL HISTORY OF NICOTINE DEPENDENCE Active 10-19 00:00: 00 PRESENCE OF CORONARY ANGIOPLASTY IMPLANT AND GRAFT Active 10-19 00:00: 00 Allergies, Adverse Reactions, Alerts Allergy Name Allergy Type Status Severity Reaction(s) Onset Date Inactive Date Treating Clinician Comments NO KNOWN ALLERGIES Propensity to adverse reactions Active 03-28 10:00: 25 Medications Ordered Medication Name Filled Medication Name Start Date Stop Date Current Medication? Ordering Clinician Indication Dosage Frequency Signature (SIG) Comments Components aspirin 81 mg tablet,yadira yed release 03-28 00:00: 00 Yes [id number] HEART 1 tablet DAILY 1 tablet DAILY (route: oral) Med Classific ation: Hematolog ical Agents atorvastati n 80 mg tablet 03-28 00:00: 00 Yes [id number] CHOLESTEROL 1 tablet DAILY 1 tablet DAILY (route: oral) Med Classific ation: Cardiovas cular Therapy Agents clopidogrel 75 mg tablet 03-28 00:00: 00 Yes [id number] BLOOD THINNER 1 tablet DAILY 1 tablet DAILY (route: oral) Med Classific ation: Hematolog ical Agents divalproex 125 mg tablet,yadira yed release 03-28 00:00: 00 Yes [id number] SEIZURE 4 tablet DAILY 4 tablet DAILY (route: oral) Med Classific ation: Central Nervous System Agents fluticasone propionate 50 mcg/actuati on nasal spray,suspe nsion 03-28 00:00: 00 Yes [id number] ALLERGIES 1 spray 2 TIMES DAILY 1 spray 2 TIMES DAILY (route: nasal) Med Classific ation: Respirato ry Therapy Agents hydrocodone 7.5 mg-acetamin ophen 325 mg tablet 03-28 00:00: 00 Yes [id number] PAIN 1 tablet 4 TIMES DAILY 1 tablet 4 TIMES DAILY (route: oral) Med Classific ation: Analgesic , Anti-infl ammatory or Antipyret ic isosorbide mononitrate ER 30 mg tablet,exte nded release 24 hr 03-28 00:00: 00 Yes [id number] HEART 1 tablet DAILY 1 tablet DAILY (route: oral) Med Classific ation: Cardiovas cular Therapy Agents lacosamide 150 mg tablet 03-28 00:00: 00 Yes [id number] SEIZURES 1 tablet 2 TIMES DAILY 1 tablet 2 TIMES DAILY (route: oral) Med Classific ation: Central Nervous System Agents levocetiriz ine 5 mg tablet 03-28 00:00: 00 Yes [id number] ALLERGIES 1 tablet DAILY 1 tablet DAILY (route: oral) Med Classific ation: Respirato ry Therapy Agents meclizine 25 mg chewable tablet 03-28 00:00: 00 Yes [id number] DIZZINESS 2 tablet 2 TIMES DAILY 2 tablet 2 TIMES DAILY (route: oral) Med Classific ation: Gastroint estinal Therapy Agents metformin 500 mg tablet 03-28 00:00: 00 Yes [id number] DIABETES 1 tablet 2 TIMES DAILY 1 tablet 2 TIMES DAILY (route: oral) Med Classific ation: Endocrine metoprolol succinate ER 50 mg tablet,exte nded release 24 hr 03-28 00:00: 00 Yes [id number] BLOOD PRESSURE, HR 1 tablet DAILY 1 tablet DAILY (route: oral) Med Classific ation: Cardiovas cular Therapy Agents nitroglycer in 0.4 mg sublingual tablet 03-28 00:00: 00 Yes [id number] CHEST PAIN 1 tablet NEEDED 1 tablet NEEDED (route: sublingual ) Med Classific ation: Cardiovas cular Therapy Agents potassium chloride ER 10 mEq tablet,exte nded release 03-28 00:00: 00 Yes [id number] SUPPLEMENT 1 tablet DAILY 1 tablet DAILY (route: oral) Med Classific ation: Electroly te Balance-N utritiona l Products quetiapine 50 mg tablet 03-28 00:00: 00 Yes [id number] SLEEP 1 tablet BEDTIME 1 tablet BEDTIME (route: oral) Med Classific ation: Central Nervous System Agents ranolazine ER 1,000 mg tablet,exte nded release,12 hr 03-28 00:00: 00 Yes [id number] CHEST PAIN 1 tablet 2 TIMES DAILY 1 tablet 2 TIMES DAILY (route: oral) Med Classific ation: Cardiovas cular Therapy Agents Vitamin D3 25 mcg (1,000 unit) capsule 2025-0 6-10 00:00: 00 Yes [id number] SUPPLEMENT 1 capsule DAILY 1 capsule DAILY (route: oral) Med Classific ation: Electroly te Balance-N utritiona l Products Vital Signs Vital Name Observation Time Observation Value Commen ts Temperature 2025-04-14 13:50:00.000 97.8 [degF] Temperature 2025-04-04 14:15:00.000 98.2 [degF] Temperature 2025-03-28 10:42:00.000 97.6 [degF] BMI (%) 2025-03-28 10:42:00.000 29 kg/m2 Height 2025-03-28 10:42:00.000 68 [in_us] Pulse 2025-04-14 13:50:00.000 60 /min Pulse 2025-04-04 14:15:00.000 77 /min Pulse 2025-03-28 10:42:00.000 68 /min O2 Saturation (%) 2025-04-04 14:16:00.000 97 % O2 Saturation (%) 2025-03-28 10:42:00.000 96 % Respirations 2025-04-14 13:50:00.000 18 /min Respirations 2025-04-04 14:15:00.000 18 /min Respirations 2025-03-28 10:42:00.000 18 /min Weight (lbs) 2025-03-28 10:42:00.000 192 [lb_av] Systolic Blood Pressure 2025-04-14 13:50:00.000 110 mm [Hg] Systolic Blood Pressure 2025-04-04 14:15:00.000 118 mm [Hg] Systolic Blood Pressure 2025-03-28 10:42:00.000 114 mm [Hg] Diastolic Blood Pressure 2025-04-14 13:50:00.000 72 mm [Hg] Diastolic Blood Pressure 2025-04-04 14:15:00.000 64 mm [Hg] Diastolic Blood Pressure 2025-03-28 10:42:00.000 68 mm [Hg] Plan of Treatment Planned Activity Planned Date Details Comments Future Scheduled Test RN TO OBSE RVE, ASSESS, EVALUATE, AND DEVELOP AN INDIVIDUALIZED PLAN OF CARE. AGENCY MAY ACCEPT ORDERS FROM CONSULTING PHYSICIANS PCP RN TO OBSERVE AND ASSESS, MOTTLER MACHINE FEEDER/YOUTH ASSOCIATE TO OBSERVE FOR RISK FOR FALLS AND INSTRUCT IN FALL PREVENTION, HOME SAFETY, MEDICATION MANAGEMENT, INFECTION PREVENTION, AND NUTRITION MANAGEMENT. RN/MOTTLER MACHINE FEEDER/YOUTH ASSOCIATE NURSE MAY PERFORM O2 SATURATION LEVEL ON ADMISSION AND PRN FOR SOB FOR RN TO ASSESS/MOTTLER MACHINE FEEDER TO OBSERVE PATIENT, WITH NOTIFICATION TO THE PHYSICIAN IF SATURATION IS 90% IN THE ABSENCE OF MORE SPECIFIC PARAMETERS FROM THE PHYSICIAN. AGENCY MAY PERFORM A RESUMPTION OF CARE VISIT FOLLOWING ANY HOSPITAL ADMISSION. RN/MOTTLER MACHINE FEEDER/YOUTH ASSOCIATE TO MONITOR CO-MORBID CONDITIONS LISTED ON THE PLAN OF CARE AND ANY NEW CONDITIONS THAT PRESENT THEMSELVES DURING THIS EPISODE TO IDENTIFY CHANGES AND INTERVENE TO MINIMIZE COMPLICATIONS. [code = RN TO OBSERVE, ASSESS, EVALUATE, AND DEVELOP AN INDIVIDUALIZED PLAN OF CARE. AGENCY MAY ACCEPT ORDERS FROM CONSULTING PHYSICIANS PCP RN TO OBSERVE AND ASSESS, MOTTLER MACHINE FEEDER/YOUTH ASSOCIATE TO OBSERVE FOR RISK FOR FALLS AND INSTRUCT IN FALL PREVENTION, HOME SAFETY, MEDICATION MANAGEMENT, INFECTION PREVENTION, AND NUTRITION MANAGEMENT. RN/MOTTLER MACHINE FEEDER/YOUTH ASSOCIATE NURSE MAY PERFORM O2 SATURATION LEVEL ON ADMISSION AND PRN FOR SOB FOR RN TO ASSESS/MOTTLER MACHINE FEEDER TO OBSERVE PATIENT, WITH NOTIFICATION TO THE PHYSICIAN IF SATURATION IS 90% IN THE ABSENCE OF MORE SPECIFIC PARAMETERS FROM THE PHYSICIAN. AGENCY MAY PERFORM A RESUMPTION OF CARE VISIT FOLLOWING ANY HOSPITAL ADMISSION. RN/MOTTLER MACHINE FEEDER/YOUTH ASSOCIATE TO MONITOR CO-MORBID CONDITIONS LISTED ON THE PLAN OF CARE AND ANY NEW CONDITIONS THAT PRESENT THEMSELVES DURING THIS EPISODE TO IDENTIFY CHANGES AND INTERVENE TO MINIMIZE COMPLICATIONS.] Future Scheduled Test MEDICATION MANAGEMENT; RN/MOTTLER MACHINE FEEDER/YOUTH ASSOCIATE TO REVIEW MEDICATIONS FOR INTERACTIONS, EFFECTIVENESS OF DRUG THERAPY, AND SIGNS/SYMPTOMS OF ADVERSE REACTIONS. MAY INSTRUCT AND REINFORCE MEDICATION TEACHING RELATED TO THE USE OF MEDICATIONS, DOSAGE, FREQUENCY, PURPOSE, SIDE EFFECTS, AND TO REPORT COMPLICATIONS. [code = MEDICATION MANAGEMENT; RN/MOTTLER MACHINE FEEDER/YOUTH ASSOCIATE TO REVIEW MEDICATIONS FOR INTERACTIONS, EFFECTIVENESS OF DRUG THERAPY, AND SIGNS/SYMPTOMS OF ADVERSE REACTIONS. MAY INSTRUCT AND REINFORCE MEDICATION TEACHING RELATED TO THE USE OF MEDICATIONS, DOSAGE, FREQUENCY, PURPOSE, SIDE EFFECTS, AND TO REPORT COMPLICATIONS.] Future Scheduled Test CARDIOVASC ULAR SYSTEM; RN TO ASSESS/TEACH, MOTTLER MACHINE FEEDER/YOUTH ASSOCIATE TO OBSERVE/TEACH RELATED TO ALTERED CARDIOVASCULAR STATUS TO MINIMIZE COMPLICATIONS AND REDUCE HOSPITALIZATION. [code = CARDIOVASCULAR SYSTEM; RN TO ASSESS/TEACH, MOTTLER MACHINE FEEDER/YOUTH ASSOCIATE TO OBSERVE/TEACH RELATED TO ALTERED CARDIOVASCULAR STATUS TO MINIMIZE COMPLICATIONS AND REDUCE HOSPITALIZATION.] Future Scheduled Test ANGINA MAN AGEMENT; RN TO ASSESS AND TEACH, MOTTLER MACHINE FEEDER/YOUTH ASSOCIATE TO OBSERVE AND TEACH WARNING SIGNS AND SYMPTOMS TO AVOID HOSPITALIZATION. [code = ANGINA MANAGEMENT; RN TO ASSESS AND TEACH, MOTTLER MACHINE FEEDER/YOUTH ASSOCIATE TO OBSERVE AND TEACH WARNING SIGNS AND SYMPTOMS TO AVOID HOSPITALIZATION.] Future Scheduled Test RESPIRATOR Y SYSTEM MANAGEMENT; RN TO ASSESS AND TEACH, MOTTLER MACHINE FEEDER/YOUTH ASSOCIATE TO OBSERVE AND TEACH RELATED TO ALTERED RESPIRATORY STATUS TO MINIMIZE COMPLICATIONS AND REDUCE HOSPITALIZATION. [code = RESPIRATORY SYSTEM MANAGEMENT; RN TO ASSESS AND TEACH, MOTTLER MACHINE FEEDER/YOUTH ASSOCIATE TO OBSERVE AND TEACH RELATED TO ALTERED RESPIRATORY STATUS TO MINIMIZE COMPLICATIONS AND REDUCE HOSPITALIZATION.] Future Scheduled Test COPD MANAG EMENT; RN TO ASSESS AND TEACH, MOTTLER MACHINE FEEDER/YOUTH ASSOCIATE TO OBSERVE AND TEACH SIGNS/SYMPTOMS OF COPD EXACERBATION AND PROVIDE EARLY INTERVENTIONS TO MINIMIZE RISK OF HOSPITALIZATION. RN/MOTTLER MACHINE FEEDER/YOUTH ASSOCIATE TO INSTRUCT ON SELF-CARE MANAGEMENT INCLUDING BREATHING TECHNIQUES, AIRWAY CLEARANCE, AND PROPER USE OF COPD MEDICATIONS. RN TO ASSESS AND TEACH, MOTTLER MACHINE FEEDER/YOUTH ASSOCIATE TO OBSERVE AND TEACH PATIENT/CAREGIVER ABILITY TO MONITOR AND RECORD VITAL SIGNS INCLUDING PULSE OXIMETRY AND BLOOD PRESSURE. PULSE OXIMETER AND BP MONITOR TO BE PROVIDED IF NEEDED [code = COPD MANAGEMENT; RN TO ASSESS AND TEACH, MOTTLER MACHINE FEEDER/YOUTH ASSOCIATE TO OBSERVE AND TEACH SIGNS/SYMPTOMS OF COPD EXACERBATION AND PROVIDE EARLY INTERVENTIONS TO MINIMIZE RISK OF HOSPITALIZATION. RN/MOTTLER MACHINE FEEDER/YOUTH ASSOCIATE TO INSTRUCT ON SELF-CARE MANAGEMENT INCLUDING BREATHING TECHNIQUES, AIRWAY CLEARANCE, AND PROPER USE OF COPD MEDICATIONS. RN TO ASSESS AND TEACH, MOTTLER MACHINE FEEDER/YOUTH ASSOCIATE TO OBSERVE AND TEACH PATIENT/CAREGIVER ABILITY TO MONITOR AND RECORD VITAL SIGNS INCLUDING PULSE OXIMETRY AND BLOOD PRESSURE. PULSE OXIMETER AND BP MONITOR TO BE PROVIDED IF NEEDED ] Future Scheduled Test SKIN INTEG RITY RN TO ASSESS AND TEACH, MOTTLER MACHINE FEEDER/YOUTH ASSOCIATE TO OBSERVE AND TEACH INTEGUMENTARY STATUS TO IDENTIFY CHANGES AND INTERVENE TO MINIMIZE COMPLICATIONS. PROVIDE SKILLED TEACHING OF GENERAL WOUND AND SKIN CARE AND PREVENTION RELATED TO POTENTIAL FOR OR ACTUAL ALTERED SKIN INTEGRITY [code = SKIN INTEGRITY RN TO ASSESS AND TEACH, MOTTLER MACHINE FEEDER/YOUTH ASSOCIATE TO OBSERVE AND TEACH INTEGUMENTARY STATUS TO IDENTIFY CHANGES AND INTERVENE TO MINIMIZE COMPLICATIONS. PROVIDE SKILLED TEACHING OF GENERAL WOUND AND SKIN CARE AND PREVENTION RELATED TO POTENTIAL FOR OR ACTUAL ALTERED SKIN INTEGRITY ] Future Scheduled Test PAIN MANAG EMENT; RN TO ASSESS AND TEACH, YOUTH ASSOCIATE/MOTTLER MACHINE FEEDER TO OBSERVE AND TEACH AND PROVIDE EDUCATION ON PAIN MANAGEMENT TECHNIQUES. [code = PAIN MANAGEMENT; RN TO ASSESS AND TEACH, YOUTH ASSOCIATE/MOTTLER MACHINE FEEDER TO OBSERVE AND TEACH AND PROVIDE EDUCATION ON PAIN MANAGEMENT TECHNIQUES.] Future Scheduled Test FALL REDUC TION MANAGEMENT; RN TO ASSESS AND OBSERVE, MOTTLER MACHINE FEEDER/YOUTH ASSOCIATE TO OBSERVE FALL RISK FACTORS AND EDUCATE PATIENT/CAREGIVER ON STRATEGIES TO MINIMIZE THE RISK OF FALLING. [code = FALL REDUCTION MANAGEMENT; RN TO ASSESS AND OBSERVE, MOTTLER MACHINE FEEDER/YOUTH ASSOCIATE TO OBSERVE FALL RISK FACTORS AND EDUCATE PATIENT/CAREGIVER ON STRATEGIES TO MINIMIZE THE RISK OF FALLING.] Future Scheduled Test PHYSICAL T HERAPIST TO EVALUATE FOR STRENGTH TRAINING [code = PHYSICAL THERAPIST TO EVALUATE FOR STRENGTH TRAINING] Future Scheduled Test OCCUPATION AL THERAPIST TO EVALUATE FOR STRENGTH TRAINING [code = OCCUPATIONAL THERAPIST TO EVALUATE FOR STRENGTH TRAINING] Goal Patient Goal - GET STRONGER Goal Provider Goal - A PLAN OF CARE WILL BE ESTABLISHED THAT MEETS THE PATIENTS NEEDS. PATIENT WILL DEMONSTRATE OXYGEN SATURATION WITHIN NORMAL LIMITS OR PATIENTS OPTIMAL LEVEL ESTABLISHED BY THE PHYSICIAN THROUGHOUT CARE. CHANGES TO CO-MORBID CONDITIONS AND ANY NEW CONDITIONS WILL BE IDENTIFIED AND REPORTED TO THE PHYSICIAN. Goal Provider Goal - PATIENT/CAREGIVER TO VERBALIZE, AND CONSISTENTLY DEMONSTRATE EFFECTIVE, SAFE MANAGEMENT OF MEDICATION INCLUDING KNOWLEDGE OF EFFECTIVENESS, POTENTIAL SIDE EFFECTS AND DRUG REACTIONS AND WHEN TO CONTACT THE APPROPRIATE CARE PROVIDER. PATIENT/CAREGIVER WILL BE ABLE TO VERBALIZE UNDERSTANDING OF MEDICATION REGIMEN AND ACCURATELY TAKE MEDICATIONS PRESCRIBED WITHOUT ADVERSE EFFECTS BY 6 WEEKS Goal Provider Goal - PATIENT / CAREGIVER WILL VERBALIZE/DEMONSTRATE UNDERSTANDING OF MEASURES TO MANAGE ALTERED CARDIOVASCULAR STATUS BY 6 WEEKS Goal Provider Goal - PATIENT / CAREGIVER WILL VERBALIZE/DEMONSTRATE AN ABILITY TO ADHERE TO SELF-MANAGEMENT OF ANGINA TO MINIMIZE COMPLICATIONS AND AVOID HOSPITALIZATION BY END OF EPISODE. Goal Provider Goal - PATIENT / CAREGIVER WILL VERBALIZE/DEMONSTRATE UNDERSTANDING OF MEASURES TO MANAGE ALTERED RESPIRATORY STATUS BY END OF EPISODE. Goal Provider Goal - PATIENT / CAREGIVER WILL VERBALIZE/DEMONSTRATE AN ABILITY TO ADHERE TO SELF-MANAGEMENT OF COPD TO MINIMIZE COMPLICATIONS AND AVOID HOSPITALIZATION BY END OF EPISODE. Goal Provider Goal - CHANGES IN SKIN INTEGRITY STATUS WILL BE IDENTIFIED AND REPORTED TO THE PHYSICIAN FOR PROMPT INTERVENTION. PATIENT / CAREGIVER WILL VERBALIZE/DEMONSTRATE ADEQUATE KNOWLEDGE OF INTEGUMENTARY STATUS AND APPROPRIATE MEASURES TO PROMOTE SKIN INTEGRITY AND PREVENT INJURY BY 6 WEEKS Goal Provider Goal - PATIENT / CAREGIVER WILL VERBALIZE / DEMONSTRATE UNDERSTANDING OF PAIN CONTROL MEASURES BY 6 WEEKS Goal Provider Goal - PATIENT/CAREGIVER WILL VERBALIZE/DEMONSTRATE UNDERSTANDING OF FALL RISK FACTORS AND IMPLEMENT STRATEGIES TO MINIMIZE FALL RISK. PATIENT/CAREGIVER WILL VERBALIZE/DEMONSTRATE AN ABILITY TO ADHERE TO FALL REDUCTION SELF-MANAGEMENT AND LIFE-STYLE CHANGES BY 6 WEEKS Goal Provider Goal - Goal Provider Goal - Encounters Start Date/Time End Date/Time Encounter Type Admission Type Attending [facility] Facility Care Department Encounter ID Discharge Date Discharge Status Discharge Condition Discharge Reason Percent Goals Met 2025-03-28 00:00:00 2025-05-26 00:00:00 Outpatient [facility] [id number]
--- OUTSIDE RECORDS SUMMARY | 2025-05-25 20:00 | XMS_ITS | Clinical Summary ---
Author Organization Unknown Care Team Providers Care Neon Sign Maker Name Role Phone OBINNA GAGE, MUSA Unavailable Unavailable KARI PT, WILFREDO Unavailable Unavailable BILLIE HEAD STOCK OPERATOR, JESSICA Unavailable Unavailable SAPPHIRE OT, MICA Unavailable Unavailable Payers Payer Name Policy Type Policy Number Effective Date Expira tion Date HOPEAUTH [id number] Problems Condition Name Condition Details Condition Category [...] 10-19 00:00: 00 ATHSCL HEART DISEASE OF [place] CORONARY ARTERY W/O ANG PCTRS Active 10-19 [...] tablet,yadira yed release 03-28 00:00: 00 Yes [id number] HEART 1 tablet DAILY 1 tablet DAILY (route: oral) Med Classific ation: Hematolog ical Agents atorvastati n 80 mg tablet 03-28 00:00: 00 Yes [id number] CHOLESTEROL 1 tablet DAILY 1 tablet DAILY (route: oral) Med Classific ation: Cardiovas cular Therapy Agents clopidogrel 75 mg tablet 03-28 00:00: 00 Yes [id number] BLOOD THINNER 1 tablet DAILY 1 tablet DAILY (route: oral) Med Classific ation: Hematolog ical Agents divalproex 125 mg tablet,yadira yed release 03-28 00:00: 00 Yes [id number] SEIZURE 4 tablet DAILY 4 tablet DAILY (route: oral) Med Classific ation: Central Nervous System Agents fluticasone propionate 50 mcg/actuati on nasal spray,suspe nsion 03-28 00:00: 00 Yes [id number] ALLERGIES 1 spray 2 TIMES DAILY 1 spray 2 TIMES DAILY (route: nasal) Med Classific ation: Respirato ry Therapy Agents hydrocodone 7.5 mg-acetamin ophen 325 mg tablet 03-28 00:00: 00 Yes [id number] PAIN 1 tablet 4 TIMES DAILY 1 tablet 4 TIMES DAILY (route: oral) Med Classific ation: Analgesic , Anti-infl ammatory or Antipyret ic isosorbide mononitrate ER 30 mg tablet,exte nded release 24 hr 03-28 00:00: 00 Yes [id number] HEART 1 tablet DAILY 1 tablet DAILY (route: oral) Med Classific ation: Cardiovas cular Therapy Agents lacosamide 150 mg tablet 03-28 00:00: 00 Yes [id number] SEIZURES 1 tablet 2 TIMES DAILY 1 tablet 2 TIMES DAILY (route: oral) Med Classific ation: Central Nervous System Agents levocetiriz ine 5 mg tablet 03-28 00:00: 00 Yes [id number] ALLERGIES 1 tablet DAILY 1 tablet DAILY (route: oral) Med Classific ation: Respirato ry Therapy Agents meclizine 25 mg chewable tablet 03-28 00:00: 00 Yes [id number] DIZZINESS 2 tablet 2 TIMES DAILY 2 tablet 2 TIMES DAILY (route: oral) Med Classific ation: Gastroint estinal Therapy Agents metformin 500 mg tablet 03-28 00:00: 00 Yes [id number] DIABETES 1 tablet 2 TIMES DAILY 1 tablet 2 TIMES DAILY (route: oral) Med Classific ation: Endocrine metoprolol succinate ER 50 mg tablet,exte nded release 24 hr 03-28 00:00: 00 Yes [id number] BLOOD PRESSURE, HR 1 tablet DAILY 1 tablet DAILY (route: oral) Med Classific ation: Cardiovas cular Therapy Agents nitroglycer in 0.4 mg sublingual tablet 03-28 00:00: 00 Yes [id number] CHEST PAIN 1 tablet NEEDED 1 tablet NEEDED (route: sublingual ) Med Classific ation: Cardiovas cular Therapy Agents potassium chloride ER 10 mEq tablet,exte nded release 03-28 00:00: 00 Yes [id number] SUPPLEMENT 1 tablet DAILY 1 tablet DAILY (route: oral) Med Classific ation: Electroly te Balance-N utritiona l Products quetiapine 50 mg tablet 03-28 00:00: 00 Yes [id number] SLEEP 1 tablet BEDTIME 1 tablet BEDTIME (route: oral) Med Classific ation: Central Nervous System Agents ranolazine ER 1,000 mg tablet,exte nded release,12 hr 03-28 00:00: 00 Yes [id number] CHEST PAIN 1 tablet 2 TIMES DAILY 1 tablet 2 TIMES DAILY (route: oral) Med Classific ation: Cardiovas cular Therapy Agents Vitamin D3 25 mcg (1,000 unit) capsule 2025-0 6-10 00:00: 00 Yes [id number] SUPPLEMENT 1 capsule DAILY 1 capsule DAILY [...] PHYSICIANS PCP RN TO OBSERVE AND ASSESS, PROFESSOR OF GERMAN/HOG RIBBER TO OBSERVE FOR RISK FOR FALLS AND INSTRUCT IN FALL PREVENTION, HOME SAFETY, MEDICATION MANAGEMENT, INFECTION PREVENTION, AND NUTRITION MANAGEMENT. RN/PROFESSOR OF GERMAN/HOG RIBBER NURSE MAY PERFORM O2 SATURATION LEVEL ON ADMISSION AND PRN FOR SOB FOR RN TO ASSESS/PROFESSOR OF GERMAN TO OBSERVE PATIENT, WITH NOTIFICATION TO THE PHYSICIAN IF SATURATION IS 90% IN THE ABSENCE OF MORE SPECIFIC PARAMETERS FROM THE PHYSICIAN. AGENCY MAY PERFORM A RESUMPTION OF CARE VISIT FOLLOWING ANY HOSPITAL ADMISSION. RN/PROFESSOR OF GERMAN/HOG RIBBER TO MONITOR CO-MORBID CONDITIONS LISTED ON THE PLAN OF CARE AND ANY NEW CONDITIONS THAT PRESENT THEMSELVES DURING THIS EPISODE TO IDENTIFY CHANGES AND INTERVENE TO MINIMIZE COMPLICATIONS. [code = RN TO OBSERVE, ASSESS, EVALUATE, AND DEVELOP AN INDIVIDUALIZED PLAN OF CARE. AGENCY MAY ACCEPT ORDERS FROM CONSULTING PHYSICIANS PCP RN TO OBSERVE AND ASSESS, PROFESSOR OF GERMAN/HOG RIBBER TO OBSERVE FOR RISK FOR FALLS AND INSTRUCT IN FALL PREVENTION, HOME SAFETY, MEDICATION MANAGEMENT, INFECTION PREVENTION, AND NUTRITION MANAGEMENT. RN/PROFESSOR OF GERMAN/HOG RIBBER NURSE MAY PERFORM O2 SATURATION LEVEL ON ADMISSION AND PRN FOR SOB FOR RN TO ASSESS/PROFESSOR OF GERMAN TO OBSERVE PATIENT, WITH NOTIFICATION TO THE PHYSICIAN IF SATURATION IS 90% IN THE ABSENCE OF MORE SPECIFIC PARAMETERS FROM THE PHYSICIAN. AGENCY MAY PERFORM A RESUMPTION OF CARE VISIT FOLLOWING ANY HOSPITAL ADMISSION. RN/PROFESSOR OF GERMAN/HOG RIBBER TO MONITOR CO-MORBID CONDITIONS LISTED ON THE PLAN OF CARE AND ANY NEW CONDITIONS THAT PRESENT THEMSELVES DURING THIS EPISODE TO IDENTIFY CHANGES AND INTERVENE TO MINIMIZE COMPLICATIONS.] Future Scheduled Test MEDICATION MANAGEMENT; RN/PROFESSOR OF GERMAN/HOG RIBBER TO REVIEW MEDICATIONS FOR INTERACTIONS, EFFECTIVENESS OF DRUG THERAPY, AND SIGNS/SYMPTOMS OF ADVERSE REACTIONS. MAY INSTRUCT AND REINFORCE MEDICATION TEACHING RELATED TO THE USE OF MEDICATIONS, DOSAGE, FREQUENCY, PURPOSE, SIDE EFFECTS, AND TO REPORT COMPLICATIONS. [code = MEDICATION MANAGEMENT; RN/PROFESSOR OF GERMAN/HOG RIBBER TO REVIEW MEDICATIONS FOR INTERACTIONS, EFFECTIVENESS OF DRUG THERAPY, AND SIGNS/SYMPTOMS OF ADVERSE REACTIONS. MAY INSTRUCT AND REINFORCE MEDICATION TEACHING RELATED TO THE USE OF MEDICATIONS, DOSAGE, FREQUENCY, PURPOSE, SIDE EFFECTS, AND TO REPORT COMPLICATIONS.] Future Scheduled Test CARDIOVASC ULAR SYSTEM; RN TO ASSESS/TEACH, PROFESSOR OF GERMAN/HOG RIBBER TO OBSERVE/TEACH RELATED TO ALTERED CARDIOVASCULAR STATUS TO MINIMIZE COMPLICATIONS AND REDUCE HOSPITALIZATION. [code = CARDIOVASCULAR SYSTEM; RN TO ASSESS/TEACH, PROFESSOR OF GERMAN/HOG RIBBER TO OBSERVE/TEACH RELATED TO ALTERED CARDIOVASCULAR STATUS TO MINIMIZE COMPLICATIONS AND REDUCE HOSPITALIZATION.] Future Scheduled Test ANGINA MAN AGEMENT; RN TO ASSESS AND TEACH, PROFESSOR OF GERMAN/HOG RIBBER TO OBSERVE AND TEACH WARNING SIGNS AND SYMPTOMS TO AVOID HOSPITALIZATION. [code = ANGINA MANAGEMENT; RN TO ASSESS AND TEACH, PROFESSOR OF GERMAN/HOG RIBBER TO OBSERVE AND TEACH WARNING SIGNS AND SYMPTOMS TO AVOID HOSPITALIZATION.] Future Scheduled Test RESPIRATOR Y SYSTEM MANAGEMENT; RN TO ASSESS AND TEACH, PROFESSOR OF GERMAN/HOG RIBBER TO OBSERVE AND TEACH RELATED TO ALTERED RESPIRATORY STATUS TO MINIMIZE COMPLICATIONS AND REDUCE HOSPITALIZATION. [code = RESPIRATORY SYSTEM MANAGEMENT; RN TO ASSESS AND TEACH, PROFESSOR OF GERMAN/HOG RIBBER TO OBSERVE AND TEACH RELATED TO ALTERED RESPIRATORY STATUS TO MINIMIZE COMPLICATIONS AND REDUCE HOSPITALIZATION.] Future Scheduled Test COPD MANAG EMENT; RN TO ASSESS AND TEACH, PROFESSOR OF GERMAN/HOG RIBBER TO OBSERVE AND TEACH SIGNS/SYMPTOMS OF COPD EXACERBATION AND PROVIDE EARLY INTERVENTIONS TO MINIMIZE RISK OF HOSPITALIZATION. RN/PROFESSOR OF GERMAN/HOG RIBBER TO INSTRUCT ON SELF-CARE MANAGEMENT INCLUDING BREATHING TECHNIQUES, AIRWAY CLEARANCE, AND PROPER USE OF COPD MEDICATIONS. RN TO ASSESS AND TEACH, PROFESSOR OF GERMAN/HOG RIBBER TO OBSERVE AND TEACH PATIENT/CAREGIVER ABILITY TO MONITOR AND RECORD VITAL SIGNS INCLUDING PULSE OXIMETRY AND BLOOD PRESSURE. PULSE OXIMETER AND BP MONITOR TO BE PROVIDED IF NEEDED [code = COPD MANAGEMENT; RN TO ASSESS AND TEACH, PROFESSOR OF GERMAN/HOG RIBBER TO OBSERVE AND TEACH SIGNS/SYMPTOMS OF COPD EXACERBATION AND PROVIDE EARLY INTERVENTIONS TO MINIMIZE RISK OF HOSPITALIZATION. RN/PROFESSOR OF GERMAN/HOG RIBBER TO INSTRUCT ON SELF-CARE MANAGEMENT INCLUDING BREATHING TECHNIQUES, AIRWAY CLEARANCE, AND PROPER USE OF COPD MEDICATIONS. RN TO ASSESS AND TEACH, PROFESSOR OF GERMAN/HOG RIBBER TO OBSERVE AND TEACH PATIENT/CAREGIVER ABILITY TO MONITOR AND RECORD VITAL SIGNS INCLUDING PULSE OXIMETRY AND BLOOD PRESSURE. PULSE OXIMETER AND BP MONITOR TO BE PROVIDED IF NEEDED ] Future Scheduled Test SKIN INTEG RITY RN TO ASSESS AND TEACH, PROFESSOR OF GERMAN/HOG RIBBER TO OBSERVE AND TEACH INTEGUMENTARY STATUS TO IDENTIFY CHANGES AND INTERVENE TO MINIMIZE COMPLICATIONS. PROVIDE SKILLED TEACHING OF GENERAL WOUND AND SKIN CARE AND PREVENTION RELATED TO POTENTIAL FOR OR ACTUAL ALTERED SKIN INTEGRITY [code = SKIN INTEGRITY RN TO ASSESS AND TEACH, PROFESSOR OF GERMAN/HOG RIBBER TO OBSERVE AND TEACH INTEGUMENTARY STATUS TO IDENTIFY CHANGES AND INTERVENE TO MINIMIZE COMPLICATIONS. PROVIDE SKILLED TEACHING OF GENERAL WOUND AND SKIN CARE AND PREVENTION RELATED TO POTENTIAL FOR OR ACTUAL ALTERED SKIN INTEGRITY ] Future Scheduled Test PAIN MANAG EMENT; RN TO ASSESS AND TEACH, HOG RIBBER/PROFESSOR OF GERMAN TO OBSERVE AND TEACH AND PROVIDE EDUCATION ON PAIN MANAGEMENT TECHNIQUES. [code = PAIN MANAGEMENT; RN TO ASSESS AND TEACH, HOG RIBBER/PROFESSOR OF GERMAN TO OBSERVE AND TEACH AND PROVIDE EDUCATION ON PAIN MANAGEMENT TECHNIQUES.] Future Scheduled Test FALL REDUC TION MANAGEMENT; RN TO ASSESS AND OBSERVE, PROFESSOR OF GERMAN/HOG RIBBER TO OBSERVE FALL RISK FACTORS AND EDUCATE PATIENT/CAREGIVER ON STRATEGIES TO MINIMIZE THE RISK OF FALLING. [code = FALL REDUCTION MANAGEMENT; RN TO ASSESS AND OBSERVE, PROFESSOR OF GERMAN/HOG RIBBER TO OBSERVE FALL RISK FACTORS AND EDUCATE [...] End Date/Time Encounter Type Admission Type Attending [facility] Care Department Encounter ID Discharge Date Discharge Status Discharge Condition Discharge Reason Percent Goals Met 2025-03-28 00:00:00 2025-05-26 00:00:00 Outpatient WILFREDO KELLEY [facility] [id number]
== END 2025-04-15 17:15 | disposition home or self-care (01) ==
PROVIDERS: Student in an Organized Health Care Education/Training Program; Emergency Provider Emergency Medicine; PCP Family Medicine
DX: J01.90 Acute sinusitis, unspecified (principal); R51.9 Headache, unspecified; Z87.891 Personal history of nicotine dependence
CPT/HCPCS: 70450; 70487; 80053; 85025; 96374; 96375; 99284; J0780; J1200; J1885; J7030; Q9967

== ENCOUNTER 2025-04-25 13:39 | Emergency (ER) | payer MEDICARE, SELFPAY ==
[2025-04-25] VITALS (7 sets, daily range): BP systolic 109–134; BP diastolic 64–77; PULSE 55–64; RESP 14–20; TEMP 36.6; O2SAT 96–99; BMI 28.0
--- NOTE | 2025-04-25 13:37 | ECG_ITS ---
APPROVED REPORT Exam: Resting ECG HR:61 bpm ECG Measurements Heart Rate 61 AXES OK 170 P 56 QRSd 90 QRS 10 QT 380 T 56 QTc 383 Conclusion SINUS RHYTHM NORMAL ECG UNCONFIRMED REPORT Electronically signed by : Ivan Clifford, 04/25/2025 15:27:50
--- OUTSIDE RECORDS SUMMARY | 2025-04-25 13:47 | XMS_ITS | Encounter Summary ---
Author Organization [employer] ([place], [place], [place], [place]) Address [address] [place] [address] Care Team Providers Care Watershed Coordinator Name Role Phone Unavailable Primary Care Provider Unavailabl e Encounter Details Date Type Department Care Team (Late st Contact Info) Description 01/08/2022 Transcribed Document [facility] [place] Family Medicine [address] [place] [address] ProviderCarlos MD [address] [place] [address] Social History Tobacco Use Types [...] On: 01/08/2022 14:04 EDT by Angelique Joyce, Inspector Wire Rope Primary Insurance Authorization Authorization and Policy Numbers : Insurance 1 Health Plan: [employer] Policy Number: [id number] Authorization Number: Insurance Primary Name : [employer] - Policy Number: [id number] Authorization Status-Primary : Drg approved Auth/Referral Contact Name-Primary : DC Reference Number-Primary : [id number] Authorization Number-Primary : [id number] Number of Days Authorized-Primary : 5 Day(s) Authorized Service Begin Date-Primary : 01/03/2022 EDT Authorized Service End Date-Primary : 01/08/2022 EDT Authorization Comments-Primary : Discharge summary faxed. Historical Authorization Comments-Primary : Comment 1: Authorized per fax 01/08/22 @ 1237. Approved DRG inpatient length of stay 01/03 - 01/09. (Angelique Joyce, Inspector Wire Rope 01/08/2022 14:03) Comment 2: Clinicals faxed via [employer] for IP approval (ISAIAS NAVARRO RN 01/07/2022 12:21) Comment 3: AUTH SUBMITTED VIA [employer] /w CLINICALS ATTACHED (Olive Dolan RN 01/04/2022 15:27) Angelique Joyce, Inspector Wire Rope - 01/08/2022 14:04 EDT documented in this encounter Plan of Treatment Not on file documented as of this encounter Visit Diagnoses Not on filedocumented in this encounter
--- OUTSIDE RECORDS SUMMARY | 2025-04-25 13:47 | XMS_ITS | Encounter Summary ---
Author Organization [employer] ([place], [place], [place], [place]) Address [address] [place] [address] Care Team Providers Care Fish Cake Maker Name Role Phone Unavailable Primary Care Provider Unavailabl e Encounter Details Date Type Department Care Team (Late st Contact Info) Description 01/03/2022 Transcribed Document [facility] [place] [facility] [place] [address] ProviderCarlos MD [address] [place] [address] Social History Tobacco Use Types Packs/Day Years Used Date Smoking Tobacco: Never Assessed Sex and Gender Information Value Date Recorded Sex Assigned at Male 04/15/2022 4:33 PM CDT Legal Sex Male 4:33 PM CDT Gender Identity Male 04/15/2022 4:33 PM CDT Sexual Orientation Not on file documented as of this encounter Miscellaneous Notes * [employer] Conversion Note - Carlos ProviderMD - 01/03/2022 11:39 PM CDT Education-Diabetes [...] Monica Callahan RN - 01/05/2022 0:19 EDT Electronically signed by Jayde Babin Conversion Bioinformatics Software Engineer [employer] at 02/02/2023 1:41 PM CDT documented in this encounter Plan of Treatment Not on file documented as of this encounter Visit Diagnoses Not on filedocumented in this encounter
--- OUTSIDE RECORDS SUMMARY | 2025-04-25 13:47 | XMS_ITS | Encounter Summary ---
Author Organization [employer] ([place], [place], [place], [place]) Address [address] [place] [address] Care Team Providers Care Ota Name Role Phone Unavailable Primary Care Provider Unavailabl e Encounter Details Date Type Department Care Team (Late st Contact Info) Description 01/05/2022 Transcribed Document [facility] [place] Family Medicine [facility] [place] [address] ProviderCarlos MD [address] [place] [address] Social History Tobacco Use Types [...] assessment additional narrative Description of Event : CARTON MACHINE OPERATOR approached RN at shift change stating that [...] comfortable with call light. At approximately 0015, CARTON MACHINE OPERATOR approached RN stating that patient had again [...]
--- OUTSIDE RECORDS SUMMARY | 2025-04-25 13:47 | XMS_ITS | Encounter Summary ---
Author Organization [employer] ([place], [place], [place], [place]) Address [address] [place] [address] Care Team Providers Care Guest Relations Associate Name Role Phone Unavailable Primary Care Provider Unavailabl e Encounter Details Date Type Department Care Team (Late st Contact Info) Description 01/05/2022 Transcribed Document [facility] [place] [address] ProviderCarlos MD [address] [place] [address] Social History Tobacco Use Types [...] Oral Intake (950 mL) Output (2 Events) Schimd Catheter (1350 mL) Input Total: 952 mL [...] (JAN 04 18:31) DBP 82 (JAN 05 10:23) 73 (JAN 04 14:29) 86 (JAN 04 18:31) MAP 101 (JAN 05 10:) 90 (JAN 05 07:00) 122 (JAN 04 18:31) SpO2 96 (JAN 05 10:) L 93 (JAN 04 14:29) 96 (JAN [...] 04) 8.2 (JAN 03) HB L 11.2 (MAR 20) L 11.4 (JAN 04) L 11.3 (DEC 18) HCT L 32.8 (DEC 20) L 36.4 (DEC 19) L 34.6 (DEC 18) Plt 228 (DEC 20) 206 (JAN 04) 207 (DEC 18) Na 136 (DEC 20) L 135 (DEC 19) 138 (DEC 19) 136 (DEC 18) K 4.7 (DEC 20) 4.2 (DEC 19) 4.7 (DEC 19) 4.9 (DEC 18) Cl 103 (JAN 05) 103 (JAN 04) 106 (JAN 04) 106 (DEC 18) CO2 21 (JAN 05) L 19 (JAN 04) [...] 05) L 2.8 (JAN 04) L 2.9 (DEC 18) Radiology Results (Last 48 hours) [id number] -- 01/03/2022 20:35 US Renal Comp (01/04/2022 [...] when ZAHRA resolved. Ana Tabor Hospitalist pager- [phone] documented in this encounter Plan of Treatment Not on file documented as of this encounter Visit Diagnoses Not on filedocumented in this encounter
--- OUTSIDE RECORDS SUMMARY | 2025-04-25 13:47 | XMS_ITS | Encounter Summary ---
Author Organization [employer] ([place], [place], [place], [place]) Address [address] [place] [address] Care Team Providers Care Student Affairs Dean Name Role Phone Unavailable Primary Care Provider Unavailabl e Encounter Details Date Type Department Care Team (Late st Contact Info) Description 01/06/2022 Transcribed Document [facility] [place] [address] [place] [address] ProviderCarlos MD [address] [place] [address] Social History Tobacco Use Types [...] 15:50 EDT by RODDY PHILLIPS RN - Foster Parent Initial Assessment I Previously Documented Living Environment : No qualifying data available. Living Situation : Home Patient Lives With : Significant other(s) Emergency Contact #1 : Izabela Sanchezn Emergency Contact #1 Phone Number : [phone] Emergency Contact #1 Relationship : girlfriend Emergency [...] Guardian : No RODDY PHILLIPS RN - Foster Parent - 01/06/2022 15:50 EDT Initial Assessment II Current Home Treatments and Equipment : Walker RODDY PHILLIPS RN - Foster Parent - 01/06/2022 15:50 EDT Discharge Needs I Anticipated Discharge Date : 01/07/2022 EDT Anticipated Discharge To, CM : Home independently Current Home Treatment/Equipment : Current Home Treatment/Equipment No qualifying data available. Documentation Status Complete : Yes RODDY PHILLIPS RN - Foster Parent - 01/06/2022 15:50 EDT Discharge Needs II Professional Skilled Services : Professional Skilled Services No qualifying data available. Needs Assistance with Transportation : No Patient Discharge Goal : Home RODDY PHILLIPS RN - Foster Parent - 01/06/2022 15:50 EDT Narrative Note Narrative [...] girlfriend to transport. RODDY PHILLIPS RN - Foster Parent - 01/06/2022 15:50 EDT documented in this encounter Plan of Treatment Not on file documented as of this encounter Visit Diagnoses Not on filedocumented in this encounter
--- OUTSIDE RECORDS SUMMARY | 2025-04-25 13:47 | XMS_ITS | Referral Summary ---
Author Organization [employer] ([place], [place], [place], [place]) Address [address] [place] [address] Care Team Providers Care Plate Painter Apprentice Name Role Phone Unavailable Primary Care [...]
--- OUTSIDE RECORDS SUMMARY | 2025-04-25 13:47 | XMS_ITS | Encounter Summary ---
Author Organization [employer] ([place], [place], [place], [place]) Address [address] [place] [address] Care Team Providers Care Steel Plate Caulker Name Role Phone Unavailable Primary Care Provider Unavailabl e Encounter Details Date Type Department Care Team (Late st Contact Info) Description 01/04/2022 Transcribed Document [facility] [place] Medicine [facility] [place] [address] ProviderCarlos MD [address] [place] [address] Social History Tobacco Use Types [...] L 93 (JAN 04:) L 93 (JAN 04:00) 100 (JAN 04:28) General: No acute distress. [...] when ZAHRA resolved. Mirtha Tabor Hospitalist pager- [phone] documented in this encounter Plan of Treatment Not on file documented as of this encounter Visit Diagnoses Not on filedocumented in this encounter
--- OUTSIDE RECORDS SUMMARY | 2025-04-25 13:47 | XMS_ITS | Encounter Summary ---
Author Organization [employer] ([place], [place], [place], [place]) Address [address] [place] [address] Care Team Providers Care Router Operator Name Role Phone Unavailable Primary Care Provider Unavailabl e Encounter Details Date Type Department Care Team (Late st Contact Info) Description 01/08/[address] [facility] [place] [address] [place] [address] ProviderCarlos MD [address] [place] [address] Social History Tobacco Use Types [...] Sudden dizziness or trouble with gait, Call 06-19-: EMS activation is crucial My LDL Level: [...]
--- OUTSIDE RECORDS SUMMARY | 2025-04-25 13:47 | XMS_ITS | Encounter Summary ---
Author Organization [employer] ([place], [place], [place], [place]) Address [address] [place] [address] Care Team Providers Care Senior Stereo Compiler Team Lead Name Role Phone Unavailable Primary Care Provider Unavailabl e Encounter Details Date Type Department Care Team (Late st Contact Info) Description 01/03/2022 Transcribed Document [facility] [place] [address] [place] [address] ProviderCarlos MD [address] [place] [address] Social History Tobacco Use Types [...] 01/03/2022 21:25 EDT by Mikaela Mendoza Patient Sheriff Deputy Phan Phone Call for Consults Consult Phone Call/Page Attempt : First call Consult Reason : ZAHRA Consult, Additional Information : pt was seen on by Dr. Sanchez [place]. Mikaela Mendoza Patient Sheriff Deputy Phan - 01/04/2022 17:26 EDT documented in this encounter Plan of Treatment Not on file documented as of this encounter Visit Diagnoses Not on filedocumented in this encounter
--- OUTSIDE RECORDS SUMMARY | 2025-04-25 13:47 | XMS_ITS | Encounter Summary ---
Author Organization [employer] ([place], [place], [place], [place]) Address [address] [place] [address] Care Team Providers Care Teacher Of The Handicapped Name Role Phone Unavailable Primary Care Provider Unavailabl e Encounter Details Date Type Department Care Team (Late st Contact Info) Description 01/03/2022 Transcribed Document [facility] [place] [facility] [place] [address] ProviderCarlos MD [address] [place] [address] Social History Tobacco Use Types [...] Chief Complaint weakness Primary Care Provider SAMY, ABEL History of Present Illness 66 yo m w/ h/o dm2, htn chf with unknown lvef presents [facility] from outside facility where he allegedly presented [...] in accordance with the flexibilities announced by [facility] limited examination is performed. General: Well appearing, [...] # 0.72 x10(3)/uL (Low) 01/03/2022 21:48 EDT [place] % 8.9 % 01/03/2022 21:48 EDT [place] # 0.73 K/uL 01/03/2022 21:48 EDT Eos [...]
--- OUTSIDE RECORDS SUMMARY | 2025-04-25 13:47 | XMS_ITS | Encounter Summary ---
Author Organization [employer] ([place], [place], [place], [place]) Address [address] [place] [address] Care Team Providers Care Cause Analyst Name Role Phone Unavailable Primary Care Provider Unavailabl e Encounter Details Date Type Department Care Team (Late st Contact Info) Description 01/05/2022 Transcribed Document [facility] [place] Medicine [address] [place] [address] ProviderCarlos MD [address] [place] [address] Social History Tobacco Use Types [...]
--- OUTSIDE RECORDS SUMMARY | 2025-04-25 13:47 | XMS_ITS | Encounter Summary ---
Author Organization [employer] ([place], [place], [place], [place]) Address [address] [place] [address] Care Team Providers Care Adobe Block Maker Name Role Phone Unavailable Primary Care Provider Unavailabl e Encounter Details Date Type Department Care Team (Late st Contact Info) Description 01/03/2022 Transcribed Document [facility] [place] [facility] [place] [address] ProviderCarlos MD [place] [address] Social History Tobacco Use Types [...] Conversion Note - Historical ProviderMD - 01/03/2022 8:32 PM CDT Admission History, [...] [place] Emergency Contact #1 Phone Number : [phone] Emergency Contact #1 Relationship : girlfriend Emergency Contact #2 : none Emergency Contact #2 Phone Number : none Emergency Contact #2 Relationship : none Primary Language : Cypriot Communication Barrier : Cognitive Commercial Trailer Truck Driver Needed : No Ang Regan NON EMP [...] Level : 46 or > High Risk [place] Fall Interventions : Adequate lighting, Assistive devices [...] Source : Stated Height Entry Format : [place] Height, Feet : 5 ft(Converted to: 152 cm, 60 Inch) Height, Inches : 8 Inch(Converted to: 0 ft 8 Inch, 20.32 cm) Clinical Height : 172.72 cm [place] Body Weight : 67 kg Ang Regan NON EMP RN - 01/03/2022 21:38 EDT Estimated Weight Type of Weight Measurement Est : [place] Weight, est lb : 260 lb(Converted to: [...] Risk Level : Patient not at risk Jass MarshallpaulineSHAYE RN - 01/03/2022 21:38 EDT [place] Suicide Severity Rating Scale (C-SSRS) CSSRS Past Month Wish to be : No CSSRS Past Month Suicidal Thoughts : No CSSRS Lifetime Suicide Behavior : No Suicide Severity Rating Score : 0 Suicide Severity Rating : No Additional Care Required at this time Jass SHAYE Fry RN - 01/03/2022 21:38 [...] streetwear Clothing Disposition : With patient Jass MarshallpaulineSHAYE RN - 01/03/2022 21:38 EDT Electronically signed by Jayde Babin Conversion Folding Rules Printing Machine Operator Cerner at 02/02/2023 1:55 PM CDT documented in this encounter Plan of Treatment Not on file documented as of this encounter Visit Diagnoses Not on filedocumented in this encounter
--- OUTSIDE RECORDS SUMMARY | 2025-04-25 13:47 | XMS_ITS | Encounter Summary ---
Author Organization [employer] ([place], [place], [place], [place]) Address [address] [place] [address] Care Team Providers Care Waste Salvager Name Role Phone Unavailable Primary Care Provider Unavailabl e Encounter Details Date Type Department Care Team (Late st Contact Info) Description 01/05/2022 Transcribed Document [facility] [place] Medicine [address] [place] [address] ProviderCarlos MD [address] [place] [address] Social History Tobacco Use Types [...] Partner with , Dr. Paulson and Dr. Geniedy Note dictated with [employer] recognition system Medications acetaminophen, 650 mg= 2 [...] mg= 1 Tab, Oral, Daily Vitamin D2, [address]47 Units= 1 Cap, Oral, Weekly Lab Results [...] 133 mg/dL 01/05/2022 10:47 EDT Sodium Ur [place] 31 mMole/Liter 01/05/2022 10:47 EDT CK 311 [...] # 0.58 x10(3)/uL (Low) 01/05/2022 08:52 EDT [place] % 5.9 % 01/05/2022 08:52 EDT [place] # 0.31 K/uL 01/05/2022 08:52 EDT Eos [...]
--- OUTSIDE RECORDS SUMMARY | 2025-04-25 13:47 | XMS_ITS | Encounter Summary ---
Author Organization [employer] ([place], [place], [place], [place]) Address [address] [place] [address] Care Team Providers Care Paver Operator Name Role Phone Unavailable Primary Care Provider Unavailabl e Encounter Details Date Type Department Care Team (Late st Contact Info) Description 01/04/2022 Transcribed Document [facility] [place] [address] [place] [address] ProviderCarlos MD [address] [place] [address] Social History Tobacco Use Types [...] Paulson and Dr. Rocha Note dictated with [employer] recognition system Problem List/Past Medical History Ongoing [...] mg= 1 Tab, Oral, Daily Vitamin D2, [address] Units= 1 Cap, Oral, Weekly Home acetaminophen-oxyCODONE [...] Allergies Imdur Social History , lives in [facility], former smoker, no active illegal drug use [...] # 0.72 x10(3)/uL (Low) 01/03/2022 21:48 EDT [place] % 11.9 % (High) 01/04/2022 06:38 EDT [place] % 8.9 % 01/03/2022 21:48 EDT [place] # 0.80 K/uL 01/04/2022 06:38 EDT [place] # 0.73 K/uL 01/03/2022 21:48 EDT Eos [...] 01/03/2022 21:48 EDT Electronically signed by Talya [facility] Conversion Fiberglass Boat Maker Cerner at 02/02/2023 1:41 PM CDT documented in this encounter Plan of Treatment Not on file documented as of this encounter Visit Diagnoses Not on filedocumented in this encounter
--- OUTSIDE RECORDS SUMMARY | 2025-04-25 13:47 | XMS_ITS | Encounter Summary ---
Author Organization [employer] ([place], [place], [place], [place]) Address [address] [place] [address] Care Team Providers Care Physiotherapy Practice Manager Name Role Phone Unavailable Primary Care Provider Unavailabl e Encounter Details Date Type Department Care Team (Late st Contact Info) Description 01/06/2022 Transcribed Document [facility] [place] [address] [place] [address] ProviderCarlos MD [address] [place] [address] Social History Tobacco Use Types [...] Conversion Note - Historical ProviderMD - 01/06/2022 12:07 PM CDT Patient: INEZ [...] 228 (JAN 05) 206 (JAN 04) 207 (DEC 18) Na L 134 (JAN 06) 136 (DEC 20) L 135 (JAN 04) 138 (JAN 04) [...] (JAN 03) Radiology Results (Last 48 hours) [id number] -- 01/03/2022 20:35 CR Abdomen 1 Vw [...] in 2 days. Ana Tabor Hospitalist pager- [phone] Talya [facility] Conversion Calciner Feeder Cerner at 02/02/2023 1:42 PM CDT documented in this encounter Plan of Treatment Not on file documented as of this encounter Visit Diagnoses Not on filedocumented in this encounter
--- OUTSIDE RECORDS SUMMARY | 2025-04-25 13:47 | XMS_ITS | Encounter Summary ---
Author Organization [employer] ([place], [place], [place], [place]) Address [address] [place] [address] Care Team Providers Care Boat Tester Name Role Phone Unavailable Primary Care Provider Unavailabl e Encounter Details Date Type Department Care Team (Late st Contact Info) Description 01/04/2022 Transcribed Document [facility] [place] [address] [place] [address] ProviderCarlos MD [address] [place] [address] Social History Tobacco Use Types [...] Policy Numbers : Insurance 1 Health Plan: [place] Policy Number: [id number] Authorization Number: Insurance Primary Name : [place] Policy Number: [id number] Reference Number-Primary : [id number] Authorized Service Begin Date-Primary : 01/03/2022 EDT Authorization Comments-Primary : AUTH SUBMITTED VIA [employer] /w CLINICALS ATTACHED Historical Authorization Comments-Primary : No Authorization Comments Found TERESA RUEDA RN - 01/04/2022 15:27 EDT documented in this encounter Plan of Treatment Not on file documented as of this encounter Visit Diagnoses Not on filedocumented in this encounter
--- OUTSIDE RECORDS SUMMARY | 2025-04-25 13:47 | XMS_ITS | Encounter Summary ---
Author Organization [employer] ([place], [place], [place], [place]) Address [address] [place] [address] Care Team Providers Care Handle Bender Name Role Phone Unavailable Primary Care Provider Unavailabl e Encounter Details Date Type Department Care Team (Late st Contact Info) Description 01/04/2022 Transcribed Document [facility] [place] [facility] [place] [address] ProviderCarlos MD [address] [place] [address] Social History Tobacco Use Types Packs/Day Years Used Date Smoking Tobacco: Never Assessed Sex and Gender Information Value Date Recorded Sex Assigned at Male 04/15/2022 4:33 PM CDT Legal Sex Male 4:33 PM CDT Gender Identity Male 04/15/2022 4:33 PM CDT Sexual Orientation Not on file documented as of this encounter Miscellaneous Notes * Roxann Conversion Note - Historical ProviderMD - 01/04/2022 12:06 AM CDT Pain Assessment Entered On: 01/06/2022 2:09 EDT Performed On: 01/05/2022 21:58 EDT by EMMA DIEGO LPN Intervention Information: acetaminophen-oxyCODONE Performed by EMMA DIEGO LPN on 01/05/2022 20:58:00 EDT acetaminophen-oxyCODONE,1Tab Oral,Pain (Moderate 4-6) Pain Assessment Pain Assessment : Follow-up assessment Pain Scale Goal : 4 Pain Scale Used : 0-10 Scale EMMA DIEOG LPN - 01/06/2022 2:09 EDT Pain Scale [...]
--- OUTSIDE RECORDS SUMMARY | 2025-04-25 13:47 | XMS_ITS | Encounter Summary ---
Author Organization [employer] ([place], [place], [place], [place]) Address [address] [place] [address] Care Team Providers Care Health Consultant Name Role Phone Unavailable Primary Care Provider Unavailabl e Encounter Details Date Type Department Care Team (Late st Contact Info) Description 01/06/2022 Transcribed Document [facility] [place] [address] [place] [address] ProviderCarlos MD [address] [place] [address] Social History Tobacco Use Types [...] Historical ProviderMD - 01/06/2022 2:00 AM CDT Vest Presser Details Entered On: 01/06/2022 2:10 EDT Performed [...]
--- OUTSIDE RECORDS SUMMARY | 2025-04-25 13:47 | XMS_ITS | Encounter Summary ---
Author Organization [employer] ([place], [place], [place], [place]) Address [address] [place] [address] Care Team Providers Care Engineering Assistant Name Role Phone Unavailable Primary Care Provider Unavailabl e Encounter Details Date Type Department Care Team (Late st Contact Info) Description 01/05/2022 Transcribed Document [facility] [place] Family Medicine [address] [place] [address] ProviderCarlos MD [address] [place] [address] Social History Tobacco Use Types [...] Historical ProviderMD - 01/05/2022 2:00 AM CDT Flour Mixer Details Entered On: 01/05/2022 0:20 EDT Performed [...]
--- OUTSIDE RECORDS SUMMARY | 2025-04-25 13:47 | XMS_ITS | Encounter Summary ---
Author Organization [employer] ([place], [place], [place], [place]) Address [address] [place] [address] Care Team Providers Care Engineering Program Analyst Name Role Phone Unavailable Primary Care Provider Unavailabl e Encounter Details Date Type Department Care Team (Late st Contact Info) Description 01/03/2022 Transcribed Document [facility] [place] [facility] [place] [address] ProviderCarlos MD [facility] [place] [address] Social History Tobacco Use Types [...] Conversion Note - Carlos ProviderMD - 01/03/2022 11:33 PM CDT Education-Wound Care Entered On: 01/05/2022 0:19 EDT Performed On: 01/03/2022 23:33 EDT by Monica Callahan V RN Teaching/Learning Assessment Barriers To Learning : Acuity of Illness, Cognitive deficit Monica Callahan V RN - 01/05/2022 0:18 EDT Education Topics, [...] 01/05/2022 0:18 EDT Electronically signed by Talya [facility] Conversion Data Collection Technician Cerner at 02/02/2023 1:49 PM CDT documented in this encounter Plan of Treatment Not on file documented as of this encounter Visit Diagnoses Not on filedocumented in this encounter
--- OUTSIDE RECORDS SUMMARY | 2025-04-25 13:47 | XMS_ITS | Encounter Summary ---
Author Organization [employer] ([place], [place], [place], [place]) Address [address] [place] [address] Care Team Providers Care Manufacturing Worker Name Role Phone Unavailable Primary Care Provider Unavailabl e Encounter Details Date Type Department Care Team (Late st Contact Info) Description 01/04/2022 Transcribed Document [facility] [place] Family Medicine [address] [place] [address] ProviderCarlos MD [address] [place] [address] Social History Tobacco Use Types [...] 01/04/2022 10:16 EDT by Mikaela Mendoza Patient Php Engineer Phan Phone Call for Consults Consult Phone Call/Page Attempt : First call Consult Reason : ZAHRA Provider Service Notified Name : Nephrology Physician Returning Call : SEBASTIÁN RUTH [facility] Consult, Additional Information : Consult called on 01/04/2022 spoke with Sebastián Montanez. is aware of the consult and pt is on his list. Mikaela Mendoza, Patient Php Engineer I - 01/04/2022 10:49 EDT documented in this encounter Plan of Treatment Not on file documented as of this encounter Visit Diagnoses Not on filedocumented in this encounter
--- OUTSIDE RECORDS SUMMARY | 2025-04-25 13:48 | XMS_ITS | Encounter Summary ---
Author Organization [employer] ([place], [place], [place], [place]) Address [address] [place] [address] Care Team Providers Care Socket Welder Helper Name Role Phone Unavailable Primary Care Provider Unavailabl e Encounter Details Date Type Department Care Team (Late st Contact Info) Description 01/08/2022 Transcribed Document [facility] [place] [facility] [place] [address] ProviderCarlos MD [address] [place] [address] Social History Tobacco Use Types [...] On: 01/08/2022 8:33 EDT by Celia Rodriguez, CAN CARRIER Patient Resource Center Provider Status : EST Other Established Provider Name : Kaveh Ryan Patient Phone Number : [phone] Patient Insurance Type : Medicaid (ex. [employer], [...] at ED : Other Primary Language : German Patient Resource Center Comment : PCP and NEPH appts made Follow Up Needed : No Celia Rodriguez, CAN CARRIER - 01/08/2022 8:33 EDT Electronically signed by [facility] Conversion Physician President Cerner at 02/02/2023 2:06 PM CDT documented in this encounter Plan of Treatment Not on file documented as of this encounter Visit Diagnoses Not on filedocumented in this encounter
--- OUTSIDE RECORDS SUMMARY | 2025-04-25 13:48 | XMS_ITS | Encounter Summary ---
Author Organization [employer] ([place], [place], [place], [place]) Address [address] [place] [address] Care Team Providers Care Electrical Logging Engineer Name Role Phone Unavailable Primary Care Provider Unavailabl e Encounter Details Date Type Department Care Team (Late st Contact Info) Description 01/06/2022 Transcribed Document [facility] [place] [address] [place] [address] ProviderCarlos MD [address] [place] [address] Social History Tobacco Use Types [...]
--- OUTSIDE RECORDS SUMMARY | 2025-04-25 13:48 | XMS_ITS | Encounter Summary ---
Author Organization [employer] ([place], [place], [place], [place]) Address [address] [place] [address] Care Team Providers Care Human Factors Advisor Lead Name Role Phone Unavailable Primary Care Provider Unavailabl e Encounter Details Date Type Department Care Team (Late st Contact Info) Description 01/08/2022 Transcribed Document [facility] [place] [facility] [place] [address] ProviderCarlos MD [address] [place] [address] Social History Tobacco Use Types [...] Conversion Note - Carlos ProviderMD - 01/08/2022 2:03 PM CDT UM Authorization Entered On: 01/08/2022 14:04 EDT Performed On: 01/08/2022 14:03 EDT by Angelique Joyce, Customer Program Manager Primary Insurance Authorization Authorization and Policy Numbers : Insurance 1 Health Plan: [place] Medicaid Policy Number: [id number] Authorization Number: Insurance Primary Name : [place] Medicaid - Policy Number: [id number] Authorization Status-Primary : Drg approved Auth/Referral Contact Name-Primary : [place] Reference Number-Primary : [id number] Authorization Number-Primary : [id number] Number of Days Authorized-Primary : 5 Day(s) Authorized Service Begin Date-Primary : 01/03/2022 EDT Authorized Service End Date-Primary : 01/08/2022 EDT Authorization Comments-Primary : Authorized per fax 01/08/22 @ 1237. Approved DRG inpatient length of stay 01/03 - 01/09. Historical Authorization Comments-Primary : Comment 1: Clinicals faxed via [employer] for IP approval (ISAIAS NAVARRO RN 01/07/2022 12:21) Comment 2: AUTH SUBMITTED VIA [employer] /w CLINICALS ATTACHED (Olive Dolan RN 01/04/2022 15:27) Angelique Joyce, Customer Program Manager - 01/08/2022 14:03 EDT documented in this encounter Plan of Treatment Not on file documented as of this encounter Visit Diagnoses Not on filedocumented in this encounter
--- OUTSIDE RECORDS SUMMARY | 2025-04-25 13:48 | XMS_ITS | Encounter Summary ---
Author Organization [employer] ([place], [place], [place], [place]) Address [address] [place] [address] Care Team Providers Care Prop Drawer Name Role Phone Unavailable Primary Care Provider Unavailabl e Encounter Details Date Type Department Care Team (Late st Contact Info) Description 01/08/2022 Transcribed Document [facility] [place] [facility] [place] [address] ProviderCarlos MD [facility] [place] [address] Social History Tobacco Use Types [...] Conversion Note - Carlos ProviderMD - 01/08/2022 10:30 AM CDT Patient: [...] Medical At risk for violence / IMO [id number] / Confirmed History of obstructive sleep apnea / IMO [id number] / Confirmed, Active Problems (8) At risk [...] 07:00) SpO2 95 (JAN 08:) 94 (JAN 07:) 97 (JAN 08 04:41) General: Alert and [...]
--- OUTSIDE RECORDS SUMMARY | 2025-04-25 13:48 | XMS_ITS | Encounter Summary ---
Author Organization [employer] ([place], [place], [place], [place]) Address [address] [place] [address] Care Team Providers Care Business Excellence Leader Name Role Phone Unavailable Primary Care Provider Unavailabl e Encounter Details Date Type Department Care Team (Late st Contact Info) Description 01/06/2022 Transcribed Document [facility] [place] [facility] [place] [address] ProviderCarlos [place] [address] Social History Tobacco Use Types Packs/Day Years Used Date Smoking Tobacco: Never Assessed Sex and Gender Information Value Date Recorded Sex Assigned at Male 04/15/2022 4:33 PM CDT Legal Sex Male 4:33 PM CDT Gender Identity Male 04/15/2022 4:33 PM CDT Sexual Orientation Not on file documented as of this encounter Miscellaneous Notes * Cerner Conversion Note - Carlos ProviderMD - 01/06/2022 11:25 AM CDT Patient: [...] Medical At risk for violence / IMO [id number] / Confirmed History of obstructive sleep apnea / IMO [id number] / Confirmed, Active Problems (8) At risk [...] (JAN 06 08:23) Resp Rate 16 (JAN 06:23) 16 (JAN 05 18:00) 18 (JAN 05 23:45) SBP 120 (JAN 06 06:00) 112 (JAN 05 15:35) 135 (JAN 05 18:00) DBP 74 (JAN 06 06:00) 66 (JAN 05 23:45) 74 (JAN 06 06:00) MAP 103 (JAN 06 03:30) 82 (JAN 05 15:35) 108 (JAN 05 18:00) SpO2 96 (JAN 06:23) 95 (JAN 05:45) 97 (JAN 05:35) General: Alert and oriented, [...]
--- OUTSIDE RECORDS SUMMARY | 2025-04-25 13:48 | XMS_ITS | Encounter Summary ---
Author Organization [employer] ([place], [place], [place], [place]) Address [address] [place] [address] Care Team Providers Care Score Caller Name Role Phone Unavailable Primary Care Provider Unavailabl e Encounter Details Date Type Department Care Team (Late st Contact Info) Description 01/08/2022 Transcribed Document [facility] [place] [address] [place] [address] ProviderCarlos MD [address] [place] [address] Social History Tobacco Use Types Packs/Day Years [...]
--- OUTSIDE RECORDS SUMMARY | 2025-04-25 13:48 | XMS_ITS | Encounter Summary ---
Author Organization [employer] ([place], [place], [place], [place]) Address [address] [place] [address] Care Team Providers Care Vulnerability Assessment Analyst Name Role Phone Unavailable Primary Care Provider Unavailabl e Encounter Details Date Type Department Care Team (Late st Contact Info) Description 01/06/2022 Transcribed Document [facility] [place] [address] [place] [address] ProviderCarlos MD [address] [place] [address] Social History Tobacco Use Types [...] On: 01/06/2022 13:33 EDT by Donaldo Darden Can Operator Cert Lead Meds to Bed Enrollment Patient Enrollment Decision: : Yes/enroll in meds to bed program Donaldo Darden Can Operator Cert Lead - 01/06/2022 13:33 EDT Electronically signed by Jayde Babin Conversion Finishing Department Supervisor Cerner at 02/02/2023 1:59 PM CDT documented in this encounter Plan of Treatment Not on file documented as of this encounter Visit Diagnoses Not on filedocumented in this encounter
--- OUTSIDE RECORDS SUMMARY | 2025-04-25 13:48 | XMS_ITS | Clinical Summary ---
Author Organization [employer] ([place], [place], [place], [place]) Address [address] [place] [address] Care Team Providers Care Business Executive Name Role Phone Unavailable Primary Care Provider [...]
--- OUTSIDE RECORDS SUMMARY | 2025-04-25 13:48 | XMS_ITS | Encounter Summary ---
Author Organization [employer] ([place], [place], [place], [place]) Address [address] [place] [address] Care Team Providers Care Per Diem Nurse Name Role Phone Unavailable Primary Care Provider Unavailabl e Encounter Details Date Type Department Care Team (Late st Contact Info) Description 01/08/2022 Transcribed Document [facility] [place] Family Medicine [address] [place] [address] ProviderCarlos MD [address] [place] [address] Social History Tobacco Use Types [...] Historical ProviderMD - 01/08/2022 2:00 AM CDT Thread Marker Details Entered On: 01/08/2022 6:49 EDT Performed [...]
--- OUTSIDE RECORDS SUMMARY | 2025-04-25 13:48 | XMS_ITS | Encounter Summary ---
Author Organization [employer] ([place], [place], [place], [place]) Address [address] [place] [address] Care Team Providers Care Coal Tower Operator Name Role Phone Unavailable Primary Care Provider Unavailabl e Encounter Details Date Type Department Care Team (Late st Contact Info) Description 01/07/2022 Transcribed Document [facility] [place] [address] [place] [address] ProviderCarlos MD [address] [place] [address] Social History Tobacco Use Types [...] Conversion Note - Historical ProviderMD - 01/07/2022 12:52 PM CDT Patient: INEZ [...] 07 11:04) 64 (JAN 07:01) 64 (JAN 07 11:01) Mon HR 65 (JAN 07:20) 57 (JAN 07 06:04) 75 (JAN 06 21:00) Resp Rate 18 (JAN 07:) 14 (JAN 07 06:00) 18 (JAN 06:00) SBP 130 (JAN 07 11:04) 124 (JAN 07 03:12) 134 (JAN 07 06:04) DBP 71 (JAN 07 11:04) 63 (JAN 07 03:12) 81 (JAN 07 06:04) MAP 85 (JAN 07:) 80 (JAN 07 03:12) 97 (JAN 07 06:04) SpO2 96 (JAN 07:20) 94 (JAN 06:01) 98 (JAN 06:00) General: No acute distress. Eye: Pupils are [...] december 2021 and that he is at [facility], knows correct age and . no tremor. [...] function. 01/07: creatinine improving. mentation better today. dc schmid and do PVR today. d/w dr starks, possible dc tomorrow if renal function continues to improve. time spent: 28 min discharge goals: monitor renal function anticipated discharge disposition: home hopefully tomorrow if creatinine < 6.0 Ana Tabor Hospitalist pager- [phone] Electronically signed by Talya, [facility] Conversion Dining Service Supervisor Cerner at 02/02/2023 2:01 PM CDT documented in this encounter Plan of Treatment Not on file documented as of this encounter Visit Diagnoses Not on filedocumented in this encounter
--- OUTSIDE RECORDS SUMMARY | 2025-04-25 13:48 | XMS_ITS | Encounter Summary ---
Author Organization [employer] ([place], [place], [place], [place]) Address [address] [place] [address] Care Team Providers Care Heavy Forger Helper Name Role Phone Unavailable Primary Care Provider Unavailabl e Encounter Details Date Type Department Care Team (Late st Contact Info) Description 01/08/2022 Transcribed Document [facility] [place] Family Medicine [address] [place] [address] ProviderCarlos MD [address] [place] [address] Social History Tobacco Use Types Packs/Day Years Used Date Smoking Tobacco: Never Assessed Sex and Gender Information Value Date Recorded Sex Assigned at Male 04/15/2022 4:33 PM CDT Legal Sex Male 4:33 PM CDT Gender Identity Male 04/15/2022 4:33 PM CDT Sexual Orientation Not on file documented as of this encounter Miscellaneous Notes * Cerner Conversion Note - Carlos Soria MD - 01/08/2022 11:05 AM CDT [facility] [place], [place] [id number] INEZ SHOOK JR :1955 Visit Time:01/03/2022 Your [...] you Where: [address] [place] [address]- Business (1) Follow Up with SINCERE BONILLA When 01/15/2022 03:15 PM EDT Comments PCP appt made, Bring discharge instructions with you Where: [address] [place] [address]- Medications What How Much When Instructions Next Dose hydrALAZINE (hydrALAZINE 25 mg oral tablet) 1 Tablet(s) Oral Two Times A Day Duration: 30 Day(s) Pickup at [facility] this evening Non Formulary (lab draw) See [...] improves and your are cleared by your permaculture contractor to resume higher dose. Pickup at [facility] this evening gabapentin (gabapentin 600 mg [...] release) Oral Every Day tomorrow Pharmacy Information [facility]: [address] [place] [address] [address] [place], [place] [id number] [phone] Take your medications faithfully. Do NOT skip [...] these instructions at home: Medicines ??? Take fcbm-uvr-uyuvgfs and prescription medicines only as told by [...] important. Where to find more information ??? Japanese Association of Kidney Patients: www.aakp.org ??? National Kidney Foundation: www.kidney.org ??? Japanese Kidney Fund: www.akfinc.org ??? [facility] [...] provider. Document Revised: 08/14/2020 Document Reviewed: 08/14/2020 [employer] Patient Education ?? 2020 [facility]. Heart Failure Action Plan A heart failure [...] Follow these instructions at home: ??? Take xrex-vrd-atlfipr and prescription medicines only as told by your health care provider. ??? Weigh yourself daily. Your target weight is lb ( kg). ? Call your health care provider if you gain more than lb ( kg) in a day, or more than lb ( kg) in one week. ??? Eat a heart-healthy diet. Work with a diet and it security specialist (dietitian) to create an eating plan that is best for you. ??? Keep all follow-up visits as told by your health care provider. This is important. Where to find more information ??? Japanese Heart Association: www.heart.org Summary ??? Follow the [...] provider. Document Revised: 09/17/2018 Document Reviewed: 11/14/2017 [employer] Patient Education ?? 2020 Else[employer] Inc. Chronic [...] these instructions at home: Medicines ??? Take htrs-xbn-abjvupi and prescription medicines only as told by [...] cannot use soap and water, use hand stock counter. ??? During flu season, avoid areas that [...] provider. Document Revised: 09/17/2018 Document Reviewed: 11/09/2017 [employer] Patient Education ?? 2020 [employer]. Carbohydrate Counting for Diabetes Mellitus, Adult [...] foods that contain carbohydrates: ??? Rice. ??? [place]. ??? Milk. ??? Strawberries. 2. Calculate how [...] snacks. Where to find more information ??? Japanese Diabetes Association: www.diabetes.org ??? Centers for Disease [...] provider. Document Revised: 10/04/2020 Document Reviewed: 10/05/2020 [employer] Patient Education ?? 2020 [facility]. Diabetes Mellitus and Skin Care Diabetes, also [...] sclerosis). ??? Brown or red, ring-shaped or gtxy-kwsu-jvflqk patches of skin on the ears or [...] provider. Document Revised: 07/10/2020 Document Reviewed: 07/24/2020 [employer] Patient Education ?? 2020 [employer]. Diabetes Mellitus and Nutrition, Adult When [...] Berries. Apples. Oranges. Peaches. Apricots. Plums. Grapes. [place]. Papaya. Pomegranate. Kiwi. Cherries. Vegetables Lettuce. Spinach. Leafy greens, including kale, chard, giovanni greens, and mustard greens. Beets. Cauliflower. Cabbage. Broccoli. Carrots. Green beans. Tomatoes. Peppers. Onions. Cucumbers. [place] sprouts. Grains Whole grains, such as whole-wheat [...] Do I need to meet with a rn diabetes educator? Do I need to meet with a dietitian? What number can I call if I have questions? When are the best times to check my blood glucose? Where to find more information: ??? [place] Diabetes Association: diabetes.org ??? Academy of Nutrition and Dietetics: www.eatright.org ??? National [place] of Diabetes and Digestive and Kidney Diseases: [...] provider. Document Revised: 09/11/2020 Document Reviewed: 09/11/2020 [employer] Patient Education ?? 2020 [facility]. gabapentin (GA ba PEN tin) Gralise, Horizant, [...] are a day sleeper or work a slot shift manager. Some people have thoughts about suicide while [...] may report side effects to FDA at 0-091-FOK-5943. What other drugs will affect gabapentin? Using gabapentin with other drugs that make you drowsy or slow your breathing can cause dangerous side effects or . Ask your doctor before using opioid medication, a sleeping pill, cold or allergy medicine, a muscle relaxer, or medicine for anxiety or seizures. Other drugs may affect gabapentin, including prescription and vfxp-nkw-krbcyda medicines, vitamins, and herbal products. Tell your [...] to ensure that the information provided by [employer]. ('[employer]') is accurate, up-to-date, and complete, but no guarantee is made to that effect. Drug information contained herein may be time sensitive. [employer] information has been compiled for use by healthcare practitioners and consumers in the [place] and therefore [employer] does not warrant that uses outside of the [place] are appropriate, unless specifically indicated otherwise. [employer] drug information does not endorse drugs, diagnose patients or recommend therapy. [employer] drug information is an informational resource designed [...] effective or appropriate for any given patient. [facility] does not assume any responsibility for any aspect of healthcare administered with the aid of information [facility] provides. The information contained herein is not intended to cover all possible uses, directions, precautions, warnings, drug interactions, allergic reactions, or adverse effects. If you have questions about the drugs you are taking, check with your doctor, nurse or pharmacist. Copyright 1252-1320 [facility]. Version: 17.. Revision Date: 11/13/2020. hydralazine (ju [...] may report side effects to FDA at 2-564-UAZ-6689. What other drugs will affect hydralazine? Tell your doctor about all your current medicines and any you start or stop using, especially: ?? diazoxide (an injectable blood pressure medication); or ?? an MAO inhibitor--isocarboxazid, linezolid, methylene blue injection, phenelzine, rasagiline, selegiline, tranylcypromine, and others. This list is not complete. Other drugs may interact with hydralazine, including prescription and lqht-ptg-yxplrji medicines, vitamins, and herbal products. Not all [...] to ensure that the information provided by [employer]. ('[employer]') is accurate, up-to-date, and complete, but no guarantee is made to that effect. Drug information contained herein may be time sensitive. [employer] information has been compiled for use by healthcare practitioners and consumers in the [place] and therefore [employer] does not warrant that uses outside of the [place] are appropriate, unless specifically indicated otherwise. [employer] drug information does not endorse drugs, diagnose patients or recommend therapy. [employer] drug information is an informational resource designed [...] effective or appropriate for any given patient. [employer] does not assume any responsibility for any aspect of healthcare administered with the aid of information [employer] provides. The information contained herein is not intended to cover all possible uses, directions, precautions, warnings, drug interactions, allergic reactions, or adverse effects. If you have questions about the drugs you are taking, check with your doctor, nurse or pharmacist. Copyright 4572-9143 [employer]. Version: 5.01. Revision Date: 10/28/2017. lisinopril (lyse [place] pril) Flakito, Marla, Zestril What is the most important information [...] have an allergic reaction if you are -Japanese. Call your doctor at once if you have: ?? a light-headed feeling, like you might pass out; ?? fever, sore throat; documented in this encounter Plan of Treatment Not on file documented as of this encounter Visit Diagnoses Not on filedocumented in this encounter
--- OUTSIDE RECORDS SUMMARY | 2025-04-25 13:48 | XMS_ITS | Encounter Summary ---
Author Organization [employer] ([place], [place], [place], [place]) Address [address] [place] [address] Care Team Providers Care Server Name Role Phone Unavailable Primary Care Provider Unavailabl e Encounter Details Date Type Department Care Team (Late st Contact Info) Description 01/08/2022 Transcribed Document [facility] [place] [address] [place] [address] ProviderCarlos MD [address] [place] [address] Social History Tobacco Use Types [...] Note - Carlos Soria MD - 01/08/2022 11:04 AM CDT Patient Education [...] Follow these instructions at home: ??? Take dpec-lie-anwfncf and prescription medicines only as told by your health care provider. ??? Weigh yourself daily. Your target weight is lb ( kg). ? Call your health care provider if you gain more than lb ( kg) in a day, or more than lb ( kg) in one week. ??? Eat a heart-healthy diet. Work with a diet and software quality specialist (dietitian) to create an eating plan that is best for you. ??? Keep all follow-up visits as told by your health care provider. This is important. Where to find more information ??? [place] Heart Association: www.heart.org Summary ??? Follow the [...] provider. Document Revised: 09/17/2018 Document Reviewed: 11/14/2017 [employer] Patient Education ? 2020 [employer]. Endocrinology Carbohydrate Counting for Diabetes Mellitus, [...] foods that contain carbohydrates: ??? Rice. ??? [place]. ??? Milk. ??? Strawberries. 2. Calculate how [...] snacks. Where to find more information ??? [place] Diabetes Association: www.diabetes.org ??? Centers for Disease [...] provider. Document Revised: 10/04/2020 Document Reviewed: 10/05/2020 [employer] Patient Education ? 2020 [employer]. Diabetes Mellitus and Skin Care Diabetes, also [...] sclerosis). ??? Brown or red, ring-shaped or iewn-bmfy-rbyhqz patches of skin on the ears or [...] provider. Document Revised: 07/10/2020 Document Reviewed: 07/24/2020 [employer] Patient Education ? 2020 [employer]. Diabetes Mellitus and Nutrition, Adult When [...] Carrots. Green beans. Tomatoes. Peppers. Onions. Cucumbers. [place] sprouts. Grains Whole grains, such as whole-wheat [...] Do I need to meet with a adaptive physical educator? Do I need to meet with a dietitian? What number can I call if I have questions? When are the best times to check my blood glucose? Where to find more information: ??? [place] Diabetes Association: diabetes.org ??? Academy of Nutrition and Dietetics: www.eatright.org ??? National [place] of Diabetes and Digestive and Kidney Diseases: [...] provider. Document Revised: 09/11/2020 Document Reviewed: 09/11/2020 [employer] Patient Education ? 2020 [employer]. Nephrology Acute Kidney Injury, Adult Acute kidney [...] these instructions at home: Medicines ??? Take ixsz-wwz-uryohch and prescription medicines only as told by [...] important. Where to find more information ??? [place]ese Association of Kidney Patients: www.aakp.org ??? National Kidney Foundation: www.kidney.org ??? [place]ese Kidney Fund: www.akfinc.org ??? [facility] [...] provider. Document Revised: 08/14/2020 Document Reviewed: 08/14/2020 [employer] Patient Education ? 2020 [employer]. Pulmonary Medicine Chronic Obstructive Pulmonary Disease Exacerbation [...] these instructions at home: Medicines ??? Take vpna-hdo-dzdnvjj and prescription medicines only as told by [...] cannot use soap and water, use hand pool nurse. ??? During flu season, avoid areas that [...] provider. Document Revised: 09/17/2018 Document Reviewed: 11/09/2017 [employer] Patient Education ? 2020 [employer]. documented in this encounter Plan of Treatment Not on file documented as of this encounter Visit Diagnoses Not on filedocumented in this encounter
--- OUTSIDE RECORDS SUMMARY | 2025-04-25 13:48 | XMS_ITS | Clinical Summary ---
Author Organization [facility] Address [address] [place] [address] Care Team Providers Care Feed Research Technician Name Role Phone Kaveh Ryan MD Primary Care Provider + [phone] Kalli Shipley MD Unavailable + [phone] Allergies Active Allergy Reactions Criticality Noted Date [...] the morning. 05/16/20 22 Active HYDROcodone-acetam inophen ([place]) 5-325 MG tablet 01/27/20 23 Active nitroglycerin [...] needed for erectile dysfunction. Active HYDROcodone-acetam inophen ([place]) 7.5-325 MG tablet Take 7.5 tablets (56.25 [...] (02/25/2022): Added automatically from request for surgery [id number] Thrombocytopenia Resolved Problems Problem Noted Date Diagnosed [...] Description 05/12/2025 10:40 AM EDT Office Visit [facility] [address] [place] [address] Juliann Adrian, MAJOR LEAGUE BASEBALL PLAYER [address] [address] Health Maintenance Due Date Last Done Comments [facility]-Depression Screening 1955 [facility]-Medicare Annual Wellness (AWV) 1955 [facility]-/Child/Adol SDOH Screenings 1955 Diabetes: Dental Exam 1965 [...] 2019 [facility]-Diabetes: Hemoglobin A1C 02/25/202307/2022, 01/30/2022, 10/15/2015 [id number] Vaccine ( season) 2024 07/21/2022, 09/09/2021, 01/16/2021, Additional history exists [facility]-Influenza Vaccine (#1) 06/19/202511/03, 10/20/2023, 10/29/2022, Additional history exists [facility]-Pneumococcal Vaccine: 50+ Years Completed 01/23/2021, 12/02/2019 [facility]-Hepatitis C Screening Completed 03/19/2022 [facility]-Obesity Intervention Completed 025, 08/05/2023, 02/26/2023, Additional [...] this topic Medical Devices Implanted Type Area Dish Carrier Device Identifier Shelf Expiration Date Model / Serial / Lot Graft Collagen 5x5cm Durepair Mater - [id number] Implanted:Qty: 1 on 02/26/2022 by Martin Banegas MD at [facility] [employer] (Tissue [id number] 07/18/2023 [id number] / / [id number] Cement Bone Pneum Mix 5cc Strl - [id number] Implanted:Qty: 1 on 02/26/2022 by Martin Banegas MD at [facility]-[id number] 12/16/2022 615.05 .[id number] / / [id number] Procedures Procedure Name Priority Date/Time Associated Diagnosis Comments HEPATITIS C ANTIBODY - ED W/REFLEX TO HCV QUANT PCR STAT 03/19/2022 10:48 AM EDT HEMOGLOBIN A1C Add-On 01/30/2022 8:46 PM EDT from Last 3 Months or Most Recently Relevant to Health Maintenance Results * [place] Hepatitis C Antibody (03/19/2022 10:48 AM EDT) Pathologist [facility] Hepatitis C Antibody Negative Negative 03/19/2022 12:52 PM EDT HEALTHCARE LAB Blood Venous blood specimen / Unknown Venipuncture / Unknown 03/19/2022 10:48 AM EDT 03/19/2022 11:14 AM EDT us Giles Gonzales MD LAB BLOOD ORDERABLES Radha alves Result [facility] [address] [place] [id number] * (ABNORMAL) Hemoglobin A1c (01/30/2022 8:46 PM EDT) Pathologist [facility] Hemoglobin A1c 6.0(H) <5.7 % 01/31/2022 4:03 [...] Adults <6.0% Children and Adolescents <7.5% Source: [place] Diabetes Association. Standards of medical care in diabetes,2017. Diabetes Care.2017:40 (suppl 1):S1-S135. HbA1c assay performed by an ion-exchange chromatography method that is certified traceable to the DCCT. Omid Steven MD LAB BLOOD ORDERABLES Final Result HEALTHCARE [facility] [address] [place] [address] from Last 3 Months or Most Recently [...] would not be sustained on a ventilator truck terminal manager. Question Answer Comments DNR determined on/before admission [...] of Healthcare Surrogate: Elias Maldonado Care Teams Feed Research Technician Relationship Specialty Start Date End Date Kaveh Ryan MD [address] [place] [address] PCP - General 05/28/22 Kalli Shipley MD [id number] [place] [address] Service Attending Neurology 05/28/22
--- OUTSIDE RECORDS SUMMARY | 2025-04-25 13:48 | XMS_ITS | Encounter Summary ---
Author Organization [employer] ([place], [place], [place], [place]) Address [address] [place] [address] Care Team Providers Care Warp Knitter Helper Name Role Phone Unavailable Primary Care Provider Unavailabl e Encounter Details Date Type Department Care Team (Late st Contact Info) Description 01/08/2022 Transcribed Document [facility] [place] [address] [place] [address] ProviderCarlos MD [address] [place] [address] Social History Tobacco Use Types [...] RN - INTERNATIONAL - 01/08/2022 6:49 EDT Electronically signed by Jayde Babin Conversion Rubber Moulding Machine Operator Cerner at 02/02/2023 2:04 PM CDT documented in this encounter Plan of Treatment Not on file documented as of this encounter Visit Diagnoses Not on filedocumented in this encounter
--- OUTSIDE RECORDS SUMMARY | 2025-04-25 13:48 | XMS_ITS | Encounter Summary ---
Author Organization [employer] ([place], [place], [place], [place]) Address [address] [place] [address] Care Team Providers Care Financial Services Consultant Name Role Phone Unavailable Primary Care Provider Unavailabl e Encounter Details Date Type Department Care Team (Late st Contact Info) Description 01/07/2022 Transcribed Document [facility] [place] [address] [place] [address] ProviderCarlos MD [address] [place] [address] Social History Tobacco Use Types Packs/Day Years Used Date Smoking Tobacco: Never Assessed Sex and Gender Information Value Date Recorded Sex Assigned at Male 04/15/2022 4:33 PM CDT Legal Sex Male 4:33 PM CDT Gender Identity Male 04/15/2022 4:33 PM CDT Sexual Orientation Not on file documented as of this encounter Miscellaneous Notes * Cerner Conversion Note - Carlos ProviderMD - 01/07/2022 12:21 PM CDT UM Authorization Entered On: 01/07/2022 12:22 EDT Performed On: 01/07/2022 12:21 EDT by ISAIAS NAVARRO RN Primary Insurance Authorization Authorization and Policy Numbers : Insurance 1 Health Plan: [employer] Policy Number: [id number] Authorization Number: Insurance Primary Name : [employer] Policy Number: [id number] Authorization Status-Primary : Awaiting callback Reference Number-Primary : [id number] Authorized Service Begin Date-Primary : 01/03/2022 EDT Authorization Comments-Primary : Clinicals faxed via [employer] for IP approval Historical Authorization Comments-Primary : Comment 1: AUTH SUBMITTED VIA [employer] /w CLINICALS ATTACHED (Olive Dolan RN 01/04/2022 15:27) ISAIAS NAVARRO RN - 01/07/2022 12:21 EDT Electronically signed by Talya [facility] Conversion Bandoleer Packer Cerner at 02/02/2023 1:51 PM CDT documented in this encounter Plan of Treatment Not on file documented as of this encounter Visit Diagnoses Not on filedocumented in this encounter
--- OUTSIDE RECORDS SUMMARY | 2025-04-25 13:48 | XMS_ITS | Encounter Summary ---
Author Organization [employer] ([place], [place], [place], [place]) Address [address] [place] [address] Care Team Providers Care Leather Tanner Name Role Phone Unavailable Primary Care Provider Unavailabl e Encounter Details Date Type Department Care Team (Late st Contact Info) Description 01/08/2022 Transcribed Document [facility] [place] [facility] [place] [address] ProviderCarlos MD [address] [place] [address] Social History Tobacco Use Types [...] Associated Diagnoses: None Author: ANA TORRES DO Results Review Admission Date: Admit Date 01/03/2022 [...] 14 mL/min/1.73m2 LOW 01/08/2022 09:26 Bun/Creatinine 21.0 PR 01/08/2022 09:26 eGFR NonAfrican 12 mL/min/1.73m2 LOW 01/08/2022 09:26 Creatinine Level 4.90 mg/dL PR 01/08/2022 09:26 Sodium Level 143 mmol/L 01/08/2022 09:26 Potassium Level 3.7 mmol/L 01/08/2022 09:26 Chloride Level 109 mmol/L 01/08/2022 09:26 Carbon Dioxide Level 22 mmol/L 01/08/2022 09:26 Anion Gap 16 01/08/2022 09:26 Blood Urea Nitrogen 103 mg/dL CRIT 01/08/2022 09:26 Glucose Level 137 mg/dL PR 01/08/2022 09:26 Albumin Level 2.5 Gram/dL LOW [...] type 2 dm - a1c 6.7 - [facility] [place] lcourse: Mr. Shook is a 66 year old male with history of CHF type unknown, HTN, INOCENTE, COPD who presented to outside hospital with one week of nausea and vomiting, there he was found ot have creatinine over 11 and was sent to [facility] for nephrology evaluation. Here IV [...]
--- OUTSIDE RECORDS SUMMARY | 2025-04-25 13:48 | XMS_ITS | Encounter Summary ---
Author Organization [employer] ([place], [place], [place], [place]) Address [address] [place] [address] Care Team Providers Care Manager Instrumentation Name Role Phone Unavailable Primary Care Provider Unavailabl e Encounter Details Date Type Department Care Team (Late st Contact Info) Description 01/07/2022 Transcribed Document [facility] [place] Medicine [address] [place] [address] ProviderCarlos MD [address] [place] [address] Social History Tobacco Use Types [...] Conversion Note - Historical ProviderMD - 01/07/2022 2:16 PM CDT On Going Discharge Planning Entered On: 01/07/2022 14:18 EDT Performed On: 01/07/2022 14:16 EDT by RODDY PHILLIPS RN - Tool GrinderNight Assistant Progress Note Discharge Arrangements : Patient Post-Acute Information Patient Name: INEZ SHOOK JR Gender: Male : [birth year] Age: 66 Years No Post-Acute Placement(s) Listed No Post-Acute Service(s) Listed No Cur[place] Referral(s) Listed Patient Discharge Goal : Home Is the Patient Meeting Medical Necessity : Yes Did you Attend Multidisciplinary Rounds? : Yes RODDY PHILLIPS RN - Tool Grinder - 01/07/2022 14:16 EDT Narrative Progress Note Narrative Progress Note : RRS Mod Day 01/20 Patient was admitted for renal failure. Hx CHF, COPD. Consults to neph. Order to discontinue his schmid catheter today. Per hospitalist note if his creatinine stays under 6 he can go home tomorrow 01/08. Probable discharge home with girlfriend to transport. DCP: home RODDY PHILLIPS RN - Tool Grinder - 01/07/2022 14:16 EDT documented in this encounter Plan of Treatment Not on file documented as of this encounter Visit Diagnoses Not on filedocumented in this encounter
--- OUTSIDE RECORDS SUMMARY | 2025-04-25 13:48 | XMS_ITS | Encounter Summary ---
Author Organization [employer] ([place], [place], [place], [place]) Address [address] [place] [address] Care Team Providers Care Switcher Name Role Phone Unavailable Primary Care Provider Unavailabl e Encounter Details Date Type Department Care Team (Late st Contact Info) Description 01/08/2022 Transcribed Document [facility] [place] [address] [place] [address] ProviderCarlos MD [address] [place] [address] Social History Tobacco Use [...] Conversion Note - Carlos ProviderMD - 01/08/2022 12:49 PM CDT Final Discharge Planning Entered On: 01/08/2022 12:50 EDT Performed On: 01/08/2022 12:49 EDT by RODDY PHILLIPS RN - Evs Tech Final Discharge Planning Discharge Arrangements : Patient [...] : Yes Discharge To Care Management : Home/Residential/Nursing Home or Self Care -01 RODDY PHILLIPS, RN - Evs Tech - 01/08/2022 12:49 EDT documented in this encounter Plan of Treatment Not on file documented as of this encounter Visit Diagnoses Not on filedocumented in this encounter
--- OUTSIDE RECORDS SUMMARY | 2025-04-25 13:48 | XMS_ITS | Encounter Summary ---
Author Organization [facility] Address [address] [place] [address] Care Team Providers Care Crabber Name Role Phone Kaveh Ryan MD Primary Care Provider + [phone] Kalli Shipley MD Unavailable + [phone] Reason for Visit * Reason Comments Med Refill Encounter Details Date Type Department Care Team (Late st Contact Info) Description 05/07/2023 [facility]ill [place] [facility] [address] [place] [address] Kalli Shipley MD [address] [place] [address] Social History Tobacco Use Types [...] [facility] [address] [place] [address] Juliann Adrian, ART PSYCHOTHERAPIST OR THERAPIST [address] [facility] [address] [place] [address] documented as of this encounter Visit Diagnoses Not on filedocumented in this encounter Additional Health Concerns Assessment Noted Time A fall risk assessment has been complete d for the patient 02/26/2023 9:15 AM EDT A Body Mass Index follow-up plan has been documented for the patient 02/26/2023 12:36 PM EDT documented as of this encounter Care Teams Crabber Relationship Specialty Start Date End Date Kaveh Ryan MD [address] [place] [address] PCP - General 05/28/22 Kalli Shipley MD [address] [facility] [address] [place] [address] Service Attending Neurology 05/28/22 documented as of this encounter
--- OUTSIDE RECORDS SUMMARY | 2025-04-25 13:48 | XMS_ITS | Encounter Summary ---
Author Organization [employer] ([place], [place], [place], [place]) Address [address] [place] [address] Care Team Providers Care Rubber Grinder Name Role Phone Unavailable Primary Care Provider Unavailabl e Encounter Details Date Type Department Care Team (Late st Contact Info) Description 01/07/2022 Transcribed Document [facility] [place] Medicine [facility] [place] [address] ProviderCarlos MD [facility] [place] [address] Social History Tobacco Use Types [...] Conversion Note - Carlos ProviderMD - 01/07/2022 12:22 PM CDT Patient: [...] Medical At risk for violence / IMO [id number] / Confirmed History of obstructive sleep apnea / IMO [id number] / Confirmed, Active Problems (8) At risk for violence Back pain COPD (chronic obstructive pulmonary disease) Coronary disease Diabetes GERD (gastroesophageal reflux disease) History of obstructive sleep apnea Renal failure Objective Intake and Output 24 hour intake VS/Measurements Vitals Signs (last 24 hrs) Last Charted Minimum Maximum Temp 98.1 (JAN 07 11:04) 97.6 (JAN 07 06:04) 98.1 (JAN 07 11:) Apical HR 64 (JAN 07 11:) 64 (JAN 07:) 64 (JAN 07:) Mon HR 65 (JAN 07) 57 (JAN 07 06:04) 75 (JAN 06:00) Resp Rate 18 (JAN 07) 14 (JAN 07 06:00) 18 (JAN 06:00) SBP 130 (JAN 07 11:04) 124 (JAN 07 03:12) 134 (JAN 07 06:04) DBP 71 (JAN 07 11:04) 63 (JAN 07 03:12) 81 (JAN 07 06:04) MAP 85 (JAN 07:) 80 (JAN 07 03:12) 97 (JAN 07:04) SpO2 96 (JAN 07) 94 (JAN 06:) [...]
--- OUTSIDE RECORDS SUMMARY | 2025-04-25 13:48 | XMS_ITS | Encounter Summary ---
Author Organization [employer] ([place], [place], [place], [place]) Address [address] [place] [address] Care Team Providers Care Health Associate Name Role Phone Unavailable Primary Care Provider Unavailabl e Encounter Details Date Type Department Care Team (Late st Contact Info) Description 01/08/2022 Transcribed Document [facility] [place] [address] [place] [address] ProviderCarlos MD [address] [place] [address] Social History Tobacco Use Types [...] Conversion Note - Carlos ProviderMD - 01/08/2022 2:24 PM CDT SAMINA BONILLA, [address] [place] [address] Re: INEZ SHOOK Date of Visit: 01/03/2022 [...] is strictly prohibited. Sincerely, ANA TORRES [address] [facility] [address] [place] [address] The following document(s) were included in the letter: January 08, 2022 10:37:00 EDT - (01/08/2022) Discharge Summary * documented in this encounter Plan of Treatment Not on file documented as of this encounter Visit Diagnoses Not on filedocumented in this encounter
--- NOTE | 2025-04-25 13:58 | XR_ITS ---
FINAL REPORT CLINICAL HISTORY: SOA/CP COMPARISON: 03/19/2025 FINDINGS: CHEST SINGLE VIEW: The heart size is normal. The mediastinum is normal. There is no focal infiltrate or edema. There are no pleural effusions. There is no pneumothorax. There is no osseous abnormality. IMPRESSION: No acute cardiopulmonary process Reviewed, Interpreted and Dictated by Nic Mancera MD Transcribed by Elsy Dominique Authenticated and [facility]
[2025-04-25 14:06] LABS: Hematocrit 39.5 % (42.0-52.0); Hemoglobin 13.1 g/dL (14.1-18.0); Immature Granulocytes % 0.9 %; Mean Corpuscular HGB Conc 33.2 g/dL (31.8-35.4); Mean Corpuscular Hemoglobin 30.7 pg (27.0-31.2); Mean Corpuscular Volume 92.5 fl (80-94); Nucleated Red Blood Cells % 0 %; Platelet Count 286 K/mm3 (142-424); Red Blood Count 4.27 M/mm3 (4.60-6.20); Red Cell Distribution Width-SD 52.1 fL; White Blood Count 5.4 K/mm3 (4.8-10.8)
--- NOTE | 2025-04-25 14:08 | ED_ITS ---
<Statement entered by Stacie Clifford MD - 05/02/25 23:26> I was consulted by the HORTENCIA, and we discussed the complexity of the problems being addressed. I approved the treatment and management plan for this patient's care in the emergency department, thus performing a substantive portion of the medical decision making. Stacie Clifford MD, REE, FACEP Discharge Plan Disposition Patient Disposition: Home, Self-Care Condition: Good Prescriptions Prescriptions: No Action ranolazine 1,000 mg tablet extended release 12 hr 1,000 mg PO BID 90 Days Qty: 180 3RF albuterol sulfate 90 mcg/actuation HFA aerosol inhaler 2 puff inhalation Q4-6H PRN (Reason: shortness of breath or wheezing) Qty: 18 5RF quetiapine 50 mg tablet 50 mg PO HS PRN (Reason: Insomnia) Qty: 60 2RF desvenlafaxine succinate [Pristiq] 25 mg tablet extended release 24 hr 25 mg PO DAILY Qty: 30 2RF fluticasone propionate [Flonase Allergy Relief] 50 mcg/actuation spray,suspension 1 spray intranasal BID Qty: 16 3RF Rx Instructions: administer into each nostril azelastine 137 mcg (0.1 %) spray,non-aerosol 1 spray intranasal BID Qty: 30 2RF Rx Instructions: administer into each nostril for 1 week sulfamethoxazole-trimethoprim [Bactrim DS] 800-160 mg tablet 1 tab PO BID Qty: 30 0RF metformin 500 mg tablet 500 mg PO BID 90 Days Qty: 180 4RF lacosamide 150 mg tablet 150 mg PO BID 90 Days Qty: 180 4RF levocetirizine 5 mg tablet 5 mg PO DAILY Qty: 120 4RF atorvastatin 80 mg tablet 80 mg PO DAILY 90 Days Qty: 90 4RF cholecalciferol (vitamin D3) 25 mcg (1,000 unit) capsule 25 mcg PO DAILY 90 Days Qty: 90 4RF metoprolol succinate 50 mg tablet extended release 24 hr 50 mg PO DAILY 90 Days Qty: 90 4RF benzonatate 100 mg capsule 100 mg PO TID PRN (Reason: cough) Qty: 30 1RF hydrocodone-acetaminophen 7.5-325 mg tablet 1 tab PO QID PRN (Reason: pain) Qty: 120 0RF nitroglycerin 0.4 mg tablet, sublingual 0.4 mg sublingual NEEDED PRN (Reason: Chest Pain) Qty: 14 0RF lamotrigine [Lamictal] 25 mg tablet 25 mg PO DAILY Qty: 42 0RF Rx Instructions: Take 1 tablet daily for 2 weeks, then increase to 2 tablets daily. If you develop a rash or itching, stop the medication and call the clinic. aspirin 81 MG tablet,chewable 81 mg PO DAILY clopidogrel 75 mg tablet 75 mg PO DAILY isosorbide mononitrate 30 mg Tablet Extended Release 24 Hr 30 mg PO DAILY 30 Days Qty: 30 0RF Referrals Follow up/Referrals: Malcolm Dickerson MD [Primary Care Provider, Family Practice] - See instructions Dez Toscano MD [Staff Physician, Cardiology] - See instructions Activity Restrictions/Add. Instructions Additional Instructions/Restrictions: Please return to the emergency department with any worsening signs or symptoms, please continue take all your medication as prescribed, please follow-up with your veterinary attendant, primary care doctor and other specialist as directed. Clinical Impressions Clinical Impression: Chest pain Instructions Patient Instructions: DI for Atypical Chest Pain, DI for Chest Pain Print Language Print Language: Burundian Discharge ED Provider: Stacie Clifford HPI General Chief Complaint: Chest Pain Stated Complaint: CP Time Seen by Provider: 04/25/25 13:58 Mode of Arrival: Wheelchair Source of Information: Patient and Spouse Description of Symptoms (Recalled from ER Triage Doc. by RN): pt is here for chest pain and dizziness and has been seen here recently for similar cc. pt is alox4 and is at bedside, they are tired and feel like they arent getting anywhere History of Present Illness HPI narrative: 69-year-old male presents to the emergency department with chest pain that started around 7 AM/7:30 AM this morning, describes it as an 8/8.5 out of 10, substernal nonradiating, patient has taken nitroglycerin x 2 at home with little to no relief of symptomatology, patient's pain is not improved with rest, he admits to shortness of breath as well as nausea, chronic dizziness, ear pain and congestion for the last several weeks, he has been on Bactrim p.o. antibiotic therapy and was diagnosed with sinusitis , several days ago. Patient denies any fever chills cough, denies any abdominal pain, no constipation no diarrhea no urinary type symptomatology, patient is a former smoker, currently utilizes smokeless tobacco, denies any alcohol or drug use, other past medical history is consistent with sensorineural hearing loss, T2DM, CAD status post 4 coronary artery stent placements, classic migraine, MDD, extraparametal syndrome/parkinsonian syndrome, COPD, carotid artery disease, hypertension, hyperlipidemia, he is on dual endplate therapy of Plavix and aspirin, INOCENTE, initial triage vitals are unremarkable. Related Data Home Medications ?Medication ?Instructions ?Recorded ?Confirmed aspirin 81 mg chewable tablet 81 mg PO DAILY 03/11/19 04/20/25 clopidogrel 75 mg tablet 75 mg PO DAILY 03/19/2501/10 Previous Rx's ?Medication ?Instructions ?Recorded ranolazine 1,000 mg 1,000 mg PO BID 90 days #180 tabs 09/22/24 tablet,extended release,12 hr metformin 500 mg tablet 500 mg PO BID 90 days #180 t abs 10/17/24 lacosamide 150 mg tablet 150 mg PO BID 90 days #180 t abs 10/31/24 levocetirizine 5 mg tablet 5 mg PO DAILY #120 tabs atorvastatin 80 mg tablet 80 mg PO DAILY 90 days #90 t abs 01/17/25 cholecalciferol (vitamin D3) 25 25 mcg PO DAILY 90 day s #90 caps 01/25/25 mcg (1,000 unit) capsule fluticasone propionate 50 1 spray intranasal BID #16 g laney 02/02/25 mcg/actuation nasal spray,suspension (Flonase Allergy Relief) azelastine 137 mcg (0.1 %) nasal 1 spray intranasal BI D #30 mL 03/10/25 spray metoprolol succinate 50 mg 50 mg PO DAILY 90 days #90 tabs 03/14/25 tablet,extended release 24 hr isosorbide mononitrate 30 mg 30 mg PO DAILY 30 days #3 0 tabs 03/22/25 tablet,extended release 24 hr albuterol sulfate 90 mcg/actuation 2 puff inhalation Q 4-6H PRN 03/30/25 aerosol inhaler shortness of breath or wheez ing #18 grams benzonatate 100 mg capsule 100 mg PO TID PRN cough #30 caps 04/05/25 hydrocodone 7.5 mg-acetaminophen 1 tab PO QID PRN pain #120 tabs 04/06/25 325 mg tablet nitroglycerin 0.4 mg sublingual 0.4 mg sublingual N EEDED PRN 04/14/25 tablet Chest Pain #14 tabs desvenlafaxine succinate 25 mg 25 mg PO DAILY #30 tabs 04/17/25 tablet,extended release 24 hr (Pristiq) quetiapine 50 mg tablet 50 mg PO HS PRN Insomnia #60 tabs 04/17/25 sulfamethoxazole 800 1 tab PO BID #30 tabs mg-trimethoprim 160 mg tablet (Bactrim DS) lamotrigine 25 mg tablet (Lamictal) 25 mg PO DAILY #42 tabs 04/25/25 Allergies Allergy/AdvReac Type Severity Reaction Status Date / Time No Known Allergies Allergy Verified 04/20/25 15:10 [facility] Disclaimer: The information contained in this section may have been updated after the patient was seen, as this information can be updated by other users. Medical History Sinusitis Hyperkalemia Hyponatremia Chest pain Sinusitis, acute Daytime somnolence History of substance abuse History of alcohol abuse Anemia COVID-19 Thrombocytopenia Seizure BMI 31.0-31.9,adult Enceph/encephmye oth dis Fall CHF (congestive heart failure) Obesity (BMI 30-39.9) Cigarette smoker 40 pack years, quit in 2014 Diabetes SNHL (sensorineural hearing loss) Fluid level behind tympanic membrane of both ears Worsening headaches Hearing loss Poor balance Elevated serum creatinine Decreased GFR SOB (shortness of breath) on exertion Angina pectoris Elevated left ventricular end-diastolic pressure (LVEDP) Colon cancer screening Abnormal findings on diagnostic imaging of heart and coronary circulation Typical angina Diastolic dysfunction Encephalopathy chronic Major depressive disorder Lesion of brain Acute renal failure Chest pain Dyspnea Palpitations Sinus tachycardia Vitamin D deficiency Orthopnea COPD exacerbation Constipation Abdominal pain Near syncope Headache Lightheadedness SOB (shortness of breath) Other senior care (current) drug therapy Chest pain, atypical CAD (coronary artery disease) Acute exacerbation of chronic low back pain Carotid artery disease Hypertensive disorder Hyperlipidemia Coronary arteriosclerosis Surgical History History of cardiac catheterization Stented coronary artery Family History Other Coronary artery disease Diabetes Heart attack Hyperlipidemia Hypertension No significant family history Stroke Social History Smoking Status: Former smoker tobacco type: cigarettes packs per day: 1 years smoked: 40 how long ago did patient quit smokin years ago second hand exposure: No alcohol intake: former counseling provided: provider counseling substance use type: denies use current occupational status: retired Travel in the last 8 weeks?: None household members: significant other housing: house number of children: 3 current occupational exposures/hazards: No caffeine: Yes Have you lived/traveled outside US in past 30 days?: No Contact w/someone who lives/traveled outside US past 30 days?: No Exposure to someone with infectious disease in past 14 days?: No Do you have a fever (greater than 100.4 F or 38 C)?: No Have you tested positive for COVID-19?: No Exposed to someone with COVID-19 in past 14 days?: No Do you have a sore throat?: No Do you have a cough?: No Do you have any weakness?: No Do you have any diarrhea?: No Are you experiencing any unusual bleeding?: No Do you have any muscle aches/pain?: No Do you have any abdominal pain?: No Are you experiencing loss of taste or smell?: No Other Medical History Have you received the Flu Vaccine for this season: No Have you received the Pneumonia Vaccine: Yes ROS Obtained: Yes All systems reviewed & no additional complaints except as documented Physical Exam General General appearance: alert and in no apparent distress Head Head exam: atraumatic and normocephalic Eye Eye exam: Present normal appearance, PERRL and EOMI Neck Neck exam: Present full ROM; Absent meningismus Chest Chest inspection: Present normal inspection; Absent tenderness Respiratory Respiratory exam: Absent respiratory distress, wheezes, stridor, accessory muscle use or prolonged expiratory phase Cardiovascular Cardiovascular exam: Present normal rhythm and other (Pulses equal and symmetric in bilateral upper and lower extremities) Abdominal Exam Abdominal exam: Absent distention Extremities Exam Extremities exam: Absent edema Neurological Exam Neurological exam: Present alert Psychiatric Psychiatric exam: Present normal affect Skin Skin exam: Present warm and dry HEART Score HEART Score HEART Score assessment performed?: Yes History (anamnesis): Slightly suspicious ECG: Normal Age: >65 years Risk factors: 1-2 risk factors Troponin: </= normal limit HEART Score: 3 Critical Care Critical Care Time Critical Care Time: No Medical Decision Making Medical Records Medical records reviewed: Yes I reviewed the patient's medical records. Taco Inquiry Pt receiving controlled substance: No Taco was queried for this patient: No Vital Signs Vital Signs: 04/25/25 13:40 04/25/25 13:48 04/25/25 14:05 Temperature 97.9 F Temperature Source Oral Pulse Rate 60 62 Pulse Rate [Left Radial] 64 Respiratory Rate 20 Blood Pressure 134/77 112/67 Blood Pressure [Right Arm] 134/77 Blood Pressure Mean [Right Arm] 96 02 Sat by Pulse Oximetry 98 97 98 Oxygen Delivery Method Room Air Nasal Cannula Oxygen Flow Rate (LPM) 2 04/25/25 14:35 04/25/25 15:05 04/25/25 15:30 Temperature Temperature Source Pulse Rate 60 59 L 55 L Pulse Rate [Left Radial] Respiratory Rate 14 Blood Pressure 111/66 114/71 111/66 Blood Pressure [Right Arm] Blood Pressure Mean [Right Arm] 02 Sat by Pulse Oximetry 99 96 98 Oxygen Delivery Method Room Air Oxygen Flow Rate (LPM) Lab Data Lab results reviewed: Yes I reviewed the patient's lab results. Labs: Lab Results 04/25/25 13:40: WBC 5.4, RBC 4.27 L, Hgb 13.1 L, Hct 39.5 L, MCV 92.5, MCH 30.7, MCHC 33.2, RDW 15.4, Plt Count 286, MPV 9.8, Neut % (Auto) 50.5, Lymph % (Auto) 30.2, Harding % (Auto) 14.3 H, Eos % (Auto) 3.2, Baso % (Auto) 0.9, Neut # (Auto) 2.7, Lymph # (Auto) 1.6, Harding # (Auto) 0.8, Eos # (Auto) 0.2, Baso # (Auto) 0.1, PT 10.6, INR 0.95, D-Dimer 0.54 H, Sodium 135 L, Potassium 5.2 H, Chloride 95 L, Carbon Dioxide 26, Anion Gap 19.2 H, BUN 13, Creatinine 1.20, Estimated Creat Clear 70, Estimated GFR 60, Est GFR ( Amer) 72, Glucose 95, Calcium 9.9, Total Bilirubin 0.4, AST 31, ALT 14, Alkaline Phosphatase 36 L, Total Creatine Kinase 64, Troponin I < 0.01, NT-Pro-B Natriuret Pep 280 H, Total Protein 7.5, Albumin 4.7, Globulin 2.8, Albumin/Globulin Ratio 1.7 04/25/25 15:32: Troponin I < 0.01 04/25/25 13:40 04/25/25 13:40 Response Orders (Tests/Meds): ED MEDICATIONS Discontinued Medications Generic Name Dose Route Start Last Admin Trade Name Mode PRN Reason Stop Dose Admin Morphine Sulfate 4 mg 04/25/25 14:07 04/25/25 14:38 Morphine 4mg/Ml Syringe IV 04/25/25 14:08 4 mg ONCE ONE Administration Ondansetron HCl 4 mg 04/25/25 14:07 04/25/25 14:38 Ondansetron 4mg/2ml Vial IV 04/25/25 14:08 4 mg ONCE ONE Administration ORDERS Category Date Time Status XR chest portable Stat Exams 04/25/25 13:58 Completed CK [Creatine Kinase] Stat Lab 04/25/25 13:40 Completed Complete Blood Count Auto Diff Stat Lab 04/25/25 13:40 Completed Comprehensive Metabolic Panel Stat Lab 04/25/25 13:40 Completed D-Dimer Stat Lab 04/25/25 13:40 Completed NT Pro Brain Natriuretic Pep. Stat Lab 04/25/25 13:40 Completed PT INR [Prothrombin Time INR] Stat Lab 04/25/25 13:40 Completed Troponin I Q3H Lab 04/25/25 15:32 Completed Troponin I Q3H Lab 04/25/25 20:00 Ordered Troponin I Stat Lab 04/25/25 13:40 Completed MDM Narrative Medical Decision Narrative: 69-year-old male presents emergency department with chest pain, differential diagnose include but not limited to, pneumothorax, PE, ACS, costochondritis, panic attack, anxiety reaction, pneumonia, acute bronchitis, cardiac arrhythmia, electrolyte disturbance among others. I discussed his case with attending physician Dr. Clifford Obtain basic laboratory studies, chest x-ray, EKG, CK level, D-dimer, proBNP, PT/INR, troponin, will give 4 mg IV morphine for pain and 4 mg IV Zofran for nausea. CBC unremarkable CMP is notable for negative initial troponin at less than 0.01, proBNP is mildly elevated at 280, Coag within normal limits. D-dimer is minimally evaded at 0.54, however utilizing years criteria, and age- adjusted D-dimer, negative for PE. Reviewed the patient's chest x-ray along the corresponding radiologic report, no acute cardiopulmonary process. Repeat troponin within normal limits. Reexamination of the patient at approximately 4:15 PM, patient is currently chest pain-free, has remained hemodynamically stable at this time in the emergency department, I recommend follow-up with PCP, veterinary attendant other providers as directed, patient was given strict ED return precautions, heart score 3, patient will continue with medication as prescribed. Patient family voiced understanding and agreed with current discharge plan/treatment plan.
[2025-04-25 14:12] LABS: Alanine Aminotransferase 14 U/L (12-78); Albumin Level 4.7 g/dl (3.5-5.0); Albumin/Globulin Ratio 1.7 (1.1-1.8); Alkaline Phosphatase 36 U/L (38-126); Anion Gap 19.2 mEq/L (5-15); Aspartate Amino Transferase 31 U/L (17-59); Bilirubin,Total 0.4 mg/dl (0.2-1.3); Blood Urea Nitrogen 13 mg/dl (9-20); Calcium 9.9 mg/dl (8.4-10.2); Carbon Dioxide 26 mmol/L (22.0-30.0); Chloride 95 mmol/L (98-107); Creatine Kinase 64 U/L (55-170); Creatinine Clearance Estimated 70 mL/min (50-200); Creatinine,Serum 1.20 mg/dl (0.66-1.25); Estimated Glomerular Filt Rate 60 ml/min (>60); GFR (African American) 72 ML/MIN (>60); Globulin 2.8 g/dL (1.3-3.2); Glucose 95 mg/dl (74-100); Potassium 5.2 mmoL/L (3.5-5.1); Sodium 135 mmol/L (136-145); Total Protein,Serum 7.5 g/dl (6.3-8.2)
[2025-04-25 14:24] LABS: NT Pro Brain Natriuretic Pep. 280 pg/mL (0-125)
[2025-04-25 14:26] LABS: Troponin I < 0.01 ng/ml (0.00-0.034)
[2025-04-25] MEDS: ONDANSETRON 4MG/2ML VIAL 4 MG IV (14:38)
[2025-04-25] MEDS: MORPHINE 4MG/ML SYRINGE 4 MG IV (14:38)
[2025-04-25 14:41] LABS: INR 0.95 (0.9-1.1); Prothrombin Time 10.6 seconds (10.1-12.5)
--- OUTSIDE RECORDS SUMMARY | 2025-04-25 14:47 | XMS_ITS | CCD ---
Author Organization Unknown Care Team Providers Care Building Mover Name Role Phone Unavailable Primary Care Provider Unavailabl e Unavailable Chronic Care Management Unavaila ble Summary Purpose DataExchange Insurance Providers Payer name Policy type / Coverage type Covered constitution party ID Effective Begin Date Effective End Date [facility] [id number] Unknown Unknown Family History Family History data not found Medication Administered No Medication Administered data Reason For Visit No Reason For Visit data Medical Equipment No Medical Equipment data Advance Directives No Advance Directive data
--- OUTSIDE RECORDS SUMMARY | 2025-04-25 14:48 | XMS_ITS | CCD ---
Author Organization Unknown Care Team Providers Care Sustainability Analyst Name Role Phone Unavailable Primary Care Provider Unavailabl e Unavailable Chronic Care Management Unavaila ble Summary Purpose DataExchange Insurance Providers Payer name Policy type / Coverage type Covered alliance party ID Effective Begin Date Effective End Date [facility] [id number] Unknown Unknown Family History Family History data not found Medication Administered No Medication Administered data Reason For Visit No Reason For Visit data Medical Equipment No Medical Equipment data Advance Directives No Advance Directive data
[2025-04-25 14:59] LABS: D-Dimer 0.54 ug/mL (0.0-0.5)
[2025-04-25 16:11] LABS: Troponin I < 0.01 ng/ml (0.00-0.034)
== END 2025-04-25 16:27 | disposition home or self-care (01) ==
PROVIDERS: Physician Assistant; Emergency Provider Student in an Organized Health Care Education/Training Program; PCP Family Medicine
DX: R07.9 Chest pain, unspecified (principal); R06.02 Shortness of breath; R11.0 Nausea; Z87.891 Personal history of nicotine dependence
CPT/HCPCS: 71045; 80053; 82550; 83880; 84484; 85025; 85378; 85610; 93005; 96374; 96375; 99285; J2270; J2405

== ENCOUNTER 2025-05-05 09:43 | Outpatient (CLI) | payer MEDICARE, SELFPAY ==
--- OUTSIDE RECORDS SUMMARY | 2025-05-05 09:50 | XMS_ITS | Encounter Summary ---
Author Organization [employer] ([place], [place], [place], [place]) Address [address] [place] [address] Care Team Providers Care Revenue Research Analyst Name Role Phone Unavailable Primary Care Provider Unavailabl e Encounter Details Date Type Department Care Team (Late st Contact Info) Description 01/05/2022 Transcribed Document [facility] [place] [address] [place] [address] ProviderCarlos MD [address] [place] [address] Social History Tobacco Use Types [...] Historical ProviderMD - 01/05/2022 2:00 AM CDT Foot Piece Assembler Details Entered On: 01/05/2022 0:20 EDT Performed [...]
--- OUTSIDE RECORDS SUMMARY | 2025-05-05 09:50 | XMS_ITS | Encounter Summary ---
Author Organization [employer] ([place], [place], [place], [place]) Address [address] [place] [address] Care Team Providers Care Ethylbenzene Converter Helper Name Role Phone Unavailable Primary Care Provider Unavailabl e Encounter Details Date Type Department Care Team (Late st Contact Info) Description 01/04/2022 Transcribed Document [facility] [place] [address] [place] [address] ProviderCarlos MD [address] [place] [address] Social History Tobacco Use Types [...] 01/04/2022 10:16 EDT by Mikaela Mendoza Patient Astronaut Mission Specialist Phan Phone Call for Consults Consult Phone Call/Page Attempt : First call Consult Reason : ZAHRA Provider Service Notified Name : Nephrology Physician Returning Call : SEBASTIÁN RUTH [facility] Consult, Additional Information : Consult called on 01/04/2022 spoke with Sebastián Montanez. is aware of the consult and pt is on his list. Mikaela Mendoza, Patient Astronaut Mission Specialist I - 01/04/2022 10:49 EDT documented in this encounter Plan of Treatment Not on file documented as of this encounter Visit Diagnoses Not on filedocumented in this encounter
--- OUTSIDE RECORDS SUMMARY | 2025-05-05 09:50 | XMS_ITS | Encounter Summary ---
Author Organization [employer] ([place], [place], [place], [place]) Address [address] [place] [address] Care Team Providers Care Home Health Speech Therapist Name Role Phone Unavailable Primary Care Provider Unavailabl e Encounter Details Date Type Department Care Team (Late st Contact Info) Description 01/08/2022 Transcribed Document [facility] [place] [facility] [place] [address] ProviderCarlos MD [address] [place] [address] Social History Tobacco Use Types [...] On: 01/08/2022 14:03 EDT by Angelique Joyce, Children'S Choir Director Primary Insurance Authorization Authorization and Policy Numbers : Insurance 1 Health Plan: [employer] Policy Number: [id number] Authorization Number: Insurance Primary Name : [employer] - Policy Number: [id number] Authorization Status-Primary : Drg approved Auth/Referral Contact Name-Primary : DC Reference Number-Primary : [id number] Authorization Number-Primary : [id number] Number of Days Authorized-Primary : 5 Day(s) Authorized Service Begin Date-Primary : 01/03/2022 EDT Authorized Service End Date-Primary : 01/08/2022 EDT Authorization Comments-Primary : Authorized per fax 01/08/22 @ 1237. Approved DRG inpatient length of stay 01/03 - 01/09. Historical Authorization Comments-Primary : Comment 1: Clinicals faxed via [employer] for IP approval (ISAIAS NAVARRO RN 01/07/2022 12:21) Comment 2: AUTH SUBMITTED VIA [employer] /w CLINICALS ATTACHED (Olive Dolan RN 01/04/2022 15:27) Angelique Joyce, Children'S Choir Director - 01/08/2022 14:03 EDT documented in this encounter Plan of Treatment Not on file documented as of this encounter Visit Diagnoses Not on filedocumented in this encounter
--- OUTSIDE RECORDS SUMMARY | 2025-05-05 09:50 | XMS_ITS | Encounter Summary ---
Author Organization [email or web address] ([place], [place], [place], [place]) Address [address] [place] [address] Care Team Providers Care Perl Software Engineer Name Role Phone Unavailable Primary Care Provider Unavailabl e Encounter Details Date Type Department Care Team (Late st Contact Info) Description 01/03/[address] [facility] [place] [facility] [place] [address] [place] [address] Social History Tobacco Use Types [...] 01/05/2022 0:18 EDT Electronically signed by Talya [facility] Conversion Foreign Student Adviser Teacher Cerner at 02/02/2023 1:49 PM CDT documented in this encounter Plan of Treatment Not on file documented as of this encounter Visit Diagnoses Not on filedocumented in this encounter
--- OUTSIDE RECORDS SUMMARY | 2025-05-05 09:50 | XMS_ITS | Encounter Summary ---
Author Organization [employer] ([place], [place], [place], [place]) Address [address] [place] [address] Care Team Providers Care Facilities Plant Engineer Name Role Phone Unavailable Primary Care Provider Unavailabl e Encounter Details Date Type Department Care Team (Late st Contact Info) Description 01/08/2022 Transcribed Document [facility] [place] [address] [place] [address] ProviderCarlos MD [address] [place] [address] Social History Tobacco Use [...]
--- OUTSIDE RECORDS SUMMARY | 2025-05-05 09:50 | XMS_ITS | Encounter Summary ---
Author Organization [employer] ([place], [place], [place], [place]) Address [address] [place] [address] Care Team Providers Care Electronics Computer Mechanic Name Role Phone Unavailable Primary Care Provider Unavailabl e Encounter Details Date Type Department Care Team (Late st Contact Info) Description 01/07/2022 Transcribed Document [facility] [place] [address] [place] [address] ProviderCarlos MD [address] [place] [address] Social History Tobacco Use Types [...] 14:16 EDT by RODDY PHILLIPS RN - Cafeteria Counter AttendantPaper Cone Maker Progress Note Discharge Arrangements : Patient Post-Acute Information Patient Name: INEZ SHOOK JR Gender: Male : [birth year] Age: 66 Years No Post-Acute Placement(s) Listed No Post-Acute Service(s) Listed No Curaspan Referral(s) Listed Patient Discharge Goal : Home Is the Patient Meeting Medical Necessity : Yes Did you Attend Multidisciplinary Rounds? : Yes RODDY PHILLIPS RN - Cafeteria Counter Attendant - 01/07/2022 14:16 EDT Narrative Progress Note Narrative Progress Note : RRS Mod Day 01/20 Patient was admitted for renal failure. Hx CHF, COPD. Consults to neph. Order to discontinue his schmid catheter today. Per hospitalist note if his creatinine stays under 6 he can go home tomorrow 01/08. Probable discharge home with girlfriend to transport. DCP: home RODDY PHILLIPS RN - Cafeteria Counter Attendant - 01/07/2022 14:16 EDT documented in this encounter Plan of Treatment Not on file documented as of this encounter Visit Diagnoses Not on filedocumented in this encounter
--- OUTSIDE RECORDS SUMMARY | 2025-05-05 09:50 | XMS_ITS | Encounter Summary ---
Author Organization [employer] ([place], [place], [place], [place]) Address [address] [place] [address] Care Team Providers Care Automated Process Operator Name Role Phone Unavailable Primary Care Provider Unavailabl e Encounter Details Date Type Department Care Team (Late st Contact Info) Description 01/08/2022 Transcribed Document [facility] [place] [address] [place] [address] ProviderCarlos MD [address] [place] [address] Social History Tobacco Use Types Packs/Day Years [...]
--- OUTSIDE RECORDS SUMMARY | 2025-05-05 09:50 | XMS_ITS | Encounter Summary ---
Author Organization [employer] ([place], [place], [place], [place]) Address [address] [place] [address] Care Team Providers Care Product Development Intern Name Role Phone Unavailable Primary Care Provider Unavailabl e Encounter Details Date Type Department Care Team (Late st Contact Info) Description 01/05/2022 Transcribed Document [facility] [place] [facility] [place] [address] ProviderCarlos MD [address] [place] [address] Social History Tobacco Use Types [...] (DEC 18) Radiology Results (Last 48 hours) [id number] -- 01/03/2022 20:35 US Renal Comp (01/04/2022 [...] when ZAHRA resolved. Ana Tabor Hospitalist pager- [phone] Electronically signed by Jayde Babin Conversion Powdered Sugar Pulverizer Operator Cerner at 02/02/2023 2:05 PM CDT documented in this encounter Plan of Treatment Not on file documented as of this encounter Visit Diagnoses Not on filedocumented in this encounter
--- OUTSIDE RECORDS SUMMARY | 2025-05-05 09:50 | XMS_ITS | Encounter Summary ---
Author Organization [employer] ([place], [place], [place], [place]) Address [address] [place] [address] Care Team Providers Care Die Repairer Stamping Name Role Phone Unavailable Primary Care Provider Unavailabl e Encounter Details Date Type Department Care Team (Late st Contact Info) Description 01/06/2022 Transcribed Document [facility] [place] [address] [place] [address] ProviderCarlos MD [address] [place] [address] Social History Tobacco Use Types [...] Historical ProviderMD - 01/06/2022 2:00 AM CDT Meteorology Professor Details Entered On: 01/06/2022 2:10 EDT Performed [...]
--- OUTSIDE RECORDS SUMMARY | 2025-05-05 09:50 | XMS_ITS | Encounter Summary ---
Author Organization [employer] ([place], [place], [place], [place]) Address [address] [place] [address] Care Team Providers Care Plastic Molding Operator Name Role Phone Unavailable Primary Care Provider Unavailabl e Encounter Details Date Type Department Care Team (Late st Contact Info) Description 01/04/2022 Transcribed Document [facility] [place] [facility] [place] [address] ProviderCarlos MD [address] [place] [address] Social History Tobacco Use Types [...] when ZAHRA resolved. Mirtha Tabor Hospitalist pager- [phone] documented in this encounter Plan of Treatment Not on file documented as of this encounter Visit Diagnoses Not on filedocumented in this encounter
--- OUTSIDE RECORDS SUMMARY | 2025-05-05 09:50 | XMS_ITS | Encounter Summary ---
Author Organization [employer] ([place], [place], [place], [place]) Address [address] [place] [address] Care Team Providers Care Granulator Operator Name Role Phone Unavailable Primary Care Provider Unavailabl e Encounter Details Date Type Department Care Team (Late st Contact Info) Description 01/06/2022 Transcribed Document [facility] [place] [facility] [place] [address] ProviderCarlos MD [facility] [place] [address] Social History Tobacco Use Types [...] Medical At risk for violence / IMO [id number] / Confirmed History of obstructive sleep apnea / IMO [id number] / Confirmed, Active Problems (8) At risk [...]
--- OUTSIDE RECORDS SUMMARY | 2025-05-05 09:50 | XMS_ITS | Clinical Summary ---
Author Organization [facility] Address [address] [place] [address] Care Team Providers Care Pathology Laboratory Technologist Name Role Phone Kaveh Ryan MD Primary Care Provider + [phone] Kalli Shipley MD Unavailable + [phone] Allergies Active Allergy Reactions Criticality Noted Date [...] the morning. 05/16/20 22 Active HYDROcodone-acetam inophen ([place]) 5-325 MG tablet 01/27/20 23 Active nitroglycerin [...] needed for erectile dysfunction. Active HYDROcodone-acetam inophen ([place]) 7.5-325 MG tablet Take 7.5 tablets (56.25 [...] (02/25/2022): Added automatically from request for surgery [id number] Thrombocytopenia Resolved Problems Problem Noted Date Diagnosed [...] Immunizations Immunization Administration Dates Next Due Influenza, High-dose, Split Virus, Trivalent, Injectable, preservative free 11/03/2024,09/06/2021,10/24/2020 Influenza, high-dose, quadrivalent 10/20,10/29/2022,09/06/2021,10/24 Influenza, injectable, quadrivalent 12/02/2019,0 10/30/2017 Influenza, injectable, quadr ivalent, preservative free 10/25/2018 Influenza, seasonal, injectable 10/30/2017 Pneumococcal [...] Description 05/12/2025 10:40 AM EDT Office Visit [facility] [address] [place] [address] Juliann Adrian, MARKETING CONSULTANT [address] [address] Health Maintenance Due Date Last [...] 2019 UKY-Diabetes: Hemoglobin A1C 02/25/202307/2022, 01/30/2022, 10/15/2015 [id number] Vaccine (5 - 2023- season) 2024 07/21/2022, 09/09/2021, 01/16/2021, Additional history [...] this topic Medical Devices Implanted Type Area Turbine Subassembler Device Identifier Shelf Expiration Date Model / Serial / Lot Graft Collagen 5x5cm Durepair Mater - [id number] Implanted:Qty: 1 on 02/26/2022 by Martin Banegas MD at [facility] [employer] (Tissue [id number] 07/18/2023 [id number] / / [id number] Cement Bone Pneum Mix 5cc Strl - [id number] Implanted:Qty: 1 on 02/26/2022 by Martin Banegas MD at [facility]-[id number] 12/16/2022 615.05 .01S / / [id number] Procedures Procedure Name Priority Date/Time Associated Diagnosis Comments HEPATITIS C ANTIBODY - ED W/REFLEX TO HCV QUANT PCR STAT 03/19/2022 10:48 AM EDT HEMOGLOBIN A1C Add-On 01/30/2022 8:46 PM EDT from Last 3 Months or Most Recently Relevant to Health Maintenance Results * [place] Hepatitis C Antibody (03/19/2022 10:48 AM EDT) Hepatitis C Antibody Negative Negative 03/19/2022 12:52 PM EDT [facility] Blood Venous blood specimen / Unknown Venipuncture / Unknown 03/19/2022 10:48 AM EDT 03/19/2022 11:14 AM EDT us Giles Gonzales MD LAB BLOOD ORDERABLES Radha alves Result [facility] [address] [place] [address] * (ABNORMAL) Hemoglobin A1c (01/30/2022 8:46 PM EDT) Hemoglobin A1c 6.0(H) <5.7 % 01/31/2022 4:03 PM EDT [facility] Blood Venous blood specimen / [...] Adults <6.0% Children and Adolescents <7.5% Source: [place] Diabetes Association. Standards of medical care in diabetes,2017. Diabetes Care.2017:40 (suppl 1):S1-S135. HbA1c assay performed by an ion-exchange chromatography method that is certified traceable to the DCCT. Omid Steven MD LAB BLOOD ORDERABLES Final Result [facility] [address] [place] [address] from Last 3 Months or Most Recently [...] would not be sustained on a ventilator assistant accounting manager. Question Answer Comments DNR determined on/before [...] of Healthcare Surrogate: Elias Maldonado Care Teams Pathology Laboratory Technologist Relationship Specialty Start Date End Date Kaveh Ryan MD [address] [place] [id number] PCP - General 05/28/22 Kalli Shipley MD [address] [phone] Service Attending Neurology 05/28/22
--- OUTSIDE RECORDS SUMMARY | 2025-05-05 09:50 | XMS_ITS | Encounter Summary ---
Author Organization [employer] ([place], [place], [place], [place]) Address [address] [place] [address] Care Team Providers Care Vocational Coordinator Name Role Phone Unavailable Primary Care Provider Unavailabl e Encounter Details Date Type Department Care Team (Late st Contact Info) Description 01/06/2022 Transcribed Document [facility] [place] [address] [place] [address] ProviderCarlos MD [address] [place] [address] Social History Tobacco Use Types [...] (JAN 03) Radiology Results (Last 48 hours) [id number] -- 01/03/2022 20:35 CR Abdomen 1 Vw [...] in 2 days. Ana Tabor Hospitalist pager- [phone] Electronically signed by Talya [facility] Conversion Brush Material Preparer Cerner at 02/02/2023 1:42 PM CDT documented in this encounter Plan of Treatment Not on file documented as of this encounter Visit Diagnoses Not on filedocumented in this encounter
--- OUTSIDE RECORDS SUMMARY | 2025-05-05 09:50 | XMS_ITS | Encounter Summary ---
Author Organization [employer] ([place], [place], [place], [place]) Address [address] [place] [address] Care Team Providers Care Motion Graphics Designer Name Role Phone Unavailable Primary Care Provider Unavailabl e Encounter Details Date Type Department Care Team (Late st Contact Info) Description 01/08/2022 Transcribed Document [facility] [place] [facility] [place] [address] ProviderCarlos MD [address] [place] [address] Social History Tobacco Use Types [...] On: 01/08/2022 8:33 EDT by Celia Rodriguez, HANDLE SEWER Patient Resource [facility] Provider Status : EST Other Established Provider Name : Kaveh Ryan Patient Phone Number : [phone] Patient Insurance Type : Medicaid (ex. Well[employer], [...] at ED : Other Primary Language : Amharic [facility] Comment : PCP and NEPH appts made Follow Up Needed : No Celia Rodriguez, HANDLE SEWER - 01/08/2022 8:33 EDT Electronically signed by [facility] Conversion Business Objects Cerner at 02/02/2023 2:06 PM CDT documented in this encounter Plan of Treatment Not on file documented as of this encounter Visit Diagnoses Not on filedocumented in this encounter
--- OUTSIDE RECORDS SUMMARY | 2025-05-05 09:50 | XMS_ITS | Encounter Summary ---
Author Organization [employer] ([place], [place], [place], [place]) Address [address] [place] [address] Care Team Providers Care Digital Controls Technical Officer Name Role Phone Unavailable Primary Care Provider Unavailabl e Encounter Details Date Type Department Care Team (Late st Contact Info) Description 01/07/2022 Transcribed Document [facility] [place] [address] [place] [address] ProviderCarlos MD [address] [place] [address] Social History Tobacco Use Types [...] Policy Numbers : Insurance 1 Health Plan: [place] Policy Number: [id number] Authorization Number: Insurance Primary Name : [place] Policy Number: [id number] Authorization Status-Primary : Awaiting callback Reference Number-Primary : [id number] Authorized Service Begin Date-Primary : 01/03/2022 EDT Authorization Comments-Primary : Clinicals faxed via [employer] for IP approval Historical Authorization Comments-Primary : Comment 1: AUTH SUBMITTED VIA [employer] /w CLINICALS ATTACHED (Olive Dolan RN 01/04/2022 15:27) ISAIAS NAVARRO RN - 01/07/2022 12:21 EDT documented in this encounter Plan of Treatment Not on file documented as of this encounter Visit Diagnoses Not on filedocumented in this encounter
--- OUTSIDE RECORDS SUMMARY | 2025-05-05 09:50 | XMS_ITS | Encounter Summary ---
Author Organization [employer] ([place], [place], [place], [place]) Address [address] [place] [address] Care Team Providers Care Manufacturing Engineering Professor Name Role Phone Unavailable Primary Care Provider Unavailabl e Encounter Details Date Type Department Care Team (Late st Contact Info) Description 01/07/2022 Transcribed Document [facility] [place] [facility] [place] [address] ProviderCarlos MD [facility] [place] [address] Social History Tobacco Use Types [...] Medical At risk for violence / IMO [id number] / Confirmed History of obstructive sleep apnea / IMO [id number] / Confirmed, Active Problems (8) At risk [...] follow him up as outpatient next week. Electronically signed by Jayde Babin Conversion Supervisory Training Specialist Carolner at 02/02/2023 1:50 PM CDT documented in this encounter Plan of Treatment Not on file documented as of this encounter Visit Diagnoses Not on filedocumented in this encounter
--- OUTSIDE RECORDS SUMMARY | 2025-05-05 09:50 | XMS_ITS | Encounter Summary ---
Author Organization [employer] ([place], [place], [place]) Address [address] [place] [address] Care Team Providers Care Auxiliary Operator Name Role Phone Unavailable Primary Care Provider Unavailabl e Encounter Details Date Type Department Care Team (Late st Contact Info) Description 01/05/2022 Transcribed Document [facility] [place] [address] [place] [address] ProviderCarlos MD [address] [place] [address] Social History Tobacco Use Types [...]
--- OUTSIDE RECORDS SUMMARY | 2025-05-05 09:50 | XMS_ITS | Encounter Summary ---
Author Organization [employer] ([place], [place], [place], [place]) Address [address] [place] [address] Care Team Providers Care Construction Crew Member Name Role Phone Unavailable Primary Care Provider Unavailabl e Encounter Details Date Type Department Care Team (Late st Contact Info) Description 01/06/2022 Transcribed Document [facility] [place] [address] [place] [address] ProviderCarlos MD [address] [place] [address] Social History Tobacco Use Types [...] On: 01/06/2022 13:33 EDT by Donaldo Darden Docking Pilot Cert Lead Meds to Bed Enrollment Patient Enrollment Decision: : Yes/enroll in meds to bed program Donaldo Darden Docking Pilot Cert Lead - 01/06/2022 13:33 EDT Electronically signed by Jayde Babin Conversion Microbiology Laboratory Manager Cerner at 02/02/2023 1:59 PM CDT documented in this encounter Plan of Treatment Not on file documented as of this encounter Visit Diagnoses Not on filedocumented in this encounter
--- OUTSIDE RECORDS SUMMARY | 2025-05-05 09:50 | XMS_ITS | Encounter Summary ---
Author Organization [employer] ([place], [place], [place], [place]) Address [address] [place] [address] Care Team Providers Care Manager Progressive Care Name Role Phone Unavailable Primary Care Provider Unavailabl e Encounter Details Date Type Department Care Team (Late st Contact Info) Description 01/07/2022 Transcribed Document [facility] [place] [address] [place] [address] ProviderCarlos MD [address] [place] [address] Social History Tobacco Use Types [...] december 2021 and that he is at [facility], knows correct age and . no tremor. [...] schmid and do PVR today. d/w dr straks, possible dc tomorrow if renal function continues to improve. time spent: 28 min discharge goals: monitor renal function anticipated discharge disposition: home hopefully tomorrow if creatinine < 6.0 Ana Tabor Hospitalist pager- [phone] Electronically signed by Talya, [facility] Conversion Plate Furnace Operator Cerner at 02/02/2023 2:01 PM CDT documented in this encounter Plan of Treatment Not on file documented as of this encounter Visit Diagnoses Not on filedocumented in this encounter
--- OUTSIDE RECORDS SUMMARY | 2025-05-05 09:50 | XMS_ITS | Clinical Summary ---
Author Organization [facility] Address [address] [place] [address] Care Team Providers Care Compliance Project Manager Name Role Phone Kaveh Ryan MD Primary Care Provider [phone] Allergies No known active allergies Medications levETIRAcetam (KEPPRA) 500 MG tablet Take 2 tablets by mouth 2 (Two) Times a Day. Active meclizine 25 MG chewable tablet chewable tablet Chew 1 tablet 3 (Three) Times a Day As Needed. Active Cholecalciferol 25 MCG (1000 UT) tablet Take 1 tablet by mouth Daily. Active atorvastatin (LIPITOR) 80 MG tablet Take 1 tablet by mouth Every Night. Active clopidogrel (PLAVIX) 75 MG tablet Take 1 tablet by mouth Daily. Active metFORMIN (GLUCOPHAGE) 500 MG tablet Take 1 tablet by mouth 2 (Two) Times a Day With Meals. Active OLANZapine (zyPREXA) 5 MG tablet Take 1 tablet by mouth Every Night. Active Fluticasone-Kermit meterol (ADVAIR/WIXELA) 250-50 MCG/ACT DISKUS Inhale 2 (Two) Times a Day. Active Lacosamide 150 MG tabletIndicatio ns:Seizure disorder Take 150 mg by mouth Every 12 (Twelve) Hours for 3 days. 6 tablet 09/04/2022 Active divalproex (DEPAKOTE) [address] tablet Take 2 tablets by mouth 2 (Two) Times a Day for 3 days. 12 tablet 09/04/2022 Active Active Problems Problem Noted Date Diagnosed Date Urinary tract infection 08/28/2022 UTI (urinary tract infection) 08/27/2022 Generalized weakness 08/27/2022 Lactic acidosis 08/27/2022 History of encephalopathy 08/27/2022 Overview (08/27/2022): Extensive work-up at / paraneoplastic or autoimmune encephalitis or an infiltrative process such as lymphoma, sarcoid, or some type of insidious infective process Seizure disorder 08/27/2022 COPD (chronic obstructive pulmonary disease) T2DM (type 2 diabetes mellitus) Family History Medical History Relation Name Comments Coronary artery disease Brother x2 Aneurysm Father brain Coronary artery disease Father Diabetes Mother Relation Name Status Comments Brother x2 Alive Father Mother Sister x2 Alive Social History Tobacco Use Types Packs/Day Years Used Date Smoking Tobacco: Former Cigarettes Q uit: 2014 Smokeless Tobacco: Current Tobacco Cessation:Ready to Q uit: Not Asked; Counseling Given: Not Answered Alcohol Use Standard Drinks/Week Comments Never 0 (1 standard drink = 0.6 oz pur e alcohol) AUDIT-C Answer Date Recorded Q1: How often do you have a drink containing alcohol? Never 08/27/2022 Q2: How many drinks containi ng alcohol do you have on a typical day when you are drinking? Patient does not drink Q3: How often do you have si x or more drinks on one occasion? Never 08/27/2022 Abuse Screen Answer Date Recorded Unsafe at Home or Work/School Not on file Feels Threatened by Someone? Not on file 09/2023 Does Anyone Keep You from Co ntacting Others or Doint Things Outside the Home? Not on file 08/30/2023 Physical Sign of Abuse Present Not on file 1 10/30/2022 Housing Stability Answer Date Recorded Current Living Arrangements Not on file 08/19 Potentially Unsafe Housing Conditions Not on liz e 08/30/2023 Family and Community Support Answer Stanley e Recorded Help with Day-to-Day Activities Not on file 07/31/2023 Lonely or Isolated Not on file 07/31/2023 Employment Answer Date Recorded Do you want help finding or keeping work or a emily b? Not on file 07/31/2023 Disabilities Answer Date Recorded Concentrating, Remembering, or Making Decisions Difficulty Not on file 08/30/2023 Doing Errands Independently Difficulty Not on fi le 08/30/2023 Education Answer Date Recorded Help with school or training? Not on file Preferred Language Not on file 07/31/2023 Sex and Gender Information Value Date Recorded Sex Assigned at Not on file Legal Sex Male 2:15 PM EST Gender Identity Not on file Sexual Orientation Not on file Last Filed Vital Signs Vital Sign Reading Time Taken Comments Blood Pressure 105/72 09/04/2022 7:44 PM EST Pulse 82 09/04/2022 7:44 PM EST Temperature 36.8 C (98.2 F) 09/04/2022 2:38 PM EST Respiratory Rate 18 09/04/2022 7:44 PM EST Oxygen Saturation 94% 09/04/2022 7:44 PM EST Inhaled Oxygen Concentration - - Weight 85.7 kg (189 lb) 09/04/2022 5:00 AM EST Height 170.2 cm (5' 7 ) 08/27/2022 2:22 PM EST Body Mass Index 29.6 08/27/2022 2:22 PM EST Plan of Treatment Health Maintenance Due Date Last Done Comments ANNUAL PHYSICAL 1954 TDAP/TD VACCINES (1 - Tdap) 1973 COLOGUARD 1999 COLON CANCER SCREENING 5 YEA R SIGMOIDOSCOPY 1999 COLONOSCOPY 1999 [address] CANCER SCREENING 1999 CT COLONOGRAPHY 1999 FECAL OCCULT BLOOD TEST 1999 FIT Testing (1 year) 1999 ZOSTER VACCINE (1 of 2) 2004 COVID-19 Vaccine (2 - 2023-2 5 season) 2024 07/21/2022 INFLUENZA VACCINE 07/19/2025 09/06/2021, 10/24/2020 Pneumococcal Vaccine 50+ Completed 01/23/2021, 11/19 AAA SCREEN ONCE Completed 03/13/2022, 02/17, 02/04/2022, Additional history exists HEPATITIS C SCREENING Completed 03/19/2022 HEMOGLOBIN A1C Discontinued 08/28/2022, 01/17, 01/30/2022 Procedures Procedure Name Priority Date/Time Associated Diagnosis Comments HEMOGLOBIN A1C Routine 08/28/2022 8:27 AM EST from Last 3 Months or Most Recently Relevant to Health Maintenance Results * Hemoglobin A1c (08/28/2022 8:27 AM EST) Hemoglobin A1C 5.50 4.80 - 5.60 % 08/28/2022 9:18 AM EST LABORATORY Blood Venipuncture / Unknown 08/28/2022 8:27 AM EST 08/28/2022 8:56 AM EST Narrative LABORATORY - 08/28/2022 9:18 AM EST Hemoglobin A1C Ranges: Increased Risk for Diabetes 5.7% to 6.4% Diabetes >= 6.5% Diabetic Goal < 7.0% Christine Vilchis CUSTOMER SUCCESS DIRECTOR LAB BLOOD ORDERABLES Final Resu lt LABORATORY
[address] [place] [address], from Last 3 Months or Most Recently Relevant to Health Maintenance Insurance MEDICARE ADVANTAGE Advance Directives * CPR (Attempt to Resuscitate) (Latest Code Status on File) Date Activated Date Inactivated Comments 08/27/2022 5:31 PM 09/04/2022 11:30 PM Question Answer Comments Code Status (Patient has no pulse and is not breathing): CPR (Attempt to Resuscitate) Medical Interventions (Patie nt has pulse or is breathing): Full Support Release to patient: Routine Release Care Teams Compliance Project Manager Relationship Specialty Start Date End Date Kaveh Ryan MD [address] ATTN: [place] [address] PCP - General Emergency Medicine 08/27/22
--- OUTSIDE RECORDS SUMMARY | 2025-05-05 09:50 | XMS_ITS | Encounter Summary ---
Author Organization [employer] ([place], [place], [place], [place]) Address [address] [place] [address] Care Team Providers Care Fast Food Team Member Name Role Phone Unavailable Primary Care Provider Unavailabl e Encounter Details Date Type Department Care Team (Late st Contact Info) Description 01/08/2022 Transcribed Document [facility] [place] Family Medicine [address] [place] [address] ProviderCarlos MD [address] [place] [address] Social History Tobacco Use Types [...] Historical ProviderMD - 01/08/2022 2:00 AM CDT B2B Appointment Setter Details Entered On: 01/08/2022 6:49 EDT Performed [...]
--- OUTSIDE RECORDS SUMMARY | 2025-05-05 09:50 | XMS_ITS | Encounter Summary ---
Author Organization [employer] ([place], [place], [place], [place]) Address [address] [place] [address] Care Team Providers Care Steward/Stewardess Economy Class Name Role Phone Unavailable Primary Care Provider Unavailabl e Encounter Details Date Type Department Care Team (Late st Contact Info) Description 01/06/2022 Transcribed Document [facility] [place] [address] [place] [address] ProviderCarlos MD [address] [place] [address] Social History Tobacco Use Types [...] 15:50 EDT by RODDY PHILLIPS RN - Traveler Changer Initial Assessment I Previously Documented Living Environment : No qualifying data available. Living Situation : Home Patient Lives With : Significant other(s) Emergency Contact #1 : Izabela Sanchezn Emergency Contact #1 Phone Number : [phone] Emergency Contact #1 Relationship : girlfriend Emergency [...] Guardian : No RODDY PHILLIPS RN - Traveler Changer - 01/06/2022 15:50 EDT Initial Assessment II Current Home Treatments and Equipment : Walker RODDY PHILLIPS RN - Traveler Changer - 01/06/2022 15:50 EDT Discharge Needs I Anticipated Discharge Date : 01/07/2022 EDT Anticipated Discharge To, CM : Home independently Current Home Treatment/Equipment : Current Home Treatment/Equipment No qualifying data available. Documentation Status Complete : Yes RODDY PHILLIPS RN - Traveler Changer - 01/06/2022 15:50 EDT Discharge Needs II Professional Skilled Services : Professional Skilled Services No qualifying data available. Needs Assistance with Transportation : No Patient Discharge Goal : Home RODDY PHILLIPS RN - Traveler Changer - 01/06/2022 15:50 EDT Narrative Note Narrative [...] girlfriend to transport. RODDY PHILLIPS RN - Traveler Changer - 01/06/2022 15:50 EDT documented in this encounter Plan of Treatment Not on file documented as of this encounter Visit Diagnoses Not on filedocumented in this encounter
--- OUTSIDE RECORDS SUMMARY | 2025-05-05 09:50 | XMS_ITS | Encounter Summary ---
Author Organization [employer] ([place], [place], [place], [place]) Address [address] [place] [address] Care Team Providers Care Tour Operator Name Role Phone Unavailable Primary Care Provider Unavailabl e Encounter Details Date Type Department Care Team (Late st Contact Info) Description 01/08/2022 Transcribed Document [facility] [place] [facility] [place] [address] ProviderCarlos MD [address] [place] [address] Social History Tobacco Use Types [...] type 2 dm - a1c 6.7 - [facility] l[facility]: Mr. Shook is a 66 year old male with history of CHF type unknown, HTN, INOCENTE, COPD who presented to outside hospital with one week of nausea and vomiting, there he was found ot have creatinine over 11 and was sent to [facility] for nephrology evaluation. Here IV [...]
--- OUTSIDE RECORDS SUMMARY | 2025-05-05 09:50 | XMS_ITS | Encounter Summary ---
Author Organization [employer] ([place], [place], [place], [place]) Address [address] [place] [address] Care Team Providers Care Filter Tank Tender Helper Name Role Phone Unavailable Primary Care Provider Unavailabl e Encounter Details Date Type Department Care Team (Late st Contact Info) Description 01/05/2022 Transcribed Document [facility] [place] [facility] [place] [address] ProviderCarlos MD [address] [place] [address] Social History Tobacco Use Types [...] assessment additional narrative Description of Event : EDUCATIONAL SPEECH LANGUAGE CLINICIAN approached RN at shift change stating that [...] comfortable with call light. At approximately 0015, EDUCATIONAL SPEECH LANGUAGE CLINICIAN approached RN stating that patient had again [...]
--- OUTSIDE RECORDS SUMMARY | 2025-05-05 09:50 | XMS_ITS | Encounter Summary ---
Author Organization [employer] ([place], [place], [place], [place]) Address [address] [place] [address] Care Team Providers Care Director Marketing Communications Name Role Phone Unavailable Primary Care Provider Unavailabl e Encounter Details Date Type Department Care Team (Late st Contact Info) Description 01/03/2022 Transcribed Document [facility] [place] [facility] [place] [address] ProviderCarlos MD [address] [place] [address] Social History Tobacco Use [...] htn chf with unknown lvef presents to [facility] from outside facility where he allegedly [...] in accordance with the flexibilities announced by [facility] limited examination is performed. General: Well [...] patient is in bed, Continuous Order ([facility]USA LONOGRIA) Problem List/Past Medical History Ongoing Back pain [...] # 0.72 x10(3)/uL (Low) 01/03/2022 21:48 EDT [place] % 8.9 % 01/03/2022 21:48 EDT [place] # 0.73 K/uL 01/03/2022 21:48 EDT Eos [...]
--- OUTSIDE RECORDS SUMMARY | 2025-05-05 09:50 | XMS_ITS | Encounter Summary ---
Author Organization [employer] ([place], [place], [place], [place]) Address [address] [place] [address] Care Team Providers Care Cement Rubber Name Role Phone Unavailable Primary Care Provider Unavailabl e Encounter Details Date Type Department Care Team (Late st Contact Info) Description 01/08/2022 Transcribed Document [facility] [place] Family Medicine [address] [place] [address] ProviderCarlos MD [address] [place] [address] Social History Tobacco Use Types [...] 12:49 EDT by RODDY PHILLIPS RN - Morning Show Producer Final Discharge Planning Discharge Arrangements : Patient [...] : Yes Discharge To Care Management : Home/Residential/Snf or Self Care -01 RODDY PHILLIPS, RN - Morning Show Producer - 01/08/2022 12:49 EDT documented in this encounter Plan of Treatment Not on file documented as of this encounter Visit Diagnoses Not on filedocumented in this encounter
--- OUTSIDE RECORDS SUMMARY | 2025-05-05 09:50 | XMS_ITS | Encounter Summary ---
Author Organization [employer] ([place], [place], [place], [place]) Address [address] [place] [address] Care Team Providers Care Jig Inspector Name Role Phone Unavailable Primary Care Provider Unavailabl e Encounter Details Date Type Department Care Team (Late st Contact Info) Description 01/04/2022 Transcribed Document [facility] [place] [facility] [place] [address] ProviderCarlos MD [address] [place] [address] Social History Tobacco Use Types [...]
--- OUTSIDE RECORDS SUMMARY | 2025-05-05 09:50 | XMS_ITS | Clinical Summary ---
Author Organization [employer] ([place], [place], [place], [place]) Address [address] [place] [address] Care Team Providers Care Garage Hand Name Role Phone Unavailable Primary Care Provider [...]
--- OUTSIDE RECORDS SUMMARY | 2025-05-05 09:50 | XMS_ITS | Encounter Summary ---
Author Organization [employer] ([place], [place], [place], [place]) Address [address] [place] [address] Care Team Providers Care Covering Machine Tender Name Role Phone Unavailable Primary Care Provider Unavailabl e Encounter Details Date Type Department Care Team (Late st Contact Info) Description 01/04/2022 Transcribed Document [facility] [place] [address] [place] [address] ProviderCarlos MD [address] [place] [address] Social History Tobacco Use Types [...] Paulson and Dr. Rocha Note dictated with Agile[employer] recognition system Problem List/Past Medical History Ongoing [...] mg= 1 Tab, Oral, Daily Vitamin D2, 13983 Units= 1 Cap, Oral, Weekly Home acetaminophen-oxyCODONE [...] Allergies Imdur Social History , lives in [facility], former smoker, no active illegal drug [...] # 0.72 x10(3)/uL (Low) 01/03/2022 21:48 EDT [place] % 11.9 % (High) 01/04/2022 06:38 EDT [place] % 8.9 % 01/03/2022 21:48 EDT [place] # 0.80 K/uL 01/04/2022 06:38 EDT [place] # 0.73 K/uL 01/03/2022 21:48 EDT Eos [...] 01/03/2022 21:48 EDT Electronically signed by Talya [facility] Conversion Operating Room Registered Nurse Cerner at 02/02/2023 1:41 PM CDT documented in this encounter Plan of Treatment Not on file documented as of this encounter Visit Diagnoses Not on filedocumented in this encounter
--- OUTSIDE RECORDS SUMMARY | 2025-05-05 09:50 | XMS_ITS | Encounter Summary ---
Author Organization [facility] Address [address] [place] [address] Care Team Providers Care Metal Expediter Name Role Phone Kaveh Ryan MD Primary Care Provider + [phone] Kalli Shipley MD Unavailable + [phone] Reason for Visit * Reason Comments Med Refill Encounter Details Date Type Department Care Team (Late st Contact Info) Description 05/07/2023 [facility]ill [place] [facility] [address] [place] [address] Kalli Shipley MD [address] [place] [address] Social History Tobacco Use Types [...] Description 05/12/2025 10:40 AM EDT Office Visit [facility] [address] [place] [address] [place] [address] Juliann Adrian, HOTEL SERVICES SUPERVISOR [address] [facility] [address] [place] [address] documented as of this encounter Visit Diagnoses Not on filedocumented in this encounter Additional Health Concerns Assessment Noted Time A fall risk assessment has been complete d for the patient 02/26/2023 9:15 AM EDT A Body Mass Index follow-up plan has been documented for the patient 02/26/2023 12:36 PM EDT documented as of this encounter Care Teams Metal Expediter Relationship Specialty Start Date End Date Kaveh Ryan MD [address] [facility] [place] [address] PCP - General 05/28/22 Kalli Shipley MD [address] [facility] [address] [place] [address] Service Attending Neurology 05/28/22 documented as of this encounter
--- OUTSIDE RECORDS SUMMARY | 2025-05-05 09:50 | XMS_ITS | Encounter Summary ---
Author Organization [employer] ([place], [place], [place], [place]) Address [address] [place] [address] Care Team Providers Care College Specialist Name Role Phone Unavailable Primary Care Provider Unavailabl e Encounter Details Date Type Department Care Team (Late st Contact Info) Description 01/08/2022 Transcribed Document [facility] [place] [facility] [place] [address] ProviderCarlos MD [facility] [place] [address] Social History Tobacco Use Types [...] Medical At risk for violence / IMO [id number] / Confirmed History of obstructive sleep apnea / IMO [id number] / Confirmed, Active Problems (8) At risk [...]
--- OUTSIDE RECORDS SUMMARY | 2025-05-05 09:50 | XMS_ITS | Encounter Summary ---
Author Organization [employer] ([place], [place], [place], [place]) Address [address] [place] [address] Care Team Providers Care Stranding Supervisor Name Role Phone Unavailable Primary Care Provider Unavailabl e Encounter Details Date Type Department Care Team (Late st Contact Info) Description 01/08/2022 Transcribed Document [facility] [place] Family Medicine [address] [place] [address] ProviderCarlos MD [address] [place] [address] Social History Tobacco Use Types [...]
--- OUTSIDE RECORDS SUMMARY | 2025-05-05 09:50 | XMS_ITS | Encounter Summary ---
Author Organization [employer] ([place], [place], [place], [place]) Address [address] [place] [address] Care Team Providers Care Swager Operator Name Role Phone Unavailable Primary Care Provider Unavailabl e Encounter Details Date Type Department Care Team (Late st Contact Info) Description 01/08/2022 Transcribed Document [facility] [place] [address] [place] [address] ProviderCarlos MD [address] [place] [address] Social History Tobacco Use Types [...] Follow these instructions at home: ??? Take zrzy-ouk-yibouae and prescription medicines only as told by your health care provider. ??? Weigh yourself daily. Your target weight is lb ( kg). ? Call your health care provider if you gain more than lb ( kg) in a day, or more than lb ( kg) in one week. ??? Eat a heart-healthy diet. Work with a diet and child nutrition director (dietitian) to create an eating plan that is best for you. ??? Keep all follow-up visits as told by your health care provider. This is important. Where to find more information ??? [place] Heart Association: www.heart.org Summary ??? Follow the [...] provider. Document Revised: 09/17/2018 Document Reviewed: 11/14/2017 [employer] Patient Education ? 2020 [employer] Endocrinology Carbohydrate Counting for Diabetes Mellitus, [...] foods that contain carbohydrates: ??? Rice. ??? [place]. ??? Milk. ??? Strawberries. 2. Calculate how [...] snacks. Where to find more information ??? [place] Diabetes Association: www.diabetes.org ??? Centers for Disease [...] provider. Document Revised: 10/04/2020 Document Reviewed: 10/05/2020 [employer] Patient Education ? 2020 [employer]. Diabetes Mellitus and Skin Care Diabetes, also [...] sclerosis). ??? Brown or red, ring-shaped or hlmg-eecr-ndldca patches of skin on the ears or [...] provider. Document Revised: 07/10/2020 Document Reviewed: 07/24/2020 [employer] Patient Education ? 2020 [employer] Diabetes Mellitus and Nutrition, Adult When [...] Carrots. Green beans. Tomatoes. Peppers. Onions. Cucumbers. [place] sprouts. Grains Whole grains, such as whole-wheat [...] Do I need to meet with a certified breastfeeding educator? Do I need to meet with a dietitian? What number can I call if I have questions? When are the best times to check my blood glucose? Where to find more information: ??? [place] Diabetes Association: diabetes.org ??? Academy of Nutrition and Dietetics: www.eatright.org ??? National Novelty of Diabetes and Digestive and Kidney Diseases: [...] provider. Document Revised: 09/11/2020 Document Reviewed: 09/11/2020 [employer] Patient Education ? 2020 [employer]. Nephrology Acute Kidney Injury, Adult Acute kidney [...] these instructions at home: Medicines ??? Take hwvj-epe-uxvrxmg and prescription medicines only as told by [...] important. Where to find more information ??? [place] Association of Kidney Patients: www.aakp.org ??? National Kidney Foundation: www.kidney.org ??? [place] Kidney Fund: www.akfinc.org ??? Life Options Rehabilitation [...] provider. Document Revised: 08/14/2020 Document Reviewed: 08/14/2020 [employer] Patient Education ? 2020 [employer]. Pulmonary Medicine Chronic Obstructive Pulmonary Disease Exacerbation [...] these instructions at home: Medicines ??? Take gemk-ycg-qfsbuci and prescription medicines only as told by [...] cannot use soap and water, use hand aquatics assistant department head. ??? During flu season, avoid areas that [...] provider. Document Revised: 09/17/2018 Document Reviewed: 11/09/2017 [employer] Patient Education ? 2020 [employer]. documented in this encounter Plan of Treatment Not on file documented as of this encounter Visit Diagnoses Not on filedocumented in this encounter
--- OUTSIDE RECORDS SUMMARY | 2025-05-05 09:50 | XMS_ITS | Encounter Summary ---
Author Organization [employer] ([place], [place], [place], [place]) Address [address] [place] [address] Care Team Providers Care Basketball Scout Name Role Phone Unavailable Primary Care Provider Unavailabl e Encounter Details Date Type Department Care Team (Late st Contact Info) Description 01/08/2022 Transcribed Document [facility] [place] [address] [place] [address] ProviderCarlos MD [address] [place] [address] Social History Tobacco Use Types [...] 01/08/2022 2:24 PM CDT SAMINA BONILLA, [address] [place] [address] Re: INEZ SHOOK Date of Visit: 01/03/2022 [...] is strictly prohibited. Sincerely, ANA TORRES [address] [facility] [address] [place] [id number] The following document(s) were included in the letter: January 08, 2022 10:37:00 EDT - (01/08/2022) Discharge Summary * documented in this encounter Plan of Treatment Not on file documented as of this encounter Visit Diagnoses Not on filedocumented in this encounter
--- OUTSIDE RECORDS SUMMARY | 2025-05-05 09:50 | XMS_ITS | Encounter Summary ---
Author Organization [employer] ([place], [place], [place], [place]) Address [address] [place] [address] Care Team Providers Care Mesmerist Name Role Phone Unavailable Primary Care Provider Unavailabl e Encounter Details Date Type Department Care Team (Late st Contact Info) Description 01/05/2022 Transcribed Document [facility] [address] [place] [address] ProviderCarlos MD [address] [place] [address] Social History Tobacco Use Types [...] Paulson and Dr. Geniedy Note dictated with Useful at Night recognition system Medications acetaminophen, 650 mg= 2 [...] mg= 1 Tab, Oral, Daily Vitamin D2, 37648 Units= 1 Cap, Oral, Weekly Lab Results [...] 133 mg/dL 01/05/2022 10:47 EDT Sodium Ur [place] 31 mMole/Liter 01/05/2022 10:47 EDT CK 311 [...] # 0.58 x10(3)/uL (Low) 01/05/2022 08:52 EDT [place] % 5.9 % 01/05/2022 08:52 EDT [place] # 0.31 K/uL 01/05/2022 08:52 EDT Eos [...]
--- OUTSIDE RECORDS SUMMARY | 2025-05-05 09:50 | XMS_ITS | Encounter Summary ---
Author Organization [employer] ([place], [place], [place], [place]) Address [address] [place] [address] Care Team Providers Care Associate Professor Of Law Name Role Phone Unavailable Primary Care Provider Unavailabl e Encounter Details Date Type Department Care Team (Late st Contact Info) Description 01/03/2022 Transcribed Document [facility] [place] [address] [place] [address] ProviderCarlos MD [address] [place] [address] Social History Tobacco Use Types [...]
--- OUTSIDE RECORDS SUMMARY | 2025-05-05 09:50 | XMS_ITS | Encounter Summary ---
Author Organization [employer] ([place], [place], [place], [place]) Address [address] [place] [address] Care Team Providers Care Foreign Language Teacher Name Role Phone Unavailable Primary Care Provider Unavailabl e Encounter Details Date Type Department Care Team (Late st Contact Info) Description 01/04/2022 Transcribed Document [facility] [place] Medicine [address] [place] [address] ProviderCarlos MD [address] [place] [address] Social History Tobacco Use Types [...] Policy Numbers : Insurance 1 Health Plan: [place] Medicaid Policy Number: [id number] Authorization Number: Insurance Primary Name : [place] Medicaid Policy Number: [id number] Reference Number-Primary : [id number] Authorized Service Begin Date-Primary : 01/03/2022 EDT Authorization Comments-Primary : AUTH SUBMITTED VIA [employer] /w CLINICALS ATTACHED Historical Authorization Comments-Primary : No Authorization Comments Found TERESA RUEDA RN - 01/04/2022 15:27 EDT documented in this encounter Plan of Treatment Not on file documented as of this encounter Visit Diagnoses Not on filedocumented in this encounter
--- OUTSIDE RECORDS SUMMARY | 2025-05-05 09:50 | XMS_ITS | Encounter Summary ---
Author Organization [employer] ([place], [place], [place], [place]) Address [address] [place] [address] Care Team Providers Care Land Checker Name Role Phone Unavailable Primary Care Provider Unavailabl e Encounter Details Date Type Department Care Team (Late st Contact Info) Description 01/06/2022 Transcribed Document [facility] [place] [address] [place] [address] ProviderCarlos MD [address] [place] [address] Social History Tobacco Use Types [...] All Active Orders Reviewed : Yes [facility] DIEOG LPN - 01/06/2022 5:08 EDT documented in this encounter Plan of Treatment Not on file documented as of this encounter Visit Diagnoses Not on filedocumented in this encounter
--- OUTSIDE RECORDS SUMMARY | 2025-05-05 09:50 | XMS_ITS | Encounter Summary ---
Author Organization [employer] ([place], [place], [place], [place]) Address [address] [place] [address] Care Team Providers Care Director Of Sales Support Name Role Phone Unavailable Primary Care Provider Unavailabl e Encounter Details Date Type Department Care Team (Late st Contact Info) Description 01/03/2022 Transcribed Document [facility] [place] [address] [place] [address] ProviderCarlos MD [address] [place] [address] Social History Tobacco Use Types [...] 01/03/2022 21:25 EDT by Mikaela Mendoza Patient Cafe Lead Phan Phone Call for Consults Consult Phone Call/Page Attempt : First call Consult Reason : ZAHRA Consult, Additional Information : pt was seen on by Dr. Sanchez Cresson. Mikaela Mendoza Patient Cafe Lead Phan - 01/04/2022 17:26 EDT documented in this encounter Plan of Treatment Not on file documented as of this encounter Visit Diagnoses Not on filedocumented in this encounter
--- OUTSIDE RECORDS SUMMARY | 2025-05-05 09:50 | XMS_ITS | Encounter Summary ---
Author Organization [employer] ([place], [place], [place], [place]) Address [address] [place] [address] Care Team Providers Care Copping Machine Operator Name Role Phone Unavailable Primary Care Provider Unavailabl e Encounter Details Date Type Department Care Team (Late st Contact Info) Description 01/08/2022 Transcribed Document [facility] [place] [address] [place] [address] ProviderCarlos MD [address] [place] [address] Social History Tobacco Use Types [...] On: 01/08/2022 14:04 EDT by Angelique Joyce, Technology Development Intern Primary Insurance Authorization Authorization and Policy Numbers : Insurance 1 Health Plan: [place] [employer] Policy Number: [id number] Authorization Number: Insurance Primary Name : [place] [employer] - Policy Number: [id number] Authorization Status-Primary : Drg approved Auth/Referral Contact Name-Primary : [place] Reference Number-Primary : [id number] Authorization Number-Primary : [id number] Number of Days Authorized-Primary : 5 Day(s) Authorized Service Begin Date-Primary : 01/03/2022 EDT Authorized Service End Date-Primary : 01/08/2022 EDT Authorization Comments-Primary : Discharge summary faxed. Historical Authorization Comments-Primary : Comment 1: Authorized per fax 01/08/22 @ 1237. Approved DRG inpatient length of stay 01/03 - 01/09. (Angelique Joyce, Technology Development Intern 01/08/2022 14:03) Comment 2: Clinicals faxed via [employer] for IP approval (ISAIAS NAVARRO RN 01/07/2022 12:21) Comment 3: AUTH SUBMITTED VIA [employer] /w CLINICALS ATTACHED (Olive Dolan RN 01/04/2022 15:27) Angelique Joyce, Technology Development Intern - 01/08/2022 14:04 EDT Electronically signed by Jayde Babin Conversion Power House Control Room Operator Cerner at 02/02/2023 1:40 PM CDT documented in this encounter Plan of Treatment Not on file documented as of this encounter Visit Diagnoses Not on filedocumented in this encounter
--- OUTSIDE RECORDS SUMMARY | 2025-05-05 09:50 | XMS_ITS | Referral Summary ---
Author Organization [email or web address] ([place], [place], [place], [place]) Address [address] [place] [address] Care Team Providers Care Desolderer Name Role Phone Unavailable Primary Care Provider [...]
--- OUTSIDE RECORDS SUMMARY | 2025-05-05 09:50 | XMS_ITS | Encounter Summary ---
Author Organization [employer] ([place], [place], [place], [place]) Address [address] [place] [address] Care Team Providers Care Nozzleman Name Role Phone Unavailable Primary Care Provider Unavailabl e Encounter Details Date Type Department Care Team (Late st Contact Info) Description 01/08/2022 Transcribed Document [facility] [address] [place] [address] ProviderCarlos MD [address] [place] [address] Social History Tobacco Use Types [...] Soria MD - 01/08/2022 11:05 AM CDT [facility] [place], [place] [id number] INEZ SHOOK JR :1955 Visit Time:01/03/2022 Your [...] you Where: [address] [place] [address]- Business (1) Follow Up with SINCERE BONILLA When 01/15/2022 03:15 PM EDT Comments PCP appt made, Bring discharge instructions with you Where: [address] [place] [address]- Medications What How Much When Instructions Next Dose hydrALAZINE (hydrALAZINE 25 mg oral tablet) 1 Tablet(s) Oral Two Times A Day Duration: 30 Day(s) Pickup at [facility] [place] this evening Non Formulary (lab draw) See [...] improves and your are cleared by your primary mill roller to resume higher dose. Pickup at [facility] this evening gabapentin (gabapentin 600 mg oral [...] release) Oral Every Day tomorrow Pharmacy Information [facility] [place]: [address] [place] [address] [address] [place], [place] [phone] Take your medications faithfully. Do NOT skip [...] these instructions at home: Medicines ??? Take hrcl-xew-uuxkyvq and prescription medicines only as told by [...] important. Where to find more information ??? [place] Association of Kidney Patients: www.aakp.org ??? National Kidney Foundation: www.kidney.org ??? [place] Kidney Fund: www.akfinc.org ??? [facility] [...] provider. Document Revised: 08/14/2020 Document Reviewed: 08/14/2020 ElseFiberspar Patient Education ?? 2020 Park[employer]ma. Heart Failure Action Plan A heart failure [...] Follow these instructions at home: ??? Take kuan-qek-rmjxfig and prescription medicines only as told by your health care provider. ??? Weigh yourself daily. Your target weight is lb ( kg). ? Call your health care provider if you gain more than lb ( kg) in a day, or more than lb ( kg) in one week. ??? Eat a heart-healthy diet. Work with a diet and nutrition professor (dietitian) to create an eating plan that is best for you. ??? Keep all follow-up visits as told by your health care provider. This is important. Where to find more information ??? [place] Heart Association: www.heart.org Summary ??? Follow the [...] provider. Document Revised: 09/17/2018 Document Reviewed: 11/14/2017 ElseFiberspar Patient Education ?? 2020 Elsevier Inc. Chronic [...] these instructions at home: Medicines ??? Take phjo-bhx-cktsmmr and prescription medicines only as told by [...] cannot use soap and water, use hand supervisor diagnostic. ??? During flu season, avoid areas that [...] provider. Document Revised: 09/17/2018 Document Reviewed: 11/09/2017 ElseFiberspar Patient Education ?? 2020 [employer] Inc. Carbohydrate Counting for Diabetes Mellitus, Adult [...] foods that contain carbohydrates: ??? Rice. ??? [place]. ??? Milk. ??? Strawberries. 2. Calculate how [...] snacks. Where to find more information ??? [place] Diabetes Association: www.diabetes.org ??? Centers for Disease [...] provider. Document Revised: 10/04/2020 Document Reviewed: 10/05/2020 [employer] Patient Education ?? 2020 Park[employer]ma. Diabetes Mellitus and Skin Care Diabetes, also [...] sclerosis). ??? Brown or red, ring-shaped or vpcj-mwmt-hbmira patches of skin on the ears or [...] provider. Document Revised: 07/10/2020 Document Reviewed: 07/24/2020 [employer]ay Patient Education ?? 2020 [employer] Inc. Diabetes Mellitus and Nutrition, Adult When [...] Carrots. Green beans. Tomatoes. Peppers. Onions. Cucumbers. [place] sprouts. Grains Whole grains, such as whole-wheat [...] Do I need to meet with a religious educator? Do I need to meet with a dietitian? What number can I call if I have questions? When are the best times to check my blood glucose? Where to find more information: ??? [place] Diabetes Association: diabetes.org ??? Academy of Nutrition and Dietetics: www.eatright.org ??? National [place] of Diabetes and Digestive and Kidney Diseases: [...] provider. Document Revised: 09/11/2020 Document Reviewed: 09/11/2020 Resoomay Patient Education ?? 2020 Parking[employer]ma. gabapentin (GA ba PEN tin) Gralise, Horizant, [...] are a day sleeper or work a professor of journalism. Some people have thoughts about suicide while [...] may report side effects to FDA at 6-679-YUS-0172. What other drugs will affect gabapentin? Using gabapentin with other drugs that make you drowsy or slow your breathing can cause dangerous side effects or . Ask your doctor before using opioid medication, a sleeping pill, cold or allergy medicine, a muscle relaxer, or medicine for anxiety or seizures. Other drugs may affect gabapentin, including prescription and xsmv-tnu-darhzjv medicines, vitamins, and herbal products. Tell your [...] to ensure that the information provided by [employer]. ('[employer]') is accurate, up-to-date, and complete, but no guarantee is made to that effect. Drug information contained herein may be time sensitive. [employer] information has been compiled for use by healthcare practitioners and consumers in the [place] and therefore [employer] does not warrant that uses outside of the [place] are appropriate, unless specifically indicated otherwise. [employer] drug information does not endorse drugs, diagnose patients or recommend therapy. [employer] drug information is an informational resource designed [...] with your doctor, nurse or pharmacist. Copyright 1346-4655 [facility] [employer] [facility]. Version: 17.. Revision Date: 11/13/2020. hydralazine [...] may report side effects to FDA at 2-742-LCO-0922. What other drugs will affect hydralazine? Tell your doctor about all your current medicines and any you start or stop using, especially: ?? diazoxide (an injectable blood pressure medication); or ?? an MAO inhibitor--isocarboxazid, linezolid, methylene blue injection, phenelzine, rasagiline, selegiline, tranylcypromine, and others. This list is not complete. Other drugs may interact with hydralazine, including prescription and rpuo-xcz-gpdeosv medicines, vitamins, and herbal products. Not all [...] to ensure that the information provided by [employer]. ('[employer]') is accurate, up-to-date, and complete, but no guarantee is made to that effect. Drug information contained herein may be time sensitive. [employer] information has been compiled for use by healthcare practitioners and consumers in the [place] and therefore [employer] does not warrant that uses outside of the [place] are appropriate, unless specifically indicated otherwise. [employer] drug information does not endorse drugs, diagnose patients or recommend therapy. [employer] drug information is an informational resource designed [...] effective or appropriate for any given patient. [employer] does not assume any responsibility for any aspect of healthcare administered with the aid of information [employer] provides. The information contained herein is not intended to cover all possible uses, directions, precautions, warnings, drug interactions, allergic reactions, or adverse effects. If you have questions about the drugs you are taking, check with your doctor, nurse or pharmacist. Copyright 9238-4263 [employer]. Version: 5.01. Revision Date: 10/28/2017. lisinopril (lyse [...] have an allergic reaction if you are -[place]. Call your doctor at once if you have: ?? a light-headed feeling, like you might pass out; ?? fever, sore throat; documented in this encounter Plan of Treatment Not on file documented as of this encounter Visit Diagnoses Not on filedocumented in this encounter
--- OUTSIDE RECORDS SUMMARY | 2025-05-05 09:50 | XMS_ITS | Encounter Summary ---
Author Organization [employer] ([place], [place], [place], [place]) Address [address] [place] [address] Care Team Providers Care Residential Monitor Name Role Phone Unavailable Primary Care Provider Unavailabl e Encounter Details Date Type Department Care Team (Late st Contact Info) Description 01/03/2022 Transcribed Document [facility] [place] [facility] [place] [address] ProviderCarlos MD [facility] [place] [address] Social History Tobacco Use Types [...] [place] Emergency Contact #1 Phone Number : [phone] Emergency Contact #1 Relationship : girlfriend Emergency Contact #2 : none Emergency Contact #2 Phone Number : none Emergency Contact #2 Relationship : none Primary Language : Greek Communication Barrier : Cognitive Professor Of Communication And Writing Needed : No Ang Regan NON EMP [...] Level : 46 or > High Risk [place] Fall Interventions : Adequate lighting, Assistive devices [...] Source : Stated Height Entry Format : [place] Height, Feet : 5 ft(Converted to: 152 cm, 60 Inch) Height, Inches : 8 Inch(Converted to: 0 ft 8 Inch, 20.32 cm) Clinical Height : 172.72 cm [place] Body Weight : 67 kg Ang Regan NON EMP RN - 01/03/2022 21:38 EDT Estimated Weight Type of Weight Measurement Est : [place] Weight, est lb : 260 lb(Converted to: [...] Jass MarshallpaulineSHAYE RN - 01/03/2022 21:38 EDT [place] Suicide Severity Rating Scale (C-SSRS) CSSRS Past [...] EDT Electronically signed by Jayde Babin Conversion Motion Picture Camera Lens Technician Cerner at 02/02/2023 1:55 PM CDT documented in this encounter Plan of Treatment Not on file documented as of this encounter Visit Diagnoses Not on filedocumented in this encounter
[2025-05-05 10:24] LABS: Hematocrit 37.8 % (42.0-52.0); Hemoglobin 12.6 g/dL (14.1-18.0); Mean Corpuscular HGB Conc 33.3 g/dL (31.8-35.4); Mean Corpuscular Hemoglobin 30.7 pg (27.0-31.2); Mean Corpuscular Volume 92.2 fl (80-94); Nucleated Red Blood Cells % 0 %; Platelet Count 271 K/mm3 (142-424); Red Blood Count 4.10 M/mm3 (4.60-6.20); Red Cell Distribution Width-SD 50.4 fL; White Blood Count 8.5 K/mm3 (4.8-10.8)
[2025-05-05 10:42] LABS: Albumin Level 4.1 g/dl (3.5-5.0); Anion Gap 20.9 mEq/L (5-15); Blood Urea Nitrogen 20 mg/dl (9-20); Calcium 9.8 mg/dl (8.4-10.2); Carbon Dioxide 23 mmol/L (22.0-30.0); Chloride 95 mmol/L (98-107); Creatinine,Serum 1.20 mg/dl (0.66-1.25); Estimated Glomerular Filt Rate 60 ml/min (>60); GFR (African American) 72 ML/MIN (>60); Glucose 133 mg/dl (74-100); Phosphorous 3.5 mg/dl (2.5-4.5); Potassium 4.9 mmoL/L (3.5-5.1); Sodium 134 mmol/L (136-145)
[2025-05-05 12:22] LABS: Microscopic, Urine URINE MICROSCOPIC (MICROSCOPIC)
[2025-05-05 12:38] LABS: Color,Urine BROWN (Yellow); Glucose,Urine (UA) Negative (Negative); Ketones,Urine TRACE (Negative); Leukocyte Esterase,Urine Negative (Negative); PH,Urine 6.0 (5.0-8.5); Protein,Urine 1+ (Negative); Specific Gravity, Urine >= 1.030 (1.005-1.030); Urobilinogen,Urine 1.0 EU/dl (0.2)
[2025-05-05 12:39] LABS: Bilirubin,Urine 3+ (Negative)
[2025-05-05 12:45] LABS: Bacteria,Urine Trace /lpf; Hyaline Casts,Urine OCC #/lpf (0); Mucus,Urine 1+ /lpf; RBC,Urine Occasional #/hpf (0-3); Squamous Epithelial Cell,Urine Occasional #/hpf (0-5); WBC,Urine Occasional #/hpf (0-3)
[2025-05-09 16:15] LABS: POC Glucose,Bedside 151 (70-110)
[2025-05-11 05:48] LABS: 1,25 Dihydroxy Vitamin D 27 pg/mL (.); 1,25-Dihydroxy, Vitamin D-2 <10 pg/mL (.); 1,25-Dihydroxy, Vitamin D-3 24 pg/mL (.)
== END 2025-05-05 23:59 | disposition home or self-care (01) ==
LOC: LAB 09:45
PROVIDERS: PCP Family Medicine; Visit Provider Nurse Practitioner
DX: N18.31 Chronic kidney disease, stage 3a (principal); E83.9 Disorder of mineral metabolism, unspecified; M89.9 Disorder of bone, unspecified; R94.4 Abnormal results of kidney function studies
CPT/HCPCS: 36415; 80069; 81001; 82397; 82570; 82610; 82652; 82962; 83970; 84156; 85027; 87086

== ENCOUNTER 2025-06-08 10:22 | Outpatient (CLI) | payer MEDICARE, SELFPAY ==
--- OUTSIDE RECORDS SUMMARY | 2025-05-12 10:40 | XMS_ITS | Encounter Summary ---
Author Organization [facility] Address [address] [place] [address] Care Team Providers Care Hook Up Name Role Phone Kaveh Ryan MD Primary Care Provider + [phone] Kalli Shipley MD Unavailable + [phone] Reason for Visit * Reason Comments Consult Pt is a 69 year old male that presents to the clinic on this date for a new patient consult. Pt states she is having a headache, and rates the pain an 8/10. Pt denies complaints or concerns for this MA. Encounter Details Date Type Department Care Team (Late st Contact Info) Description 05/12/2025 10:40 AM EDT Office Visit [facility] [address] [place] [address] Juliann Adrian, [place] [address] [address] Stage 3a chronic kidney disease (CMS/HCC) (Primary Dx); Chronic kidney disease-mineral and bone disorder; Essential hypertension; Diabetes mellitus due to underlying condition with diabetic chronic kidney disease, unspecified CKD stage, unspecified whether senior living insulin use (CMS/HCC); Coronary artery disease involving [place] coronary artery of [place] heart without angina pectoris Social History Tobacco Use Types Packs/Day Years Used Date Smoking Tobacco: Former Cigarettes Smokeless Tobacco: Never Tobacco Cessation:Counseling Given: Not Answered Alcohol Use Standard Drinks/Week Comments Not Currently 0 (1 standard drink = 0.6 oz pur e alcohol) Sex and Gender Information Value Date Recorded Sex Assigned at Male 01/30/2022 11:52 PM EDT Legal Sex Male 7:16 PM EDT Gender Identity Male 01/30/2022 11:52 PM EDT Sexual Orientation Not on file documented as of this encounter Last Filed Vital Signs Vital Sign Reading Time Taken Comments Blood Pressure 138/88 05/12/2025 10:13 AM EDT Pulse 79 05/12/2025 10:13 AM EDT Temperature - - Respiratory Rate 18 05/12/2025 10:13 AM EDT Oxygen Saturation 97% 05/12/2025 10:13 AM EDT Inhaled Oxygen Concentration - - Weight 82.1 kg (181 lb) 05/12/2025 10:13 AM EDT Height 170.2 cm (5' 7 ) 05/12/2025 10:13 AM EDT Body Mass Index 28.35 05/12/2025 10:13 AM EDT documented in this encounter Miscellaneous Notes * Progress Notes - Juliann Adrian APRN - 05/12/2025 10:40 AM EDT Nephrology Clinic Follow up Note HPI: Efrain Maldonado Jr. is a 69 y.o. male with PMH of CHF, COPD, CAD, DM, HTN, seizure disorder presents as a new consult at the request of Kaveh Ryan MD Patient with known history of ZAHRA st 4 12/2021. His creatinine had elevated to 11 at that time. Cause of ZAHRA was deemed multifactorial. His renal function had recovered to ~1 until 06/2024 at which time his renal function started to elevate 1.2->1.5->1.7 (08/2024). No known illness, hospitalization. His notes he had been prescribed several different medications for his headaches around that time. He has intermittent dizziness and syncope. He was seen by Dr. Neri since August, and a majority of his medications have been discontinued. His creatinine is now at 1.2. He notes he does still have dizziness and headaches at times, however he notes he has much improved the last couple ofmonths. He is ambulating today, without assistance. He is alert and oriented, however his has to assist with medical history. His A1c is ~ 6, and has been close to that for several years. BP has been controlled. No NSAIDs, nofamily history of renal disease. Past renal ultrasounds 2021, 2022 reviewed and noted to be normal. Notes recent hospitalization for hyponatremia with associated weakness and dizziness. To see PCP next week for hospital followup. Na 134 on most recent labs. Denies hematuria, dysuria, abd pain, SOA, CP. Past Medical History[1] Current Outpatient Medications Medication Instructions acetaminophen (TYLENOL) 650 mg, Every 4 hours PRN albuterol 108 (90 Base) MCG/ACT inhaler 2 puffs, Inhalation, Every 4 hours PRN aspirin 81 mg, Daily atorvastatin (LIPITOR) 80 mg, Nightly chlorthalidone (HYGROTON) 25 mg, Daily cholecalciferol (VITAMIN D-3) 1,000 Units, Daily clopidogrel (PLAVIX) 75 mg, Daily cyproheptadine (Periactin) 4 MG tablet divalproex sprinkle (DEPAKOTE SPRINKLE) 125 mg, 3 times daily furosemide (LASIX) 20 mg, As needed HYDROcodone-acetaminophen ([place]) 5-325 MG tablet No dose, route, or frequency recorded. HYDROcodone-acetaminophen ([place]) 7.5-325 MG tablet 7.5 tablets, As needed lacosamide (VIMPAT) 150 mg, Oral, 2 times daily levETIRAcetam (KEPPRA) 1,000 mg, Oral, 2 times daily metFORMIN (GLUCOPHAGE) 500 mg, 2 times daily with meals metoprolol succinate XL (TOPROL-XL) 50 mg, Daily metoprolol tartrate (LOPRESSOR) 25 mg, Oral, 2 times daily mometasone-formoterol (Dulera 200) 200-5 MCG/ACT inhaler 2 puffs, Inhalation, ZZ 2 times daily RT, Rinse mouth with water after use to reduce aftertaste and incidence of candidiasis. Do not swallow. nitroglycerin (Nitrostat) 0.4 MG SL tablet No dose, route, or frequency recorded. OLANZapine zydis (ZYPREXA) 5 mg, Oral, Nightly pantoprazole (PROTONIX) 40 mg, 2 times daily prochlorperazine (COMPAZINE) 10 mg, Every 6 hours PRN QUEtiapine (SEROQUEL) 25 mg, Nightly ranolazine (RANEXA) 1,000 mg, 2 times daily sildenafil (VIAGRA) 50 mg, Daily PRN venlafaxine XR (EFFEXOR-XR) 150 mg, Daily Physical Exam Visit Vitals BP 138/88 (BP Location: Right arm, Patient Position: Sitting, BP Cuff Size: Adult) Pulse 79 Ht 1.702 m (5' 7 ) Wt 82.1 kg (181 lb) SpO2 97% BMI 28.35 kg/m?? GEN: NAD, sitting in chair, room air EYES: anicteric, EOMI ENT: MMM, Oropharynx clear RESP: patent airways, CTAB, no rales, rhonchi, wheezes CV: RRR, no appreciable murmurs Abd: soft, NT, ND, NABS MS/EXT: no LE edema, no new rashes PSYCH: mood appropriate, affect normal NEURO: AAOx3, follows commands Labs: I have independently reviewed and interpreted the test results and discussed with patient. Labs scanned in to media tab of [employer] from an outside facility. Labs completed on 05/05/25 Imaging: Assessment/Plan: AB AND IMAGING RESULTS 12/26/24 Na 139, K 4.4, BUN 26, CO2 28, Creatinine 1.2, Ca 10, pth 95.9, vit d 48.8 05/05/25 Na 134 Cr 1.2, Ca 9.8, Alb 4.1, K 4.9, pth 53.4 I have independently reviewed and interpreted the test results and discussed with patient. ASSESSMENT/PLAN CKD3a- baseline 1.2 Cystatin c 1.2 UA tr pr, +bilirubin HTN- controlled DM-controlled CKD-MBD Ca/pth now within normal limits Discussed lab trends with patient and . HTN and DM well controlled. Would avoid NSAIDs, and dose medications for egfr <60. Renal function stable at patient's baseline. No previous protein in UA, will obtain repeat with quantification prior to next visit. Of note bilirubin present. [1] Past Medical History: Diagnosis Date Arthritis CHF (congestive heart failure) ([facility]/HCC) COPD (chronic obstructive pulmonary disease) ([facility]/HCC) Coronary artery disease Diabetes mellitus (CMS/HCC) Hypertension Major depressive disorder Personal history of other diseases of the circulatory system History of hypertension Pure hypercholesterolemia, unspecified High cholesterol Vitamin D deficiency documented in this encounter Plan of Treatment Upcoming Encounters Date Type Department Care Team (Late st Contact Info) Description 01/12/2026 11:20 AM EDT Office Visit [facility] [address] [place] [address] Juliann Adrian APRN [address] [address] Scheduled Orders Name Type Priority Associated Diagnoses Orde r Schedule Renal Function Panel, Plasma Lab Routine Stage 3a chronic kidney disease ([facility]/HCC) Expected: 05/12/2025 (Approximate), Expires: 11/12/2026 CBC W/O Differential Lab Routine Stage 3a chronic kidney disease ([facility]/HCC) Expected: 05/12/2025 (Approximate), Expires: 11/12/2026 Urinalysis with reflex microscopic (Culture NOT Included) Lab Routine Stage 3a chronic kidney disease ([facility]) Expected: 05/12/2025 (Approximate), Expires: 11/12/2026 Creatinine, Random, Urine Lab Routine Stage 3a chronic kidney disease ([facility]/HCC) Expected: 05/12/2025 (Approximate), Expires: 11/12/2026 Albumin-creatinine ratio, urine, random Lab Routine Stage 3a chronic kidney disease ([facility]/HCC) Expected: 05/12/2025 (Approximate), Expires: 11/12/2026 Protein, Random, Urine with Creatinine Lab Routine Stage 3a chronic kidney disease ([facility]/HCC) Expected: 05/12/2025 (Approximate), Expires: 11/12/2026 documented as of this encounter Visit Diagnoses Diagnosis Stage 3a chronic kidney disease ([facility])- Primary Chronic kidney disease-mineral and bone disorder Essential hypertension Unspecified essential hypertension Diabetes mellitus due to underlying condition with diabetic chronic kidney disease, unspecified CKD stage, unspecified whether termite treater insulin use ([facility]) Coronary artery disease involving [place] coronary artery of [place] heart without angina pectoris documented in this encounter Additional Health Concerns Assessment Noted Time A fall risk assessment has been complete d for the patient 08/05/2023 11:12 AM EDT A Body Mass Index follow-up plan has been documented for the patient 05/12/2025 10:43 AM EDT documented as of this encounter Care Teams Hook Up Relationship Specialty Start Date End Date Kaveh Ryan MD [address] [place] [address] PCP - General 05/28/22 Kalli Shipley MD [address] [facility] [address] [place] [address] Service Attending Neurology 05/28/22 documented as of this encounter
[2025-06-08 15:34] LABS: Albumin Level 4.4 g/dl (3.5-5.0); Chloride 105 mmol/L (98-107); Hematocrit 41.7 % (42.0-52.0); Hemoglobin 13.2 g/dL (14.1-18.0); Immature Granulocytes % 0.7 %; Mean Corpuscular HGB Conc 31.7 g/dL (31.8-35.4); Mean Corpuscular Hemoglobin 29.8 pg (27.0-31.2); Mean Corpuscular Volume 94.1 fl (80-94); Nucleated Red Blood Cells % 0 %; Platelet Count 361 K/mm3 (142-424); Potassium 4.6 mmoL/L (3.5-5.1); Red Blood Count 4.43 M/mm3 (4.60-6.20); Red Cell Distribution Width-SD 51.1 fL; Sodium 138 mmol/L (136-145); White Blood Count 6.0 K/mm3 (4.8-10.8)
[2025-06-08 15:37] LABS: Alanine Aminotransferase 18 U/L (12-78); Albumin/Globulin Ratio 1.7 (1.1-1.8); Alkaline Phosphatase 57 U/L (38-126); Anion Gap 15.6 mEq/L (5-15); Aspartate Amino Transferase 37 U/L (17-59); Bilirubin,Total 0.4 mg/dl (0.2-1.3); Blood Urea Nitrogen 19 mg/dl (9-20); Calcium 9.7 mg/dl (8.4-10.2); Carbon Dioxide 22 mmol/L (22.0-30.0); Cholesterol 211 mg/dl (140-200); Creatinine,Serum 1.00 mg/dl (0.66-1.25); Estimated Glomerular Filt Rate 74 ml/min (>60); GFR (African American) 89 ML/MIN (>60); Globulin 2.6 g/dL (1.3-3.2); Glucose 105 mg/dl (74-100); Total Protein,Serum 7.0 g/dl (6.3-8.2); Triglycerides 178 mg/dl (30-150)
[2025-06-08 15:38] LABS: HDL Cholesterol 98 mg/dl (40-60)
[2025-06-08 18:00] LABS: Hemoglobin A1C 5.1 % (4.0-6.0)
--- OUTSIDE RECORDS SUMMARY | 2025-06-12 10:58 | XMS_ITS | Encounter Summary ---
Author Organization [employer] ([place], [place], [place], [place]) Address [address] [place] [address] Care Team Providers Care Casino Operations Supervisor Name Role Phone Unavailable Primary Care Provider Unavailabl e Encounter Details Date Type Department Care Team (Late st Contact Info) Description 01/04/[address] [facility] [place] Family Medicine [address] [place] [address] ProviderCarlos MD [address] [place] [address] Social History Tobacco Use Types [...] Policy Numbers : Insurance 1 Health Plan: [place] Medicaid Policy Number: [id number] Authorization Number: Insurance Primary Name : [place] Medicaid Policy Number: [id number] Reference Number-Primary : [id number] Authorized Service Begin Date-Primary : 01/03/2022 EDT Authorization Comments-Primary : AUTH SUBMITTED VIA [employer] /w CLINICALS ATTACHED Historical Authorization Comments-Primary : No Authorization Comments Found TERESA RUEDA RN - 01/04/2022 15:27 EDT documented in this encounter Plan of Treatment Not on file documented as of this encounter Visit Diagnoses Not on filedocumented in this encounter
--- OUTSIDE RECORDS SUMMARY | 2025-06-12 10:58 | XMS_ITS | Clinical Summary ---
Author Organization [facility] Address [address] [place] [address] Care Team Providers Care Field Associate Name Role Phone Kaveh Ryan MD Primary Care Provider [phone] Allergies No known active allergies Medications levETIRAcetam [...] - 5.60 % 08/28/2022 9:18 AM EST [facility] Blood Venipuncture / Unknown 08/28/2022 8:27 AM EST 08/28/2022 8:56 AM EST Narrative [facility] - 08/28/2022 9:18 AM EST Hemoglobin A1C Ranges: Increased Risk for Diabetes 5.7% to 6.4% Diabetes >= 6.5% Diabetic Goal < 7.0% Christine Vilchis WEED CONTROLLER LAB BLOOD ORDERABLES Final Resu lt [facility]
[address] [place] [address], from Last 3 Months or Most Recently [...] Release to patient: Routine Release Care Teams Field Associate Relationship Specialty Start Date End Date Kaveh Ryan MD [address] ATTN: [place] [address] PCP - General Emergency Medicine 08/27/22
--- OUTSIDE RECORDS SUMMARY | 2025-06-12 10:58 | XMS_ITS | Referral Summary ---
Author Organization [employer] ([place], [place], [place], [place]) Address [address] [place] [address] Care Team Providers Care Newspaper Publisher Name Role Phone Unavailable Primary Care Provider [...]
--- OUTSIDE RECORDS SUMMARY | 2025-06-12 10:58 | XMS_ITS | Encounter Summary ---
Author Organization [employer] ([place], [place], [place], [place]) Address [address] [place] [address] Care Team Providers Care Rand Cementer Name Role Phone Unavailable Primary Care Provider Unavailabl e Encounter Details Date Type Department Care Team (Late st Contact Info) Description 01/03/2022 Transcribed Document [facility] [place] [address] [place] [address] ProviderCarlos MD [address] [place] [address] Social History Tobacco Use Types [...] 01/03/2022 21:25 EDT by Mikaela Mendoza Patient Mail Caller Phan Phone Call for Consults Consult Phone Call/Page Attempt : First call Consult Reason : ZAHRA Consult, Additional Information : pt was seen on by Dr. Sanchez [place]. Mikaela Mendoza Patient Mail Caller Phan - 01/04/2022 17:26 EDT documented in this encounter Plan of Treatment Not on file documented as of this encounter Visit Diagnoses Not on filedocumented in this encounter
--- OUTSIDE RECORDS SUMMARY | 2025-06-12 10:58 | XMS_ITS | Encounter Summary ---
Author Organization [employer] ([place], [place]) Address [address] [place] [address] Care Team Providers Care Histology Assistant Name Role Phone Unavailable Primary Care Provider Unavailabl e Encounter Details Date Type Department Care Team (Late st Contact Info) Description 01/04/2022 Transcribed Document [facility] [place] Family Medicine [facility] [place] [address] ProviderCarlos MD [address] [place] [address] Social History Tobacco Use Types [...]
--- OUTSIDE RECORDS SUMMARY | 2025-06-12 10:58 | XMS_ITS | Encounter Summary ---
Author Organization [employer] ([place], [place], [place], [place]) Address [address] [place] [address] Care Team Providers Care Intermediate Designer Name Role Phone Unavailable Primary Care Provider Unavailabl e Encounter Details Date Type Department Care Team (Late st Contact Info) Description 01/04/2022 Transcribed Document [facility] [place] [facility] [place] [address] ProviderCarlos MD [address] [place] [address] Social History Tobacco Use Types [...] when ZAHRA resolved. Mirtha Tabor Hospitalist pager- [phone] documented in this encounter Plan of Treatment Not on file documented as of this encounter Visit Diagnoses Not on filedocumented in this encounter
--- OUTSIDE RECORDS SUMMARY | 2025-06-12 10:58 | XMS_ITS | Encounter Summary ---
Author Organization [employer] ([place], [place], [place], [place]) Address [address] [place] [address] Care Team Providers Care Terra Cotta Setter Name Role Phone Unavailable Primary Care Provider Unavailabl e Encounter Details Date Type Department Care Team (Late st Contact Info) Description 01/04/2022 Transcribed Document [facility] [place] [address] [place] [address] ProviderCarlos MD [address] [place] [address] Social History Tobacco Use Types [...] 01/04/2022 10:16 EDT by Mikaela Mendoza Patient County Extension Agent Phan Phone Call for Consults Consult Phone Call/Page Attempt : First call Consult Reason : ZAHRA Provider Service Notified Name : Nephrology Physician Returning Call : SEBASTIÁN RUTH [facility] Consult, Additional Information : Consult called on 01/04/2022 spoke with Sebastián Montanez. is aware of the consult and pt is on his list. Mikaela Mendoza, Patient County Extension Agent I - 01/04/2022 10:49 EDT documented in this encounter Plan of Treatment Not on file documented as of this encounter Visit Diagnoses Not on filedocumented in this encounter
--- OUTSIDE RECORDS SUMMARY | 2025-06-12 10:58 | XMS_ITS | Encounter Summary ---
Author Organization [employer] ([place], [place], [place], [place]) Address [address] [place] [address] Care Team Providers Care Telecom Specialist Name Role Phone Unavailable Primary Care Provider Unavailabl e Encounter Details Date Type Department Care Team (Late st Contact Info) Description 01/04/2022 Transcribed Document [facility] [place] [address] [place] [address] ProviderCarlos MD [address] [place] [address] Social History Tobacco Use Types [...] Paulson and Dr. Rocha Note dictated with [employer] recognition system Problem List/Past Medical History Ongoing [...] mg= 1 Tab, Oral, Daily Vitamin D2, 08672 Units= 1 Cap, Oral, Weekly Home acetaminophen-oxyCODONE [...] Imdur Social History , lives in [facility], former smoker, no active illegal drug [...] # 0.72 x10(3)/uL (Low) 01/03/2022 21:48 EDT [place] % 11.9 % (High) 01/04/2022 06:38 EDT [place] % 8.9 % 01/03/2022 21:48 EDT [place] # 0.80 K/uL 01/04/2022 06:38 EDT [place] # 0.73 K/uL 01/03/2022 21:48 EDT Eos [...] EDT IG% 0.50 % 01/03/2022 21:48 EDT documented in this encounter Plan of Treatment Not on file documented as of this encounter Visit Diagnoses Not on filedocumented in this encounter
--- OUTSIDE RECORDS SUMMARY | 2025-06-12 10:58 | XMS_ITS | Encounter Summary ---
Author Organization [facility] Address [address] [place] [address] Care Team Providers Care Part Time Flexible Clerk Name Role Phone Kaveh Ryan MD Primary Care Provider + [phone] Kalli Shipley MD Unavailable + [phone] Encounter Details Date Type Department Care Team (Latest Contact Info) Description 05/12/2025 Travel Social History Tobacco Use Types Packs/Day Years [...] on file documented as of this encounter Plan of Treatment Upcoming Encounters Date Type Department Care Team (Late st Contact Info) Description 01/12/2026 11:20 AM EDT Office Visit [facility] [address] [place] [phone] Juliann Adrian, HOSPICE PATIENT CARE SECRETARY [address] [facility] [address] [place] [address] documented as of this encounter Visit Diagnoses Not on filedocumented in this encounter Additional Health Concerns Assessment Noted Time A fall risk assessment has been complete d for the patient 08/05/2023 11:12 AM EDT A Body Mass Index follow-up plan has been documented for the patient 05/12/2025 10:43 AM EDT documented as of this encounter Care Teams Part Time Flexible Clerk Relationship Specialty Start Date End Date Kaveh Ryan MD [address] [place] [address] PCP - General 05/28/22 Kalli Shipley MD [address] [phone] Service Attending Neurology 05/28/22 documented as of this encounter
--- OUTSIDE RECORDS SUMMARY | 2025-06-12 10:58 | XMS_ITS | Encounter Summary ---
Author Organization [employer] ([place], [place], [place], [place]) Address [address] [place] [address] Care Team Providers Care Eeo Officer Name Role Phone Unavailable Primary Care Provider Unavailabl e Encounter Details Date Type Department Care Team (Late st Contact Info) Description 01/03/2022 Transcribed Document [facility] [place] [facility] [place] [address] ProviderCarlos MD [facility] [place] [address] Social History Tobacco Use Types [...] [place] Emergency Contact #1 Phone Number : [phone] Emergency Contact #1 Relationship : girlfriend Emergency Contact #2 : none Emergency Contact #2 Phone Number : none Emergency Contact #2 Relationship : none Primary Language : Romanian Communication Barrier : Cognitive Data Processing Supervisor Needed : No Ang Regan NON EMP [...] Level : 46 or > High Risk [place] Fall Interventions : Adequate lighting, Assistive devices [...] Source : Stated Height Entry Format : [place] Height, Feet : 5 ft(Converted to: 152 cm, 60 Inch) Height, Inches : 8 Inch(Converted to: 0 ft 8 Inch, 20.32 cm) Clinical Height : 172.72 cm [place] Body Weight : 67 kg Ang Regan NON EMP RN - 01/03/2022 21:38 EDT Estimated Weight Type of Weight Measurement Est : [place] Weight, est lb : 260 lb(Converted to: [...] Jass MarshallpaulineSHAYE RN - 01/03/2022 21:38 EDT [place] Suicide Severity Rating Scale (C-SSRS) CSSRS Past [...] Jass MarshallpaulineSHAYE RN - 01/03/2022 21:38 EDT documented in this encounter Plan of Treatment Not on file documented as of this encounter Visit Diagnoses Not on filedocumented in this encounter
--- OUTSIDE RECORDS SUMMARY | 2025-06-12 10:59 | XMS_ITS | Encounter Summary ---
Author Organization [employer] ([place], [place], [place], [place]) Address [address] [place] [address] Care Team Providers Care Elementary School Teacher'S Aide Name Role Phone Unavailable Primary Care Provider Unavailabl e Encounter Details Date Type Department Care Team (Late st Contact Info) Description 01/08/2022 Transcribed Document [facility] [place] [address] [place] [address] ProviderCarlos MD [address] [place] [address] Social History Tobacco Use Types [...] 12:49 EDT by RODDY PHILLIPS RN - Scrubber Operator Final Discharge Planning Discharge Arrangements : Patient [...] : Yes Discharge To Care Management : Home/Residential/Skilled Nursing or Self Care -01 RODDY PHILLIPS, RN - Scrubber Operator - 01/08/2022 12:49 EDT documented in this encounter Plan of Treatment Not on file documented as of this encounter Visit Diagnoses Not on filedocumented in this encounter
--- OUTSIDE RECORDS SUMMARY | 2025-06-12 10:59 | XMS_ITS | Clinical Summary ---
Author Organization [employer] ([place], [place], [place], [place]) Address [address] [place] [address] Care Team Providers Care Outboard Technician Name Role Phone Unavailable Primary Care [...]
--- OUTSIDE RECORDS SUMMARY | 2025-06-12 10:59 | XMS_ITS | Encounter Summary ---
Author Organization [employer] ([place], [place], [place], [place]) Address [address] [place] [address] Care Team Providers Care District Wire Chief Name Role Phone Unavailable Primary Care Provider Unavailabl e Encounter Details Date Type Department Care Team (Late st Contact Info) Description 01/06/2022 Transcribed Document [facility] [place] [facility] [place] [address] ProviderCarlos MD [facility] [place] [address] Social History Tobacco Use Types [...] Medical At risk for violence / IMO [id number] / Confirmed History of obstructive sleep apnea / IMO [id number] / Confirmed, Active Problems (8) At risk [...] at this point and will keep watching. Electronically signed by Jayde Babin Conversion Department Of Natural Resources Officer Cerner at 02/02/2023 1:55 PM CDT documented in this encounter Plan of Treatment Not on file documented as of this encounter Visit Diagnoses Not on filedocumented in this encounter
--- OUTSIDE RECORDS SUMMARY | 2025-06-12 10:59 | XMS_ITS | Encounter Summary ---
Author Organization [employer] ([place], [place], [place], [place]) Address [address] [place] [address] Care Team Providers Care Radar Air Traffic Controller Name Role Phone Unavailable Primary Care Provider Unavailabl e Encounter Details Date Type Department Care Team (Late st Contact Info) Description 01/03/2022 Transcribed Document [facility] [place] [address] ProviderCarlos MD [address] [place] [address] Social History Tobacco Use Types [...] in accordance with the flexibilities announced by [facility] limited examination is performed. General: Well [...] # 0.72 x10(3)/uL (Low) 01/03/2022 21:48 EDT [place] % 8.9 % 01/03/2022 21:48 EDT [place] # 0.73 K/uL 01/03/2022 21:48 EDT Eos [...]
--- OUTSIDE RECORDS SUMMARY | 2025-06-12 10:59 | XMS_ITS | Encounter Summary ---
Author Organization [employer] ([place], [place], [place], [place]) Address [address] [place] [address] Care Team Providers Care Topographical Surveyor Name Role Phone Unavailable Primary Care Provider Unavailabl e Encounter Details Date Type Department Care Team (Late st Contact Info) Description 01/06/2022 Transcribed Document [facility] [place] [address] [place] [address] ProviderCarlos MD [address] [place] [address] Social History Tobacco Use [...]
--- OUTSIDE RECORDS SUMMARY | 2025-06-12 10:59 | XMS_ITS | Encounter Summary ---
Author Organization [employer] ([place], [place], [place], [place]) Address [address] [place] [address] Care Team Providers Care Aviation Electrical Technician Name Role Phone Unavailable Primary Care Provider Unavailabl e Encounter Details Date Type Department Care Team (Late st Contact Info) Description 01/08/2022 Transcribed Document [facility] [place] Family Medicine [address] [place] [address] ProviderCarlos MD [address] [place] [address] Social History Tobacco Use Types [...] Carlos ProviderMD - 01/08/2022 11:05 AM CDT [facility] [place], [place] [address] INEZ SHOOK JR :1955 Visit Time:01/03/2022 Your [...] you Where: [address] [place] [address]- Business (1) Follow Up with SINCERE BONILLA When 01/15/2022 03:15 PM EDT Comments PCP appt made, Bring discharge instructions with you Where: [address] [place] [address]- Medications What How Much When Instructions Next Dose hydrALAZINE (hydrALAZINE 25 mg oral tablet) 1 Tablet(s) Oral Two Times A Day Duration: 30 Day(s) Pickup at [facility] this evening Non Formulary (lab draw) See [...] improves and your are cleared by your sign language translator to resume higher dose. Pickup at [facility] this evening gabapentin (gabapentin 600 mg oral [...] release) Oral Every Day tomorrow Pharmacy Information [facility]: [address] [place] [address] [address] [place], [place] [phone] Take your medications faithfully. Do NOT skip [...] these instructions at home: Medicines ??? Take jfsv-xoc-rzgpzjg and prescription medicines only as told by [...] important. Where to find more information ??? [place] Association of Kidney Patients: www.aakp.org ??? National Kidney Foundation: www.kidney.org ??? [place] Kidney Fund: www.akfinc.org ??? [facility] [...] provider. Document Revised: 08/14/2020 Document Reviewed: 08/14/2020 ElseKeycoopt Patient Education ?? 2020 MeetMe, Inc.. Heart Failure Action Plan A heart failure [...] Follow these instructions at home: ??? Take kdbp-nlh-avdpvcr and prescription medicines only as told by your health care provider. ??? Weigh yourself daily. Your target weight is lb ( kg). ? Call your health care provider if you gain more than lb ( kg) in a day, or more than lb ( kg) in one week. ??? Eat a heart-healthy diet. Work with a diet and medical specialist (dietitian) to create an eating plan that is best for you. ??? Keep all follow-up visits as told by your health care provider. This is important. Where to find more information ??? [place] Heart Association: www.heart.org Summary ??? Follow the [...] provider. Document Revised: 09/17/2018 Document Reviewed: 11/14/2017 ElseKeycoopt Patient Education ?? 2020 Elsevier Inc. Chronic [...] these instructions at home: Medicines ??? Take cluy-omr-rrsdxet and prescription medicines only as told by [...] cannot use soap and water, use hand copyright expert. ??? During flu season, avoid areas that [...] provider. Document Revised: 09/17/2018 Document Reviewed: 11/09/2017 ElseKeycoopt Patient Education ?? 2020 GoodData Inc. Carbohydrate Counting for Diabetes Mellitus, Adult [...] foods that contain carbohydrates: ??? Rice. ??? [place]. ??? Milk. ??? Strawberries. 2. Calculate how [...] snacks. Where to find more information ??? [place] Diabetes Association: www.diabetes.org ??? Centers for Disease [...] provider. Document Revised: 10/04/2020 Document Reviewed: 10/05/2020 GoodData Patient Education ?? 2020 MeetMe, Inc.. Diabetes Mellitus and Skin Care Diabetes, also [...] sclerosis). ??? Brown or red, ring-shaped or dgev-ller-knzudy patches of skin on the ears or [...] provider. Document Revised: 07/10/2020 Document Reviewed: 07/24/2020 GoodData Patient Education ?? 2020 GoodData Inc. Diabetes Mellitus and Nutrition, Adult When [...] Carrots. Green beans. Tomatoes. Peppers. Onions. Cucumbers. [place] sprouts. Grains Whole grains, such as whole-wheat [...] Do I need to meet with a informatics educator? Do I need to meet with a dietitian? What number can I call if I have questions? When are the best times to check my blood glucose? Where to find more information: ??? [place] Diabetes Association: diabetes.org ??? Academy of Nutrition and Dietetics: www.eatright.org ??? National [place] of Diabetes and Digestive and Kidney Diseases: [...] provider. Document Revised: 09/11/2020 Document Reviewed: 09/11/2020 GoodData Patient Education ?? 2020 MeetMe, Inc.. gabapentin (GA ba PEN tin) Gralise, Horizant, [...] are a day sleeper or work a environmental field office manager. Some people have thoughts about suicide [...] may report side effects to FDA at 4-960-LKG-6181. What other drugs will affect gabapentin? Using gabapentin with other drugs that make you drowsy or slow your breathing can cause dangerous side effects or . Ask your doctor before using opioid medication, a sleeping pill, cold or allergy medicine, a muscle relaxer, or medicine for anxiety or seizures. Other drugs may affect gabapentin, including prescription and bsjm-kql-xaswboh medicines, vitamins, and herbal products. Tell your [...] to ensure that the information provided by [employer]. ('[employer]') is accurate, up-to-date, and complete, but no guarantee is made to that effect. Drug information contained herein may be time sensitive. [employer] information has been compiled for use by healthcare practitioners and consumers in the [place] and therefore [employer] does not warrant that uses outside of the [place] are appropriate, unless specifically indicated otherwise. [employer] drug information does not endorse drugs, diagnose patients or recommend therapy. [employer] drug information is an informational resource designed [...] effective or appropriate for any given patient. [facility] does not assume any responsibility for any aspect of healthcare administered with the aid of information [facility] provides. The information contained herein is not intended to cover all possible uses, directions, precautions, warnings, drug interactions, allergic reactions, or adverse effects. If you have questions about the drugs you are taking, check with your doctor, nurse or pharmacist. Copyright 5178-3517 [facility] Hospital[facility] Positioning TechnologiesPublic Solution [facility]. Version: 17.. Revision Date: 11/13/2020. hydralazine (ju [...] may report side effects to FDA at 6-558-CDI-8771. What other drugs will affect hydralazine? Tell your doctor about all your current medicines and any you start or stop using, especially: ?? diazoxide (an injectable blood pressure medication); or ?? an MAO inhibitor--isocarboxazid, linezolid, methylene blue injection, phenelzine, rasagiline, selegiline, tranylcypromine, and others. This list is not complete. Other drugs may interact with hydralazine, including prescription and ughl-bfw-vnvbhgn medicines, vitamins, and herbal products. Not all [...] to ensure that the information provided by [employer]. ('[employer]') is accurate, up-to-date, and complete, but no guarantee is made to that effect. Drug information contained herein may be time sensitive. [employer] information has been compiled for use by healthcare practitioners and consumers in the [place] and therefore [employer] does not warrant that uses outside of the [place] are appropriate, unless specifically indicated otherwise. [employer] drug information does not endorse drugs, diagnose patients or recommend therapy. [employer] drug information is an informational resource designed [...] effective or appropriate for any given patient. [employer] does not assume any responsibility for any aspect of healthcare administered with the aid of information [employer] provides. The information contained herein is not intended to cover all possible uses, directions, precautions, warnings, drug interactions, allergic reactions, or adverse effects. If you have questions about the drugs you are taking, check with your doctor, nurse or pharmacist. Copyright 8464-2455 [employer]. Version: 5.01. Revision Date: 10/28/2017. lisinopril (lyse [...] have an allergic reaction if you are -Burmese. Call your doctor at once if you have: ?? a light-headed feeling, like you might pass out; ?? fever, sore throat; documented in this encounter Plan of Treatment Not on file documented as of this encounter Visit Diagnoses Not on filedocumented in this encounter
--- OUTSIDE RECORDS SUMMARY | 2025-06-12 10:59 | XMS_ITS | Encounter Summary ---
Author Organization [employer] ([place], [place], [place], [place]) Address [address] [place] [address] Care Team Providers Care Monorail Operator Name Role Phone Unavailable Primary Care Provider Unavailabl e Encounter Details Date Type Department Care Team (Late st Contact Info) Description 01/05/2022 Transcribed Document [facility] [place] [address] [place] [address] ProviderCarlos MD [address] [place] [address] Social History Tobacco Use Types [...] Historical ProviderMD - 01/05/2022 2:00 AM CDT Driller Brake Lining Details Entered On: 01/05/2022 0:20 EDT Performed [...]
--- OUTSIDE RECORDS SUMMARY | 2025-06-12 10:59 | XMS_ITS | Encounter Summary ---
Author Organization [employer] ([place], [place], [place], [place]) Address [address] [place] [address] Care Team Providers Care Sample Maker Original Name Role Phone Unavailable Primary Care Provider Unavailabl e Encounter Details Date Type Department Care Team (Late st Contact Info) Description 01/08/2022 Transcribed Document [facility] [place] [address] [place] [address] ProviderCarlos MD [address] [place] [address] Social History Tobacco Use Types [...] 01/08/2022 2:24 PM CDT SAMINA BONILLA, [address] [place] [address] Re: INEZ SHOOK Date of Visit: 01/03/2022 [...] is strictly prohibited. Sincerely, ANA TORRES [address] [facility] [address] [place] [address] The following document(s) were included in the letter: January 08, 2022 10:37:00 EDT - (01/08/2022) Discharge Summary * documented in this encounter Plan of Treatment Not on file documented as of this encounter Visit Diagnoses Not on filedocumented in this encounter
--- OUTSIDE RECORDS SUMMARY | 2025-06-12 10:59 | XMS_ITS | Encounter Summary ---
Author Organization [employer] ([place], [place], [place], [place]) Address [address] [place] [address] Care Team Providers Care Brick Or Block Maker Name Role Phone Unavailable Primary Care Provider Unavailabl e Encounter Details Date Type Department Care Team (Late st Contact Info) Description 01/07/2022 Transcribed Document [facility] [place] [address] [place] [address] ProviderCarlos MD [address] [place] [address] Social History Tobacco Use Types [...] 14:16 EDT by RODDY PHILLIPS RN - Grain ManagerClub Director Progress Note Discharge Arrangements : Patient Post-Acute Information Patient Name: INEZ SHOOK JR Gender: Male : [birth year] Age: 66 Years No Post-Acute Placement(s) Listed No Post-Acute Service(s) Listed No Curaspan Referral(s) Listed Patient Discharge Goal : Home Is the Patient Meeting Medical Necessity : Yes Did you Attend Multidisciplinary Rounds? : Yes RODDY PHILLIPS RN - Grain Manager - 01/07/2022 14:16 EDT Narrative Progress Note Narrative Progress Note : RRS Mod Day 01/20 Patient was admitted for renal failure. Hx CHF, COPD. Consults to neph. Order to discontinue his schmid catheter today. Per hospitalist note if his creatinine stays under 6 he can go home tomorrow 01/08. Probable discharge home with girlfriend to transport. DCP: home RODDY PHILLIPS RN - Grain Manager - 01/07/2022 14:16 EDT Electronically signed by Jayde Babin Conversion Location And Measurement Technician Cerner at 02/02/2023 1:53 PM CDT documented in this encounter Plan of Treatment Not on file documented as of this encounter Visit Diagnoses Not on filedocumented in this encounter
--- OUTSIDE RECORDS SUMMARY | 2025-06-12 10:59 | XMS_ITS | Encounter Summary ---
Author Organization [employer] ([place], [place], [place], [place]) Address [address] [place] [address] Care Team Providers Care Software Quality Assurance Engineer Name Role Phone Unavailable Primary Care Provider Unavailabl e Encounter Details Date Type Department Care Team (Late st Contact Info) Description 01/07/2022 Transcribed Document [facility] [place] [facility] [place] [address] ProviderCarlos MD [facility] [place] [address] Social History Tobacco Use Types [...] Medical At risk for violence / IMO [id number] / Confirmed History of obstructive sleep apnea / IMO [id number] / Confirmed, Active Problems (8) At risk [...]
--- OUTSIDE RECORDS SUMMARY | 2025-06-12 10:59 | XMS_ITS | Encounter Summary ---
Author Organization [employer] ([place], [place], [place], [place]) Address [address] [place] [address] Care Team Providers Care Director Airport Name Role Phone Unavailable Primary Care Provider Unavailabl e Encounter Details Date Type Department Care Team (Late st Contact Info) Description 01/08/2022 Transcribed Document [facility] [place] [facility] [place] [address] ProviderCarlos MD [address] [place] [address] Social History Tobacco Use Types [...] On: 01/08/2022 14:03 EDT by Angelique Joyce, Rate Reviewer Primary Insurance Authorization Authorization and Policy Numbers : Insurance 1 Health Plan: [place] [employer] Policy Number: [id number] Authorization Number: Insurance Primary Name : [place] [employer] - Policy Number: [id number] Authorization Status-Primary : Drg approved Auth/Referral Contact Name-Primary : DC Reference Number-Primary : [id number] Authorization Number-Primary : [id number] Number of Days Authorized-Primary : 5 Day(s) Authorized Service Begin Date-Primary : 01/03/2022 EDT Authorized Service End Date-Primary : 01/08/2022 EDT Authorization Comments-Primary : Authorized per fax 01/08/22 @ 1237. Approved DRG inpatient length of stay 01/03 - 01/09. Historical Authorization Comments-Primary : Comment 1: Clinicals faxed via [employer] for IP approval (ISAIAS NAVARRO RN 01/07/2022 12:21) Comment 2: AUTH SUBMITTED VIA [employer] /w CLINICALS ATTACHED (Olive Dolan RN 01/04/2022 15:27) Angelique Joyce, Rate Reviewer - 01/08/2022 14:03 EDT documented in this encounter Plan of Treatment Not on file documented as of this encounter Visit Diagnoses Not on filedocumented in this encounter
--- OUTSIDE RECORDS SUMMARY | 2025-06-12 10:59 | XMS_ITS | Encounter Summary ---
Author Organization [employer] ([place], [place], [place], [place]) Address [address] [place] [address] Care Team Providers Care It Admin Name Role Phone Unavailable Primary Care Provider Unavailabl e Encounter Details Date Type Department Care Team (Late st Contact Info) Description 01/07/2022 Transcribed Document [facility] [place] [address] [place] [address] ProviderCarlos MD [address] [place] [address] Social History Tobacco Use Types [...] december 2021 and that he is at [facility], knows correct age and . no tremor. [...] creatinine < 6.0 Ana Tabor Hospitalist pager- [phone] Electronically signed by Talya, [facility] Conversion Driver License Technician Cerner at 02/02/2023 2:01 PM CDT documented in this encounter Plan of Treatment Not on file documented as of this encounter Visit Diagnoses Not on filedocumented in this encounter
--- OUTSIDE RECORDS SUMMARY | 2025-06-12 10:59 | XMS_ITS | Encounter Summary ---
Author Organization [employer] ([place], [place], [place], [place]) Address [address] [place] [address] Care Team Providers Care Floor Covering Layer Name Role Phone Unavailable Primary Care Provider Unavailabl e Encounter Details Date Type Department Care Team (Late st Contact Info) Description 01/03/2022 Transcribed Document [facility] [place] [facility] [place] [address] ProviderCarlos MD [facility] [place] [address] Social History Tobacco Use Types [...]
--- OUTSIDE RECORDS SUMMARY | 2025-06-12 10:59 | XMS_ITS | Encounter Summary ---
Author Organization [employer] ([place], [place], [place], [place]) Address [address] [place] [address] Care Team Providers Care Reimbursement Rep Name Role Phone Unavailable Primary Care Provider Unavailabl e Encounter Details Date Type Department Care Team (Late st Contact Info) Description 01/07/2022 Transcribed Document [facility] [place] [address] [place] [address] ProviderCarlos MD [address] [place], [...] Policy Numbers : Insurance 1 Health Plan: [place] [employer] Policy Number: [id number] Authorization Number: Insurance Primary Name : [place] [employer] Policy Number: [id number] Authorization Status-Primary : Awaiting callback Reference Number-Primary : [id number] Authorized Service Begin Date-Primary : 01/03/2022 EDT Authorization Comments-Primary : Clinicals faxed via [employer] for IP approval Historical Authorization Comments-Primary : Comment 1: AUTH SUBMITTED VIA [employer] /w CLINICALS ATTACHED (Olive Dolan RN 01/04/2022 15:27) ISAIAS NAVARRO RN - 01/07/2022 12:21 EDT Electronically signed by Talya [facility] Conversion Butter Maker Cerner at 02/02/2023 1:51 PM CDT documented in this encounter Plan of Treatment Not on file documented as of this encounter Visit Diagnoses Not on filedocumented in this encounter
--- OUTSIDE RECORDS SUMMARY | 2025-06-12 10:59 | XMS_ITS | Encounter Summary ---
Author Organization [employer] ([place], [place], [place], [place]) Address [address] [place] [address] Care Team Providers Care Manager Of Internal Name Role Phone Unavailable Primary Care Provider Unavailabl e Encounter Details Date Type Department Care Team (Late st Contact Info) Description 01/05/2022 Transcribed Document [facility] [place] [facility] [place] [address] [place] [address] ProviderCarlos MD [address] [place] [address] Social History Tobacco Use Types [...]
--- OUTSIDE RECORDS SUMMARY | 2025-06-12 10:59 | XMS_ITS | Encounter Summary ---
Author Organization [employer] ([place], [place], [place], [place]) Address [address] [place] [address] Care Team Providers Care Electronic Health Records Specialist Name Role Phone Unavailable Primary Care Provider Unavailabl e Encounter Details Date Type Department Care Team (Late st Contact Info) Description 01/06/2022 Transcribed Document [facility] [place] Family Medicine [address] [place] [address] ProviderCarlos MD [address] [place] [address] Social History Tobacco Use Types [...] 15:50 EDT by RODDY PHILLIPS RN - Tool Maker Apprentice Initial Assessment I Previously Documented Living Environment : No qualifying data available. Living Situation : Home Patient Lives With : Significant other(s) Emergency Contact #1 : Izabela Sanchezn Emergency Contact #1 Phone Number : [phone] Emergency Contact #1 Relationship : girlfriend Emergency [...] Guardian : No RODDY PHILLIPS RN - Tool Maker Apprentice - 01/06/2022 15:50 EDT Initial Assessment II Current Home Treatments and Equipment : Walker RODDY PHILLIPS RN - Tool Maker Apprentice - 01/06/2022 15:50 EDT Discharge Needs I Anticipated Discharge Date : 01/07/2022 EDT Anticipated Discharge To, CM : Home independently Current Home Treatment/Equipment : Current Home Treatment/Equipment No qualifying data available. Documentation Status Complete : Yes RODDY PHILLIPS RN - Tool Maker Apprentice - 01/06/2022 15:50 EDT Discharge Needs II Professional Skilled Services : Professional Skilled Services No qualifying data available. Needs Assistance with Transportation : No Patient Discharge Goal : Home RODDY PHILLIPS RN - Tool Maker Apprentice - 01/06/2022 15:50 EDT Narrative Note Narrative [...] girlfriend to transport. RODDY PHILLIPS RN - Tool Maker Apprentice - 01/06/2022 15:50 EDT documented in this encounter Plan of Treatment Not on file documented as of this encounter Visit Diagnoses Not on filedocumented in this encounter
--- OUTSIDE RECORDS SUMMARY | 2025-06-12 10:59 | XMS_ITS | Encounter Summary ---
Author Organization [employer] ([place], [place], [place], [place]) Address [address] [place] [address] Care Team Providers Care Director Of Instruction Name Role Phone Unavailable Primary Care Provider Unavailabl e Encounter Details Date Type Department Care Team (Late st Contact Info) Description 01/03/2022 Transcribed Document [facility] [place] [address] [place] [address] ProviderCarlos MD [address] [place] [address] Social History Tobacco Use Types [...]
--- OUTSIDE RECORDS SUMMARY | 2025-06-12 10:59 | XMS_ITS | Encounter Summary ---
Author Organization [employer] ([place], [place], [place], [place]) Address [address] [place] [address] Care Team Providers Care Package Winder Name Role Phone Unavailable Primary Care Provider Unavailabl e Encounter Details Date Type Department Care Team (Late st Contact Info) Description 01/05/2022 Transcribed Document [facility] [place] [facility] [place] [address] ProviderCarlos MD [address] [place] [address] Social History Tobacco Use Types [...] (DEC 18) Radiology Results (Last 48 hours) [id number] -- 01/03/2022 20:35 US Renal Comp (01/04/2022 [...] when ZAHRA resolved. Ana Tabor Hospitalist pager- [phone] documented in this encounter Plan of Treatment Not on file documented as of this encounter Visit Diagnoses Not on filedocumented in this encounter
--- OUTSIDE RECORDS SUMMARY | 2025-06-12 10:59 | XMS_ITS | Encounter Summary ---
Author Organization [employer] ([place], [place], [place], [place]) Address [address] [place] [address] Care Team Providers Care Cementing Machine Operator Name Role Phone Unavailable Primary Care Provider Unavailabl e Encounter Details Date Type Department Care Team (Late st Contact Info) Description 01/08/2022 Transcribed Document [facility] [place] [facility] [place] [address] ProviderCarlos MD [address] [place] [address] Social History Tobacco Use Types [...] 14 mL/min/1.73m2 LOW 01/08/2022 09:26 Bun/Creatinine 21.0 [place] 01/08/2022 09:26 eGFR NonAfrican 12 mL/min/1.73m2 LOW 01/08/2022 09:26 Creatinine Level 4.90 mg/dL [place] 01/08/2022 09:26 Sodium Level 143 mmol/L 01/08/2022 09:26 Potassium Level 3.7 mmol/L 01/08/2022 09:26 Chloride Level 109 mmol/L 01/08/2022 09:26 Carbon Dioxide Level 22 mmol/L 01/08/2022 09:26 Anion Gap 16 01/08/2022 09:26 Blood Urea Nitrogen 103 mg/dL CRIT 01/08/2022 09:26 Glucose Level 137 mg/dL [place] 01/08/2022 09:26 Albumin Level 2.5 Gram/dL LOW [...] 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 Shook is a 66 year old male with history of CHF type unknown, HTN, INOCENTE, COPD who presented to outside hospital with one week of nausea and vomiting, there he was found ot have creatinine over 11 and was sent to [facility] for nephrology evaluation. Here IV [...]
--- OUTSIDE RECORDS SUMMARY | 2025-06-12 10:59 | XMS_ITS | Encounter Summary ---
Author Organization [employer] ([place], [place], [place], [place]) Address [address] [place] [address] Care Team Providers Care Construction Flagger Name Role Phone Unavailable Primary Care Provider Unavailabl e Encounter Details Date Type Department Care Team (Late st Contact Info) Description 01/08/2022 Transcribed Document [facility] [place] [address] [place] [address] ProviderCarlos MD [address] [place] [address] Social History Tobacco Use Types Packs/Day Years [...]
--- OUTSIDE RECORDS SUMMARY | 2025-06-12 10:59 | XMS_ITS | Encounter Summary ---
Author Organization [employer] ([place], [place], [place], [place]) Address [address] [place] [address] Care Team Providers Care Pipeline Systems Operator Name Role Phone Unavailable Primary Care Provider Unavailabl e Encounter Details Date Type Department Care Team (Late st Contact Info) Description 01/06/2022 Transcribed Document [facility] [place] [address] [place] [address] ProviderCarlos MD [address] [place] [address] Social History Tobacco Use Types [...] Historical ProviderMD - 01/06/2022 2:00 AM CDT Cigar Patcher Details Entered On: 01/06/2022 2:10 EDT Performed [...]
--- OUTSIDE RECORDS SUMMARY | 2025-06-12 10:59 | XMS_ITS | Encounter Summary ---
Author Organization [employer] ([place], [place], [place], [place]) Address [address] [place] [address] Care Team Providers Care Gutter Installer Name Role Phone Unavailable Primary Care Provider Unavailabl e Encounter Details Date Type Department Care Team (Late st Contact Info) Description 01/08/2022 Transcribed Document [facility] [place] [facility] [place] [address] ProviderCarlos MD [address] [place] [address] Social History Tobacco Use Types [...] On: 01/08/2022 8:33 EDT by Celia Rodriguez, SERICULTURE TEACHER Patient Resource Center Provider Status : EST Other Established Provider Name : Kaveh Ryan Patient Phone Number : [phone] Patient Insurance Type : Medicaid (ex. [employer], [...] at ED : Other Primary Language : Honduran Patient Resource Center Comment : PCP and NEPH appts made Follow Up Needed : No Celia Rodriguez, SERICULTURE TEACHER - 01/08/2022 8:33 EDT Electronically signed by [facility] Conversion Paper Plate Machine Tender Cerner at 02/02/2023 2:06 PM CDT documented in this encounter Plan of Treatment Not on file documented as of this encounter Visit Diagnoses Not on filedocumented in this encounter
--- OUTSIDE RECORDS SUMMARY | 2025-06-12 10:59 | XMS_ITS | Encounter Summary ---
Author Organization [employer] ([place], [place], [place], [place]) Address [address] [place] [address] Care Team Providers Care Defence Force Senior Officer Name Role Phone Unavailable Primary Care Provider Unavailabl e Encounter Details Date Type Department Care Team (Late st Contact Info) Description 01/08/2022 Transcribed Document [facility] [place] [facility] [place] [address] ProviderCarlos MD [facility] [place] [address] Social History Tobacco Use Types [...] Medical At risk for violence / IMO [id number] / Confirmed History of obstructive sleep apnea / IMO [id number] / Confirmed, Active Problems (8) At risk [...]
--- OUTSIDE RECORDS SUMMARY | 2025-06-12 10:59 | XMS_ITS | Encounter Summary ---
Author Organization [employer] ([place], [place], [place], [place]) Address [address] [place] [address] Care Team Providers Care Senior Software Tester Name Role Phone Unavailable Primary Care Provider Unavailabl e Encounter Details Date Type Department Care Team (Late st Contact Info) Description 01/08/2022 Transcribed Document [facility] [place] [address] [place] [address] ProviderCarlos MD [address] [place] [address] Social History Tobacco Use Types [...] On: 01/08/2022 14:04 EDT by Angelique Joyce, Sponge Press Operator Primary Insurance Authorization Authorization and Policy Numbers : Insurance 1 Health Plan: [place] [employer] Policy Number: [id number] Authorization Number: Insurance Primary Name : [place] [employer] - Policy Number: [id number] Authorization Status-Primary : Drg approved Auth/Referral Contact Name-Primary : DC Reference Number-Primary : [id number] Authorization Number-Primary : [id number] Number of Days Authorized-Primary : 5 Day(s) Authorized Service Begin Date-Primary : 01/03/2022 EDT Authorized Service End Date-Primary : 01/08/2022 EDT Authorization Comments-Primary : Discharge summary faxed. Historical Authorization Comments-Primary : Comment 1: Authorized per fax 01/08/22 @ 1237. Approved DRG inpatient length of stay 01/03 - 01/09. (Angelique Joyce, Sponge Press Operator 01/08/2022 14:03) Comment 2: Clinicals faxed via [employer] for IP approval (ISAIAS NAVARRO RN 01/07/2022 12:21) Comment 3: AUTH SUBMITTED VIA [employer] /w CLINICALS ATTACHED (Olive Dolan RN 01/04/2022 15:27) Angelique Joyce, Sponge Press Operator - 01/08/2022 14:04 EDT Electronically signed by Jayde Babin Conversion Clinical Mental Health Counselor Cerner at 02/02/2023 1:40 PM CDT documented in this encounter Plan of Treatment Not on file documented as of this encounter Visit Diagnoses Not on filedocumented in this encounter
--- OUTSIDE RECORDS SUMMARY | 2025-06-12 10:59 | XMS_ITS | Encounter Summary ---
Author Organization [employer] ([place], [place], [place], [place]) Address [address] [place] [address] Care Team Providers Care Microwave Radio Technician Name Role Phone Unavailable Primary Care Provider Unavailabl e Encounter Details Date Type Department Care Team (Late st Contact Info) Description 01/05/2022 Transcribed Document [facility] [place] Medicine [address] [place] [address] ProviderCarlos MD [address] [place], [place] [...] Paulson and Dr. Geniedy Note dictated with [employer].sm recognition system Medications acetaminophen, 650 mg= 2 [...] mg= 1 Tab, Oral, Daily Vitamin D2, 93627 Units= 1 Cap, Oral, Weekly Lab Results [...] 133 mg/dL 01/05/2022 10:47 EDT Sodium Ur [place] 31 mMole/Liter 01/05/2022 10:47 EDT CK 311 [...] # 0.58 x10(3)/uL (Low) 01/05/2022 08:52 EDT [place] % 5.9 % 01/05/2022 08:52 EDT [place] # 0.31 K/uL 01/05/2022 08:52 EDT Eos [...]
--- OUTSIDE RECORDS SUMMARY | 2025-06-12 10:59 | XMS_ITS | Encounter Summary ---
Author Organization [employer] ([place], [place], [place], [place]) Address [address] [place] [address] Care Team Providers Care Water Quality Technician Name Role Phone Unavailable Primary Care Provider Unavailabl e Encounter Details Date Type Department Care Team (Late st Contact Info) Description 01/06/2022 Transcribed Document [facility] [place] [address] [place] [address] ProviderCarlos MD [address] [place] [address] Social History Tobacco Use Types [...] (JAN 03) Radiology Results (Last 48 hours) [id number] -- 01/03/2022 20:35 CR Abdomen 1 Vw [...] in 2 days. Ana Tabor Hospitalist pager- [phone] documented in this encounter Plan of Treatment Not on file documented as of this encounter Visit Diagnoses Not on filedocumented in this encounter
--- OUTSIDE RECORDS SUMMARY | 2025-06-12 10:59 | XMS_ITS | Encounter Summary ---
Author Organization [email or web address] ([place], [place], [place], [place]) Address [address] [place] [address] Care Team Providers Care Fruit Dryer Name Role Phone Unavailable Primary Care Provider Unavailabl e Encounter Details Date Type Department Care Team (Late st Contact Info) Description 01/08/2022 Transcribed Document [facility] [place] [address] [place] [address] ProviderCarlos MD [address] [place] [address] Social History Tobacco Use Types [...]
--- OUTSIDE RECORDS SUMMARY | 2025-06-12 10:59 | XMS_ITS | Encounter Summary ---
Author Organization [employer] ([place], [place], [place], [place]) Address [address] [place] [address] Care Team Providers Care Configurator Name Role Phone Unavailable Primary Care Provider Unavailabl e Encounter Details Date Type Department Care Team (Late st Contact Info) Description 01/06/2022 Transcribed Document [facility] Family Medicine [address] [place] [address] ProviderCarlos MD [address] [place] [address] Social History Tobacco Use Types [...] On: 01/06/2022 13:33 EDT by Donaldo Darden Commercial Retoucher Cert Lead Meds to Bed Enrollment Patient Enrollment Decision: : Yes/enroll in meds to bed program Donaldo Darden Commercial Retoucher Cert Lead - 01/06/2022 13:33 EDT documented in this encounter Plan of Treatment Not on file documented as of this encounter Visit Diagnoses Not on filedocumented in this encounter
--- OUTSIDE RECORDS SUMMARY | 2025-06-12 10:59 | XMS_ITS | Encounter Summary ---
Author Organization [employer] ([place], [place], [place], [place]) Address [address] [place] [address] Care Team Providers Care Body Stylist Name Role Phone Unavailable Primary Care Provider Unavailabl e Encounter Details Date Type Department Care Team (Late st Contact Info) Description 01/05/2022 Transcribed Document [facility] [place] [address] ProviderCarlos MD [address] [place] [address] Social History Tobacco Use Types [...] assessment additional narrative Description of Event : SHIRT CLOSER approached RN at shift change stating that [...] comfortable with call light. At approximately 0015, SHIRT CLOSER approached RN stating that patient had again [...]
--- OUTSIDE RECORDS SUMMARY | 2025-06-12 10:59 | XMS_ITS | Encounter Summary ---
Author Organization [employer] ([place], [place], [place], [place]) Address [address] [place] [address] Care Team Providers Care Armhole Raiser Lockstitch Name Role Phone Unavailable Primary Care Provider Unavailabl e Encounter Details Date Type Department Care Team (Late st Contact Info) Description 01/08/2022 Transcribed Document [facility] [place] [address] [place] [address] ProviderCarlos MD [address] [place] [address] Social History Tobacco Use Types [...] EDT Electronically signed by Jayde Babin Conversion Health Safety And Environment Manager Cerner at 02/02/2023 2:04 PM CDT documented in this encounter Plan of Treatment Not on file documented as of this encounter Visit Diagnoses Not on filedocumented in this encounter
--- OUTSIDE RECORDS SUMMARY | 2025-06-12 11:00 | XMS_ITS | Encounter Summary ---
Author Organization [employer] ([place], [place], [place], [place]) Address [address] [place] [address] Care Team Providers Care Type Photography Supervisor Name Role Phone Unavailable Primary Care Provider Unavailabl e Encounter Details Date Type Department Care Team (Late st Contact Info) Description 01/08/2022 Transcribed Document [facility] [place] [address] [place] [address] ProviderCarlos MD [address] [place] [address] Social History Tobacco Use Types [...] Historical ProviderMD - 01/08/2022 2:00 AM CDT Family Practice Physician Assistant Details Entered On: 01/08/2022 6:49 EDT Performed [...]
--- OUTSIDE RECORDS SUMMARY | 2025-06-12 11:00 | XMS_ITS | Encounter Summary ---
Author Organization [facility] Address [address] [place] [address] Care Team Providers Care Territory Manager General Sales Name Role Phone Kaveh Ryan MD Primary Care Provider + [phone] Kalli Shipley MD Unavailable + [phone] Reason for Visit * Reason Comments Med Refill Encounter Details Date Type Department Care Team (Late st Contact Info) Description 05/07/2023 [facility]ill [place] [facility] [address] [place] [address] Kalli Shipley MD [address] [place] [address] Social History Tobacco Use Types [...] Description 01/12/2026 11:20 AM EDT Office Visit [facility] [address] [place] [address] Juliann Adrian, MEDICAL IMAGING TECH [address] [facility] [address] [place] [address] documented as of this encounter Visit Diagnoses Not on filedocumented in this encounter Additional Health Concerns Assessment Noted Time A fall risk assessment has been complete d for the patient 02/26/2023 9:15 AM EDT A Body Mass Index follow-up plan has been documented for the patient 02/26/2023 12:36 PM EDT documented as of this encounter Care Teams Territory Manager General Sales Relationship Specialty Start Date End Date Kaveh Ryan MD [address] [facility] [place] [address] PCP - General 05/28/22 Kalli Shipley MD [address] [facility] [address] [place] [address] Service Attending Neurology 05/28/22 documented as of this encounter
--- OUTSIDE RECORDS SUMMARY | 2025-06-12 11:00 | XMS_ITS | Clinical Summary ---
Author Organization [facility] Address [address] [place] [address] Care Team Providers Care Justice Court Deputy Clerk Name Role Phone Kaveh Ryan MD Primary Care Provider + [phone] Kalli Shipley MD Unavailable + [phone] Medications atorvastatin (Lipitor) 80 MG tablet Take [...] of breath. 18 g 04/17/20 22 Active metoprolol tartrate (Lopressor) 25 MG tablet Take 1 tablet (25 mg total) by mouth 2 (two) times a day. 60 tablet 1 04/17/20 22 Active Additional Information Patient not taking.Reason: Other, Reported on 05/12/2025 mometasone-formote rol (Dulera 200) 200-5 MCG/ACT inhaler Inhale 2 puffs 2 (two) times a day. Rinse mouth with water after use to reduce aftertaste and incidence of candidiasis. Do not swallow. 13 g 1 04/17/20 Active Additional Information Patient not taking.Reason: Other, Reported on 12/30/2024 OLANZapine zydis (ZyPREXA) 5 MG disintegrating tablet Take 1 tablet (5 mg total) by mouth every night. 30 tablet 1 04/17/20 Active Additional Information Patient not taking.Reason: Other, Reported on 05/12/2025 levETIRAcetam (Keppra) 1000 MG tablet Take 1 tablet (1,000 mg total) by mouth 2 (two) times a day. 60 tablet 5 04/25/20 22 Active Additional Information Patient not taking.Reported on 05/12/2025 metoprolol succinate XL (Toprol-XL) 50 MG 24 hr tablet Take 1 tablet (50 mg) by mouth in the morning. 05/16/20 22 Active HYDROcodone-acetam inophen ([place]) 5-325 MG tablet 01/27/20 23 Active nitroglycerin [...] needed for erectile dysfunction. Active HYDROcodone-acetam inophen ([place]) 7.5-325 MG tablet Take 7.5 tablets (56.25 [...] (02/25/2022): Added automatically from request for surgery [id number] Thrombocytopenia Resolved Problems Problem Noted Date Diagnosed [...] Encounters Date Type Department Care Team Description 05/12/2025 10:40 AM EDT Office Visit [facility] [address] [place] [address] Juliann Adrian APRN Stage 3a chronic kidney disease ([facility] (Primary Dx); Chronic kidney disease-mineral and bone disorder; Essential hypertension; Diabetes mellitus due to underlying condition with diabetic chronic kidney disease, unspecified CKD stage, unspecified whether long term acute care registered nurse insulin use ([facility]); Coronary artery disease involving [place] coronary artery of [place] heart without angina pectoris 05/12/2025 Travel from Last 3 Months Immunizations Immunization [...] Pulse 79 05/12/2025 10:13 AM EDT Temperature 36.3 C (97.3 F) 09/29/2022 9:05 AM EST Respiratory Rate 18 05/12/2025 10:13 AM EDT Oxygen Saturation 97% 05/12/2025 10:13 AM EDT Inhaled Oxygen Concentration - - Weight 82.1 kg (181 lb) 05/12/2025 10:13 AM EDT Height 170.2 cm (5' 7 ) 05/12/2025 10:13 AM EDT Body Mass Index 28.35 05/12/2025 10:13 AM EDT Plan of Treatment Upcoming Encounters Date Type Department Care Team (Late st Contact Info) Description 01/12/2026 11:20 AM EDT Office Visit [facility] [address] [place] [address] Juliann Adrian, DIRECTOR OF LITIGATION [address] [facility] [address] [place] [address] Health Maintenance Due Date Last [...] 2019 [facility]-Diabetes: Hemoglobin A1C 02/25/202307/2022, 01/30/2022, 10/15/2015 [id number] Vaccine ( - season) 2024 07/21/2022, 09/09/2021, 01/16/2021, Additional history exists [facility]-Influenza Vaccine (#1) 06/19/202511/03, 10/20/2023, 10/29/2022, Additional history exists [facility]-Pneumococcal Vaccine: 50+ Years Completed 01/23/2021, 12/02/2019 [facility]-Hepatitis C Screening Completed 03/19/2022 [facility]-Obesity Intervention Completed 025, 12/30/2024, 08/05/2023, Additional history exists HPV Vaccines Aged Out [...] this topic Medical Devices Implanted Type [facility] Recruiter Device Identifier Shelf Expiration Date Model / Serial / Lot Graft Collagen 5x5cm Durepair Mater - [id number] Implanted:Qty: 1 on 02/26/2022 by Martin Banegas MD at [facility] [employer] (Tissue Service-[id number] 07/18/2023 [id number] / / [id number] Cement Bone Pneum Mix 5cc Strl - [id number] Implanted:Qty: 1 on 02/26/2022 by Martin Banegas MD at [facility] [employer] [facility]-[id number] 12/16/2022 [id number] .[id number] / / [id number] Procedures Procedure Name Priority Date/Time Associated Diagnosis Comments HEPATITIS C ANTIBODY - ED W/REFLEX TO HCV QUANT PCR STAT 03/19/2022 10:48 AM EDT HEMOGLOBIN A1C Add-On 01/30/2022 8:46 PM EDT from Last 3 Months or Most Recently Relevant to Health Maintenance Results * [place] Hepatitis C Antibody (03/19/2022 10:48 AM EDT) Hepatitis C Antibody Negative Negative 03/19/2022 12:52 PM EDT [facility] Blood Venous blood specimen / Unknown Venipuncture / Unknown 03/19/2022 10:48 AM EDT 03/19/2022 11:14 AM EDT us Giles Gonzales MD LAB BLOOD ORDERABLES Radha l Result Performing Organization Address City/[facility] Co de Phone Number HEALTHCARE LAB [address] [place] [address] * (ABNORMAL) Hemoglobin A1c (01/30/2022 8:46 PM [...] Adults <6.0% Children and Adolescents <7.5% Source: Citizen Of [place] Diabetes Association. Standards of medical care in diabetes,2017. Diabetes Care.2017:40 (suppl 1):S1-S135. HbA1c assay performed by an ion-exchange chromatography method that is certified traceable to the DCCT. us Omid Steven MD LAB BLOOD ORDERABLES Final Result Performing Organization Address City/[facility] de Phone Number HEALTHCARE LAB [address] [place] [address] from Last 3 Months or Most Recently Relevant to Health Maintenance Insurance [facility]IC[facility] Advance Directives * DNR/DNI (Latest Code [...] would not be sustained on a ventilator correction. Question Answer Comments DNR determined on/before admission [...] of Healthcare Surrogate: Elias Maldonado Care Teams Justice Court Deputy Clerk Relationship Specialty Start Date End Date Kaveh Ryan MD [address] [place] [address] PCP - General 05/28/22 Kalli Shipley MD [address] [address] Service Attending Neurology 05/28/22
--- OUTSIDE RECORDS SUMMARY | 2025-06-12 11:00 | XMS_ITS | Encounter Summary ---
Author Organization [employer] ([place], [place], [place], [place]) Address [address] [place] [address] Care Team Providers Care Institutional Cook Name Role Phone Unavailable Primary Care Provider Unavailabl e Encounter Details Date Type Department Care Team (Late st Contact Info) Description 01/08/2022 Transcribed Document [facility] [place] [address] [place] [address] ProviderCarlos MD [address] [place] [address] Social History Tobacco Use Types [...] Follow these instructions at home: ??? Take kkjk-uuv-fhwuqnh and prescription medicines only as told by your health care provider. ??? Weigh yourself daily. Your target weight is lb ( kg). ? Call your health care provider if you gain more than lb ( kg) in a day, or more than lb ( kg) in one week. ??? Eat a heart-healthy diet. Work with a diet and animal nutritionist (dietitian) to create an eating plan that is best for you. ??? Keep all follow-up visits as told by your health care provider. This is important. Where to find more information ??? [place] Heart Association: www.heart.org Summary ??? Follow the [...] provider. Document Revised: 09/17/2018 Document Reviewed: 11/14/2017 [employer] Patient Education ? 2020 [employer] Endocrinology Carbohydrate Counting for Diabetes Mellitus, [...] foods that contain carbohydrates: ??? Rice. ??? Anatone. ??? Milk. ??? Strawberries. 2. Calculate how [...] snacks. Where to find more information ??? [place] Diabetes Association: www.diabetes.org ??? Centers for Disease [...] provider. Document Revised: 10/04/2020 Document Reviewed: 10/05/2020 [employer] Patient Education ? 2020 [employer]. Diabetes Mellitus and Skin Care Diabetes, also [...] sclerosis). ??? Brown or red, ring-shaped or vdxv-lizg-kimayy patches of skin on the ears or [...] provider. Document Revised: 07/10/2020 Document Reviewed: 07/24/2020 [employer] Patient Education ? 2020 [employer] Diabetes Mellitus and Nutrition, Adult When [...] Carrots. Green beans. Tomatoes. Peppers. Onions. Cucumbers. [place] sprouts. Grains Whole grains, such as whole-wheat [...] glucose? Where to find more information: ??? [place] Diabetes Association: diabetes.org ??? Academy of Nutrition and Dietetics: www.eatright.org ??? National [place] of Diabetes and Digestive and Kidney Diseases: [...] provider. Document Revised: 09/11/2020 Document Reviewed: 09/11/2020 [employer] Patient Education ? 2020 [employer]. Nephrology Acute Kidney Injury, Adult Acute kidney [...] these instructions at home: Medicines ??? Take nzyd-dqb-bxxplgg and prescription medicines only as told by [...] important. Where to find more information ??? [place] Association of Kidney Patients: www.aakp.org ??? National Kidney Foundation: www.kidney.org ??? [place] Kidney Fund: www.akfinc.org ??? [employer] Rehabilitation [...] provider. Document Revised: 08/14/2020 Document Reviewed: 08/14/2020 [employer] Patient Education ? 2020 [employer]. Pulmonary Medicine Chronic Obstructive Pulmonary Disease Exacerbation [...] these instructions at home: Medicines ??? Take mohk-kkg-mtcvimc and prescription medicines only as told by [...] cannot use soap and water, use hand border machine operator. ??? During flu season, avoid [...] provider. Document Revised: 09/17/2018 Document Reviewed: 11/09/2017 [employer] Patient Education ? 2020 [employer]. documented in this encounter Plan of Treatment Not on file documented as of this encounter Visit Diagnoses Not on filedocumented in this encounter
--- OUTSIDE RECORDS SUMMARY | 2025-06-12 11:58 | XMS_ITS | CCD ---
Author Organization Unknown Care Team Providers Care Sales Office Administrator Name Role Phone Unavailable Primary Care Provider Unavailabl e Unavailable Chronic Care Management Unavaila ble Summary Purpose DataExchange Insurance Providers Payer name Policy type / Coverage type Covered libertarian ID Effective Begin Date Effective End Date [facility] [id number] Unknown Unknown Family History Family History data not found Medication Administered No Medication Administered data Reason For Visit No Reason For Visit data Medical Equipment No Medical Equipment data Advance Directives No Advance Directive data
--- OUTSIDE RECORDS SUMMARY | 2025-06-12 11:59 | XMS_ITS | CCD ---
Author Organization Unknown Care Team Providers Care Medicare Specialist Name Role Phone Unavailable Primary Care Provider Unavailabl e Unavailable Chronic Care Management Unavaila ble Summary Purpose [employer] Insurance Providers Payer name Policy type / Coverage type Covered alliance party ID Effective Begin Date Effective End Date [facility] [id number] Unknown Unknown Family History Family History data not found Medication Administered No Medication Administered data Reason For Visit No Reason For Visit data Medical Equipment No Medical Equipment data Advance Directives No Advance Directive data
== END 2025-06-08 23:59 | disposition home or self-care (01) ==
LOC: LAB.DROPOF 06-12 10:23
PROVIDERS: PCP Family Medicine; Visit Provider Family Medicine
DX: J44.1 Chronic obstructive pulmonary disease with (acute) exacerbation (principal); E11.69 Type 2 diabetes mellitus with other specified complication
CPT/HCPCS: 80053; 80061; 83036; 85025

== ENCOUNTER 2025-07-11 13:27 | Outpatient (CLI) | payer MEDICARE, SELFPAY ==
--- OUTSIDE RECORDS SUMMARY | 2025-05-12 10:40 | XMS_ITS | Encounter Summary ---
Author Organization [facility] Address [address] [place] [address] Care Team Providers Care Grants Manager Name Role Phone Kaveh Ryan MD Primary Care Provider + [phone] Kalli Shipley MD Unavailable + [phone] Reason for Visit * Reason Comments Consult [...] Description 05/12/2025 10:40 AM EDT Office Visit [facility] [address] [place] [address] uJliann Adrian, [place] [address] [address] Stage 3a chronic kidney disease (CMS/HCC) (Primary Dx); Chronic kidney disease-mineral and bone disorder; Essential hypertension; Diabetes mellitus due to underlying condition with diabetic chronic kidney disease, unspecified CKD stage, unspecified whether watcher automat long goods insulin use (CMS/HCC); Coronary artery disease involving [place] coronary artery of [place] heart without angina pectoris Social History Tobacco [...] furosemide (LASIX) 20 mg, As needed HYDROcodone-acetaminophen ([place]) 5-325 MG tablet No dose, route, or frequency recorded. HYDROcodone-acetaminophen ([place]) 7.5-325 MG tablet 7.5 tablets, As needed [...] Labs scanned in to media tab of [employer] from an outside facility. Labs completed on [...] Diagnosis Date Arthritis CHF (congestive heart failure) ([facility]/HCC) COPD (chronic obstructive pulmonary disease) ([facility]/HCC) Coronary artery disease Diabetes mellitus (CMS/HCC) Hypertension Major depressive disorder Personal history of other diseases of the circulatory system History of hypertension Pure hypercholesterolemia, unspecified High cholesterol Vitamin D deficiency documented in this encounter Plan of Treatment Upcoming Encounters Date Type Department Care Team (Late st Contact Info) Description 01/12/2026 11:20 AM EDT Office Visit [facility] [address] [place] [address] Juliann Adrian APRN [address] [address] Scheduled Orders Name Type Priority Associated Diagnoses Orde r Schedule Renal Function Panel, Plasma Lab Routine Stage 3a chronic kidney disease ([facility]/HCC) Expected: 05/12/2025 (Approximate), Expires: 11/12/2026 CBC W/O Differential Lab Routine Stage 3a chronic kidney disease ([facility]/HCC) Expected: 05/12/2025 (Approximate), Expires: 11/12/2026 Urinalysis with reflex microscopic (Culture NOT Included) Lab Routine Stage 3a chronic kidney disease ([facility]/HCC) Expected: 05/12/2025 (Approximate), Expires: 11/12/2026 Creatinine, Random, Urine Lab Routine Stage 3a chronic kidney disease ([facility]/HCC) Expected: 05/12/2025 (Approximate), Expires: 11/12/2026 Albumin-creatinine ratio, urine, random Lab Routine Stage 3a chronic kidney disease ([facility]/HCC) Expected: 05/12/2025 (Approximate), Expires: 11/12/2026 Protein, Random, Urine with Creatinine Lab Routine Stage 3a chronic kidney disease ([facility]/HCC) Expected: 05/12/2025 (Approximate), Expires: 11/12/2026 documented as of this encounter Visit Diagnoses Diagnosis Stage 3a chronic kidney disease ([facility]/HCC)- Primary Chronic kidney disease-mineral and bone disorder Essential hypertension Unspecified essential hypertension Diabetes mellitus due to underlying condition with diabetic chronic kidney disease, unspecified CKD stage, unspecified whether senior living insulin use Coronary artery disease involving [place] coronary artery of [place] heart without angina pectoris documented in this encounter Additional Health Concerns Assessment Noted Time A fall risk assessment has been complete d for the patient 08/05/2023 11:12 AM EDT A Body Mass Index follow-up plan has been documented for the patient 05/12/2025 10:43 AM EDT documented as of this encounter Care Teams Grants Manager Relationship Specialty Start Date End Date Kaveh Ryan MD [address] [place] [address] PCP - General 05/28/22 Kalli Shipley MD [address] [facility] [address] [place] [address] Service Attending Neurology 05/28/22 documented as of this encounter
--- NOTE | 2025-07-11 13:31 | XR_ITS ---
FINAL REPORT CLINICAL HISTORY: back pain FINDINGS: AP, oblique, and lateral views of the lumbosacral spine were obtained with flexion and extension views. There is mild dextroscoliosis. Multilevel degenerative disc disease is most pronounced at L2-3 and L3-4. There is no change in alignment on flexion or extension. IMPRESSION: Degenerative disease with no change in alignment on flexion or extension. Reviewed, Interpreted and Dictated by Gwendolyn Bryant MD Transcribed by Neha Arreola Authenticated and [facility]
--- NOTE | 2025-07-11 13:31 | XR_ITS ---
FINAL REPORT CLINICAL HISTORY: hip pain/back pain FINDINGS: AP of the pelvis and frog leg views of the right hip were obtained. There is no prior exam for comparison. There is no acute fracture or dislocation. There is mild degenerative joint disease. Soft tissues are unremarkable. IMPRESSION: Mild degenerative change without acute osseous abnormality of the right hip. Reviewed, Interpreted and Dictated by Gwendolyn Bryant MD Transcribed by Neha Arreola Authenticated and [facility]
--- OUTSIDE RECORDS SUMMARY | 2025-07-11 13:31 | XMS_ITS | Clinical Summary ---
Author Organization [facility] ([place], [place], [place], [place]) Address [address] [place] [address] Care Team Providers Care Hand Inserter Operator Name Role Phone Unavailable Primary Care [...]
--- OUTSIDE RECORDS SUMMARY | 2025-07-11 13:31 | XMS_ITS | Encounter Summary ---
Author Organization [facility] Address [address] [place] [address] Care Team Providers Care All Around Gear Machine Operator Name Role Phone Kaveh Ryan MD Primary Care Provider + [phone] Kalli Shipley MD Unavailable + [phone] Encounter Details Date Type Department Care Team [...] Description 01/12/2026 11:20 AM EDT Office Visit [facility] [address] [place] [address] Juliann Adrian, STEWARD/STEWARDESS DECK [address] [facility] [address] [place] [address] documented as of this encounter Visit Diagnoses Not on filedocumented in this encounter Additional Health Concerns Assessment Noted Time A fall risk assessment has been complete d for the patient 08/05/2023 11:12 AM EDT A Body Mass Index follow-up plan has been documented for the patient 05/12/2025 10:43 AM EDT documented as of this encounter Care Teams All Around Gear Machine Operator Relationship Specialty Start Date End Date Kaveh Ryan MD [address] [place] [address] PCP - General 05/28/22 Kalli Shipley MD [address] [id number] Service Attending Neurology 05/28/22 documented as of this encounter
--- OUTSIDE RECORDS SUMMARY | 2025-07-11 13:31 | XMS_ITS | Referral Summary ---
Author Organization [employer] ([place], [place], [place], [place]) Address [address] [place] [address] Care Team Providers Care Lease Purchase Truck Driver Name Role Phone Unavailable Primary Care [...]
--- OUTSIDE RECORDS SUMMARY | 2025-07-11 13:31 | XMS_ITS | Clinical Summary ---
Author Organization [facility] Address [address] [place] [address] Care Team Providers Care Civil Preparedness Coordinator Name Role Phone Kaveh Ryan MD Primary Care Provider [phone] Allergies No known active allergies Medications levETIRAcetam [...] 1999 ZOSTER VACCINE (1 of 2) 2004 INFLUENZA VACCINE 05/19/2025 09/06/2021, 10/24/2020 COVID-19 Vaccine (2 - 2024-2 6 season) 2025 07/21/2022 Pneumococcal Vaccine 50+ Completed 01/23/2021, 11/19 AAA [...] - 5.60 % 08/28/2022 9:18 AM EST [facility] Blood Venipuncture / Unknown 08/28/2022 8:27 AM EST 08/28/2022 8:56 AM EST Narrative [facility] - 08/28/2022 9:18 AM EST Hemoglobin A1C Ranges: Increased Risk for Diabetes 5.7% to 6.4% Diabetes >= 6.5% Diabetic Goal < 7.0% Christine Vilchis INDUSTRIAL TECH INSTRUCTOR LAB BLOOD ORDERABLES Final Resu lt [facility]
[address] [place] [address], from Last 3 Months or Most Recently [...] Release to patient: Routine Release Care Teams Civil Preparedness Coordinator Relationship Specialty Start Date End Date Kaveh Ryan MD [address] ATTN: [place] [address] PCP - General Emergency Medicine 08/27/22
--- OUTSIDE RECORDS SUMMARY | 2025-07-11 13:32 | XMS_ITS | Clinical Summary ---
Author Organization [facility] Address [address] [place] [address] Care Team Providers Care Supervisor Slitting And Shipping Name Role Phone Kaveh Ryan MD Primary Care Provider + [phone] Kalli Shipley MD Unavailable + [phone] Medications atorvastatin (Lipitor) 80 MG tablet Take [...] the morning. 05/16/20 22 Active HYDROcodone-acetam inophen ([place]) 5-325 MG tablet 01/27/20 23 Active nitroglycerin [...] needed for erectile dysfunction. Active HYDROcodone-acetam inophen ([place]) 7.5-325 MG tablet Take 7.5 tablets (56.25 [...] (02/25/2022): Added automatically from request for surgery [id number] Thrombocytopenia Resolved Problems Problem Noted Date Diagnosed [...] Description 05/12/2025 10:40 AM EDT Office Visit [facility] [address] [place] [address] Juliann Adrian APRN Stage 3a chronic kidney disease ([facility]) (Primary Dx); Chronic kidney disease-mineral and bone disorder; Essential hypertension; Diabetes mellitus due to underlying condition with diabetic chronic kidney disease, unspecified CKD stage, unspecified whether terminal press operator insulin use ([facility]); Coronary artery disease involving [place] coronary artery of [place] heart without angina pectoris 05/12/2025 Travel from [...] Description 01/12/2026 11:20 AM EDT Office Visit [facility] [address] [place] [address] Juliann Adrian, COPY MANAGER [address] [address] Health Maintenance Due Date Last [...] 2019 [facility]-Diabetes: Hemoglobin A1C 02/25/202307/2022, 01/30/2022, 10/15/2015 [id number] Vaccine ( - season) 2025 07/21/2022, 09/09/2021, 01/16/2021, Additional history exists [facility]-Influenza [...] this topic Medical Devices Implanted Type Area Licensed Nuclear Operator Device Identifier Shelf Expiration Date Model / Serial / Lot Graft Collagen 5x5cm Durepair Mater - [id number] Implanted:Qty: 1 on 02/26/2022 by Martin Banegas MD at [facility] [employer] (Tissue [id number] 07/18/2023 [id number] / / [id number] Cement Bone Pneum Mix 5cc Strl - [id number] Implanted:Qty: 1 on 02/26/2022 by Martin Banegas MD at [facility] [employer] [facility]-[id number] 12/16/2022 [id number] .[id number] / / [id number] Procedures Procedure Name Priority Date/Time Associated Diagnosis Comments HEPATITIS C ANTIBODY - ED W/REFLEX TO HCV QUANT PCR STAT 03/19/2022 10:48 AM EDT HEMOGLOBIN A1C Add-On 01/30/2022 8:46 PM EDT from Last 3 Months or Most Recently Relevant to Health Maintenance Results * [place] Hepatitis C Antibody (03/19/2022 10:48 AM EDT) Hepatitis C Antibody Negative Negative 03/19/2022 12:52 PM EDT [facility] Blood Venous blood specimen / Unknown Venipuncture / Unknown 03/19/2022 10:48 AM EDT 03/19/2022 11:14 AM EDT us Giles Gonzales MD LAB BLOOD ORDERABLES Radha l Result Performing Organization Address City[facility] Co de Phone Number [facility] [address] [place] [address] * (ABNORMAL) Hemoglobin A1c (01/30/2022 8:46 PM [...] Adults <6.0% Children and Adolescents <7.5% Source: [place] [employer]. Standards of medical care in diabetes,2017. Diabetes Care.2017:40 (suppl 1):S1-S135. HbA1c assay performed by an ion-exchange chromatography method that is certified traceable to the DCCT. us Omid Steven MD LAB BLOOD ORDERABLES Final Result Performing Organization Address City/[facility] de Phone Number HEALTHCARE [facility] [address] [place] [address] from Last 3 Months or Most Recently Relevant to Health Maintenance Insurance [facility] MEDICARE Advance Directives * DNR/DNI (Latest [...] would not be sustained on a ventilator fci. Question Answer Comments DNR determined on/before admission [...] of Healthcare Surrogate: Elias Maldonado Care Teams Supervisor Slitting And Shipping Relationship Specialty Start Date End Date Kaveh Ryan MD [address] [place] [address] PCP - General 05/28/22 Kalli Shipley MD [address] [address] Service Attending Neurology 05/28/22
--- OUTSIDE RECORDS SUMMARY | 2025-07-11 13:32 | XMS_ITS | Encounter Summary ---
Author Organization [facility] Address [address] [place] [address] Care Team Providers Care Automobile Dealer Name Role Phone Kaveh Ryan MD Primary Care Provider + [phone] Kalli Shipley MD Unavailable + [phone] Reason for Visit * Reason Comments Med Refill Encounter Details Date Type Department Care Team (Late st Contact Info) Description 05/07/2023 [facility]ill [place] [facility] [address] [place] [address] Kalli Shipley MD [address] [place] [address] Social History Tobacco Use Types [...] Description 01/12/2026 11:20 AM EDT Office Visit [facility] [address] [place] [address] Juliann Adrian, CHEMICALS DISTILLER [address] [facility] [address] [place] [address] documented as of this encounter Visit Diagnoses Not on filedocumented in this encounter Additional Health Concerns Assessment Noted Time A fall risk assessment has been complete d for the patient 02/26/2023 9:15 AM EDT A Body Mass Index follow-up plan has been documented for the patient 02/26/2023 12:36 PM EDT documented as of this encounter Care Teams Automobile Dealer Relationship Specialty Start Date End Date Kaveh Ryan MD [address] [facility] [place] [address] PCP - General 05/28/22 Kalli Shipley MD [address] [facility] [address] [place] [address] Service Attending Neurology 05/28/22 documented as of this encounter
--- OUTSIDE RECORDS SUMMARY | 2025-07-11 14:31 | XMS_ITS | CCD ---
Author Organization Unknown Care Team Providers Care Scientific Advisor Name Role Phone Unavailable Primary Care Provider Unavailabl e Unavailable Chronic Care Management Unavaila ble Summary Purpose DataExchange Insurance Providers Payer name Policy type / Coverage type Covered green party ID Effective Begin Date Effective End Date [facility] [id number] Unknown Unknown Family History Family History data not found Medication Administered No Medication Administered data Reason For Visit No Reason For Visit data Medical Equipment No Medical Equipment data Advance Directives No Advance Directive data
--- OUTSIDE RECORDS SUMMARY | 2025-07-11 14:31 | XMS_ITS | CCD ---
Author Organization Unknown Care Team Providers Care Undertaker Assistant Name Role Phone Unavailable Primary Care Provider Unavailabl e Unavailable Chronic Care Management Unavaila ble Summary Purpose DataExchange Insurance Providers Payer name Policy type / Coverage type Covered republican ID Effective Begin Date Effective End Date [facility] [id number] Unknown Unknown Family History Family History data not found Medication Administered No Medication Administered data Reason For Visit No Reason For Visit data Medical Equipment No Medical Equipment data Advance Directives No Advance Directive data
== END 2025-07-11 23:59 | disposition home or self-care (01) ==
LOC: RAD 13:28
PROVIDERS: PCP Family Medicine; Visit Provider Specialist
DX: M51.17 Intervertebral disc disorders with radiculopathy, lumbosacral region (principal); M16.11 Unilateral primary osteoarthritis, right hip
CPT/HCPCS: 72114; 73502

== ENCOUNTER 2025-07-20 15:00 | Outpatient (CLI) | payer MEDICARE, SELFPAY ==
--- OUTSIDE RECORDS SUMMARY | 2025-06-12 20:00 | XMS_ITS | Clinical Summary ---
Author Organization Unknown Care Team Providers Care Linderman Machine Operator Name Role Phone OBINNA GAGE, MUSA Unavailable Unavailable KARI PT, WILFREDO Unavailable Unavailable SAPPHIRE OT, MICA Unavailable Unavailable BILLIE WEATHERIZATION COORDINATOR, JESSICA Unavailable Unavailable RONNIE PT, RANDOLPH Unavailable Unavailable Payers Payer Name Policy Type Policy Number Effective Date Expira tion Date HOPEAUTH [id number] Problems Condition Name Condition Details Condition Category Status Onset Date Resolution Date Last Treatment Date Treating Clinician Comments ALZHEIMER'S DISEASE WITH LATE ONSET Active 10-19 00:00: 00 DEM IN OTH DIS CLASSD ELSWHR, UNSP SEV, WITH OTH BEH DISTRB Active 10-19 00:00: 00 OTHER CHRONIC PAIN Active 10-19 00:00: 00 LUMBAGO WITH SCIATICA, UNSPECIFIED SIDE Active 10-19 00:00: 00 TYPE 2 DIABETES MELLITUS WITHOUT COMPLICATION S Active 10-19 00:00: 00 CHRONIC OBSTRUCTIVE PULMONARY DISEASE, UNSPECIFIED Active 10-19 00:00: 00 ESSENTIAL (PRIMARY) HYPERTENSION Active 10-19 00:00: 00 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 Active 10-19 00:00: 00 HEADACHE, UNSPECIFIED Active 10-19 00:00: 00 DEPRESSION, UNSPECIFIED Active 10-19 00:00: 00 UNSPECIFIED SENSORINEURA L HEARING LOSS Active 10-19 00:00: 00 DIZZINESS AND GIDDINESS Active 10-19 00:00: 00 HYPO-OSMOLAL ITY AND HYPONATREMIA Active 03-19 00:00: 00 HYPERLIPIDEM IA, UNSPECIFIED Active 10-19 00:00: 00 PRECORDIAL PAIN Active 03-19 00:00: 00 DISORDER OF BRAIN, UNSPECIFIED Active [...] tablet,yadira yed release 03-28 00:00: 00 Yes [id number] HEART 1 tablet DAILY 1 tablet DAILY (route: oral) Med Classific ation: Hematolog ical Agents atorvastati n 80 mg tablet 03-28 00:00: 00 Yes [id number] CHOLESTEROL 1 tablet DAILY 1 tablet DAILY (route: oral) Med Classific ation: Cardiovas cular Therapy Agents clopidogrel 75 mg tablet 03-28 00:00: 00 Yes [id number] BLOOD THINNER 1 tablet DAILY 1 tablet DAILY (route: oral) Med Classific ation: Hematolog ical Agents divalproex 125 mg tablet,yadira yed release 03-28 00:00: 00 Yes [id number] SEIZURE 4 tablet DAILY 4 tablet DAILY (route: oral) Med Classific ation: Central Nervous System Agents fluticasone propionate 50 mcg/actuati on nasal spray,suspe nsion 03-28 00:00: 00 Yes [id number] ALLERGIES 1 spray 2 TIMES DAILY 1 spray 2 TIMES DAILY (route: nasal) Med Classific ation: Respirato ry Therapy Agents hydrocodone 7.5 mg-acetamin ophen 325 mg tablet 03-28 00:00: 00 Yes [id number] PAIN 1 tablet 4 TIMES DAILY 1 tablet 4 TIMES DAILY (route: oral) Med Classific ation: Analgesic , Anti-infl ammatory or Antipyret ic isosorbide mononitrate ER 30 mg tablet,exte nded release 24 hr 03-28 00:00: 00 04-24 00:00 :00 No [id number] HEART 1 tablet DAILY 1 tablet DAILY (route: oral) Med Classific ation: Cardiovas cular Therapy Agents lacosamide 150 mg tablet 03-28 00:00: 00 Yes [id number] SEIZURES 1 tablet 2 TIMES DAILY 1 tablet 2 TIMES DAILY (route: oral) Med Classific ation: Central Nervous System Agents levocetiriz ine 5 mg tablet 03-28 00:00: 00 04-24 00:00 :00 No [id number] ALLERGIES 1 tablet DAILY 1 tablet DAILY (route: oral) Med Classific ation: Respirato ry Therapy Agents meclizine 25 mg chewable tablet 03-28 00:00: 00 Yes [id number] DIZZINESS 2 tablet 2 TIMES DAILY 2 tablet 2 TIMES DAILY (route: oral) Med Classific ation: Gastroint estinal Therapy Agents metformin 500 mg tablet 03-28 00:00: 00 Yes [id number] DIABETES 1 tablet 2 TIMES DAILY 1 tablet 2 TIMES DAILY (route: oral) Med Classific ation: Endocrine metoprolol succinate ER 50 mg tablet,exte nded release 24 hr 03-28 00:00: 00 Yes [id number] BLOOD PRESSURE, HR 1 tablet DAILY 1 tablet DAILY (route: oral) Med Classific ation: Cardiovas cular Therapy Agents nitroglycer in 0.4 mg sublingual tablet 03-28 00:00: 00 Yes [id number] CHEST PAIN 1 tablet NEEDED 1 tablet NEEDED (route: sublingual ) Med Classific ation: Cardiovas cular Therapy Agents potassium chloride ER 10 mEq tablet,exte nded release 03-28 00:00: 00 04-24 00:00 :00 No [id number] SUPPLEMENT 1 tablet DAILY 1 tablet DAILY (route: oral) Med Classific ation: Electroly te Balance-N utritiona l Products quetiapine 50 mg tablet 03-28 00:00: 00 Yes [id number] SLEEP 1 tablet BEDTIME 1 tablet BEDTIME (route: oral) Med Classific ation: Central Nervous System Agents ranolazine ER 1,000 mg tablet,exte nded release,12 hr 03-28 00:00: 00 Yes [id number] CHEST PAIN 1 tablet 2 TIMES DAILY 1 tablet 2 TIMES DAILY (route: oral) Med Classific ation: Cardiovas cular Therapy Agents Vitamin D3 25 mcg (1,000 unit) capsule 03-28 00:00: 00 Yes [id number] SUPPLEMENT 1 capsule DAILY 1 capsule DAILY (route: oral) Med Classific ation: Electroly te Balance-N utritiona l Products sulfamethox azole 800 mg-trimetho prim 160 mg tablet 04-14 00:00: 00 04-24 23:59 :00 No [id number] FOR SINUS INFECTION 1 tablet 2 TIMES DAILY 1 tablet 2 TIMES DAILY (route: oral) Med Classific ation: Anti-Infe ctive Agents Vital Signs Vital Name Observation Time Observation Value Commen ts Temperature 2025-06-13 14:49:00.000 97.1 [degF] Pulse 2025-06-13 14:49:00.000 78 /min Respirations 2025-06-13 14:49:00.000 16 /min Systolic Blood Pressure 2025-06-13 14:49:00.000 136 mm [Hg] Diastolic Blood Pressure 2025-06-13 14:49:00.000 86 mm [Hg] Plan of Treatment Planned Activity Planned Date Details Comments Future Scheduled Test AGENCY MAY PERFORM A RESUMPTION OF CARE VISIT FOLLOWING ANY HOSPITAL ADMISSION. PT TO EVALUATE, OBSERVE / ASSESS, AND MONITOR, WEATHERIZATION COORDINATOR TO OBSERVE AND MONITOR, PROVIDE SKILLED THERAPEUTIC INTERVENTION, ACTIVITY, EDUCATION, AND TRAINING TO ADDRESS; [code = AGENCY MAY PERFORM A RESUMPTION OF CARE VISIT FOLLOWING ANY HOSPITAL ADMISSION. PT TO EVALUATE, OBSERVE / ASSESS, AND MONITOR, WEATHERIZATION COORDINATOR TO OBSERVE AND MONITOR, PROVIDE SKILLED THERAPEUTIC INTERVENTION, ACTIVITY, EDUCATION, AND TRAINING TO ADDRESS;] Future Scheduled Test SIT TO/FRO M STAND TRANSFERS (PT/WEATHERIZATION COORDINATOR) [code = SIT TO/FROM STAND TRANSFERS (PT/WEATHERIZATION COORDINATOR)] Future Scheduled Test PT/WEATHERIZATION COORDINATOR TO PROVIDE GAIT TRAINING FOR IMPROVED MOBILITY AND /OR TO NORMALIZE GAIT PATTERN [code = PT/WEATHERIZATION COORDINATOR TO PROVIDE GAIT TRAINING FOR IMPROVED MOBILITY AND /OR TO NORMALIZE GAIT PATTERN] Future Scheduled Test NEUROMUSCU LAR RE-EDUCATION / BALANCE / POSTURAL CONTROL (PT) [code = NEUROMUSCULAR RE-EDUCATION / BALANCE / POSTURAL CONTROL (PT)] Future Scheduled Test THERAPEUTI C EXERCISES AND ESTABLISHING A HOME EXERCISE PROGRAM (PT/WEATHERIZATION COORDINATOR) [code = THERAPEUTIC EXERCISES AND ESTABLISHING A HOME EXERCISE PROGRAM (PT/WEATHERIZATION COORDINATOR)] Goal 2025-05-24 Patient Goal - GET STRONGER Goal 2025-06-13 Patient Goal - GET STRONGER Goal Provider Goal - Goal Provider Goal - PT STG: PATIENT WILL DEMONSTRATE IMPROVED ABILITY TO PERFORM SIT TO/FROM STAND TRANSFERS TO REDUCE THE RISK OF SKIN BREAKDOWN AND REDUCE FALL RISK FROM SBA TO IND WITHIN 4 WEEKS Goal Provider Goal - PT LTG: PATIENT WILL DEMONSTRATE IMPROVED 6 MINUTE WALK TEST AMBULATION FROM 250 FT SBA TO 400 FT IND WITH APPROPRIATE AD WITHIN 8 WEEKS. Goal Provider Goal - PT STG: PATIENT WILL DEMONSTRATE REDUCED FALL RISK EVIDENCED BY TUG TEST (CUT SCORE >11 SECONDS INDICATES INCREASED FALL RISK) IMPROVING FROM 18 SECONDS TO LESS THAN OR EQUAL TO 15 SECONDS WITHIN 4 WEEKS PT LTG: PATIENT WILL DEMONSTRATE REDUCED FALL RISK EVIDENCED BY TUG TEST (CUT SCORE >11 SECONDS INDICATES INCREASED FALL RISK) IMPROVING FROM 18 SECONDS TO LESS THAN OR EQUAL TO 11 SECONDS WITHIN 8 WEEKS Goal Provider Goal - PT STG: PATIENT WILL DEMONSTRATE IMPROVED FUNCTIONAL STRENGTH EVIDENCED BY FIVE TIMES SIT TO STAND TEST (CUT SCORE >12 SECONDS INDICATES AN INCREASED FALL RISK) IMPROVING FROM 18 SECONDS TO LESS THAN OR EQUAL TO 16 SECONDS WITHIN 4 WEEKS IN ORDER TO DECREASE FALL RISK PT LTG: PATIENT WILL DEMONSTRATE IMPROVED FUNCTIONAL STRENGTH EVIDENCED BY FIVE TIMES SIT TO STAND TEST (CUT SCORE >12 SECONDS INDICATES AN INCREASED FALL RISK) IMPROVING FROM 18 SECONDS TO LESS THAN OR EQUAL TO 12 SECONDS WITHIN 8 WEEKS IN ORDER TO DECREASE FALL RISK PT LTG: PATIENT WILL DEMONSTRATE INDEPENDENCE AND COMPLIANCE WITH HEP WITHIN 4 WEEKS Reason for Visit INDEPENDENT IN THE HOME Encounters Start Date/Time End Date/Time Encounter Type Admission Type Attending [facility] Care Department Encounter ID Discharge Date Discharge Status Discharge Condition Discharge Reason Percent Goals Met 2025-05-27 00:00:00 2025-06-13 00:00:00 Outpatient RECERTIFIC ATION WILFREDO PIERCE [facility] [id number] 2025-06-13 00:00:00 DISCHARGE TO HOME OR SELF CARE INDEPENDEN T IN THE HOME HH - OTHER (PROVIDE DETAILS IN COORD NOTE) 100.00
--- OUTSIDE RECORDS SUMMARY | 2025-07-20 15:02 | XMS_ITS | Patient Health Record ---
Author Organization [facility], [facility] . Address [address] [place] [address] Care Team Providers Care Supervisor Blast Furnace Auxiliaries Name Role Phone HALLIE RUTH Unavailable [phone] Allergies Allergen (clinical drug ingredient) Drug/Non Drug Allergy documented on EMR Reaction Allergy Type Onset Date Status Isosorbide Nitrate Headaches Drug Allergy Active Reason For Referral No Information Medications Medication SIG (Take, Route, Frequency, Duration) Notes Start Date End Date Status Vitamin D3 1.25 MG (73079 UT) 1 capsule Orally weekly Acti ve Aspirin 81 81 MG 1 tablet Orally Once a day; Duration: 30 day(s) Active oxyCODONE-Acetaminophen 5-325 MG 1 tablet as needed Orally every 6 hrs Active hydrALAZINE HCl 25 MG 1 tablet with food Orally Twice a day Active glipiZIDE 10 MG 1 tablet 30 minutes before breakfast Orally Once a day; Duration: 30 day(s) Active Vitamin D3 25 MCG (1000 UT) 1 capsule Or ally Once a day; Duration: 30 day(s) Active Metoprolol Succinate 50 MG 1 capsule Ora lly Once a day; Duration: 30 day(s) Active Breo Ellipta 100-25 MCG/INH 1 puff Inhal ation Once a day Active Atorvastatin Calcium 80 MG 1 tablet Oral ly Once a day; Duration: 30 day(s) Active Gabapentin 100 MG 2 capsules Orally Twice Active Clopidogrel Bisulfate 75 MG 1 tablet Ora lly Once a day; Duration: 30 day(s) Active Social History Tobacco Use: Social History Observation Description Date Details (start date - stop date) Never Smoker NA - NA Tobacco Use/Smoking Question Answer Notes Status: nonsmoker Alcohol Screen (Audit-C) Question Answer Notes Did you have a drink containing alcohol in the p ast year? No Points 0 Interpretation Negative Problems Problem Type SNOMED Code ICD Code Onset Dates Problem Status W/U Status Risk Notes Problem Type 2 diabetes mellitus (28810413) DM type 2 (diabetes mellitus, type 2) (E11.9) Active confirmed Problem Encephalopathy (08965547) Encephalopathy (G93.40) Active confirmed Problem Renal failure syndrome (03859440) Uremic syndrome (N19) Active confirmed Plan Of Treatment Pending Test Test Name Order Date PHOSPHATE ( PHOSPHORUS) 01/22/2022 URIC ACID 01/22/2022 PROTEIN, TOTAL W/CREAT, RANDOM URINE 03/2022 URINALYSIS, COMPLETE W/REFLEX TO CULTURE 01/22/2022 PTH, INTACT 01/22/2022 [id number] 01/22/2022 Insurance Providers Payer Name Payer Address Payer Phone Subscriber Number Group Number Insured Name Patient Relationship to Insured Coverage Start Date Coverage End Date Lynda [place] ([place]ic[place] d[place] [address] [address] [place] [phone] [id number] Efrain Maldonado Self - patient is the insured Medical (General) History Medical History History ICD Code ZAHRA Uremic encephalopathy COPD w/ acute exacerbation from rhinovir us INOCENTE HTN CHF DM 2 SSI Surgical History Surgery Date(Month/Year) Cardiac Stents x3 Hospitalization History Reason Date(Month/Year) ZAHRA 12/2021
--- NOTE | 2025-07-20 15:30 | MR_ITS ---
FINAL REPORT CLINICAL HISTORY: back pain that radiates down both legs chronic COMPARISON: Report dated 07/22/2023, 08/11/2020 FINDINGS: Multiplanar MR imaging of the lumbar spine was performed without contrast. On the sagittal T2-weighted images, there is abnormal decreased signal throughout the lumbar discs, particularly the L5-S1 disc. Note is made of a prominent S1-S2 disc. The vertebrae are of normal height. There is minimal spondylolisthesis of L3 on L4. L1-2: There is no significant canal stenosis or neural foraminal narrowing. L2-3: There is mild endplate hypertrophy and mild bilateral neural foraminal narrowing. L3-4: There is a left posterolateral disc protrusion with endplate hypertrophy eccentric to the left. There is moderate to severe left neural foraminal narrowing. L4-5: A moderate annular bulge is present with endplate hypertrophy and moderate bilateral neural foraminal narrowing. L5-S1: A mild annular bulge is present with endplate hypertrophy and mild to moderate bilateral neural foraminal narrowing. IMPRESSION: There is a prominent S1/S2 disc present and used for determining disc space levels. Multilevel degenerative change is again noted, with neuroforaminal narrowing most pronounced at the L3-4 and L4-5 levels, not significantly changed since the prior exam of 08/11/2020. Reviewed, Interpreted and Dictated by Nic Mancera MD Transcribed by Elsy Dominique Authenticated and [facility]
--- OUTSIDE RECORDS SUMMARY | 2025-07-20 16:02 | XMS_ITS | CCD ---
Author Organization Unknown Care Team Providers Care Wheel Setter Name Role Phone Unavailable Primary Care Provider Unavailabl e Unavailable Chronic Care Management Unavaila ble Summary Purpose DataExchange Insurance Providers Payer name Policy type / Coverage type Covered democrat ID Effective Begin Date Effective End Date [facility] [id number] Unknown Unknown Family History Family History data not found Medication Administered No Medication Administered data Reason For Visit No Reason For Visit data Medical Equipment No Medical Equipment data Advance Directives No Advance Directive data
== END 2025-07-20 23:59 | disposition home or self-care (01) ==
PROVIDERS: PCP Family Medicine; Visit Provider Specialist
DX: M47.26 Other spondylosis with radiculopathy, lumbar region (principal); M99.73 Connective tissue and disc stenosis of intervertebral foramina of lumbar region; M51.17 Intervertebral disc disorders with radiculopathy, lumbosacral region
CPT/HCPCS: 72148

== ENCOUNTER 2025-08-07 12:40 | Outpatient (CLI) | payer MEDICARE, SELFPAY ==
[2025-08-07 21:25] LABS: Anion Gap 14.9 mEq/L (5-15); Blood Urea Nitrogen 26 mg/dl (9-20); Calcium 9.2 mg/dl (8.4-10.2); Carbon Dioxide 22 mmol/L (22.0-30.0); Chloride 102 mmol/L (98-107); Creatinine,Serum 1.40 mg/dl (0.66-1.25); Estimated Glomerular Filt Rate 50 ml/min (>60); GFR (African American) 61 ML/MIN (>60); Glucose 111 mg/dl (74-100); Potassium 4.9 mmoL/L (3.5-5.1); Sodium 134 mmol/L (136-145)
--- OUTSIDE RECORDS SUMMARY | 2025-08-09 12:49 | XMS_ITS | Clinical Summary ---
Author Organization [facility] Address [address] [place] [address] Care Team Providers Care Pigment And Lacquer Mixer Name Role Phone Kaveh Ryan MD Primary Care Provider + [phone] Kalli Shipley MD Unavailable + [phone] Medications atorvastatin (Lipitor) 80 MG tablet Take [...] the morning. 05/16/20 22 Active HYDROcodone-acetam inophen ([place]) 5-325 MG tablet 01/27/20 23 Active nitroglycerin [...] needed for erectile dysfunction. Active HYDROcodone-acetam inophen ([place]) 7.5-325 MG tablet Take 7.5 tablets (56.25 [...] (02/25/2022): Added automatically from request for surgery [id number] Thrombocytopenia Resolved Problems Problem Noted Date Diagnosed [...] Description 05/12/2025 10:40 AM EDT Office Visit [facility] [address] [place] [address] Juliann Adrian APRN Stage 3a chronic kidney disease ([facility]) (Primary Dx); Chronic kidney disease-mineral and bone disorder; Essential hypertension; Diabetes mellitus due to underlying condition with diabetic chronic kidney disease, unspecified CKD stage, unspecified whether rn long term care insulin use ([facility]); Coronary artery disease involving stillaguamish coronary artery of stillaguamish heart without angina pectoris 05/12/2025 Travel from [...] Description 01/12/2026 11:20 AM EDT Office Visit [facility] [address] [place] [address] Juliann Adrian, LOGISTICS TECH [address] [address] Health Maintenance Due Date Last [...] 2019 UKY-Diabetes: Hemoglobin A1C 02/25/202307/2022, 01/30/2022, 10/15/2015 [id number] Vaccine ( - season) 2025 07/21/2022, 09/09/2021, [...] this topic Medical Devices Implanted Type Area Bee Robber Device Identifier Shelf Expiration Date Model / Serial / Lot Graft Collagen 5x5cm Durepair Mater - [id number] Implanted:Qty: 1 on 02/26/2022 by Martin Banegas MD at [facility] [employer] (Tissue [id number] 07/18/2023 [id number] / / [id number] Cement Bone Pneum Mix 5cc Strl - [id number] Implanted:Qty: 1 on 02/26/2022 by Martin Banegas MD at [facility] [employer] [facility]-[id number] 12/16/2022 [id number] .01S / / [id number] Procedures Procedure Name Priority Date/Time Associated Diagnosis Comments HEPATITIS C ANTIBODY - ED W/REFLEX TO HCV QUANT PCR STAT 03/19/2022 10:48 AM EDT HEMOGLOBIN A1C Add-On 01/30/2022 8:46 PM EDT from Last 3 Months or Most Recently Relevant to Health Maintenance Results * [place] Hepatitis C Antibody (03/19/2022 10:48 AM EDT) Hepatitis C Antibody Negative Negative 03/19/2022 12:52 PM EDT [facility] Blood Venous blood specimen / Unknown Venipuncture / Unknown 03/19/2022 10:48 AM EDT 03/19/2022 11:14 AM EDT us Giles Gonzales MD LAB BLOOD ORDERABLES Radha l Result Performing Organization Address [facility] Co de Phone Number [facility]ARE [facility] [address] [place] [address] * (ABNORMAL) Hemoglobin A1c (01/30/2022 8:46 PM [...] Adults <6.0% Children and Adolescents <7.5% Source: [place] Diabetes Association. Standards of medical care in diabetes,2017. Diabetes Care.2017:40 (suppl 1):S1-S135. HbA1c assay performed by an ion-exchange chromatography method that is certified traceable to the DCCT. us Omid Steven MD LAB BLOOD ORDERABLES Final Result Performing Organization Address [facility] de Phone Number [facility]ALTHCARE [facility] [address] [place] [address] from Last 3 Months or Most Recently Relevant to Health Maintenance Insurance [facility] MEDICARE Advance Directives * DNR/DNI (Latest [...] would not be sustained on a ventilator rn long term care. Question Answer Comments DNR determined on/before admission [...] of Healthcare Surrogate: Elias Maldonado Care Teams Pigment And Lacquer Mixer Relationship Specialty Start Date End Date Kaveh Ryan MD [address] [place] [address] PCP - General 05/28/22 Kalli Shipley MD [address] [address] Service Attending Neurology 05/28/22
--- OUTSIDE RECORDS SUMMARY | 2025-08-09 12:49 | XMS_ITS | Clinical Summary ---
[facility] Organization [facility] Address [address] [place] [address] Care Team Providers Care Kettle Fry Cook Operator Name Role Phone Kaveh Ryan MD Primary Care Provider [phone] Allergies No known active allergies Medications levETIRAcetam [...] - 5.60 % 08/28/2022 9:18 AM EST [facility] Blood Venipuncture / Unknown 08/28/2022 8:27 AM EST 08/28/2022 8:56 AM EST Narrative [facility] - 08/28/2022 9:18 AM EST Hemoglobin A1C Ranges: Increased Risk for Diabetes 5.7% to 6.4% Diabetes >= 6.5% Diabetic Goal < 7.0% Christine Vilchis [facility] LAB BLOOD ORDERABLES Final Resu lt [facility]
[address] [place] [address], from Last 3 Months or Most Recently [...] Release to patient: Routine Release Care Teams Kettle Fry Cook Operator Relationship Specialty Start Date End Date Kaveh Ryan MD [address] ATTN: [place] [address] PCP - General Emergency Medicine 08/27/22
--- OUTSIDE RECORDS SUMMARY | 2025-08-09 12:49 | XMS_ITS | Encounter Summary ---
Author Organization [facility] Address [address] [place] [address] Care Team Providers Care Workflow Developer Name Role Phone Kaveh Ryan MD Primary Care Provider + [phone] Kalli Shipley MD Unavailable + [phone] Reason for Visit * Reason Comments Med Refill Encounter Details Date Type Department Care Team (Late st Contact Info) Description 05/07/2023 Refill [place] [facility] [address] [place] [address] Kalli Shipley MD [address] [place] [address] Social History Tobacco Use Types [...] [facility] [address] [place] [address] Juliann Adrian, OIL RAG WASHER [address] [facility] [address] [place] [address] documented as of this encounter Visit Diagnoses Not on filedocumented in this encounter Additional Health Concerns Assessment Noted Time A fall risk assessment has been complete d for the patient 02/26/2023 9:15 AM EDT A Body Mass Index follow-up plan has been documented for the patient 02/26/2023 12:36 PM EDT documented as of this encounter Care Teams Workflow Developer Relationship Specialty Start Date End Date Kaveh Ryan MD [address] [facility] [address] PCP - General 05/28/22 Kalli Shipley MD [address] [facility] [address] [place] [address] Service Attending Neurology 05/28/22 documented as of this encounter
--- OUTSIDE RECORDS SUMMARY | 2025-08-09 12:49 | XMS_ITS | Clinical Summary ---
Author Organization [facility] Address [address] [place] [address] Care Team Providers Care Optical Goods Drilling Machine Operator Name Role Phone Unavailable Primary Care Provider Unavailabl e Source Comments This information has been disclosed to you from confidential records protectedfrom disclosure by state law. You shall make no further disclosure of thisinformation without the specific, written, and informed release of theindividual to whom it pertains, or as otherwise permitted by law. A generalauthorization for the release of medical or other information is not sufficientfor the purposes of therelease of HIV test results or diagnoses. [id number] Health Encounters Date Type Department Care Team Description 07/25/2025 Orders Only [facility] [address] [place], [place] [id number] Shilpa Menon Nonintractable headache, unspecified chronicity pattern, unspecified headache type (Primary Dx); Other chronic pain from Last 3 Months Social History Tobacco Use Types Packs/Day Years Used Date Smoking Tobacco: Never Assessed Sex and Gender Information Value Date Recorded Sex Assigned at Not on file Legal Sex Male 12:30 PM EDT Gender Identity Not on file Sexual Orientation Not on file Plan of Treatment Not on file Insurance BLUE MEDICARE ADVANTAGE [facility] Care Address: [facility] [id number] [place] [address]
--- OUTSIDE RECORDS SUMMARY | 2025-08-09 12:49 | XMS_ITS | Encounter Summary ---
Author Organization [facility] Address [address] [place] [address] Care Team Providers Care Lead Level Designer Name Role Phone Unavailable Primary Care Provider Unavailabl e Source Comments This information has been disclosed to you from confidential records protectfrom disclosure by state law. You shall make no further disclosure of thisinformation without the specific, written, and informed release of theindividual to whom it pertains, or as otherwise permitted by law. A generalauthorization for the release of medical or other information is not sufficientfor the purposes of the release of HIV test results or diagnoses. [id number] Reason for Referral * Physician/HORTENCIA (Routine) - Closed Specialty Diagnoses / Procedures Referred By Ramon champagne Referred To Contact Neurology Diagnoses Nonintractable headache, unspecified chronicity pattern, unspecified headache type Other chronic pain Shilpa Menon [facility] [place] [address] Phone: tel: Referral ID Status Reason Start Date Expiration Date Visits Re quested Visits Authorized [id number] Closed 07/25/2025 01/21/2026 1 1 Encounter Details Date Type Department Care Team (Late st Contact Info) Description 07/25/2025 Orders Only [facility] PATIENT [facility] [address] [place], [place] [phone] Shilpa Menon [facility] [place] [address] Nonintractable headache, unspecified chronicity pattern, unspecified headache type (Primary Dx); Other chronic pain Social History Tobacco Use Types Packs/Day Years Used Date Smoking Tobacco: Never Assessed Sex and Gender Information Value Date Recorded Sex Assigned at Not on file Legal Sex Male 12:30 PM EDT Gender Identity Not on file Sexual Orientation Not on file documented as of this encounter Plan of Treatment Scheduled Referrals Name Type Priority Associated Diagnoses Orde r Schedule Other Headache/Facial Pain Outpatient Referral Routine Nonintractable headache, unspecified chronicity pattern, unspecified headache type Other chronic pain Ordered: 07/25/2025 documented as of this encounter Visit Diagnoses Diagnosis Nonintractable headache, unspecified chronicity pattern, unspecified headache type- Primary Other chronic pain documented in this encounter
== END 2025-08-07 23:59 ==
LOC: LAB.DROPOF 08-09 12:41
PROVIDERS: PCP Family Medicine; Visit Provider Family Medicine
DX: E87.1 Hypo-osmolality and hyponatremia (principal)
CPT/HCPCS: 80048

== ENCOUNTER 2025-09-07 10:22 | Outpatient (CLI) | payer MEDICARE, SELFPAY ==
[2025-09-07 15:54] LABS: Anion Gap 13.4 mEq/L (5-15); Blood Urea Nitrogen 21 mg/dl (9-20); Calcium 9.8 mg/dl (8.4-10.2); Carbon Dioxide 24 mmol/L (22.0-30.0); Chloride 102 mmol/L (98-107); Creatinine,Serum 1.30 mg/dl (0.66-1.25); Estimated Glomerular Filt Rate 54 ml/min (>60); GFR (African American) 66 ML/MIN (>60); Glucose 100 mg/dl (74-100); Potassium 5.4 mmoL/L (3.5-5.1); Sodium 134 mmol/L (136-145)
--- OUTSIDE RECORDS SUMMARY | 2025-09-11 10:35 | XMS_ITS | CCD ---
Author Organization Unknown Care Team Providers Care Biophysics Teacher Name Role Phone Unavailable Primary Care Provider Unavailabl e Unavailable Chronic Care Management Unavaila ble Summary Purpose DataExchange Insurance Providers Payer name Policy type / Coverage type Covered green party ID Effective Begin Date Effective End Date [facility] [id number] Unknown Unknown Family History Family History data not found Medication Administered No Medication Administered data Reason For Visit No Reason For Visit data Medical Equipment No Medical Equipment data Advance Directives No Advance Directive data
--- OUTSIDE RECORDS SUMMARY | 2025-09-11 10:36 | XMS_ITS | Clinical Summary ---
Author Organization [facility] Address [address] [place] [address] Care Team Providers Care Sales Promotion Manager Name Role Phone Unavailable Primary Care [...] therelease of HIV test results or diagnoses. [id number] Health Encounters Date Type Department Care Team Description 07/25/2025 Orders Only [facility] PATIENT [facility] [address] [place], [place] [phone] Shilpa Menon Nonintractable headache, unspecified chronicity pattern, [...]
--- OUTSIDE RECORDS SUMMARY | 2025-09-11 10:36 | XMS_ITS | Clinical Summary ---
Author Organization [facility] Address [address] [place] [address] Care Team Providers Care Educational Adviser Name Role Phone Kaveh Ryan MD Primary Care Provider [phone] Allergies No known active allergies Medications levETIRAcetam [...] - 5.60 % 08/28/2022 9:18 AM EST [facility] Blood Venipuncture / Unknown 08/28/2022 8:27 AM EST 08/28/2022 8:56 AM EST Narrative [facility] - 08/28/2022 9:18 AM EST Hemoglobin A1C Ranges: Increased Risk for Diabetes 5.7% to 6.4% Diabetes >= 6.5% Diabetic Goal < 7.0% Christine Vilchis [employer] [facility] LAB BLOOD ORDERABLES Final Resu lt [facility]
[address] [place] [address], from Last 3 Months or Most Recently [...] Release to patient: Routine Release Care Teams Educational Adviser Relationship Specialty Start Date End Date Kaveh Ryan MD [address] ATTN: [place] [address] PCP - General Emergency Medicine 08/27/22
--- OUTSIDE RECORDS SUMMARY | 2025-09-11 10:36 | XMS_ITS | Patient Health Record ---
Author Organization [facility] . Address [address] [facility] [address] [place] [address] Care Team Providers Care Diesel Mechanic Construction Name Role Phone HALLIE RUTH Unavailable [phone] Allergies Allergen (clinical drug ingredient) Drug/Non Drug Allergy documented on EMR Reaction Allergy Type Onset Date Status Isosorbide Nitrate Headaches Drug Allergy Active Reason For Referral No Information Medications Medication SIG (Take, Route, Frequency, Duration) Notes Start Date End Date Status Vitamin D3 1.25 MG (81414 UT) 1 capsule Orally weekly Acti ve [...] Risk Notes Problem Type 2 diabetes mellitus (18811542) DM type 2 (diabetes mellitus, type 2) (E11.9) Active confirmed Problem Encephalopathy (84338610) Encephalopathy (G93.40) Active confirmed Problem Renal failure syndrome (01490661) Uremic syndrome (N19) Active confirmed Plan Of [...] Lynda [place] (Medic[place] d) [address] [address] [place] [phone] [id number] Efrain Maldonado Self - patient is the insured Medical (General) History Medical History History ICD Code ZAHRA Uremic encephalopathy COPD w/ acute exacerbation from rhinovir us INOCENTE HTN CHF DM 2 SSI Surgical History Surgery Date(Month/Year) Cardiac Stents x3 Hospitalization History Reason Date(Month/Year) ZAHRA 12/2021
--- OUTSIDE RECORDS SUMMARY | 2025-09-11 10:36 | XMS_ITS | Encounter Summary ---
Author Organization [facility] Address [address] [place] [address] Care Team Providers Care Restaurant Assistant Name Role Phone Kaveh Ryan MD Primary Care Provider + [phone] Kalli Shipley MD Unavailable + [phone] Reason for Visit * Reason Comments Med Refill Encounter Details Date Type Department Care Team (Late st Contact Info) Description 05/07/2023 Refill [place] [facility] [address] [place] [address] Kalil Shipley MD [address] [place] [address] Social History Tobacco Use Types [...] Description 01/12/2026 11:20 AM EDT Office Visit [facility] [address] [place] [address] Juliann Adrian, EXCHANGE ENGINEER [address] [facility] [address] [place] [address] documented as of this encounter Visit Diagnoses Not on filedocumented in this encounter Additional Health Concerns Assessment Noted Time A fall risk assessment has been complete d for the patient 02/26/2023 9:15 AM EDT A Body Mass Index follow-up plan has been documented for the patient 02/26/2023 12:36 PM EDT documented as of this encounter Care Teams Restaurant Assistant Relationship Specialty Start Date End Date Kaveh Ryan MD [address] [facility] [place] [address] PCP - General 05/28/22 Kalli Shipley MD [address] [facility] [address] [place] [address] Service Attending Neurology 05/28/22 documented as of this encounter
--- OUTSIDE RECORDS SUMMARY | 2025-09-11 10:36 | XMS_ITS | Clinical Summary ---
Author Organization [facility] Address [address] [place] [address] Care Team Providers Care Steam Brush Operator Name Role Phone Kaveh Ryan MD Primary Care Provider + [phone] Kalli Shipley MD Unavailable + [phone] Medications atorvastatin (Lipitor) 80 MG tablet Take [...] morning. 05/16/20 22 Active HYDROcodone-acetam inophen ([place]) 5-325 MG tablet 01/27/20 23 Active nitroglycerin [...] for erectile dysfunction. Active HYDROcodone-acetam inophen ([place]) 7.5-325 MG tablet Take 7.5 tablets (56.25 [...] (02/25/2022): Added automatically from request for surgery [id number] Thrombocytopenia Resolved Problems Problem Noted Date Diagnosed [...] Description 01/12/2026 11:20 AM EDT Office Visit [facility] [address] [place] [address] Juliann Adrian, JAVA PROGRAMMING PROFESSOR [address] [address] Health Maintenance Due Date Last [...] 2019 UKY-Diabetes: Hemoglobin A1C 02/25/202307/2022, 01/30/2022, 10/15/2015 [id number] Vaccine (2024- season) 2025 07/21/2022, 09/09/2021, 01/16/2021, Additional history [...] this topic Medical Devices Implanted Type Area Farm Truck Driver Device Identifier Shelf Expiration Date Model / Serial / Lot Graft Collagen 5x5cm Durepair Mater - [id number] Implanted:Qty: 1 on 02/26/2022 by Martin Baneags MD at [facility] [employer] (Tissue [id number] 07/18/2023 [id number] / / [id number] Cement Bone Pneum Mix 5cc Strl - [id number] Implanted:Qty: 1 on 02/26/2022 by Martin Banegas MD at [facility]-[id number] 12/16/2022 615.05 .01S / / [id number] Procedures Procedure Name Priority Date/Time Associated Diagnosis Comments HEPATITIS C ANTIBODY - ED W/REFLEX TO HCV QUANT PCR STAT 03/19/2022 10:48 AM EDT HEMOGLOBIN A1C Add-On 01/30/2022 8:46 PM EDT from Last 3 Months or Most Recently Relevant to Health Maintenance Results * [place] Hepatitis C Antibody (03/19/2022 10:48 AM EDT) Pathologist [facility] Hepatitis C Antibody Negative Negative 03/19/2022 12:52 PM EDT [facility] Blood Venous blood specimen / Unknown Venipuncture / Unknown 03/19/2022 10:48 AM EDT 03/19/2022 11:14 AM EDT us Giles Gonzales MD LAB BLOOD ORDERABLES Radha alves Result [facility] [address] [place] [address] * (ABNORMAL) Hemoglobin A1c (01/30/2022 8:46 PM EDT) Pathologist [facility] Hemoglobin A1c 6.0(H) <5.7 % 01/31/2022 4:03 PM EDT [facility] Blood Venous blood specimen / Unknown Venipuncture / Unknown 01/30/2022 8:46 PM EDT 01/30/2022 8:54 PM EDT Narrative [facility] - 01/31/2022 4:03 PM EDT HA1C Interpretive Data: Diagnosis of Diabetes: Diabetic > or = 6.5% Pre-diabetic 5.7 to 6.4% Non-diabetic < or = 5.6% Glycemic Targets for Type I and Type II Diabetics: Non- Adults <7.0% Adults <6.0% Children and Adolescents <7.5% Source: [place] Diabetes [employer]. Standards of medical care in diabetes,2017. Diabetes Care.2017:40 (suppl 1):S1-S135. HbA1c assay performed by an ion-exchange chromatography method that is certified traceable to the DCCT. Omid Steven MD LAB BLOOD ORDERABLES Final Result [facility] [address] [place] [id number] from Last 3 Months or Most Recently [...] not be sustained on a ventilator termite inspector. Question Answer Comments DNR determined on/before admission [...] of Healthcare Surrogate: Elias Maldonado Care Teams Steam Brush Operator Relationship Specialty Start Date End Date Kaveh Ryan MD [address] [place] [address] PCP - General 05/28/22 Kalli Shipley MD [address] [facility] [address] [place] [address] Service Attending Neurology 05/28/22
--- OUTSIDE RECORDS SUMMARY | 2025-09-11 10:36 | XMS_ITS | Referral Summary ---
Author Organization [employer] ([place], [place], [place], [place], [place]) Address [address] [place] [address] Care Team Providers Care Fine Grade Bulldozer Operator Name Role Phone Unavailable Primary Care [...]
--- OUTSIDE RECORDS SUMMARY | 2025-09-11 10:36 | XMS_ITS | Clinical Summary ---
Author Organization [employer] ([place], [place], [place], [place], [place]) Address [address] [place] [address] Care Team Providers Care Endband Cutter Hand Name Role Phone Unavailable Primary Care [...]
--- OUTSIDE RECORDS SUMMARY | 2025-09-11 10:36 | XMS_ITS | Encounter Summary ---
Author Organization [facility] Address [address] [place] [address] Care Team Providers Care Visual Merchandising Manager Name Role Phone Unavailable Primary Care [...] release of HIV test results or diagnoses. [id number] Reason for Referral * Physician/HORTENCIA (Routine) - Closed Specialty Diagnoses / Procedures Referred By Ramon champagne Referred To Contact Neurology Diagnoses Nonintractable headache, unspecified chronicity pattern, unspecified headache type Other chronic pain Shilpa Menon [facility] [place] [address] Phone: tel: Referral ID Status Reason Start Date Expiration Date Visits Re quested Visits Authorized [id number] Closed 07/25/2025 01/21/2026 1 1 Encounter Details Date Type Department Care Team (Late st Contact Info) Description 07/25/2025 Orders Only [facility] PATIENT SERVICES [address] [place], [place] [phone] Shilpa Menon [facility] [place] [address] Nonintractable headache, unspecified chronicity pattern, unspecified headache [...]
== END 2025-09-07 23:59 ==
LOC: LAB.DROPOF 09-11 10:17
PROVIDERS: PCP Family Medicine; Visit Provider Family Medicine
DX: N18.9 Chronic kidney disease, unspecified (principal)
CPT/HCPCS: 80048

== ENCOUNTER 2025-09-12 13:01 | Day surgery (SDC) | payer MEDICARE, SELFPAY ==
[2025-09-12 13:08] VITALS: BP 160/82; PULSE 66; RESP 18; O2SAT 98; BMI 28.8
[2025-09-12 13:31] VITALS: BP 160/82; PULSE 66; RESP 18; O2SAT 98
[2025-09-12 13:32] VITALS: BP 160/82; PULSE 66; RESP 18; O2SAT 98
[2025-09-12 13:34] VITALS: BP 156/78; PULSE 73; RESP 16; O2SAT 97
--- NOTE | 2025-09-12 13:35 | P.PCN_ITS ---
Procedure Date: 09/12/25 Time: 13:30 Anesthesiologist:: Jeronimo Arteaga CRNA Complications:: None Pre-procedure Diagnosis:: Bilateral sacroiliitis Post-procedure Diagnosis:: Same Indications for Procedure:: Patient is a very pleasant 70-year-old male who comes our clinic today for diagn ostic bilateral sacroiliac joint injections of local anesthetic. Patient describes low lumbar back pain. Bilateral posterior hip pain. Difficulty with ambulation due to the low back pain as well as bilateral posterior hip pain. He reports difficulty transitioning from sitting to standing. He rates his pain 7/10. Procedure Details:: Procedure: Bilateral sacroiliac joint injections under fluoroscopy Informed consent was obtained and the risks and benefits of the procedure were explained to the patient.~ The patient was taken to the procedure room and noninvasive monitors were placed including a noninvasive blood pressure cuff and pulse oximeter.~ The patient was placed prone on the procedure table. Both hips were cleansed using Betadine as a cleansing solution. C-arm fluoroscopy was used to view the right sacroiliac joint.~ The skin and subcutaneous tissues were anesthetized using lidocaine 1.5% and a 25-gauge needle.~ After this, a 22-gauge spinal needle was inserted under fluoroscopic guidance into the inferior aspect of the right sacroiliac joint.~ Omnipaque dye was injected and good spread was seen throughout the joint.~ After this, approximately 5 mL of bupivacaine, 0.25% was incrementally injected into the right sacroiliac joint. We then moved to the left sacroiliac joint.~ The skin and subcutaneous tissues were anesthetized using lidocaine 1.5% and a 25-gauge needle.~ After this, a 22- gauge spinal needle was inserted under fluoroscopic guidance into the inferior aspect of the left sacroiliac joint.~ Omnipaque dye was injected and good spread was seen throughout the joint. After this, approximately 5 mL of bupivacaine, 0.25% was incrementally injected into the left sacroiliac joint.~ The patient tolerated the procedure well with no complications. The patient was observed in the Pain Clinic and then was discharged home neurologically intact. Normal: Normal Plan and Disposition:: Patient was discharged without incident.
[2025-09-12] MEDS: LIDOCAINE 1% 5ML PF VIAL 5 ML IJ (13:45)
[2025-09-12] MEDS: BUPIVACAINE 0.25% 10ML INJ 25 MG IJ (13:46)
== END 2025-09-12 13:34 | disposition home or self-care (01) ==
PROVIDERS: PCP Family Medicine; Visit Provider Nurse Anesthetist, Certified Registered
DX: M46.1 Sacroiliitis, not elsewhere classified (principal); I25.10 Atherosclerotic heart disease of native coronary artery without angina pectoris; I50.9 Heart failure, unspecified; E11.9 Type 2 diabetes mellitus without complications; G93.40 Encephalopathy, unspecified; K21.9 Gastro-esophageal reflux disease without esophagitis; J44.9 Chronic obstructive pulmonary disease, unspecified; E78.5 Hyperlipidemia, unspecified; F32.9 Major depressive disorder, single episode, unspecified; E66.9 Obesity, unspecified; Z68.28 Body mass index [BMI] 28.0-28.9, adult; Z83.3 Family history of diabetes mellitus; Z82.49 Family history of ischemic heart disease and other diseases of the circulatory system; Z79.899 Other long term (current) drug therapy; Z79.82 Long term (current) use of aspirin; Z79.02 Long term (current) use of antithrombotics/antiplatelets; Z87.891 Personal history of nicotine dependence
CPT/HCPCS: G0260; J0665; J2003

== ENCOUNTER 2025-09-15 10:18 | Outpatient (CLI) | payer MEDICARE, SELFPAY ==
--- OUTSIDE RECORDS SUMMARY | 2025-09-15 10:20 | XMS_ITS | Clinical Summary ---
Author Organization [facility] Address [address] [place] [address] Care Team Providers Care Block Operator Name Role Phone Unavailable Primary Care [...] therelease of HIV test results or diagnoses. [id number] Health Encounters Date Type Department Care Team Description 07/25/2025 Orders Only [facility] PATIENT SERVICES [address] [place], [place] [id number] Shilpa Menon Nonintractable headache, unspecified chronicity pattern, [...] Not on file Insurance BLUE MEDICARE ADVANTAGE [facility] Care Address: [facility] [id number] [place] [address]
--- OUTSIDE RECORDS SUMMARY | 2025-09-15 10:20 | XMS_ITS | Clinical Summary ---
Author Organization [facility] Address [address] [place] [address] Care Team Providers Care Soft Drink Powder Mixer Name Role Phone Kaveh Ryan MD Primary Care Provider [phone] Allergies No known active allergies Medications levETIRAcetam [...] - 5.60 % 08/28/2022 9:18 AM EST [facility] Blood Venipuncture / Unknown 08/28/2022 8:27 AM EST 08/28/2022 8:56 AM EST Narrative [facility] - 08/28/2022 9:18 AM EST Hemoglobin A1C Ranges: Increased Risk for Diabetes 5.7% to 6.4% Diabetes >= 6.5% Diabetic Goal < 7.0% Christine Vilchis QUARRY EQUIPMENT OPERATOR LAB BLOOD ORDERABLES Final Resu lt [facility]
[address] [place] [address], from Last 3 Months or Most Recently [...] Release to patient: Routine Release Care Teams Soft Drink Powder Mixer Relationship Specialty Start Date End Date Kaveh Ryan MD [address] ATTN: [place] [address] PCP - General Emergency Medicine 08/27/22
--- OUTSIDE RECORDS SUMMARY | 2025-09-15 10:20 | XMS_ITS | CCD ---
Author Organization Unknown Care Team Providers Care Kindergarten Aide Name Role Phone Unavailable Primary Care Provider Unavailabl e Unavailable Chronic Care Management Unavaila ble Summary Purpose DataExchange Insurance Providers Payer name Policy type / Coverage type Covered democrat ID Effective Begin Date Effective End Date [facility] [id number] Unknown Unknown Family History Family History data not found Medication Administered No Medication Administered data Reason For Visit No Reason For Visit data Medical Equipment No Medical Equipment data Advance Directives No Advance Directive data
--- OUTSIDE RECORDS SUMMARY | 2025-09-15 10:20 | XMS_ITS | Referral Summary ---
Author Organization [employer] ([place], [place], [place], [place], [place]) Address [address] [place] [address] Care Team Providers Care Director Transition Name Role Phone Unavailable Primary Care Provider [...]
--- OUTSIDE RECORDS SUMMARY | 2025-09-15 10:20 | XMS_ITS | Patient Health Record ---
Author Organization Dialysis [facility] . Address [address] [place] [address] Care Team Providers Care Canning Machine Operator Name Role Phone HALLIE RUTH Unavailable [phone] Allergies Allergen (clinical drug ingredient) Drug/Non Drug Allergy documented on EMR Reaction Allergy Type Onset Date Status Isosorbide Nitrate Headaches Drug Allergy Active Reason For Referral No Information Medications Medication SIG (Take, Route, Frequency, Duration) Notes Start Date End Date Status Vitamin D3 1.25 MG (52340 UT) 1 capsule Orally weekly Acti ve [...] Risk Notes Problem Type 2 diabetes mellitus (61697293) DM type 2 (diabetes mellitus, type 2) (E11.9) Active confirmed Problem Encephalopathy (24392446) Encephalopathy (G93.40) Active confirmed Problem Renal failure syndrome (74785478) Uremic syndrome (N19) Active confirmed Plan Of [...] Lynda [place] (Medic[place]) [address] [address] [place] [phone] [id number] Efrain Maldonado Self - patient is the insured Medical (General) History Medical History History ICD Code ZAHRA Uremic encephalopathy COPD w/ acute exacerbation from rhinovir us INOCENTE HTN CHF DM 2 SSI Surgical History Surgery Date(Month/Year) Cardiac Stents x3 Hospitalization History Reason Date(Month/Year) ZAHRA 12/2021
--- OUTSIDE RECORDS SUMMARY | 2025-09-15 10:21 | XMS_ITS | Clinical Summary ---
Author Organization [facility] Address [address] [place] [address] Care Team Providers Care Shoulder Pad Molder Name Role Phone Kaveh Ryan MD Primary Care Provider + [phone] Kalli Shipley MD Unavailable + [phone] Medications atorvastatin (Lipitor) 80 MG tablet Take [...] the morning. 05/16/20 22 Active HYDROcodone-acetam inophen (Todd) 5-325 MG tablet 01/27/20 23 Active nitroglycerin [...] needed for erectile dysfunction. Active HYDROcodone-acetam inophen (Todd) 7.5-325 MG tablet Take 7.5 tablets (56.25 [...] (02/25/2022): Added automatically from request for surgery [id number] Thrombocytopenia Resolved Problems Problem Noted Date Diagnosed [...] 01/12/2026 11:20 AM EDT Office Visit [facility] [address] [place] [address] Juliann Adrian, MANAGER INTERNSHIP [address] [address] Health Maintenance Due Date Last [...] 2019 UKY-Diabetes: Hemoglobin A1C 02/25/202307/2022, 01/30/2022, 10/15/2015 [id number] Vaccine (2024- season) 2025 07/21/2022, 09/09/2021, 01/16/2021, [...] this topic Medical Devices Implanted Type Area Battery Inspector Device Identifier Shelf Expiration Date Model / Serial / Lot Graft Collagen 5x5cm Durepair Mater - [id number] Implanted:Qty: 1 on 02/26/2022 by Martin Banegas MD at [facility] [employer] ([id number] [id number] 07/18/2023 [id number] / / [id number] Cement Bone Pneum Mix 5cc Strl - [id number] Implanted:Qty: 1 on 02/26/2022 by Martin Banegas MD at [id number] 12/16/2022 [id number] .[id number] / / [id number] Procedures Procedure Name Priority Date/Time Associated Diagnosis Comments HEPATITIS C ANTIBODY - ED W/REFLEX TO HCV QUANT PCR STAT 03/19/2022 10:48 AM EDT HEMOGLOBIN A1C Add-On 01/30/2022 8:46 PM EDT from Last 3 Months or Most Recently Relevant to Health Maintenance Results * [place] Hepatitis C Antibody (03/19/2022 10:48 AM EDT) Pathologist [facility] Hepatitis C Antibody Negative Negative 03/19/2022 12:[address] [facility] Blood Venous blood specimen / Unknown Venipuncture / Unknown 03/19/2022 10:48 AM EDT 03/19/2022 11:14 AM EDT us Giles Gonzales MD LAB BLOOD ORDERABLES Radha alves Result [facility] [address] [place] [address] * (ABNORMAL) Hemoglobin A1c (01/30/2022 8:46 PM EDT) Pathologist [facility] Hemoglobin A1c 6.0(H) <5.7 % 01/31/2022 4:[address] [facility] Blood Venous blood specimen / [...] Adults <6.0% Children and Adolescents <7.5% Source: [place] [employer]. Standards of medical care in diabetes,2017. Diabetes Care.2017:40 (suppl 1):S1-S135. HbA1c assay performed by an ion-exchange chromatography method that is certified traceable to the DCCT. Omid Steven MD LAB BLOOD ORDERABLES Final Result [facility] [address] [place] [id number] from Last 3 Months or Most Recently [...] would not be sustained on a ventilator terminal make up operator. Question Answer Comments DNR determined on/before [...] of Healthcare Surrogate: Elias Maldonado Care Teams Shoulder Pad Molder Relationship Specialty Start Date End Date Kaveh Ryan MD [address] [place] [address] PCP - General 05/28/22 Kalli Shipley MD [address] [facility] [address] [place] [address] Service Attending Neurology 05/28/22
--- OUTSIDE RECORDS SUMMARY | 2025-09-15 10:21 | XMS_ITS | Encounter Summary ---
Author Organization [facility] Address [address] [place] [address] Care Team Providers Care Nurse Informatics Educator Name Role Phone Unavailable Primary Care Provider [...] release of HIV test results or diagnoses. [id number] Reason for Referral * Physician/HORTENCIA (Routine) - Closed Specialty Diagnoses / Procedures Referred By Ramon champagne Referred To Contact Neurology Diagnoses Nonintractable headache, unspecified chronicity pattern, unspecified headache type Other chronic pain Shilpa Menon [place] [address] Phone: tel: Referral ID Status Reason Start Date Expiration Date Visits Re quested Visits Authorized [id number] Closed 07/25/2025 01/21/2026 1 1 Encounter Details Date Type Department Care Team (Late st Contact Info) Description 07/25/2025 Orders Only [facility] PATIENT SERVICES [address] [place], [place] [phone] Shilpa Menon [facility] [address] Nonintractable headache, unspecified chronicity pattern, unspecified headache [...]
--- OUTSIDE RECORDS SUMMARY | 2025-09-15 10:21 | XMS_ITS | Encounter Summary ---
Author Organization [facility] Address [address] [place] [address] Care Team Providers Care Rapid Transit Operator Name Role Phone Kaveh Ryan MD Primary Care Provider + [phone] Kalli Shipley MD Unavailable + [phone] Reason for Visit * Reason Comments Med Refill Encounter Details Date Type Department Care Team (Late st Contact Info) Description 05/07/2023 Refill [place] [facility] [address] [place] [address] Kalli Shipley MD [address] [place] [address] Social History Tobacco Use Types [...] Description 01/12/2026 11:20 AM EDT Office Visit [facility] [address] [place] [address] Juliann Adrian, SHIRT IRONER [address] [facility] [address] [place] [address] documented as of this encounter Visit Diagnoses Not on filedocumented in this encounter Additional Health Concerns Assessment Noted Time A fall risk assessment has been complete d for the patient 02/26/2023 9:15 AM EDT A Body Mass Index follow-up plan has been documented for the patient 02/26/2023 12:36 PM EDT documented as of this encounter Care Teams Rapid Transit Operator Relationship Specialty Start Date End Date Kaveh Ryan MD [address] [facility] [place] [address] PCP - General 05/28/22 Kalli Shipley MD [address] [facility] [address] [place] [address] Service Attending Neurology 05/28/22 documented as of this encounter
--- OUTSIDE RECORDS SUMMARY | 2025-09-15 10:21 | XMS_ITS | Clinical Summary ---
Author Organization [employer] ([place], [place], [place], [place], [place]) Address [address] [place] [address] Care Team Providers Care Forklift Driver Name Role Phone Unavailable Primary Care [...]
[2025-09-15 12:11] LABS: Anion Gap 11.6 mEq/L (5-15); Blood Urea Nitrogen 18 mg/dl (9-20); Calcium 9.6 mg/dl (8.4-10.2); Carbon Dioxide 25 mmol/L (22.0-30.0); Chloride 102 mmol/L (98-107); Creatinine,Serum 1.30 mg/dl (0.66-1.25); Estimated Glomerular Filt Rate 54 ml/min (>60); GFR (African American) 66 ML/MIN (>60); Glucose 100 mg/dl (74-100); Potassium 4.6 mmoL/L (3.5-5.1); Sodium 134 mmol/L (136-145)
== END 2025-09-15 23:59 | disposition home or self-care (01) ==
LOC: LAB 10:19
PROVIDERS: PCP Family Medicine; Visit Provider Family Medicine
DX: E87.5 Hyperkalemia (principal)
CPT/HCPCS: 36415; 80048

== ENCOUNTER 2025-10-02 14:50 | Emergency (ER) | payer MEDICARE, SELFPAY ==
[2025-10-02 14:50] VITALS: BP 157/90; PULSE 78; RESP 18; TEMP 36.7; O2SAT 97; BMI 29.7
[2025-10-02 14:55] VITALS: BP 157/90; PULSE 77; O2SAT 98
--- NOTE | 2025-10-02 15:08 | ED_ITS ---
<Statement entered by Krish Nguyen MD - 10/02/25 18:52> I was consulted by the HORTENCIA, and we discussed the complexity of the problems being addressed. I approve the treatment and management plan for this patient's care in the emergency department, thus performing a substantive portion of the medical decision making. Krish Nguyen MD Discharge Plan Disposition Patient Disposition: Home, Self-Care Condition: Good Prescriptions Prescriptions: No Action ranolazine 1,000 mg tablet extended release 12 hr 1,000 mg PO BID 90 Days Qty: 180 3RF albuterol sulfate 90 mcg/actuation HFA aerosol inhaler 2 puff inhalation Q4-6H PRN (Reason: shortness of breath or wheezing) Qty: 18 5RF nitroglycerin 0.4 mg tablet, sublingual 0.4 mg sublingual NEEDED PRN (Reason: Chest Pain) Qty: 30 1RF desvenlafaxine succinate [Pristiq] 50 mg tablet extended release 24 hr 50 mg PO DAILY Qty: 30 2RF fluticasone propionate [Flonase Allergy Relief] 50 mcg/actuation spray,suspension 1 spray intranasal BID Qty: 16 3RF Rx Instructions: administer into each nostril azelastine 137 mcg (0.1 %) spray,non-aerosol 1 spray intranasal BID Qty: 30 2RF Rx Instructions: administer into each nostril for 1 week brexpiprazole [Rexulti] 1 mg tablet 0RF atorvastatin 80 mg tablet 80 mg PO DAILY 90 Days Qty: 90 4RF cholecalciferol (vitamin D3) 25 mcg (1,000 unit) capsule 25 mcg PO DAILY 90 Days Qty: 90 4RF metoprolol succinate 50 mg tablet extended release 24 hr 50 mg PO DAILY 90 Days Qty: 90 4RF lacosamide 150 mg tablet 150 mg PO BID 90 Days Qty: 180 4RF amitriptyline 10 mg tablet 10 mg PO DAILY Qty: 90 2RF pantoprazole 40 mg tablet,delayed release (DR/EC) 40 mg PO DAILY Qty: 90 2RF hydrocodone-acetaminophen 10-325 mg tablet 1 tab PO Q6H PRN (Reason: pain) Qty: 120 0RF aspirin 81 MG tablet,chewable 81 mg PO DAILY clopidogrel 75 mg tablet 75 mg PO DAILY Referrals Follow up/Referrals: Malcolm Dickerson MD [Primary Care Provider, Family Practice] - See instructions Activity Restrictions/Add. Instructions Additional Instructions/Restrictions: Please return to the emergency department with any worsening signs or symptoms. Please keep your follow-up with your primary care doctor for refill of your medications in the upcoming days/weeks. Clinical Impressions Clinical Impression: Encounter for medical assessment Instructions Patient Instructions: Healthy Ways to Manage Anger Print Language Print Language: Yoruba Discharge ED Provider: Carmenza Harris General Adult HPI General Chief complaint: Psychiatric Symptoms Stated complaint: evaluation Time Seen by Provider: 10/02/25 14:58 Mode of Arrival: Ambulatory Source of Information: Patient Limitations: No Limitations History of Present Illness HPI narrative: 70-year-old male presents to the emergency department via PD for potential evaluation. Per PD patient is cooperative ball, apparently was in a argument with his girlfriend and he ended up flushing his meds down the toilet . Patient to bedside's GCS of 15, adamantly denies any SI or HI, denies any visual auditory hallucinations, denies any fever chills chest pain shortness of breath nausea vomiting constipation diarrhea no urinary symptomatology, does have past medical history consistent with former smoker, former alcohol use, 7 years clean and sober, denies any illicit drug use, other past medical history consist YUE/MDD, migraines, parkinsonian syndrome, COPD carotid artery disease status post 5 stent placements, hypertension, hyperlipidemia, INOCENTE, seizure disorder status post what sounds like craniotomy/craniectomy,. Initial triage vitals are unremarkable Please note that above description of symptoms, in this electronic medical record under categorization of recalled from ER triage doctor by RN are reflective of an initial nursing assessment, however, is not reflective of my full history and physical exam that was personally taken and clarified. Consequentially, this preceding description of symptoms, which may include the patient's categorized chief complaint in the EMR, do not reflect my personal clinical impression, and the ultimate description of history of present illness and patient stated complaints should be deferred to this section of the note. Unless stated otherwise or congruent with this section of the note, additional signs, symptoms, or incongruence should be interpreted as inaccurate with my cl inical impression. Onset (ago): hour(s) Related Data Home Medications ?Medication ?Instructions ?Recorded ?Confirmed aspirin 81 mg chewable tablet 81 mg PO DAILY 03/11/19 09/21/25 clopidogrel 75 mg tablet 75 mg PO DAILY 03/19/2502/10 Previous Rx's ?Medication ?Instructions ?Recorded ranolazine 1,000 mg 1,000 mg PO BID 90 days #180 tabs 09/22/24 tablet,extended release,12 hr atorvastatin 80 mg tablet 80 mg PO DAILY 90 days #90 t abs 01/17/25 cholecalciferol (vitamin D3) 25 25 mcg PO DAILY 90 day s #90 caps 01/25/25 mcg (1,000 unit) capsule fluticasone propionate 50 1 spray intranasal BID #16 g laney 02/02/25 mcg/actuation nasal spray,suspension (Flonase Allergy Relief) azelastine 137 mcg (0.1 %) nasal 1 spray intranasal BI D #30 mL 03/10/25 spray metoprolol succinate 50 mg 50 mg PO DAILY 90 days #90 tabs 03/14/25 tablet,extended release 24 hr albuterol sulfate 90 mcg/actuation 2 puff inhalation Q 4-6H PRN 03/30/25 aerosol inhaler shortness of breath or wheez ing #18 grams lacosamide 150 mg tablet 150 mg PO BID 90 days #180 t abs 05/02/25 nitroglycerin 0.4 mg sublingual 0.4 mg sublingual N EEDED PRN 07/11/25 tablet Chest Pain #30 tabs desvenlafaxine succinate 50 mg 50 mg PO DAILY #30 tabs 08/09/25 tablet,extended release 24 hr (Pristiq) amitriptyline 10 mg tablet 10 mg PO DAILY #90 tabs pantoprazole 40 mg tablet,delayed 40 mg PO DAILY #90 t abs 09/04/25 release hydrocodone 10 mg-acetaminophen 1 tab PO Q6H PRN pain #120 tabs 09/12/25 325 mg tablet Allergies Allergy/AdvReac Type Severity Reaction Status Date / Time No Known Allergies Allergy Verified 09/21/25 09:21 [facility] Disclaimer: The information contained in this section may have been updated after the patient was seen, as this information can be updated by other users. Medical History History of impacted cerumen Chronic, continuous use of opioids Chronic headache GE reflux Sinus headache Sinus pressure Sinus pain Sinusitis Hyperkalemia Hyponatremia Chest pain Sinusitis, acute Daytime somnolence History of substance abuse History of alcohol abuse Anemia COVID-19 Thrombocytopenia Seizure BMI 31.0-31.9,adult Enceph/encephmye oth dis Fall CHF (congestive heart failure) Obesity (BMI 30-39.9) Cigarette smoker 40 pack years, quit in 2014 Diabetes SNHL (sensorineural hearing loss) Fluid level behind tympanic membrane of both ears Worsening headaches Hearing loss Poor balance Elevated serum creatinine Decreased GFR SOB (shortness of breath) on exertion Angina pectoris Elevated left ventricular end-diastolic pressure (LVEDP) Colon cancer screening Abnormal findings on diagnostic imaging of heart and coronary circulation Typical angina Diastolic dysfunction Encephalopathy chronic Likely multifactorial including history of PRES, vascular component, major depression with psychotic features, history of polysubstance abuse, alcohol abuse in the past, chronic narcotic therapy. At risk for vascular dementia. Major depressive disorder Lesion of brain Acute renal failure Chest pain Dyspnea Palpitations Sinus tachycardia Vitamin D deficiency Orthopnea COPD exacerbation Constipation Abdominal pain Near syncope Headache Lightheadedness SOB (shortness of breath) Other long term care social worker (current) drug therapy Chest pain, atypical CAD (coronary artery disease) Acute exacerbation of chronic low back pain Carotid artery disease Hypertensive disorder Hyperlipidemia Coronary arteriosclerosis Surgical History History of cardiac catheterization Stented coronary artery Family History Other Coronary artery disease Diabetes Heart attack Hyperlipidemia Hypertension No significant family history Stroke Social History Smoking Status: Never smoker years smoked: 40 how long ago did patient quit smokin years ago second hand exposure: No alcohol intake: former counseling provided: provider counseling substance use type: denies use current occupational status: retired Travel in the last 8 weeks?: None household members: significant other housing: house number of children: 3 current occupational exposures/hazards: No caffeine: Yes Have you lived/traveled outside [place] in past 30 days?: No Contact w/someone who lives/traveled outside [place] past 30 days?: No Exposure to someone with infectious disease in past 14 days?: No Do you have a fever (greater than 100.4 F or 38 C)?: No Have you tested positive for COVID-19?: No Exposed to someone with COVID-19 in past 14 days?: No Do you have a sore throat?: No Do you have a cough?: No Do you have any weakness?: No Do you have any diarrhea?: No Are you experiencing any unusual bleeding?: No Do you have any muscle aches/pain?: No Do you have any abdominal pain?: No Are you experiencing loss of taste or smell?: No Other Medical History Have you received the Flu Vaccine for this season: No Have you received the Pneumonia Vaccine: Yes ROS Obtained: Yes All systems reviewed & no additional complaints except as documented Physical Exam General General appearance: alert and in no apparent distress Head Head exam: atraumatic and normocephalic Eye Eye exam: Present PERRL and EOMI ENT ENT exam: Present mucous membranes moist Neck Neck exam: Present normal inspection Chest Chest inspection: Present normal inspection and symmetric chest wall rise Respiratory Respiratory exam: Present normal lung sounds bilaterally; Absent respiratory distress Cardiovascular Cardiovascular exam: Present regular rate and normal rhythm Abdominal Exam Abdominal exam: Present soft; Absent tenderness Extremities Exam Extremities exam: Present normal inspection Neurological Exam Neurological exam: Present alert, oriented X3 and other (Patient is GCS of 15, alert oriented to person and place.) Psychiatric Psychiatric exam: Present normal affect and normal mood; Absent homicidal ideation or suicidal ideation Skin Skin exam: Present warm and dry Medical Decision Making Medical Records Medical records reviewed: Yes I reviewed the patient's medical records. Screening: Per USPSTF and CDC recommendations, given the prevalence of disease in our region, it is our hospital?s policy to screen for HIV and viral Hepatitis for all patients aged 18 and over and those with ongoing risk factors. Taco Inquiry Pt receiving controlled substance: No Taco was queried for this patient: No Vital Signs: 10/02/25 14:50 10/02/25 14:55 10/02/25 15:35 Temperature 98.0 F Temperature Source Oral Pulse Rate 77 Pulse Rate [Radial] 78 Respiratory Rate 18 Blood Pressure 157/90 H Blood Pressure [Right Arm] 157/90 H Blood Pressure Mean [Right Arm] 112 Blood Pressure Source [Right Arm] Automatic Cuff Blood Pressure Position [Right Arm] Sitting 02 Sat by Pulse Oximetry 97 98 98 Oxygen Delivery Method Room Air Room Air Orders (Tests/Meds): ORDERS Category Date Time Status HIV Combo Stat Lab 10/02/25 15:13 Ordered Hepatitis C Ab Qual. W/ RFX Stat Lab 10/02/25 15:13 Ordered Medical Decision Narrative: 70-year-old male presents to the emergency department via PD for evaluation, differential diagnose include but not limited to, SI, HI, anger outburst, anxiety among others. I discussed this patient's case with the attending physician she saw and examined the patient as well Patient is GCS of 15, adamantly denies any SI or HI visual auditory hallucination the bedside, patient states that I would never do anything to my girlfriend. I know what I did was stupid I am just here to get my meds back . Will reach out to patient's PCP for consideration of refilling the patient's medication as patient has multiple antipsychotics, controlled medications and antiseizure medications and will need refills. Patient states he is already taken all of his at home meds this morning. Nursing staff reached out to the patient's PCP and pharmacy, they will refill of the medications that are noncontrolled/that they are able to via pharmacy system. I discussed this with the patient at the bedside patient is in agreement with the current discharge plan/treatment plan. Patient is GCS of 15, I believe that he is capable of making own decisions, patient once again adamant denies any SI, HI no visual auditory hallucinations appears to be at his neurological/behavioral baseline. I do not believe he is a threat to himself or others thus we will forego any further laboratory workup and patient will be discharged to PD. Critical Care Critical Care Time Critical Care Time: No
[2025-10-02 15:35] VITALS: O2SAT 98
[2025-10-02 15:55] VITALS: BP 150/97; PULSE 75; RESP 16; TEMP 36.8; O2SAT 98
== END 2025-10-02 15:59 | disposition home or self-care (01) ==
PROVIDERS: Emergency Provider Student in an Organized Health Care Education/Training Program; PCP Family Medicine
DX: R45.1 Restlessness and agitation (principal); Z76.0 Encounter for issue of repeat prescription
CPT/HCPCS: 99282; 99284